=== PATIENT | female | born 1945 ===

== ENCOUNTER 2016-11-14 20:40 | Emergency (ER) | payer MEDICARE ==
[2016-11-14 20:40] VITALS: BMI 26.0
[2016-11-14] MEDS ORDERED: Oxycodone/Acetaminophen 5/325 mg Tab PO ONE (21:44)
[2016-11-14] MEDS ORDERED: Oxycodone/Acetaminophen 5/325 mg Tab ONE (21:45)
--- NOTE | 2016-11-14 21:45 | ED PDOC ---
Upper Extremity Pain/Injury Time Seen by Provider: 11/14/16 21:03 Chief Complaint (Nursing): Upper Extremity Problem/Injury Chief Complaint (Provider): right arm pain History Per: Patient History/Exam Limitations: no limitations Additional Complaint(s): patient presents for evaluation of right arm pain that started after a fall 2015 she states she took her pain medications at 4pm, which were given to her today, it helped a little but pain returned thus prompted re-evaluation (-) weakness, tingling to the arm. no new injury of note patient seen here 11/13 and earlier today for same. she notes following up once with her doctor 2 weeks ago, he gave her an injection which helped the pain, she used the shoulder sling for a few days. Past Medical History Reviewed: Historical Data, Nursing Documentation, Vital Signs Vital Signs: Last Vital Signs Temp 98.1 F 11/14/16 21:13 Pulse 75 11/14/16 21:13 Resp 16 11/14/16 21:13 BP 159/74 H 11/14/16 21:13 Pulse Ox 100 11/14/16 21:13 - Medical History PMH: Diabetes, Gastritis, HTN, Hypercholesterolemia - Family History Family History: States: Unknown Family Hx - Living Arrangements Living Arrangements: With Family - Social History Current smoker - smoking cessation education provided: No Alcohol: Occasional Drugs: Denies - Home Medications Home Medications: Ambulatory Orders Medication Instructions Recorded Ciprofloxacin/Ciprofloxa HCl 500 mg PO Q12 #14 tab 04/26/15 [Ciprofloxacin] Dicyclomine [Bentyl] 20 mg PO Q12 PRN #20 tab 04/26/15 Naproxen [Naprosyn] 500 mg PO BID PRN #14 tablet 09/16/16 traMADol [Ultram] 50 mg PO TID PRN #12 tab 09/16/16 Acetaminophen/Codeine 1 ea PO Q6 PRN #10 tab 11/13/16 [Tylenol/Codeine 300 MG/30 MG] Ibuprofen [Motrin Tab] 800 mg PO Q8 PRN #20 tab 11/14/16 Metaxalone [Skelaxin] 800 mg PO TID PRN #15 tablet 11/14/16 oxyCODONE/Acetaminophen [Percocet 1 ea PO Q8 #6 tab 11/14/16 5/325 mg Tab] - Allergies Allergies/Adverse Reactions: Allergies Allergy/AdvReac Type Severity Reaction Status Date / Time No Known Allergies Allergy Verified 11/14/16 13:50 Review of Systems ROS Statement: Except As Marked, All Systems Reviewed And Found Negative Constitutional: Negative for: Fever Cardiovascular: Negative for: Chest Pain Respiratory: Negative for: Shortness of Breath Neurological: Negative for: Headache, Dizziness Physical Exam - Reviewed Nursing Documentation Reviewed: Yes Vital Signs Reviewed: Yes - Physical Exam Appears: Positive for: Well Head Exam: Positive for: NORMAL INSPECTION Skin: Positive for: Normal Color, Warm, Dry Eye Exam: Positive for: Normal appearance Neck: Positive for: Normal, Painless ROM, Supple Cardiovascular/Chest: Positive for: Regular Rate, Rhythm. Negative for: Tachycardia Respiratory: Positive for: Normal Breath Sounds. Negative for: Respiratory Distress Pulses-Radial (L): 2+ Pulses-Radial (R): 2+ Extremity: Positive for: Normal ROM (with some pain to the right shoulder with overhead movement, no crepitus ), Tenderness, Capillary Refill (normal ). Negative for: Calf Tenderness, Deformity, Swelling Lymphatic: Positive for: Normal Exam Neurologic/Psych: Positive for: Alert, Oriented, Gait (normal ), Other ( strength 5/5 upper and lower extremities ). Negative for: Motor/Sensory Deficits - ECG O2 Sat by Pulse Oximetry: 100 Pulse Ox Interpretation: Normal Medical Decision Making Medical Decision Makin71 y/o with pain in the right arm since 08/2016 after fall. seen here at time of fall and 11/13 and 11/14 charts reviewed, ct and xray no acute finding exam is benign, she appears in NAD Dr. Robbins in at bedside for evaluation. no further imaging needed. will give 1 percocet and several for discharge. she will continue motrin and muscle relaxer percocet 5mg ordered toradol 30mg IM ordered pain improved discussed with her the need for close follow up. shoulder sling for comfort. Disposition - Clinical Impression Clinical Impression: Arm pain - Patient ED Disposition Is Patient to be Admitted: No Counseled Patient/Family Regarding: Diagnosis, Need For Followup, Rx Given - Disposition Referrals: [facility] [Outside] [facility] [Outside] [facility] [Outside] Greg Schafer MD [Staff Provider] - Raleigh Spann MD [Staff Provider] - Disposition: Routine/Home Disposition Time: 22:11 Condition: IMPROVED Additional Instructions: your pain is been ongoing for several months you need to follow up without fail with your primary care doctor and referral to orthopedic surgeon Prescriptions: oxyCODONE/Acetaminophen [Percocet 5/325 mg Tab] 1 ea PO Q8 #6 tab Instructions: Shoulder Sprain (ED), Arm Pain (ED) Print Language: HUNGARIAN
[2016-11-14 22:46] VITALS: BP 149/68; PULSE 83; RESP 17; TEMP 98.7; O2SAT 98
== END 2016-11-14 22:46 | disposition home or self-care (01) ==
LOC: H.ER 20:40
DX: M79.601 Pain in right arm (principal)
CPT/HCPCS: 96372; 99281; 99283; J1885

== ENCOUNTER 2017-09-20 08:44 | Emergency (ER) | payer MEDICARE ==
[2017-09-20 08:44] VITALS: BMI 26.0
[2017-09-20 09:01] VITALS: TEMP 97.2
[2017-09-20] MEDS ORDERED: Morphine 4 MG/ML VIAL IVP STA (09:40)
[2017-09-20] MEDS ORDERED: Labetalol 5mg/ml (4ml) IVP STA (09:44)
[2017-09-20 10:10] LABS: VENOUS BLOOD GAS BASE EXCESS 3.8 mmol/L (0.0-2.0); VENOUS BLOOD GAS PCO2 29 mmHg (40-60); VENOUS BLOOD GAS PO2 21 mm/Hg (30-55); VENOUS BLOOD PH 7.55 (7.32-7.43)
[2017-09-20] MEDS ORDERED: Morphine 4 MG/ML VIAL ONE (10:11)
[2017-09-20] MEDS ORDERED: Labetalol 5mg/ml (4ml) ONE (10:11)
[2017-09-20] MEDS ORDERED: Albuterol 0.083% Inhal Sol (2.5 mg/3 mL) UD ONE (10:12)
[2017-09-20 10:16] LABS: BASO # 0.1 K/uL (0.0-0.2); BASO % 0.8 % (0.0-2.0); EOS % 0.2 % (0.0-4.0); LYMPH # 2.2 K/uL (1.0-4.3); LYMPH % 21.8 % (20.0-40.0); MEAN CELL VOLUME 91.1 fl (81.0-99.0); MEAN CORPUSCULAR HEMOGLOBIN 29.8 pg (27.0-31.0); MEAN CORPUSCULAR HGB CONC 32.7 g/dL (33.0-37.0); MEAN PLATELET VOLUME 8.2 fl (7.2-11.7); MONO # 0.7 K/uL (0.0-0.8); MONO % 7.4 % (0.0-10.0); NEUT # 6.9 K/uL (1.8-7.0); NEUT % 69.8 % (50.0-75.0); NRBC % 0.1 % (0.0-0.0); RBC 4.37 Mil/uL (3.80-5.20); RED CELL DISTRIBUTION WIDTH 13.1 % (11.5-14.5); WHITE BLOOD COUNT 9.9 K/uL (4.8-10.8)
[2017-09-20 10:29] LABS: ALB/GLOB RATIO 1.3 (1.0-2.1); ALBUMIN 4.5 g/dL (3.5-5.0); ALT/SGPT 33 U/L (9-52); AST/SGOT 21 U/L (14-36); BLOOD UREA NITROGEN 16 mg/dl (7-17); CALCIUM 9.1 mg/dL (8.4-10.2); GFR AFRICAN-AMERICAN > 60; GFR NON-AFRICAN AMERICAN > 60; LIPASE 114 U/L (23-300)
--- NOTE | 2017-09-20 10:38 | CT ---
PROCEDURE: CT HEAD WITHOUT CONTRAST. HISTORY: headache hypertensive COMPARISON: CT head dated 04/09/2012 TECHNIQUE: Axial computed tomography images were obtained through the head/brain without intravenous contrast. Radiation dose: Total exam DLP = 888.3 mGy-cm. This CT exam was performed using one or more of the following dose reduction techniques: Automated exposure control, adjustment of the mA and/or kV according to patient size, and/or use of iterative reconstruction technique. FINDINGS: HEMORRHAGE: No intracranial hemorrhage. BRAIN: No mass effect or edema. Tiny left basal ganglia lacune infarct versus prominent perivascular space redemonstrated. No atrophy or chronic microvascular ischemic changes. VENTRICLES: Unremarkable. No hydrocephalus. CALVARIUM: Unremarkable. PARANASAL SINUSES: Unremarkable as visualized. No significant inflammatory changes. MASTOID AIR CELLS: Unremarkable as visualized. No inflammatory changes. OTHER FINDINGS: None. IMPRESSION: No acute intracranial pathology.
[2017-09-20] MEDS ORDERED: Sodium Chloride 0.9% 1,000 ML IV STA (11:13)
--- NOTE | 2017-09-20 11:32 | ED PDOC ---
HPI: Abdomen Time Seen by Provider: 09/20/17 09:07 Chief Complaint (Nursing): Abdominal Pain Chief Complaint (Provider): Abdominal Pain and Vomiting History Per: Patient History/Exam Limitations: no limitations Onset/Duration Of Symptoms: Days (x3) Current Symptoms Are (Timing): Still Present Location Of Pain/Discomfort: Epigastric Quality Of Discomfort: "Pain" Associated Symptoms: Vomiting (non bloody; non bilious). denies: Diarrhea Additional Complaint(s): 72 year old female with a past medical history of diabetes and hypertension presents to the ED complaining of abdominal pain and vomiting x3 days (non blood , non bilious). The patient states the pain is non radiating and localized to the epigastric are and is constantly getting worse. She states that since yesterday she has been having several episodes of vomiting and is unable to tolerate PO. Denies diarrhea. As per patient, yesterday she also developed a right sided headache associated with dizziness. She states that she feel most dizzy when she gets up and tries to walk around. The patient reports that she fell a few times and hasn't been eating or drinking. Denies pain or injury due to fall. Vital signs noted in ED patient is in hypertensive urgency. PMD: Dr. Roy Abnormal Vaginal Bleeding: No Past Medical History Reviewed: Historical Data, Nursing Documentation, Vital Signs Vital Signs: Last Vital Signs Temp 97.2 F L 09/20/17 08:57 Pulse 72 09/20/17 14:12 Resp 17 09/20/17 14:12 BP 180/79 H 09/20/17 14:12 Pulse Ox 98 09/20/17 17:08 - Medical History PMH: Diabetes, Gastritis, HTN, Hypercholesterolemia - Surgical History Surgical History: No Surg Hx - Family History Family History: States: Unknown Family Hx - Social History Current smoker - smoking cessation education provided: No Ex-Smoker (has not smoked in the last 12 months): No Alcohol: None Drugs: Denies - Home Medications Home Medications: Ambulatory Orders Medication Instructions Recorded Ciprofloxacin/Ciprofloxa HCl 500 mg PO Q12 #14 tab 04/26/15 [Ciprofloxacin] Dicyclomine [Bentyl] 20 mg PO Q12 PRN #20 tab 04/26/15 Naproxen [Naprosyn] 500 mg PO BID PRN #14 tablet 09/16/16 traMADol [Ultram] 50 mg PO TID PRN #12 tab 09/16/16 Acetaminophen/Codeine 1 ea PO Q6 PRN #10 tab 11/13/16 [Tylenol/Codeine 300 MG/30 MG] Ibuprofen [Motrin Tab] 800 mg PO Q8 PRN #20 tab 11/14/16 Metaxalone [Skelaxin] 800 mg PO TID PRN #15 tablet 11/14/16 oxyCODONE/Acetaminophen [Percocet 1 ea PO Q8 #6 tab 11/14/16 5/325 mg Tab] - Allergies Allergies/Adverse Reactions: Allergies Allergy/AdvReac Type Severity Reaction Status Date / Time No Known Allergies Allergy Verified 09/20/17 08:57 Review of Systems ROS Statement: Except As Marked, All Systems Reviewed And Found Negative Gastrointestinal: Positive for: Vomiting, Abdominal Pain (epigastric) Neurological: Positive for: Headache (right sided), Dizziness Physical Exam - Reviewed Nursing Documentation Reviewed: Yes Vital Signs Reviewed: Yes - Physical Exam Appears: Positive for: Uncomfortable Head Exam: Positive for: ATRAUMATIC, NORMAL INSPECTION, NORMOCEPHALIC Skin: Positive for: Normal Color, Warm, Dry. Negative for: Rash Eye Exam: Positive for: Normal appearance, EOMI, PERRL. Negative for: Nystagmus ENT: Positive for: Normal ENT Inspection Neck: Positive for: Normal, Painless ROM, Supple Cardiovascular/Chest: Positive for: Regular Rate, Rhythm, Chest Non Tender. Negative for: Tachycardia Respiratory: Positive for: Normal Breath Sounds. Negative for: Wheezing, Respiratory Distress Gastrointestinal/Abdominal: Positive for: Soft, Tenderness (epigastric tenderness). Negative for: Guarding, Rebound Back: Positive for: Normal Inspection. Negative for: L CVA Tenderness, R CVA Tenderness Extremity: Positive for: Normal ROM. Negative for: Tenderness, Deformity, Swelling Neurologic/Psych: Positive for: Alert, Oriented - Laboratory Results Result Diagrams: 09/20/17 10:09 09/20/17 10:09 - ECG ECG Rhythm: Positive for: Normal QRS, Normal ST Segment, Sinus Rhythm (69bpm) O2 Sat by Pulse Oximetry: 98 (RA) Pulse Ox Interpretation: Normal Medical Decision Making Medical Decision Makin Initial Impression 72 y/o female presenting with abdominal pain and hypertension Differentials: include small bowel obstruction, gastritis, pancreatitis, gall bladder disease, ACS, mesenteric ischemia Initial Plan: * Labs * CT abdomen * CTA abdomen * US gallbladder * reassess * 1036 PROCEDURE: CT HEAD WITHOUT CONTRAST FINDINGS: HEMORRHAGE: No intracranial hemorrhage. BRAIN: No mass effect or edema. Tiny left basal ganglia lacune infarct versus prominent perivascular space redemonstrated. No atrophy or chronic microvascular ischemic changes. VENTRICLES: Unremarkable. No hydrocephalus. CALVARIUM: Unremarkable. PARANASAL SINUSES: Unremarkable as visualized. No significant inflammatory changes. MASTOID AIR CELLS: Unremarkable as visualized. No inflammatory changes. OTHER FINDINGS: None. IMPRESSION: No acute intracranial pathology 1328 PROCEDURE: CT Abdomen and Pelvis with contrast HISTORY: abdominal pain vomiting FINDINGS: LOWER THORAX: Cardiomegaly. Coronary arterial and valvular calcifications. Bibasilar atelectasis. LIVER: Unremarkable. No gross lesion or ductal dilatation. GALLBLADDER AND BILE DUCTS: Minimal cholelithiasis without gallbladder wall thickening or pericholecystic fluid. PANCREAS: Unremarkable. No gross lesion or ductal dilatation. SPLEEN: Unremarkable. ADRENALS: No mass. KIDNEYS AND URETERS: Bilateral renal simple cysts. No hydronephrosis. No solid mass. VASCULATURE: Heavy calcific atherosclerosis of the aorta and its branch vessels. No aortic aneurysm. BOWEL: Unremarkable. No obstruction. No gross mural thickening. APPENDIX: Normal appendix. PERITONEUM: Fat containing umbilical hernia. No free fluid. No free air. LYMPH NODES: Unremarkable. No enlarged lymph nodes. BLADDER: Unremarkable. REPRODUCTIVE: Unremarkable. BONES: No acute fracture. OTHER FINDINGS: None. IMPRESSION: No acute abdominal pelvic pathology. Stable findings as above. 1325 PROCEDURE: CT Angiography Abdomen with Contrast HISTORY: abdominal pain vomiting COMPARISON: Correlation is made to CT scan of the abdomen pelvis dated 04/25/2015. FINDINGS: CT ANGIOGRAPHY: LOWER THORAX: Cardiomegaly. Coronary arterial valvular calcifications. Bibasilar atelectasis. LIVER: Unremarkable. No gross lesion or ductal dilatation. GALLBLADDER AND BILE DUCTS: Minimal cholelithiasis without gallbladder wall thickening or pericholecystic fluid. PANCREAS: Unremarkable. No gross lesion or ductal dilatation. SPLEEN: Unremarkable. ADRENALS: Unremarkable. No mass. KIDNEYS AND URETERS: Bilateral renal simple cysts. No hydronephrosis. No solid mass. STOMACH AND BOWEL: Unremarkable. No obstruction. No gross mural thickening. PERITONEUM: Fat containing umbilical hernia. No free fluid. No free air. LYMPH NODES: Unremarkable. No enlarged lymph nodes. BONES: No acute fracture. OTHER FINDINGS: Vasculature: No aneurysmal dilatation. Heavy calcific atherosclerosis of the aorta and its branch vessels. Patent ostia of the celiac, SMA, ALLEN and bilateral renal arteries. IMPRESSION: No evidence of abdominal aortic aneurysm or mesenteric ischemia. 17:07 Gallbladder Ultrasound Results FINDINGS: LIVER: Enlarged, measuring 19 cm in length. Increased echogenicity of the liver parenchyma. No mass. No intrahepatic bile duct dilatation. GALLBLADDER: Mobile cholelithiasis without gallbladder wall thickening or pericholecystic fluid. Sonographic Hoover's sign was not elicited. COMMON BILE DUCT: Measures 6 mm. No stones. No dilatation. PANCREAS: Unremarkable as visualized. No mass. No ductal dilatation. RIGHT KIDNEY: Measures 10.4 x 5.5 x 4.6 cm in length. Normal echogenicity. No calculus, mass, or hydronephrosis. AORTA: No aneurysmal dilatation. IVC: Unremarkable. OTHER FINDINGS: None . IMPRESSION: Hepatomegaly with steatosis. Cholelithiasis without sonographic evidence for acute cholecystitis. - Documented by Kathy Tim acting as a scribe for Jeramy Salas MD. All medical record entries made by the Scribe were at my direction and personally dictated by me. I have reviewed the chart and agree that the record accurately reflects my personal performance of the history, physical exam, medical decision making, and the department course for this patient. I have also personally directed, reviewed, and agree with the discharge instructions and disposition. Scribe Attestation: Documented by Dora Wilks, acting as a scribe for Jeramy Salas MD Provider Scribe Attestation: All medical record entries made by the Scribe were at my direction and personally dictated by me. I have reviewed the chart and agree that the record accurately reflects my personal performance of the history, physical exam, medical decision making, and the department course for this patient. I have also personally directed, reviewed, and agree with the discharge instructions and disposition. Disposition - Clinical Impression Clinical Impression: Gallbladder disease, Abdominal pain in female - Patient ED Disposition Is Patient to be Admitted: No Doctor Will See Patient In The: Office Counseled Patient/Family Regarding: Studies Performed, Diagnosis, Need For Followup - Disposition Referrals: Lev Roy MD [Medical Doctor] - Disposition Time: 17:00 Condition: GOOD Additional Instructions: Follow up with your PCP in 2-3 days. Return for worsening. Instructions: Gallstones (ED), Abdominal Pain (ED) Print Language: SURINAMESE
[2017-09-20] MEDS ORDERED: Iodixanol 320 MG/ML 100 ML BOTTLE IV ONE (11:39)
[2017-09-20] MEDS ORDERED: Sodium Chloride 0.9% 50 ML IV ONE (11:39)
--- NOTE | 2017-09-20 13:27 | CT ---
PROCEDURE: CT Angiography Abdomen with Contrast HISTORY: abdominal pain vomiting COMPARISON: Correlation is made to CT scan of the abdomen pelvis dated 04/25/2015. TECHNIQUE: Technique: CT angiography of the abdomen performed in the arterial phase of enhancement. Coronal and sagittal reformats, and well as rotating MIP images of the vessels generated at the workstation. Intravenous contrast dose: 100 mL Visipaque 320 Radiation dose: Total exam DLP = 546.9 mGy-cm. This CT exam was performed using one or more of the following dose reduction techniques: Automated exposure control, adjustment of the mA and/or kV according to patient size, and/or use of iterative reconstruction technique. FINDINGS: CT ANGIOGRAPHY: LOWER THORAX: Cardiomegaly. Coronary arterial valvular calcifications. Bibasilar atelectasis. LIVER: Unremarkable. No gross lesion or ductal dilatation. GALLBLADDER AND BILE DUCTS: Minimal cholelithiasis without gallbladder wall thickening or pericholecystic fluid. PANCREAS: Unremarkable. No gross lesion or ductal dilatation. SPLEEN: Unremarkable. ADRENALS: Unremarkable. No mass. KIDNEYS AND URETERS: Bilateral renal simple cysts. No hydronephrosis. No solid mass. STOMACH AND BOWEL: Unremarkable. No obstruction. No gross mural thickening. PERITONEUM: Fat containing umbilical hernia. No free fluid. No free air. LYMPH NODES: Unremarkable. No enlarged lymph nodes. BONES: No acute fracture. OTHER FINDINGS: Vasculature: No aneurysmal dilatation. Heavy calcific atherosclerosis of the aorta and its branch vessels. Patent ostia of the celiac, SMA, ALLEN and bilateral renal arteries. IMPRESSION: No evidence of abdominal aortic aneurysm or mesenteric ischemia.
--- NOTE | 2017-09-20 13:29 | CT ---
PROCEDURE: CT Abdomen and Pelvis with contrast HISTORY: abdominal pain vomiting COMPARISON: CT scan of the abdomen and pelvis dated 04/25/2015. TECHNIQUE: Contrast dose: 100 mL Visipaque 320 Radiation dose: Total exam DLP = 720.5 mGy-cm. This CT exam was performed using one or more of the following dose reduction techniques: Automated exposure control, adjustment of the mA and/or kV according to patient size, and/or use of iterative reconstruction technique. FINDINGS: LOWER THORAX: Cardiomegaly. Coronary arterial and valvular calcifications. Bibasilar atelectasis. LIVER: Unremarkable. No gross lesion or ductal dilatation. GALLBLADDER AND BILE DUCTS: Minimal cholelithiasis without gallbladder wall thickening or pericholecystic fluid. PANCREAS: Unremarkable. No gross lesion or ductal dilatation. SPLEEN: Unremarkable. ADRENALS: No mass. KIDNEYS AND URETERS: Bilateral renal simple cysts. No hydronephrosis. No solid mass. VASCULATURE: Heavy calcific atherosclerosis of the aorta and its branch vessels. No aortic aneurysm. BOWEL: Unremarkable. No obstruction. No gross mural thickening. APPENDIX: Normal appendix. PERITONEUM: Fat containing umbilical hernia. No free fluid. No free air. LYMPH NODES: Unremarkable. No enlarged lymph nodes. BLADDER: Unremarkable. REPRODUCTIVE: Unremarkable. BONES: No acute fracture. OTHER FINDINGS: None. IMPRESSION: No acute abdominal pelvic pathology. Stable findings as above.
[2017-09-20] MEDS ORDERED: Alum-Mag Hydrox-Simethicone Susp (30 mL) PO ONE (13:52)
[2017-09-20 14:04] VITALS: O2SAT 98
[2017-09-20] MEDS ORDERED: Alum-Mag Hydrox-Simethicone Susp (30 mL) ONE (14:07)
[2017-09-20 14:13] VITALS: BP 180/79; PULSE 72; RESP 17
--- NOTE | 2017-09-20 15:52 | US ---
HISTORY: abdominal pain epigastric COMPARISON: Correlations made to CT scan performed earlier the same day. TECHNIQUE: Sonographic evaluation of the right upper quadrant of the abdomen. FINDINGS: LIVER: Enlarged, measuring 19 cm in length. Increased echogenicity of the liver parenchyma. No mass. No intrahepatic bile duct dilatation. GALLBLADDER: Mobile cholelithiasis without gallbladder wall thickening or pericholecystic fluid. Sonographic Hoover's sign was not elicited. COMMON BILE DUCT: Measures 6 mm. No stones. No dilatation. PANCREAS: Unremarkable as visualized. No mass. No ductal dilatation. RIGHT KIDNEY: Measures 10.4 x 5.5 x 4.6 cm in length. Normal echogenicity. No calculus, mass, or hydronephrosis. AORTA: No aneurysmal dilatation. IVC: Unremarkable. OTHER FINDINGS: None . IMPRESSION: Hepatomegaly with steatosis. Cholelithiasis without sonographic evidence for acute cholecystitis.
--- NOTE | 2017-09-21 08:11 | CARD ---
APPROVED REPORT EKG Measurement Heart [id number] <Conclusion> Normal sinus rhythm Left ventricular hypertrophy with repolarization abnormality Abnormal ECG
== END 2017-09-20 17:54 | disposition home or self-care (01) ==
LOC: H.ER 08:44
DX: K80.20 Calculus of gallbladder without cholecystitis without obstruction (principal); E11.9 Type 2 diabetes mellitus without complications; E78.00 Pure hypercholesterolemia, unspecified; I10 Essential (primary) hypertension; Z87.891 Personal history of nicotine dependence
CPT/HCPCS: 70450; 74175; 74177; 76705; 80053; 82803; 82948; 83690; 84484; 85025; 93005; 96374; 96375; 99283; J2270; J2405; J7040; Q9967

== ENCOUNTER 2018-06-10 06:18 | Emergency (ER) | payer MEDICARE ==
[2018-06-10 06:18] VITALS: BMI 26.0
[2018-06-10 06:46] VITALS: TEMP 98.2
[2018-06-10] MEDS ORDERED: Sodium Chloride 0.45% 1,000 ML IV SCH (07:15)
[2018-06-10] MEDS ORDERED: Enalaprilat 2.5 MG/2 ML IVP STA ×2 (07:18→09:07)
[2018-06-10] MEDS ORDERED: EnalaprilAT 1.25 mg/ml Inj ONE (07:39)
--- NOTE | 2018-06-10 07:41 | ED PDOC ---
Syncope/Near Syncope/Dizziness Time Seen by Provider: 06/10/18 06:59 Chief Complaint (Nursing): Dizziness/Lightheaded Chief Complaint (Provider): Dizziness/Lightheaded History Per: Patient History/Exam Limitations: no limitations Onset/Duration Of Symptoms: Hrs Additional Complaint(s): 73 years old female, with history of hypertension who lives on her own presents to the ED for evaluation of dizziness associated with vomiting onset early this morning. Patient reports feeling unsteady on her feet and complains of left sided abdominal pain for a long time. She states she has been having frequency of urination since last night but denies burning. Patient reports she is on Metoprolol 25 mg. She denies any diarrhea or constipation, chest pain, back pain or shortness of breath. PMD: Lev Roy Past Medical History Reviewed: Historical Data, Nursing Documentation, Vital Signs Vital Signs: Last Vital Signs Temp 98.2 F 06/10/18 06:41 Pulse 66 06/10/18 06:57 Resp 18 06/10/18 06:57 BP 194/97 H 06/10/18 06:57 Pulse Ox 99 06/10/18 06:57 - Medical History PMH: Diabetes, Gastritis, HTN, Hypercholesterolemia - Surgical History Surgical History: No Surg Hx - Family History Family History: States: Unknown Family Hx - Social History Current smoker - smoking cessation education provided: No Alcohol: None Drugs: Denies - Home Medications Home Medications: Ambulatory Orders Medication Instructions Recorded Ciprofloxacin/Ciprofloxa HCl 500 mg PO Q12 #14 tab 04/26/15 [Ciprofloxacin] Dicyclomine [Bentyl] 20 mg PO Q12 PRN #20 tab 04/26/15 Naproxen [Naprosyn] 500 mg PO BID PRN #14 tablet 09/16/16 traMADol [Ultram] 50 mg PO TID PRN #12 tab 09/16/16 Acetaminophen/Codeine 1 ea PO Q6 PRN #10 tab 11/13/16 [Tylenol/Codeine 300 MG/30 MG] Ibuprofen [Motrin Tab] 800 mg PO Q8 PRN #20 tab 11/14/16 Metaxalone [Skelaxin] 800 mg PO TID PRN #15 tablet 11/14/16 oxyCODONE/Acetaminophen [Percocet 1 ea PO Q8 #6 tab 11/14/16 5/325 mg Tab] - Allergies Allergies/Adverse Reactions: Allergies Allergy/AdvReac Type Severity Reaction Status Date / Time No Known Allergies Allergy Verified 09/20/17 08:57 Review of Systems ROS Statement: Except As Marked, All Systems Reviewed And Found Negative Cardiovascular: Negative for: Chest Pain Respiratory: Negative for: Shortness of Breath Gastrointestinal: Positive for: Vomiting, Abdominal Pain (Left sided). Negative for: Diarrhea, Constipation Musculoskeletal: Negative for: Back Pain Neurological: Positive for: Dizziness Physical Exam - Reviewed Nursing Documentation Reviewed: Yes Vital Signs Reviewed: Yes - Physical Exam Appears: Positive for: Non-toxic, No Acute Distress Head Exam: Positive for: ATRAUMATIC, NORMOCEPHALIC Skin: Positive for: Normal Color, Warm, Dry Cardiovascular/Chest: Positive for: Regular Rate, Rhythm. Negative for: Murmur Respiratory: Positive for: Normal Breath Sounds. Negative for: Respiratory Distress Gastrointestinal/Abdominal: Positive for: Tenderness (Left lateral abdomen and epigastric ) Extremity: Positive for: Normal ROM. Negative for: Tenderness, Swelling Neurologic/Psych: Positive for: Alert, Oriented (x3) - Laboratory Results Result Diagrams: 06/10/18 07:30 06/10/18 07:30 - ECG ECG Rhythm: Positive for: Sinus Rhythm (Normal). Negative for: ST/T Changes Rate: 64 O2 Sat by Pulse Oximetry: 99 (RA) Pulse Ox Interpretation: Normal - Progress Re-evaluation Time: 10:45 Condition: Re-examined, Improved Medical Decision Making Medical Decision Making: Time: 714 Initial Impression: Dizziness most likely due to hypertension. Initial Plan: --Blood work --EKG --Vasotec 2.5 mg IVP --Reevaluation ----- Scribe Attestation: Documented by Leilani Rascon, acting as a scribe for Jessica Messina MD. Provider Scribe Attestation: All medical record entries made by the Scribe were at my direction and personally dictated by me. I have reviewed the chart and agree that the record accurately reflects my personal performance of the history, physical exam, medical decision making, and the department course for this patient. I have also personally directed, reviewed, and agree with the discharge instructions and disposition. Disposition - Clinical Impression Clinical Impression: Hypertension - Patient ED Disposition Is Patient to be Admitted: No Doctor Will See Patient In The: Office Counseled Patient/Family Regarding: Diagnosis, Need For Followup - Disposition Disposition: Routine/Home Disposition Time: 10:45 Condition: IMPROVED Additional Instructions: Continue with your current medications. Followup with your personal doctor in 2- 3 days. Instructions: High Blood Pressure in Adults Forms: [facility] (Spanish) Print Language: VIETNAMESE - POA Present On Arrival: None
[2018-06-10 07:49] LABS: ALB/GLOB RATIO 1.3 (1.0-2.1); ALBUMIN 4.4 g/dL (3.5-5.0); ALT/SGPT 27 U/L (9-52); AST/SGOT 27 U/L (14-36); BASO # 0.1 K/uL (0.0-0.2); BASO % 0.6 % (0.0-2.0); BLOOD UREA NITROGEN 18 mg/dl (7-17); CALCIUM 9.1 mg/dL (8.4-10.2); EOS # 0.1 K/uL (0.0-0.7); EOS % 1.7 % (0.0-4.0); GFR NON-AFRICAN AMERICAN > 60; HEMOGLOBIN 13.2 g/dL (12.0-16.0); LYMPH # 1.6 K/uL (1.0-4.3); LYMPH % 19.2 % (20.0-40.0); MEAN CELL VOLUME 92.2 fl (81.0-99.0); MEAN CORPUSCULAR HEMOGLOBIN 31.2 pg (27.0-31.0); MEAN CORPUSCULAR HGB CONC 33.8 g/dL (33.0-37.0); MEAN PLATELET VOLUME 8.3 fl (7.2-11.7); MONO # 0.6 K/uL (0.0-0.8); MONO % 7.4 % (0.0-10.0); NEUT % 71.1 % (50.0-75.0); RBC 4.23 Mil/uL (3.80-5.20); WHITE BLOOD COUNT 8.5 K/uL (4.8-10.8)
[2018-06-10 11:47] VITALS: BP 162/72; PULSE 56; RESP 17; O2SAT 100
--- NOTE | 2018-06-10 12:57 | CARD ---
APPROVED REPORT Date of service: 06/10/2018 EKG Measurement Heart [id number] <Conclusion> Normal sinus rhythm Minimal voltage criteria for LVH, may be normal variant otherwise normal ECG
== END 2018-06-10 11:40 | disposition home or self-care (01) ==
LOC: H.ER 06:18
DX: I10 Essential (primary) hypertension (principal); E11.9 Type 2 diabetes mellitus without complications; E78.00 Pure hypercholesterolemia, unspecified

== ENCOUNTER 2018-08-12 23:53 | Inpatient (IN) | payer MEDICARE, OTHER ==
[2018-08-13] MEDS ORDERED: Sodium Chloride 0.9% 1,000 ML IV STA (00:10)
--- NOTE | 2018-08-13 00:35 | ED PDOC ---
HPI:Nausea, Vomiting, Diarrhea Time Seen by Provider: 08/13/18 00:01 Chief Complaint (Nursing): Abdominal Pain Chief Complaint (Provider): Abdominal Pain History Per: Patient History/Exam Limitations: no limitations Onset/Duration Of Symptoms: Days (x1) Current Symptoms Are (Timing): Still Present Context: Food Additional Complaint(s): 73 year old female with pmHx of HTN, DM, and gastritis arrives to ED with complaints of abdominal pain, 10 episodes of nonbloody, nonbilious vomiting, and 4 episodes of nonbloody diarrhea for 1 day. Patient states onset of symptoms started 2 hours after eating seafood. She also c/o generalized weak ness and dizziness PCP: Dr. Lev Roy Past Medical History Reviewed: Historical Data, Nursing Documentation, Vital Signs Vital Signs: Last Vital Signs Temp 97.9 F 08/12/18 23:58 Pulse 80 08/12/18 23:58 Resp 18 08/12/18 23:58 BP 255/107 H 08/12/18 23:58 Pulse Ox 99 08/12/18 23:58 - Medical History PMH: Diabetes, Gastritis, HTN, Hypercholesterolemia - Surgical History Surgical History: No Surg Hx - Family History Family History: States: Unknown Family Hx - Social History Current smoker - smoking cessation education provided: No Alcohol: None Drugs: Denies - Home Medications Home Medications: Ambulatory Orders Medication Instructions Recorded Atorvastatin [Lipitor] 20 mg PO DAILY 08/13/18 Pantoprazole Sodium [Protonix] 40 mg PO DAILY 08/13/18 RX: Meclizine [Antivert] 12.5 mg PO DAILY 08/13/18 RX: MetFORMIN [glucoPHAGE] 1,000 mg PO BID 08/13/18 RX: Metoprolol Succinate 50 mg PO DAILY 08/13/18 [Kapsp[place] Sprinkle] - Allergies Allergies/Adverse Reactions: Allergies Allergy/AdvReac Type Severity Reaction Status Date / Time No Known Allergies Allergy Verified 09/20/17 08:57 Review of Systems ROS Statement: Except As Marked, All Systems Reviewed And Found Negative Gastrointestinal: Positive for: Nausea (NBNB x10), Vomiting, Abdominal Pain, Diarrhea (NB x4) Physical Exam - Reviewed Nursing Documentation Reviewed: Yes Vital Signs Reviewed: Yes - Physical Exam Appears: Positive for: Non-toxic, No Acute Distress Head Exam: Positive for: ATRAUMATIC, NORMAL INSPECTION, NORMOCEPHALIC Skin: Positive for: Normal Color Eye Exam: Positive for: Normal appearance ENT: Positive for: Normal ENT Inspection Neck: Positive for: Normal Cardiovascular/Chest: Positive for: Regular Rate, Rhythm Respiratory: Positive for: Normal Breath Sounds. Negative for: Respiratory Distress Gastrointestinal/Abdominal: Positive for: Soft, Tenderness (epigastric) Back: Positive for: Normal Inspection. Negative for: L CVA Tenderness, R CVA Tenderness Extremity: Positive for: Normal ROM (upper/lower) Neurologic/Psych: Positive for: Alert, Oriented - Laboratory Results Result Diagrams: 08/13/18 00:52 08/13/18 00:52 - ECG O2 Sat by Pulse Oximetry: 99 (RA) Pulse Ox Interpretation: Normal - Critical Care Total Time (In Min): 30 Documented Critical Care: Time excludes all time spent performint seperately billable procedures Medical Decision Making Medical Decision Making: Initial Impression: 73 year old with diarrheal illness, abdominal pain, and vomiting and hypertension Initial Plan: * EKG * Labs * Bentyl 20mg PO * IV fluids * Pepcid 20mg IV * Zofran 4mg IV * Accucheck CT A/P NAd CT Head NAd Time: 0456 --Labs reviewed: (+) hyperglycemia. Indicative for mild dehydration due to depressed CO2 and hypokalemia. Upon provider reevaluation, patient continues to report persistent weakness, dizziness, and abdominal pain. Patient will be admitted to hospital with case referred to medical services regional engagement consultant, Dr. Gore. Clinical Impression: Viral syndrome; Intractable vertigo; Dehydration; Gastroenteritis Scribe Attestation: Documented by Alea Vines, acting as a scribe for Herb Sullivan MD. Provider Scribe Attestation: All medical record entries made by the Scribe were at my direction and personally dictated by me. I have reviewed the chart and agree that the record accurately reflects my personal performance of the history, physical exam, medical decision making, and the department course for this patient. I have also personally directed, reviewed, and agree with the discharge instructions and disposition. Disposition - Clinical Impression Clinical Impression: Gastroenteritis, Vertigo, Dehydration, Hypokalemia - Patient ED Disposition Is Patient to be Admitted: Yes Discussed With Dr.: Meghan Gifford Seman - Disposition Disposition Time: 04:56 Condition: FAIR - Pt Status Changed To: Hospital Disposition Of: Inpatient - Admit Certification Admit to Inpatient:: After my assessment, the patient will require hospitalization for at least two midnights. This is because of the severity of symptoms shown, intensity of services needed, and/or the medical risk in this patient being treated as an outpatient.
[2018-08-13 00:57] LABS: BASO # 0.1 K/uL (0.0-0.2); BASO % 0.6 % (0.0-2.0); EOS # 0.1 K/uL (0.0-0.7); EOS % 1.3 % (0.0-4.0); HEMOGLOBIN 13.5 g/dL (12.0-16.0); LYMPH # 2.1 K/uL (1.0-4.3); LYMPH % 24.9 % (20.0-40.0); MEAN CELL VOLUME 91.3 fl (81.0-99.0); MEAN CORPUSCULAR HEMOGLOBIN 30.7 pg (27.0-31.0); MEAN CORPUSCULAR HGB CONC 33.6 g/dL (33.0-37.0); MEAN PLATELET VOLUME 8.4 fl (7.2-11.7); MONO # 0.6 K/uL (0.0-0.8); MONO % 7.3 % (0.0-10.0); NEUT # 5.6 K/uL (1.8-7.0); NEUT % 65.9 % (50.0-75.0); RBC 4.4 Mil/uL (3.80-5.20); RED CELL DISTRIBUTION WIDTH 13.2 % (11.5-14.5); WHITE BLOOD COUNT 8.4 K/uL (4.8-10.8)
[2018-08-13 01:05] LABS: ALB/GLOB RATIO 1.2 (1.0-2.1); ALBUMIN 4.8 g/dL (3.5-5.0); ALT/SGPT 41 U/L (9-52); AST/SGOT 30 U/L (14-36); BLOOD UREA NITROGEN 18 mg/dl (7-17); CALCIUM 9.6 mg/dL (8.4-10.2); GFR NON-AFRICAN AMERICAN > 60; LIPASE 165 U/L (23-300)
[2018-08-13] MEDS ORDERED: Iohexol 300 100 ML IJ ONE (03:13)
[2018-08-13] MEDS ORDERED: Sodium Chloride 0.9% 50 ML IV ONE (03:13)
[2018-08-13] MEDS ORDERED: Potassium CL 10 MEQ/50 ML 50 ML IVPB ONE (04:58)
[2018-08-13] MEDS ORDERED: Potassium CL 10 MEQ/50 ML 50 ML ONE (05:04)
[2018-08-13 05:29] LABS: URINE BILIRUBIN NEGATIVE (NEGATIVE); URINE BLOOD NEGATIVE (NEGATIVE); URINE CLARITY CLEAR (Clear); URINE COLOR STRAW (YELLOW); URINE GLUCOSE (UA) >=500 mg/dL (Normal); URINE LEUKOCYTE ESTERASE NEG Leu/uL (Negative); URINE PROTEIN 30 mg/dL (NEGATIVE); URINE UROBILINOGEN 0.2-1.0 mg/dL (0.2-1.0)
[2018-08-13] MEDS ORDERED: cefTRIAXone (Rocephin) 1 gm Inj ONE (07:21)
[2018-08-13] MEDS ORDERED: Dextrose 50% SYRINGE Inj (50 ml) IV PRN (08:17)
[2018-08-13] MEDS ORDERED: Glucagon Recombinant 1 mg Inj IM PRN (08:17)
--- NOTE | 2018-08-13 08:21 | CP.PCM.HP ---
History of Present Illness - History of Present Illness History of Present Illness: CC: Abdominal Pain and Vomiting History of Present Illness: A 73 year old female with pmHx of HTN, DM, and gastritis arrives to ED with complaints of Epigastric Pain 8/10 associated with 10 episodes of nonbloody, nonbilious vomiting, and 4 episodes of non-bloody diarrhea for 1 day. Patient states onset of symptoms started 2 hours after eating seafood. She also c/o generalized weakness and dizziness. PAtient was kept udder observation for Intractable vomiting. Also C/O dizziness described as vertigo. Present on Admission - Present on Admission Any Indicators Present on Admission: No Review of Systems - Review of Systems All systems: reviewed and no additional remarkable complaints except Review of Systems: as per HPI Past Patient History - Past Social History Smoking Status: Never Smoked Alcohol: None Drugs: Denies - CARDIAC Hx Hypercholesterolemia: Yes Hx Hypertension: Yes - ENDOCRINE/METABOLIC Hx Diabetes Mellitus Type 2: Yes - GASTROINTESTINAL Hx Gastritis: Yes - PSYCHIATRIC Hx Substance Use: No - SURGICAL HISTORY Hx Surgeries: No - ANESTHESIA Hx Anesthesia: No Meds Allergies/Adverse Reactions: Allergies Allergy/AdvReac Type Severity Reaction Status Date / Time No Known Allergies Allergy Verified 09/20/17 08:57 Physical Exam - Constitutional Appears: Well, No Acute Distress - Head Exam Head Exam: ATRAUMATIC, NORMAL INSPECTION, NORMOCEPHALIC - Eye Exam Eye Exam: EOMI, Normal appearance, PERRL Pupil Exam: NORMAL ACCOMODATION, PERRL - ENT Exam ENT Exam: Mucous Membranes Moist, Normal Exam - Neck Exam Neck exam: Positive for: Normal Inspection - Respiratory Exam Respiratory Exam: Clear to Auscultation Bilateral, NORMAL BREATHING PATTERN - Cardiovascular Exam Cardiovascular Exam: REGULAR RHYTHM - GI/Abdominal Exam GI & Abdominal Exam: Normal Bowel Sounds, Soft, Tenderness (Epigatsric) - Extremities Exam Extremities exam: Positive for: normal inspection - Back Exam Back exam: NORMAL INSPECTION - Neurological Exam Neurological exam: Alert, CN II-XII Intact, Normal Gait, Oriented x3, Reflexes Normal - Psychiatric Exam Psychiatric exam: Normal Affect, Normal Mood - Skin Skin Exam: Dry, Intact, Normal Color, Warm Results - Vital Signs Recent Vital Signs: Last Vital Signs Temp 98 F 08/13/18 07:17 Pulse 69 08/13/18 07:17 Resp 19 08/13/18 07:17 BP 131/68 08/13/18 07:17 Pulse Ox 100 08/13/18 07:17 - Labs Result Diagrams: 08/19/18 04:45 08/19/18 04:45 Labs: Laboratory Results - last 24 hr 08/13/18 08/13/18 08/13/18 00:47 00:52 00:52 WBC 8.4 RBC 4.40 Hgb 13.5 Hct 40.1 MCV 91.3 MCH 30.7 MCHC 33.6 RDW 13.2 Plt Count 347 MPV 8.4 Neut % (Auto) 65.9 Lymph % (Auto) 24.9 [place] % (Auto) 7.3 Eos % (Auto) 1.3 Baso % (Auto) 0.6 Neut # (Auto) 5.6 Lymph # (Auto) 2.1 [place] # (Auto) 0.6 Eos # (Auto) 0.1 Baso # (Auto) 0.1 Sodium 141 Potassium 3.3 L Chloride 105 Carbon Dioxide 21 L Anion Gap 18 BUN 18 H Creatinine 0.8 Est GFR ( Amer) > 60 Est GFR (Non-Af Amer) > 60 POC Glucose (mg/dL) 248 H Random Glucose 298 H Lactic Acid Calcium 9.6 Total Bilirubin 0.9 AST 30 ALT 41 Alkaline Phosphatase 126 Total Protein 8.9 H Albumin 4.8 Globulin 4.1 H Albumin/Globulin Ratio 1.2 Lipase 165 Urine Color Urine Clarity Urine pH Ur Specific [place] Urine Protein Urine Glucose (UA) Urine Ketones Urine Blood Urine Nitrate Urine Bilirubin Urine Urobilinogen Ur Leukocyte Esterase Urine RBC (Auto) Urine Microscopic WBC 08/13/18 08/13/18 08/13/18 05:13 05:22 07:27 WBC RBC Hgb Hct MCV MCH MCHC RDW Plt Count MPV Neut % (Auto) Lymph % (Auto) [place] % (Auto) Eos % (Auto) Baso % (Auto) Neut # (Auto) Lymph # (Auto) [place] # (Auto) Eos # (Auto) Baso # (Auto) Sodium Potassium Chloride Carbon Dioxide Anion Gap BUN Creatinine Est GFR ( Amer) Est GFR (Non-Af Amer) POC Glucose (mg/dL) 310 H Random Glucose Lactic Acid 2.2 H Calcium Total Bilirubin AST ALT Alkaline Phosphatase Total Protein Albumin Globulin Albumin/Globulin Ratio Lipase Urine Color Straw Urine Clarity Clear Urine pH 7.0 Ur Specific [place] 1.024 Urine Protein 30 Urine Glucose (UA) >=500 Urine Ketones Negative Urine Blood Negative Urine Nitrate Positive H Urine Bilirubin Negative Urine Urobilinogen 0.2-1.0 Ur Leukocyte Esterase Neg Urine RBC (Auto) 1 Urine Microscopic WBC 1 - EKG Data EKG Interpreted by: Myself EKG shows normal: Sinus rhythm, Intervals, QRS complexes, ST-T waves (non- specific changes) Rate: Normal - Imaging and Cardiology CT scan - abdomen Status: Report reviewed by me Additional comment: Date of service: 08/13/2018 PROCEDURE: CT Abdomen and Pelvis with contrast HISTORY: abd pain/diarrhea COMPARISON: Abdomen and pelvis CT with contrast 09/20/2017. TECHNIQUE: Contrast dose: Omnipaque 300, 90 cc Radiation dose: Total exam DLP = 529.44 mGy-cm. This CT exam was performed using one or more of the following dose reduction techniques: Automated exposure control, adjustment of the mA and/or kV according to patient size, and/or use of iterative reconstruction technique. FINDINGS: LOWER THORAX: Limited ground-glass opacity scattered at the bilateral bases without definite alveolitis or pleural effusion bilaterally. Small hiatal hernia reiterated as well as cardiomegaly. No pulmonary vascular congestion. LIVER: Hepatic steatosis reiterated without interval change. GALLBLADDER AND BILE DUCTS: Cholelithiasis again identified within a minimally distended gallbladder, less distended than previously shown. No definite acute interval findings. PANCREAS: Unremarkable. No gross lesion or ductal dilatation. SPLEEN: Unremarkable. ADRENALS: Unremarkable. No mass. KIDNEYS AND URETERS: Multiple bilateral renal lucencies are identified with a tiny exophytic cyst under 1 cm at the upper pole right kidney once again evident. 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 Intermediate density lucencies are stable at the lower pole right kidney measuring 1.5 cm greatest dimension once again at the upper pole left kidney measuring 2.0 cm once again. No obstructive uropathy bilaterally or definite radiodense urolithiasis. No interval perinephric reaction appreciated. VASCULATURE: Nonaneurysmal abdominal aortic calcific atherosclerotic changes are identified. BOWEL: Evaluation of the gastrointestinal tract is limited due to the lack of oral contrast administration. No obstruction. No gross mural thickening. Limited sigmoid diverticulosis without diverticulitis once again evident. APPENDIX: Normal appendix. PERITONEUM: Unremarkable. No free fluid. No free air. LYMPH NODES: Unremarkable. No enlarged lymph nodes. BLADDER: Distended but thin walled urinary bladder unremarkable appearing otherwise. REPRODUCTIVE: Limited fibroid uterine changes. BONES: No acute fracture. OTHER FINDINGS: None. IMPRESSION: 1. No definite acute abdominal or pelvic findings as discussed above. 2. Hepatic steatosis reiterated. 3. Nonacute sigmoid diverticulosis. 4. Other lesser findings as discussed above. CT scan - head Status: Report reviewed by me Additional comment: Date of service: 08/13/2018 PROCEDURE: CT HEAD WITHOUT CONTRAST. HISTORY: dizziness COMPARISON: Noncontrast head CT 09/20/2017. TECHNIQUE: Axial computed tomography images were obtained through the head/brain without intravenous contrast. Radiation dose: Total exam DLP = 759.99 mGy-cm. This CT exam was performed using one or more of the following dose reduction techniques: Automated exposure control, adjustment of the mA and/or kV according to patient size, and/or use of iterative reconstruction technique. FINDINGS: HEMORRHAGE: No intracranial hemorrhage. BRAIN: Good corticomedullary differentiation is seen. Reiterated diffuse cerebral atrophy and chronic microangiopathy. No suspicious extra-axial fluid collection is identified and the midline brain anatomy appears grossly nonfocal as imaged. No mass effect identified. VENTRICLES: Unremarkable. No hydrocephalus. CALVARIUM: Unremarkable. PARANASAL SINUSES: Unremarkable as visualized. No significant inflammatory changes. MASTOID AIR CELLS: Unremarkable as visualized. No inflammatory changes. OTHER FINDINGS: None. IMPRESSION: Age-appropriate age related neuro degenerative findings without acute intracranial changes at this time. [facility]. Assessment & Plan (1) Acute gastroenteritis Status: Acute (2) Hypertensive urgency Status: Acute Priority: High (3) Abdominal pain in female Status: Acute Priority: Medium (4) Dizziness Status: Acute Priority: Medium (5) Type 2 diabetes mellitus with hyperglycemia Status: Acute Priority: Medium - Assessment and Plan (Free Text) Plan: Admit to med-surge IVF Continue to Monitor Pain Medication PRN
[2018-08-13] MEDS: Insulin Lispro (humaLOG) 100 Units/ml Inj SC SCH ×4 (08:35→21:51)
[2018-08-13] MEDS ORDERED: METOPROLOL SUCCINATE 50 MG PO SCH (09:00)
[2018-08-13] MEDS: Pantoprazole 40 mg EC Tab PO SCH (10:05)
--- NOTE | 2018-08-13 11:29 | CT ---
Date of service: 08/13/2018 PROCEDURE: CT Abdomen and Pelvis with contrast HISTORY: abd pain/diarrhea COMPARISON: Abdomen and pelvis CT with contrast 09/20/2017. TECHNIQUE: Contrast dose: Omnipaque 300, 90 cc Radiation dose: Total exam DLP = 529.44 mGy-cm. This CT exam was performed using one or more of the following dose reduction techniques: Automated exposure control, adjustment of the mA and/or kV according to patient size, and/or use of iterative reconstruction technique. FINDINGS: LOWER THORAX: Limited ground-glass opacity scattered at the bilateral bases without definite alveolitis or pleural effusion bilaterally. Small hiatal hernia reiterated as well as cardiomegaly. No pulmonary vascular congestion. LIVER: Hepatic steatosis reiterated without interval change. GALLBLADDER AND BILE DUCTS: Cholelithiasis again identified within a minimally distended gallbladder, less distended than previously shown. No definite acute interval findings. PANCREAS: Unremarkable. No gross lesion or ductal dilatation. SPLEEN: Unremarkable. ADRENALS: Unremarkable. No mass. KIDNEYS AND URETERS: Multiple bilateral renal lucencies are identified with a tiny exophytic cyst under 1 cm at the upper pole right kidney once again evident. 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 Intermediate density lucencies are stable at the lower pole right kidney measuring 1.5 cm greatest dimension once again at the upper pole left kidney measuring 2.0 cm once again. No obstructive uropathy bilaterally or definite radiodense urolithiasis. No interval perinephric reaction appreciated. VASCULATURE: Nonaneurysmal abdominal aortic calcific atherosclerotic changes are identified. BOWEL: Evaluation of the gastrointestinal tract is limited due to the lack of oral contrast administration. No obstruction. No gross mural thickening. Limited sigmoid diverticulosis without diverticulitis once again evident. APPENDIX: Normal appendix. PERITONEUM: Unremarkable. No free fluid. No free air. LYMPH NODES: Unremarkable. No enlarged lymph nodes. BLADDER: Distended but thin walled urinary bladder unremarkable appearing otherwise. REPRODUCTIVE: Limited fibroid uterine changes. BONES: No acute fracture. OTHER FINDINGS: None. IMPRESSION: 1. No definite acute abdominal or pelvic findings as discussed above. 2. Hepatic steatosis reiterated. 3. Nonacute sigmoid diverticulosis. 4. Other lesser findings as discussed above. Concordant preliminary report from [facility], 08/13/2018.
--- NOTE | 2018-08-13 11:34 | CT ---
Date of service: 08/13/2018 PROCEDURE: CT HEAD WITHOUT CONTRAST. HISTORY: dizziness COMPARISON: Noncontrast head CT 09/20/2017. TECHNIQUE: Axial computed tomography images were obtained through the head/brain without intravenous contrast. Radiation dose: Total exam DLP = 759.99 mGy-cm. This CT exam was performed using one or more of the following dose reduction techniques: Automated exposure control, adjustment of the mA and/or kV according to patient size, and/or use of iterative reconstruction technique. FINDINGS: HEMORRHAGE: No intracranial hemorrhage. BRAIN: Good corticomedullary differentiation is seen. Reiterated diffuse cerebral atrophy and chronic microangiopathy. No suspicious extra-axial fluid collection is identified and the midline brain anatomy appears grossly nonfocal as imaged. No mass effect identified. VENTRICLES: Unremarkable. No hydrocephalus. CALVARIUM: Unremarkable. PARANASAL SINUSES: Unremarkable as visualized. No significant inflammatory changes. MASTOID AIR CELLS: Unremarkable as visualized. No inflammatory changes. OTHER FINDINGS: None. IMPRESSION: Age-appropriate age related neuro degenerative findings without acute intracranial changes at this time. [facility] report [facility], 08/13/2018.
--- NOTE | 2018-08-13 13:44 | CARD ---
APPROVED REPORT Date of service: 08/13/2018 EKG Measurement Heart [id number] <Conclusion> Normal sinus rhythm Nonspecific ST abnormality Prolonged QT Abnormal ECG
[2018-08-14] MEDS: Insulin Lispro (humaLOG) 100 Units/ml Inj SC SCH ×4 (07:51→22:15)
[2018-08-14] MEDS: Pantoprazole 40 mg EC Tab PO SCH (08:50)
[2018-08-14] MEDS ORDERED: Enalaprilat 2.5 MG/2 ML IVP STA (18:31)
[2018-08-14] MEDS ORDERED: Sucralfate 1 gm/10 ml Oral Susp UD PO STA (20:22)
[2018-08-14] MEDS ORDERED: Alum-Mag Hydrox-Simethicone Susp (30 mL) PO ONE ×2 (20:49→21:51)
[2018-08-14] MEDS: Morphine 4 MG/ML VIAL IVP ONE ×2 (20:50→21:16)
--- NOTE | 2018-08-14 21:09 | CP.PCM.PN ---
Subjective - Date & Time of Evaluation Date of Evaluation: 08/14/18 Time of Evaluation: 20:15 - Subjective Subjective: sensitiity tothe Seen and examined at the bed side. BP better controlled. Blood Culture growing G+Ve Cocci in Clusters, and patient advised to stay. Denies fever or chills. Patient was started on Vancomycin Empirically, pending identification of the organism and sensitivity to the antibiotics. Objective - Vital Signs/Intake and Output Vital Signs (last 24 hours): Temp Pulse Resp BP Pulse Ox 99 F 83 20 225/73 H 97 08/14/18 16:45 08/14/18 16:45 08/14/18 16:45 08/14/18 16:45 08/14/18 16:45 - Medications Medications: Current Medications Atorvastatin Calcium (Lipitor) 20 mg PO DAILY [facility] Last Admin: 08/14/18 08:51 Dose: 20 mg Dextrose (Dextrose 50% Inj) 0 ml IV STAT PRN; Protocol PRN Reason: Hypoglycemia Protocol Dextrose (Glutose 15) 0 gm PO ONCE PRN; Protocol PRN Reason: Hypoglycemia Protocol Glucagon (Glucagen Diagnostic Kit) 0 mg IM STAT PRN; Protocol PRN Reason: Hypoglycemia Protocol Home Med (Metoprolol Succinate [Kapspargo Sprinkle]) 50 mg PO DAILY [facility] Vancomycin HCl 1 gm/ Sodium (Chloride) 250 mls @ 166.667 mls/hr IVPB Q12 [facility]; Protocol Last Admin: 08/14/18 16:50 Dose: 166.667 mls/hr Insulin Human Lispro (Humalog) 0 units SC ACHS [facility]; Protocol Last Admin: 08/14/18 16:52 Dose: 1 u Meclizine HCl (Antivert) 12.5 mg PO DAILY [facility] Last Admin: 08/14/18 08:50 Dose: 12.5 mg Metformin HCl (Glucophage) 1,000 mg PO BID [facility] Last Admin: 08/14/18 17:05 Dose: 1,000 mg Pantoprazole Sodium (Protonix Ec Tab) 40 mg PO DAILY [facility] Last Admin: 08/14/18 08:50 Dose: 40 mg Sucralfate (Carafate Oral Susp) 1 gm PO ACHS [facility] - Labs Labs: 08/13/18 00:52 08/13/18 00:52 Assessment and Plan (1) Acute gastroenteritis Status: Resolved (2) Hypertensive urgency Status: Resolved (3) Abdominal pain in female Status: Resolved (4) Dizziness Status: Acute (5) Type 2 diabetes mellitus with hyperglycemia Status: Chronic (6) Bacteremia Status: Acute - Assessment and Plan (Free Text) Plan: IVF IV Vancomycin Monitor Renal Function Continue Current Care
[2018-08-14] MEDS ORDERED: Atrop/Hyos/Scop/PhenoB Elixir PO ONE (21:51)
[2018-08-14] MEDS ORDERED: Sucralfate 1 gm/10 ml Oral Susp UD PO SCH (22:00)
[2018-08-14] MEDS: Sucralfate 1 gm/10 ml Oral Susp UD PO SCH ×2 (22:13→22:14)
[2018-08-14] MEDS: Metoprolol Succinate 50 mg XL Tab PO SCH (22:14)
--- NOTE | 2018-08-15 00:16 | PCM.RRT ---
<Radha Nguyễn - Last Filed: 08/15/18 00:36> MINUTE CLERK Nurse Assessment - Situation MINUTE CLERK Responder Arrival Time: 22:42 MINUTE CLERK Reason for Call: Hypertension MINUTE CLERK Called By: RN - Respiratory Oxygen Delivery Method: Nasal Cannula - Neurological Status (Select all that apply): Alert, Responsive, Oriented - Respiratory Oxygen Delivery Method: Nasal Cannula @L/min (2L) - Constitutional Appears: In Acute Distress - Respiratory Exam Respiratory Exam: Clear to Ausculation Bilateral - Cardiovascular Exam Cardiovascular Exam: Tachycardia, REGULAR RHYTHM, +S1, +S4 - GI/Abdominal Exam GI & Abdominal Exam: Soft, Tenderness, Normal Bowel Sounds. absent: Guarding, Rigid - Neurological Exam Neurological Exam: Alert, Oriented x3 - Extremities Exam Extremities Exam: absent: Calf Tenderness, Pedal Edema, Tenderness Plan - Assessment of Findings&Treatment Plan S:Gudelia Whitney is 73 y/o female w/ pmhx of hypertension and diabetes who was admitted for gasteroentritis. MINUTE CLERK was called at 8:42 PM dye to elevated blood pressure. Patient reports burning epigastric pain, nausea and two episodes of vomiting 15 minutes prior to MINUTE CLERK. Patient denies headache, chest pain, SOB, visual changes, numbness, tingling. O: Vitals at beginning of MINUTE CLERK: BP 204/77, HR 84, O2 Sat 98% on 2L O2 NC PE: Gen: patient is in acute distress, alert, oriented, and responsive Heart: tachycardic, S1 S2 present Lungs: clear to auscultation bilaterally Abd: Soft, and tender. Normal bowel sounds present. No rigidity, no guarding. Ext: No calf tenderness, no edema A: Gudelia Whitney is 73 y/o female w/ pmhx of hypertension and diabetes who was admitted for gasteroentriti c/o abdominal pain, diarrhea, and found to have elevated BP. P: Zofran 4mg IVPx1 Morphine 4mg IV x1 Protonix 40mg IVP x1 Maalox 30mL x2 EKG: Sinus Tachycardia Repeat vitals 9:15 pm: BP 185/76, HR 81, SpO2 100%, T98.4 Hydralazine 40mg IV x1 Patient continued to complain of abdominal pain and nausea Reglan 10mg IVP x1, 10mL PO x1, and Lidocain 2% 15mL PO were given Vitals at end of MINUTE CLERK 9:35 pm: BP 109/57, HR 78, RR 23 Patient stabilized and transferred to telemetry for close monitoring <Kevon Gold - Last Filed: 08/16/18 07:04> MINUTE CLERK Nurse Assessment - Vital Signs Vital Signs: Rapid Response Vital Sign Blood Pressure 180/90 Pulse Rate 82 Respiratory Rate 15 Temperature 97.5 F Oxygen Saturation 100 - Vital Signs at end of MINUTE CLERK Vital Signs at end of MINUTE CLERK: Rapid Response End Vital Sign Blood Pressure 109/57 Pulse Rate 81 Respiratory Rate 20 O2 Sat by Pulse Oximetry 100 Attending/Attestation - Attestation I have personally seen and examined this patient.: Yes I have fully participated in the care of the patient.: Yes I have reviewed all pertinent clinical information, including history, physical exam and plan: Yes Notes (Text): 08/16/18 06:50 I saw and examined this patient with Dr Nguyễn. I agree with the assessment and plan outlined which represent my direct input. This is a patient who developed a severe epigastric pain with blood pressure increasing to level of Hypertensive emergency state. The epigastric pain was relieved with the cocktail including , Viscus lidocaine and Maalox. Pantoprazole was continued. Hydralazine was given for the Blood pressure control. The patient was transferred to Telemetry for cardiac monitoring. Critical care time was 40minutes Kevon Gold MD 08/16/18 07:03
[2018-08-15 06:13] LABS: ALB/GLOB RATIO 1.2 (1.0-2.1); ALBUMIN 3.9 g/dL (3.5-5.0); CALCIUM 8.8 mg/dL (8.4-10.2)
[2018-08-15] MEDS: Metoprolol Succinate 50 mg XL Tab PO SCH (08:54)
[2018-08-15] MEDS: Insulin Lispro (humaLOG) 100 Units/ml Inj SC SCH ×4 (08:55→21:34)
[2018-08-15] MEDS: Pantoprazole 40 mg EC Tab PO SCH (08:57)
[2018-08-15] MEDS: Sucralfate 1 gm/10 ml Oral Susp UD PO SCH ×4 (10:21→21:00)
--- NOTE | 2018-08-15 10:48 | CARD ---
APPROVED REPORT Date of service: 08/14/2018 EKG Measurement Heart [id number] <Conclusion> Normal sinus rhythm Nonspecific ST changes Abnormal ECG
--- NOTE | 2018-08-15 23:59 | CP.PCM.PN ---
Subjective - Date & Time of Evaluation Date of Evaluation: 08/15/18 Time of Evaluation: 17:10 - Subjective Subjective: Seen and examined at the bed side. +Bacteremia. No fever or chills Objective - Vital Signs/Intake and Output Vital Signs (last 24 hours): Temp Pulse Resp BP Pulse Ox 99.5 F 72 20 141/57 L 98 08/15/18 20:13 08/15/18 20:13 08/15/18 20:13 08/15/18 20:13 08/15/18 20:13 Intake and Output: 08/15/18 08/16/18 18:59 06:59 Intake Total 900 Balance 900 - Medications Medications: Current Medications Atorvastatin Calcium (Lipitor) 20 mg PO DAILY [facility] Last Admin: 08/15/18 08:55 Dose: 20 mg Dextrose (Dextrose 50% Inj) 0 ml IV STAT PRN; Protocol PRN Reason: Hypoglycemia Protocol Dextrose (Glutose 15) 0 gm PO ONCE PRN; Protocol PRN Reason: Hypoglycemia Protocol Glucagon (Glucagen Diagnostic Kit) 0 mg IM STAT PRN; Protocol PRN Reason: Hypoglycemia Protocol Vancomycin HCl 1 gm/ Sodium (Chloride) 250 mls @ 166.667 mls/hr IVPB Q12 [facility]; Protocol Last Admin: 08/15/18 21:02 Dose: 166.667 mls/hr Insulin Human Lispro (Humalog) 0 units SC ACHS [facility]; Protocol Last Admin: 08/15/18 21:34 Dose: 2 u Meclizine HCl (Antivert) 12.5 mg PO DAILY [facility] Last Admin: 08/15/18 08:55 Dose: 12.5 mg Metformin HCl (Glucophage) 1,000 mg PO BID [facility] Last Admin: 08/15/18 16:58 Dose: 1,000 mg Metoprolol Succinate (Toprol Xl) 50 mg PO DAILY [facility] Last Admin: 08/15/18 08:54 Dose: 50 mg Pantoprazole Sodium (Protonix Ec Tab) 40 mg PO DAILY [facility] Last Admin: 08/15/18 08:57 Dose: 40 mg Sucralfate (Carafate Oral Susp) 1 gm PO ACHS [facility] Last Admin: 08/15/18 21:00 Dose: 1 gm - Labs Labs: 08/13/18 00:52 08/15/18 04:30 Assessment and Plan (1) Acute gastroenteritis Status: Resolved (2) Hypertensive urgency Status: Resolved (3) Abdominal pain in female Status: Resolved (4) Dizziness Status: Acute (5) Type 2 diabetes mellitus with hyperglycemia Status: Chronic (6) Bacteremia Status: Acute - Assessment and Plan (Free Text) Plan: Continue Current Care
[2018-08-16 05:46] LABS: CALCIUM 8.6 mg/dL (8.4-10.2)
[2018-08-16 05:50] LABS: HEMOGLOBIN 11.6 g/dL (12.0-16.0); MEAN CELL VOLUME 95.6 fl (81.0-99.0); MEAN CORPUSCULAR HEMOGLOBIN 31.6 pg (27.0-31.0); RBC 3.66 Mil/uL (3.80-5.20); RED CELL DISTRIBUTION WIDTH 13.4 % (11.5-14.5); WHITE BLOOD COUNT 10.7 K/uL (4.8-10.8)
[2018-08-16] MEDS: Sucralfate 1 gm/10 ml Oral Susp UD PO SCH ×4 (06:45→21:14)
[2018-08-16] MEDS: Insulin Lispro (humaLOG) 100 Units/ml Inj SC SCH ×4 (06:45→22:19)
[2018-08-16] MEDS ORDERED: Enoxaparin 40 mg Syringe SC SCH (09:00)
[2018-08-16] MEDS: Pantoprazole 40 mg EC Tab PO SCH (09:34)
[2018-08-16] MEDS: Metoprolol Succinate 50 mg XL Tab PO SCH ×2 (09:35→21:14)
[2018-08-16] MEDS: Enoxaparin 80 mg Syringe SC SCH (12:09)
[2018-08-16] MEDS ORDERED: Morphine 4 MG/ML VIAL IVP PRN (12:15)
--- NOTE | 2018-08-16 12:27 | CP.PCM.PCO ---
Assessment & Plan - Assessment and Plan (Free Text) Assessment: patient seen and examined ; c/o epigastric pain, intermittent, described as gnawing in character w/o any chest pain, dizziness or palpitations c/o diarrhea x 2 episodes pt. on PPI, Carafate Check Stat troponin, EKG, Echo, Abd US Following labs; notified by RN regarding elevated troponin, EKG with ST changes; notified; Cardiology consult w/ - notified Lovenox 70 mg stat, plavix, asa, then cont. daily Echo, O2 2L, MSO4 prn cont. BB , no JOSSY 2nd ARF Will cont. to monitor
--- NOTE | 2018-08-16 15:22 | CP.PCM.CON ---
History of Present Illness - History of Present Illness History of Present Illness: Asked to see pt by dr Gore. Pt has been complaining of epigastric pain with nausea and vomiting for 4 days. Troponins were drawn and noted to be positive. Ekg shows mild enhancement of lateral lead t wave abnormality. Pt started on asa, lovenox, MSO4 and BBs with reduction of sxs. denies prior episodes. she denies cad hx of hx of chf. EF normal by echo. no radiation of abd pain. no dizziness, lh, sob, palp. Review of Systems - Constitutional Constitutional: As Per HPI. absent: Anorexia, Chills, Daytime Sleepiness, Excessive Sweating, Fatigue, Fever, Frequent Falls, Headache, Increased Appetite, Lethargy, Malaise, Night Sweats, Snoring, Sleep Apnea, Weight Gain, Weight Loss, Weakness, Other - EENT Eyes: As Per HPI. absent: Blind Spots, Blurred Vision, Change in Vision, Decreased Night Vision, Diplopia, Discharge, Dry Eye, Exophthalmos, Floaters, Irritation, Itchy Eyes, Loss of Peripheral Vision, Pain, Photophobia, Requires Corrective Lenses, Sees Flashes, Spots in Vision, Tunnel Vision, Other Visual Di sturbances, Loss of Vision, Other Ears: As Per HPI. absent: Decreased Hearing, Ear Discharge, Ear Pain, Tinnitus, Abnormal Hearing, Disequilibrium, Dizziness, Other Nose/Mouth/Throat: As Per HPI. absent: Epistaxis, Nasal Congestion, Nasal Discharge, Nasal Obstruction, Nasal Trauma, Nose Pain, Post Nasal Drip, Sinus Pain, Sinus Pressure, Bleeding Gums, Change in Voice, Dental Pain, Dry Mouth, Dysphagia, Halitosis, Hoarsness, Lip Swelling, Mouth Lesions, Mouth Pain, Odynophagia, Sore Throat, Throat Swelling, Tongue Swelling, Facial Pain, Neck P ain, Neck Mass, Other - Breasts Breasts: As Per HPI. absent: Change in Shape, Mass, Pain, Nipple Discharge, Nipple Inversion, Skin Changes, Swelling, Other - Cardiovascular Cardiovascular: As Per HPI. absent: Acrocyanosis, Chest Pain, Chest Pain at Rest, Chest Pain with Activity, Claudication, Diaphoresis, Dyspnea, Dyspnea on Exertion, Edema, Irregular Heart Rhythm, Pain Radiating to Arm/Neck/Jaw, Leg Edema, Leg Ulcers, Lightheadedness, Orthopnea, Palpitations, Paroxysmal Nocturnal Dyspnea, Pedal Edema, Radiating Pain, Rapid Heart Rate, Slow Heart Rate, Syncope, Other - Respiratory Respiratory: As Per HPI. absent: Cough, Dyspnea, Hemoptysis, Dyspnea on Exertion, Wheezing, Snoring, Stridor, Pain on Inspiration, Chest Congestion, Excessive Mucous Production, Change in Mucous Color, Pain with Coughing, Other - Gastrointestinal Gastrointestinal: As Per HPI, Abdominal Pain, Nausea, Vomiting. absent: Belching, Bloating, Change in Bowel Habits, Change in Stool Character, Coffee Ground Emesis, Constipation, Cramping, Diarrhea, Dyspepsia, Dysphagia, Early Satiety, Excessive Flatus, Fecal Incontinence, Heartburn, Hematemesis, Hemato chezia, Loose Stools, Melena, Odynophagia, Temesmus, Other - Genitourinary Genitourinary: As Per HPI. absent: Change in Urinary Stream, Difficulty Urinating, Dysuria, Flank Pain, Hematuria, Pyuria, Nocturia, Urinary Incontinence, Urinary Frequency, Urinary Hesitance, Urinary Urgency, Voiding Freq/Small Amts, Freq UTI, Hx Renal/Bladder Calculi, Hx /Renal Surgery, Bladder Distension, Other - Reproductive: Female Reproductive:Female: As Per HPI. absent: Amenorrhea, Amenorrhea/ Control, Currently Menstual, Cycle <21 Days, Cycle >35 Days, Cycle Variable, Menses 1-7 Days, Menses >/= 8 Days, Menses Variable, Cycle > 4 Weeks Between, No Menses for 6 Months, Heavy Menses, Light Menses, Normal Menses, Spotting Between Cycles, S/P Hysterectomy, Menopausal, Post Menopausal, Premenarche, Abnormal Vaginal Bleeding, Dysmenorrhea, Dyspareunia, Genital Lesions, Genital Pruritis, Pelvic Pain, Prolapse Symptoms, Sexual Dysfunction, Vaginal Discharge, Vaginal Dryness, Vaginal Odor, Vaginal Pruritis, Other - Menstruation Menstruation: As Per HPI. absent: Amenorrhea, Amenorrhea/ Control, Currently Menstual, Cycle <21 Days, Cycle >35 Days, Cycle Variable, Menses 1-7 Days, Menses >/= 8 Days, Menses Variable, Cycle > 4 Weeks Between, No Menses for 6 Months, Heavy Menses, Light Menses, Normal Menses, Spotting Between Cycles, S/P Hysterectomy, Menopausal, Post Menopausal, Premenarche, Abnormal Vaginal Bleeding, Dysmenorrhea, Other - Musculoskeletal Musculoskeletal: As Per HPI. absent: Abnormal Gait, Arthralgias, Atrophy, Back Pain, Deformity, Joint Swelling, Limited Range of Motion, Loss of Height, Muscle Cramps, Muscle Weakness, Myalgias, Neck Pain, Numbness, Radiating Pain into Limb, Stiffness, Tingling, Other - Integumentary Integumentary: As Per HPI. absent: Acne, Alopecia, Bleeding Lesions, Change in Hair, Change in Nails, Change in Pigmentation, Changing Lesions, Dry Skin, Geremias thema, Furuncle, Hirsutism, Lesions, New Lesions, Non-Healing Lesions, Photosensitivity, Pruritus, Rash, Skin Pain, Skin Ulcer, Sores, Striae, Swelling, Unusual Bruising, Wounds, Jaundice, Other - Neurological Neurological: As Per HPI. absent: Abnormal Gait, Abnormal Hearing, Abnormal Movements, Abnormal Speech, Behavioral Changes, Burning Sensations, Confusion, Convulsions, Disequilibrium, Dizziness, Numbness, Focal Weakness, Frequent Falls, Headaches, Lack of Coordination, Loss of Vision, Memory Loss, Paresthesias, Radicular Pain, Restless Legs, Sensory Deficit, Syncope, Tingling, Tremor, Vertigo, Weakness, Other Visual Disturbances, Other - Psychiatric Psychiatric: As Per HPI. absent: Abnormal Sleep Pattern, Anhedonia, Anxiety, Auditory Hallucinations, Behavioral Changes, Change in Appetite, Change in Libi do, Confusion, Depression, Difficulty Concentrating, Hallucinations, Homicidal Ideation, Hopelessness, Irritability, Memory Loss, Mood Swings, Panic Attacks, Paranoia, Suicidal Ideation, Visual Hallucinations, Tactile Hallucinations, Other - Endocrine Endocrine: As Per HPI. absent: Change in Body Appearance, Change in Libido, Cold Intolorance, Deepening of Voice, Excessive Sweating, Fatigue, Flushing, Heat Intolorance, Increase in Ring/Shoe/Hat Size, Palpitations, Polydipsia, Polyphagia, Polyuria, Other - Hematologic/Lymphatic Hematologic: As Per HPI. absent: Easy Bleeding, Easy Bruising, Lymphadenopathy, Other Past Patient History - Past Medical History & Family History Past Medical History?: Yes Past Family History: Reviewed and not pertinent - Past Social History Smoking Status: Never Smoked Chewing Tobacco Use: No Cigar Use: No Alcohol: None Drugs: Denies Home Situation {Lives}: With Family Domestic Violence: Negative - CARDIAC Hx Hypercholesterolemia: Yes Hx Hypertension: Yes - NEUROLOGICAL Hx Dizziness: Yes - HEENT Hx HEENT Problems: No - RENAL Hx Chronic Kidney Disease: No - ENDOCRINE/METABOLIC Hx Diabetes Mellitus Type 2: Yes - HEMATOLOGICAL/ONCOLOGICAL Hx Blood Disorders: No - INTEGUMENTARY Hx Dermatological Problems: No - MUSCULOSKELETAL/RHEUMATOLOGICAL Hx Falls: Yes - GASTROINTESTINAL Hx Gastritis: Yes - GENITOURINARY/GYNECOLOGICAL Hx Genitourinary Disorders: No - PSYCHIATRIC Hx Psychophysiologic Disorder: No Hx Substance Use: No - SURGICAL HISTORY Hx Surgeries: No - ANESTHESIA Hx Anesthesia: No Meds Allergies/Adverse Reactions: Allergies Allergy/AdvReac Type Severity Reaction Status Date / Time No Known Allergies Allergy Verified 09/20/17 08:57 - Medications Medications: Current Medications Amlodipine Besylate (Norvasc) 5 mg PO Q12 [facility] Aspirin (Aspirin) 325 mg PO DAILY [facility] Last Admin: 08/16/18 12:02 Dose: 325 mg Atorvastatin Calcium (Lipitor) 20 mg PO DAILY [facility] Last Admin: 08/16/18 09:34 Dose: 20 mg Dextrose (Dextrose 50% Inj) 0 ml IV STAT PRN; Protocol PRN Reason: Hypoglycemia Protocol Dextrose (Glutose 15) 0 gm PO ONCE PRN; Protocol PRN Reason: Hypoglycemia Protocol Enoxaparin Sodium (Lovenox) 70 mg SC DAILY [facility]; Protocol Last Admin: 08/16/18 12:09 Dose: 70 mg Glucagon (Glucagen Diagnostic Kit) 0 mg IM STAT PRN; Protocol PRN Reason: Hypoglycemia Protocol Vancomycin HCl 1 gm/ Sodium (Chloride) 250 mls @ 166.667 mls/hr IVPB Q12 [facility]; Protocol Last Admin: 08/15/18 21:02 Dose: 166.667 mls/hr Piperacillin Sod/Tazobactam (Sod 2.25 gm/ Sodium Chloride) 100 mls @ 100 mls/hr IVPB Q8 [facility]; Protocol Insulin Human Lispro (Humalog) 0 units SC ACHS [facility]; Protocol Last Admin: 08/16/18 06:45 Dose: 2 u Meclizine HCl (Antivert) 12.5 mg PO DAILY [facility] Last Admin: 08/16/18 09:33 Dose: 12.5 mg Metformin HCl (Glucophage) 1,000 mg PO BID [facility] Last Admin: 08/16/18 09:34 Dose: Not Given Metoprolol Succinate (Toprol Xl) 50 mg PO Q12 [facility] Morphine Sulfate (Morphine) 2 mg IVP Q6 PRN PRN Reason: Pain, moderate (4-7) Last Admin: 08/16/18 12:18 Dose: 2 mg Pantoprazole Sodium (Protonix Ec Tab) 40 mg PO DAILY [facility] Last Admin: 08/16/18 09:34 Dose: 40 mg Sucralfate (Carafate Oral Susp) 1 gm PO ACHS [facility] Last Admin: 08/16/18 12:03 Dose: 1 gm Physical Exam - Constitutional Appears: Non-toxic - Head Exam Head Exam: ATRAUMATIC, NORMAL INSPECTION, NORMOCEPHALIC - Eye Exam Eye Exam: EOMI, Normal appearance, PERRL. absent: Conjunctival injection, Nystagmus, Periorbital swelling, Periorbital tenderness, Scleral icterus Pupil Exam: NORMAL ACCOMODATION, PERRL. absent: Fixed, Irregular, Miosis, Mydriatic, Unequal - ENT Exam ENT Exam: Mucous Membranes Moist, Normal Exam. absent: Mucous Membranes Dry, Normal External Ear Exam, Normal Oropharynx, TM's Normal Bilaterally - Neck Exam Neck exam: Positive for: Normal Inspection. Negative for: Full Rom, Lymphadenopathy, Meningismus, Tenderness, Thyromegaly - Respiratory Exam Respiratory Exam: Clear to Auscultation Bilateral, NORMAL BREATHING PATTERN. absent: Accessory Muscle Use, Chest Wall Tenderness, Decreased Breath Sounds, Prolonged Expiratory Phase, Rales, Rhonchi, Wheezes, Respiratory Distress, Stridor - Cardiovascular Exam Cardiovascular Exam: REGULAR RHYTHM, +S1, +S2, Systolic Murmur. absent: Bradycardia, Tachycardia, Clicks, Diastolic murmur, Gallop, Irregular Rhythm, JVD, RRR, Rubs, +S4 - GI/Abdominal Exam GI & Abdominal Exam: Normal Bowel Sounds, Soft. absent: Bruit, Diminished Bowel Sounds, Distended, Firm, Guarding, Hernia, Hyperactive Bowel Sounds, Hypoactive Bowel Sounds, Mass, Organomegaly, Pulsatile Mass, Rebound, Rigid, Tenderness - Rectal Exam Rectal Exam: Deferred - Extremities Exam Extremities exam: Positive for: normal inspection, pedal pulses present. Negative for: calf tenderness, full ROM, joint swelling, normal capillary refill, pedal edema, tenderness - Back Exam Back exam: NORMAL INSPECTION. absent: CVA tenderness (L), CVA tenderness (R), FULL ROM, muscle spasm, paraspinal tenderness, rash noted, tenderness, vertebral tenderness - Neurological Exam Neurological exam: Alert, CN II-XII Intact, Normal Gait, Oriented x3, Reflexes Normal - Psychiatric Exam Psychiatric exam: Normal Affect, Normal Mood - Skin Skin Exam: Dry, Intact, Normal Color, Warm Results - Vital Signs Recent Vital Signs: Last Vital Signs Temp 98.1 F 08/16/18 12:43 Pulse 66 08/16/18 12:43 Resp 18 08/16/18 12:43 BP 166/63 H 08/16/18 12:43 Pulse Ox 95 08/16/18 12:43 - Labs Result Diagrams: 08/17/18 04:49 08/17/18 04:49 Labs: Laboratory Results - last 24 hr 08/15/18 08/15/18 08/15/18 10:46 15:31 21:07 WBC RBC Hgb Hct MCV MCH MCHC RDW Plt Count Sodium Potassium Chloride Carbon Dioxide Anion Gap BUN Creatinine Est GFR ( Amer) Est GFR (Non-Af Amer) POC Glucose (mg/dL) 241 H 208 H 209 H Random Glucose Lactic Acid Calcium Troponin I Vancomycin Trough 08/16/18 08/16/18 08/16/18 04:20 04:20 04:20 WBC 10.7 RBC 3.66 L Hgb 11.6 L Hct 35.0 MCV 95.6 D MCH 31.6 H MCHC 33.0 RDW 13.4 Plt Count 271 Sodium 139 Potassium 3.9 Chloride 107 Carbon Dioxide 22 Anion Gap 14 BUN 26 H Creatinine 1.5 H Est GFR ( Amer) 41 Est GFR (Non-Af Amer) 34 POC Glucose (mg/dL) Random Glucose 211 H Lactic Acid Calcium 8.6 Troponin I Vancomycin Trough 30.6 H 08/16/18 08/16/18 08/16/18 05:04 10:10 10:10 WBC RBC Hgb Hct MCV MCH MCHC RDW Plt Count Sodium Potassium Chloride Carbon Dioxide Anion Gap BUN Creatinine Est GFR ( Amer) Est GFR (Non-Af Amer) POC Glucose (mg/dL) 214 H Random Glucose Lactic Acid 2.4 H Calcium Troponin I 3.9800 H* Vancomycin Trough 08/16/18 11:17 WBC RBC Hgb Hct MCV MCH MCHC RDW Plt Count Sodium Potassium Chloride Carbon Dioxide Anion Gap BUN Creatinine Est GFR ( Amer) Est GFR (Non-Af Amer) POC Glucose (mg/dL) 259 H Random Glucose Lactic Acid Calcium Troponin I Vancomycin Trough - EKG Data EKG Interpreted by: Myself EKG shows normal: Sinus rhythm, ST-T waves Assessment & Plan (1) NSTEMI (non-ST elevated myocardial infarction) Status: Acute (2) Anginal equivalent Status: Acute (3) Nausea & vomiting Status: Acute (4) Abnormal EKG Status: Acute (5) Type 2 diabetes mellitus with hyperglycemia Status: Acute (6) Abdominal pain in female Status: Acute (7) Hypertension Status: Acute - Assessment and Plan (Free Text) Plan: PTS EPIGASTRIC PAIN IS HER ANGINAL EQUIVALENT. PT WILL NEED CARDIAC CATH. UNFORTUNATELY PT HAS AN ACUTE INFECTION. WILL PLAN ON CATH NEXT WEEK ONCE RESOLVED. FOR NOW ASA, HEPARIN, BB'S. 45 MIN TOTAL CARE TIME. D/W SUPERVISING BAILIFF, PCP AND PT. TREND TROP. EKG AND ECHO IMAGES PERSONALLY REVIEWED.
--- NOTE | 2018-08-16 18:51 | CARD ---
APPROVED REPORT Date of service: 08/16/2018 EXAM: Two-dimensional and M-mode echocardiogram with Doppler and color Doppler. Other Information Quality : GoodRhythm : NSR INDICATION Infection: 2D DIMENSIONS IVSd0.61 (0.7-1.1cm)LVDd4.74 (3.9-5.9cm) LVOT Diameter2.06 (1.8-2.4cm)PWd0.72 (0.7-1.1cm) IVSs1.37 (0.8-1.2cm)LVDs2.95 (2.5-4.0cm) FS (%) 37.7 %PWs1.15 (0.8-1.2cm) M-Mode DIMENSIONS Left Atrium (MM)5.76 (2.5-4.0cm)IVSd0.79 (0.7-1.1cm) Aortic Root2.82 (2.2-3.7cm)LVDd6.44 (4.0-5.6cm) Aortic Cusp Exc.1.71 (1.5-2.0cm)PWd1.35 (0.7-1.1cm) IVSs1.18 cmFS (%) 28 % LVDs4.65 (2.0-3.8cm)PWs1.35 cm Aortic Valve AoV Peak Lvybfdzz695.3cm/sAoV VTI28.4cmAO Peak GR.6mmHg LVOT Peak Ncdrbjbc28.8cm/sLVOT VTI22.45cmAO Mean GR.3mmHg STUART (VMAX)1.86oi8SBX (VTI)1.51cm2 Mitral Valve MV E Yynxgepy914.6cm/sMV DECEL [id number] A Efhpjuij52.7cm/s MV KQH96bdB/A ratio1.2MVA (PHT)4.52cm2 TDI Lateral E' Peak V9.04cm/sMedial E' Peak V7.90cm/sE/Lateral E'12.7 E/Medial E'14.5 Pulmonary Valve PV Peak Oczunldb48.2cm/s Tricuspid Valve TR Peak Kszlcxqz230xd/sRAP YEBXSMCJ20ymFoAW Peak Gr.60mmHg HMXF52mmRg LEFT VENTRICLE The left ventricle is normal size. There is normal left ventricular wall thickness. The left ventricular systolic function is normal. The estimated ejection fraction is 60-65% No regional wall motion abnormalities noted.. Transmitral Doppler flow pattern is Grade II-pseudonormal filling dynamics. No left ventricle thrombus noted on this study. There is no ventricular septal defect visualized. There is no left ventricular aneurysm. There is no mass noted in the left ventricle. RIGHT VENTRICLE The right ventricle is normal size. There is normal right ventricular wall thickness. The right ventricular systolic function is normal. ATRIA The left atrium is mild to moderately dilated. The right atrium size is normal. The interatrial septum is intact with no evidence for an atrial septal defect. AORTIC VALVE The aortic valve is normal in structure. No aortic regurgitation is present. There is no aortic valvular stenosis. There is no aortic valvular vegetation. MITRAL VALVE The mitral valve is normal in structure. There is no evidence of mitral valve prolapse. There is no mitral valve stenosis. There is mild mitral valve regurgitation noted. TRICUSPID VALVE The tricuspid valve is normal in structure. There is moderate tricuspid valve regurgitation noted. RVSP is calculated at 65 mm Hg. There is no tricuspid valve prolapse or vegetation. There is no tricuspid valve stenosis. PULMONIC VALVE The pulmonary valve is normal in structure. There is no pulmonic valvular regurgitation. There is no pulmonic valvular stenosis. GREAT VESSELS The aortic root is normal in size. The ascending aorta is normal in size. The pulmonary artery is normal. The IVC is normal in size and collapses >50% with inspiration. PERICARDIAL EFFUSION There is no pericardial effusion. There is no pleural effusion. <Conclusion> The estimated ejection fraction is 60-65% Transmitral Doppler flow pattern is Grade II-pseudonormal filling dynamics. The left atrium is mild to moderately dilated. There is mild mitral valve regurgitation noted. There is moderate tricuspid valve regurgitation noted. RVSP is calculated at 65 mm Hg. No evidence of endocarditis. Correlate clinically.
--- NOTE | 2018-08-16 19:00 | CARD ---
APPROVED REPORT Date of service: 08/16/2018 EKG Measurement Heart [id number] <Conclusion> Normal sinus rhythm Nonspecific ST abnormality Abnormal ECG
[2018-08-17 05:23] LABS: HEMOGLOBIN 11.2 g/dL (12.0-16.0); MEAN CORPUSCULAR HEMOGLOBIN 30.3 pg (27.0-31.0); MEAN CORPUSCULAR HGB CONC 32.6 g/dL (33.0-37.0); RBC 3.69 Mil/uL (3.80-5.20); RED CELL DISTRIBUTION WIDTH 13.2 % (11.5-14.5); WHITE BLOOD COUNT 10.1 K/uL (4.8-10.8)
[2018-08-17 05:44] LABS: CALCIUM 8.7 mg/dL (8.4-10.2)
[2018-08-17] MEDS: Insulin Lispro (humaLOG) 100 Units/ml Inj SC SCH ×4 (06:50→23:02)
[2018-08-17] MEDS: Metoprolol Succinate 50 mg XL Tab PO SCH ×2 (09:32→21:40)
[2018-08-17] MEDS: Pantoprazole 40 mg EC Tab PO SCH (09:34)
[2018-08-17] MEDS: Enoxaparin 80 mg Syringe SC SCH (09:34)
[2018-08-17] MEDS: Sucralfate 1 gm/10 ml Oral Susp UD PO SCH ×4 (09:37→21:50)
--- NOTE | 2018-08-17 10:44 | US ---
Date of service: 08/17/2018 HISTORY: abd pain, epigastric pain COMPARISON: None. TECHNIQUE: Grayscale imaging was performed of the right upper quadrant of the abdomen. FINDINGS: LIVER: Measures 20.0 cm in length. There is diffuse increased echogenicity of the liver parenchyma. No mass. No intrahepatic bile duct dilatation. GALLBLADDER: There are multiple mobile gallstones. There is gallbladder distention, no wall thickening or pericholecystic fluid. The sonographic Hoover's sign is positive. COMMON BILE DUCT: Measures 5.1 mm. No stones. No dilatation. PANCREAS: Unremarkable as visualized. No mass. No ductal dilatation. RIGHT KIDNEY: Measures 11.3 cm in length. Normal echogenicity. No calculus, mass, or hydronephrosis. AORTA: No aneurysmal dilatation. IVC: Unremarkable. OTHER FINDINGS: None . IMPRESSION: Distended gallbladder, cholelithiasis and positive sonographic Hoover's sign. Please follow-up clinically for acute calculus cholecystitis. Moderate hepatomegaly. Diffuse increased echogenicity in the liver may reflect hepatic steatosis however parenchymal infectious/ inflammatory etiologies cannot be entirely excluded. Clinical and laboratory correlation is advised.
--- NOTE | 2018-08-17 12:06 | CP.PCM.CON ---
History of Present Illness - History of Present Illness History of Present Illness: this patient however is 73 years of age female I was called to see her for renal consultations because of abnormal kidney function. This patient presented with some epigastric pain diarrhea and troponin was positive suggestive of coronary artery disease and cardiology suggested to do cardiac catheterization however patient has a positive blood culture and she has been treated with vancomycin. Which has been stopped today and noted BUN/creatinine and rising. review of system as noted below And social history as noted in the presentation of the history and physical Review of Systems - Constitutional Constitutional: absent: Anorexia, Chills - Breasts Breasts: absent: As Per HPI - Cardiovascular Cardiovascular: As Per HPI. absent: Chest Pain, Dyspnea, Leg Edema - Respiratory Respiratory: absent: Hemoptysis, Chest Congestion - Gastrointestinal Gastrointestinal: absent: Abdominal Pain, Coffee Ground Emesis - Genitourinary Genitourinary: absent: Nocturia - Musculoskeletal Musculoskeletal: absent: Abnormal Gait, Back Pain - Neurological Neurological: As Per HPI. absent: Confusion, Focal Weakness, Loss of Vision - Endocrine Endocrine: Fatigue - Hematologic/Lymphatic Hematologic: absent: Easy Bleeding Past Patient History - Past Medical History & Family History Past Medical History?: Yes Past Family History: Reviewed and not pertinent - Past Social History Smoking Status: Never Smoked Chewing Tobacco Use: No Cigar Use: No Alcohol: None Drugs: Denies Home Situation {Lives}: With Family Domestic Violence: Negative - CARDIAC Hx Hypercholesterolemia: Yes Hx Hypertension: Yes - NEUROLOGICAL Hx Dizziness: Yes - HEENT Hx HEENT Problems: No - RENAL Hx Chronic Kidney Disease: No - ENDOCRINE/METABOLIC Hx Diabetes Mellitus Type 2: Yes - HEMATOLOGICAL/ONCOLOGICAL Hx Blood Disorders: No - INTEGUMENTARY Hx Dermatological Problems: No - MUSCULOSKELETAL/RHEUMATOLOGICAL Hx Falls: Yes - GASTROINTESTINAL Hx Gastritis: Yes - GENITOURINARY/GYNECOLOGICAL Hx Genitourinary Disorders: No - PSYCHIATRIC Hx Psychophysiologic Disorder: No Hx Substance Use: No - SURGICAL HISTORY Hx Surgeries: No - ANESTHESIA Hx Anesthesia: No Meds Allergies/Adverse Reactions: Allergies Allergy/AdvReac Type Severity Reaction Status Date / Time No Known Allergies Allergy Verified 09/20/17 08:57 - Medications Medications: Current Medications Amlodipine Besylate (Norvasc) 5 mg PO Q12 [facility] Last Admin: 08/17/18 09:34 Dose: 5 mg Aspirin (Aspirin) 325 mg PO DAILY [facility] Last Admin: 08/17/18 09:32 Dose: 325 mg Atorvastatin Calcium (Lipitor) 20 mg PO DAILY [facility] Last Admin: 08/17/18 09:32 Dose: 20 mg Dextrose (Dextrose 50% Inj) 0 ml IV STAT PRN; Protocol PRN Reason: Hypoglycemia Protocol Dextrose (Glutose 15) 0 gm PO ONCE PRN; Protocol PRN Reason: Hypoglycemia Protocol Enoxaparin Sodium (Lovenox) 70 mg SC DAILY [facility]; Protocol Last Admin: 08/17/18 09:34 Dose: 70 mg Glucagon (Glucagen Diagnostic Kit) 0 mg IM STAT PRN; Protocol PRN Reason: Hypoglycemia Protocol Vancomycin HCl 1 gm/ Sodium (Chloride) 250 mls @ 166.667 mls/hr IVPB Q12 [facility]; Protocol Last Admin: 08/15/18 21:02 Dose: 166.667 mls/hr Piperacillin Sod/Tazobactam (Sod 2.25 gm/ Sodium Chloride) 100 mls @ 100 mls/hr IVPB Q8 [facility]; Protocol Last Admin: 08/17/18 09:37 Dose: 100 mls/hr Insulin Human Lispro (Humalog) 0 units SC ACHS [facility]; Protocol Last Admin: 08/17/18 06:50 Dose: Not Given Meclizine HCl (Antivert) 12.5 mg PO DAILY [facility] Last Admin: 08/17/18 09:33 Dose: 12.5 mg Metformin HCl (Glucophage) 1,000 mg PO BID [facility] Last Admin: 08/16/18 09:34 Dose: Not Given Metoprolol Succinate (Toprol Xl) 50 mg PO Q12 [facility] Last Admin: 08/17/18 09:32 Dose: 50 mg Morphine Sulfate (Morphine) 2 mg IVP Q6 PRN PRN Reason: Pain, moderate (4-7) Last Admin: 08/16/18 12:18 Dose: 2 mg Pantoprazole Sodium (Protonix Ec Tab) 40 mg PO DAILY [facility] Last Admin: 08/17/18 09:34 Dose: 40 mg Sucralfate (Carafate Oral Susp) 1 gm PO ACHS [facility] Last Admin: 08/17/18 09:37 Dose: 1 gm Physical Exam - Constitutional Appears: No Acute Distress - Eye Exam Eye Exam: absent: Conjunctival injection - ENT Exam ENT Exam: absent: Mucous Membranes Moist - Neck Exam Neck exam: Negative for: Lymphadenopathy - Respiratory Exam Respiratory Exam: NORMAL BREATHING PATTERN. absent: Chest Wall Tenderness - Cardiovascular Exam Cardiovascular Exam: absent: Gallop, JVD, Rubs - GI/Abdominal Exam GI & Abdominal Exam: Normal Bowel Sounds. absent: Guarding - Extremities Exam Extremities exam: Negative for: calf tenderness, pedal edema - Back Exam Back exam: absent: CVA tenderness (L), CVA tenderness (R) - Neurological Exam Neurological exam: Alert Results - Vital Signs Recent Vital Signs: Last Vital Signs Temp 98.7 F 08/17/18 07:48 Pulse 63 08/17/18 09:34 Resp 20 08/17/18 07:48 BP 179/70 H 08/17/18 09:34 Pulse Ox 96 08/17/18 07:48 - Labs Result Diagrams: 08/17/18 04:49 08/17/18 04:49 Labs: Laboratory Results - last 24 hr 08/16/18 08/16/18 08/16/18 15:52 17:00 21:39 WBC RBC Hgb Hct MCV MCH MCHC RDW Plt Count Sodium Potassium Chloride Carbon Dioxide Anion Gap BUN Creatinine Est GFR ( Amer) Est GFR (Non-Af Amer) POC Glucose (mg/dL) 197 H 279 H Random Glucose Calcium Troponin I 3.2600 H* Vancomycin Trough 08/17/18 08/17/18 08/17/18 04:49 04:49 04:56 WBC 10.1 RBC 3.69 L Hgb 11.2 L Hct 34.3 MCV 93.0 D MCH 30.3 MCHC 32.6 L RDW 13.2 Plt Count 247 Sodium 138 Potassium 4.3 Chloride 104 Carbon Dioxide 24 Anion Gap 14 BUN 29 H Creatinine 1.7 H Est GFR ( Amer) 35 Est GFR (Non-Af Amer) 29 POC Glucose (mg/dL) 196 H Random Glucose 203 H Calcium 8.7 Troponin I Vancomycin Trough 08/17/18 08/17/18 08/17/18 08:48 08:48 10:52 WBC RBC Hgb Hct MCV MCH MCHC RDW Plt Count Sodium Potassium Chloride Carbon Dioxide Anion Gap BUN Creatinine Est GFR ( Amer) Est GFR (Non-Af Amer) POC Glucose (mg/dL) 275 H Random Glucose Calcium Troponin I 2.4600 H* Vancomycin Trough 15.6 H Assessment & Plan (1) [place] (acute kidney injury) Assessment and Plan: rule out acute kidney injury perhaps from multifactorial and the patient has positive blood cultures sepsis? And patient also was receiving vancomycin with serum level was elevated in addition patient has positive troponin as noted by the cardiology Recommendation Discontinue vancomycin Spot urine for sodium osmolality and creatinine Keep monitoring kidney function Adjust antibiotics and medication as per renal dose As far as cardiac cath at this point on hold. Status: Acute (2) Acute gastroenteritis Status: Acute (3) Anginal equivalent Status: Acute
--- NOTE | 2018-08-17 12:53 | CP.PCM.CON ---
<Mendy Munguia - Last Filed: 08/17/18 14:04> History of Present Illness - History of Present Illness History of Present Illness: General Surgery consult note for Dr. Whitfield Patient is a 73 yr old female with PMH HTN, DM, gastritis, gallstones initially admitted 08/13 for gastroenteritis with epigastric pain, n/v and diarrhea. Patient was found to have bacteremia with cx positive for coagulase negative staph. At that time CT scan showed gallstones, minimal gallbladder distention no wall thickening and no pericholecystic fluid. 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 Abdominal US yesterday showed mobile stones, gallbladder distention and positive saxena sign but no wall thickening or pericholecystic fluid. Upon interview patient endorses continuing epigastric pain but denies any ongoing nausea or vomiting. She states that her pain has been well controlled during her stay and otherwise denies MEEK, CP, SOB and extremity pain or weakness. PMH: HTN, DM, gastritis, cholelithiasis PSH: denies All: nkda Review of Systems - Review of Systems All systems: reviewed and no additional remarkable complaints except (as per HPI) Past Patient History - Past Medical History & Family History Past Medical History?: Yes Past Family History: Reviewed and not pertinent - Past Social History Smoking Status: Never Smoked Chewing Tobacco Use: No Cigar Use: No Alcohol: None Drugs: Denies Home Situation {Lives}: With Family Domestic Violence: Negative - CARDIAC Hx Hypercholesterolemia: Yes Hx Hypertension: Yes - NEUROLOGICAL Hx Dizziness: Yes - HEENT Hx HEENT Problems: No - RENAL Hx Chronic Kidney Disease: No - ENDOCRINE/METABOLIC Hx Diabetes Mellitus Type 2: Yes - HEMATOLOGICAL/ONCOLOGICAL Hx Blood Disorders: No - INTEGUMENTARY Hx Dermatological Problems: No - MUSCULOSKELETAL/RHEUMATOLOGICAL Hx Falls: Yes - GASTROINTESTINAL Hx Gastritis: Yes - GENITOURINARY/GYNECOLOGICAL Hx Genitourinary Disorders: No - PSYCHIATRIC Hx Psychophysiologic Disorder: No Hx Substance Use: No - SURGICAL HISTORY Hx Surgeries: No - ANESTHESIA Hx Anesthesia: No Meds Allergies/Adverse Reactions: Allergies Allergy/AdvReac Type Severity Reaction Status Date / Time No Known Allergies Allergy Verified 09/20/17 08:57 - Medications Medications: Current Medications Amlodipine Besylate (Norvasc) 5 mg PO Q12 [facility] Last Admin: 08/17/18 09:34 Dose: 5 mg Aspirin (Aspirin) 325 mg PO DAILY [facility] Last Admin: 08/17/18 09:32 Dose: 325 mg Atorvastatin Calcium (Lipitor) 20 mg PO DAILY [facility] Last Admin: 08/17/18 09:32 Dose: 20 mg Dextrose (Dextrose 50% Inj) 0 ml IV STAT PRN; Protocol PRN Reason: Hypoglycemia Protocol Dextrose (Glutose 15) 0 gm PO ONCE PRN; Protocol PRN Reason: Hypoglycemia Protocol Enoxaparin Sodium (Lovenox) 70 mg SC DAILY [facility]; Protocol Last Admin: 08/17/18 09:34 Dose: 70 mg Glucagon (Glucagen Diagnostic Kit) 0 mg IM STAT PRN; Protocol PRN Reason: Hypoglycemia Protocol Vancomycin HCl 1 gm/ Sodium (Chloride) 250 mls @ 166.667 mls/hr IVPB Q12 [facility]; P rotocol Last Admin: 08/15/18 21:02 Dose: 166.667 mls/hr Piperacillin Sod/Tazobactam (Sod 2.25 gm/ Sodium Chloride) 100 mls @ 100 mls/hr IVPB Q8 [facility]; Protocol Last Admin: 08/17/18 09:37 Dose: 100 mls/hr Insulin Human Lispro (Humalog) 0 units SC [facility]; Protocol Last Admin: 08/17/18 06:50 Dose: Not Given Meclizine HCl (Antivert) 12.5 mg PO DAILY [facility] Last Admin: 08/17/18 09:33 Dose: 12.5 mg Metformin HCl (Glucophage) 1,000 mg PO BID [facility] Last Admin: 08/16/18 09:34 Dose: Not Given Metoprolol Succinate (Toprol Xl) 50 mg PO Q12 [facility] Last Admin: 08/17/18 09:32 Dose: 50 mg Morphine Sulfate (Morphine) 2 mg IVP Q6 PRN PRN Reason: Pain, moderate (4-7) Last Admin: 08/16/18 12:18 Dose: 2 mg Pantoprazole Sodium (Protonix Ec Tab) 40 mg PO DAILY [facility] Last Admin: 08/17/18 09:34 Dose: 40 mg Sucralfate (Carafate Oral Susp) 1 gm PO ACHS [facility] Last Admin: 08/17/18 09:37 Dose: 1 gm Physical Exam - Constitutional Appears: Non-toxic, No Acute Distress - Head Exam Head Exam: ATRAUMATIC, NORMOCEPHALIC - Eye Exam Eye Exam: EOMI - ENT Exam ENT Exam: Mucous Membranes Moist - Respiratory Exam Respiratory Exam: NORMAL BREATHING PATTERN - Cardiovascular Exam Cardiovascular Exam: REGULAR RHYTHM - GI/Abdominal Exam GI & Abdominal Exam: Guarding (epigastric), Soft, Tenderness (epigastric). absent: Distended Additional comments: negative saxena's sign - Extremities Exam Extremities exam: Positive for: pedal pulses present. Negative for: calf tenderness, pedal edema - Neurological Exam Neurological exam: Alert, Oriented x3 - Psychiatric Exam Psychiatric exam: Normal Affect, Normal Mood - Skin Skin Exam: Dry, Intact, Normal Color, Warm Results - Vital Signs Recent Vital Signs: Last Vital Signs Temp 98.7 F 08/17/18 07:48 Pulse 63 08/17/18 09:34 Resp 20 08/17/18 07:48 BP 179/70 H 08/17/18 09:34 Pulse Ox 96 08/17/18 07:48 - Labs Result Diagrams: 08/17/18 04:49 08/17/18 13:49 Labs: Laboratory Results - last 24 hr 08/16/18 08/16/18 08/16/18 15:52 17:00 21:39 WBC RBC Hgb Hct MCV MCH MCHC RDW Plt Count Sodium Potassium Chloride Carbon Dioxide Anion Gap BUN Creatinine Est GFR ( Amer) Est GFR (Non-Af Amer) POC Glucose (mg/dL) 197 H 279 H Random Glucose Calcium Troponin I 3.2600 H* Vancomycin Trough 08/17/18 08/17/18 08/17/18 04:49 04:49 04:56 WBC 10.1 RBC 3.69 L Hgb 11.2 L Hct 34.3 MCV 93.0 D MCH 30.3 MCHC 32.6 L RDW 13.2 Plt Count 247 Sodium 138 Potassium 4.3 Chloride 104 Carbon Dioxide 24 Anion Gap 14 BUN 29 H Creatinine 1.7 H Est GFR ( Amer) 35 Est GFR (Non-Af Amer) 29 POC Glucose (mg/dL) 196 H Random Glucose 203 H Calcium 8.7 Troponin I Vancomycin Trough 08/17/18 08/17/18 08/17/18 08:48 08:48 10:52 WBC RBC Hgb Hct MCV MCH MCHC RDW Plt Count Sodium Potassium Chloride Carbon Dioxide Anion Gap BUN Creatinine Est GFR ( Amer) Est GFR (Non-Af Amer) POC Glucose (mg/dL) 275 H Random Glucose Calcium Troponin I 2.4600 H* Vancomycin Trough 15.6 H Assessment & Plan - Assessment and Plan (Free Text) Assessment: 73 yr old female with cholelithiasis possible cholecystitis Plan: repeat labs HIDA scan poor operative candidate possible PCT depending on HIDA and lab results d/w Dr. Roseann Munguia, PGY 1 - Date & Time Date: 08/17/18 Time: 12:00 <Carlos Whitfield - Last Filed: 08/17/18 20:55> History of Present Illness - History of Present Illness History of Present Illness: Patient was seen and examined at the bedside. Agree with resident's note above. Patient states that she takes one bottle of Advil per week for different types of pains. Meds - Medications Medications: Current Medications Amlodipine Besylate (Norvasc) 5 mg PO Q12 [facility] Last Admin: 08/17/18 09:34 Dose: 5 mg Aspirin (Aspirin) 325 mg PO DAILY [facility] Last Admin: 08/17/18 09:32 Dose: 325 mg Atorvastatin Calcium (Lipitor) 20 mg PO DAILY [facility] Last Admin: 08/17/18 09:32 Dose: 20 mg Dextrose (Dextrose 50% Inj) 0 ml IV STAT PRN; Protocol PRN Reason: Hypoglycemia Protocol Dextrose (Glutose 15) 0 gm PO ONCE PRN; Protocol PRN Reason: Hypoglycemia Protocol Enoxaparin Sodium (Lovenox) 70 mg SC DAILY [facility]; Protocol Last Admin: 08/17/18 09:34 Dose: 70 mg Glucagon (Glucagen Diagnostic Kit) 0 mg IM STAT PRN; Protocol PRN Reason: Hypoglycemia Protocol Piperacillin Sod/Tazobactam (Sod 2.25 gm/ Sodium Chloride) 100 mls @ 100 mls/hr IVPB Q8 [facility]; Protocol Last Admin: 08/17/18 18:18 Dose: 100 mls/hr Insulin Human Lispro (Humalog) 0 units SC ACHS [facility]; Protocol Last Admin: 08/17/18 18:18 Dose: 1 u Meclizine HCl (Antivert) 12.5 mg PO DAILY [facility] Last Admin: 08/17/18 09:33 Dose: 12.5 mg Metformin HCl (Glucophage) 1,000 mg PO BID [facility] Last Admin: 08/16/18 09:34 Dose: Not Given Metoprolol Succinate (Toprol Xl) 50 mg PO Q12 [facility] Last Admin: 08/17/18 09:32 Dose: 50 mg Morphine Sulfate (Morphine) 2 mg IVP Q6 PRN PRN Reason: Pain, moderate (4-7) Last Admin: 08/16/18 12:18 Dose: 2 mg Pantoprazole Sodium (Protonix Ec Tab) 40 mg PO DAILY [facility] Last Admin: 08/17/18 09:34 Dose: 40 mg Sucralfate (Carafate Oral Susp) 1 gm PO ACHS [facility] Last Admin: 08/17/18 18:18 Dose: 1 gm Physical Exam - GI/Abdominal Exam Additional comments: soft, epigastric and LUQ tenderness, ND, BS+, no rebound, no guarding Results - Vital Signs Recent Vital Signs: Last Vital Signs Temp 97.6 F 08/17/18 20:16 Pulse 70 08/17/18 20:16 Resp 18 08/17/18 20:16 BP 185/70 H 08/17/18 20:16 Pulse Ox 96 08/17/18 20:16 - Labs Result Diagrams: 08/17/18 04:49 08/17/18 13:49 Labs: Laboratory Results - last 24 hr 08/16/18 08/17/18 08/17/18 21:39 04:49 04:49 WBC 10.1 RBC 3.69 L Hgb 11.2 L Hct 34.3 MCV 93.0 D MCH 30.3 MCHC 32.6 L RDW 13.2 Plt Count 247 D-Dimer, Quantitative Sodium 138 Potassium 4.3 Chloride 104 Carbon Dioxide 24 Anion Gap 14 BUN 29 H Creatinine 1.7 H Est GFR ( Amer) 35 Est GFR (Non-Af Amer) 29 POC Glucose (mg/dL) 279 H Random Glucose 203 H Calcium 8.7 Phosphorus Magnesium Total Bilirubin AST ALT Alkaline Phosphatase Troponin I Total Protein Albumin Globulin Albumin/Globulin Ratio Vancomycin Trough 08/17/18 08/17/18 08/17/18 04:56 08:48 08:48 WBC RBC Hgb Hct MCV MCH MCHC RDW Plt Count D-Dimer, Quantitative Sodium Potassium Chloride Carbon Dioxide Anion Gap BUN Creatinine Est GFR ( Amer) Est GFR (Non-Af Amer) POC Glucose (mg/dL) 196 H Random Glucose Calcium Phosphorus Magnesium Total Bilirubin AST ALT Alkaline Phosphatase Troponin I 2.4600 H* Total Protein Albumin Globulin Albumin/Globulin Ratio Vancomycin Trough 15.6 H 08/17/18 08/17/18 08/17/18 10:52 13:05 13:49 WBC RBC Hgb Hct MCV MCH MCHC RDW Plt Count D-Dimer, Quantitative 1790 H Sodium 138 Potassium 4.0 Chloride 108 H Carbon Dioxide 20 L Anion Gap 14 BUN 28 H Creatinine 1.6 H Est GFR ( Amer) 38 Est GFR (Non-Af Amer) 31 POC Glucose (mg/dL) 275 H Random Glucose 211 H Calcium 9.2 Phosphorus 4.5 Magnesium 2.3 Total Bilirubin 1.0 AST 33 ALT 24 Alkaline Phosphatase 53 Troponin I Total Protein 7.3 Albumin 3.9 Globulin 3.4 Albumin/Globulin Ratio 1.2 Vancomycin Trough 08/17/18 16:29 WBC RBC Hgb Hct MCV MCH MCHC RDW Plt Count D-Dimer, Quantitative Sodium Potassium Chloride Carbon Dioxide Anion Gap BUN Creatinine Est GFR ( Amer) Est GFR (Non-Af Amer) POC Glucose (mg/dL) 190 H Random Glucose Calcium Phosphorus Magnesium Total Bilirubin AST ALT Alkaline Phosphatase Troponin I Total Protein Albumin Globulin Albumin/Globulin Ratio Vancomycin Trough - Imaging and Cardiology CT scan - abdomen Status: Image reviewed by me, Report reviewed by me
--- NOTE | 2018-08-17 13:49 | CP.PCM.CON ---
History of Present Illness - History of Present Illness History of Present Illness: Patient is a 73 yr old female admitted with abdominal pain and being evaluated surgically for possible acute cholecystitis ON IV antibiotics empirically denies fever + abd pain and nausea PMH: HTN, DM, gastritis, cholelithiasis PSH: denies All: nkda Review of Systems - Review of Systems All systems: reviewed and no additional remarkable complaints except - Constitutional Constitutional: Anorexia, Malaise. absent: Fever - EENT Eyes: absent: As Per HPI, Blind Spots, Blurred Vision, Change in Vision, Decreased Night Vision, Diplopia, Discharge, Dry Eye, Exophthalmos, Floaters, Irritation, Itchy Eyes, Loss of Peripheral Vision, Pain, Photophobia, Requires Corrective Lenses, Sees Flashes, Spots in Vision, Tunnel Vision, Other Visual Disturbances, Loss of Vision, Other Ears: absent: As Per HPI, Decreased Hearing, Ear Discharge, Ear Pain, Tinnitus, Abnormal Hearing, Disequilibrium, Dizziness, Other Nose/Mouth/Throat: absent: As Per HPI, Epistaxis, Nasal Congestion, Nasal Discharge, Nasal Obstruction, Nasal Trauma, Nose Pain, Post Nasal Drip, Sinus Pain, Sinus Pressure, Bleeding Gums, Change in Voice, Dental Pain, Dry Mouth, Dysphagia, Halitosis, Hoarsness, Lip Swelling, Mouth Lesions, Mouth Pain, Odynophagia, Sore Throat, Throat Swelling, Tongue Swelling, Facial Pain, Neck Pain, Neck Mass, Other - Breasts Breasts: absent: As Per HPI, Change in Shape, Mass, Pain, Nipple Discharge, Nipple Inversion, Skin Changes, Swelling, Other - Cardiovascular Cardiovascular: absent: As Per HPI, Acrocyanosis, Chest Pain, Chest Pain at Rest, Chest Pain with Activity, Claudication, Diaphoresis, Dyspnea, Dyspnea on Exertion, Edema, Irregular Heart Rhythm, Pain Radiating to Arm/Neck/Jaw, Leg Edema, Leg Ulcers, Lightheadedness, Orthopnea, Palpitations, Paroxysmal Nocturnal Dyspnea, Pedal Edema, Radiating Pain, Rapid Heart Rate, Slow Heart Rate, Syncope, Other - Respiratory Respiratory: absent: As Per HPI, Cough, Dyspnea, Hemoptysis, Dyspnea on Exertion, Wheezing, Snoring, Stridor, Pain on Inspiration, Chest Congestion, Excessive Mucous Production, Change in Mucous Color, Pain with Coughing, Other - Gastrointestinal Gastrointestinal: As Per HPI - Genitourinary Genitourinary: absent: As Per HPI, Change in Urinary Stream, Difficulty Urinating, Dysuria, Flank Pain, Hematuria, Pyuria, Nocturia, Urinary Incontinence, Urinary Frequency, Urinary Hesitance, Urinary Urgency, Voiding Freq/Small Amts, Freq UTI, Hx Renal/Bladder Calculi, Hx /Renal Surgery, Bladder Distension, Other - Reproductive: Female Reproductive:Female: absent: As Per HPI, Amenorrhea, Amenorrhea/ Control, Currently Menstual, Cycle <21 Days, Cycle >35 Days, Cycle Variable, Menses 1-7 Days, Menses >/= 8 Days, Menses Variable, Cycle > 4 Weeks Between, No Menses for 6 Months, Heavy Menses, Light Menses, Normal Menses, Spotting Between Cycles, S/P Hysterectomy, Menopausal, Post Menopausal, Premenarche, Abnormal Vaginal Bleeding, Dysmenorrhea, Dyspareunia, Genital Lesions, Genital Pruritis, Pelvic Pain, Prolapse Symptoms, Sexual Dysfunction, Vaginal Discharge, Vaginal Dryness, Vaginal Odor, Vaginal Pruritis, Other - Menstruation Menstruation: absent: As Per HPI, Amenorrhea, Amenorrhea/ Control, Currently Menstual, Cycle <21 Days, Cycle >35 Days, Cycle Variable, Menses 1-7 Days, Menses >/= 8 Days, Menses Variable, Cycle > 4 Weeks Between, No Menses for 6 Months, Heavy Menses, Light Menses, Normal Menses, Spotting Between Cycles, S/P Hysterectomy, Menopausal, Post Menopausal, Premenarche, Abnormal Vaginal Bleeding, Dysmenorrhea, Other - Musculoskeletal Musculoskeletal: absent: As Per HPI, Abnormal Gait, Arthralgias, Atrophy, Back Pain, Deformity, Joint Swelling, Limited Range of Motion, Loss of Height, Muscle Cramps, Muscle Weakness, Myalgias, Neck Pain, Numbness, Radiating Pain into Limb, Stiffness, Tingling, Other - Integumentary Integumentary: absent: As Per HPI, Acne, Alopecia, Bleeding Lesions, Change in Hair, Change in Nails, Change in Pigmentation, Changing Lesions, Dry Skin, Erythema, Furuncle, Hirsutism, Lesions, New Lesions, Non-Healing Lesions, Photosensitivity, Pruritus, Rash, Skin Pain, Skin Ulcer, Sores, Striae, Swelling, Unusual Bruising, Wounds, Jaundice, Other - Neurological Neurological: absent: As Per HPI, Abnormal Gait, Abnormal Hearing, Abnormal Movements, Abnormal Speech, Behavioral Changes, Burning Sensations, Confusion, Convulsions, Disequilibrium, Dizziness, Numbness, Focal Weakness, Frequent Falls, Headaches, Lack of Coordination, Loss of Vision, Memory Loss, Paresthesias, Radicular Pain, Restless Legs, Sensory Deficit, Syncope, Tingling, Tremor, Vertigo, Weakness, Other Visual Disturbances, Other - Psychiatric Psychiatric: absent: As Per HPI, Abnormal Sleep Pattern, Anhedonia, Anxiety, Auditory Hallucinations, Behavioral Changes, Change in Appetite, Change in Libido, Confusion, Depression, Difficulty Concentrating, Hallucinations, Homicidal Ideation, Hopelessness, Irritability, Memory Loss, Mood Swings, Panic Attacks, Paranoia, Suicidal Ideation, Visual Hallucinations, Tactile Hallucinations, Other - Endocrine Endocrine: absent: As Per HPI, Change in Body Appearance, Change in Libido, Cold Intolorance, Deepening of Voice, Excessive Sweating, Fatigue, Flushing, Heat Intolorance, Increase in Ring/Shoe/Hat Size, Palpitations, Polydipsia, Polyphagia, Polyuria, Other - Hematologic/Lymphatic Hematologic: absent: As Per HPI, Easy Bleeding, Easy Bruising, Lymphadenopathy, Other Past Patient History - Past Medical History & Family History Past Medical History?: Yes Past Family History: Reviewed and not pertinent - Past Social History Smoking Status: Never Smoked Chewing Tobacco Use: No Cigar Use: No Alcohol: None Drugs: Denies Home Situation {Lives}: With Family Domestic Violence: Negative - CARDIAC Hx Hypercholesterolemia: Yes Hx Hypertension: Yes - NEUROLOGICAL Hx Dizziness: Yes - HEENT Hx HEENT Problems: No - RENAL Hx Chronic Kidney Disease: No - ENDOCRINE/METABOLIC Hx Diabetes Mellitus Type 2: Yes - HEMATOLOGICAL/ONCOLOGICAL Hx Blood Disorders: No - INTEGUMENTARY Hx Dermatological Problems: No - MUSCULOSKELETAL/RHEUMATOLOGICAL Hx Falls: Yes - GASTROINTESTINAL Hx Gastritis: Yes - GENITOURINARY/GYNECOLOGICAL Hx Genitourinary Disorders: No - PSYCHIATRIC Hx Psychophysiologic Disorder: No Hx Substance Use: No - SURGICAL HISTORY Hx Surgeries: No - ANESTHESIA Hx Anesthesia: No Meds Allergies/Adverse Reactions: Allergies Allergy/AdvReac Type Severity Reaction Status Date / Time No Known Allergies Allergy Verified 09/20/17 08:57 - Medications Medications: Current Medications Amlodipine Besylate (Norvasc) 5 mg PO Q12 [facility] Last Admin: 08/17/18 09:34 Dose: 5 mg Aspirin (Aspirin) 325 mg PO DAILY [facility] Last Admin: 08/17/18 09:32 Dose: 325 mg Atorvastatin Calcium (Lipitor) 20 mg PO DAILY [facility] Last Admin: 08/17/18 09:32 Dose: 20 mg Dextrose (Dextrose 50% Inj) 0 ml IV STAT PRN; Protocol PRN Reason: Hypoglycemia Protocol Dextrose (Glutose 15) 0 gm PO ONCE PRN; Protocol PRN Reason: Hypoglycemia Protocol Enoxaparin Sodium (Lovenox) 70 mg SC DAILY [facility]; Protocol Last Admin: 08/17/18 09:34 Dose: 70 mg Glucagon (Glucagen Diagnostic Kit) 0 mg IM STAT PRN; Protocol PRN Reason: Hypoglycemia Protocol Vancomycin HCl 1 gm/ Sodium (Chloride) 250 mls @ 166.667 mls/hr IVPB Q12 [facility]; Protocol Last Admin: 08/15/18 21:02 Dose: 166.667 mls/hr Piperacillin Sod/Tazobactam (Sod 2.25 gm/ Sodium Chloride) 100 mls @ 100 mls/hr IVPB Q8 [facility]; Protocol Last Admin: 08/17/18 09:37 Dose: 100 mls/hr Insulin Human Lispro (Humalog) 0 units SC ACHS [facility]; Protocol Last Admin: 08/17/18 13:18 Dose: 3 u Meclizine HCl (Antivert) 12.5 mg PO DAILY [facility] Last Admin: 08/17/18 09:33 Dose: 12.5 mg Metformin HCl (Glucophage) 1,000 mg PO BID [facility] Last Admin: 08/16/18 09:34 Dose: Not Given Metoprolol Succinate (Toprol Xl) 50 mg PO Q12 [facility] Last Admin: 08/17/18 09:32 Dose: 50 mg Morphine Sulfate (Morphine) 2 mg IVP Q6 PRN PRN Reason: Pain, moderate (4-7) Last Admin: 08/16/18 12:18 Dose: 2 mg Pantoprazole Sodium (Protonix Ec Tab) 40 mg PO DAILY [facility] Last Admin: 08/17/18 09:34 Dose: 40 mg Sucralfate (Carafate Oral Susp) 1 gm PO ACHS [facility] Last Admin: 08/17/18 13:15 Dose: 1 gm Physical Exam - Constitutional Appears: Non-toxic, Chronically Ill - Head Exam Head Exam: ATRAUMATIC, NORMAL INSPECTION, NORMOCEPHALIC - Eye Exam Eye Exam: PERRL. absent: Scleral icterus - ENT Exam ENT Exam: Mucous Membranes Dry, Normal External Ear Exam - Neck Exam Neck exam: Negative for: Lymphadenopathy - Respiratory Exam Respiratory Exam: Decreased Breath Sounds, Clear to Auscultation Bilateral - Cardiovascular Exam Cardiovascular Exam: REGULAR RHYTHM, +S1, +S2 - GI/Abdominal Exam GI & Abdominal Exam: Diminished Bowel Sounds, Guarding, Soft, Tenderness. absent: Pulsatile Mass, Rebound, Rigid - Rectal Exam Rectal Exam: Deferred - Exam Exam: NORMAL INSPECTION - Extremities Exam Extremities exam: Positive for: pedal pulses present. Negative for: calf tenderness, pedal edema, tenderness - Back Exam Back exam: absent: CVA tenderness (L), CVA tenderness (R), paraspinal tenderness - Neurological Exam Neurological exam: Alert, CN II-XII Intact, Oriented x3, Reflexes Normal - Psychiatric Exam Psychiatric exam: Depressed - Skin Skin Exam: Dry Results - Vital Signs Recent Vital Signs: Last Vital Signs Temp 98.9 F 08/17/18 13:10 Pulse 66 08/17/18 13:10 Resp 20 08/17/18 13:10 BP 188/79 H 08/17/18 13:10 Pulse Ox 93 L 08/17/18 13:10 - Labs Result Diagrams: 08/17/18 04:49 08/17/18 04:49 Labs: Laboratory Results - last 24 hr 08/16/18 08/16/18 08/16/18 15:52 17:00 21:39 WBC RBC Hgb Hct MCV MCH MCHC RDW Plt Count D-Dimer, Quantitative Sodium Potassium Chloride Carbon Dioxide Anion Gap BUN Creatinine Est GFR ( Amer) Est GFR (Non-Af Amer) POC Glucose (mg/dL) 197 H 279 H Random Glucose Calcium Troponin I 3.2600 H* Vancomycin Trough 08/17/18 08/17/18 08/17/18 04:49 04:49 04:56 WBC 10.1 RBC 3.69 L Hgb 11.2 L Hct 34.3 MCV 93.0 D MCH 30.3 MCHC 32.6 L RDW 13.2 Plt Count 247 D-Dimer, Quantitative Sodium 138 Potassium 4.3 Chloride 104 Carbon Dioxide 24 Anion Gap 14 BUN 29 H Creatinine 1.7 H Est GFR ( Amer) 35 Est GFR (Non-Af Amer) 29 POC Glucose (mg/dL) 196 H Random Glucose 203 H Calcium 8.7 Troponin I Vancomycin Trough 08/17/18 08/17/18 08/17/18 08:48 08:48 10:52 WBC RBC Hgb Hct MCV MCH MCHC RDW Plt Count D-Dimer, Quantitative Sodium Potassium Chloride Carbon Dioxide Anion Gap BUN Creatinine Est GFR ( Amer) Est GFR (Non-Af Amer) POC Glucose (mg/dL) 275 H Random Glucose Calcium Troponin I 2.4600 H* Vancomycin Trough 15.6 H 08/17/18 13:05 WBC RBC Hgb Hct MCV MCH MCHC RDW Plt Count D-Dimer, Quantitative 1790 H Sodium Potassium Chloride Carbon Dioxide Anion Gap BUN Creatinine Est GFR ( Amer) Est GFR (Non-Af Amer) POC Glucose (mg/dL) Random Glucose Calcium Troponin I Vancomycin Trough Assessment & Plan (1) Dehydration Status: Acute (2) NSTEMI (non-ST elevated myocardial infarction) Status: Acute (3) Nausea & vomiting Status: Acute (4) Type 2 diabetes mellitus with hyperglycemia Status: Acute (5) Abdominal pain Status: Acute (6) Gallbladder disease Status: Acute - Assessment and Plan (Free Text) Assessment: elderly diabetic with acute AL, [place] and possible cholecystitis for HIDA scan possible cholecystotomy before cardiac cath cont IV antibiotics
[2018-08-17 14:02] LABS: ALB/GLOB RATIO 1.2 (1.0-2.1); ALBUMIN 3.9 g/dL (3.5-5.0); CALCIUM 9.2 mg/dL (8.4-10.2)
--- NOTE | 2018-08-17 14:32 | CP.PCM.CON ---
History of Present Illness - History of Present Illness History of Present Illness: General Surgery/[place] Agree with resident note. Additionally pt reports having these types of abdominal pain (epigastric and LUQ) for the past yr at times lasting 2 days, not associated with any specific foods. She reports when she takes her protonix at home she gets relief. The day her abdominal pain started was after eating s teamed seafood and steamed rice. 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 Pt is pending her HIDA scan today. She currently reports mild epigastric pain. No N/V. She reports her last emesis episode was 2 days ago. Afebrile Labs and vitals noted. (+) blood cultures, ID following. PE Gen: Pt laying in bed in NAD Skin: warm and dry. Cardio: s1s2 RRR Lungs: CTA bilaterally Abd: Soft, (+) mild epigastric tenderness, (+) voluntary guarding, (-) Hoover's (-) rebound Extr: (-) calf tenderness bilaterally,(-) edema A/P Abdominal pain, cholelithiasis R/O acute cholecystitis with HIDA scan HIDA scan ordered and pending. If HIDA positive, pt will need a cholecystostomy tube due to her current cardiac state. She will then eventually have a cholecystectomy post cardiac cath and clearance from cardio electively. Continue IV abx Continue pain meds prn Monitor labs. Past Patient History - Past Medical History & Family History Past Medical History?: Yes Past Family History: Reviewed and not pertinent - Past Social History Smoking Status: Never Smoked Chewing Tobacco Use: No Cigar Use: No Alcohol: None Drugs: Denies Home Situation {Lives}: With Family Domestic Violence: Negative - CARDIAC Hx Hypercholesterolemia: Yes Hx Hypertension: Yes - NEUROLOGICAL Hx Dizziness: Yes - HEENT Hx HEENT Problems: No - RENAL Hx Chronic Kidney Disease: No - ENDOCRINE/METABOLIC Hx Diabetes Mellitus Type 2: Yes - HEMATOLOGICAL/ONCOLOGICAL Hx Blood Disorders: No - INTEGUMENTARY Hx Dermatological Problems: No - MUSCULOSKELETAL/RHEUMATOLOGICAL Hx Falls: Yes - GASTROINTESTINAL Hx Gastritis: Yes - GENITOURINARY/GYNECOLOGICAL Hx Genitourinary Disorders: No - PSYCHIATRIC Hx Psychophysiologic Disorder: No Hx Substance Use: No - SURGICAL HISTORY Hx Surgeries: No - ANESTHESIA Hx Anesthesia: No Meds Allergies/Adverse Reactions: Allergies Allergy/AdvReac Type Severity Reaction Status Date / Time No Known Allergies Allergy Verified 09/20/17 08:57 - Medications Medications: Current Medications Amlodipine Besylate (Norvasc) 5 mg PO Q12 [facility] Last Admin: 08/17/18 09:34 Dose: 5 mg Aspirin (Aspirin) 325 mg PO DAILY [facility] Last Admin: 08/17/18 09:32 Dose: 325 mg Atorvastatin Calcium (Lipitor) 20 mg PO DAILY [facility] Last Admin: 08/17/18 09:32 Dose: 20 mg Dextrose (Dextrose 50% Inj) 0 ml IV STAT PRN; Protocol PRN Reason: Hypoglycemia Protocol Dextrose (Glutose 15) 0 gm PO ONCE PRN; Protocol PRN Reason: Hypoglycemia Protocol Enoxaparin Sodium (Lovenox) 70 mg SC DAILY [facility]; Protocol Last Admin: 08/17/18 09:34 Dose: 70 mg Glucagon (Glucagen Diagnostic Kit) 0 mg IM STAT PRN; Protocol PRN Reason: Hypoglycemia Protocol Piperacillin Sod/Tazobactam (Sod 2.25 gm/ Sodium Chloride) 100 mls @ 100 mls/hr IVPB Q8 [facility]; Protocol Last Admin: 08/17/18 09:37 Dose: 100 mls/hr Vancomycin HCl 1 gm/ Sodium (Chloride) 250 mls @ 166.667 mls/hr IVPB ONCE [facility]; Protocol Stop: 08/17/18 15:25 Insulin Human Lispro (Humalog) 0 units SC ACHS [facility]; Protocol Last Admin: 08/17/18 13:18 Dose: 3 u Meclizine HCl (Antivert) 12.5 mg PO DAILY [facility] Last Admin: 08/17/18 09:33 Dose: 12.5 mg Metformin HCl (Glucophage) 1,000 mg PO BID [facility] Last Admin: 08/16/18 09:34 Dose: Not Given Metoprolol Succinate (Toprol Xl) 50 mg PO Q12 [facility] Last Admin: 08/17/18 09:32 Dose: 50 mg Morphine Sulfate (Morphine) 2 mg IVP Q6 PRN PRN Reason: Pain, moderate (4-7) Last Admin: 08/16/18 12:18 Dose: 2 mg Pantoprazole Sodium (Protonix Ec Tab) 40 mg PO DAILY [facility] Last Admin: 08/17/18 09:34 Dose: 40 mg Sucralfate (Carafate Oral Susp) 1 gm PO ACHS [facility] Last Admin: 08/17/18 13:15 Dose: 1 gm Results - Vital Signs Recent Vital Signs: Last Vital Signs Temp 98.9 F 08/17/18 13:10 Pulse 66 08/17/18 13:10 Resp 20 08/17/18 13:10 BP 188/79 H 08/17/18 13:10 Pulse Ox 93 L 08/17/18 13:10 - Labs Result Diagrams: 08/17/18 04:49 08/17/18 13:49 Labs: Laboratory Results - last 24 hr 08/16/18 08/16/18 08/16/18 15:52 17:00 21:39 WBC RBC Hgb Hct MCV MCH MCHC RDW Plt Count D-Dimer, Quantitative Sodium Potassium Chloride Carbon Dioxide Anion Gap BUN Creatinine Est GFR ( Amer) Est GFR (Non-Af Amer) POC Glucose (mg/dL) 197 H 279 H Random Glucose Calcium Phosphorus Magnesium Total Bilirubin AST ALT Alkaline Phosphatase Troponin I 3.2600 H* Total Protein Albumin Globulin Albumin/Globulin Ratio Vancomycin Trough 08/17/18 08/17/18 08/17/18 04:49 04:49 04:56 WBC 10.1 RBC 3.69 L Hgb 11.2 L Hct 34.3 MCV 93.0 D MCH 30.3 MCHC 32.6 L RDW 13.2 Plt Count 247 D-Dimer, Quantitative Sodium 138 Potassium 4.3 Chloride 104 Carbon Dioxide 24 Anion Gap 14 BUN 29 H Creatinine 1.7 H Est GFR ( Amer) 35 Est GFR (Non-Af Amer) 29 POC Glucose (mg/dL) 196 H Random Glucose 203 H Calcium 8.7 Phosphorus Magnesium Total Bilirubin AST ALT Alkaline Phosphatase Troponin I Total Protein Albumin Globulin Albumin/Globulin Ratio Vancomycin Trough 08/17/18 08/17/18 08/17/18 08:48 08:48 10:52 WBC RBC Hgb Hct MCV MCH MCHC RDW Plt Count D-Dimer, Quantitative Sodium Potassium Chloride Carbon Dioxide Anion Gap BUN Creatinine Est GFR ( Amer) Est GFR (Non-Af Amer) POC Glucose (mg/dL) 275 H Random Glucose Calcium Phosphorus Magnesium Total Bilirubin AST ALT Alkaline Phosphatase Troponin I 2.4600 H* Total Protein Albumin Globulin Albumin/Globulin Ratio Vancomycin Trough 15.6 H 11/21/18 11/21/18 13:05 13:49 WBC RBC Hgb Hct MCV MCH MCHC RDW Plt Count D-Dimer, Quantitative 1790 H Sodium 138 Potassium 4.0 Chloride 108 H Carbon Dioxide 20 L Anion Gap 14 BUN 28 H Creatinine 1.6 H Est GFR ( Amer) 38 Est GFR (Non-Af Amer) 31 POC Glucose (mg/dL) Random Glucose 211 H Calcium 9.2 Phosphorus 4.5 Magnesium 2.3 Total Bilirubin 1.0 AST 33 ALT 24 Alkaline Phosphatase 53 Troponin I Total Protein 7.3 Albumin 3.9 Globulin 3.4 Albumin/Globulin Ratio 1.2 Vancomycin Trough
[2018-08-18 05:52] LABS: BASO % 0.4 % (0.0-2.0); EOS # 0.2 K/uL (0.0-0.7); EOS % 1.6 % (0.0-4.0); LYMPH # 1.7 K/uL (1.0-4.3); LYMPH % 17.8 % (20.0-40.0); MEAN CELL VOLUME 91.8 fl (81.0-99.0); MEAN CORPUSCULAR HEMOGLOBIN 31.1 pg (27.0-31.0); MEAN CORPUSCULAR HGB CONC 33.9 g/dL (33.0-37.0); MEAN PLATELET VOLUME 8.4 fl (7.2-11.7); MONO # 1.2 K/uL (0.0-0.8); MONO % 12.6 % (0.0-10.0); NEUT # 6.5 K/uL (1.8-7.0); NEUT % 67.6 % (50.0-75.0); RBC 3.53 Mil/uL (3.80-5.20); RED CELL DISTRIBUTION WIDTH 13.2 % (11.5-14.5); WHITE BLOOD COUNT 9.7 K/uL (4.8-10.8)
[2018-08-18 06:11] LABS: VANCOMYCIN RANDOM 10.2 ug/mL
[2018-08-18 06:30] LABS: ALB/GLOB RATIO 1.1 (1.0-2.1); ALBUMIN 3.5 g/dL (3.5-5.0); CALCIUM 8.7 mg/dL (8.4-10.2)
[2018-08-18] MEDS: Insulin Lispro (humaLOG) 100 Units/ml Inj SC SCH ×4 (07:00→22:06)
--- NOTE | 2018-08-18 08:05 | CP.PCM.PN ---
Subjective - Date & Time of Evaluation Date of Evaluation: 08/18/18 Time of Evaluation: 07:15 - Subjective Subjective: surgery progress note for Dr. Whitfield Patient seen and examined this am at bedside. She is feeling well denies abdominal pain, f/c, n/v. She is passing flatus and having BM. otherwise denies MEEK, CO, SOB and extremity pain and weakness. patient states her pain is much improved and almost completely gone. Objective - Vital Signs/Intake and Output Vital Signs (last 24 hours): Temp Pulse Resp BP Pulse Ox 98.3 F 55 L 20 170/61 H 98 08/18/18 07:42 08/18/18 07:42 08/18/18 07:42 08/18/18 07:42 08/18/18 07:42 - Medications Medications: Current Medications Amlodipine Besylate (Norvasc) 5 mg PO Q12 [facility] Last Admin: 08/17/18 21:41 Dose: 5 mg Aspirin (Aspirin) 325 mg PO DAILY [facility] Last Admin: 08/17/18 09:32 Dose: 325 mg Atorvastatin Calcium (Lipitor) 20 mg PO DAILY [facility] Last Admin: 08/17/18 09:32 Dose: 20 mg Dextrose (Dextrose 50% Inj) 0 ml IV STAT PRN; Protocol PRN Reason: Hypoglycemia Protocol Dextrose (Glutose 15) 0 gm PO ONCE PRN; Protocol PRN Reason: Hypoglycemia Protocol Enoxaparin Sodium (Lovenox) 70 mg SC DAILY [facility]; Protocol Last Admin: 08/17/18 09:34 Dose: 70 mg Glucagon (Glucagen Diagnostic Kit) 0 mg IM STAT PRN; Protocol PRN Reason: Hypoglycemia Protocol Piperacillin Sod/Tazobactam (Sod 2.25 gm/ Sodium Chloride) 100 mls @ 100 mls/hr IVPB Q8 [facility]; Protocol Last Admin: 08/18/18 01:31 Dose: 100 mls/hr Insulin Human Lispro (Humalog) 0 units SC ACHS [facility]; Protocol Last Admin: 08/17/18 23:02 Dose: Not Given Meclizine HCl (Antivert) 12.5 mg PO DAILY [facility] Last Admin: 08/17/18 09:33 Dose: 12.5 mg Metformin HCl (Glucophage) 1,000 mg PO BID [facility] Last Admin: 08/16/18 09:34 Dose: Not Given Metoprolol Succinate (Toprol Xl) 50 mg PO Q12 [facility] Last Admin: 08/17/18 21:40 Dose: 50 mg Morphine Sulfate (Morphine) 2 mg IVP Q6 PRN PRN Reason: Pain, moderate (4-7) Last Admin: 08/16/18 12:18 Dose: 2 mg Pantoprazole Sodium (Protonix Ec Tab) 40 mg PO DAILY [facility] Last Admin: 08/17/18 09:34 Dose: 40 mg Sucralfate (Carafate Oral Susp) 1 gm PO ACHS [facility] Last Admin: 08/17/18 21:50 Dose: 1 gm - Labs Labs: 08/18/18 05:00 08/18/18 05:00 - Constitutional Appears: Well, Non-toxic, No Acute Distress - Head Exam Head Exam: ATRAUMATIC, NORMOCEPHALIC - Eye Exam Eye Exam: EOMI - ENT Exam ENT Exam: Mucous Membranes Moist - Respiratory Exam Respiratory Exam: NORMAL BREATHING PATTERN - Cardiovascular Exam Cardiovascular Exam: REGULAR RHYTHM - GI/Abdominal Exam GI & Abdominal Exam: Soft, Tenderness (mild epigastric). absent: Distended, Guarding - Extremities Exam Extremities Exam: absent: Calf Tenderness, Pedal Edema - Neurological Exam Neurological Exam: Alert, Awake, Oriented x3 - Psychiatric Exam Psychiatric exam: Normal Affect, Normal Mood - Skin Skin Exam: Dry, Intact, Normal Color, Warm Assessment and Plan - Assessment and Plan (Free Text) Assessment: 73 yr old female with cholelithiasis/ possible cholecystitis, likely gastritis Plan: unlikely cholecystitis d/t normal bili and LFTs continue pain control as needed continue zofran PRN for nausea ADAT patient unable to get HIDA today due to Holiday will d/w Dr. Roseann Munguia, PGY 1
[2018-08-18 08:32] LABS: VANCOMYCIN TROUGH 10.2 ug/mL (5.0-10.0)
[2018-08-18] MEDS: Sucralfate 1 gm/10 ml Oral Susp UD PO SCH ×4 (09:00→22:07)
[2018-08-18] MEDS: Metoprolol Succinate 50 mg XL Tab PO SCH ×2 (09:25→22:05)
[2018-08-18] MEDS: Enoxaparin 80 mg Syringe SC SCH (09:26)
[2018-08-18] MEDS: Pantoprazole 40 mg EC Tab PO SCH (09:27)
--- NOTE | 2018-08-18 10:33 | CP.PCM.PN ---
Subjective - Date & Time of Evaluation Date of Evaluation: 08/18/18 Time of Evaluation: 10:26 - Subjective Subjective: General Surgery Pt seen and examined this AM. Pt eating soup and crackers without increased pain. Denies N/V. Pt is still pending HIDA scan. Afebrile. Labs and vitals noted. PE Gen: Pt laying in bed in NAD Skin: warm and dry Cardio: S1S2 RRR Lungs: CTA bilaterally Abd: Soft, epigastric and LUQ tenderness. Extr: (-) swelling or erythema of bilateral LEs A/P Cholelithiasis, abdominal pain, gastritis, r/o cholecystitis HIDA pending, as per RN... will be done tomorrow since closed today for Thanksgiving NPO after midnight Monitor labs Objective - Vital Signs/Intake and Output Vital Signs (last 24 hours): Temp Pulse Resp BP Pulse Ox 98.3 F 62 20 170/61 H 98 08/18/18 07:42 08/18/18 09:26 08/18/18 07:42 08/18/18 09:26 08/18/18 07:42 - Medications Medications: Current Medications Amlodipine Besylate (Norvasc) 5 mg PO Q12 [facility] Last Admin: 08/18/18 09:26 Dose: 5 mg Aspirin (Aspirin) 325 mg PO DAILY [facility] Last Admin: 08/18/18 09:53 Dose: 325 mg Atorvastatin Calcium (Lipitor) 20 mg PO DAILY [facility] Last Admin: 08/18/18 09:26 Dose: 20 mg Dextrose (Dextrose 50% Inj) 0 ml IV STAT PRN; Protocol PRN Reason: Hypoglycemia Protocol Dextrose (Glutose 15) 0 gm PO ONCE PRN; Protocol PRN Reason: Hypoglycemia Protocol Enoxaparin Sodium (Lovenox) 70 mg SC DAILY [facility]; Protocol Last Admin: 08/18/18 09:26 Dose: 70 mg Glucagon (Glucagen Diagnostic Kit) 0 mg IM STAT PRN; Protocol PRN Reason: Hypoglycemia Protocol Piperacillin Sod/Tazobactam (Sod 2.25 gm/ Sodium Chloride) 100 mls @ 100 mls/hr IVPB Q8 [facility]; Protocol Last Admin: 08/18/18 09:29 Dose: 100 mls/hr Insulin Human Lispro (Humalog) 0 units SC ACHS [facility]; Protocol Last Admin: 08/18/18 07:00 Dose: Not Given Meclizine HCl (Antivert) 12.5 mg PO DAILY [facility] Last Admin: 08/18/18 09:27 Dose: 12.5 mg Metformin HCl (Glucophage) 1,000 mg PO BID [facility] Last Admin: 08/16/18 09:34 Dose: Not Given Metoprolol Succinate (Toprol Xl) 50 mg PO Q12 [facility] Last Admin: 08/18/18 09:25 Dose: 50 mg Morphine Sulfate (Morphine) 2 mg IVP Q6 PRN PRN Reason: Pain, moderate (4-7) Last Admin: 08/16/18 12:18 Dose: 2 mg Pantoprazole Sodium (Protonix Ec Tab) 40 mg PO DAILY [facility] Last Admin: 08/18/18 09:27 Dose: 40 mg Sucralfate (Carafate Oral Susp) 1 gm PO ACHS [facility] Last Admin: 08/17/18 21:50 Dose: 1 gm - Labs Labs: 08/18/18 05:00 08/18/18 05:00
--- NOTE | 2018-08-18 15:37 | CP.PCM.PN ---
Subjective - Date & Time of Evaluation Date of Evaluation: 08/18/18 Time of Evaluation: 15:37 Objective - Vital Signs/Intake and Output Vital Signs (last 24 hours): Temp Pulse Resp BP Pulse Ox 98.2 F 61 20 172/61 H 97 08/18/18 11:50 08/18/18 11:50 08/18/18 11:50 08/18/18 11:50 08/18/18 11:50 - Medications Medications: Current Medications Amlodipine Besylate (Norvasc) 5 mg PO Q12 [facility] Last Admin: 08/18/18 09:26 Dose: 5 mg Aspirin (Aspirin) 325 mg PO DAILY [facility] Last Admin: 08/18/18 09:53 Dose: 325 mg Atorvastatin Calcium (Lipitor) 20 mg PO DAILY [facility] Last Admin: 08/18/18 09:26 Dose: 20 mg Dextrose (Dextrose 50% Inj) 0 ml IV STAT PRN; Protocol PRN Reason: Hypoglycemia Protocol Dextrose (Glutose 15) 0 gm PO ONCE PRN; Protocol PRN Reason: Hypoglycemia Protocol Enoxaparin Sodium (Lovenox) 70 mg SC DAILY [facility]; Protocol Last Admin: 08/18/18 09:26 Dose: 70 mg Glucagon (Glucagen Diagnostic Kit) 0 mg IM STAT PRN; Protocol PRN Reason: Hypoglycemia Protocol Piperacillin Sod/Tazobactam (Sod 2.25 gm/ Sodium Chloride) 100 mls @ 100 mls/hr IVPB Q8 [facility]; Protocol Last Admin: 08/18/18 09:29 Dose: 100 mls/hr Sodium Chloride (Sodium Chloride 0.9%) 1,000 mls @ 100 mls/hr IV .Q10H [facility] Stop: 08/20/18 10:36 Insulin Human Lispro (Humalog) 0 units SC ACHS [facility]; Protocol Last Admin: 08/18/18 13:00 Dose: 5 u Meclizine HCl (Antivert) 12.5 mg PO DAILY [facility] Last Admin: 08/18/18 09:27 Dose: 12.5 mg Metformin HCl (Glucophage) 1,000 mg PO BID [facility] Last Admin: 08/16/18 09:34 Dose: Not Given Metoprolol Succinate (Toprol Xl) 50 mg PO Q12 [facility] Last Admin: 08/18/18 09:25 Dose: 50 mg Morphine Sulfate (Morphine) 2 mg IVP Q6 PRN PRN Reason: Pain, moderate (4-7) Last Admin: 08/16/18 12:18 Dose: 2 mg Pantoprazole Sodium (Protonix Ec Tab) 40 mg PO DAILY [facility] Last Admin: 08/18/18 09:27 Dose: 40 mg Sucralfate (Carafate Oral Susp) 1 gm PO ACHS [facility] Last Admin: 08/18/18 13:00 Dose: 1 gm - Labs Labs: 08/18/18 05:00 08/18/18 05:00 Assessment and Plan (1) NSTEMI (non-ST elevated myocardial infarction) Status: Acute (2) Anginal equivalent Status: Acute (3) Nausea & vomiting Status: Acute (4) Abnormal EKG Status: Acute (5) Type 2 diabetes mellitus with hyperglycemia Status: Acute (6) Abdominal pain in female Status: Acute (7) Hypertension Status: Acute
--- NOTE | 2018-08-18 15:43 | CP.PCM.PN ---
Subjective - Date & Time of Evaluation Date of Evaluation: 08/18/18 Time of Evaluation: 15:42 - Subjective Subjective: renal follow up note no events overnight vitals reviewed heent normal op moist no jvd skin normal s1s2 present no resp distress abd soft ao times 3 [place]A/gastroenteritis/dm/htn cr stable non oliguric monitor I&Os lytes ok bp stable volume status stable dm per primary team Objective - Vital Signs/Intake and Output Vital Signs (last 24 hours): Temp Pulse Resp BP Pulse Ox 98.2 F 61 20 172/61 H 97 08/18/18 11:50 08/18/18 11:50 08/18/18 11:50 08/18/18 11:50 08/18/18 11:50 - Medications Medications: Current Medications Amlodipine Besylate (Norvasc) 5 mg PO Q12 [facility] Last Admin: 08/18/18 09:26 Dose: 5 mg Aspirin (Aspirin) 325 mg PO DAILY [facility] Last Admin: 08/18/18 09:53 Dose: 325 mg Atorvastatin Calcium (Lipitor) 20 mg PO DAILY [facility] Last Admin: 08/18/18 09:26 Dose: 20 mg Dextrose (Dextrose 50% Inj) 0 ml IV STAT PRN; Protocol PRN Reason: Hypoglycemia Protocol Dextrose (Glutose 15) 0 gm PO ONCE PRN; Protocol PRN Reason: Hypoglycemia Protocol Enoxaparin Sodium (Lovenox) 70 mg SC DAILY [facility]; Protocol Last Admin: 08/18/18 09:26 Dose: 70 mg Glucagon (Glucagen Diagnostic Kit) 0 mg IM STAT PRN; Protocol PRN Reason: Hypoglycemia Protocol Piperacillin Sod/Tazobactam (Sod 2.25 gm/ Sodium Chloride) 100 mls @ 100 mls/hr IVPB Q8 [facility]; Protocol Last Admin: 08/18/18 09:29 Dose: 100 mls/hr Sodium Chloride (Sodium Chloride 0.9%) 1,000 mls @ 100 mls/hr IV .Q10H [facility] Stop: 08/20/18 10:36 Insulin Human Lispro (Humalog) 0 units SC ACHS [facility]; Protocol Last Admin: 08/18/18 13:00 Dose: 5 u Meclizine HCl (Antivert) 12.5 mg PO DAILY [facility] Last Admin: 08/18/18 09:27 Dose: 12.5 mg Metformin HCl (Glucophage) 1,000 mg PO BID [facility] Last Admin: 08/16/18 09:34 Dose: Not Given Metoprolol Succinate (Toprol Xl) 50 mg PO Q12 [facility] Last Admin: 08/18/18 09:25 Dose: 50 mg Morphine Sulfate (Morphine) 2 mg IVP Q6 PRN PRN Reason: Pain, moderate (4-7) Last Admin: 08/16/18 12:18 Dose: 2 mg Pantoprazole Sodium (Protonix Ec Tab) 40 mg PO DAILY [facility] Last Admin: 08/18/18 09:27 Dose: 40 mg Sucralfate (Carafate Oral Susp) 1 gm PO ACHS [facility] Last Admin: 08/18/18 13:00 Dose: 1 gm - Labs Labs: 08/18/18 05:00 08/18/18 05:00
--- NOTE | 2018-08-19 01:01 | CP.PCM.PN ---
Subjective - Date & Time of Evaluation Date of Evaluation: 08/16/18 Time of Evaluation: 18:20 - Subjective Subjective: Seen and examined at the bed side. RR for Hypertensive Urgency yesterday. Today was complaining of Epigatsric Pain Trop Elevated. CT abdomen with IV Contrast at admission did not show any dissection. Patient was put on ACS protocol and [employer] consulted. o fever or chills. Objective - Vital Signs/Intake and Output Vital Signs (last 24 hours): Temp Pulse Resp BP Pulse Ox 97.2 F L 66 18 203/77 H 97 08/19/18 00:35 08/19/18 00:48 08/19/18 00:35 08/19/18 00:48 08/19/18 00:35 - Medications Medications: Current Medications Amlodipine Besylate (Norvasc) 10 mg PO DAILY [facility] Aspirin (Aspirin) 325 mg PO DAILY [facility] Last Admin: 08/18/18 09:53 Dose: 325 mg Atorvastatin Calcium (Lipitor) 20 mg PO DAILY [facility] Last Admin: 08/18/18 09:26 Dose: 20 mg Dextrose (Dextrose 50% Inj) 0 ml IV STAT PRN; Protocol PRN Reason: Hypoglycemia Protocol Dextrose (Glutose 15) 0 gm PO ONCE PRN; Protocol PRN Reason: Hypoglycemia Protocol Enoxaparin Sodium (Lovenox) 70 mg SC DAILY [facility]; Protocol Last Admin: 08/18/18 09:26 Dose: 70 mg Glucagon (Glucagen Diagnostic Kit) 0 mg IM STAT PRN; Protocol PRN Reason: Hypoglycemia Protocol Piperacillin Sod/Tazobactam (Sod 2.25 gm/ Sodium Chloride) 100 mls @ 100 mls/hr IVPB Q8 [facility]; Protocol Last Admin: 08/18/18 16:53 Dose: 100 mls/hr Sodium Chloride (Sodium Chloride 0.9%) 1,000 mls @ 100 mls/hr IV .Q10H [facility] Stop: 08/20/18 10:36 Insulin Human Lispro (Humalog) 0 units SC ACHS [facility]; Protocol Last Admin: 08/18/18 22:06 Dose: Not Given Meclizine HCl (Antivert) 12.5 mg PO DAILY [facility] Last Admin: 08/18/18 09:27 Dose: 12.5 mg Metformin HCl (Glucophage) 1,000 mg PO BID [facility] Last Admin: 08/16/18 09:34 Dose: Not Given Metoprolol Succinate (Toprol Xl) 50 mg PO Q12 [facility] Last Admin: 08/18/18 22:05 Dose: 50 mg Morphine Sulfate (Morphine) 2 mg IVP Q6 PRN PRN Reason: Pain, moderate (4-7) Last Admin: 08/16/18 12:18 Dose: 2 mg Pantoprazole Sodium (Protonix Ec Tab) 40 mg PO DAILY [facility] Last Admin: 08/18/18 09:27 Dose: 40 mg Sucralfate (Carafate Oral Susp) 1 gm PO ACHS [facility] Last Admin: 08/18/18 22:07 Dose: 1 gm - Labs Labs: 08/18/18 05:00 08/18/18 05:00 Assessment and Plan (1) Acute gastroenteritis Status: Resolved (2) Hypertensive urgency Status: Resolved (3) Abdominal pain in female Status: Resolved (4) Dizziness Status: Acute (5) Type 2 diabetes mellitus with hyperglycemia Status: Chronic (6) NSTEMI (non-ST elevated myocardial infarction) Status: Acute (7) DVT (deep venous thrombosis) Assessment & Plan: Right SFV (Mid and distal) Status: Acute - Assessment and Plan (Free Text) Plan: Continue Current care Serial Trop and EKG TTE ACS protocol including Therapeutic Lovenox [employer] Consulted with Dr. Mendoza
--- NOTE | 2018-08-19 01:02 | CP.PCM.PN ---
Subjective - Date & Time of Evaluation Date of Evaluation: 08/17/18 Time of Evaluation: 16:15 - Subjective Subjective: Seen and examined at the bed side. No new complaint. Objective - Vital Signs/Intake and Output Vital Signs (last 24 hours): Temp Pulse Resp BP Pulse Ox 97.2 F L 66 18 203/77 H 97 08/19/18 00:35 08/19/18 00:48 08/19/18 00:35 08/19/18 00:48 08/19/18 00:35 - Medications Medications: Current Medications Amlodipine Besylate (Norvasc) 10 mg PO DAILY [facility] Aspirin (Aspirin) 325 mg PO DAILY [facility] Last Admin: 08/18/18 09:53 Dose: 325 mg Atorvastatin Calcium (Lipitor) 20 mg PO DAILY [facility] Last Admin: 08/18/18 09:26 Dose: 20 mg Dextrose (Dextrose 50% Inj) 0 ml IV STAT PRN; Protocol PRN Reason: Hypoglycemia Protocol Dextrose (Glutose 15) 0 gm PO ONCE PRN; Protocol PRN Reason: Hypoglycemia Protocol Enoxaparin Sodium (Lovenox) 70 mg SC DAILY [facility]; Protocol Last Admin: 08/18/18 09:26 Dose: 70 mg Glucagon (Glucagen Diagnostic Kit) 0 mg IM STAT PRN; Protocol PRN Reason: Hypoglycemia Protocol Piperacillin Sod/Tazobactam (Sod 2.25 gm/ Sodium Chloride) 100 mls @ 100 mls/hr IVPB Q8 [facility]; Protocol Last Admin: 08/18/18 16:53 Dose: 100 mls/hr Sodium Chloride (Sodium Chloride 0.9%) 1,000 mls @ 100 mls/hr IV .Q10H [facility] Stop: 08/20/18 10:36 Insulin Human Lispro (Humalog) 0 units SC ACHS [facility]; Protocol Last Admin: 08/18/18 22:06 Dose: Not Given Meclizine HCl (Antivert) 12.5 mg PO DAILY [facility] Last Admin: 08/18/18 09:27 Dose: 12.5 mg Metformin HCl (Glucophage) 1,000 mg PO BID [facility] Last Admin: 08/16/18 09:34 Dose: Not Given Metoprolol Succinate (Toprol Xl) 50 mg PO Q12 [facility] Last Admin: 08/18/18 22:05 Dose: 50 mg Morphine Sulfate (Morphine) 2 mg IVP Q6 PRN PRN Reason: Pain, moderate (4-7) Last Admin: 08/16/18 12:18 Dose: 2 mg Pantoprazole Sodium (Protonix Ec Tab) 40 mg PO DAILY [facility] Last Admin: 08/18/18 09:27 Dose: 40 mg Sucralfate (Carafate Oral Susp) 1 gm PO ACHS [facility] Last Admin: 08/18/18 22:07 Dose: 1 gm - Labs Labs: 08/18/18 05:00 08/18/18 05:00 Assessment and Plan (1) Acute gastroenteritis Status: Resolved (2) Hypertensive urgency Status: Resolved (3) Abdominal pain in female Status: Resolved (4) Dizziness Status: Acute (5) Type 2 diabetes mellitus with hyperglycemia Status: Chronic (6) Bacteremia Status: Acute (7) DVT (deep venous thrombosis) Status: Acute (8) NSTEMI (non-ST elevated myocardial infarction) Status: Acute - Assessment and Plan (Free Text) Plan: Continue Current Care.
--- NOTE | 2018-08-19 01:03 | CP.PCM.PN ---
Subjective - Date & Time of Evaluation Date of Evaluation: 08/18/18 Time of Evaluation: 16:35 - Subjective Subjective: Seen and examined at the bed side. Daughter and at the bed side. Patient asking to go home. C/O Right Leg pain. Patient on therapeutic Lovenox for ACS. Denies chest pain or sob. Creatinine Trending down with Creat today 1.6 Objective - Vital Signs/Intake and Output Vital Signs (last 24 hours): Temp Pulse Resp BP Pulse Ox 97.2 F L 66 18 203/77 H 97 08/19/18 00:35 08/19/18 00:48 08/19/18 00:35 08/19/18 00:48 08/19/18 00:35 - Medications Medications: Current Medications Amlodipine Besylate (Norvasc) 10 mg PO DAILY [facility] Aspirin (Aspirin) 325 mg PO DAILY [facility] Last Admin: 08/18/18 09:53 Dose: 325 mg Atorvastatin Calcium (Lipitor) 20 mg PO DAILY [facility] Last Admin: 08/18/18 09:26 Dose: 20 mg Dextrose (Dextrose 50% Inj) 0 ml IV STAT PRN; Protocol PRN Reason: Hypoglycemia Protocol Dextrose (Glutose 15) 0 gm PO ONCE PRN; Protocol PRN Reason: Hypoglycemia Protocol Enoxaparin Sodium (Lovenox) 70 mg SC DAILY [facility]; Protocol Last Admin: 08/18/18 09:26 Dose: 70 mg Glucagon (Glucagen Diagnostic Kit) 0 mg IM STAT PRN; Protocol PRN Reason: Hypoglycemia Protocol Piperacillin Sod/Tazobactam (Sod 2.25 gm/ Sodium Chloride) 100 mls @ 100 mls/hr IVPB Q8 [facility]; Protocol Last Admin: 08/18/18 16:53 Dose: 100 mls/hr Sodium Chloride (Sodium Chloride 0.9%) 1,000 mls @ 100 mls/hr IV .Q10H [facility] Stop: 08/20/18 10:36 Insulin Human Lispro (Humalog) 0 units SC ACHS [facility]; Protocol Last Admin: 08/18/18 22:06 Dose: Not Given Meclizine HCl (Antivert) 12.5 mg PO DAILY [facility] Last Admin: 08/18/18 09:27 Dose: 12.5 mg Metformin HCl (Glucophage) 1,000 mg PO BID [facility] Last Admin: 08/16/18 09:34 Dose: Not Given Metoprolol Succinate (Toprol Xl) 50 mg PO Q12 [facility] Last Admin: 08/18/18 22:05 Dose: 50 mg Morphine Sulfate (Morphine) 2 mg IVP Q6 PRN PRN Reason: Pain, moderate (4-7) Last Admin: 08/16/18 12:18 Dose: 2 mg Pantoprazole Sodium (Protonix Ec Tab) 40 mg PO DAILY [facility] Last Admin: 08/18/18 09:27 Dose: 40 mg Sucralfate (Carafate Oral Susp) 1 gm PO ACHS [facility] Last Admin: 08/18/18 22:07 Dose: 1 gm - Labs Labs: 08/18/18 05:00 08/18/18 05:00 - Constitutional Appears: Well, No Acute Distress - Head Exam Head Exam: ATRAUMATIC, NORMAL INSPECTION, NORMOCEPHALIC - Eye Exam Eye Exam: EOMI, Normal appearance, PERRL Pupil Exam: NORMAL ACCOMODATION, PERRL - ENT Exam ENT Exam: Mucous Membranes Moist, Normal Exam - Neck Exam Neck Exam: Full ROM, Normal Inspection. absent: Lymphadenopathy - Respiratory Exam Respiratory Exam: Clear to Ausculation Bilateral, NORMAL BREATHING PATTERN - Cardiovascular Exam Cardiovascular Exam: REGULAR RHYTHM, +S1, +S2. absent: Murmur - GI/Abdominal Exam GI & Abdominal Exam: Soft, Normal Bowel Sounds. absent: Tenderness - Extremities Exam Extremities Exam: Full ROM, Normal Capillary Refill, Normal Inspection. absent: Joint Swelling, Pedal Edema - Back Exam Back Exam: NORMAL INSPECTION - Neurological Exam Neurological Exam: Alert, Awake, CN II-XII Intact, Normal Gait, Oriented x3 - Psychiatric Exam Psychiatric exam: Normal Affect, Normal Mood - Skin Skin Exam: Dry, Intact, Normal Color, Warm Assessment and Plan (1) Acute gastroenteritis Status: Resolved (2) Hypertensive urgency Status: Resolved (3) Abdominal pain in female Status: Acute (4) Dizziness Status: Acute (5) Type 2 diabetes mellitus with hyperglycemia Status: Acute (6) NSTEMI (non-ST elevated myocardial infarction) Status: Acute (7) Gallbladder disease Status: Acute (8) A[place]A (acute kidney injury) Assessment & Plan: Most Likely Contrast Induced Status: Acute - Assessment and Plan (Free Text) Plan: On ACS Protocol Will do Cardiac Cath when Creatinine normalizes B/L LE Venous Doppler V/Q Scan HIDA Scan as Per surgery Recommendation Continue Current Care Manager Business Intelligence, Surgery, ID, Hospice Massage Therapist and Neurologist Onboard
[2018-08-19 05:18] LABS: BASO # 0.1 K/uL (0.0-0.2); BASO % 0.6 % (0.0-2.0); EOS # 0.2 K/uL (0.0-0.7); HEMOGLOBIN 10.6 g/dL (12.0-16.0); MEAN CELL VOLUME 92.4 fl (81.0-99.0); MEAN CORPUSCULAR HEMOGLOBIN 31.3 pg (27.0-31.0); MEAN CORPUSCULAR HGB CONC 33.9 g/dL (33.0-37.0); MEAN PLATELET VOLUME 8.3 fl (7.2-11.7); MONO % 11.5 % (0.0-10.0); NEUT # 5.5 K/uL (1.8-7.0); NEUT % 62.9 % (50.0-75.0); NRBC % 0.1 % (0.0-0.0); RBC 3.38 Mil/uL (3.80-5.20); RED CELL DISTRIBUTION WIDTH 13.1 % (11.5-14.5); WHITE BLOOD COUNT 8.8 K/uL (4.8-10.8)
[2018-08-19 05:19] LABS: ALB/GLOB RATIO 1.1 (1.0-2.1); ALBUMIN 3.4 g/dL (3.5-5.0); ALT/SGPT 24 U/L (9-52); AST/SGOT 27 U/L (14-36); BLOOD UREA NITROGEN 21 mg/dl (7-17); CALCIUM 8.5 mg/dL (8.4-10.2); GFR NON-AFRICAN AMERICAN 31
[2018-08-19] MEDS: Sodium Chloride 0.9% 1,000 ML IV SCH ×2 (05:51→22:46)
--- NOTE | 2018-08-19 07:40 | CP.PCM.PN ---
<Mendy Munguia - Last Filed: 08/19/18 08:06> Subjective - Date & Time of Evaluation Date of Evaluation: 08/19/18 Time of Evaluation: 07:00 - Subjective Subjective: Patient seen and examined this am at bedside. NAEO per nursing. Patient denies f/c, n/v, diarrhea, abdominal pain, MEEK, CP, SOB, and extremity pain or weakness. Objective - Vital Signs/Intake and Output Vital Signs (last 24 hours): Temp Pulse Resp BP Pulse Ox 98.3 F 60 20 169/70 H 99 08/19/18 05:00 08/19/18 05:00 08/19/18 05:00 08/19/18 05:00 08/19/18 05:00 - Medications Medications: Current Medications Amlodipine Besylate (Norvasc) 10 mg PO DAILY [facility] Aspirin (Aspirin) 325 mg PO DAILY [facility] Last Admin: 08/18/18 09:53 Dose: 325 mg Atorvastatin Calcium (Lipitor) 20 mg PO DAILY [facility] Last Admin: 08/18/18 09:26 Dose: 20 mg Dextrose (Dextrose 50% Inj) 0 ml IV STAT PRN; Protocol PRN Reason: Hypoglycemia Protocol Dextrose (Glutose 15) 0 gm PO ONCE PRN; Protocol PRN Reason: Hypoglycemia Protocol Enoxaparin Sodium (Lovenox) 70 mg SC DAILY [facility]; Protocol Last Admin: 08/18/18 09:26 Dose: 70 mg Glucagon (Glucagen Diagnostic Kit) 0 mg IM STAT PRN; Protocol PRN Reason: Hypoglycemia Protocol Piperacillin Sod/Tazobactam (Sod 2.25 gm/ Sodium Chloride) 100 mls @ 100 mls/hr IVPB Q8 [facility]; Protocol Last Admin: 08/19/18 01:48 Dose: 100 mls/hr Sodium Chloride (Sodium Chloride 0.9%) 1,000 mls @ 100 mls/hr IV .Q10H [facility] Stop: 08/20/18 10:36 Last Admin: 08/19/18 05:51 Dose: 100 mls/hr Insulin Human Lispro (Humalog) 0 units SC ACHS [facility]; Protocol Last Admin: 08/18/18 22:06 Dose: Not Given Meclizine HCl (Antivert) 12.5 mg PO DAILY [facility] Last Admin: 08/18/18 09:27 Dose: 12.5 mg Metformin HCl (Glucophage) 1,000 mg PO BID [facility] Last Admin: 08/16/18 09:34 Dose: Not Given Metoprolol Succinate (Toprol Xl) 50 mg PO Q12 [facility] Last Admin: 08/18/18 22:05 Dose: 50 mg Morphine Sulfate (Morphine) 2 mg IVP Q6 PRN PRN Reason: Pain, moderate (4-7) Last Admin: 08/16/18 12:18 Dose: 2 mg Pantoprazole Sodium (Protonix Ec Tab) 40 mg PO DAILY [facility] Last Admin: 08/18/18 09:27 Dose: 40 mg Sucralfate (Carafate Oral Susp) 1 gm PO ACHS [facility] Last Admin: 08/18/18 22:07 Dose: 1 gm - Labs Labs: 08/19/18 04:45 08/19/18 04:45 - Constitutional Appears: Well, Non-toxic, No Acute Distress - Head Exam Head Exam: ATRAUMATIC, NORMOCEPHALIC - Eye Exam Eye Exam: EOMI - ENT Exam ENT Exam: Mucous Membranes Moist - Respiratory Exam Respiratory Exam: NORMAL BREATHING PATTERN - Cardiovascular Exam Cardiovascular Exam: REGULAR RHYTHM - GI/Abdominal Exam GI & Abdominal Exam: Soft. absent: Distended, Guarding, Tenderness - Extremities Exam Extremities Exam: absent: Calf Tenderness, Pedal Edema - Neurological Exam Neurological Exam: Alert, Awake, Oriented x3 - Psychiatric Exam Psychiatric exam: Normal Affect, Normal Mood - Skin Skin Exam: Dry, Intact, Normal Color, Warm Assessment and Plan - Assessment and Plan (Free Text) Assessment: 73 yr old female with cholelithiasis and history of gastritis Plan: HIDA today, will f/u results LFTs not suggestive of cholecystitis, likely gastritis NPO until after HIDA IVF until on diet d/w Dr. Roseann Munguia, PGY 1 <Carlos Whitfield - Last Filed: 08/19/18 11:43> Subjective - Date & Time of Evaluation Time of Evaluation: 11:00 - Subjective Subjective: Patient coded this morning and was intubated and taken to the ICU. Objective - Vital Signs/Intake and Output Vital Signs (last 24 hours): Temp Pulse Resp BP Pulse Ox 98.5 F 115 H 20 172/110 H 100 08/19/18 10:30 08/19/18 10:30 08/19/18 10:30 08/19/18 10:30 08/19/18 10:30 - Medications Medications: Current Medications Amlodipine Besylate (Norvasc) 10 mg PO DAILY [facility] Last Admin: 08/19/18 08:34 Dose: 10 mg Aspirin (Aspirin) 325 mg PO DAILY [facility] Last Admin: 08/18/18 09:53 Dose: 325 mg Atorvastatin Calcium (Lipitor) 20 mg PO DAILY [facility] Last Admin: 08/18/18 09:26 Dose: 20 mg Dextrose (Dextrose 50% Inj) 0 ml IV STAT PRN; Protocol PRN Reason: Hypoglycemia Protocol Dextrose (Glutose 15) 0 gm PO ONCE PRN; Protocol PRN Reason: Hypoglycemia Protocol Enoxaparin Sodium (Lovenox) 70 mg SC DAILY [facility]; Protocol Last Admin: 08/19/18 08:34 Dose: 70 mg Glucagon (Glucagen Diagnostic Kit) 0 mg IM STAT PRN; Protocol PRN Reason: Hypoglycemia Protocol Piperacillin Sod/Tazobactam (Sod 2.25 gm/ Sodium Chloride) 100 mls @ 100 mls/hr IVPB Q8 [facility]; Protocol Last Admin: 08/19/18 08:33 Dose: 100 mls/hr Sodium Chloride (Sodium Chloride 0.9%) 1,000 mls @ 100 mls/hr IV .Q10H [facility] Stop: 08/20/18 10:36 Last Admin: 08/19/18 05:51 Dose: 100 mls/hr Norepinephrine Bitartrate 4 mg (/ Dextrose) 254 mls @ 9.53 mls/hr IV .Q24H [facility]; Protocol Vancomycin HCl 1 gm/ Sodium (Chloride) 250 mls @ 166.667 mls/hr IVPB ONCE [facility]; Protocol Stop: 08/19/18 11:53 Sodium Chloride (Sodium Chloride 0.9%) 1,000 mls @ 100 mls/hr IV .Q10H [facility] Stop: 08/19/18 20:25 Insulin Human Lispro (Humalog) 0 units SC ACHS [facility]; Protocol Last Admin: 08/19/18 11:30 Dose: 5 u Meclizine HCl (Antivert) 12.5 mg PO DAILY [facility] Last Admin: 08/18/18 09:27 Dose: 12.5 mg Metformin HCl (Glucophage) 1,000 mg PO BID [facility] Last Admin: 08/16/18 09:34 Dose: Not Given Metoprolol Succinate (Toprol Xl) 50 mg PO Q12 [facility] Last Admin: 08/19/18 08:34 Dose: 50 mg Morphine Sulfate (Morphine) 2 mg IVP Q6 PRN PRN Reason: Pain, moderate (4-7) Last Admin: 08/16/18 12:18 Dose: 2 mg Pantoprazole Sodium (Protonix Ec Tab) 40 mg PO DAILY [facility] Last Admin: 08/18/18 09:27 Dose: 40 mg Sucralfate (Carafate Oral Susp) 1 gm PO ACHS [facility] Last Admin: 08/18/18 22:07 Dose: 1 gm - Labs Labs: 08/19/18 04:45 08/19/18 04:45 - GI/Abdominal Exam Additional comments: soft, NT, ND, BS+, no rebound, no guarding Assessment and Plan - Assessment and Plan (Free Text) Plan: - HIDA scan when stable - Continue ventilator support - If HIDA scan positive patient will require cholecystostomy tube - Patient is a poor surgical candidate at present time - Continue care as per Medical and ICU teams - Repeat labs in am - Will follow
[2018-08-19 07:57] LABS: HDL CHOLESTEROL 35 MG/DL (30-70)
[2018-08-19 08:09] LABS: LDL CHOLESTEROL < 30 mg/dL (0-129)
[2018-08-19] MEDS: Metoprolol Succinate 50 mg XL Tab PO SCH (08:34)
[2018-08-19] MEDS: Enoxaparin 80 mg Syringe SC SCH (08:34)
[2018-08-19] MEDS ORDERED: EPINEPHrine 1 mg/ml (1:1000) Inj IV ONE ×4 (10:22→10:26)
[2018-08-19] MEDS ORDERED: Sodium Chloride 0.9% 1,000 ML IV STA (10:26)
[2018-08-19] MEDS ORDERED: Sodium Chloride 3% for Inhalation 4 ML VIAL.NEB IH PRN (10:54)
--- NOTE | 2018-08-19 11:14 | RAD ---
Date of service: 08/19/2018 HISTORY: Post intubation in ER COMPARISON: Portable chest 08/19/2018. FINDINGS: LUNGS: Endotracheal tube unchanged in position. Nasogastric tube now placed entry into the left ryan abdomen with the tip off the image. Increasing infiltrate right apex with remaining lung bertrand clear. PLEURA: No significant pleural effusion identified, no pneumothorax apparent. CARDIOVASCULAR: Calcific atherosclerotic changes are seen related to the thoracic aorta. External pacer unchanged in position. Cardiac silhouette technically magnified. No pulmonary vascular congestion. OSSEOUS STRUCTURES: No significant abnormalities. VISUALIZED UPPER ABDOMEN: Normal. OTHER FINDINGS: None. IMPRESSION: Mild increase in right apical infiltrate with remaining lung bertrand clear. Interval nasogastric tube placement directed into left ryan abdomen.
[2018-08-19] MEDS: Insulin Lispro (humaLOG) 100 Units/ml Inj SC SCH ×3 (11:30→21:12)
--- NOTE | 2018-08-19 11:31 | RAD ---
Date of service: 08/19/2018 HISTORY: cough COMPARISON: No prior. FINDINGS: LUNGS: Right upper lobe infiltrate has identified with remaining lung bertrand clear. Endotracheal tube is placed with the tip terminating 2 cm above the kevon. PLEURA: No significant pleural effusion identified, no pneumothorax apparent. CARDIOVASCULAR: No aortic atherosclerotic calcification present. Normal cardiac size. No pulmonary vascular congestion. OSSEOUS STRUCTURES: No significant abnormalities. VISUALIZED UPPER ABDOMEN: Normal. OTHER FINDINGS: None. IMPRESSION: Right upper lobe apical infiltrate. ET tube in good apparent position.
--- NOTE | 2018-08-19 11:36 | CP.CCUPN ---
CCU Subjective - Physician Review Subjective (Free Text): 73F transferred to ICU post [employer]/Jeana Doe event this AM: was in Nuclear for HIDA scan and collapsed to the floor, no resuscitative measures performed after noting palpable pulses and active respirations after this syncopal episode, HR on ekg monitor tech revealed sinus rhythm at 70/min, placed onto a stretcher, moved to ER for further evaluation. Approx several minutes later, Jeana Doe called again for hypotension to 60/38 and bradycardia with HR dropping to the 4 0s. Given epinephrine x 4 and subsequently intubated onto MV, TLC placed and immediately transferred to ICU for further mgmt. Upon arrival to ICU, HR 107 in sinus, BP 121/72, RR 27 on AC 14, TV 550, 100% oxygen and PEEP 5. Ve= 17.0 and PAP 12, SPO2 100%. She is unresponsive post-resuscitation, proximal extremities appear mottled, skin is warm and non-cyanotic, distal pulses are palpable and symmetrical. Telemetry nurses reports patient did receive AM meds including Metoprolol Succ, Zosyn and Lovenox; patient c/o RLE Calf pain yesterday and epigastric pain. Trops over the last 2 days were positive in the 3 to 2 range. Admission EKG showed anterolateral ST depression changes. Last EKG done 08/16 did not show any specific ischemic changes. ECHO done on 08/16 as well showed EF 65%, mild DDysfx, but moderate TR. Other vitals and I/O's reviewed. No fever spikes last 24H. ROS: No other pertinent negs or positives on 10+ system review obtainable due to unresponsiveness, on MV. ALLERGIES: NKDA Home Meds: Lipitor, Antivert, Metformin, Metoprolol Succ, Protonix. PMSFH: DM II, HTN, Gastritis. All other Nursing and physician documentation reviewed to date; no new pertinent info noted relevant to current medical problems. EXAM- HEENT: no icterus, no gaze preference, Pupils 3 mm and reactive NECK: No JVD visible, supple, carotids equal upstroke bilat/no bruit CHEST: decreased BS at the bases, no wheezes audible HEART: regular, distant, S1S2, no rubs ABD: soft and nontender, no tympany, no guarding, no organomegaly, BS absent. EXT: no LE edema, no calf tenderness or palpable cords, distal pulses intact and symmetrical. NEURO: no focal motor weakness SKIN: no rashes, warm and dry LABS: WBC= 8.8 HGB= 10.6 PLTs= 247K Ddimer = 1790 No coags on admission, nor recently. Na= 142 K= 4.9 ZO=433 HCO3= 24 BUN/Cr= 21/1.6 BS= 224 CXR: -There is no admission CXR. - post intubation film show ETT OK above kevon, RUL infiltrate noted ( my interp) EKG: my interp as described above. repeat study pending post-Code. CTAP done, results reviewed, no significant findings to account for patients c/o epigastric pain. US Abdomen done, showing multiple gallstones, no GB wall thickening, +sonographic Reynolds. IMPRESSION / MAJOR PROBLEMS NOW: 1. Hypotension / Bradycardia 2 Antihypertensive meds, r/o recurrent myocardial ischemia / AMI; on MV support post-resuscitation from Code Blue, r/o Anoxic Encephalopathy 2. Acute / Subacute NSTEMI 3. Coag neg Staph Bacteremia 4. Azotemia / Dehydration, r/o [place] ATN 5. r/o GB / Biliary Tract disease 6. Uncontrolled DM II PLAN: 1. MV support, check ABG, CXR shows new infiltrate, may be aspiration-related. Check sputum Cx, Vanco added to Zosyn already empirically. 2. Clonidine already stopped. Hold Amlodipine and long-acting BBs for now pending stabilization of BP. On ASA, Statin, LMWH started, and will continue for now. 3. Volume expansion as tolerated. 4. Nephro f/u, does not need [employer] at this point in time, IV fluid challenges ordered. 5. Repeat Blood cultures. Follow serial Lactates. Check Vanco level for next dose. 6. Venous Doppler US of LEs. Hold on any IV contrast studies for now. Therapeutic Lovenox already ordered. 7. HIDA cancelled today for now. 8. No Advance Directives noted. Await family arrival to ICU. Time spent with this patient did not overlap with any other provider's medical or critical care time. Additionally the code selected for the services rendered in this note includes the time spent: talking to the patients family, associated physicians and reviewing hospital data/results not listed here which extended to a total of 50 minutes of critical care.
[2018-08-19 11:55] LABS: SQUAMOUS EPITHIAL < 1 /hpf (0-5); URINE BACTERIA RARE (<OCC); URINE BILIRUBIN NEGATIVE (NEGATIVE); URINE BLOOD SMALL (NEGATIVE); URINE CLARITY CLOUDY (Clear); URINE COLOR YELLOW (YELLOW); URINE GLUCOSE (UA) 150 mg/dL (Normal); URINE LEUKOCYTE ESTERASE NEG Leu/uL (Negative); URINE PROTEIN 100 mg/dL (NEGATIVE); URINE URIC ACID CRYSTALS RARE /hpf (<OCC); URINE UROBILINOGEN 0.2-1.0 mg/dL (0.2-1.0)
--- NOTE | 2018-08-19 13:11 | CP.PCM.PN ---
Subjective - Date & Time of Evaluation Date of Evaluation: 08/19/18 Time of Evaluation: 09:00 - Subjective Subjective: admitted for cholelithiasis r/o cholecystitis and found to have ACS/ ID s/p cardiac arrest intubated on vent in ICU no new positive cultures Objective - Vital Signs/Intake and Output Vital Signs (last 24 hours): Temp Pulse Resp BP Pulse Ox 98.5 F 108 H 34 H 169/98 H 100 08/19/18 10:30 08/19/18 11:25 08/19/18 11:25 08/19/18 11:25 08/19/18 11:25 - Medications Medications: Current Medications Amlodipine Besylate (Norvasc) 10 mg PO DAILY [facility] Last Admin: 08/19/18 08:34 Dose: 10 mg Aspirin (Aspirin) 325 mg PO DAILY [facility] Last Admin: 08/18/18 09:53 Dose: 325 mg Atorvastatin Calcium (Lipitor) 20 mg PO DAILY [facility] Last Admin: 08/18/18 09:26 Dose: 20 mg Dextrose (Dextrose 50% Inj) 0 ml IV STAT PRN; Protocol PRN Reason: Hypoglycemia Protocol Dextrose (Glutose 15) 0 gm PO ONCE PRN; Protocol PRN Reason: Hypoglycemia Protocol Enoxaparin Sodium (Lovenox) 70 mg SC DAILY [facility]; Protocol Last Admin: 08/19/18 08:34 Dose: 70 mg Glucagon (Glucagen Diagnostic Kit) 0 mg IM STAT PRN; Protocol PRN Reason: Hypoglycemia Protocol Piperacillin Sod/Tazobactam (Sod 2.25 gm/ Sodium Chloride) 100 mls @ 100 mls/hr IVPB Q8 [facility]; Protocol Last Admin: 08/19/18 08:33 Dose: 100 mls/hr Sodium Chloride (Sodium Chloride 0.9%) 1,000 mls @ 100 mls/hr IV .Q10H [facility] Stop: 08/20/18 10:36 Last Admin: 08/19/18 05:51 Dose: 100 mls/hr Norepinephrine Bitartrate 4 mg (/ Dextrose) 254 mls @ 9.53 mls/hr IV .Q24H [facility]; Protocol Sodium Chloride (Sodium Chloride 0.9%) 1,000 mls @ 100 mls/hr IV .Q10H [facility] Stop: 08/19/18 20:25 Last Admin: 08/19/18 12:09 Dose: 100 mls/hr Insulin Human Lispro (Humalog) 0 units SC [facility]; Protocol Last Admin: 08/19/18 11:30 Dose: 5 u Meclizine HCl (Antivert) 12.5 mg PO DAILY [facility] Last Admin: 08/18/18 09:27 Dose: 12.5 mg Metformin HCl (Glucophage) 1,000 mg PO BID [facility] Last Admin: 08/16/18 09:34 Dose: Not Given Metoprolol Succinate (Toprol Xl) 50 mg PO Q12 [facility] Last Admin: 08/19/18 08:34 Dose: 50 mg Morphine Sulfate (Morphine) 2 mg IVP Q6 PRN PRN Reason: Pain, moderate (4-7) Last Admin: 08/16/18 12:18 Dose: 2 mg Pantoprazole Sodium (Protonix Ec Tab) 40 mg PO DAILY [facility] Last Admin: 08/18/18 09:27 Dose: 40 mg Sucralfate (Carafate Oral Susp) 1 gm PO [facility] Last Admin: 08/18/18 22:07 Dose: 1 gm - Labs Labs: 08/19/18 04:45 08/19/18 04:45 - Constitutional Appears: Confused, Chronically Ill - Head Exam Head Exam: NORMOCEPHALIC - Eye Exam Eye Exam: absent: Scleral icterus - ENT Exam ENT Exam: Mucous Membranes Dry - Neck Exam Neck Exam: absent: Lymphadenopathy - Respiratory Exam Respiratory Exam: Decreased Breath Sounds, Prolonged Expiratory Phase, Rhonchi - Cardiovascular Exam Cardiovascular Exam: REGULAR RHYTHM, +S1, +S2 - GI/Abdominal Exam GI & Abdominal Exam: Distended, Soft - Rectal Exam Rectal Exam: Deferred - Exam Exam: NORMAL INSPECTION - Extremities Exam Extremities Exam: absent: Pedal Edema - Back Exam Back Exam: absent: CVA tenderness (L), CVA tenderness (R) - Neurological Exam Neurological Exam: Altered, CN II-XII Intact - Psychiatric Exam Psychiatric exam: Depressed Assessment and Plan (1) Dehydration Status: Acute (2) NSTEMI (non-ST elevated myocardial infarction) Status: Acute (3) Nausea & vomiting Status: Acute (4) Type 2 diabetes mellitus with hyperglycemia Status: Acute (5) Abdominal pain Status: Acute (6) Gallbladder disease Status: Acute - Assessment and Plan (Free Text) Assessment: s/p cardiac arrest now intubated in ICU poor prognosis cont IV antibiotics
[2018-08-19 13:56] LABS: ABG ALLEN TEST YES; ARTERIAL BLOOD GAS HCO3 14.4 mmol/L (21-28); ARTERIAL BLOOD GAS O2 SAT 99.8 % (95-98); ARTERIAL BLOOD GAS PCO2 32 mm/Hg (35-45); ARTERIAL BLOOD GAS PH 7.22 (7.35-7.45); ARTERIAL BLOOD GAS PO2 140 mm/Hg (80-100); ARTERIAL BLOOD GAS TCO2 14.1 mmol/L (22-28)
--- NOTE | 2018-08-19 14:44 | US ---
Date of service: 08/19/2018 PROCEDURE: Bilateral lower extremity venous duplex Doppler. HISTORY: R/O DVT COMPARISON: None available. TECHNIQUE: Bilateral common femoral, superficial femoral, popliteal and posterior tibial veins were evaluated. Flow was assessed with color Doppler, compressibility, assessment of phasic flow and augmentation response. FINDINGS: COMMON FEMORAL VEIN: Right CFV: Unremarkable. Left CFV: Unremarkable. SUPERFICIAL FEMORAL VEIN: Right SFV: Intraluminal thrombus in mid and distal superficial femoral vein with noncompressibility. Absent flow. Left SFV: Unremarkable. POPLITEAL VEIN: Right Popliteal: Unremarkable. Left Popliteal: Unremarkable. POSTERIOR TIBIAL VEIN: Right PTV: Unremarkable. Left PTV: Unremarkable. OTHER FINDINGS: None. IMPRESSION: Deep venous thrombosis in right mid and distal superficial femoral vein.
[2018-08-19] MEDS: Pantoprazole 40 mg EC Tab PO SCH (16:51)
--- NOTE | 2018-08-19 17:26 | PQF ---
PROVIDER RESPONSE TEXT: Provider was unable to determine a response for this query. REVIEWER QUERY TEXT: Clarification of Clinical Diagnostic Findings Please clarify if there is an associated diagnosis to go along with the procedure :intubation and o nto mechanical ventilation :ie. due to protect airway etc. OR: Other explanation of clinical finding 08/19 Critical Care note; 73F transferred to ICU post [employer]/Jeana Doe event this AM: was in Nuclear for HIDA scan and collapsed to the floor, no resuscitative measures performed after noting palpable puls es and active respirations after this syncopal episode, HR on cardiac cath lab radiology technologist revealed sinus rhythm a t 70/min, placed onto a stretcher, moved to ER for further evaluation. Approx several minutes later, Jeana Doe called again for hypotension to 60/38 and bradycardia with HR dropping to the 40?s. Given e pinephrine x 4 and subsequently intubated onto MV, TLC placed and immediately transferred to ICU for further mgmt. Upon arrival to ICU, HR 107 in sinus, BP 121/72, RR 27 on AC 14, TV 550, 100% oxygen and PEEP 5. Ve= 17.0 and PAP 12, SPO2 100%. She is unresponsive post-resuscitation, proximal extremities appear mottled, skin is warm and non-cyanotic, distal pulses are palpable and symmetrical . Plan: MV support, check ABG, CXR shows new infiltrate, may be aspiration-related. 08/19 ID progress note includes: Subjective: admitted for cholelithiasis r/o cholecystitis and found to have ACS/ TN ,s/p cardiac arrest ,intubated on vent in ICU , no new positive cultures The patient's Clinical Indicators include: - Query created by: Amber Aguilar on 08/19/2018 1:58 PM Electronically signed by: Morgan Melendez DO 08/19/2018 5:23 PM
[2018-08-19] MEDS: Propofol 10 mg/ml 1,000 MG/100 ML VIAL IV SCH ×2 (17:43→22:35)
--- NOTE | 2018-08-19 18:34 | CARD ---
APPROVED REPORT Date of service: 08/19/2018 EKG Measurement Heart [id number] <Conclusion> Sinus tachycardia Nonspecific ST and T wave abnormality Abnormal ECG
--- NOTE | 2018-08-19 22:45 | PQF ---
PROVIDER RESPONSE TEXT: Acute Renal Failure due to ATN Possibly Contrast Induced. REVIEWER QUERY TEXT: Clarification of Clinical Diagnostic Findings Please clarify if there is an additional diagnosis to go along with the following chemistry lab find ings: BUN:18->23 Creatinine:0.8->1.3 Est GFR ( Amer)>:60 ->48 Est GFR ( Non-Afr Amer) >60->40 ER: CC: Abdominal Pain Clin Imp:Gastroenteritis, Vertigo, Dehydration, Hypokalemia H and P: (1) Acute gastroenteritis Status: Acute (2) Hypertensive urgency Status: Acute (3) Abdominal pain in female Status: Acute (4) Dizziness Status: Acute (5) Type 2 diabetes mellitus with hyperglycemia Status: Acute ER: IVF's .9 NS 1,000 mls/hr.: duration one hour The patient's Clinical Indicators include: - Query created by: Amber Aguilar on 08/15/2018 2:54 PM Electronically signed by: Meghan Gore MD 08/19/2018 10:42 PM
--- NOTE | 2018-08-19 22:45 | PQF ---
PROVIDER RESPONSE TEXT: Bacteremia Ruled in REVIEWER QUERY TEXT: Clarification of Clinical Diagnostic Findings Bacteremia ruled in or ruled out? OR: Unable to determine OR: Other explanation of clinical finding 08/13 Blood culture x2: Coag Neg Staph 08/14: Blood culture x2: Prelim after 48 hrs.: No growth after 4 days 08/17 Surgery: admitted 08/13 for gastroenteritis with epigastric pain, n/v and diarrhea. Patient was found to have bacteremia with cx positive for coagulase negative staph. At that time CT scan showed gallstones, minimal gallbladder distention no wall thickening and no pericholecystic fluid. Patient w as subsequently found to have elevated troponins on 08/16, was diagnosed with IA seen by cardiology with the plan to go to phlebotomist medical lab assistant when active infection resolved. Assessment : with cholelithiasis possible cholecystitis 08/17 ID: repeat blood cultures negative thus far previous blood c/s could be contaminant ? The patient's Clinical Indicators include: - Query created by: Amber Aguilar on 08/19/2018 12:37 PM Electronically signed by: Meghan Gore MD 08/19/2018 10:42 PM
--- NOTE | 2018-08-19 22:54 | CP.PCM.PN ---
Subjective - Date & Time of Evaluation Date of Evaluation: 08/19/18 Time of Evaluation: 12:25 - Subjective Subjective: Seen and Examined at the bed side. 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 Several minutes later, Jeana Doe called again for Asystole after Hypotension to 60/38 and Bradycardia . Given epinephrine x 4 and subsequently intubated onto MV, TLC placed and immediately transferred to ICU for further mgmt. Upon arrival to ICU, HR 107 in sinus, BP 121/72, RR 27 on AC 14, TV 550, 100% oxygen and PEEP 5. Ve= 17.0 and PAP 12, SPO2 100%. She is unresponsive post- resuscitation, proximal extremities appear mottled, skin is warm and non-cy anotic, distal pulses are palpable and symmetrical. Objective - Vital Signs/Intake and Output Vital Signs (last 24 hours): Temp Pulse Resp BP Pulse Ox 98.7 F 81 25 H 178/88 H 100 08/19/18 20:00 08/19/18 22:39 08/19/18 22:39 08/19/18 22:39 08/19/18 22:39 Intake and Output: 08/19/18 08/20/18 18:59 06:59 Intake Total 300 409 Output Total 400 Balance -100 409 - Medications Medications: Current Medications Amlodipine Besylate (Norvasc) 10 mg PO DAILY [facility] Last Admin: 08/19/18 08:34 Dose: 10 mg Aspirin (Aspirin) 325 mg PO DAILY [facility] Last Admin: 08/18/18 09:53 Dose: 325 mg Atorvastatin Calcium (Lipitor) 20 mg PO DAILY [facility] Last Admin: 08/18/18 09:26 Dose: 20 mg Dextrose (Dextrose 50% Inj) 0 ml IV STAT PRN; Protocol PRN Reason: Hypoglycemia Protocol Dextrose (Glutose 15) 0 gm PO ONCE PRN; Protocol PRN Reason: Hypoglycemia Protocol Enoxaparin Sodium (Lovenox) 70 mg SC DAILY [facility]; Protocol Last Admin: 08/19/18 08:34 Dose: 70 mg Glucagon (Glucagen Diagnostic Kit) 0 mg IM STAT PRN; Protocol PRN Reason: Hypoglycemia Protocol Piperacillin Sod/Tazobactam (Sod 2.25 gm/ Sodium Chloride) 100 mls @ 100 mls/hr IVPB Q8 [facility]; Protocol Last Admin: 08/19/18 16:50 Dose: 100 mls/hr Sodium Chloride (Sodium Chloride 0.9%) 1,000 mls @ 100 mls/hr IV .Q10H [facility] Stop: 08/20/18 10:36 Last Admin: 08/19/18 22:46 Dose: 100 mls/hr Norepinephrine Bitartrate 4 mg (/ Dextrose) 254 mls @ 9.53 mls/hr IV .Q24H [facility]; Protocol Vancomycin HCl 1 gm/ Sodium (Chloride) 250 mls @ 166.667 mls/hr IVPB Q48H [facility]; Protocol Propofol (Diprivan) 1,000 mg in 100 mls @ 2.109 mls/hr IV .Q24H [facility]; Protocol Stop: 08/20/18 17:26 Last Admin: 08/19/18 22:35 Dose: 15 mcg/kg/min, 6.328 mls/hr Insulin Human Lispro (Humalog) 0 units SC ACHS [facility]; Protocol Last Admin: 08/19/18 21:12 Dose: Not Given Meclizine HCl (Antivert) 12.5 mg PO DAILY [facility] Last Admin: 08/18/18 09:27 Dose: 12.5 mg Metformin HCl (Glucophage) 1,000 mg PO BID [facility] Last Admin: 08/16/18 09:34 Dose: Not Given Metoprolol Succinate (Toprol Xl) 50 mg PO Q12 [facility] Last Admin: 08/19/18 08:34 Dose: 50 mg Morphine Sulfate (Morphine) 2 mg IVP Q6 PRN PRN Reason: Pain, moderate (4-7) Last Admin: 08/16/18 12:18 Dose: 2 mg Pantoprazole Sodium (Protonix Ec Tab) 40 mg PO DAILY [facility] Last Admin: 08/19/18 16:51 Dose: 40 mg Sucralfate (Carafate Oral Susp) 1 gm PO ACHS [facility] Last Admin: 08/18/18 22:07 Dose: 1 gm - Labs Labs: 08/19/18 04:45 08/19/18 04:45 - Constitutional Appears: In Acute Distress - ENT Exam Additional comments: Intubated and sedated on MV - Cardiovascular Exam Cardiovascular Exam: +S1, +S2 Assessment and Plan (1) Cardiac arrest Status: Acute (2) Acute respiratory failure Assessment & Plan: on MV Status: Resolved (3) Acute gastroenteritis Status: Resolved (4) Abdominal pain in female Status: Resolved (5) Type 2 diabetes mellitus with hyperglycemia Status: Chronic (6) NSTEMI (non-ST elevated myocardial infarction) Status: Acute (7) Gallbladder disease Status: Acute (8) AURORA (acute kidney injury) Status: Acute - Assessment and Plan (Free Text) Plan: Continue Treatment as per Radiology Ct Technologist Recommendation Pulmonary Consult Hold All BP Medication Cardiology Follow Up
[2018-08-20 04:41] LABS: ABG ALLEN TEST YES; ARTERIAL BLOOD GAS HCO3 20.3 mmol/L (21-28); ARTERIAL BLOOD GAS HEMOGLOBIN 9.2 g/dL (11.7-17.4); ARTERIAL BLOOD GAS O2 CAPACITY 13.1 mL/dL (16-24); ARTERIAL BLOOD GAS O2 CONTENT 13.1 ML/dL (15-23); ARTERIAL BLOOD GAS O2 SAT 99.9 % (95-98); ARTERIAL BLOOD GAS PCO2 28 mm/Hg (35-45); ARTERIAL BLOOD GAS PH 7.41 (7.35-7.45); ARTERIAL BLOOD GAS PO2 179 mm/Hg (80-100); ARTERIAL BLOOD GAS TCO2 18.6 mmol/L (22-28)
[2018-08-20 05:33] LABS: HEMOGLOBIN 8.9 g/dL (12.0-16.0); MEAN CELL VOLUME 93.2 fl (81.0-99.0); MEAN CORPUSCULAR HEMOGLOBIN 31.4 pg (27.0-31.0); MEAN CORPUSCULAR HGB CONC 33.7 g/dL (33.0-37.0); RBC 2.85 Mil/uL (3.80-5.20); RED CELL DISTRIBUTION WIDTH 13.3 % (11.5-14.5); WHITE BLOOD COUNT 16.2 K/uL (4.8-10.8)
[2018-08-20 06:01] LABS: CALCIUM 7.8 mg/dL (8.4-10.2)
--- NOTE | 2018-08-20 07:28 | CP.PCM.PN ---
Subjective - Date & Time of Evaluation Date of Evaluation: 08/20/18 Time of Evaluation: 06:45 - Subjective Subjective: Surgery progress note for Dr. Whitfield Patient seen and examined this am at bedside. REAGAN per nursing. Yesterday patient had a syncopal episode and code blue while in MRI obtaining HIDA scan. Scan was unable to be completed. patient was moved to ER where another code blue was called for bradycardia and hypotension. Patient was intubated and sedated and moved to ICU. Patient remains sedated on propofol, is arousable and moving all extremities but does not follow commands. Objective - Vital Signs/Intake and Output Vital Signs (last 24 hours): Temp Pulse Resp BP Pulse Ox 98.5 F 61 13 158/52 H 100 08/20/18 04:00 08/20/18 06:49 08/20/18 06:49 08/20/18 06:49 08/20/18 06:49 Intake and Output: 08/20/18 08/20/18 06:59 18:59 Intake Total 1464 Output Total 1800 Balance -336 - Medications Medications: Current Medications Amlodipine Besylate (Norvasc) 10 mg PO DAILY [facility] Last Admin: 08/19/18 08:34 Dose: 10 mg Aspirin (Aspirin) 325 mg PO DAILY [facility] Last Admin: 08/18/18 09:53 Dose: 325 mg Atorvastatin Calcium (Lipitor) 20 mg PO DAILY [facility] Last Admin: 08/18/18 09:26 Dose: 20 mg Dextrose (Dextrose 50% Inj) 0 ml IV STAT PRN; Protocol PRN Reason: Hypoglycemia Protocol Dextrose (Glutose 15) 0 gm PO ONCE PRN; Protocol PRN Reason: Hypoglycemia Protocol Enoxaparin Sodium (Lovenox) 70 mg SC DAILY [facility]; Protocol Last Admin: 08/19/18 08:34 Dose: 70 mg Glucagon (Glucagen Diagnostic Kit) 0 mg IM STAT PRN; Protocol PRN Reason: Hypoglycemia Protocol Piperacillin Sod/Tazobactam (Sod 2.25 gm/ Sodium Chloride) 100 mls @ 100 mls/hr IVPB Q8 [facility]; Protocol Last Admin: 08/20/18 00:15 Dose: 100 mls/hr Sodium Chloride (Sodium Chloride 0.9%) 1,000 mls @ 100 mls/hr IV .Q10H [facility] Stop: 08/20/18 10:36 Last Admin: 08/19/18 22:46 Dose: 100 mls/hr Norepinephrine Bitartrate 4 mg (/ Dextrose) 254 mls @ 9.53 mls/hr IV .Q24H [facility]; Protocol Vancomycin HCl 1 gm/ Sodium (Chloride) 250 mls @ 166.667 mls/hr IVPB Q48H [facility]; Protocol Propofol (Diprivan) 1,000 mg in 100 mls @ 2.109 mls/hr IV .Q24H [facility]; Protocol Stop: 08/20/18 17:26 Last Admin: 08/19/18 22:35 Dose: 15 mcg/kg/min, 6.328 mls/hr Insulin Human Lispro (Humalog) 0 units SC [facility]; Protocol Last Admin: 08/19/18 21:12 Dose: Not Given Meclizine HCl (Antivert) 12.5 mg PO DAILY [facility] Last Admin: 08/18/18 09:27 Dose: 12.5 mg Metformin HCl (Glucophage) 1,000 mg PO BID [facility] Last Admin: 08/16/18 09:34 Dose: Not Given Metoprolol Succinate (Toprol Xl) 50 mg PO Q12 [facility] Last Admin: 08/19/18 08:34 Dose: 50 mg Morphine Sulfate (Morphine) 2 mg IVP Q6 PRN PRN Reason: Pain, moderate (4-7) Last Admin: 08/16/18 12:18 Dose: 2 mg Pantoprazole Sodium (Protonix Ec Tab) 40 mg PO DAILY [facility] Last Admin: 08/19/18 16:51 Dose: 40 mg Sucralfate (Carafate Oral Susp) 1 gm PO [facility] Last Admin: 08/18/18 22:07 Dose: 1 gm - Labs Labs: 08/20/18 04:17 08/20/18 04:17 - Constitutional Appears: Non-toxic, No Acute Distress - Head Exam Head Exam: ATRAUMATIC, NORMOCEPHALIC - ENT Exam ENT Exam: Mucous Membranes Moist - Respiratory Exam Respiratory Exam: NORMAL BREATHING PATTERN. absent: Accessory Muscle Use, Respiratory Distress - Cardiovascular Exam Cardiovascular Exam: REGULAR RHYTHM. absent: Tachycardia - GI/Abdominal Exam GI & Abdominal Exam: Soft. absent: Distended, Guarding, Tenderness - Extremities Exam Extremities Exam: absent: Calf Tenderness, Pedal Edema - Neurological Exam Neurological Exam: Altered, Awake - Skin Skin Exam: Dry, Intact, Normal Color, Warm Assessment and Plan - Assessment and Plan (Free Text) Assessment: 73 yr old female with cholelithiasis Plan: patient may go for HIDA when medically stable continue abx continue IVF wean from ventilator and sedation per ICU management will d/w Dr. Roseann Munguia, PGY 1
[2018-08-20] MEDS: Insulin Lispro (humaLOG) 100 Units/ml Inj SC SCH ×4 (08:28→23:07)
[2018-08-20] MEDS: Pantoprazole 40 mg EC Tab PO SCH (08:29)
[2018-08-20] MEDS: Enoxaparin 80 mg Syringe SC SCH (08:29)
--- NOTE | 2018-08-20 09:00 | CP.CCUPN ---
CCU Subjective - Physician Review Events Since Last Encounter (Free Text): Patient on ventilator, on PRVC TV 400, RR 12, FIO2 45%, opens eyes to verbal stimuli, no fever, no vomiting, events reviewed CCU Objective - Vital Signs / Intake & Output Vital Signs (Last 4 hours): Vital Signs Temp Pulse Resp BP Pulse Ox 08/20/18 08:00 98.9 F 69 17 159/62 H 100 08/20/18 06:49 61 13 158/52 H 100 08/20/18 06:00 66 19 142/84 100 08/20/18 05:00 69 14 167/89 H 100 Intake and Output (Last 8hrs): Intake & Output 08/19/18 08/20/18 08/20/18 22:59 06:59 14:59 Intake Total 709 1055 100 Output Total 400 1800 100 Balance 309 -745 0 Weight 156 lb Intake: IV 600 900 100 Intake, Piggyback 109 155 Oral 0 Tube Feeding 0 Output: Urine 400 1800 100 Urethral (Jin) 900 100 Urine, Voided 400 900 Other: # Bowel Movements 1 1 - Physical Exam Head: Positive for: Atraumatic, Normocephalic Pupils: Positive for: PERRL Conjunctiva: Positive for: Normal Mouth: Positive for: Moist Mucous Membranes Nose (External): Positive for: Atraumatic Neck: Positive for: Normal Range of Motion Respiratory/Chest: Positive for: Rhonchi Cardiovascular: Positive for: Regular Rate and Rhythm Abdomen: Positive for: Normal Bowel Sounds Upper Extremity: Positive for: Normal Inspection Lower Extremity: Positive for: Normal Inspection Neurological: Positive for: Other (on ventilator, opens eyes to verbal stimuli) - Medications Active Medications: Active Medications Generic Name Dose Route Start Last Admin Trade Name Freq PRN Reason Stop Dose Admin Amlodipine Besylate 10 mg 08/19/18 09:00 08/19/18 08:34 Norvasc PO 10 mg DAILY [facility] Administration Aspirin 325 mg 08/16/18 11:45 08/20/18 08:31 Aspirin PO 325 mg DAILY [facility] Administration Atorvastatin Calcium 20 mg 08/13/18 09:00 08/20/18 08:29 Lipitor PO 20 mg DAILY [facility] Administration Dextrose 0 ml 08/13/18 08:17 Dextrose 50% Inj IV STAT PRN Hypoglycemia Protocol Protocol Dextrose 0 gm 08/13/18 08:17 Glutose 15 PO ONCE PRN Hypoglycemia Protocol Protocol Enoxaparin Sodium 70 mg 08/16/18 11:45 08/20/18 08:29 Lovenox SC 70 mg DAILY [facility] Administration Protocol Glucagon 0 mg 08/13/18 08:17 Glucagen Diagnostic Kit IM STAT PRN Hypoglycemia Protocol Protocol Piperacillin Sod/Tazobactam 100 mls @ 100 mls/hr 08/16/18 12:15 08/20/18 08:29 Sod 2.25 gm/ Sodium Chloride IVPB 100 mls/hr Q8 [facility] Administration Protocol Sodium Chloride 1,000 mls @ 100 mls/hr 08/19/18 00:01 08/19/18 22:46 Sodium Chloride 0.9% IV 08/20/18 10:36 100 mls/hr .Q10H [facility] Administration Norepinephrine Bitartrate 4 mg 254 mls @ 9.53 mls/hr 08/19/18 10:30 / Dextrose IV .Q24H [facility] Protocol 2.5 MCG/MIN Vancomycin HCl 1 gm/ Sodium 250 mls @ 166.667 mls/hr 08/19/18 13:15 Chloride IVPB Q48H [facility] Protocol Propofol 1,000 mg in 100 mls @ 2.109 mls/hr 08/19/18 17:30 08/20/18 08:32 Diprivan IV 08/20/18 17:26 20 mcg/kg/min .Q24H [facility] 8.437 mls/hr Titration Protocol 5 MCG/KG/MIN Insulin Human Lispro 0 units 08/13/18 11:30 08/20/18 08:28 Humalog SC 2 u ACHS [facility] Administration Protocol Meclizine HCl 12.5 mg 08/13/18 09:00 08/18/18 09:27 Antivert PO 12.5 mg DAILY [facility] Administration Metformin HCl 1,000 mg 08/13/18 09:00 08/16/18 09:34 Glucophage PO Not Given BID [facility] Metoprolol Succinate 50 mg 08/16/18 21:00 08/19/18 08:34 Toprol Xl PO 50 mg Q12 [facility] Administration Morphine Sulfate 2 mg 08/16/18 12:15 08/16/18 12:18 Morphine IVP 2 mg Q6 PRN Administration Pain, moderate (4-7) Pantoprazole Sodium 40 mg 08/13/18 09:00 08/20/18 08:29 Protonix Ec Tab PO 40 mg DAILY [facility] Administration Sucralfate 1 gm 08/14/18 20:30 08/18/18 22:07 Carafate Oral Susp PO 1 gm ACHS [facility] Administration - Patient Studies Lab Studies: Microbiology Studies 08/19/18 11:11 Gram Stain - Final Sputum 08/14/18 14:30 Blood Culture - Final Blood NO GROWTH AFTER 5 DAYS Gram Stain - Final TEST NOT PERFORMED 08/16/18 12:57 Blood Culture - Preliminary Blood NO GROWTH AFTER 3 DAYS Lab Studies 08/20/18 08/20/18 08/20/18 Range/Units 04:28 04:17 04:17 WBC 16.2 H D (4.8-10.8) K/uL RBC 2.85 L (3.80-5.20) Mil/uL Hgb 8.9 L (12.0-16.0) g/dL Hct 26.5 L (34.0-47.0) % MCV 93.2 (81.0-99.0) fl MCH 31.4 H (27.0-31.0) pg MCHC 33.7 (33.0-37.0) g/dL RDW 13.3 (11.5-14.5) % Plt Count 229 (130-400) K/uL pCO2 (35-45) mm/Hg pO2 (80-100) mm/Hg HCO3 (21-28) mmol/L ABG pH (7.35-7.45) ABG Total CO2 (22-28) mmol/L ABG O2 Saturation (95-98) % ABG O2 Content (15-23) ML/dL ABG Base Excess (-2.0-3.0) mmol/L ABG Hemoglobin (11.7-17.4) g/dL ABG Carboxyhemoglobin (0.5-1.5) % POC ABG HHb (Measured) (0.0-5.0) % ABG Methemoglobin (0.0-3.0) % ABG O2 Capacity (16-24) mL/dL Masoud Test ABG Potassium (3.6-5.2) mmol/L A-a O2 Difference mm/Hg Hgb O2 Saturation (95.0-98.0) % Sodium 144 (132-148) mmol/L Chloride 114 H (98-107) mmol/L Glucose (65-105) mg/dL Lactate (0.7-2.1) mmol/L Vent Mode Mechanical Rate FiO2 % Tidal Volume PEEP Crit Value Called To Crit Value Called By Crit Value Read Back Blood Gas Notified Time Potassium 3.7 (3.6-5.0) MMOL/L Carbon Dioxide 21 L (22-30) mmol/L Anion Gap 13 (10-20) BUN 28 H (7-17) mg/dl Creatinine 1.9 H (0.7-1.2) mg/dl Est GFR ( Amer) 31 Est GFR (Non-Af Amer) 26 POC Glucose (mg/dL) 227 H (65-110) mg/dL Random Glucose 226 H (65-105) mg/dL Calcium 7.8 L (8.4-10.2) mg/dL Arterial Blood Potassium (3.6-5.2) mmol/L Urine Color (YELLOW) Urine Clarity (Clear) Urine pH (5.0-8.0) Ur Specific Allen (1.003-1.030) Urine Protein (NEGATIVE) mg/dL Urine Glucose (UA) (Normal) mg/dL Urine Ketones (NEGATIVE) mg/dL Urine Blood (NEGATIVE) Urine Nitrate (NEGATIVE) Urine Bilirubin (NEGATIVE) Urine Urobilinogen (0.2-1.0) mg/dL Ur Leukocyte Esterase (Negative) Ct/uL Urine RBC (Auto) (0-3) /hpf Urine Microscopic WBC (0-5) /hpf Ur Squamous Epith Cells (0-5) /hpf Uric Acid Crystals (<OCC) /hpf Urine Bacteria (<OCC) 08/20/18 08/19/18 08/19/18 Range/Units 04:15 21:11 17:06 WBC (4.8-10.8) K/uL RBC (3.80-5.20) Mil/uL Hgb (12.0-16.0) g/dL Hct (34.0-47.0) % MCV (81.0-99.0) fl MCH (27.0-31.0) pg MCHC (33.0-37.0) g/dL RDW (11.5-14.5) % Plt Count (130-400) K/uL pCO2 28 L (35-45) mm/Hg pO2 179 H (80-100) mm/Hg HCO3 20.3 L (21-28) mmol/L ABG pH 7.41 (7.35-7.45) ABG Total CO2 18.6 L (22-28) mmol/L ABG O2 Saturation 99.9 H (95-98) % ABG O2 Content 13.1 L (15-23) ML/dL ABG Base Excess -6.0 L (-2.0-3.0) mmol/L ABG Hemoglobin 9.2 L (11.7-17.4) g/dL ABG Carboxyhemoglobin 0.8 (0.5-1.5) % POC ABG HHb (Measured) 0.1 (0.0-5.0) % ABG Methemoglobin 0.9 (0.0-3.0) % ABG O2 Capacity 13.1 L (16-24) mL/dL Masoud Test Yes ABG Potassium (3.6-5.2) mmol/L A-a O2 Difference 107.0 mm/Hg Hgb O2 Saturation 98.2 H (95.0-98.0) % Sodium (132-148) mmol/L Chloride (98-107) mmol/L Glucose (65-105) mg/dL Lactate (0.7-2.1) mmol/L Vent Mode A/c Mechanical Rate 12 FiO2 45.0 % Tidal Volume 400 PEEP 5 Crit Value Called To Crit Value Called By Crit Value Read Back Blood Gas Notified Time Potassium (3.6-5.0) MMOL/L Carbon Dioxide (22-30) mmol/L Anion Gap (10-20) BUN (7-17) mg/dl Creatinine (0.7-1.2) mg/dl Est GFR ( Amer) Est GFR (Non-Af Amer) POC Glucose (mg/dL) 236 H 340 H (65-110) mg/dL Random Glucose (65-105) mg/dL Calcium (8.4-10.2) mg/dL Arterial Blood Potassium (3.6-5.2) mmol/L Urine Color (YELLOW) Urine Clarity (Clear) Urine pH (5.0-8.0) Ur Specific Allen (1.003-1.030) Urine Protein (NEGATIVE) mg/dL Urine Glucose (UA) (Normal) mg/dL Urine Ketones (NEGATIVE) mg/dL Urine Blood (NEGATIVE) Urine Nitrate (NEGATIVE) Urine Bilirubin (NEGATIVE) Urine Urobilinogen (0.2-1.0) mg/dL Ur Leukocyte Esterase (Negative) Ct/uL Urine RBC (Auto) (0-3) /hpf Urine Microscopic WBC (0-5) /hpf Ur Squamous Epith Cells (0-5) /hpf Uric Acid Crystals (<OCC) /hpf Urine Bacteria (<OCC) 08/19/18 08/19/18 08/19/18 Range/Units 11:51 11:18 11:11 WBC (4.8-10.8) K/uL RBC (3.80-5.20) Mil/uL Hgb (12.0-16.0) g/dL Hct (34.0-47.0) % MCV (81.0-99.0) fl MCH (27.0-31.0) pg MCHC (33.0-37.0) g/dL RDW (11.5-14.5) % Plt Count (130-400) K/uL pCO2 32 L (35-45) mm/Hg pO2 140 H (80-100) mm/Hg HCO3 14.4 L (21-28) mmol/L ABG pH 7.22 L (7.35-7.45) ABG Total CO2 14.1 L (22-28) mmol/L ABG O2 Saturation 99.8 H (95-98) % ABG O2 Content (15-23) ML/dL ABG Base Excess -13.5 L (-2.0-3.0) mmol/L ABG Hemoglobin (11.7-17.4) g/dL ABG Carboxyhemoglobin (0.5-1.5) % POC ABG HHb (Measured) (0.0-5.0) % ABG Methemoglobin (0.0-3.0) % ABG O2 Capacity (16-24) mL/dL Masoud Test Yes ABG Potassium 3.7 (3.6-5.2) mmol/L A-a O2 Difference 141.0 mm/Hg Hgb O2 Saturation (95.0-98.0) % Sodium 138.0 (132-148) mmol/L Chloride 108.0 H (98-107) mmol/L Glucose 437 H* D (65-105) mg/dL Lactate 6.0 H* (0.7-2.1) mmol/L Vent Mode Mechanical Rate 12 FiO2 45.0 % Tidal Volume 400 PEEP 5 Crit Value Called To Danna verdin Crit Value Called By 15 Crit Value Read Back Y Blood Gas Notified Time 1356 Potassium (3.6-5.0) MMOL/L Carbon Dioxide (22-30) mmol/L Anion Gap (10-20) BUN (7-17) mg/dl Creatinine (0.7-1.2) mg/dl Est GFR ( Amer) Est GFR (Non-Af Amer) POC Glucose (mg/dL) 377 H (65-110) mg/dL Random Glucose (65-105) mg/dL Calcium (8.4-10.2) mg/dL Arterial Blood Potassium 3.7 (3.6-5.2) mmol/L Urine Color Yellow (YELLOW) Urine Clarity Cloudy (Clear) Urine pH 5.0 (5.0-8.0) Ur Specific Allen 1.014 (1.003-1.030) Urine Protein 100 (NEGATIVE) mg/dL Urine Glucose (UA) 150 (Normal) mg/dL Urine Ketones Negative (NEGATIVE) mg/dL Urine Blood Small (NEGATIVE) Urine Nitrate Negative (NEGATIVE) Urine Bilirubin Negative (NEGATIVE) Urine Urobilinogen 0.2-1.0 (0.2-1.0) mg/dL Ur Leukocyte Esterase Neg (Negative) Ct/uL Urine RBC (Auto) 2 (0-3) /hpf Urine Microscopic WBC 4 (0-5) /hpf Ur Squamous Epith Cells < 1 (0-5) /hpf Uric Acid Crystals Rare (<OCC) /hpf Urine Bacteria Rare (<OCC) 08/19/18 Range/Units 09:04 WBC (4.8-10.8) K/uL RBC (3.80-5.20) Mil/uL Hgb (12.0-16.0) g/dL Hct (34.0-47.0) % MCV (81.0-99.0) fl MCH (27.0-31.0) pg MCHC (33.0-37.0) g/dL RDW (11.5-14.5) % Plt Count (130-400) K/uL pCO2 (35-45) mm/Hg pO2 (80-100) mm/Hg HCO3 (21-28) mmol/L ABG pH (7.35-7.45) ABG Total CO2 (22-28) mmol/L ABG O2 Saturation (95-98) % ABG O2 Content (15-23) ML/dL ABG Base Excess (-2.0-3.0) mmol/L ABG Hemoglobin (11.7-17.4) g/dL ABG Carboxyhemoglobin (0.5-1.5) % POC ABG HHb (Measured) (0.0-5.0) % ABG Methemoglobin (0.0-3.0) % ABG O2 Capacity (16-24) mL/dL Masoud Test ABG Potassium (3.6-5.2) mmol/L A-a O2 Difference mm/Hg Hgb O2 Saturation (95.0-98.0) % Sodium (132-148) mmol/L Chloride (98-107) mmol/L Glucose (65-105) mg/dL Lactate (0.7-2.1) mmol/L Vent Mode Mechanical Rate FiO2 % Tidal Volume PEEP Crit Value Called To Crit Value Called By Crit Value Read Back Blood Gas Notified Time Potassium (3.6-5.0) MMOL/L Carbon Dioxide (22-30) mmol/L Anion Gap (10-20) BUN (7-17) mg/dl Creatinine (0.7-1.2) mg/dl Est GFR ( Amer) Est GFR (Non-Af Amer) POC Glucose (mg/dL) 212 H (65-110) mg/dL Random Glucose (65-105) mg/dL Calcium (8.4-10.2) mg/dL Arterial Blood Potassium (3.6-5.2) mmol/L Urine Color (YELLOW) Urine Clarity (Clear) Urine pH (5.0-8.0) Ur Specific Allen (1.003-1.030) Urine Protein (NEGATIVE) mg/dL Urine Glucose (UA) (Normal) mg/dL Urine Ketones (NEGATIVE) mg/dL Urine Blood (NEGATIVE) Urine Nitrate (NEGATIVE) Urine Bilirubin (NEGATIVE) Urine Urobilinogen (0.2-1.0) mg/dL Ur Leukocyte Esterase (Negative) Ct/uL Urine RBC (Auto) (0-3) /hpf Urine Microscopic WBC (0-5) /hpf Ur Squamous Epith Cells (0-5) /hpf Uric Acid Crystals (<OCC) /hpf Urine Bacteria (<OCC) Laboratory Results - last 24 hr 08/19/18 08/19/18 08/19/18 09:04 11:11 11:18 WBC RBC Hgb Hct MCV MCH MCHC RDW Plt Count pCO2 pO2 HCO3 ABG pH ABG Total CO2 ABG O2 Saturation ABG O2 Content ABG Base Excess ABG Hemoglobin ABG Carboxyhemoglobin POC ABG HHb (Measured) ABG Methemoglobin ABG O2 Capacity Masoud Test ABG Potassium A-a O2 Difference Hgb O2 Saturation Sodium Chloride Glucose Lactate Vent Mode Mechanical Rate FiO2 Tidal Volume PEEP Crit Value Called To Crit Value Called By Crit Value Read Back Blood Gas Notified Time Potassium Carbon Dioxide Anion Gap BUN Creatinine Est GFR ( Amer) Est GFR (Non-Af Amer) POC Glucose (mg/dL) 212 H 377 H Random Glucose Calcium Arterial Blood Potassium Urine Color Yellow Urine Clarity Cloudy Urine pH 5.0 Ur Specific Allen 1.014 Urine Protein 100 Urine Glucose (UA) 150 Urine Ketones Negative Urine Blood Small Urine Nitrate Negative Urine Bilirubin Negative Urine Urobilinogen 0.2-1.0 Ur Leukocyte Esterase Neg Urine RBC (Auto) 2 Urine Microscopic WBC 4 Ur Squamous Epith Cells < 1 Uric Acid Crystals Rare Urine Bacteria Rare 08/19/18 08/19/18 08/19/18 11:51 17:06 21:11 WBC RBC Hgb Hct MCV MCH MCHC RDW Plt Count pCO2 32 L pO2 140 H HCO3 14.4 L ABG pH 7.22 L ABG Total CO2 14.1 L ABG O2 Saturation 99.8 H ABG O2 Content ABG Base Excess -13.5 L ABG Hemoglobin ABG Carboxyhemoglobin POC ABG HHb (Measured) ABG Methemoglobin ABG O2 Capacity Masoud Test Yes ABG Potassium 3.7 A-a O2 Difference 141.0 Hgb O2 Saturation Sodium 138.0 Chloride 108.0 H Glucose 437 H* D Lactate 6.0 H* Vent Mode Mechanical Rate 12 FiO2 45.0 Tidal Volume 400 PEEP 5 Crit Value Called To Danna verdin Crit Value Called By 15 Crit Value Read Back Y Blood Gas Notified Time 1356 Potassium Carbon Dioxide Anion Gap BUN Creatinine Est GFR ( Amer) Est GFR (Non-Af Amer) POC Glucose (mg/dL) 340 H 236 H Random Glucose Calcium Arterial Blood Potassium 3.7 Urine Color Urine Clarity Urine pH Ur Specific Allen Urine Protein Urine Glucose (UA) Urine Ketones Urine Blood Urine Nitrate Urine Bilirubin Urine Urobilinogen Ur Leukocyte Esterase Urine RBC (Auto) Urine Microscopic WBC Ur Squamous Epith Cells Uric Acid Crystals Urine Bacteria 08/20/18 08/20/18 08/20/18 04:15 04:17 04:17 WBC 16.2 H D RBC 2.85 L Hgb 8.9 L Hct 26.5 L MCV 93.2 MCH 31.4 H MCHC 33.7 RDW 13.3 Plt Count 229 pCO2 28 L pO2 179 H HCO3 20.3 L ABG pH 7.41 ABG Total CO2 18.6 L ABG O2 Saturation 99.9 H ABG O2 Content 13.1 L ABG Base Excess -6.0 L ABG Hemoglobin 9.2 L ABG Carboxyhemoglobin 0.8 POC ABG HHb (Measured) 0.1 ABG Methemoglobin 0.9 ABG O2 Capacity 13.1 L Masoud Test Yes ABG Potassium A-a O2 Difference 107.0 Hgb O2 Saturation 98.2 H Sodium 144 Chloride 114 H Glucose Lactate Vent Mode A/c Mechanical Rate 12 FiO2 45.0 Tidal Volume 400 PEEP 5 Crit Value Called To Crit Value Called By Crit Value Read Back Blood Gas Notified Time Potassium 3.7 Carbon Dioxide 21 L Anion Gap 13 BUN 28 H Creatinine 1.9 H Est GFR ( Amer) 31 Est GFR (Non-Af Amer) 26 POC Glucose (mg/dL) Random Glucose 226 H Calcium 7.8 L Arterial Blood Potassium Urine Color Urine Clarity Urine pH Ur Specific Allen Urine Protein Urine Glucose (UA) Urine Ketones Urine Blood Urine Nitrate Urine Bilirubin Urine Urobilinogen Ur Leukocyte Esterase Urine RBC (Auto) Urine Microscopic WBC Ur Squamous Epith Cells Uric Acid Crystals Urine Bacteria 08/20/18 04:28 WBC RBC Hgb Hct MCV MCH MCHC RDW Plt Count pCO2 pO2 HCO3 ABG pH ABG Total CO2 ABG O2 Saturation ABG O2 Content ABG Base Excess ABG Hemoglobin ABG Carboxyhemoglobin POC ABG HHb (Measured) ABG Methemoglobin ABG O2 Capacity Masoud Test ABG Potassium A-a O2 Difference Hgb O2 Saturation Sodium Chloride Glucose Lactate Vent Mode Mechanical Rate FiO2 Tidal Volume PEEP Crit Value Called To Crit Value Called By Crit Value Read Back Blood Gas Notified Time Potassium Carbon Dioxide Anion Gap BUN Creatinine Est GFR ( Amer) Est GFR (Non-Af Amer) POC Glucose (mg/dL) 227 H Random Glucose Calcium Arterial Blood Potassium Urine Color Urine Clarity Urine pH Ur Specific Allen Urine Protein Urine Glucose (UA) Urine Ketones Urine Blood Urine Nitrate Urine Bilirubin Urine Urobilinogen Ur Leukocyte Esterase Urine RBC (Auto) Urine Microscopic WBC Ur Squamous Epith Cells Uric Acid Crystals Urine Bacteria Fingerstick Blood Sugar Results: 227 Critical Care Progress Note - Nutrition Nutrition: Nutrition Category Date Time Status NPO Diet [DIET] Diets 08/19/18 Breakfast Active Assessment/Plan - Assessment and Plan (Free Text) Assessment: A/P Cardiac arrest s/p resuscitation, respiratory failure, CAD, [place], DV, sepsis, GB / biliary tract disease, DM, [place] - Ventilatory support - Pulmonary toilets - Continue meds - Cardiology follow up - Follow up labs Critical care 40 min
[2018-08-20] MEDS: Propofol 10 mg/ml 1,000 MG/100 ML VIAL IV SCH ×2 (09:41→16:40)
--- NOTE | 2018-08-20 10:28 | RAD ---
Date of service: 08/20/2018 HISTORY: intubated COMPARISON: Comparison chest 08/19/2018 FINDINGS: ETT tip lies approximately 1.9 cm above kevon. In situ NGT, the tip of which has not been included on this film though distal aspect does lie well below EG junction near midline. LUNGS: Continued improvement right apical/upper lobe infiltrate. There may also be some mild right basilar atelectasis PLEURA: No significant pleural effusion identified, no pneumothorax apparent. CARDIOVASCULAR: Aortic atherosclerotic calcification present. Cardiomegaly.. OSSEOUS STRUCTURES: No significant abnormalities. VISUALIZED UPPER ABDOMEN: Normal. OTHER FINDINGS: None. IMPRESSION: Continued improvement right apical/upper lobe infiltrate. Suspect mild right basilar atelectasis
--- NOTE | 2018-08-20 12:21 | CP.PCM.PN ---
Subjective - Date & Time of Evaluation Date of Evaluation: 08/20/18 Time of Evaluation: 12:19 - Subjective Subjective: General Surgery Pt seen and examined this AM. Pt intubated and restrained. On propofol. Labs and vitals noted PE Gen: Pt laying in bed, intubated, (+) OGT in place Skin: warm and dry Cardio: s1s2 RRR Lungs: CTA bilaterally in anterior lung bertrand Abd: Soft, (-) distention Extr: (-) swelling or erythema. A/P UT, Abdominal pain, gastritis, cholelithiasis r/o cholecystitis HIDA scan on hold until pt is stable Continue management as per medical/ICU teams When HIDA is completed, if shows (+) cholecystitis then will need cholecys tostomy tube since pt is a poor surgical candidate at this time. Objective - Vital Signs/Intake and Output Vital Signs (last 24 hours): Temp Pulse Resp BP Pulse Ox 98.9 F 77 18 176/75 H 100 08/20/18 08:00 08/20/18 10:59 08/20/18 10:59 08/20/18 10:59 08/20/18 10:59 Intake and Output: 08/20/18 08/20/18 06:59 18:59 Intake Total 1464 850 Output Total 1800 250 Balance -336 600 - Medications Medications: Current Medications Amlodipine Besylate (Norvasc) 10 mg PO DAILY [facility] Last Admin: 08/19/18 08:34 Dose: 10 mg Aspirin (Aspirin) 325 mg PO DAILY [facility] Last Admin: 08/20/18 08:31 Dose: 325 mg Atorvastatin Calcium (Lipitor) 20 mg PO DAILY [facility] Last Admin: 08/20/18 08:29 Dose: 20 mg Dextrose (Dextrose 50% Inj) 0 ml IV STAT PRN; Protocol PRN Reason: Hypoglycemia Protocol Dextrose (Glutose 15) 0 gm PO ONCE PRN; Protocol PRN Reason: Hypoglycemia Protocol Enoxaparin Sodium (Lovenox) 70 mg SC DAILY [facility]; Protocol Last Admin: 08/20/18 08:29 Dose: 70 mg Glucagon (Glucagen Diagnostic Kit) 0 mg IM STAT PRN; Protocol PRN Reason: Hypoglycemia Protocol Piperacillin Sod/Tazobactam (Sod 2.25 gm/ Sodium Chloride) 100 mls @ 100 mls/hr IVPB Q8 [facility]; Protocol Last Admin: 08/20/18 08:29 Dose: 100 mls/hr Vancomycin HCl 1 gm/ Sodium (Chloride) 250 mls @ 166.667 mls/hr IVPB Q48H [facility]; Protocol Propofol (Diprivan) 1,000 mg in 100 mls @ 2.109 mls/hr IV .Q24H [facility]; Protocol Stop: 08/20/18 17:26 Last Titration: 08/20/18 11:01 Dose: 35 mcg/kg/min, 14.764 mls/hr Insulin Human Lispro (Humalog) 0 units SC [facility]; Protocol Last Admin: 08/20/18 12:13 Dose: 1 u Meclizine HCl (Antivert) 12.5 mg PO DAILY [facility] Last Admin: 08/18/18 09:27 Dose: 12.5 mg Metformin HCl (Glucophage) 1,000 mg PO BID [facility] Last Admin: 08/16/18 09:34 Dose: Not Given Metoprolol Succinate (Toprol Xl) 50 mg PO Q12 [facility] Last Admin: 08/19/18 08:34 Dose: 50 mg Pantoprazole Sodium (Protonix Ec Tab) 40 mg PO DAILY [facility] Last Admin: 08/20/18 08:29 Dose: 40 mg Sucralfate (Carafate Oral Susp) 1 gm PO [facility] Last Admin: 08/18/18 22:07 Dose: 1 gm - Labs Labs: 08/20/18 04:17 08/20/18 04:17
--- NOTE | 2018-08-20 13:18 | CP.PCM.PN ---
Subjective - Date & Time of Evaluation Date of Evaluation: 08/20/18 Time of Evaluation: 09:00 - Subjective Subjective: intubated s/p cardiac arrest IV rx in progress sedated Objective - Vital Signs/Intake and Output Vital Signs (last 24 hours): Temp Pulse Resp BP Pulse Ox 98.9 F 68 18 176/75 H 100 08/20/18 12:00 08/20/18 12:00 08/20/18 12:00 08/20/18 10:59 08/20/18 12:00 Intake and Output: 08/20/18 08/20/18 06:59 18:59 Intake Total 1464 850 Output Total 1800 250 Balance -336 600 - Medications Medications: Current Medications Amlodipine Besylate (Norvasc) 10 mg PO DAILY [facility] Last Admin: 08/19/18 08:34 Dose: 10 mg Aspirin (Aspirin) 325 mg PO DAILY [facility] Last Admin: 08/20/18 08:31 Dose: 325 mg Atorvastatin Calcium (Lipitor) 20 mg PO DAILY [facility] Last Admin: 08/20/18 08:29 Dose: 20 mg Dextrose (Dextrose 50% Inj) 0 ml IV STAT PRN; Protocol PRN Reason: Hypoglycemia Protocol Dextrose (Glutose 15) 0 gm PO ONCE PRN; Protocol PRN Reason: Hypoglycemia Protocol Enoxaparin Sodium (Lovenox) 70 mg SC DAILY [facility]; Protocol Last Admin: 08/20/18 08:29 Dose: 70 mg Glucagon (Glucagen Diagnostic Kit) 0 mg IM STAT PRN; Protocol PRN Reason: Hypoglycemia Protocol Piperacillin Sod/Tazobactam (Sod 2.25 gm/ Sodium Chloride) 100 mls @ 100 mls/hr IVPB Q8 [facility]; Protocol Last Admin: 08/20/18 08:29 Dose: 100 mls/hr Vancomycin HCl 1 gm/ Sodium (Chloride) 250 mls @ 166.667 mls/hr IVPB Q48H [facility]; Protocol Propofol (Diprivan) 1,000 mg in 100 mls @ 2.109 mls/hr IV .Q24H [facility]; Protocol Stop: 08/20/18 17:26 Last Titration: 08/20/18 11:01 Dose: 35 mcg/kg/min, 14.764 mls/hr Insulin Human Lispro (Humalog) 0 units SC ACHS [facility]; Protocol Last Admin: 08/20/18 12:13 Dose: 1 u Meclizine HCl (Antivert) 12.5 mg PO DAILY [facility] Last Admin: 08/18/18 09:27 Dose: 12.5 mg Metformin HCl (Glucophage) 1,000 mg PO BID [facility] Last Admin: 08/16/18 09:34 Dose: Not Given Metoprolol Succinate (Toprol Xl) 50 mg PO Q12 [facility] Last Admin: 08/19/18 08:34 Dose: 50 mg Pantoprazole Sodium (Protonix Ec Tab) 40 mg PO DAILY [facility] Last Admin: 08/20/18 08:29 Dose: 40 mg Sucralfate (Carafate Oral Susp) 1 gm PO ACHS [facility] Last Admin: 08/18/18 22:07 Dose: 1 gm - Labs Labs: 08/20/18 04:17 08/20/18 04:17 - Constitutional Appears: Confused, Chronically Ill - Head Exam Head Exam: NORMOCEPHALIC - Eye Exam Eye Exam: absent: Scleral icterus - ENT Exam ENT Exam: Mucous Membranes Dry - Neck Exam Neck Exam: absent: Lymphadenopathy - Respiratory Exam Respiratory Exam: Decreased Breath Sounds - Cardiovascular Exam Cardiovascular Exam: REGULAR RHYTHM - GI/Abdominal Exam GI & Abdominal Exam: Distended, Soft - Rectal Exam Rectal Exam: Deferred - Exam Exam: NORMAL INSPECTION - Extremities Exam Extremities Exam: absent: Pedal Edema - Back Exam Back Exam: absent: CVA tenderness (L), CVA tenderness (R) - Neurological Exam Neurological Exam: Altered - Psychiatric Exam Psychiatric exam: Depressed - Skin Skin Exam: Dry Assessment and Plan (1) Dehydration Status: Acute (2) NSTEMI (non-ST elevated myocardial infarction) Status: Acute (3) Nausea & vomiting Status: Acute (4) Type 2 diabetes mellitus with hyperglycemia Status: Acute (5) Abdominal pain Status: Acute (6) Gallbladder disease Status: Acute (7) Pneumonia Status: Acute - Assessment and Plan (Free Text) Assessment: CXR improving no new positive cultures On IV Vanco/Zosyn poor prognosis possible cholecystostomy when stable
--- NOTE | 2018-08-20 15:55 | CP.PCM.PN ---
Subjective - Date & Time of Evaluation Date of Evaluation: 08/20/18 Time of Evaluation: 15:54 - Subjective Subjective: renal follow up note no events overnight vitals reviewed heent normal op moist no jvd skin normal s1s2 present no resp distress abd soft ao times 3 AURORA/gastroenteritis/dm/htn/acute resp failure/anemia cr bumped today, non oliguric monitor I&Os closely lytes ok , mild acidosis noted monitor for now anemia transfuse prn abx per icu team bp stable volume status stable dm per primary team Objective - Vital Signs/Intake and Output Vital Signs (last 24 hours): Temp Pulse Resp BP Pulse Ox 98.9 F 68 17 123/51 L 100 08/20/18 12:00 08/20/18 15:00 08/20/18 15:00 08/20/18 15:00 08/20/18 15:00 Intake and Output: 08/20/18 08/20/18 06:59 18:59 Intake Total 1464 1050 Output Total 1800 300 Balance -336 750 - Medications Medications: Current Medications Amlodipine Besylate (Norvasc) 10 mg PO DAILY [facility] Last Admin: 08/19/18 08:34 Dose: 10 mg Aspirin (Aspirin) 325 mg PO DAILY [facility] Last Admin: 08/20/18 08:31 Dose: 325 mg Atorvastatin Calcium (Lipitor) 20 mg PO DAILY [facility] Last Admin: 08/20/18 08:29 Dose: 20 mg Dextrose (Dextrose 50% Inj) 0 ml IV STAT PRN; Protocol PRN Reason: Hypoglycemia Protocol Dextrose (Glutose 15) 0 gm PO ONCE PRN; Protocol PRN Reason: Hypoglycemia Protocol Enoxaparin Sodium (Lovenox) 70 mg SC DAILY [facility]; Protocol Last Admin: 08/20/18 08:29 Dose: 70 mg Glucagon (Glucagen Diagnostic Kit) 0 mg IM STAT PRN; Protocol PRN Reason: Hypoglycemia Protocol Piperacillin Sod/Tazobactam (Sod 2.25 gm/ Sodium Chloride) 100 mls @ 100 mls/hr IVPB Q8 [facility]; Protocol Last Admin: 08/20/18 08:29 Dose: 100 mls/hr Vancomycin HCl 1 gm/ Sodium (Chloride) 250 mls @ 166.667 mls/hr IVPB Q48H [facility]; Protocol Propofol (Diprivan) 1,000 mg in 100 mls @ 2.109 mls/hr IV .Q24H [facility]; Protocol Stop: 08/20/18 17:26 Last Titration: 08/20/18 11:01 Dose: 35 mcg/kg/min, 14.764 mls/hr Insulin Human Lispro (Humalog) 0 units SC [facility]; Protocol Last Admin: 08/20/18 12:13 Dose: 1 u Meclizine HCl (Antivert) 12.5 mg PO DAILY [facility] Last Admin: 08/18/18 09:27 Dose: 12.5 mg Metformin HCl (Glucophage) 1,000 mg PO BID [facility] Last Admin: 08/16/18 09:34 Dose: Not Given Metoprolol Succinate (Toprol Xl) 50 mg PO Q12 [facility] Last Admin: 08/19/18 08:34 Dose: 50 mg Pantoprazole Sodium (Protonix Ec Tab) 40 mg PO DAILY [facility] Last Admin: 08/20/18 08:29 Dose: 40 mg Sucralfate (Carafate Oral Susp) 1 gm PO [facility] Last Admin: 08/18/18 22:07 Dose: 1 gm - Labs Labs: 08/20/18 04:17 08/20/18 04:17
[2018-08-20] MEDS ORDERED: Labetalol 5mg/ml (4ml) IVP STA (20:56)
[2018-08-20 23:51] VITALS: BMI 28.0
[2018-08-21] MEDS: Propofol 10 mg/ml 1,000 MG/100 ML VIAL IV SCH ×3 (00:16→13:55)
--- NOTE | 2018-08-21 01:17 | CP.PCM.PN ---
Subjective - Date & Time of Evaluation Date of Evaluation: 08/20/18 Time of Evaluation: 07:20 - Subjective Subjective: Seen and examined at the bed side. Intubated and Sedated with Propofol. On MV FIo2 30%. D/w the Heater Helper about CPAP trial, and possible extubation. Objective - Vital Signs/Intake and Output Vital Signs (last 24 hours): Temp Pulse Resp BP Pulse Ox 100.6 F H 71 19 164/56 H 100 08/20/18 19:47 08/20/18 19:47 08/20/18 19:47 08/20/18 19:47 08/20/18 19:47 Intake and Output: 08/20/18 08/21/18 18:59 06:59 Intake Total 1550 684 Output Total 450 Balance 1100 684 - Medications Medications: Current Medications Amlodipine Besylate (Norvasc) 10 mg PO DAILY [facility] Last Admin: 08/19/18 08:34 Dose: 10 mg Aspirin (Aspirin Chewable) 81 mg PO DAILY [facility] Atorvastatin Calcium (Lipitor) 20 mg PO DAILY [facility] Last Admin: 08/20/18 08:29 Dose: 20 mg Dextrose (Dextrose 50% Inj) 0 ml IV STAT PRN; Protocol PRN Reason: Hypoglycemia Protocol Dextrose (Glutose 15) 0 gm PO ONCE PRN; Protocol PRN Reason: Hypoglycemia Protocol Enoxaparin Sodium (Lovenox) 70 mg SC DAILY [facility]; Protocol Last Admin: 08/20/18 08:29 Dose: 70 mg Glucagon (Glucagen Diagnostic Kit) 0 mg IM STAT PRN; Protocol PRN Reason: Hypoglycemia Protocol Hydralazine HCl (Apresoline) 20 mg IV Q6 PRN PRN Reason: HYPERTENSION SBP > 170 Piperacillin Sod/Tazobactam (Sod 2.25 gm/ Sodium Chloride) 100 mls @ 100 mls/hr IVPB Q8 [facility]; Protocol Last Admin: 08/20/18 16:20 Dose: 100 mls/hr Vancomycin HCl 1 gm/ Sodium (Chloride) 250 mls @ 166.667 mls/hr IVPB Q48H [facility]; Protocol Propofol (Diprivan) 1,000 mg in 100 mls @ 15.05 mls/hr IV .Q6H39M [facility]; Protocol Stop: 08/22/18 00:07 Last Admin: 08/21/18 00:16 Dose: 35 mcg/kg/min, 15.05 mls/hr Insulin Human Lispro (Humalog) 0 units SC [facility]; Protocol Last Admin: 08/20/18 23:07 Dose: Not Given Meclizine HCl (Antivert) 12.5 mg PO DAILY [facility] Last Admin: 08/18/18 09:27 Dose: 12.5 mg Metformin HCl (Glucophage) 1,000 mg PO BID [facility] Last Admin: 08/16/18 09:34 Dose: Not Given Metoprolol Succinate (Toprol Xl) 50 mg PO Q12 [facility] Last Admin: 08/19/18 08:34 Dose: 50 mg Pantoprazole Sodium (Protonix Ec Tab) 40 mg PO DAILY [facility] Last Admin: 08/20/18 08:29 Dose: 40 mg Sucralfate (Carafate Oral Susp) 1 gm PO [facility] Last Admin: 08/18/18 22:07 Dose: 1 gm - Labs Labs: 08/20/18 04:17 08/20/18 04:17 Assessment and Plan (1) Acute gastroenteritis Status: Resolved (2) Hypertensive urgency Status: Resolved (3) Abdominal pain in female Status: Acute (4) Dizziness Status: Acute (5) Type 2 diabetes mellitus with hyperglycemia Status: Acute (6) NSTEMI (non-ST elevated myocardial infarction) Status: Acute (7) Gallbladder disease Status: Acute (8) AURORA (acute kidney injury) Status: Acute (9) Cardiac arrest Status: Acute (10) Acute respiratory failure Status: Acute (11) DVT (deep venous thrombosis) Status: Acute (12) Severe anemia Status: Acute (13) Aspiration pneumonia Status: Acute - Assessment and Plan (Free Text) Plan: Continue MV IV Abx IVF Monitor Renal Function Closely Monitor Vanco T or switch to Zyvox ID, Pulmonary, perforator and telecommunication equipment repairer onboard.
[2018-08-21 04:18] LABS: ABG ALLEN TEST YES; ARTERIAL BLOOD GAS HCO3 19.4 mmol/L (21-28); ARTERIAL BLOOD GAS HEMOGLOBIN 7.7 g/dL (11.7-17.4); ARTERIAL BLOOD GAS O2 CAPACITY 11.2 mL/dL (16-24); ARTERIAL BLOOD GAS O2 CONTENT 11.3 ML/dL (15-23); ARTERIAL BLOOD GAS O2 SAT 100.7 % (95-98); ARTERIAL BLOOD GAS PCO2 31 mm/Hg (35-45); ARTERIAL BLOOD GAS PH 7.36 (7.35-7.45); ARTERIAL BLOOD GAS PO2 216 mm/Hg (80-100); ARTERIAL BLOOD GAS TCO2 18.5 mmol/L (22-28)
[2018-08-21 05:15] LABS: HEMOGLOBIN 7.2 g/dL (12.0-16.0); MEAN CELL VOLUME 93.8 fl (81.0-99.0); RBC 2.33 Mil/uL (3.80-5.20); RED CELL DISTRIBUTION WIDTH 13.6 % (11.5-14.5); WHITE BLOOD COUNT 13.6 K/uL (4.8-10.8)
[2018-08-21 06:14] LABS: ALB/GLOB RATIO 0.9 (1.0-2.1); ALBUMIN 2.7 g/dL (3.5-5.0); CALCIUM 7.6 mg/dL (8.4-10.2)
[2018-08-21 06:18] LABS: TROPONIN I 0.297 ng/mL (0.00-0.120)
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
[2018-08-21] MEDS: Insulin Lispro (humaLOG) 100 Units/ml Inj SC SCH ×4 (09:20→22:07)
[2018-08-21] MEDS: Pantoprazole 40 mg EC Tab PO SCH (09:38)
[2018-08-21] MEDS: Enoxaparin 80 mg Syringe SC SCH (09:46)
[2018-08-21 10:07] LABS: HEMOGLOBIN 9.2 g/dL (12.0-16.0); MEAN CELL VOLUME 96.2 fl (81.0-99.0); MEAN CORPUSCULAR HEMOGLOBIN 30.9 pg (27.0-31.0); MEAN CORPUSCULAR HGB CONC 32.1 g/dL (33.0-37.0); RBC 2.97 Mil/uL (3.80-5.20); RED CELL DISTRIBUTION WIDTH 13.8 % (11.5-14.5); WHITE BLOOD COUNT 12.7 K/uL (4.8-10.8)
--- NOTE | 2018-08-21 10:21 | RAD ---
Date of service: 08/21/2018 HISTORY: intubated COMPARISON: Comparison chest 08/20/2018 FINDINGS: In situ ETT, the tip of which lies 2.2 cm above kevon. NGT is present, the tip which has not been included on this film though does lie well below EG junction. LUNGS: Patchy infiltrate again seen in the seen throughout the upper/mid and lower lung bertrand. Suspect mild left basilar atelectasis. Linear atelectasis seen in both mid lung bertrand. PLEURA: Questionable small left effusion. No pneumothorax apparent. CARDIOVASCULAR: Aortic atherosclerotic calcification present. Heart appears enlarged. No pulmonary vascular congestion. OSSEOUS STRUCTURES: No significant abnormalities. VISUALIZED UPPER ABDOMEN: Normal. OTHER FINDINGS: None. IMPRESSION: Patchy infiltrate again seen in the seen throughout the upper/mid and lower lung bertrand. Suspect mild left basilar atelectasis. Linear atelectasis seen in both mid lung bertrand. Questionable small effusion
[2018-08-21] MEDS: Sodium Chloride 0.9% 1,000 ML IV SCH (12:43)
[2018-08-22] MEDS: Propofol 10 mg/ml 1,000 MG/100 ML VIAL IV SCH ×3 (00:21→18:28)
[2018-08-22] MEDS: Sodium Chloride 0.9% 1,000 ML IV SCH (00:22)
--- NOTE | 2018-08-22 02:41 | CP.PCM.PN ---
Subjective - Date & Time of Evaluation Date of Evaluation: 08/21/18 Time of Evaluation: 15:00 - Subjective Subjective: Seen and examined at the bed side. Intubated and Sedated with Propofol. On MV FIo2 30%. D/w the Marine Fire Fighter about CPAP trial, and possible extubation. Objective - Vital Signs/Intake and Output Vital Signs (last 24 hours): Temp Pulse Resp BP Pulse Ox 99.2 F 82 17 151/63 H 100 08/22/18 00:00 08/22/18 01:00 08/22/18 01:00 08/22/18 01:00 08/22/18 01:00 Intake and Output: 08/21/18 08/22/18 18:59 06:59 Intake Total 1550 700 Output Total 500 Balance 1050 700 - Medications Medications: Current Medications Amlodipine Besylate (Norvasc) 10 mg PO DAILY [facility] Last Admin: 08/19/18 08:34 Dose: 10 mg Aspirin (Aspirin Chewable) 81 mg PO DAILY [facility] Last Admin: 08/21/18 09:43 Dose: 81 mg Atorvastatin Calcium (Lipitor) 20 mg PO DAILY [facility] Last Admin: 08/21/18 09:21 Dose: 20 mg Dextrose (Dextrose 50% Inj) 0 ml IV STAT PRN; Protocol PRN Reason: Hypoglycemia Protocol Dextrose (Glutose 15) 0 gm PO ONCE PRN; Protocol PRN Reason: Hypoglycemia Protocol Enoxaparin Sodium (Lovenox) 70 mg SC DAILY [facility]; Protocol Last Admin: 08/21/18 09:46 Dose: 70 mg Glucagon (Glucagen Diagnostic Kit) 0 mg IM STAT PRN; Protocol PRN Reason: Hypoglycemia Protocol Hydralazine HCl (Apresoline) 20 mg IV Q6 PRN PRN Reason: HYPERTENSION SBP > 170 Last Admin: 08/21/18 05:24 Dose: 20 mg Piperacillin Sod/Tazobactam (Sod 2.25 gm/ Sodium Chloride) 100 mls @ 100 mls/hr IVPB Q8 [facility]; Protocol Last Admin: 08/22/18 00:16 Dose: 100 mls/hr Vancomycin HCl 1 gm/ Sodium (Chloride) 250 mls @ 166.667 mls/hr IVPB Q48H [facility]; Protocol Last Admin: 08/21/18 12:45 Dose: 166.667 mls/hr Propofol (Diprivan) 1,000 mg in 100 mls @ 11.022 mls/hr IV .Q9H5M [facility]; Protocol Stop: 08/23/18 00:16 Last Admin: 08/22/18 00:21 Dose: 25 mcg/kg/min, 11.022 mls/hr Sodium Chloride (Sodium Chloride 0.9%) 1,000 mls @ 100 mls/hr IV .Q10H [facility] Stop: 08/23/18 00:16 Last Admin: 08/22/18 00:22 Dose: 100 mls/hr Insulin Human Lispro (Humalog) 0 units SC [facility]; Protocol Last Admin: 08/21/18 22:07 Dose: Not Given Meclizine HCl (Antivert) 12.5 mg PO DAILY [facility] Last Admin: 08/18/18 09:27 Dose: 12.5 mg Metformin HCl (Glucophage) 1,000 mg PO BID [facility] Last Admin: 08/16/18 09:34 Dose: Not Given Metoprolol Succinate (Toprol Xl) 50 mg PO Q12 [facility] Last Admin: 08/19/18 08:34 Dose: 50 mg Pantoprazole Sodium (Protonix Ec Tab) 40 mg PO DAILY [facility] Last Admin: 08/21/18 09:38 Dose: 40 mg Sucralfate (Carafate Oral Susp) 1 gm PO [facility] Last Admin: 08/18/18 22:07 Dose: 1 gm - Labs Labs: 08/21/18 09:00 08/21/18 04:30 Assessment and Plan (1) Acute gastroenteritis Status: Resolved (2) Hypertensive urgency Status: Resolved (3) Abdominal pain in female Status: Resolved (4) Dizziness Status: Acute (5) Type 2 diabetes mellitus with hyperglycemia Status: Chronic (6) NSTEMI (non-ST elevated myocardial infarction) Status: Acute (7) Gallbladder disease Status: Acute (8) AURORA (acute kidney injury) Assessment & Plan: Continue Current Care Status: Acute
[2018-08-22 05:31] LABS: ABG ALLEN TEST YES; ARTERIAL BLOOD GAS HCO3 18.1 mmol/L (21-28); ARTERIAL BLOOD GAS HEMOGLOBIN 8.2 g/dL (11.7-17.4); ARTERIAL BLOOD GAS O2 CAPACITY 11.4 mL/dL (16-24); ARTERIAL BLOOD GAS O2 CONTENT 11.2 ML/dL (15-23); ARTERIAL BLOOD GAS O2 SAT 98.4 % (95-98); ARTERIAL BLOOD GAS PCO2 32 mm/Hg (35-45); ARTERIAL BLOOD GAS PH 7.32 (7.35-7.45); ARTERIAL BLOOD GAS PO2 80 mm/Hg (80-100); ARTERIAL BLOOD GAS TCO2 17.5 mmol/L (22-28)
[2018-08-22 05:40] LABS: HEMOGLOBIN 6.9 g/dL (12.0-16.0); MEAN CELL VOLUME 94.7 fl (81.0-99.0); MEAN CORPUSCULAR HEMOGLOBIN 30.8 pg (27.0-31.0); MEAN CORPUSCULAR HGB CONC 32.5 g/dL (33.0-37.0); RBC 2.23 Mil/uL (3.80-5.20); RED CELL DISTRIBUTION WIDTH 13.8 % (11.5-14.5); WHITE BLOOD COUNT 13.6 K/uL (4.8-10.8)
[2018-08-22 05:56] LABS: CALCIUM 7.7 mg/dL (8.4-10.2)
[2018-08-22] MEDS: Insulin Lispro (humaLOG) 100 Units/ml Inj SC SCH ×4 (06:42→22:33)
--- NOTE | 2018-08-22 07:20 | RAD ---
Date of service: 08/22/2018 HISTORY: ETT placement COMPARISON: Portable chest 08/21/2018. FINDINGS: LUNGS: Endotracheal and nasogastric tubes do not appear significantly changed in position. Limited patchy infiltrate remains at the right apex and is diminished at the bilateral perihilar and medial right basilar spaces. PLEURA: No significant pleural effusion identified, no pneumothorax apparent. CARDIOVASCULAR: Calcific atherosclerotic changes are seen related to the thoracic aorta. Normal cardiac size. No pulmonary vascular congestion. OSSEOUS STRUCTURES: No significant abnormalities. VISUALIZED UPPER ABDOMEN: Normal. OTHER FINDINGS: None. IMPRESSION: Diminishing by hilar and right basilar airspace disease if not resolved. Right apical patchy infiltrate remains.
--- NOTE | 2018-08-22 07:57 | CP.CCUPN ---
CCU Subjective - Physician Review Subjective (Free Text): 08/22/18 14:08 The patient was Seen/interviewed and examined by me at the bedside during ICU round, Medical records reviewed and Management issues were discussed and formulated with the house staff. Events reviewed Patient with Acute respiratory failure, Cardiac arrest s/p resuscitation Patient transferred to ICU 08/19 after ?Cardiac arrest (likely syncopal episodes) while she was in Nuclear department for HIDA scan, she collapsed to the floor, but awake, had palpable pulses and spontanous breathing, so no resuscitative measures performed, she was transferred to the ER, few minutes after arriving to the ER, she was found hypotension to 60/38 and bradycardia, Code Blue was called, Received epinephrine x 4 and subsequently ROSC, she was intubated and TLC placed. This morning, he is sedated and orally intubated Clinically improving, No Vasopressors sedated and orally intubated, on ventilator, on PRVC TV 400, RR 12, FIO2 45% Awake, opens eyes to verbal stimuli Afebrile Scheduled for HIDA scan today NSR on the monitor Last 24H I&O 3112/1000 This morning labs revealed persistent Leucocytosis, H/H trending down, improving renal function BUN/Cr down to 27/2.1 No evidence of active bleed Will transfuse one unit of packed RBC Critical Care Time Spent (in minutes): 48 CCU Objective - Vital Signs / Intake & Output Vital Signs (Last 4 hours): Vital Signs Temp Pulse Resp BP Pulse Ox 08/22/18 07:00 84 17 169/73 H 100 08/22/18 06:00 75 15 159/66 H 100 08/22/18 05:00 89 20 180/78 H 97 08/22/18 04:00 98.5 F 76 16 168/70 H 100 Intake and Output (Last 8hrs): Intake & Output 08/21/18 08/22/18 08/22/18 22:59 06:59 14:59 Intake Total 900 1162 Output Total 500 500 Balance 400 662 Intake: IV 800 1062 Intake, Piggyback 100 100 Output: Urine 500 500 Urethral (Jin) 500 500 Other: # Bowel Movements 0 - Physical Exam Head: Positive for: Atraumatic, Normocephalic Pupils: Positive for: PERRL Conjunctiva: Positive for: Normal Mouth: Positive for: Moist Mucous Membranes Nose (External): Positive for: Atraumatic Neck: Positive for: Normal Range of Motion Respiratory/Chest: Positive for: Rhonchi Cardiovascular: Positive for: Regular Rate and Rhythm Abdomen: Positive for: Normal Bowel Sounds Upper Extremity: Positive for: Normal Inspection Lower Extremity: Positive for: Normal Inspection Neurological: Positive for: Other (on ventilator, opens eyes to verbal stimuli) - Medications Active Medications: Active Medications Generic Name Dose Route Start Last Admin Trade Name Freq PRN Reason Stop Dose Admin Amlodipine Besylate 10 mg 08/19/18 09:00 08/19/18 08:34 Norvasc PO 10 mg DAILY [facility] Administration Aspirin 81 mg 08/21/18 09:00 08/21/18 09:43 Aspirin Chewable PO 81 mg DAILY [facility] Administration Atorvastatin Calcium 20 mg 08/13/18 09:00 08/21/18 09:21 Lipitor PO 20 mg DAILY [facility] Administration Dextrose 0 ml 08/13/18 08:17 Dextrose 50% Inj IV STAT PRN Hypoglycemia Protocol Protocol Dextrose 0 gm 08/13/18 08:17 Glutose 15 PO ONCE PRN Hypoglycemia Protocol Protocol Enoxaparin Sodium 70 mg 08/16/18 11:45 08/21/18 09:46 Lovenox SC 70 mg DAILY [facility] Administration Protocol Glucagon 0 mg 08/13/18 08:17 Glucagen Diagnostic Kit IM STAT PRN Hypoglycemia Protocol Protocol Hydralazine HCl 20 mg 08/20/18 20:56 08/21/18 05:24 Apresoline IV 20 mg Q6 PRN Administration HYPERTENSION SBP > 170 Piperacillin Sod/Tazobactam 100 mls @ 100 mls/hr 08/16/18 12:15 08/22/18 00:16 Sod 2.25 gm/ Sodium Chloride IVPB 100 mls/hr Q8 [facility] Administration Protocol Vancomycin HCl 1 gm/ Sodium 250 mls @ 166.667 mls/hr 08/19/18 13:15 08/21/18 12:45 Chloride IVPB 166.667 mls/hr Q48H [facility] Administration Protocol Propofol 1,000 mg in 100 mls @ 11.022 mls/hr 08/22/18 00:30 08/22/18 06:04 Diprivan IV 08/23/18 00:16 25 mcg/kg/min .Q9H5M [facility] 11.022 mls/hr Titration Protocol 25 MCG/KG/MIN Sodium Chloride 1,000 mls @ 100 mls/hr 08/22/18 00:30 08/22/18 00:22 Sodium Chloride 0.9% IV 08/23/18 00:16 100 mls/hr .Q10H [facility] Administration Insulin Human Lispro 0 units 08/13/18 11:30 08/22/18 06:42 Humalog SC 1 u ACHS [facility] Administration Protocol Meclizine HCl 12.5 mg 08/13/18 09:00 08/18/18 09:27 Antivert PO 12.5 mg DAILY [facility] Administration Metformin HCl 1,000 mg 08/13/18 09:00 08/16/18 09:34 Glucophage PO Not Given BID [facility] Metoprolol Succinate 50 mg 08/16/18 21:00 08/19/18 08:34 Toprol Xl PO 50 mg Q12 [facility] Administration Pantoprazole Sodium 40 mg 08/13/18 09:00 08/21/18 09:38 Protonix Ec Tab PO 40 mg DAILY [facility] Administration Sucralfate 1 gm 08/14/18 20:30 08/18/18 22:07 Carafate Oral Susp PO 1 gm ACHS [facility] Administration - Patient Studies Lab Studies: Microbiology Studies 08/16/18 12:57 Blood Culture - Final Blood NO GROWTH AFTER 5 DAYS Gram Stain - Final TEST NOT PERFORMED 08/19/18 11:13 Blood Culture - Preliminary Blood NO GROWTH AFTER 48 HOURS 08/19/18 11:11 Gram Stain - Final Sputum Sputum Culture - Final NORMAL ORAL SUKHI Lab Studies 08/22/18 08/22/18 08/22/18 Range/Units 06:12 05:00 04:30 WBC (4.8-10.8) K/uL RBC (3.80-5.20) Mil/uL Hgb (12.0-16.0) g/dL Hct (34.0-47.0) % MCV (81.0-99.0) fl MCH (27.0-31.0) pg MCHC (33.0-37.0) g/dL RDW (11.5-14.5) % Plt Count (130-400) K/uL pCO2 32 L (35-45) mm/Hg pO2 80 (80-100) mm/Hg HCO3 18.1 L (21-28) mmol/L ABG pH 7.32 L (7.35-7.45) ABG Total CO2 17.5 L (22-28) mmol/L ABG O2 Saturation 98.4 H (95-98) % ABG O2 Content 11.2 L (15-23) ML/dL ABG Base Excess -8.7 L (-2.0-3.0) mmol/L ABG Hemoglobin 8.2 L (11.7-17.4) g/dL ABG Carboxyhemoglobin 1.2 (0.5-1.5) % POC ABG HHb (Measured) 1.6 (0.0-5.0) % ABG Methemoglobin 1.2 (0.0-3.0) % ABG O2 Capacity 11.4 L (16-24) mL/dL Masoud Test Yes A-a O2 Difference 94.0 mm/Hg Hgb O2 Saturation 96.0 (95.0-98.0) % Vent Mode A/c Mechanical Rate 12 FiO2 30.0 % Tidal Volume 400 PEEP 5 Sodium 146 (132-148) mmol/l Potassium 3.3 L (3.6-5.0) MMOL/L Chloride 123 H (98-107) mmol/L Carbon Dioxide 18 L (22-30) mmol/L Anion Gap 8 L (10-20) BUN 27 H (7-17) mg/dl Creatinine 2.1 H (0.7-1.2) mg/dl Est GFR ( Amer) 28 Est GFR (Non-Af Amer) 23 POC Glucose (mg/dL) 183 H (65-110) mg/dL Random Glucose 171 H (65-105) mg/dL Calcium 7.7 L (8.4-10.2) mg/dL Vancomycin Trough (5.0-10.0) ug/mL Blood Type Blood Type Confirm Antibody Screen BBK History Checked 08/22/18 08/21/18 08/21/18 Range/Units 04:30 22:09 16:40 WBC 13.6 H (4.8-10.8) K/uL RBC 2.23 L (3.80-5.20) Mil/uL Hgb 6.9 L D (12.0-16.0) g/dL Hct 21.2 L (34.0-47.0) % MCV 94.7 (81.0-99.0) fl MCH 30.8 (27.0-31.0) pg MCHC 32.5 L (33.0-37.0) g/dL RDW 13.8 (11.5-14.5) % Plt Count 220 (130-400) K/uL pCO2 (35-45) mm/Hg pO2 (80-100) mm/Hg HCO3 (21-28) mmol/L ABG pH (7.35-7.45) ABG Total CO2 (22-28) mmol/L ABG O2 Saturation (95-98) % ABG O2 Content (15-23) ML/dL ABG Base Excess (-2.0-3.0) mmol/L ABG Hemoglobin (11.7-17.4) g/dL ABG Carboxyhemoglobin (0.5-1.5) % POC ABG HHb (Measured) (0.0-5.0) % ABG Methemoglobin (0.0-3.0) % ABG O2 Capacity (16-24) mL/dL Masoud Test A-a O2 Difference mm/Hg Hgb O2 Saturation (95.0-98.0) % Vent Mode Mechanical Rate FiO2 % Tidal Volume PEEP Sodium (132-148) mmol/l Potassium (3.6-5.0) MMOL/L Chloride (98-107) mmol/L Carbon Dioxide (22-30) mmol/L Anion Gap (10-20) BUN (7-17) mg/dl Creatinine (0.7-1.2) mg/dl Est GFR ( Amer) Est GFR (Non-Af Amer) POC Glucose (mg/dL) 150 H 209 H (65-110) mg/dL Random Glucose (65-105) mg/dL Calcium (8.4-10.2) mg/dL Vancomycin Trough (5.0-10.0) ug/mL Blood Type Blood Type Confirm Antibody Screen BBK History Checked 08/21/18 08/21/18 08/21/18 Range/Units 11:43 09:00 09:00 WBC 12.7 H (4.8-10.8) K/uL RBC 2.97 L (3.80-5.20) Mil/uL Hgb 9.2 L D (12.0-16.0) g/dL Hct 28.6 L (34.0-47.0) % MCV 96.2 D (81.0-99.0) fl MCH 30.9 (27.0-31.0) pg MCHC 32.1 L (33.0-37.0) g/dL RDW 13.8 (11.5-14.5) % Plt Count 185 (130-400) K/uL pCO2 (35-45) mm/Hg pO2 (80-100) mm/Hg HCO3 (21-28) mmol/L ABG pH (7.35-7.45) ABG Total CO2 (22-28) mmol/L ABG O2 Saturation (95-98) % ABG O2 Content (15-23) ML/dL ABG Base Excess (-2.0-3.0) mmol/L ABG Hemoglobin (11.7-17.4) g/dL ABG Carboxyhemoglobin (0.5-1.5) % POC ABG HHb (Measured) (0.0-5.0) % ABG Methemoglobin (0.0-3.0) % ABG O2 Capacity (16-24) mL/dL Masoud Test A-a O2 Difference mm/Hg Hgb O2 Saturation (95.0-98.0) % Vent Mode Mechanical Rate FiO2 % Tidal Volume PEEP Sodium (132-148) mmol/l Potassium (3.6-5.0) MMOL/L Chloride (98-107) mmol/L Carbon Dioxide (22-30) mmol/L Anion Gap (10-20) BUN (7-17) mg/dl Creatinine (0.7-1.2) mg/dl Est GFR ( Amer) Est GFR (Non-Af Amer) POC Glucose (mg/dL) 233 H (65-110) mg/dL Random Glucose (65-105) mg/dL Calcium (8.4-10.2) mg/dL Vancomycin Trough (5.0-10.0) ug/mL Blood Type O POSITIVE Blood Type Confirm Antibody Screen Negative BBK History Checked No verified bt 08/21/18 08/21/18 Range/Units 09:00 04:30 WBC (4.8-10.8) K/uL RBC (3.80-5.20) Mil/uL Hgb (12.0-16.0) g/dL Hct (34.0-47.0) % MCV (81.0-99.0) fl MCH (27.0-31.0) pg MCHC (33.0-37.0) g/dL RDW (11.5-14.5) % Plt Count (130-400) K/uL pCO2 (35-45) mm/Hg pO2 (80-100) mm/Hg HCO3 (21-28) mmol/L ABG pH (7.35-7.45) ABG Total CO2 (22-28) mmol/L ABG O2 Saturation (95-98) % ABG O2 Content (15-23) ML/dL ABG Base Excess (-2.0-3.0) mmol/L ABG Hemoglobin (11.7-17.4) g/dL ABG Carboxyhemoglobin (0.5-1.5) % POC ABG HHb (Measured) (0.0-5.0) % ABG Methemoglobin (0.0-3.0) % ABG O2 Capacity (16-24) mL/dL Masoud Test A-a O2 Difference mm/Hg Hgb O2 Saturation (95.0-98.0) % Vent Mode Mechanical Rate FiO2 % Tidal Volume PEEP Sodium (132-148) mmol/l Potassium (3.6-5.0) MMOL/L Chloride (98-107) mmol/L Carbon Dioxide (22-30) mmol/L Anion Gap (10-20) BUN (7-17) mg/dl Creatinine (0.7-1.2) mg/dl Est GFR ( Amer) Est GFR (Non-Af Amer) POC Glucose (mg/dL) (65-110) mg/dL Random Glucose (65-105) mg/dL Calcium (8.4-10.2) mg/dL Vancomycin Trough 8.5 (5.0-10.0) ug/mL Blood Type Blood Type Confirm O POSITIVE Antibody Screen BBK History Checked Laboratory Results - last 24 hr 08/21/18 08/21/18 08/21/18 04:30 09:00 09:00 WBC 12.7 H RBC 2.97 L Hgb 9.2 L D Hct 28.6 L MCV 96.2 D MCH 30.9 MCHC 32.1 L RDW 13.8 Plt Count 185 pCO2 pO2 HCO3 ABG pH ABG Total CO2 ABG O2 Saturation ABG O2 Content ABG Base Excess ABG Hemoglobin ABG Carboxyhemoglobin POC ABG HHb (Measured) ABG Methemoglobin ABG O2 Capacity Masoud Test A-a O2 Difference Hgb O2 Saturation Vent Mode Mechanical Rate FiO2 Tidal Volume PEEP Sodium Potassium Chloride Carbon Dioxide Anion Gap BUN Creatinine Est GFR ( Amer) Est GFR (Non-Af Amer) POC Glucose (mg/dL) Random Glucose Calcium Vancomycin Trough 8.5 Blood Type Blood Type Confirm O POSITIVE Antibody Screen BBK History Checked 08/21/18 08/21/18 08/21/18 09:00 11:43 16:40 WBC RBC Hgb Hct MCV MCH MCHC RDW Plt Count pCO2 pO2 HCO3 ABG pH ABG Total CO2 ABG O2 Saturation ABG O2 Content ABG Base Excess ABG Hemoglobin ABG Carboxyhemoglobin POC ABG HHb (Measured) ABG Methemoglobin ABG O2 Capacity Masoud Test A-a O2 Difference Hgb O2 Saturation Vent Mode Mechanical Rate FiO2 Tidal Volume PEEP Sodium Potassium Chloride Carbon Dioxide Anion Gap BUN Creatinine Est GFR ( Amer) Est GFR (Non-Af Amer) POC Glucose (mg/dL) 233 H 209 H Random Glucose Calcium Vancomycin Trough Blood Type O POSITIVE Blood Type Confirm Antibody Screen Negative BBK History Checked No verified bt 08/21/18 08/22/18 08/22/18 22:09 04:30 04:30 WBC 13.6 H RBC 2.23 L Hgb 6.9 L D Hct 21.2 L MCV 94.7 MCH 30.8 MCHC 32.5 L RDW 13.8 Plt Count 220 pCO2 pO2 HCO3 ABG pH ABG Total CO2 ABG O2 Saturation ABG O2 Content ABG Base Excess ABG Hemoglobin ABG Carboxyhemoglobin POC ABG HHb (Measured) ABG Methemoglobin ABG O2 Capacity Masoud Test A-a O2 Difference Hgb O2 Saturation Vent Mode Mechanical Rate FiO2 Tidal Volume PEEP Sodium 146 Potassium 3.3 L Chloride 123 H Carbon Dioxide 18 L Anion Gap 8 L BUN 27 H Creatinine 2.1 H Est GFR ( Amer) 28 Est GFR (Non-Af Amer) 23 POC Glucose (mg/dL) 150 H Random Glucose 171 H Calcium 7.7 L Vancomycin Trough Blood Type Blood Type Confirm Antibody Screen BBK History Checked 08/22/18 08/22/18 05:00 06:12 WBC RBC Hgb Hct MCV MCH MCHC RDW Plt Count pCO2 32 L pO2 80 HCO3 18.1 L ABG pH 7.32 L ABG Total CO2 17.5 L ABG O2 Saturation 98.4 H ABG O2 Content 11.2 L ABG Base Excess -8.7 L ABG Hemoglobin 8.2 L ABG Carboxyhemoglobin 1.2 POC ABG HHb (Measured) 1.6 ABG Methemoglobin 1.2 ABG O2 Capacity 11.4 L Masoud Test Yes A-a O2 Difference 94.0 Hgb O2 Saturation 96.0 Vent Mode A/c Mechanical Rate 12 FiO2 30.0 Tidal Volume 400 PEEP 5 Sodium Potassium Chloride Carbon Dioxide Anion Gap BUN Creatinine Est GFR ( Amer) Est GFR (Non-Af Amer) POC Glucose (mg/dL) 183 H Random Glucose Calcium Vancomycin Trough Blood Type Blood Type Confirm Antibody Screen BBK History Checked Fingerstick Blood Sugar Results: 183 Review of Systems - Review of Systems Systems not reviewed;Unavailable: Intubated Critical Care Progress Note - Ventilator Checklist Head of Bed 30 Degrees: Yes Daily Sedation Vacation: Yes Daily Assessment of Readiness to Wean: Yes Daily Spontaneous Breathing Trial: Yes PUD Prophalyxis: Yes DVT Prophylaxis: Yes Oral Care with Chlorhexidine Gluconate {CHG}: Yes - Nutrition Nutrition: Nutrition Category Date Time Status NPO Diet [DIET] Diets 08/19/18 Breakfast Active Assessment/Plan (1) Cardiac arrest Current Visit: Yes Status: Acute (2) Acute respiratory failure Current Visit: Yes Status: Acute Priority: High (3) NSTEMI (non-ST elevated myocardial infarction) Current Visit: Yes Status: Acute Priority: High (4) Bacteremia Current Visit: Yes Status: Acute Priority: High (5) AURORA (acute kidney injury) Current Visit: Yes Status: Acute (6) Anginal equivalent Current Visit: Yes Status: Acute (7) Aspiration pneumonia Current Visit: Yes Status: Acute (8) Cholelithiasis Current Visit: Yes Status: Acute - Assessment and Plan (Free Text) Assessment: Continue with ICU care, hemodynamic and Respiratory monitoring Wean off sedations Frequent neuro check Wean to Extubated when fully awake Vent weaning in progress Daily CAT/SBT IV antibiotics Continue IV Vancomycin and Piperacillin Sod/Tazobactam Avoid alkalemia and hyperoxia. Daily CXR, ABG Strict I&O HOB maintained at 30 degrees. Maintain aspiration precautions Aggressive pulmonary toilet, chest PT, suctioning Cardiology, Surgery and ID follow up appreciated GI/DVT PPX Stress Ulcer prophylaxis with Protonix 40 mg IVP QD DVT prophylaxis with SCD, LMWH Code Status: Full code Total critical care time 48 minutes Pt's current status is discussed with pt's daughter
--- NOTE | 2018-08-22 08:11 | CP.PCM.PN ---
Subjective - Date & Time of Evaluation Date of Evaluation: 08/22/18 Time of Evaluation: 08:02 - Subjective Subjective: Surgery: Dr. Whitfield Pt seen and examined. No acute events overnight. Remains intubated. Objective - Vital Signs/Intake and Output Vital Signs (last 24 hours): Temp Pulse Resp BP Pulse Ox 98.5 F 84 17 169/73 H 100 08/22/18 04:00 08/22/18 07:00 08/22/18 07:00 08/22/18 07:00 08/22/18 07:00 Intake and Output: 08/22/18 08/22/18 06:59 18:59 Intake Total 1562 Output Total 500 Balance 1062 - Medications Medications: Current Medications Amlodipine Besylate (Norvasc) 10 mg PO DAILY [facility] Last Admin: 08/19/18 08:34 Dose: 10 mg Aspirin (Aspirin Chewable) 81 mg PO DAILY [facility] Last Admin: 08/21/18 09:43 Dose: 81 mg Atorvastatin Calcium (Lipitor) 20 mg PO DAILY [facility] Last Admin: 08/21/18 09:21 Dose: 20 mg Dextrose (Dextrose 50% Inj) 0 ml IV STAT PRN; Protocol PRN Reason: Hypoglycemia Protocol Dextrose (Glutose 15) 0 gm PO ONCE PRN; Protocol PRN Reason: Hypoglycemia Protocol Enoxaparin Sodium (Lovenox) 70 mg SC DAILY [facility]; Protocol Last Admin: 08/21/18 09:46 Dose: 70 mg Glucagon (Glucagen Diagnostic Kit) 0 mg IM STAT PRN; Protocol PRN Reason: Hypoglycemia Protocol Hydralazine HCl (Apresoline) 20 mg IV Q6 PRN PRN Reason: HYPERTENSION SBP > 170 Last Admin: 08/21/18 05:24 Dose: 20 mg Piperacillin Sod/Tazobactam (Sod 2.25 gm/ Sodium Chloride) 100 mls @ 100 mls/hr IVPB Q8 [facility]; Protocol Last Admin: 08/22/18 00:16 Dose: 100 mls/hr Vancomycin HCl 1 gm/ Sodium (Chloride) 250 mls @ 166.667 mls/hr IVPB Q48H [facility]; Protocol Last Admin: 08/21/18 12:45 Dose: 166.667 mls/hr Propofol (Diprivan) 1,000 mg in 100 mls @ 11.022 mls/hr IV .Q9H5M [facility]; Protocol Stop: 08/23/18 00:16 Last Titration: 08/22/18 06:04 Dose: 25 mcg/kg/min, 11.022 mls/hr Sodium Chloride (Sodium Chloride 0.9%) 1,000 mls @ 100 mls/hr IV .Q10H [facility] Stop: 08/23/18 00:16 Last Admin: 08/22/18 00:22 Dose: 100 mls/hr Insulin Human Lispro (Humalog) 0 units SC [facility]; Protocol Last Admin: 08/22/18 06:42 Dose: 1 u Meclizine HCl (Antivert) 12.5 mg PO DAILY [facility] Last Admin: 08/18/18 09:27 Dose: 12.5 mg Metformin HCl (Glucophage) 1,000 mg PO BID [facility] Last Admin: 08/16/18 09:34 Dose: Not Given Metoprolol Succinate (Toprol Xl) 50 mg PO Q12 [facility] Last Admin: 08/19/18 08:34 Dose: 50 mg Pantoprazole Sodium (Protonix Ec Tab) 40 mg PO DAILY [facility] Last Admin: 08/21/18 09:38 Dose: 40 mg Sucralfate (Carafate Oral Susp) 1 gm PO [facility] Last Admin: 08/18/18 22:07 Dose: 1 gm - Labs Labs: 08/22/18 04:30 08/22/18 04:30 - Constitutional Appears: Non-toxic, No Acute Distress - Head Exam Head Exam: ATRAUMATIC, NORMOCEPHALIC - Eye Exam Eye Exam: EOMI - ENT Exam ENT Exam: Mucous Membranes Moist - Neck Exam Neck Exam: Full ROM - Respiratory Exam Additional comments: Intubated - Cardiovascular Exam Cardiovascular Exam: REGULAR RHYTHM - GI/Abdominal Exam GI & Abdominal Exam: Soft. absent: Distended, Firm, Guarding, Rigid, Tenderness, Rebound - Extremities Exam Extremities Exam: absent: Calf Tenderness, Pedal Edema - Neurological Exam Neurological Exam: absent: Alert, Awake Assessment and Plan - Assessment and Plan (Free Text) Assessment: 73F s/p [place], r/o cholecystitis -will need HIDA scan when stable, if + will need cholecystostomy -c/w medical management in interim -will d/w attending Rah PGY4
[2018-08-22] MEDS: Enoxaparin 80 mg Syringe SC SCH (08:46)
[2018-08-22] MEDS: Pantoprazole 40 mg EC Tab PO SCH (08:46)
--- NOTE | 2018-08-22 09:26 | CP.PCM.PN ---
Subjective - Date & Time of Evaluation Date of Evaluation: 08/22/18 Time of Evaluation: 09:24 - Subjective Subjective: patient sedated on respirator Vital sign noted Objective - Vital Signs/Intake and Output Vital Signs (last 24 hours): Temp Pulse Resp BP Pulse Ox 99 F 84 18 190/76 H 100 08/22/18 08:00 08/22/18 09:02 08/22/18 09:00 08/22/18 09:02 08/22/18 09:00 Intake and Output: 08/22/18 08/22/18 06:59 18:59 Intake Total 1562 100 Output Total 500 100 Balance 1062 0 - Medications Medications: Current Medications Amlodipine Besylate (Norvasc) 10 mg PO DAILY [facility] Last Admin: 08/19/18 08:34 Dose: 10 mg Aspirin (Aspirin Chewable) 81 mg PO DAILY [facility] Last Admin: 08/22/18 08:47 Dose: 81 mg Atorvastatin Calcium (Lipitor) 20 mg PO DAILY [facility] Last Admin: 08/22/18 08:46 Dose: 20 mg Dextrose (Dextrose 50% Inj) 0 ml IV STAT PRN; Protocol PRN Reason: Hypoglycemia Protocol Dextrose (Glutose 15) 0 gm PO ONCE PRN; Protocol PRN Reason: Hypoglycemia Protocol Enoxaparin Sodium (Lovenox) 70 mg SC DAILY [facility]; Protocol Last Admin: 08/22/18 08:46 Dose: 70 mg Glucagon (Glucagen Diagnostic Kit) 0 mg IM STAT PRN; Protocol PRN Reason: Hypoglycemia Protocol Hydralazine HCl (Apresoline) 20 mg IV Q6 PRN PRN Reason: HYPERTENSION SBP > 170 Last Admin: 08/22/18 09:02 Dose: 20 mg Piperacillin Sod/Tazobactam (Sod 2.25 gm/ Sodium Chloride) 100 mls @ 100 mls/hr IVPB Q8 [facility]; Protocol Last Admin: 08/22/18 08:46 Dose: 100 mls/hr Vancomycin HCl 1 gm/ Sodium (Chloride) 250 mls @ 166.667 mls/hr IVPB Q48H [facility]; Protocol Last Admin: 08/21/18 12:45 Dose: 166.667 mls/hr Propofol (Diprivan) 1,000 mg in 100 mls @ 11.022 mls/hr IV .Q9H5M [facility]; Protocol Stop: 08/23/18 00:16 Last Titration: 11/26/18 06:04 Dose: 25 mcg/kg/min, 11.022 mls/hr Sodium Chloride (Sodium Chloride 0.9%) 1,000 mls @ 100 mls/hr IV .Q10H [facility] Stop: 08/23/18 00:16 Last Admin: 08/22/18 00:22 Dose: 100 mls/hr Insulin Human Lispro (Humalog) 0 units SC [facility]; Protocol Last Admin: 08/22/18 06:42 Dose: 1 u Meclizine HCl (Antivert) 12.5 mg PO DAILY [facility] Last Admin: 08/18/18 09:27 Dose: 12.5 mg Metformin HCl (Glucophage) 1,000 mg PO BID [facility] Last Admin: 08/16/18 09:34 Dose: Not Given Metoprolol Succinate (Toprol Xl) 50 mg PO Q12 [facility] Last Admin: 08/19/18 08:34 Dose: 50 mg Pantoprazole Sodium (Protonix Ec Tab) 40 mg PO DAILY [facility] Last Admin: 08/22/18 08:46 Dose: 40 mg Sucralfate (Carafate Oral Susp) 1 gm PO [facility] Last Admin: 08/18/18 22:07 Dose: 1 gm - Labs Labs: 08/22/18 04:30 08/22/18 04:30 - Constitutional Appears: No Acute Distress - Eye Exam Eye Exam: Conjunctival injection - ENT Exam ENT Exam: Mucous Membranes Moist - Neck Exam Neck Exam: absent: Lymphadenopathy - Respiratory Exam Respiratory Exam: NORMAL BREATHING PATTERN. absent: Chest Wall Tenderness - Cardiovascular Exam Cardiovascular Exam: absent: Gallop, JVD, Rubs - GI/Abdominal Exam GI & Abdominal Exam: Soft, Normal Bowel Sounds - Extremities Exam Extremities Exam: absent: Calf Tenderness - Back Exam Back Exam: absent: CVA tenderness (L), CVA tenderness (R) - Psychiatric Exam Psychiatric exam: Flat Affect - Skin Skin Exam: absent: Cyanosis Assessment and Plan (1) AURORA (acute kidney injury) Assessment & Plan: acute kidney inju Respiratory failure Sepsis High troponin The plan Management of respiratory failure. Kidney function stable serum creatinine in the range of 2.0 Status: Acute (2) Acute gastroenteritis Status: Resolved (3) Anginal equivalent Status: Acute
--- NOTE | 2018-08-22 09:29 | CP.PCM.PN ---
Subjective - Date & Time of Evaluation Date of Evaluation: 08/22/18 Time of Evaluation: 09:28 - Subjective Subjective: General Surgery Pt seen and examined this AM. No visitors present. Pt is NPO. Intubated and medically sedated. As per RN, pt may go to HIDA scan today. Labs and vitals noted. PE Gen: Pt laying in bed in NAD. Intubated, OGT in place. Skin: warm and dry Cardio: s1s2 RRR Lungs: CTA bilaterally in anterior lung bertrand Abd: Soft, (-) distention Extr: (+) restrained bilateral UE, (-) edema of bilateral LE. A/P Abdominal pain, Cholelithiasis, HI, HIDA scan pending If HIDA scan positive, pt will need a cholecystostomy tube Keep NPO for test Objective - Vital Signs/Intake and Output Vital Signs (last 24 hours): Temp Pulse Resp BP Pulse Ox 99 F 84 18 190/76 H 100 08/22/18 08:00 08/22/18 09:02 08/22/18 09:00 08/22/18 09:02 08/22/18 09:00 Intake and Output: 08/22/18 08/22/18 06:59 18:59 Intake Total 1562 100 Output Total 500 100 Balance 1062 0 - Medications Medications: Current Medications Amlodipine Besylate (Norvasc) 10 mg PO DAILY [facility] Last Admin: 08/19/18 08:34 Dose: 10 mg Aspirin (Aspirin Chewable) 81 mg PO DAILY [facility] Last Admin: 08/22/18 08:47 Dose: 81 mg Atorvastatin Calcium (Lipitor) 20 mg PO DAILY [facility] Last Admin: 08/22/18 08:46 Dose: 20 mg Dextrose (Dextrose 50% Inj) 0 ml IV STAT PRN; Protocol PRN Reason: Hypoglycemia Protocol Dextrose (Glutose 15) 0 gm PO ONCE PRN; Protocol PRN Reason: Hypoglycemia Protocol Enoxaparin Sodium (Lovenox) 70 mg SC DAILY [facility]; Protocol Last Admin: 08/22/18 08:46 Dose: 70 mg Glucagon (Glucagen Diagnostic Kit) 0 mg IM STAT PRN; Protocol PRN Reason: Hypoglycemia Protocol Hydralazine HCl (Apresoline) 20 mg IV Q6 PRN PRN Reason: HYPERTENSION SBP > 170 Last Admin: 08/22/18 09:02 Dose: 20 mg Piperacillin Sod/Tazobactam (Sod 2.25 gm/ Sodium Chloride) 100 mls @ 100 mls/hr IVPB Q8 [facility]; Protocol Last Admin: 08/22/18 08:46 Dose: 100 mls/hr Vancomycin HCl 1 gm/ Sodium (Chloride) 250 mls @ 166.667 mls/hr IVPB Q48H [facility]; Protocol Last Admin: 08/21/18 12:45 Dose: 166.667 mls/hr Propofol (Diprivan) 1,000 mg in 100 mls @ 11.022 mls/hr IV .Q9H5M [facility]; Protocol Stop: 08/23/18 00:16 Last Titration: 08/22/18 06:04 Dose: 25 mcg/kg/min, 11.022 mls/hr Sodium Chloride (Sodium Chloride 0.9%) 1,000 mls @ 100 mls/hr IV .Q10H [facility] Stop: 08/23/18 00:16 Last Admin: 08/22/18 00:22 Dose: 100 mls/hr Insulin Human Lispro (Humalog) 0 units SC [facility]; Protocol Last Admin: 08/22/18 06:42 Dose: 1 u Meclizine HCl (Antivert) 12.5 mg PO DAILY [facility] Last Admin: 08/18/18 09:27 Dose: 12.5 mg Metformin HCl (Glucophage) 1,000 mg PO BID [facility] Last Admin: 08/16/18 09:34 Dose: Not Given Metoprolol Succinate (Toprol Xl) 50 mg PO Q12 [facility] Last Admin: 08/19/18 08:34 Dose: 50 mg Pantoprazole Sodium (Protonix Ec Tab) 40 mg PO DAILY [facility] Last Admin: 08/22/18 08:46 Dose: 40 mg Sucralfate (Carafate Oral Susp) 1 gm PO ACHS [facility] Last Admin: 08/18/18 22:07 Dose: 1 gm - Labs Labs: 08/22/18 04:30 08/22/18 04:30
[2018-08-22 13:17] LABS: IRON 28 ug/dL (37-170)
[2018-08-22 13:31] LABS: % IRON SATURATION 14 % (20-55); TOTAL IRON BINDING CAPACITY 199 ug/dL (250-450)
[2018-08-22] MEDS: Metoprolol 1 mg/ml Inj IVP SCH ×2 (17:02→21:22)
[2018-08-22] MEDS: Potassium Chloride 20 mEq/15 ml LIQ UD NG SCH ×2 (17:03→21:23)
--- NOTE | 2018-08-22 17:31 | CP.PCM.PN ---
Subjective - Date & Time of Evaluation Date of Evaluation: 08/22/18 Time of Evaluation: 17:10 - Subjective Subjective: COVERAGE for DR FIORE. events noted. patient is intubated. Objective - Vital Signs/Intake and Output Vital Signs (last 24 hours): Temp Pulse Resp BP Pulse Ox 97.9 F 72 20 133/63 97 08/22/18 17:08 08/22/18 17:08 08/22/18 17:08 08/22/18 17:08 08/22/18 17:00 Intake and Output: 08/22/18 08/22/18 06:59 18:59 Intake Total 1562 1188 Output Total 500 1000 Balance 1062 188 - Medications Medications: Current Medications Amlodipine Besylate (Norvasc) 5 mg PO Q12 [facility] Aspirin (Aspirin Chewable) 81 mg PO DAILY [facility] Last Admin: 08/22/18 08:47 Dose: 81 mg Atorvastatin Calcium (Lipitor) 20 mg PO DAILY [facility] Last Admin: 08/22/18 08:46 Dose: 20 mg Dextrose (Dextrose 50% Inj) 0 ml IV STAT PRN; Protocol PRN Reason: Hypoglycemia Protocol Dextrose (Glutose 15) 0 gm PO ONCE PRN; Protocol PRN Reason: Hypoglycemia Protocol Glucagon (Glucagen Diagnostic Kit) 0 mg IM STAT PRN; Protocol PRN Reason: Hypoglycemia Protocol Hydralazine HCl (Apresoline) 10 mg IV Q6 [facility] Last Admin: 08/22/18 16:59 Dose: 10 mg Vancomycin HCl 1 gm/ Sodium (Chloride) 250 mls @ 166.667 mls/hr IVPB Q48H [facility]; Protocol Last Admin: 08/21/18 12:45 Dose: 166.667 mls/hr Propofol (Diprivan) 1,000 mg in 100 mls @ 11.022 mls/hr IV .Q9H5M [facility]; Protocol Stop: 08/23/18 00:16 Last Titration: 08/22/18 15:01 Dose: 25 mcg/kg/min, 11.022 mls/hr Sodium Chloride (Sodium Chloride 0.9%) 1,000 mls @ 100 mls/hr IV .Q10H [facility] Stop: 08/23/18 00:16 Last Admin: 08/22/18 00:22 Dose: 100 mls/hr Insulin Human Lispro (Humalog) 0 units SC ACHS [facility]; Protocol Last Admin: 08/22/18 17:02 Dose: 1 u Meclizine HCl (Antivert) 12.5 mg PO DAILY [facility] Last Admin: 08/18/18 09:27 Dose: 12.5 mg Metformin HCl (Glucophage) 1,000 mg PO BID [facility] Last Admin: 08/16/18 09:34 Dose: Not Given Metoprolol Tartrate (Lopressor) 5 mg IVP Q6 [facility] Last Admin: 08/22/18 17:02 Dose: 5 mg Pantoprazole Sodium (Protonix Ec Tab) 40 mg PO DAILY [facility] Last Admin: 08/22/18 08:46 Dose: 40 mg Potassium Chloride (Potassium Chloride Oral Soln) 40 meq NG Q6 [facility] Stop: 08/22/18 22:01 Last Admin: 08/22/18 17:03 Dose: 40 meq Sucralfate (Carafate Oral Susp) 1 gm PO [facility] Last Admin: 08/18/18 22:07 Dose: 1 gm - Labs Labs: 08/22/18 04:30 08/22/18 04:30 - Constitutional Appears: No Acute Distress - Head Exam Head Exam: NORMAL INSPECTION - Eye Exam Eye Exam: Normal appearance - ENT Exam ENT Exam: Mucous Membranes Moist - Neck Exam Neck Exam: Full ROM - Respiratory Exam Respiratory Exam: Decreased Breath Sounds - Cardiovascular Exam Cardiovascular Exam: REGULAR RHYTHM - GI/Abdominal Exam GI & Abdominal Exam: Normal Bowel Sounds - Rectal Exam Rectal Exam: Deferred - Extremities Exam Extremities Exam: absent: Pedal Edema - Skin Skin Exam: Normal Color Assessment and Plan (1) NSTEMI (non-ST elevated myocardial infarction) Assessment & Plan: will recommend continued supportive therapy. Ludmila has underlyuing CAD however would not recommend proceeding to cardiac cath at this time. await HIDA scan results. betablocker therapy Status: Acute
[2018-08-23] MEDS: Sodium Chloride 0.9% 1,000 ML IV SCH (04:06)
[2018-08-23] MEDS: Metoprolol 1 mg/ml Inj IVP SCH ×4 (04:10→21:16)
[2018-08-23 04:54] LABS: ABG ALLEN TEST YES; ARTERIAL BLOOD GAS HCO3 14.6 mmol/L (21-28); ARTERIAL BLOOD GAS HEMOGLOBIN 9.6 g/dL (11.7-17.4); ARTERIAL BLOOD GAS O2 CAPACITY 13.4 mL/dL (16-24); ARTERIAL BLOOD GAS O2 CONTENT 13.3 ML/dL (15-23); ARTERIAL BLOOD GAS O2 SAT 99.4 % (95-98); ARTERIAL BLOOD GAS PCO2 29 mm/Hg (35-45); ARTERIAL BLOOD GAS PH 7.25 (7.35-7.45); ARTERIAL BLOOD GAS PO2 105 mm/Hg (80-100); ARTERIAL BLOOD GAS TCO2 13.6 mmol/L (22-28)
[2018-08-23 06:25] LABS: HEMOGLOBIN 9.5 g/dL (12.0-16.0); MEAN CELL VOLUME 93.9 fl (81.0-99.0); MEAN CORPUSCULAR HEMOGLOBIN 30.4 pg (27.0-31.0); MEAN CORPUSCULAR HGB CONC 32.3 g/dL (33.0-37.0); RBC 3.12 Mil/uL (3.80-5.20); RED CELL DISTRIBUTION WIDTH 15.9 % (11.5-14.5); WHITE BLOOD COUNT 17.4 K/uL (4.8-10.8)
[2018-08-23] MEDS: Insulin Lispro (humaLOG) 100 Units/ml Inj SC SCH ×4 (06:34→21:24)
[2018-08-23 06:54] LABS: CALCIUM 8.2 mg/dL (8.4-10.2)
[2018-08-23] MEDS ORDERED: Sodium Chloride 0.9% 1,000 ML IV SCH (07:30)
[2018-08-23] MEDS: Propofol 10 mg/ml 1,000 MG/100 ML VIAL IV SCH (07:37)
[2018-08-23 08:05] LABS: ALBUMIN 3.3 g/dL (3.5-5.0); BILIRUBIN,DIRECT 0.7 mg/ml (0.0-0.4)
[2018-08-23] MEDS: Pantoprazole 40 mg EC Tab PO SCH (08:37)
--- NOTE | 2018-08-23 09:11 | RAD ---
Date of service: 08/23/2018 HISTORY: ETT placement COMPARISON: 08/22/2018 FINDINGS: LUNGS: Linear scar/atelectasis adjacent to right hilum, unchanged. No infiltrate. PLEURA: No significant pleural effusion identified, no pneumothorax apparent. CARDIOVASCULAR: No aortic atherosclerotic calcification present. Normal cardiac size. No congestive change. ET tube and NG tube unchanged. OSSEOUS STRUCTURES: No significant abnormalities. VISUALIZED UPPER ABDOMEN: Normal. OTHER FINDINGS: None. IMPRESSION: No active disease.
--- NOTE | 2018-08-23 09:27 | CP.PCM.PN ---
Subjective - Date & Time of Evaluation Date of Evaluation: 08/23/18 Time of Evaluation: 09:25 - Subjective Subjective: Surgery: Dr. Ramirez Pt seen and examined. Received 1U PRBCs yesterday. Remains intubated. Objective - Vital Signs/Intake and Output Vital Signs (last 24 hours): Temp Pulse Resp BP Pulse Ox 98.8 F 76 25 H 129/60 99 08/23/18 08:00 08/23/18 09:00 08/23/18 09:00 08/23/18 09:00 08/23/18 09:00 Intake and Output: 08/23/18 08/23/18 06:59 18:59 Intake Total 1200 100 Output Total 800 100 Balance 400 0 - Medications Medications: Current Medications Amlodipine Besylate (Norvasc) 5 mg PO Q12 [facility] Last Admin: 08/23/18 08:37 Dose: 5 mg Aspirin (Aspirin Chewable) 81 mg PO DAILY [facility] Last Admin: 08/23/18 08:39 Dose: 81 mg Atorvastatin Calcium (Lipitor) 20 mg PO DAILY [facility] Last Admin: 08/23/18 08:36 Dose: 20 mg Dextrose (Dextrose 50% Inj) 0 ml IV STAT PRN; Protocol PRN Reason: Hypoglycemia Protocol Dextrose (Glutose 15) 0 gm PO ONCE PRN; Protocol PRN Reason: Hypoglycemia Protocol Glucagon (Glucagen Diagnostic Kit) 0 mg IM STAT PRN; Protocol PRN Reason: Hypoglycemia Protocol Hydralazine HCl (Apresoline) 10 mg IV Q6 [facility] Last Admin: 08/23/18 09:00 Dose: 10 mg Vancomycin HCl 1 gm/ Sodium (Chloride) 250 mls @ 166.667 mls/hr IVPB Q48H [facility]; Protocol Last Admin: 08/21/18 12:45 Dose: 166.667 mls/hr Piperacillin Sod/Tazobactam (Sod 2.25 gm/ Sodium Chloride) 100 mls @ 100 mls/hr IVPB Q8 [facility]; Protocol Last Admin: 08/23/18 08:37 Dose: 100 mls/hr Propofol (Diprivan) 1,000 mg in 100 mls @ 6.613 mls/hr IV .Q15H8M [facility]; Protocol Stop: 08/24/18 07:29 Last Admin: 08/23/18 07:37 Dose: 15 mcg/kg/min, 6.613 mls/hr Insulin Human Lispro (Humalog) 0 units SC [facility]; Protocol Last Admin: 08/23/18 06:34 Dose: 2 u Meclizine HCl (Antivert) 12.5 mg PO DAILY [facility] Last Admin: 08/18/18 09:27 Dose: 12.5 mg Metformin HCl (Glucophage) 1,000 mg PO BID [facility] Last Admin: 08/16/18 09:34 Dose: Not Given Metoprolol Tartrate (Lopressor) 5 mg IVP Q6 [facility] Last Admin: 08/23/18 09:00 Dose: 5 mg Pantoprazole Sodium (Protonix Ec Tab) 40 mg PO DAILY [facility] Last Admin: 08/23/18 08:37 Dose: 40 mg Sucralfate (Carafate Oral Susp) 1 gm PO [facility] Last Admin: 08/18/18 22:07 Dose: 1 gm - Labs Labs: 08/23/18 06:00 08/23/18 06:00 - Constitutional Appears: Non-toxic, No Acute Distress - Head Exam Head Exam: ATRAUMATIC, NORMOCEPHALIC - Eye Exam Eye Exam: EOMI - ENT Exam ENT Exam: Mucous Membranes Moist - Neck Exam Neck Exam: Full ROM - Respiratory Exam Additional comments: Intubated - Cardiovascular Exam Cardiovascular Exam: REGULAR RHYTHM - GI/Abdominal Exam GI & Abdominal Exam: Soft. absent: Distended, Firm, Guarding, Rigid, Ten derness, Rebound - Extremities Exam Extremities Exam: absent: Calf Tenderness, Pedal Edema - Neurological Exam Neurological Exam: Alert, Awake - Skin Skin Exam: Dry, Normal Color, Warm Assessment and Plan - Assessment and Plan (Free Text) Assessment: 73F s/p IA, r/o cholecystitis -will need HIDA scan when stable, if + will need cholecystostomy -c/w medical management in interim -will d/w attending Zemaitis PGY4
--- NOTE | 2018-08-23 10:47 | CP.PCM.PN ---
Subjective - Date & Time of Evaluation Date of Evaluation: 08/23/18 Time of Evaluation: 08:00 - Subjective Subjective: awake alert NAD afebrile intubated Objective - Vital Signs/Intake and Output Vital Signs (last 24 hours): Temp Pulse Resp BP Pulse Ox 98.8 F 96 H 25 H 171/77 H 98 08/23/18 08:00 08/23/18 10:00 08/23/18 10:00 08/23/18 10:00 08/23/18 10:00 Intake and Output: 08/23/18 08/23/18 06:59 18:59 Intake Total 1200 300 Output Total 800 200 Balance 400 100 - Medications Medications: Current Medications Amlodipine Besylate (Norvasc) 5 mg PO Q12 [facility] Last Admin: 08/23/18 08:37 Dose: 5 mg Aspirin (Aspirin Chewable) 81 mg PO DAILY [facility] Last Admin: 08/23/18 08:39 Dose: 81 mg Atorvastatin Calcium (Lipitor) 20 mg PO DAILY [facility] Last Admin: 08/23/18 08:36 Dose: 20 mg Dextrose (Dextrose 50% Inj) 0 ml IV STAT PRN; Protocol PRN Reason: Hypoglycemia Protocol Dextrose (Glutose 15) 0 gm PO ONCE PRN; Protocol PRN Reason: Hypoglycemia Protocol Glucagon (Glucagen Diagnostic Kit) 0 mg IM STAT PRN; Protocol PRN Reason: Hypoglycemia Protocol Hydralazine HCl (Apresoline) 10 mg IV Q6 [facility] Last Admin: 08/23/18 09:00 Dose: 10 mg Vancomycin HCl 1 gm/ Sodium (Chloride) 250 mls @ 166.667 mls/hr IVPB Q48H [facility]; Protocol Last Admin: 08/21/18 12:45 Dose: 166.667 mls/hr Piperacillin Sod/Tazobactam (Sod 2.25 gm/ Sodium Chloride) 100 mls @ 100 mls/hr IVPB Q8 [facility]; Protocol Last Admin: 08/23/18 08:37 Dose: 100 mls/hr Propofol (Diprivan) 1,000 mg in 100 mls @ 6.613 mls/hr IV .Q15H8M [facility]; Protocol Stop: 08/24/18 07:29 Last Admin: 08/23/18 07:37 Dose: 15 mcg/kg/min, 6.613 mls/hr Insulin Human Lispro (Humalog) 0 units SC ACHS [facility]; Protocol Last Admin: 08/23/18 06:34 Dose: 2 u Meclizine HCl (Antivert) 12.5 mg PO DAILY [facility] Last Admin: 08/18/18 09:27 Dose: 12.5 mg Metformin HCl (Glucophage) 1,000 mg PO BID [facility] Last Admin: 08/16/18 09:34 Dose: Not Given Metoprolol Tartrate (Lopressor) 5 mg IVP Q6 [facility] Last Admin: 08/23/18 09:00 Dose: 5 mg Pantoprazole Sodium (Protonix Ec Tab) 40 mg PO DAILY [facility] Last Admin: 08/23/18 08:37 Dose: 40 mg Sucralfate (Carafate Oral Susp) 1 gm PO [facility] Last Admin: 08/18/18 22:07 Dose: 1 gm - Labs Labs: 08/23/18 06:00 08/23/18 06:00 - Constitutional Appears: Non-toxic, Chronically Ill - Head Exam Head Exam: NORMOCEPHALIC - Eye Exam Eye Exam: absent: Scleral icterus - ENT Exam ENT Exam: Mucous Membranes Dry - Neck Exam Neck Exam: absent: Lymphadenopathy - Respiratory Exam Respiratory Exam: Decreased Breath Sounds - Cardiovascular Exam Cardiovascular Exam: REGULAR RHYTHM - GI/Abdominal Exam GI & Abdominal Exam: Distended, Soft. absent: Tenderness - Rectal Exam Rectal Exam: Deferred - Exam Exam: NORMAL INSPECTION - Extremities Exam Extremities Exam: absent: Pedal Edema - Back Exam Back Exam: absent: CVA tenderness (L), CVA tenderness (R) Assessment and Plan (1) Dehydration Status: Acute (2) NSTEMI (non-ST elevated myocardial infarction) Status: Acute (3) Nausea & vomiting Status: Acute (4) Type 2 diabetes mellitus with hyperglycemia Status: Acute (5) Abdominal pain Status: Acute (6) Gallbladder disease Status: Acute (7) Pneumonia Status: Acute - Assessment and Plan (Free Text) Assessment: possible cholecystotomy when stable cardiac martin cont iv antibiotics
--- NOTE | 2018-08-23 12:24 | CP.PCM.PN ---
Subjective - Date & Time of Evaluation Date of Evaluation: 08/23/18 Time of Evaluation: 12:23 - Subjective Subjective: patient remain on respirator although she is communicating slightly Objective - Vital Signs/Intake and Output Vital Signs (last 24 hours): Temp Pulse Resp BP Pulse Ox 98.9 F 90 26 H 143/70 100 08/23/18 12:00 08/23/18 12:00 08/23/18 12:00 08/23/18 12:00 08/23/18 12:00 Intake and Output: 08/23/18 08/23/18 06:59 18:59 Intake Total 1200 300 Output Total 800 250 Balance 400 50 - Medications Medications: Current Medications Amlodipine Besylate (Norvasc) 5 mg PO Q12 [facility] Last Admin: 08/23/18 08:37 Dose: 5 mg Aspirin (Aspirin Chewable) 81 mg PO DAILY [facility] Last Admin: 08/23/18 08:39 Dose: 81 mg Atorvastatin Calcium (Lipitor) 20 mg PO DAILY [facility] Last Admin: 08/23/18 08:36 Dose: 20 mg Dextrose (Dextrose 50% Inj) 0 ml IV STAT PRN; Protocol PRN Reason: Hypoglycemia Protocol Dextrose (Glutose 15) 0 gm PO ONCE PRN; Protocol PRN Reason: Hypoglycemia Protocol Glucagon (Glucagen Diagnostic Kit) 0 mg IM STAT PRN; Protocol PRN Reason: Hypoglycemia Protocol Hydralazine HCl (Apresoline) 10 mg IV Q6 [facility] Last Admin: 08/23/18 09:00 Dose: 10 mg Vancomycin HCl 1 gm/ Sodium (Chloride) 250 mls @ 166.667 mls/hr IVPB Q48H [facility]; Protocol Last Admin: 08/23/18 12:17 Dose: 166.667 mls/hr Piperacillin Sod/Tazobactam (Sod 2.25 gm/ Sodium Chloride) 100 mls @ 100 mls/hr IVPB Q8 [facility]; Protocol Last Admin: 08/23/18 08:37 Dose: 100 mls/hr Propofol (Diprivan) 1,000 mg in 100 mls @ 6.613 mls/hr IV .Q15H8M [facility]; Protocol Stop: 08/24/18 07:29 Last Titration: 08/23/18 08:55 Dose: 0 mcg/kg/min, 0 mls/hr Insulin Human Lispro (Humalog) 0 units SC ACHS [facility]; Protocol Last Admin: 08/23/18 11:44 Dose: 2 u Meclizine HCl (Antivert) 12.5 mg PO DAILY [facility] Last Admin: 08/18/18 09:27 Dose: 12.5 mg Metformin HCl (Glucophage) 1,000 mg PO BID [facility] Last Admin: 08/16/18 09:34 Dose: Not Given Metoprolol Tartrate (Lopressor) 5 mg IVP Q6 [facility] Last Admin: 08/23/18 09:00 Dose: 5 mg Pantoprazole Sodium (Protonix Ec Tab) 40 mg PO DAILY [facility] Last Admin: 08/23/18 08:37 Dose: 40 mg Sucralfate (Carafate Oral Susp) 1 gm PO [facility] Last Admin: 08/18/18 22:07 Dose: 1 gm - Labs Labs: 08/23/18 06:00 08/23/18 06:00 - Constitutional Appears: No Acute Distress - Eye Exam Eye Exam: Conjunctival injection - ENT Exam ENT Exam: Mucous Membranes Moist - Neck Exam Neck Exam: absent: Lymphadenopathy - Respiratory Exam Respiratory Exam: NORMAL BREATHING PATTERN - Cardiovascular Exam Cardiovascular Exam: absent: Gallop, JVD, Rubs - GI/Abdominal Exam GI & Abdominal Exam: Soft, Normal Bowel Sounds - Extremities Exam Extremities Exam: absent: Calf Tenderness - Back Exam Back Exam: absent: CVA tenderness (L), CVA tenderness (R) - Neurological Exam Neurological Exam: Awake - Skin Skin Exam: absent: Cyanosis Assessment and Plan (1) [place] (acute kidney injury) Assessment & Plan: Assessment & Plan: acute kidney inju Respiratory failure Sepsis MT hypernatremia the plan Serum creatinine improving hypernatremia and hyperchloremia need to change IV fluid D5 W Or D5 and half-normal saline antibiotics as per renal dose Status: Acute (2) Acute gastroenteritis Status: Resolved (3) Anginal equivalent Status: Acute
--- NOTE | 2018-08-23 13:37 | CP.CCUPN ---
CCU Subjective - Physician Review Subjective (Free Text): 08/22/18 14:08 The patient was Seen/interviewed and examined by me at the bedside during ICU round, Medical records reviewed and Management issues were discussed and formulated with the house staff. Events reviewed Patient with Acute respiratory failure, Cardiac arrest s/p resuscitation Patient transferred to ICU 08/19 after ?Cardiac arrest (likely syncopal episodes) while she was in Nuclear department for HIDA scan, she collapsed to the floor, but awake, had palpable pulses and spontanous breathing, so no resuscitative measures performed, she was transferred to the ER, few minutes after arriving to the ER, she was found hypotension to 60/38 and bradycardia, Code Blue was called, Received epinephrine x 4 and subsequently ROSC, she was intubated and TLC placed. Clinically improving, No Vasopressors This morning, she remains orally intubated, on ventilator, on PRVC TV 400, RR 12, FIO2 30% All sedations discontinued Awake, opens eyes to verbal stimuli but not following commands Afebrile, Tmx 99.9 Scheduled for HIDA scan when stable NSR on the monitor Last 24H I&O 3110/1900 This morning labs revealed persistent Leucocytosis 17.4, she is afebrile ( will repeat C/S if any new fever spike) improving renal function BUN/Cr down to 27/1.9 No evidence of active bleed Pt transfused one unit of packed RBC yesterday for H/H trending down to 6.9/21 with appropriate response. CCU Objective - Vital Signs / Intake & Output Vital Signs (Last 4 hours): Vital Signs Temp Pulse Resp BP Pulse Ox 08/23/18 12:00 98.9 F 90 26 H 143/70 100 08/23/18 10:00 96 H 25 H 171/77 H 98 Intake and Output (Last 8hrs): Intake & Output 08/22/18 08/23/18 08/23/18 22:59 06:59 14:59 Intake Total 1425 800 300 Output Total 500 800 250 Balance 925 0 50 Intake: IV 900 700 100 Intake, Piggyback 100 100 Tube Feeding 100 Blood Product 325 Red Blood Cells Cpd As1 325 Lr Unit [id number] Free Water Flush 100 100 Output: Urine 500 800 250 Urethral (Jin) 500 800 250 - Physical Exam Head: Positive for: Atraumatic, Normocephalic Pupils: Positive for: PERRL. Negative for: Sluggish, Non-Reactive, Pinpoint Conjunctiva: Positive for: Normal. Negative for: Injected, Icteric Mouth: Positive for: Moist Mucous Membranes Nose (External): Positive for: Atraumatic Neck: Positive for: Normal Range of Motion Respiratory/Chest: Positive for: Rhonchi Cardiovascular: Positive for: Regular Rate and Rhythm Abdomen: Positive for: Normal Bowel Sounds. Negative for: Tenderness, Distention, Peritoneal Signs Upper Extremity: Positive for: Normal Inspection, NORMAL PULSES, Capillary Refill < 2s. Negative for: Cyanosis, Edema Lower Extremity: Positive for: Normal Inspection. Negative for: Edema, CALF TENDERNESS Neurological: Positive for: Other (on ventilator, opens eyes to verbal stimuli) Psychiatric: Negative for: Alert, Oriented x 3 - Medications Active Medications: Active Medications Generic Name Dose Route Start Last Admin Trade Name Freq PRN Reason Stop Dose Admin Amlodipine Besylate 5 mg 08/22/18 21:00 08/23/18 08:37 Norvasc PO 5 mg Q12 CARMEN Administration Aspirin 81 mg 08/21/18 09:00 08/23/18 08:39 Aspirin Chewable PO 81 mg DAILY CARMEN Administration Atorvastatin Calcium 20 mg 08/13/18 09:00 08/23/18 08:36 Lipitor PO 20 mg DAILY CARMEN Administration Dextrose 0 ml 08/13/18 08:17 Dextrose 50% Inj IV STAT PRN Hypoglycemia Protocol Protocol Dextrose 0 gm 08/13/18 08:17 Glutose 15 PO ONCE PRN Hypoglycemia Protocol Protocol Glucagon 0 mg 08/13/18 08:17 Glucagen Diagnostic Kit IM STAT PRN Hypoglycemia Protocol Protocol Hydralazine HCl 10 mg 08/22/18 16:00 08/23/18 09:00 Apresoline IV 10 mg Q6 CARMEN Administration Vancomycin HCl 1 gm/ Sodium 250 mls @ 166.667 mls/hr 08/19/18 13:15 08/23/18 12:17 Chloride IVPB 166.667 mls/hr Q48H CARMEN Administration Protocol Piperacillin Sod/Tazobactam 100 mls @ 100 mls/hr 08/22/18 18:00 08/23/18 08:37 Sod 2.25 gm/ Sodium Chloride IVPB 100 mls/hr Q8 CARMEN Administration Protocol Propofol 1,000 mg in 100 mls @ 6.613 mls/hr 08/23/18 07:30 08/23/18 08:55 Diprivan IV 08/24/18 07:29 0 mcg/kg/min .[id number] CARMEN 0 mls/hr Titration Protocol 15 MCG/KG/MIN Insulin Human Lispro 0 units 08/13/18 11:30 08/23/18 11:44 Humalog SC 2 u ACHS CARMEN Administration Protocol Meclizine HCl 12.5 mg 08/13/18 09:00 08/18/18 09:27 Antivert PO 12.5 mg DAILY CARMEN Administration Metformin HCl 1,000 mg 08/13/18 09:00 08/16/18 09:34 Glucophage PO Not Given BID CARMEN Metoprolol Tartrate 5 mg 08/22/18 16:00 08/23/18 09:00 Lopressor IVP 5 mg Q6 CARMEN Administration Pantoprazole Sodium 40 mg 08/13/18 09:00 08/23/18 08:37 Protonix Ec Tab PO 40 mg DAILY CARMEN Administration Sucralfate 1 gm 08/14/18 20:30 08/18/18 22:07 Carafate Oral Susp PO 1 gm ACHS CARMEN Administration - Patient Studies Lab Studies: Microbiology Studies 08/19/18 11:13 Blood Culture - Preliminary Blood NO GROWTH AFTER 4 DAYS Lab Studies 08/23/18 08/23/18 08/23/18 Range/Units 11:12 06:00 06:00 WBC 17.4 H (4.8-10.8) K/uL RBC 3.12 L (3.80-5.20) Mil/uL Hgb 9.5 L D (12.0-16.0) g/dL Hct 29.3 L (34.0-47.0) % MCV 93.9 (81.0-99.0) fl MCH 30.4 (27.0-31.0) pg MCHC 32.3 L (33.0-37.0) g/dL RDW 15.9 H (11.5-14.5) % Plt Count 330 D (130-400) K/uL ESR (0-30) mm/hr Haptoglobin (30.0-200.0) mg/dL pCO2 (35-45) mm/Hg pO2 (80-100) mm/Hg HCO3 (21-28) mmol/L ABG pH (7.35-7.45) ABG Total CO2 (22-28) mmol/L ABG O2 Saturation (95-98) % ABG O2 Content (15-23) ML/dL ABG Base Excess (-2.0-3.0) mmol/L ABG Hemoglobin (11.7-17.4) g/dL ABG Carboxyhemoglobin (0.5-1.5) % POC ABG HHb (Measured) (0.0-5.0) % ABG Methemoglobin (0.0-3.0) % ABG O2 Capacity (16-24) mL/dL Masoud Test A-a O2 Difference mm/Hg Hgb O2 Saturation (95.0-98.0) % Vent Mode Mechanical Rate FiO2 % Tidal Volume PEEP Sodium 151 H (132-148) mmol/l Potassium 4.2 (3.6-5.0) MMOL/L Chloride 125 H (98-107) mmol/L Carbon Dioxide 14 L (22-30) mmol/L Anion Gap 16 (10-20) BUN 27 H (7-17) mg/dl Creatinine 1.9 H (0.7-1.2) mg/dl Est GFR ( Amer) 31 Est GFR (Non-Af Amer) 26 POC Glucose (mg/dL) 230 H (65-110) mg/dL Random Glucose 212 H (65-105) mg/dL Calcium 8.2 L (8.4-10.2) mg/dL TIBC (250-450) ug/dL % Saturation (20-55) % Ferritin (11.1-264.0) ng/Ml Total Bilirubin 0.9 (0.2-1.3) mg/dl Direct Bilirubin 0.7 H (0.0-0.4) mg/ml AST 65 H D (14-36) U/L ALT 246 H D (9-52) U/L Alkaline Phosphatase 100 (38-126) U/L Total Protein 6.7 (6.3-8.2) G/DL Albumin 3.3 L D (3.5-5.0) g/dL Globulin 3.4 (2.2-3.9) gm/dL Albumin/Globulin Ratio 1.0 (1.0-2.1) Vitamin B12 (239-931) pg/mL Stool Occult Blood (NEGATIVE) Blood Type Antibody Screen Crossmatch BBK History Checked 08/23/18 08/23/18 08/22/18 Range/Units 05:36 04:27 22:28 WBC (4.8-10.8) K/uL RBC (3.80-5.20) Mil/uL Hgb (12.0-16.0) g/dL Hct (34.0-47.0) % MCV (81.0-99.0) fl MCH (27.0-31.0) pg MCHC (33.0-37.0) g/dL RDW (11.5-14.5) % Plt Count (130-400) K/uL ESR (0-30) mm/hr Haptoglobin (30.0-200.0) mg/dL pCO2 29 L (35-45) mm/Hg pO2 105 H (80-100) mm/Hg HCO3 14.6 L (21-28) mmol/L ABG pH 7.25 L (7.35-7.45) ABG Total CO2 13.6 L (22-28) mmol/L ABG O2 Saturation 99.4 H (95-98) % ABG O2 Content 13.3 L (15-23) ML/dL ABG Base Excess -13.3 L (-2.0-3.0) mmol/L ABG Hemoglobin 9.6 L (11.7-17.4) g/dL ABG Carboxyhemoglobin 1.1 (0.5-1.5) % POC ABG HHb (Measured) 0.6 (0.0-5.0) % ABG Methemoglobin 1.3 (0.0-3.0) % ABG O2 Capacity 13.4 L (16-24) mL/dL Masoud Test Yes A-a O2 Difference 73.0 mm/Hg Hgb O2 Saturation 97.0 (95.0-98.0) % Vent Mode A/c Mechanical Rate 12 FiO2 30.0 % Tidal Volume 400 PEEP 5 Sodium (132-148) mmol/l Potassium (3.6-5.0) MMOL/L Chloride (98-107) mmol/L Carbon Dioxide (22-30) mmol/L Anion Gap (10-20) BUN (7-17) mg/dl Creatinine (0.7-1.2) mg/dl Est GFR ( Amer) Est GFR (Non-Af Amer) POC Glucose (mg/dL) 192 H 188 H (65-110) mg/dL Random Glucose (65-105) mg/dL Calcium (8.4-10.2) mg/dL TIBC (250-450) ug/dL % Saturation (20-55) % Ferritin (11.1-264.0) ng/Ml Total Bilirubin (0.2-1.3) mg/dl Direct Bilirubin (0.0-0.4) mg/ml AST (14-36) U/L ALT (9-52) U/L Alkaline Phosphatase (38-126) U/L Total Protein (6.3-8.2) G/DL Albumin (3.5-5.0) g/dL Globulin (2.2-3.9) gm/dL Albumin/Globulin Ratio (1.0-2.1) Vitamin B12 (239-931) pg/mL Stool Occult Blood (NEGATIVE) Blood Type Antibody Screen Crossmatch BBK History Checked 08/22/18 08/22/18 08/22/18 Range/Units 17:21 16:23 12:39 WBC (4.8-10.8) K/uL RBC (3.80-5.20) Mil/uL Hgb (12.0-16.0) g/dL Hct (34.0-47.0) % MCV (81.0-99.0) fl MCH (27.0-31.0) pg MCHC (33.0-37.0) g/dL RDW (11.5-14.5) % Plt Count (130-400) K/uL ESR (0-30) mm/hr Haptoglobin (30.0-200.0) mg/dL pCO2 (35-45) mm/Hg pO2 (80-100) mm/Hg HCO3 (21-28) mmol/L ABG pH (7.35-7.45) ABG Total CO2 (22-28) mmol/L ABG O2 Saturation (95-98) % ABG O2 Content (15-23) ML/dL ABG Base Excess (-2.0-3.0) mmol/L ABG Hemoglobin (11.7-17.4) g/dL ABG Carboxyhemoglobin (0.5-1.5) % POC ABG HHb (Measured) (0.0-5.0) % ABG Methemoglobin (0.0-3.0) % ABG O2 Capacity (16-24) mL/dL Masoud Test A-a O2 Difference mm/Hg Hgb O2 Saturation (95.0-98.0) % Vent Mode Mechanical Rate FiO2 % Tidal Volume PEEP Sodium (132-148) mmol/l Potassium (3.6-5.0) MMOL/L Chloride (98-107) mmol/L Carbon Dioxide (22-30) mmol/L Anion Gap (10-20) BUN (7-17) mg/dl Creatinine (0.7-1.2) mg/dl Est GFR ( Amer) Est GFR (Non-Af Amer) POC Glucose (mg/dL) 166 H (65-110) mg/dL Random Glucose (65-105) mg/dL Calcium (8.4-10.2) mg/dL TIBC (250-450) ug/dL % Saturation (20-55) % Ferritin 147.0 (11.1-264.0) ng/Ml Total Bilirubin (0.2-1.3) mg/dl Direct Bilirubin (0.0-0.4) mg/ml AST (14-36) U/L ALT (9-52) U/L Alkaline Phosphatase (38-126) U/L Total Protein (6.3-8.2) G/DL Albumin (3.5-5.0) g/dL Globulin (2.2-3.9) gm/dL Albumin/Globulin Ratio (1.0-2.1) Vitamin B12 760 (239-931) pg/mL Stool Occult Blood Positive H (NEGATIVE) Blood Type Antibody Screen Crossmatch BBK History Checked 08/22/18 08/22/18 08/22/18 Range/Units 12:39 12:39 12:39 WBC (4.8-10.8) K/uL RBC (3.80-5.20) Mil/uL Hgb (12.0-16.0) g/dL Hct (34.0-47.0) % MCV (81.0-99.0) fl MCH (27.0-31.0) pg MCHC (33.0-37.0) g/dL RDW (11.5-14.5) % Plt Count (130-400) K/uL ESR 101 H (0-30) mm/hr Haptoglobin 251.1 H (30.0-200.0) mg/dL pCO2 (35-45) mm/Hg pO2 (80-100) mm/Hg HCO3 (21-28) mmol/L ABG pH (7.35-7.45) ABG Total CO2 (22-28) mmol/L ABG O2 Saturation (95-98) % ABG O2 Content (15-23) ML/dL ABG Base Excess (-2.0-3.0) mmol/L ABG Hemoglobin (11.7-17.4) g/dL ABG Carboxyhemoglobin (0.5-1.5) % POC ABG HHb (Measured) (0.0-5.0) % ABG Methemoglobin (0.0-3.0) % ABG O2 Capacity (16-24) mL/dL Masoud Test A-a O2 Difference mm/Hg Hgb O2 Saturation (95.0-98.0) % Vent Mode Mechanical Rate FiO2 % Tidal Volume PEEP Sodium (132-148) mmol/l Potassium (3.6-5.0) MMOL/L Chloride (98-107) mmol/L Carbon Dioxide (22-30) mmol/L Anion Gap (10-20) BUN (7-17) mg/dl Creatinine (0.7-1.2) mg/dl Est GFR ( Amer) Est GFR (Non-Af Amer) POC Glucose (mg/dL) (65-110) mg/dL Random Glucose (65-105) mg/dL Calcium (8.4-10.2) mg/dL TIBC 199 L (250-450) ug/dL % Saturation 14 L (20-55) % Ferritin (11.1-264.0) ng/Ml Total Bilirubin (0.2-1.3) mg/dl Direct Bilirubin (0.0-0.4) mg/ml AST (14-36) U/L ALT (9-52) U/L Alkaline Phosphatase (38-126) U/L Total Protein (6.3-8.2) G/DL Albumin (3.5-5.0) g/dL Globulin (2.2-3.9) gm/dL Albumin/Globulin Ratio (1.0-2.1) Vitamin B12 (239-931) pg/mL Stool Occult Blood (NEGATIVE) Blood Type Antibody Screen Crossmatch BBK History Checked 08/21/18 Range/Units 09:00 WBC (4.8-10.8) K/uL RBC (3.80-5.20) Mil/uL Hgb (12.0-16.0) g/dL Hct (34.0-47.0) % MCV (81.0-99.0) fl MCH (27.0-31.0) pg MCHC (33.0-37.0) g/dL RDW (11.5-14.5) % Plt Count (130-400) K/uL ESR (0-30) mm/hr Haptoglobin (30.0-200.0) mg/dL pCO2 (35-45) mm/Hg pO2 (80-100) mm/Hg HCO3 (21-28) mmol/L ABG pH (7.35-7.45) ABG Total CO2 (22-28) mmol/L ABG O2 Saturation (95-98) % ABG O2 Content (15-23) ML/dL ABG Base Excess (-2.0-3.0) mmol/L ABG Hemoglobin (11.7-17.4) g/dL ABG Carboxyhemoglobin (0.5-1.5) % POC ABG HHb (Measured) (0.0-5.0) % ABG Methemoglobin (0.0-3.0) % ABG O2 Capacity (16-24) mL/dL Masoud Test A-a O2 Difference mm/Hg Hgb O2 Saturation (95.0-98.0) % Vent Mode Mechanical Rate FiO2 % Tidal Volume PEEP Sodium (132-148) mmol/l Potassium (3.6-5.0) MMOL/L Chloride (98-107) mmol/L Carbon Dioxide (22-30) mmol/L Anion Gap (10-20) BUN (7-17) mg/dl Creatinine (0.7-1.2) mg/dl Est GFR ( Amer) Est GFR (Non-Af Amer) POC Glucose (mg/dL) (65-110) mg/dL Random Glucose (65-105) mg/dL Calcium (8.4-10.2) mg/dL TIBC (250-450) ug/dL % Saturation (20-55) % Ferritin (11.1-264.0) ng/Ml Total Bilirubin (0.2-1.3) mg/dl Direct Bilirubin (0.0-0.4) mg/ml AST (14-36) U/L ALT (9-52) U/L Alkaline Phosphatase (38-126) U/L Total Protein (6.3-8.2) G/DL Albumin (3.5-5.0) g/dL Globulin (2.2-3.9) gm/dL Albumin/Globulin Ratio (1.0-2.1) Vitamin B12 (239-931) pg/mL Stool Occult Blood (NEGATIVE) Blood Type O POSITIVE Antibody Screen Negative Crossmatch See Detail BBK History Checked No verified bt Laboratory Results - last 24 hr 08/21/18 08/22/18 08/22/18 09:00 12:39 12:39 WBC RBC Hgb Hct MCV MCH MCHC RDW Plt Count ESR 101 H Haptoglobin pCO2 pO2 HCO3 ABG pH ABG Total CO2 ABG O2 Saturation ABG O2 Content ABG Base Excess ABG Hemoglobin ABG Carboxyhemoglobin POC ABG HHb (Measured) ABG Methemoglobin ABG O2 Capacity Masoud Test A-a O2 Difference Hgb O2 Saturation Vent Mode Mechanical Rate FiO2 Tidal Volume PEEP Sodium Potassium Chloride Carbon Dioxide Anion Gap BUN Creatinine Est GFR ( Amer) Est GFR (Non-Af Amer) POC Glucose (mg/dL) Random Glucose Calcium TIBC 199 L % Saturation 14 L Ferritin Total Bilirubin Direct Bilirubin AST ALT Alkaline Phosphatase Total Protein Albumin Globulin Albumin/Globulin Ratio Vitamin B12 Stool Occult Blood Blood Type O POSITIVE Antibody Screen Negative Crossmatch See Detail BBK History Checked No verified bt 08/22/18 08/22/18 08/22/18 12:39 12:39 16:23 WBC RBC Hgb Hct MCV MCH MCHC RDW Plt Count ESR Haptoglobin 251.1 H pCO2 pO2 HCO3 ABG pH ABG Total CO2 ABG O2 Saturation ABG O2 Content ABG Base Excess ABG Hemoglobin ABG Carboxyhemoglobin POC ABG HHb (Measured) ABG Methemoglobin ABG O2 Capacity Masoud Test A-a O2 Difference Hgb O2 Saturation Vent Mode Mechanical Rate FiO2 Tidal Volume PEEP Sodium Potassium Chloride Carbon Dioxide Anion Gap BUN Creatinine Est GFR ( Amer) Est GFR (Non-Af Amer) POC Glucose (mg/dL) 166 H Random Glucose Calcium TIBC % Saturation Ferritin 147.0 Total Bilirubin Direct Bilirubin AST ALT Alkaline Phosphatase Total Protein Albumin Globulin Albumin/Globulin Ratio Vitamin B12 760 Stool Occult Blood Blood Type Antibody Screen Crossmatch BBK History Checked 08/22/18 08/22/18 08/23/18 17:21 22:28 04:27 WBC RBC Hgb Hct MCV MCH MCHC RDW Plt Count ESR Haptoglobin pCO2 29 L pO2 105 H HCO3 14.6 L ABG pH 7.25 L ABG Total CO2 13.6 L ABG O2 Saturation 99.4 H ABG O2 Content 13.3 L ABG Base Excess -13.3 L ABG Hemoglobin 9.6 L ABG Carboxyhemoglobin 1.1 POC ABG HHb (Measured) 0.6 ABG Methemoglobin 1.3 ABG O2 Capacity 13.4 L Masoud Test Yes A-a O2 Difference 73.0 Hgb O2 Saturation 97.0 Vent Mode A/c Mechanical Rate 12 FiO2 30.0 Tidal Volume 400 PEEP 5 Sodium Potassium Chloride Carbon Dioxide Anion Gap BUN Creatinine Est GFR ( Amer) Est GFR (Non-Af Amer) POC Glucose (mg/dL) 188 H Random Glucose Calcium TIBC % Saturation Ferritin Total Bilirubin Direct Bilirubin AST ALT Alkaline Phosphatase Total Protein Albumin Globulin Albumin/Globulin Ratio Vitamin B12 Stool Occult Blood Positive H Blood Type Antibody Screen Crossmatch BBK History Checked 08/23/18 08/23/18 08/23/18 05:36 06:00 06:00 WBC 17.4 H RBC 3.12 L Hgb 9.5 L D Hct 29.3 L MCV 93.9 MCH 30.4 MCHC 32.3 L RDW 15.9 H Plt Count 330 D ESR Haptoglobin pCO2 pO2 HCO3 ABG pH ABG Total CO2 ABG O2 Saturation ABG O2 Content ABG Base Excess ABG Hemoglobin ABG Carboxyhemoglobin POC ABG HHb (Measured) ABG Methemoglobin ABG O2 Capacity Masoud Test A-a O2 Difference Hgb O2 Saturation Vent Mode Mechanical Rate FiO2 Tidal Volume PEEP Sodium 151 H Potassium 4.2 Chloride 125 H Carbon Dioxide 14 L Anion Gap 16 BUN 27 H Creatinine 1.9 H Est GFR ( Amer) 31 Est GFR (Non-Af Amer) 26 POC Glucose (mg/dL) 192 H Random Glucose 212 H Calcium 8.2 L TIBC % Saturation Ferritin Total Bilirubin 0.9 Direct Bilirubin 0.7 H AST 65 H D ALT 246 H D Alkaline Phosphatase 100 Total Protein 6.7 Albumin 3.3 L D Globulin 3.4 Albumin/Globulin Ratio 1.0 Vitamin B12 Stool Occult Blood Blood Type Antibody Screen Crossmatch BBK History Checked 08/23/18 11:12 WBC RBC Hgb Hct MCV MCH MCHC RDW Plt Count ESR Haptoglobin pCO2 pO2 HCO3 ABG pH ABG Total CO2 ABG O2 Saturation ABG O2 Content ABG Base Excess ABG Hemoglobin ABG Carboxyhemoglobin POC ABG HHb (Measured) ABG Methemoglobin ABG O2 Capacity Masoud Test A-a O2 Difference Hgb O2 Saturation Vent Mode Mechanical Rate FiO2 Tidal Volume PEEP Sodium Potassium Chloride Carbon Dioxide Anion Gap BUN Creatinine Est GFR ( Amer) Est GFR (Non-Af Amer) POC Glucose (mg/dL) 230 H Random Glucose Calcium TIBC % Saturation Ferritin Total Bilirubin Direct Bilirubin AST ALT Alkaline Phosphatase Total Protein Albumin Globulin Albumin/Globulin Ratio Vitamin B12 Stool Occult Blood Blood Type Antibody Screen Crossmatch BBK History Checked Fingerstick Blood Sugar Results: 230 Review of Systems - Review of Systems Systems not reviewed;Unavailable: Intubated Critical Care Progress Note - Ventilator Checklist Head of Bed 30 Degrees: Yes Daily Sedation Vacation: Yes Daily Assessment of Readiness to Wean: Yes Daily Spontaneous Breathing Trial: Yes PUD Prophalyxis: Yes DVT Prophylaxis: Yes Oral Care with Chlorhexidine Gluconate {CHG}: Yes - Extremities/Vascular Does the Patient have a Central Venous Catheter?: Yes Does the Patient need a Central Venous Catheter?: Yes Does the Patient have a Jin Catheter?: Yes Does the Patient need a Jin Catheter?: Yes Assessment/Plan (1) Cardiac arrest Current Visit: Yes Status: Acute Comment: All sedations discontinued, she is Awake, opens eyes to verbal stimuli but not following commands Will get Head CT scan and consider neurology consult if no neurological improv ements Kep off sedations Frequent neuro check (2) Acute respiratory failure Current Visit: Yes Status: Acute Priority: High Comment: Wean to Extubated when fully awake Vent weaning in progress Daily CAT/SBT (3) NSTEMI (non-ST elevated myocardial infarction) Current Visit: Yes Status: Acute Priority: High (4) Bacteremia Current Visit: Yes Status: Acute Priority: High Comment: Most recent culture from 08/19 (Blood, urine and sputum) negative Continue IV antibiotics with IV Vancomycin and Piperacillin Sod/Tazobactam (5) [place] (acute kidney injury) Current Visit: Yes Status: Acute (6) Anginal equivalent Current Visit: Yes Status: Acute (7) Aspiration pneumonia Current Visit: Yes Status: Acute (8) Cholelithiasis Current Visit: Yes Status: Acute
[2018-08-23] MEDS ORDERED: Sodium Chloride 3% for Inhalation 4 ML VIAL.NEB IH PRN (15:11)
--- NOTE | 2018-08-23 16:56 | CT ---
Date of service: 08/23/2018 PROCEDURE: CT HEAD WITHOUT CONTRAST. HISTORY: S/P cardiac arrest COMPARISON: Unenhanced head CT 08/13/2018. TECHNIQUE: Axial computed tomography images were obtained through the head/brain without intravenous contrast. Radiation dose: Total exam DLP = 815.82 mGy-cm. This CT exam was performed using one or more of the following dose reduction techniques: Automated exposure control, adjustment of the mA and/or kV according to patient size, and/or use of iterative reconstruction technique. FINDINGS: HEMORRHAGE: No intracranial hemorrhage. BRAIN: Interval cytotoxic edema is identified at the inferior medial left temporal lobe and the medial left occipital lobe in a pattern compatible with acute subacute infarct left [employer] distribution. Limited local mass effect effaces sulci at the same distribution. No additional mass effect evident. VENTRICLES: Unremarkable. No hydrocephalus. CALVARIUM: Unremarkable. PARANASAL SINUSES: Unremarkable as visualized. No significant inflammatory changes. MASTOID AIR CELLS: Unremarkable as visualized. No inflammatory changes. OTHER FINDINGS: None. IMPRESSION: Interval acute subacute infarct left [employer] distribution. No definite renal hemorrhage. Local mass effect identified without global mass effect appreciable. Follow-up CT or MRI advised. Findings discussed with with Dr. Wan with written down and read back verification, 08/23/2018 4:48 p.m..
--- NOTE | 2018-08-23 17:43 | CP.PCM.CON ---
History of Present Illness - History of Present Illness History of Present Illness: 73 yr old woman who is admitted to ICU after cardiac arrest, now found to have subacute stroke on CT head after lapse of mental status. Miss Whitney has a pmh of 3 year old female with pmHx of HTN, DM, and gastritis arrives to ED with complaints of Epigastric Pain 8/10 associated with 10 episodes of nonbloody, nonbilious vomiting, and 4 episodes of non-bloody diarrhea for 1 day. Patient states onset of symptoms started 2 hours after eating seafood. She also c/o generalized weakness and dizziness. PAtient was kept udder observation for Intractable vomiting. Also C/O dizziness described as vertigo. Past Patient History - Past Medical History & Family History Past Medical History?: Yes Past Family History: Reviewed and not pertinent - Past Social History Smoking Status: Never Smoked Alcohol: None Drugs: Denies - CARDIAC Hx Hypercholesterolemia: Yes Hx Hypertension: Yes - NEUROLOGICAL Hx Dizziness: Yes - HEENT Hx HEENT Problems: No - RENAL Hx Chronic Kidney Disease: No - ENDOCRINE/METABOLIC Hx Diabetes Mellitus Type 2: Yes - HEMATOLOGICAL/ONCOLOGICAL Hx Blood Disorders: No - INTEGUMENTARY Hx Dermatological Problems: No - MUSCULOSKELETAL/RHEUMATOLOGICAL Hx Falls: Yes - GASTROINTESTINAL Hx Gastritis: Yes - GENITOURINARY/GYNECOLOGICAL Hx Genitourinary Disorders: No - PSYCHIATRIC Hx Substance Use: No - SURGICAL HISTORY Hx Surgeries: No - ANESTHESIA Hx Anesthesia: No Meds Allergies/Adverse Reactions: Allergies Allergy/AdvReac Type Severity Reaction Status Date / Time No Known Allergies Allergy Verified 09/20/17 08:57 - Medications Medications: Current Medications Amlodipine Besylate (Norvasc) 5 mg PO Q12 [facility] Last Admin: 08/23/18 08:37 Dose: 5 mg Aspirin (Aspirin Chewable) 81 mg PO DAILY [facility] Last Admin: 08/23/18 08:39 Dose: 81 mg Atorvastatin Calcium (Lipitor) 20 mg PO DAILY [facility] Last Admin: 08/23/18 08:36 Dose: 20 mg Dextrose (Dextrose 50% Inj) 0 ml IV STAT PRN; Protocol PRN Reason: Hypoglycemia Protocol Dextrose (Glutose 15) 0 gm PO ONCE PRN; Protocol PRN Reason: Hypoglycemia Protocol Glucagon (Glucagen Diagnostic Kit) 0 mg IM STAT PRN; Protocol PRN Reason: Hypoglycemia Protocol Hydralazine HCl (Apresoline) 10 mg IV Q6 [facility] Last Admin: 08/23/18 16:44 Dose: 10 mg Vancomycin HCl 1 gm/ Sodium (Chloride) 250 mls @ 166.667 mls/hr IVPB Q48H [facility]; Protocol Last Admin: 08/23/18 12:17 Dose: 166.667 mls/hr Piperacillin Sod/Tazobactam (Sod 2.25 gm/ Sodium Chloride) 100 mls @ 100 mls/hr IVPB Q8 [facility]; Protocol Last Admin: 08/23/18 16:46 Dose: 100 mls/hr Propofol (Diprivan) 1,000 mg in 100 mls @ 6.613 mls/hr IV .Q15H8M [facility]; Protocol Stop: 08/24/18 07:29 Last Titration: 08/23/18 08:55 Dose: 0 mcg/kg/min, 0 mls/hr Insulin Human Lispro (Humalog) 0 units SC [facility]; Protocol Last Admin: 08/23/18 16:45 Dose: 2 u Meclizine HCl (Antivert) 12.5 mg PO DAILY [facility] Last Admin: 08/18/18 09:27 Dose: 12.5 mg Metformin HCl (Glucophage) 1,000 mg PO BID [facility] Last Admin: 08/16/18 09:34 Dose: Not Given Metoprolol Tartrate (Lopressor) 5 mg IVP Q6 [facility] Last Admin: 08/23/18 16:46 Dose: 5 mg Pantoprazole Sodium (Protonix Ec Tab) 40 mg PO DAILY [facility] Last Admin: 08/23/18 08:37 Dose: 40 mg Sucralfate (Carafate Oral Susp) 1 gm PO ACHS [facility] Last Admin: 08/18/18 22:07 Dose: 1 gm Results - Vital Signs Recent Vital Signs: Last Vital Signs Temp 99.1 F 08/23/18 16:00 Pulse 97 H 08/23/18 16:46 Resp 30 H 08/23/18 14:00 BP 114/65 08/23/18 16:46 Pulse Ox 99 08/23/18 16:00 - Labs Result Diagrams: 08/23/18 06:00 08/23/18 06:00 Labs: Laboratory Results - last 24 hr 08/21/18 08/22/18 08/22/18 09:00 17:21 22:28 WBC RBC Hgb Hct MCV MCH MCHC RDW Plt Count pCO2 pO2 HCO3 ABG pH ABG Total CO2 ABG O2 Saturation ABG O2 Content ABG Base Excess ABG Hemoglobin ABG Carboxyhemoglobin POC ABG HHb (Measured) ABG Methemoglobin ABG O2 Capacity Masoud Test A-a O2 Difference Hgb O2 Saturation Vent Mode Mechanical Rate FiO2 Tidal Volume PEEP Sodium Potassium Chloride Carbon Dioxide Anion Gap BUN Creatinine Est GFR ( Amer) Est GFR (Non-Af Amer) POC Glucose (mg/dL) 188 H Random Glucose Calcium Total Bilirubin Direct Bilirubin AST ALT Alkaline Phosphatase Total Protein Albumin Globulin Albumin/Globulin Ratio Stool Occult Blood Positive H Crossmatch See Detail 08/23/18 08/23/18 08/23/18 04:27 05:36 06:00 WBC 17.4 H RBC 3.12 L Hgb 9.5 L D Hct 29.3 L MCV 93.9 MCH 30.4 MCHC 32.3 L RDW 15.9 H Plt Count 330 D pCO2 29 L pO2 105 H HCO3 14.6 L ABG pH 7.25 L ABG Total CO2 13.6 L ABG O2 Saturation 99.4 H ABG O2 Content 13.3 L ABG Base Excess -13.3 L ABG Hemoglobin 9.6 L ABG Carboxyhemoglobin 1.1 POC ABG HHb (Measured) 0.6 ABG Methemoglobin 1.3 ABG O2 Capacity 13.4 L Masoud Test Yes A-a O2 Difference 73.0 Hgb O2 Saturation 97.0 Vent Mode A/c Mechanical Rate 12 FiO2 30.0 Tidal Volume 400 PEEP 5 Sodium Potassium Chloride Carbon Dioxide Anion Gap BUN Creatinine Est GFR ( Amer) Est GFR (Non-Af Amer) POC Glucose (mg/dL) 192 H Random Glucose Calcium Total Bilirubin Direct Bilirubin AST ALT Alkaline Phosphatase Total Protein Albumin Globulin Albumin/Globulin Ratio Stool Occult Blood Crossmatch 08/23/18 08/23/18 08/23/18 06:00 11:12 16:06 WBC RBC Hgb Hct MCV MCH MCHC RDW Plt Count pCO2 pO2 HCO3 ABG pH ABG Total CO2 ABG O2 Saturation ABG O2 Content ABG Base Excess ABG Hemoglobin ABG Carboxyhemoglobin POC ABG HHb (Measured) ABG Methemoglobin ABG O2 Capacity Masoud Test A-a O2 Difference Hgb O2 Saturation Vent Mode Mechanical Rate FiO2 Tidal Volume PEEP Sodium 151 H Potassium 4.2 Chloride 125 H Carbon Dioxide 14 L Anion Gap 16 BUN 27 H Creatinine 1.9 H Est GFR ( Amer) 31 Est GFR (Non-Af Amer) 26 POC Glucose (mg/dL) 230 H 236 H Random Glucose 212 H Calcium 8.2 L Total Bilirubin 0.9 Direct Bilirubin 0.7 H AST 65 H D ALT 246 H D Alkaline Phosphatase 100 Total Protein 6.7 Albumin 3.3 L D Globulin 3.4 Albumin/Globulin Ratio 1.0 Stool Occult Blood Crossmatch Assessment & Plan - Assessment and Plan (Free Text) Assessment: 73 yr old woman with 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 CT head shows that the stroke appears to be about 1-2 days old. She was found to be restless and not following commands this morning. A/P: 1. MRI Brain without contrast as soon as possible. 2. ECHO completed 3. CTA head and neck 4. aspirin when possible but patient has hematuria. 5. dvt prophylaxis. 6. PErmissive hypertension. Thank you Dr. ernandez
--- NOTE | 2018-08-23 19:12 | CARD ---
APPROVED REPORT Date of service: 08/23/2018 EXAM: Two-dimensional and M-mode echocardiogram with Doppler and color Doppler. Other Information Quality : AverageRhythm : Tachycardia Technically limited study due to Pt on Vent INDICATION Resperatory Arrest 2D DIMENSIONS IVSd0.85 (0.7-1.1cm)LVDd4.36 (3.9-5.9cm) LVOT Diameter1.94 (1.8-2.4cm)PWd0.85 (0.7-1.1cm) IVSs0.83 (0.8-1.2cm)LVDs3.07 (2.5-4.0cm) FS (%) 29.5 %PWs0.91 (0.8-1.2cm) M-Mode DIMENSIONS Left Atrium (MM)4.53 (2.5-4.0cm)Aortic Root2.59 (2.2-3.7cm) Aortic Cusp Exc.1.65 (1.5-2.0cm) Aortic Valve AoV Peak Zwkemhol101.1cm/sAoV VTI27.4cmAO Peak GR.10mmHg LVOT Peak Tieucqof989.5cm/sLVOT VTI16.66cmAO Mean GR.6mmHg STUART (VMAX)1.31ax6DGO (VTI)1.02cm2 Mitral Valve MV E Cegzdmmy48.1cm/sMV DECEL [id number] A Znpcaitb90.2cm/s MV EGX42scI/A ratio1.0MVA (PHT)3.24cm2 TDI E/Lateral E'0.0E/Medial E'0.0 Tricuspid Valve TR Peak Ynkqiwaz153ta/sRAP [id number] Peak Gr.39mmHg [id number] LEFT VENTRICLE The left ventricle is normal size. There is normal left ventricular wall thickness. The left ventricular systolic function is normal. The estimated ejection fraction is 60-65% No regional wall motion abnormalities noted.. Transmitral Doppler flow pattern is Grade I-abnormal relaxation pattern. No left ventricle thrombus noted on this study. There is no ventricular septal defect visualized. There is no left ventricular aneurysm. There is no mass noted in the left ventricle. RIGHT VENTRICLE The right ventricle is normal size. There is normal right ventricular wall thickness. The right ventricular systolic function is normal. ATRIA The left atrium is mildly dilated. The right atrium size is normal. The interatrial septum is intact with no evidence for an atrial septal defect. AORTIC VALVE The aortic valve is normal in structure. No aortic regurgitation is present. There is no aortic valvular stenosis. There is no aortic valvular vegetation. MITRAL VALVE The mitral valve is normal in structure. There is no evidence of mitral valve prolapse. There is no mitral valve stenosis. There is mild mitral valve regurgitation noted. TRICUSPID VALVE The tricuspid valve is normal in structure. There is mild tricuspid valve regurgitation noted. RVSP is calculated at 48 mm Hg. There is mild pulmonary hypertension. There is no tricuspid valve prolapse or vegetation. There is no tricuspid valve stenosis. PULMONIC VALVE The pulmonary valve is normal in structure. There is no pulmonic valvular regurgitation. There is no pulmonic valvular stenosis. GREAT VESSELS The aortic root is normal in size. The ascending aorta is normal in size. The pulmonary artery is normal. The IVC is normal in size and collapses >50% with inspiration. PERICARDIAL EFFUSION There is no pericardial effusion. There is no pleural effusion. <Conclusion> The estimated ejection fraction is 60-65% Transmitral Doppler flow pattern is Grade I-abnormal relaxation pattern. The left atrium is mildly dilated. There is mild mitral valve regurgitation noted. There is mild tricuspid valve regurgitation noted. RVSP is calculated at 48 mm Hg. There is mild pulmonary hypertension.
--- NOTE | 2018-08-23 21:56 | CP.PCM.PN ---
Subjective - Date & Time of Evaluation Date of Evaluation: 08/23/18 Time of Evaluation: 15:00 - Subjective Subjective: PT WITH MENTAL STATUS CHANGES AFTER SEDATION DECREASED. SHE IS INTUBATED AND ON CPAP AT TIME OF EXAM. VITALS ARE STABLE. LE DOPPLERS REVEALED DVT. CTA NO PE. HB DECREASING GRADUALLY SINCE ADMISSION DAYS. NA INCREASED TODAY. Objective - Vital Signs/Intake and Output Vital Signs (last 24 hours): Temp Pulse Resp BP Pulse Ox 99.1 F 84 20 167/75 H 100 08/23/18 16:00 08/23/18 21:29 08/23/18 20:00 08/23/18 21:29 08/23/18 20:00 Intake and Output: 08/23/18 08/24/18 18:59 06:59 Intake Total 870 120 Output Total 450 Balance 420 120 - Medications Medications: Current Medications Amlodipine Besylate (Norvasc) 5 mg PO Q12 [facility] Last Admin: 08/23/18 21:15 Dose: 5 mg Aspirin (Aspirin Chewable) 81 mg PO DAILY [facility] Last Admin: 08/23/18 08:39 Dose: 81 mg Atorvastatin Calcium (Lipitor) 20 mg PO DAILY [facility] Last Admin: 08/23/18 08:36 Dose: 20 mg Dextrose (Dextrose 50% Inj) 0 ml IV STAT PRN; Protocol PRN Reason: Hypoglycemia Protocol Dextrose (Glutose 15) 0 gm PO ONCE PRN; Protocol PRN Reason: Hypoglycemia Protocol Glucagon (Glucagen Diagnostic Kit) 0 mg IM STAT PRN; Protocol PRN Reason: Hypoglycemia Protocol Hydralazine HCl (Apresoline) 10 mg IV Q6 [facility] Last Admin: 08/23/18 21:29 Dose: 10 mg Vancomycin HCl 1 gm/ Sodium (Chloride) 250 mls @ 166.667 mls/hr IVPB Q48H [facility]; Protocol Last Admin: 08/23/18 12:17 Dose: 166.667 mls/hr Piperacillin Sod/Tazobactam (Sod 2.25 gm/ Sodium Chloride) 100 mls @ 100 mls/hr IVPB Q8 [facility]; Protocol Last Admin: 08/23/18 16:46 Dose: 100 mls/hr Propofol (Diprivan) 1,000 mg in 100 mls @ 6.613 mls/hr IV .Q15H8M [facility]; Protocol Stop: 08/24/18 07:29 Last Titration: 08/23/18 08:55 Dose: 0 mcg/kg/min, 0 mls/hr Insulin Human Lispro (Humalog) 0 units SC [facility]; Protocol Last Admin: 08/23/18 21:24 Dose: Not Given Meclizine HCl (Antivert) 12.5 mg PO DAILY [facility] Last Admin: 08/18/18 09:27 Dose: 12.5 mg Metformin HCl (Glucophage) 1,000 mg PO BID [facility] Last Admin: 08/16/18 09:34 Dose: Not Given Metoprolol Tartrate (Lopressor) 5 mg IVP Q6 [facility] Last Admin: 08/23/18 21:16 Dose: 5 mg Pantoprazole Sodium (Protonix Ec Tab) 40 mg PO DAILY [facility] Last Admin: 08/23/18 08:37 Dose: 40 mg Sucralfate (Carafate Oral Susp) 1 gm PO [facility] Last Admin: 08/18/18 22:07 Dose: 1 gm - Labs Labs: 08/23/18 06:00 08/23/18 06:00 - Constitutional Appears: Agitated, Other - Head Exam Head Exam: NORMOCEPHALIC. absent: ATRAUMATIC, NORMAL INSPECTION - Eye Exam Eye Exam: EOMI, Normal appearance, PERRL. absent: Conjunctival injection, Nystagmus, Periorbital swelling, Periorbital tenderness, Scleral icterus Pupil Exam: NORMAL ACCOMODATION, PERRL - ENT Exam ENT Exam: Mucous Membranes Dry. absent: Mucous Membranes Moist, Normal Exam, Normal External Ear Exam, Normal Oropharynx, TM's Normal Bilaterally - Neck Exam Neck Exam: Full ROM, Normal Inspection. absent: Lymphadenopathy, Meningismus, Tenderness, Thyromegaly - Respiratory Exam Additional comments: INTUBATED AND SEDATED. - Cardiovascular Exam Cardiovascular Exam: REGULAR RHYTHM, +S1, +S2, Murmur - GI/Abdominal Exam GI & Abdominal Exam: Soft, Normal Bowel Sounds. absent: Bruit, Distended, Firm, Guarding, Rigid, Tenderness, Diminished Bowel Sounds, Hernia, Hyperactive Bowel Sounds, Hypoactive Bowel Sounds, Organomegaly, Pulsatile Mass, Rebound, Mass - Rectal Exam Rectal Exam: Deferred - Extremities Exam Extremities Exam: Normal Capillary Refill, Normal Inspection. absent: Calf Tenderness, Full ROM, Joint Swelling, Pedal Edema, Tenderness - Back Exam Back Exam: NORMAL INSPECTION. absent: CVA tenderness (L), CVA tenderness (R), Full ROM, muscle spasm, paraspinal tenderness, rash noted, tenderness, vertebral tenderness - Neurological Exam Additional comments: INTUBATED, CONFUSED, MOVING ALL EXTREMITIES. NOT FOLLOWING COMMANDS. - Psychiatric Exam Psychiatric exam: Agitated - Skin Skin Exam: Intact, Normal Color, Warm Assessment and Plan (1) Mental status alteration Assessment & Plan: CT HEAD Status: Acute (2) NSTEMI (non-ST elevated myocardial infarction) Assessment & Plan: REPEAT ECHO IMAGES REVIEWED. NO NEW RWMA. MILD TO MOD MR NOTED. REPEAT TROP DECREASED. NEED TO REPEAT EKG Status: Acute (3) Abnormal EKG Status: Acute (4) Type 2 diabetes mellitus with hyperglycemia Status: Chronic (5) Abdominal pain in female Status: Resolved (6) Hypertension Assessment & Plan: BP STABLE Status: Acute (7) Acute respiratory failure Assessment & Plan: CT HEAD PRIOR TO EXTUBATION Status: Chronic (8) DVT (deep venous thrombosis) Assessment & Plan: CONSIDER IVCF LOVENOX HELD Status: Acute (9) Severe anemia Assessment & Plan: LOVENOX STOPPED DUE TO HB DROPPING AND QUAIAC POSITIVE, WELL HEMATURIA. ANEMIA LABS ORDERED AND RESULTS REVIEWED. CONTINUE ASA. Status: Acute (10) Nausea & vomiting Status: Resolved (11) Acute hypernatremia Assessment & Plan: WOULD CONSIDER 1/2 NS AT LOW RATE. Status: Acute - Assessment and Plan (Free Text) Plan: ESR AND WBC ELEVATED WELL. WOULD FUNES CULTURE. MONITOR BP. D/W CRITICAL CARE TEAM AT LENGTH. 75 MIN TOTAL CARE TIME.
--- NOTE | 2018-08-23 23:35 | CP.PCM.PN ---
Subjective - Date & Time of Evaluation Date of Evaluation: 08/22/18 Time of Evaluation: 09:05 Objective - Vital Signs/Intake and Output Vital Signs (last 24 hours): Temp Pulse Resp BP Pulse Ox 98.2 F 96 H 21 192/79 H 100 08/23/18 20:00 08/23/18 22:00 08/23/18 22:00 08/23/18 22:00 08/23/18 22:00 Intake and Output: 08/23/18 08/24/18 18:59 06:59 Intake Total 870 120 Output Total 450 Balance 420 120 - Medications Medications: Current Medications Amlodipine Besylate (Norvasc) 5 mg PO Q12 [facility] Last Admin: 08/23/18 21:15 Dose: 5 mg Aspirin (Aspirin Chewable) 81 mg PO DAILY [facility] Last Admin: 08/23/18 08:39 Dose: 81 mg Atorvastatin Calcium (Lipitor) 20 mg PO DAILY [facility] Last Admin: 08/23/18 08:36 Dose: 20 mg Dextrose (Dextrose 50% Inj) 0 ml IV STAT PRN; Protocol PRN Reason: Hypoglycemia Protocol Dextrose (Glutose 15) 0 gm PO ONCE PRN; Protocol PRN Reason: Hypoglycemia Protocol Glucagon (Glucagen Diagnostic Kit) 0 mg IM STAT PRN; Protocol PRN Reason: Hypoglycemia Protocol Hydralazine HCl (Apresoline) 10 mg IV Q6 [facility] Last Admin: 08/23/18 21:29 Dose: 10 mg Vancomycin HCl 1 gm/ Sodium (Chloride) 250 mls @ 166.667 mls/hr IVPB Q48H [facility]; Protocol Last Admin: 08/23/18 12:17 Dose: 166.667 mls/hr Piperacillin Sod/Tazobactam (Sod 2.25 gm/ Sodium Chloride) 100 mls @ 100 mls/hr IVPB Q8 [facility]; Protocol Last Admin: 08/23/18 16:46 Dose: 100 mls/hr Propofol (Diprivan) 1,000 mg in 100 mls @ 6.613 mls/hr IV .Q15H8M [facility]; Protocol Stop: 08/24/18 07:29 Last Titration: 08/23/18 22:45 Dose: 5 mcg/kg/min, 2.204 mls/hr Insulin Human Lispro (Humalog) 0 units SC ACHS [facility]; Protocol Last Admin: 08/23/18 21:24 Dose: Not Given Meclizine HCl (Antivert) 12.5 mg PO DAILY [facility] Last Admin: 08/18/18 09:27 Dose: 12.5 mg Metformin HCl (Glucophage) 1,000 mg PO BID [facility] Last Admin: 08/16/18 09:34 Dose: Not Given Metoprolol Tartrate (Lopressor) 5 mg IVP Q6 [facility] Last Admin: 08/23/18 21:16 Dose: 5 mg Pantoprazole Sodium (Protonix Ec Tab) 40 mg PO DAILY [facility] Last Admin: 08/23/18 08:37 Dose: 40 mg Sucralfate (Carafate Oral Susp) 1 gm PO ACHS [facility] Last Admin: 08/18/18 22:07 Dose: 1 gm - Labs Labs: 08/23/18 06:00 08/23/18 06:00 Assessment and Plan (1) Acute gastroenteritis Status: Resolved (2) Hypertensive urgency Status: Resolved (3) Abdominal pain in female Status: Resolved (4) Dizziness Status: Acute (5) Type 2 diabetes mellitus with hyperglycemia Status: Chronic (6) NSTEMI (non-ST elevated myocardial infarction) Status: Acute (7) Gallbladder disease Status: Acute (8) A[place]A (acute kidney injury) Status: Acute (9) Cardiac arrest Status: Acute (10) Acute respiratory failure Status: Chronic (11) DVT (deep venous thrombosis) Status: Acute (12) Severe anemia Status: Acute (13) Aspiration pneumonia Status: Acute
--- NOTE | 2018-08-23 23:36 | CP.PCM.PN ---
Subjective - Date & Time of Evaluation Date of Evaluation: 08/23/18 Time of Evaluation: 13:20 Objective - Vital Signs/Intake and Output Vital Signs (last 24 hours): Temp Pulse Resp BP Pulse Ox 98.2 F 96 H 21 192/79 H 100 08/23/18 20:00 08/23/18 22:00 08/23/18 22:00 08/23/18 22:00 08/23/18 22:00 Intake and Output: 08/23/18 08/24/18 18:59 06:59 Intake Total 870 120 Output Total 450 Balance 420 120 - Medications Medications: Current Medications Amlodipine Besylate (Norvasc) 5 mg PO Q12 [facility] Last Admin: 08/23/18 21:15 Dose: 5 mg Aspirin (Aspirin Chewable) 81 mg PO DAILY [facility] Last Admin: 08/23/18 08:39 Dose: 81 mg Atorvastatin Calcium (Lipitor) 20 mg PO DAILY [facility] Last Admin: 08/23/18 08:36 Dose: 20 mg Dextrose (Dextrose 50% Inj) 0 ml IV STAT PRN; Protocol PRN Reason: Hypoglycemia Protocol Dextrose (Glutose 15) 0 gm PO ONCE PRN; Protocol PRN Reason: Hypoglycemia Protocol Glucagon (Glucagen Diagnostic Kit) 0 mg IM STAT PRN; Protocol PRN Reason: Hypoglycemia Protocol Hydralazine HCl (Apresoline) 10 mg IV Q6 [facility] Last Admin: 08/23/18 21:29 Dose: 10 mg Vancomycin HCl 1 gm/ Sodium (Chloride) 250 mls @ 166.667 mls/hr IVPB Q48H [facility]; Protocol Last Admin: 08/23/18 12:17 Dose: 166.667 mls/hr Piperacillin Sod/Tazobactam (Sod 2.25 gm/ Sodium Chloride) 100 mls @ 100 mls/hr IVPB Q8 [facility]; Protocol Last Admin: 08/23/18 16:46 Dose: 100 mls/hr Propofol (Diprivan) 1,000 mg in 100 mls @ 6.613 mls/hr IV .Q15H8M [facility]; Protocol Stop: 08/24/18 07:29 Last Titration: 08/23/18 22:45 Dose: 5 mcg/kg/min, 2.204 mls/hr Insulin Human Lispro (Humalog) 0 units SC ACHS [facility]; Protocol Last Admin: 08/23/18 21:24 Dose: Not Given Meclizine HCl (Antivert) 12.5 mg PO DAILY [facility] Last Admin: 08/18/18 09:27 Dose: 12.5 mg Metformin HCl (Glucophage) 1,000 mg PO BID [facility] Last Admin: 08/16/18 09:34 Dose: Not Given Metoprolol Tartrate (Lopressor) 5 mg IVP Q6 [facility] Last Admin: 08/23/18 21:16 Dose: 5 mg Pantoprazole Sodium (Protonix Ec Tab) 40 mg PO DAILY [facility] Last Admin: 08/23/18 08:37 Dose: 40 mg Sucralfate (Carafate Oral Susp) 1 gm PO ACHS [facility] Last Admin: 08/18/18 22:07 Dose: 1 gm - Labs Labs: 08/23/18 06:00 08/23/18 06:00 Assessment and Plan (1) Acute gastroenteritis Status: Resolved (2) Hypertensive urgency Status: Resolved (3) Abdominal pain in female Status: Resolved (4) Dizziness Status: Acute (5) Type 2 diabetes mellitus with hyperglycemia Status: Chronic (6) NSTEMI (non-ST elevated myocardial infarction) Status: Acute (7) Gallbladder disease Status: Acute (8) [place] (acute kidney injury) Status: Acute (9) Cardiac arrest Status: Acute (10) Acute respiratory failure Status: Chronic (11) DVT (deep venous thrombosis) Status: Acute (12) Severe anemia Status: Acute (13) Aspiration pneumonia Status: Acute
[2018-08-24] MEDS: Metoprolol 1 mg/ml Inj IVP SCH ×4 (03:11→21:22)
[2018-08-24 03:54] LABS: ABG ALLEN TEST YES; ARTERIAL BLOOD GAS HCO3 17.4 mmol/L (21-28); ARTERIAL BLOOD GAS HEMOGLOBIN 12.6 g/dL (11.7-17.4); ARTERIAL BLOOD GAS O2 CAPACITY 17.4 mL/dL (16-24); ARTERIAL BLOOD GAS O2 CONTENT 17.3 ML/dL (15-23); ARTERIAL BLOOD GAS O2 SAT 99.5 % (95-98); ARTERIAL BLOOD GAS PCO2 36 mm/Hg (35-45); ARTERIAL BLOOD GAS PH 7.27 (7.35-7.45); ARTERIAL BLOOD GAS PO2 130 mm/Hg (80-100); ARTERIAL BLOOD GAS TCO2 17.6 mmol/L (22-28)
[2018-08-24 05:16] LABS: HEMOGLOBIN 9.3 g/dL (12.0-16.0); MEAN CELL VOLUME 93.4 fl (81.0-99.0); MEAN CORPUSCULAR HEMOGLOBIN 29.7 pg (27.0-31.0); MEAN CORPUSCULAR HGB CONC 31.8 g/dL (33.0-37.0); RBC 3.12 Mil/uL (3.80-5.20); RED CELL DISTRIBUTION WIDTH 16.4 % (11.5-14.5); WHITE BLOOD COUNT 17.3 K/uL (4.8-10.8)
[2018-08-24] MEDS: Insulin Lispro (humaLOG) 100 Units/ml Inj SC SCH ×5 (06:37→21:28)
[2018-08-24 07:09] LABS: ALB/GLOB RATIO 0.9 (1.0-2.1); ALBUMIN 3.1 g/dL (3.5-5.0); CALCIUM 8.5 mg/dL (8.4-10.2)
[2018-08-24] MEDS: Pantoprazole 40 mg EC Tab PO SCH (08:36)
--- NOTE | 2018-08-24 09:43 | CP.PCM.PN ---
Subjective - Date & Time of Evaluation Date of Evaluation: 08/24/18 Time of Evaluation: 09:42 - Subjective Subjective: General Surgery Pt seen and examined this AM. Pt remains intubated and sedated. No visitors present at bedside. Pt receiving tubefeeding. As per chart review, pt had a CVA. Labs and vitals noted. PE: General: Pt laying in bed in NAD. Intubated, OGT in place. Skin: warm and dry Cardio: s1s2, Tachycardic (per monitor in 120s) Lungs: CTA bilaterally in anterior lung bertrand Abd: Soft, (-) distended, (-) apparent tenderness Extr: (+) 1+ pitting edema of upper and lower extremities A/P Gastritis, Cholelithiasis, abdominal pain, NV, CVA Pt to get HIDA when medically stable No surgical intervention required at this time Surgery signing off, please reconsult as needed. Objective - Vital Signs/Intake and Output Vital Signs (last 24 hours): Temp Pulse Resp BP Pulse Ox 97.9 F 110 H 23 177/80 H 100 08/24/18 04:00 08/24/18 08:37 08/24/18 05:57 08/24/18 08:37 08/24/18 05:57 Intake and Output: 08/24/18 08/24/18 06:59 18:59 Intake Total 700 Output Total 525 Balance 175 - Medications Medications: Current Medications Amlodipine Besylate (Norvasc) 5 mg PO Q12 [facility] Last Admin: 08/24/18 08:37 Dose: 5 mg Aspirin (Aspirin Chewable) 81 mg PO DAILY [facility] Last Admin: 08/24/18 08:40 Dose: 81 mg Atorvastatin Calcium (Lipitor) 20 mg PO DAILY [facility] Last Admin: 08/24/18 08:39 Dose: 20 mg Dextrose (Dextrose 50% Inj) 0 ml IV STAT PRN; Protocol PRN Reason: Hypoglycemia Protocol Dextrose (Glutose 15) 0 gm PO ONCE PRN; Protocol PRN Reason: Hypoglycemia Protocol Glucagon (Glucagen Diagnostic Kit) 0 mg IM STAT PRN; Protocol PRN Reason: Hypoglycemia Protocol Hydralazine HCl (Apresoline) 10 mg IV Q6 [facility] Last Admin: 08/24/18 04:15 Dose: 10 mg Vancomycin HCl 1 gm/ Sodium (Chloride) 250 mls @ 166.667 mls/hr IVPB Q48H [facility]; Protocol Last Admin: 08/23/18 12:17 Dose: 166.667 mls/hr Piperacillin Sod/Tazobactam (Sod 2.25 gm/ Sodium Chloride) 100 mls @ 100 mls/hr IVPB Q8 [facility]; Protocol Last Admin: 08/24/18 08:36 Dose: 100 mls/hr Insulin Human Lispro (Humalog) 0 units SC ACHS [facility]; Protocol Last Admin: 08/24/18 06:38 Dose: 3 u Meclizine HCl (Antivert) 12.5 mg PO DAILY [facility] Last Admin: 08/18/18 09:27 Dose: 12.5 mg Metformin HCl (Glucophage) 1,000 mg PO BID [facility] Last Admin: 08/16/18 09:34 Dose: Not Given Metoprolol Tartrate (Lopressor) 5 mg IVP Q6 [facility] Last Admin: 08/24/18 03:11 Dose: 5 mg Pantoprazole Sodium (Protonix Ec Tab) 40 mg PO DAILY [facility] Last Admin: 08/24/18 08:36 Dose: 40 mg Sucralfate (Carafate Oral Susp) 1 gm PO ACHS [facility] Last Admin: 08/18/18 22:07 Dose: 1 gm - Labs Labs: 08/24/18 04:30 08/24/18 04:30
--- NOTE | 2018-08-24 10:36 | CP.CCUPN ---
CCU Subjective - Physician Review Subjective (Free Text): Not sedated, not following commands, did not tolerate SBT on CPAP / PS, RR increased to 34 and RSBI = 154. S/p one unit PRBCs yesterday for low HGB, no note of any active bleeding nor s/sx of acute blood loss. Other vitals and I/O's reviewed. Temp up to 100.4F now, dies not appear diaphoretic, nor in any distress. SBPs 170's, HR 90's. Fluid balance positive. ROS: No other pertinent negs or positives on 10+ system review obtainable due to unresponsiveness, on MV. PMSFH: DM II, HTN, Gastritis. All other Nursing and physician documentation reviewed to date; no new pertinent info noted relevant to current medical problems. EXAM- HEENT: no icterus, no gaze preference, Pupils 3 mm and reactive NECK: No JVD visible, supple, carotids equal upstroke bilat/no bruit CHEST: decreased BS at the bases, no wheezes audible HEART: regular, distant, S1S2, no rubs ABD: soft and nontender, no tympany, no guarding, no organomegaly, BS absent. EXT: no LE edema, no calf tenderness or palpable cords, distal pulses intact and symmetrical. NEURO: no focal motor weakness SKIN: no rashes, warm and dry LABS: WBC= 17.3 HGB= 9.3 PLTs= 34K No coags on admission, nor recently. Na= 142 K= 4.9 RV=834 HCO3= 24 BUN/Cr= 21/1.6 BS= 224 CXR: -There is no admission CXR. - ETT OK above kevon, RUL interstitial changes noted ( my interp) IMPRESSION / MAJOR PROBLEMS NOW: 1. Hypotension / Bradycardia 2 Antihypertensive meds, r/o recurrent myocardial ischemia / AMI; on MV support post-resuscitation from Code Blue, r/o Anoxic Encephalopathy 2. Acute / Subacute NSTEMI 3. Coag neg Staph Bacteremia 4. Azotemia / Dehydration, r/o AUR[place]A ATN 5. r/o GB / Biliary Tract disease 6. Uncontrolled DM II PLAN: 1. Not amenable to extubation today; CXR shows persistent infiltrate, may be aspiration-related. Check repeat sputum Cx, Vanco added to Zosyn already empirically. 2. Would resume LMWH Therapeutically, was on it for NSTEMI and needs it for DVT RLE, otherwise consider IVC filter. CHeck Coags. 3. MRI pending for further eval of Acute/ Subacute Left CVA 4. BP-lowering if any sustained elevations with MAP above 120. 5. Neurochecks, stop Propofol if tolerable.
[2018-08-24] MEDS: Acetaminophen 650mg/20.3ml solution UD NG PRN ×2 (11:04→16:09)
--- NOTE | 2018-08-24 11:48 | RAD ---
Date of service: 08/24/2018 HISTORY: Ventilator patient. COMPARISON: Multiple serial examinations preceding the most recent study: August 23, 2018. FINDINGS: LUNGS: No active pulmonary disease. PLEURA: No significant pleural effusion identified, no pneumothorax apparent. CARDIOVASCULAR: No radiographic findings to suggest acute or significant cardiovascular disease. Atherosclerotic calcifications identified primarily aortic arch. OSSEOUS STRUCTURES: No significant abnormalities. VISUALIZED UPPER ABDOMEN: Normal. OTHER FINDINGS: Stable and satisfactory position of support apparatus including endotracheal tube and nasogastric tube. IMPRESSION: No significant interval change compared to the prior examination(s).
[2018-08-24] MEDS: Enoxaparin 80 mg Syringe SC SCH (11:56)
--- NOTE | 2018-08-24 12:24 | CP.PCM.PN ---
Subjective - Date & Time of Evaluation Date of Evaluation: 08/24/18 Time of Evaluation: 07:00 - Subjective Subjective: intubated febrile has TLC in groin needs PICC line cultures sent Objective - Vital Signs/Intake and Output Vital Signs (last 24 hours): Temp Pulse Resp BP Pulse Ox 100.6 F H 126 H 30 H 184/88 H 100 08/24/18 11:04 08/24/18 10:00 08/24/18 10:00 08/24/18 10:00 08/24/18 10:00 Intake and Output: 08/24/18 08/24/18 06:59 18:59 Intake Total 700 520 Output Total 525 200 Balance 175 320 - Medications Medications: Current Medications Acetaminophen (Tylenol 650mg/20.3ml Solution Ud) 650 mg NG Q6 PRN PRN Reason: Temperature Last Admin: 08/24/18 11:04 Dose: 650 mg Amlodipine Besylate (Norvasc) 5 mg PO Q12 [facility] Last Admin: 08/24/18 08:37 Dose: 5 mg Aspirin (Aspirin Chewable) 81 mg PO DAILY [facility] Last Admin: 08/24/18 08:40 Dose: 81 mg Atorvastatin Calcium (Lipitor) 20 mg PO DAILY [facility] Last Admin: 08/24/18 08:39 Dose: 20 mg Dextrose (Dextrose 50% Inj) 0 ml IV STAT PRN; Protocol PRN Reason: Hypoglycemia Protocol Dextrose (Glutose 15) 0 gm PO ONCE PRN; Protocol PRN Reason: Hypoglycemia Protocol Enoxaparin Sodium (Lovenox) 70 mg SC DAILY [facility]; Protocol Last Admin: 08/24/18 11:56 Dose: 70 mg Glucagon (Glucagen Diagnostic Kit) 0 mg IM STAT PRN; Protocol PRN Reason: Hypoglycemia Protocol Hydralazine HCl (Apresoline) 10 mg IV Q6 [facility] Last Admin: 08/24/18 09:56 Dose: 10 mg Vancomycin HCl 1 gm/ Sodium (Chloride) 250 mls @ 166.667 mls/hr IVPB Q48H [facility]; Protocol Last Admin: 08/23/18 12:17 Dose: 166.667 mls/hr Piperacillin Sod/Tazobactam (Sod 2.25 gm/ Sodium Chloride) 100 mls @ 100 mls/hr IVPB Q8 [facility]; Protocol Last Admin: 08/24/18 08:36 Dose: 100 mls/hr Insulin Human Lispro (Humalog) 0 units SC [facility]; Protocol Last Admin: 08/24/18 11:32 Dose: 6 u Meclizine HCl (Antivert) 12.5 mg PO DAILY [facility] Last Admin: 08/18/18 09:27 Dose: 12.5 mg Metformin HCl (Glucophage) 1,000 mg PO BID [facility] Last Admin: 08/16/18 09:34 Dose: Not Given Metoprolol Tartrate (Lopressor) 5 mg IVP Q6 [facility] Last Admin: 08/24/18 09:51 Dose: 5 mg Pantoprazole Sodium (Protonix Ec Tab) 40 mg PO DAILY [facility] Last Admin: 08/24/18 08:36 Dose: 40 mg Sucralfate (Carafate Oral Susp) 1 gm PO [facility] Last Admin: 08/18/18 22:07 Dose: 1 gm - Labs Labs: 08/24/18 04:30 08/24/18 04:30 - Constitutional Appears: Chronically Ill - Head Exam Head Exam: NORMOCEPHALIC - Eye Exam Eye Exam: absent: Scleral icterus - ENT Exam ENT Exam: Mucous Membranes Dry - Neck Exam Neck Exam: absent: Thyromegaly - Respiratory Exam Respiratory Exam: Decreased Breath Sounds - Cardiovascular Exam Cardiovascular Exam: REGULAR RHYTHM - GI/Abdominal Exam GI & Abdominal Exam: Distended - Rectal Exam Rectal Exam: Deferred - Exam Exam: NORMAL INSPECTION - Extremities Exam Extremities Exam: absent: Pedal Edema - Back Exam Back Exam: absent: CVA tenderness (L), CVA tenderness (R) - Neurological Exam Neurological Exam: Altered, CN II-XII Intact - Psychiatric Exam Psychiatric exam: Normal Mood - Skin Skin Exam: Dry, Intact Assessment and Plan (1) Dehydration Status: Acute (2) NSTEMI (non-ST elevated myocardial infarction) Status: Acute (3) Nausea & vomiting Status: Resolved (4) Type 2 diabetes mellitus with hyperglycemia Status: Chronic (5) Abdominal pain Status: Acute (6) Gallbladder disease Status: Acute (7) Pneumonia Status: Acute - Assessment and Plan (Free Text) Assessment: add merrem reculture d/c TLC JORDYN-
--- NOTE | 2018-08-24 13:02 | CP.PCM.PN ---
Subjective - Date & Time of Evaluation Date of Evaluation: 08/24/18 Time of Evaluation: 13:02 - Subjective Subjective: remain on respirator Patient confused somewhat? Fever Objective - Vital Signs/Intake and Output Vital Signs (last 24 hours): Temp Pulse Resp BP Pulse Ox 100.6 F H 126 H 30 H 184/88 H 100 08/24/18 11:04 08/24/18 10:00 08/24/18 10:00 08/24/18 10:00 08/24/18 10:00 Intake and Output: 08/24/18 08/24/18 06:59 18:59 Intake Total 700 520 Output Total 525 200 Balance 175 320 - Medications Medications: Current Medications Acetaminophen (Tylenol 650mg/20.3ml Solution Ud) 650 mg NG Q6 PRN PRN Reason: Temperature Last Admin: 08/24/18 11:04 Dose: 650 mg Amlodipine Besylate (Norvasc) 5 mg PO Q12 [facility] Last Admin: 08/24/18 08:37 Dose: 5 mg Aspirin (Aspirin Chewable) 81 mg PO DAILY [facility] Last Admin: 08/24/18 08:40 Dose: 81 mg Atorvastatin Calcium (Lipitor) 20 mg PO DAILY [facility] Last Admin: 08/24/18 08:39 Dose: 20 mg Dextrose (Dextrose 50% Inj) 0 ml IV STAT PRN; Protocol PRN Reason: Hypoglycemia Protocol Dextrose (Glutose 15) 0 gm PO ONCE PRN; Protocol PRN Reason: Hypoglycemia Protocol Enoxaparin Sodium (Lovenox) 70 mg SC DAILY [facility]; Protocol Last Admin: 08/24/18 11:56 Dose: 70 mg Glucagon (Glucagen Diagnostic Kit) 0 mg IM STAT PRN; Protocol PRN Reason: Hypoglycemia Protocol Hydralazine HCl (Apresoline) 10 mg IV Q6 [facility] Last Admin: 08/24/18 09:56 Dose: 10 mg Vancomycin HCl 1 gm/ Sodium (Chloride) 250 mls @ 166.667 mls/hr IVPB Q48H [facility]; Protocol Last Admin: 08/23/18 12:17 Dose: 166.667 mls/hr Meropenem 500 mg/ Sodium (Chloride) 100 mls @ 100 mls/hr IVPB Q8 [facility]; Protocol Insulin Human Lispro (Humalog) 0 units SC ACHS [facility]; Protocol Last Admin: 08/24/18 11:32 Dose: 6 u Meclizine HCl (Antivert) 12.5 mg PO DAILY [facility] Last Admin: 08/18/18 09:27 Dose: 12.5 mg Metformin HCl (Glucophage) 1,000 mg PO BID [facility] Last Admin: 08/16/18 09:34 Dose: Not Given Metoprolol Tartrate (Lopressor) 5 mg IVP Q6 [facility] Last Admin: 08/24/18 09:51 Dose: 5 mg Pantoprazole Sodium (Protonix Ec Tab) 40 mg PO DAILY [facility] Last Admin: 08/24/18 08:36 Dose: 40 mg Sucralfate (Carafate Oral Susp) 1 gm PO ACHS [facility] Last Admin: 08/18/18 22:07 Dose: 1 gm - Labs Labs: 08/24/18 04:30 08/24/18 04:30 - Constitutional Appears: No Acute Distress - Eye Exam Eye Exam: Conjunctival injection - ENT Exam ENT Exam: Mucous Membranes Moist - Neck Exam Neck Exam: absent: Lymphadenopathy - Respiratory Exam Respiratory Exam: Rhonchi Additional comments: on respirator - Cardiovascular Exam Cardiovascular Exam: absent: Gallop, JVD, Rubs - GI/Abdominal Exam GI & Abdominal Exam: Soft, Normal Bowel Sounds - Extremities Exam Extremities Exam: absent: Calf Tenderness - Back Exam Back Exam: absent: CVA tenderness (L), CVA tenderness (R) - Neurological Exam Neurological Exam: Awake - Skin Skin Exam: absent: Cyanosis Assessment and Plan (1) AUR[place]A (acute kidney injury) Assessment & Plan: acute kidney inju Respiratory failure Sepsis MD hypernatremia fever the plan Change IV D5W Worsening hypernatremia serum sodium 152 antibiotics as per adjusted dose for creatinine. Respiratory management as per primary team Status: Acute (2) Acute gastroenteritis Status: Resolved (3) Anginal equivalent Status: Acute
[2018-08-24] MEDS: Meropenem 500 MG in Sodium Chloride 0.9% 100 ML IVPB SCH ×2 (13:57→16:07)
[2018-08-24] MEDS ORDERED: Acetaminophen 650mg/20.3ml solution UD PO ONE (20:30)
[2018-08-24] MEDS: Propofol 10 mg/ml 1,000 MG/100 ML VIAL IV SCH (20:36)
[2018-08-25] MEDS: Meropenem 500 MG in Sodium Chloride 0.9% 100 ML IVPB SCH ×3 (00:02→16:34)
[2018-08-25] MEDS: Acetaminophen 650mg/20.3ml solution UD NG PRN (01:06)
[2018-08-25] MEDS: Metoprolol 1 mg/ml Inj IVP SCH ×2 (03:28→09:00)
[2018-08-25 04:35] LABS: ABG ALLEN TEST YES; ARTERIAL BLOOD GAS HCO3 21.4 mmol/L (21-28); ARTERIAL BLOOD GAS O2 SAT 99.6 % (95-98); ARTERIAL BLOOD GAS PCO2 32 mm/Hg (35-45); ARTERIAL BLOOD GAS PH 7.39 (7.35-7.45); ARTERIAL BLOOD GAS PO2 124 mm/Hg (80-100); ARTERIAL BLOOD GAS TCO2 20.4 mmol/L (22-28)
[2018-08-25 05:13] LABS: HEMOGLOBIN 8.9 g/dL (12.0-16.0); MEAN CELL VOLUME 93.2 fl (81.0-99.0); MEAN CORPUSCULAR HEMOGLOBIN 30.3 pg (27.0-31.0); MEAN CORPUSCULAR HGB CONC 32.5 g/dL (33.0-37.0); RBC 2.95 Mil/uL (3.80-5.20); RED CELL DISTRIBUTION WIDTH 15.9 % (11.5-14.5); WHITE BLOOD COUNT 15.1 K/uL (4.8-10.8)
[2018-08-25 05:21] LABS: INR 1.2; PROTHROMBIN TIME 13.3 Seconds (9.8-13.1)
[2018-08-25 05:23] LABS: PARTIAL THROMBOPLASTIN TIME 29.9 Seconds (25.6-37.1)
[2018-08-25 05:27] LABS: ALB/GLOB RATIO 0.8 (1.0-2.1); ALBUMIN 2.7 g/dL (3.5-5.0); CALCIUM 8.5 mg/dL (8.4-10.2)
[2018-08-25] MEDS: Insulin Lispro (humaLOG) 100 Units/ml Inj SC SCH ×4 (06:37→21:06)
[2018-08-25] MEDS: Enoxaparin 80 mg Syringe SC SCH (08:35)
[2018-08-25] MEDS: Pantoprazole 40 mg EC Tab PO SCH (08:35)
--- NOTE | 2018-08-25 09:26 | CP.PCM.PN ---
Subjective - Date & Time of Evaluation Date of Evaluation: 08/25/18 Time of Evaluation: 09:26 - Subjective Subjective: remain on respirator Vital sign noted Objective - Vital Signs/Intake and Output Vital Signs (last 24 hours): Temp Pulse Resp BP Pulse Ox 98.8 F 104 H 15 186/91 H 99 08/25/18 08:00 08/25/18 09:00 08/25/18 08:00 08/25/18 09:00 08/25/18 08:00 Intake and Output: 08/25/18 08/25/18 06:59 18:59 Intake Total 1050 Output Total 750 Balance 300 - Medications Medications: Current Medications Acetaminophen (Tylenol 650mg/20.3ml Solution Ud) 650 mg NG Q6 PRN PRN Reason: Temperature Last Admin: 08/25/18 01:06 Dose: 650 mg Amlodipine Besylate (Norvasc) 5 mg PO Q12 [facility] Last Admin: 08/25/18 08:33 Dose: 5 mg Aspirin (Aspirin Chewable) 81 mg PO DAILY [facility] Last Admin: 08/25/18 08:35 Dose: 81 mg Atorvastatin Calcium (Lipitor) 20 mg PO DAILY [facility] Last Admin: 08/25/18 08:35 Dose: 20 mg Dextrose (Dextrose 50% Inj) 0 ml IV STAT PRN; Protocol PRN Reason: Hypoglycemia Protocol Dextrose (Glutose 15) 0 gm PO ONCE PRN; Protocol PRN Reason: Hypoglycemia Protocol Enoxaparin Sodium (Lovenox) 70 mg SC DAILY [facility]; Protocol Last Admin: 08/25/18 08:35 Dose: 70 mg Glucagon (Glucagen Diagnostic Kit) 0 mg IM STAT PRN; Protocol PRN Reason: Hypoglycemia Protocol Hydralazine HCl (Apresoline) 10 mg IV Q6 [facility] Last Admin: 08/25/18 03:31 Dose: 10 mg Vancomycin HCl 1 gm/ Sodium (Chloride) 250 mls @ 166.667 mls/hr IVPB Q48H [facility]; Protocol Last Admin: 08/23/18 12:17 Dose: 166.667 mls/hr Meropenem 500 mg/ Sodium (Chloride) 100 mls @ 100 mls/hr IVPB Q8 [facility]; Protocol Last Admin: 08/25/18 08:34 Dose: 100 mls/hr Insulin Human Lispro (Humalog) 0 units SC ACHS [facility]; Protocol Last Admin: 08/25/18 06:37 Dose: 3 u Meclizine HCl (Antivert) 12.5 mg PO DAILY [facility] Last Admin: 08/18/18 09:27 Dose: 12.5 mg Metformin HCl (Glucophage) 1,000 mg PO BID [facility] Last Admin: 08/16/18 09:34 Dose: Not Given Metoprolol Tartrate (Lopressor) 5 mg IVP Q6 [facility] Last Admin: 08/25/18 09:00 Dose: 5 mg Pantoprazole Sodium (Protonix Ec Tab) 40 mg PO DAILY [facility] Last Admin: 08/25/18 08:35 Dose: 40 mg Sucralfate (Carafate Oral Susp) 1 gm PO ACHS [facility] Last Admin: 08/18/18 22:07 Dose: 1 gm - Labs Labs: 08/25/18 05:00 08/25/18 05:00 PT 13.3 Seconds (9.8-13.1) H 08/25/18 05:00 INR 1.2 08/25/18 05:00 APTT 29.9 Seconds (25.6-37.1) 08/25/18 05:00 - Constitutional Appears: No Acute Distress - Eye Exam Eye Exam: Conjunctival injection - ENT Exam ENT Exam: Mucous Membranes Dry - Neck Exam Neck Exam: absent: Lymphadenopathy - Respiratory Exam Respiratory Exam: Rhonchi - Cardiovascular Exam Cardiovascular Exam: absent: Gallop, JVD, Rubs - GI/Abdominal Exam GI & Abdominal Exam: Soft, Normal Bowel Sounds - Extremities Exam Extremities Exam: absent: Calf Tenderness - Back Exam Back Exam: absent: CVA tenderness (L), CVA tenderness (R) - Neurological Exam Neurological Exam: Altered - Skin Skin Exam: absent: Cyanosis Assessment and Plan (1) AUR[place]A (acute kidney injury) Assessment & Plan: acute kidney inju Respiratory failure Sepsis ME hypernatremia,worsening serum sodium 154 fever recommendation Apparently patient is not receiving intravenous D5W. Therefore we will give water 200 mL every 4 hours through the NG tube management of infection antibiotics as per renal dose Respiratory management Kidney function stable Status: Acute (2) Acute gastroenteritis Status: Resolved (3) Anginal equivalent Status: Acute
--- NOTE | 2018-08-25 10:00 | CP.CCUPN ---
CCU Subjective - Physician Review Subjective (Free Text): When sedated on Propofol, at RASS neg3, good tolerance to CPA PS trials, extubation not done today due to multiple electrolyte abnormalities today and recurrent fevers, up to 102.5F. Other vitals and I/O's reviewed, does not appear diaphoretic, nor in any distress. SBPs 160's, HR 90's. Fluid balance positive. ROS: No other pertinent negs or positives on 10+ system review obtainable due to sedation, on MV. PMSFH: DM II, HTN, Gastritis. All other Nursing and physician documentation reviewed to date; no new pertinent info noted relevant to current medical problems. EXAM- HEENT: no icterus, no gaze preference, Pupils 3 mm and reactive NECK: No JVD visible, supple, carotids equal upstroke bilat/no bruit CHEST: decreased BS at the bases, no wheezes audible HEART: regular, distant, S1S2, no rubs ABD: soft and nontender, no tympany, no guarding, no organomegaly, BS absent. EXT: no LE edema, no calf tenderness or palpable cords, distal pulses intact and symmetrical. NEURO: no focal motor weakness SKIN: no rashes, warm and dry LABS: WBC= 15.1 HGB= 8.9 PLTs= 290K INR- 1.2 Lactate = 1.1 Na= 154 K= 3.4 LJ=128 HCO3= 19 BUN/Cr= 40/2.0 BS= 302 CXR: -There is no admission CXR. - ETT OK above kevon, RUL and bibasilar haziness ( my interp) IMPRESSION / MAJOR PROBLEMS NOW: 1. s/p Last week: Hypotension / Bradycardia 2 Antihypertensive meds, r/o recurrent myocardial ischemia / AMI; on MV support post-resuscitation from Code Blue, r/o Anoxic Encephalopathy 2. Acute / Subacute NSTEMI 3. Coag neg Staph Bacteremia 4. Azotemia / Dehydration, r/o [place] ATN 5. r/o GB / Biliary Tract disease 6. Uncontrolled DM II PLAN: 1. No extubation today until fevers better controlled and electrolytes normalized. 2. Free water increased by Nephro. 3. Vanco / Merrem, repeated BCs yesterday, obtained from TLC; may need to chnage lines. 4. Resumed therapeutic Lovenox, watch serial Hgb. 5. Anti-hypertensive regimen noted, watch renal response to BP lowering.
--- NOTE | 2018-08-25 10:54 | RAD ---
Date of service: 08/25/2018 HISTORY: reevaluate/ EET placement COMPARISON: 08/24/2018 FINDINGS: LUNGS: Questionable developing right basilar opacity. Possible pneumonia. Follow-up advised. PLEURA: No significant pleural effusion identified, no pneumothorax apparent. CARDIOVASCULAR: No aortic atherosclerotic calcification present. Normal cardiac size. No congestive change. ET tube tip 4.1 cm above tracheal kevon. NG tube extends to upper abdomen.. OSSEOUS STRUCTURES: No significant abnormalities. VISUALIZED UPPER ABDOMEN: Normal. OTHER FINDINGS: None. IMPRESSION: Possible developing right basilar opacity. Follow-up advised.
[2018-08-25] MEDS: Propofol 10 mg/ml 1,000 MG/100 ML VIAL IV SCH ×3 (12:12→20:20)
--- NOTE | 2018-08-25 12:26 | CP.PCM.PN ---
Subjective - Date & Time of Evaluation Date of Evaluation: 08/25/18 Time of Evaluation: 12:22 - Subjective Subjective: pt intubated and on cpap. bp mildly elevated. hr 80. awake. remains unable to follow commands. Objective - Vital Signs/Intake and Output Vital Signs (last 24 hours): Temp Pulse Resp BP Pulse Ox 96.5 F L 80 15 168/77 H 100 08/25/18 12:00 08/25/18 12:00 08/25/18 12:00 08/25/18 12:00 08/25/18 12:00 Intake and Output: 08/25/18 08/25/18 06:59 18:59 Intake Total 1050 600 Output Total 750 Balance 300 600 - Medications Medications: Current Medications Acetaminophen (Tylenol 650mg/20.3ml Solution Ud) 650 mg NG Q6 PRN PRN Reason: Temperature Last Admin: 08/25/18 01:06 Dose: 650 mg Amlodipine Besylate (Norvasc) 5 mg PO Q12 [facility] Last Admin: 08/25/18 08:33 Dose: 5 mg Aspirin (Aspirin Chewable) 81 mg PO DAILY [facility] Last Admin: 08/25/18 08:35 Dose: 81 mg Atorvastatin Calcium (Lipitor) 20 mg PO DAILY [facility] Last Admin: 08/25/18 08:35 Dose: 20 mg Dextrose (Dextrose 50% Inj) 0 ml IV STAT PRN; Protocol PRN Reason: Hypoglycemia Protocol Dextrose (Glutose 15) 0 gm PO ONCE PRN; Protocol PRN Reason: Hypoglycemia Protocol Enoxaparin Sodium (Lovenox) 70 mg SC DAILY [facility]; Protocol Last Admin: 08/25/18 08:35 Dose: 70 mg Glucagon (Glucagen Diagnostic Kit) 0 mg IM STAT PRN; Protocol PRN Reason: Hypoglycemia Protocol Hydralazine HCl (Apresoline) 10 mg IV Q6 [facility] Last Admin: 08/25/18 10:06 Dose: 10 mg Vancomycin HCl 1 gm/ Sodium (Chloride) 250 mls @ 166.667 mls/hr IVPB Q48H [facility]; Protocol Last Admin: 08/23/18 12:17 Dose: 166.667 mls/hr Meropenem 500 mg/ Sodium (Chloride) 100 mls @ 100 mls/hr IVPB Q8 [facility]; Protocol Last Admin: 08/25/18 08:34 Dose: 100 mls/hr Propofol (Diprivan) 1,000 mg in 100 mls @ 2.204 mls/hr IV .Q24H [facility]; Protocol Stop: 08/26/18 11:49 Last Admin: 08/25/18 12:12 Dose: 5 mcg/kg/min, 2.204 mls/hr Insulin Human Lispro (Humalog) 0 units SC [facility]; Protocol Last Admin: 08/25/18 06:37 Dose: 3 u Meclizine HCl (Antivert) 12.5 mg PO DAILY [facility] Last Admin: 08/18/18 09:27 Dose: 12.5 mg Metformin HCl (Glucophage) 1,000 mg PO BID [facility] Last Admin: 08/16/18 09:34 Dose: Not Given Metoprolol Tartrate (Lopressor) 5 mg IVP Q6 [facility] Last Admin: 08/25/18 09:00 Dose: 5 mg Pantoprazole Sodium (Protonix Ec Tab) 40 mg PO DAILY [facility] Last Admin: 08/25/18 08:35 Dose: 40 mg Sucralfate (Carafate Oral Susp) 1 gm PO [facility] Last Admin: 08/18/18 22:07 Dose: 1 gm - Labs Labs: 08/25/18 05:00 08/25/18 05:00 PT 13.3 Seconds (9.8-13.1) H 08/25/18 05:00 INR 1.2 08/25/18 05:00 APTT 29.9 Seconds (25.6-37.1) 08/25/18 05:00 - Constitutional Appears: Confused - Head Exam Head Exam: ATRAUMATIC, NORMAL INSPECTION, NORMOCEPHALIC - Eye Exam Eye Exam: EOMI, Normal appearance, PERRL. absent: Conjunctival injection, Nystagmus, Periorbital swelling, Periorbital tenderness, Scleral icterus Pupil Exam: NORMAL ACCOMODATION, PERRL - ENT Exam ENT Exam: Mucous Membranes Dry, Normal Exam. absent: Mucous Membranes Moist, Normal External Ear Exam, Normal Oropharynx, TM's Normal Bilaterally - Neck Exam Neck Exam: Full ROM, Normal Inspection. absent: Lymphadenopathy, Meningismus, Tenderness, Thyromegaly - Respiratory Exam Respiratory Exam: Clear to Ausculation Bilateral, NORMAL BREATHING PATTERN - Cardiovascular Exam Cardiovascular Exam: REGULAR RHYTHM, +S1, +S2, Murmur. absent: Bradycardia, Tachycardia, Clicks, Diastolic murmur, Gallop, Irregular Rhythm, JVD, RRR, Rubs, +S4 - GI/Abdominal Exam GI & Abdominal Exam: Soft, Normal Bowel Sounds. absent: Bruit, Distended, Firm, Guarding, Rigid, Tenderness, Diminished Bowel Sounds, Hernia, Hyperactive Bowel Sounds, Hypoactive Bowel Sounds, Organomegaly, Pulsatile Mass, Rebound, Mass - Rectal Exam Rectal Exam: Deferred - Extremities Exam Extremities Exam: Full ROM, Normal Capillary Refill, Pedal Edema. absent: Calf Tenderness, Joint Swelling, Tenderness - Back Exam Back Exam: NORMAL INSPECTION. absent: CVA tenderness (L), CVA tenderness (R), Full ROM, muscle spasm, paraspinal tenderness, rash noted, tenderness, vertebral tenderness - Neurological Exam Neurological Exam: Awake - Psychiatric Exam Psychiatric exam: Agitated - Skin Skin Exam: Dry, Intact, Normal Color, Warm. absent: Abrasion, Cyanosis, Diaphoretic, Erythema, Mottled, Pallor, Pallor, Petechiae, Rash, Urticaria, Vesicles Assessment and Plan (1) Mental status alteration Status: Acute (2) NSTEMI (non-ST elevated myocardial infarction) Status: Acute (3) Abnormal EKG Status: Acute (4) Type 2 diabetes mellitus with hyperglycemia Status: Chronic (5) Hypertension Status: Acute (6) Acute respiratory failure Status: Chronic (7) DVT (deep venous thrombosis) Status: Acute (8) Severe anemia Status: Acute (9) Nausea & vomiting Status: Resolved (10) Acute hypernatremia Status: Acute - Assessment and Plan (Free Text) Plan: will recheck trop may rechallenge with anticoag echo bubble study to eval for PFO/ASD given dvt and acute cva consider GI eval for quaiac positive, anemia and prior abd pain. change bp meds to po titrate to achieve optimal bp icu monitor.
[2018-08-25] MEDS ORDERED: Perflutren Lipid Microsphere 1.5 ML SUS IV ONE (13:13)
--- NOTE | 2018-08-25 18:16 | CP.PCM.PN ---
Subjective - Date & Time of Evaluation Date of Evaluation: 08/25/18 Time of Evaluation: 09:00 - Subjective Subjective: intubated sedated in icu fever less Objective - Vital Signs/Intake and Output Vital Signs (last 24 hours): Temp Pulse Resp BP Pulse Ox 98.4 F 57 L 19 144/55 L 100 08/25/18 16:00 08/25/18 18:00 08/25/18 18:00 08/25/18 18:00 08/25/18 18:00 Intake and Output: 08/25/18 08/25/18 06:59 18:59 Intake Total 1050 1450 Output Total 750 Balance 300 1450 - Medications Medications: Current Medications Acetaminophen (Tylenol 650mg/20.3ml Solution Ud) 650 mg NG Q6 PRN PRN Reason: Temperature Last Admin: 08/25/18 01:06 Dose: 650 mg Amlodipine Besylate (Norvasc) 5 mg PO Q12 [facility] Last Admin: 08/25/18 08:33 Dose: 5 mg Aspirin (Aspirin Chewable) 81 mg PO DAILY [facility] Last Admin: 08/25/18 08:35 Dose: 81 mg Atorvastatin Calcium (Lipitor) 20 mg PO DAILY [facility] Last Admin: 08/25/18 08:35 Dose: 20 mg Dextrose (Dextrose 50% Inj) 0 ml IV STAT PRN; Protocol PRN Reason: Hypoglycemia Protocol Dextrose (Glutose 15) 0 gm PO ONCE PRN; Protocol PRN Reason: Hypoglycemia Protocol Enoxaparin Sodium (Lovenox) 70 mg SC DAILY [facility]; Protocol Last Admin: 08/25/18 08:35 Dose: 70 mg Glucagon (Glucagen Diagnostic Kit) 0 mg IM STAT PRN; Protocol PRN Reason: Hypoglycemia Protocol Hydralazine HCl (Apresoline) 50 mg GT Q6 [facility] Last Admin: 08/25/18 16:33 Dose: 50 mg Vancomycin HCl 1 gm/ Sodium (Chloride) 250 mls @ 166.667 mls/hr IVPB Q48H [facility]; Protocol Last Admin: 08/25/18 12:31 Dose: 166.667 mls/hr Meropenem 500 mg/ Sodium (Chloride) 100 mls @ 100 mls/hr IVPB Q8 [facility]; Protocol Last Admin: 08/25/18 16:34 Dose: 100 mls/hr Propofol (Diprivan) 1,000 mg in 100 mls @ 2.204 mls/hr IV .Q24H [facility]; Protocol Stop: 08/26/18 11:49 Last Admin: 08/25/18 12:12 Dose: 5 mcg/kg/min, 2.204 mls/hr Insulin Human Lispro (Humalog) 0 units SC [facility]; Protocol Last Admin: 08/25/18 16:40 Dose: 2 u Meclizine HCl (Antivert) 12.5 mg PO DAILY [facility] Last Admin: 08/18/18 09:27 Dose: 12.5 mg Metformin HCl (Glucophage) 1,000 mg PO BID [facility] Last Admin: 08/16/18 09:34 Dose: Not Given Metoprolol Tartrate (Lopressor) 25 mg GT Q6 [facility] Last Admin: 08/25/18 16:34 Dose: 25 mg Pantoprazole Sodium (Protonix Ec Tab) 40 mg PO DAILY [facility] Last Admin: 08/25/18 08:35 Dose: 40 mg Sucralfate (Carafate Oral Susp) 1 gm PO [facility] Last Admin: 08/18/18 22:07 Dose: 1 gm - Labs Labs: 08/25/18 05:00 08/25/18 05:00 PT 13.3 Seconds (9.8-13.1) H 08/25/18 05:00 INR 1.2 08/25/18 05:00 APTT 29.9 Seconds (25.6-37.1) 08/25/18 05:00 - Constitutional Appears: Confused, Chronically Ill - Eye Exam Eye Exam: absent: Scleral icterus - ENT Exam ENT Exam: Mucous Membranes Dry - Neck Exam Neck Exam: absent: Lymphadenopathy - Respiratory Exam Respiratory Exam: Decreased Breath Sounds - Cardiovascular Exam Cardiovascular Exam: REGULAR RHYTHM - GI/Abdominal Exam GI & Abdominal Exam: Distended, Soft - Rectal Exam Rectal Exam: Deferred - Exam Exam: NORMAL INSPECTION - Extremities Exam Extremities Exam: absent: Pedal Edema - Back Exam Back Exam: absent: CVA tenderness (L), CVA tenderness (R), NORMAL INSPECTION Assessment and Plan (1) Dehydration Status: Acute (2) NSTEMI (non-ST elevated myocardial infarction) Status: Acute (3) Nausea & vomiting Status: Resolved (4) Type 2 diabetes mellitus with hyperglycemia Status: Chronic (5) Abdominal pain Status: Acute (6) Gallbladder disease Status: Acute (7) Pneumonia Status: Acute - Assessment and Plan (Free Text) Assessment: cont IV rx for bacteremia /sepsis TLC removed new lines placed check vanco levels
[2018-08-26] MEDS: Meropenem 500 MG in Sodium Chloride 0.9% 100 ML IVPB SCH ×3 (00:23→16:06)
--- NOTE | 2018-08-26 01:33 | CP.PCM.PN ---
Subjective - Date & Time of Evaluation Date of Evaluation: 08/24/18 Objective - Vital Signs/Intake and Output Vital Signs (last 24 hours): Temp Pulse Resp BP Pulse Ox 97.4 F L 65 17 150/74 97 08/26/18 01:00 08/26/18 01:00 08/26/18 01:00 08/26/18 01:00 08/26/18 01:00 Intake and Output: 08/25/18 08/26/18 18:59 06:59 Intake Total 1450 780 Output Total 1000 Balance 450 780 - Medications Medications: Current Medications Acetaminophen (Tylenol 650mg/20.3ml Solution Ud) 650 mg NG Q6 PRN PRN Reason: Temperature Last Admin: 08/25/18 01:06 Dose: 650 mg Amlodipine Besylate (Norvasc) 5 mg PO Q12 [facility] Last Admin: 08/25/18 21:15 Dose: 5 mg Aspirin (Aspirin Chewable) 81 mg PO DAILY [facility] Last Admin: 08/25/18 08:35 Dose: 81 mg Atorvastatin Calcium (Lipitor) 20 mg PO DAILY [facility] Last Admin: 08/25/18 08:35 Dose: 20 mg Dextrose (Dextrose 50% Inj) 0 ml IV STAT PRN; Protocol PRN Reason: Hypoglycemia Protocol Dextrose (Glutose 15) 0 gm PO ONCE PRN; Protocol PRN Reason: Hypoglycemia Protocol Enoxaparin Sodium (Lovenox) 70 mg SC DAILY [facility]; Protocol Last Admin: 08/25/18 08:35 Dose: 70 mg Glucagon (Glucagen Diagnostic Kit) 0 mg IM STAT PRN; Protocol PRN Reason: Hypoglycemia Protocol Hydralazine HCl (Apresoline) 50 mg GT Q6 [facility] Last Admin: 08/25/18 21:14 Dose: 50 mg Vancomycin HCl 1 gm/ Sodium (Chloride) 250 mls @ 166.667 mls/hr IVPB Q48H [facility]; Protocol Last Admin: 08/25/18 12:31 Dose: 166.667 mls/hr Meropenem 500 mg/ Sodium (Chloride) 100 mls @ 100 mls/hr IVPB Q8 [facility]; Protocol Last Admin: 08/26/18 00:23 Dose: 100 mls/hr Propofol (Diprivan) 1,000 mg in 100 mls @ 2.204 mls/hr IV .Q24H [facility]; Protocol Stop: 08/26/18 11:49 Last Titration: 08/25/18 19:46 Dose: Infused Propofol (Diprivan) 1,000 mg in 100 mls @ 6.613 mls/hr IV .Q15H8M [facility]; Protocol Stop: 08/26/18 20:03 Last Titration: 08/26/18 01:05 Dose: 15 mcg/kg/min, 6.613 mls/hr Insulin Human Lispro (Humalog) 0 units SC [facility]; Protocol Last Admin: 08/25/18 21:06 Dose: Not Given Meclizine HCl (Antivert) 12.5 mg PO DAILY [facility] Last Admin: 08/18/18 09:27 Dose: 12.5 mg Metformin HCl (Glucophage) 1,000 mg PO BID [facility] Last Admin: 08/16/18 09:34 Dose: Not Given Metoprolol Tartrate (Lopressor) 25 mg GT Q6 [facility] Last Admin: 08/25/18 21:15 Dose: 25 mg Pantoprazole Sodium (Protonix Ec Tab) 40 mg PO DAILY [facility] Last Admin: 08/25/18 08:35 Dose: 40 mg Sucralfate (Carafate Oral Susp) 1 gm PO [facility] Last Admin: 08/18/18 22:07 Dose: 1 gm - Labs Labs: 08/25/18 05:00 08/25/18 05:00 PT 13.3 Seconds (9.8-13.1) H 08/25/18 05:00 INR 1.2 08/25/18 05:00 APTT 29.9 Seconds (25.6-37.1) 08/25/18 05:00 Assessment and Plan (1) Acute gastroenteritis Status: Resolved (2) Hypertensive urgency Status: Resolved (3) Abdominal pain in female Status: Resolved (4) Dizziness Status: Acute (5) Type 2 diabetes mellitus with hyperglycemia Status: Chronic (6) NSTEMI (non-ST elevated myocardial infarction) Status: Acute (7) Gallbladder disease Status: Acute (8) AURORA (acute kidney injury) Status: Acute (9) Cardiac arrest Status: Acute (10) Acute respiratory failure Status: Chronic (11) DVT (deep venous thrombosis) Status: Acute (12) Severe anemia Status: Acute (13) Aspiration pneumonia Status: Acute
--- NOTE | 2018-08-26 01:34 | CP.PCM.PN ---
Subjective - Date & Time of Evaluation Date of Evaluation: 08/25/18 Objective - Vital Signs/Intake and Output Vital Signs (last 24 hours): Temp Pulse Resp BP Pulse Ox 97.4 F L 65 17 150/74 97 08/26/18 01:00 08/26/18 01:00 08/26/18 01:00 08/26/18 01:00 08/26/18 01:00 Intake and Output: 08/25/18 08/26/18 18:59 06:59 Intake Total 1450 780 Output Total 1000 Balance 450 780 - Medications Medications: Current Medications Acetaminophen (Tylenol 650mg/20.3ml Solution Ud) 650 mg NG Q6 PRN PRN Reason: Temperature Last Admin: 08/25/18 01:06 Dose: 650 mg Amlodipine Besylate (Norvasc) 5 mg PO Q12 [facility] Last Admin: 08/25/18 21:15 Dose: 5 mg Aspirin (Aspirin Chewable) 81 mg PO DAILY [facility] Last Admin: 08/25/18 08:35 Dose: 81 mg Atorvastatin Calcium (Lipitor) 20 mg PO DAILY [facility] Last Admin: 08/25/18 08:35 Dose: 20 mg Dextrose (Dextrose 50% Inj) 0 ml IV STAT PRN; Protocol PRN Reason: Hypoglycemia Protocol Dextrose (Glutose 15) 0 gm PO ONCE PRN; Protocol PRN Reason: Hypoglycemia Protocol Enoxaparin Sodium (Lovenox) 70 mg SC DAILY [facility]; Protocol Last Admin: 08/25/18 08:35 Dose: 70 mg Glucagon (Glucagen Diagnostic Kit) 0 mg IM STAT PRN; Protocol PRN Reason: Hypoglycemia Protocol Hydralazine HCl (Apresoline) 50 mg GT Q6 [facility] Last Admin: 08/25/18 21:14 Dose: 50 mg Vancomycin HCl 1 gm/ Sodium (Chloride) 250 mls @ 166.667 mls/hr IVPB Q48H [facility]; Protocol Last Admin: 08/25/18 12:31 Dose: 166.667 mls/hr Meropenem 500 mg/ Sodium (Chloride) 100 mls @ 100 mls/hr IVPB Q8 [facility]; Protocol Last Admin: 08/26/18 00:23 Dose: 100 mls/hr Propofol (Diprivan) 1,000 mg in 100 mls @ 2.204 mls/hr IV .Q24H [facility]; Protocol Stop: 08/26/18 11:49 Last Titration: 08/25/18 19:46 Dose: Infused Propofol (Diprivan) 1,000 mg in 100 mls @ 6.613 mls/hr IV .Q15H8M [facility]; Protocol Stop: 08/26/18 20:03 Last Titration: 08/26/18 01:05 Dose: 15 mcg/kg/min, 6.613 mls/hr Insulin Human Lispro (Humalog) 0 units SC [facility]; Protocol Last Admin: 08/25/18 21:06 Dose: Not Given Meclizine HCl (Antivert) 12.5 mg PO DAILY [facility] Last Admin: 08/18/18 09:27 Dose: 12.5 mg Metformin HCl (Glucophage) 1,000 mg PO BID [facility] Last Admin: 08/16/18 09:34 Dose: Not Given Metoprolol Tartrate (Lopressor) 25 mg GT Q6 [facility] Last Admin: 08/25/18 21:15 Dose: 25 mg Pantoprazole Sodium (Protonix Ec Tab) 40 mg PO DAILY [facility] Last Admin: 08/25/18 08:35 Dose: 40 mg Sucralfate (Carafate Oral Susp) 1 gm PO [facility] Last Admin: 08/18/18 22:07 Dose: 1 gm - Labs Labs: 08/25/18 05:00 08/25/18 05:00 PT 13.3 Seconds (9.8-13.1) H 08/25/18 05:00 INR 1.2 08/25/18 05:00 APTT 29.9 Seconds (25.6-37.1) 08/25/18 05:00 Assessment and Plan (1) Acute gastroenteritis Status: Resolved (2) Hypertensive urgency Status: Resolved (3) Abdominal pain in female Status: Resolved (4) Dizziness Status: Acute (5) Type 2 diabetes mellitus with hyperglycemia Status: Chronic (6) NSTEMI (non-ST elevated myocardial infarction) Status: Acute (7) Gallbladder disease Status: Acute (8) AURORA (acute kidney injury) Status: Acute (9) Cardiac arrest Status: Acute (10) Acute respiratory failure Status: Chronic (11) DVT (deep venous thrombosis) Status: Acute (12) Severe anemia Status: Acute (13) Aspiration pneumonia Status: Acute
[2018-08-26 05:20] LABS: ABG ALLEN TEST YES; ARTERIAL BLOOD GAS HEMOGLOBIN 9.7 g/dL (11.7-17.4); ARTERIAL BLOOD GAS O2 CAPACITY 13.4 mL/dL (16-24); ARTERIAL BLOOD GAS O2 CONTENT 13.3 ML/dL (15-23); ARTERIAL BLOOD GAS O2 SAT 99.2 % (95-98); ARTERIAL BLOOD GAS PCO2 29 mm/Hg (35-45); ARTERIAL BLOOD GAS PH 7.44 (7.35-7.45); ARTERIAL BLOOD GAS PO2 96 mm/Hg (80-100); ARTERIAL BLOOD GAS TCO2 20.6 mmol/L (22-28)
[2018-08-26 05:22] LABS: HEMOGLOBIN 9.6 g/dL (12.0-16.0); MEAN CELL VOLUME 92.3 fl (81.0-99.0); MEAN CORPUSCULAR HEMOGLOBIN 30.1 pg (27.0-31.0); MEAN CORPUSCULAR HGB CONC 32.6 g/dL (33.0-37.0); RBC 3.18 Mil/uL (3.80-5.20); RED CELL DISTRIBUTION WIDTH 14.8 % (11.5-14.5); WHITE BLOOD COUNT 15.5 K/uL (4.8-10.8)
[2018-08-26 05:32] LABS: ALB/GLOB RATIO 0.9 (1.0-2.1); ALBUMIN 2.6 g/dL (3.5-5.0); CALCIUM 8.2 mg/dL (8.4-10.2)
[2018-08-26 05:53] LABS: TROPONIN I 1.45 ng/mL (0.00-0.120)
[2018-08-26] MEDS ORDERED: Potassium Chloride 20 mEq/15 ml LIQ UD NG ONE (06:26)
[2018-08-26] MEDS: Insulin Lispro (humaLOG) 100 Units/ml Inj SC SCH ×4 (06:31→21:38)
--- NOTE | 2018-08-26 08:33 | RAD ---
Date of service: 08/26/2018 HISTORY: VENTED COMPARISON: Portable chest 08/25/2018. FINDINGS: LUNGS: ET tube terminates approximately 2.5 cm above the kevon. Stable nasogastric tube placement. Diminishing clarity of the left hemidiaphragm suggests likely developing atelectasis though infiltrate is possible here. No definitive airspace disease otherwise evident. PLEURA: No significant pleural effusion identified, no pneumothorax apparent. CARDIOVASCULAR: Calcific atherosclerotic changes are seen related to the thoracic aorta. Stable cardiac silhouette. Mild pulmonary vascular congestion may be developing. Clinically correlate further. OSSEOUS STRUCTURES: No significant abnormalities. VISUALIZED UPPER ABDOMEN: Normal. OTHER FINDINGS: None. IMPRESSION: Airspace disease left base suspicious for probable atelectasis though developing infiltrate is not completely excluded. None otherwise apparent. Early pulmonary vascular congestion questioned.
[2018-08-26] MEDS: Pantoprazole 40 mg EC Tab PO SCH (09:50)
[2018-08-26] MEDS: Enoxaparin 80 mg Syringe SC SCH (10:00)
--- NOTE | 2018-08-26 10:25 | CP.PCM.PN ---
Subjective - Date & Time of Evaluation Date of Evaluation: 08/26/18 Time of Evaluation: 10:25 - Subjective Subjective: patient remained restless on respirator Vital sign noted to be stable Objective - Vital Signs/Intake and Output Vital Signs (last 24 hours): Temp Pulse Resp BP Pulse Ox 98.4 F 76 21 142/61 100 08/26/18 08:00 08/26/18 09:59 08/26/18 08:00 08/26/18 09:59 08/26/18 08:00 Intake and Output: 08/26/18 08/26/18 06:59 18:59 Intake Total 1430 Output Total 550 Balance 880 - Medications Medications: Current Medications Acetaminophen (Tylenol 650mg/20.3ml Solution Ud) 650 mg NG Q6 PRN PRN Reason: Temperature Last Admin: 08/25/18 01:06 Dose: 650 mg Amlodipine Besylate (Norvasc) 5 mg PO Q12 [facility] Last Admin: 08/26/18 09:50 Dose: 5 mg Aspirin (Aspirin Chewable) 81 mg PO DAILY [facility] Last Admin: 08/26/18 09:58 Dose: 81 mg Atorvastatin Calcium (Lipitor) 20 mg PO DAILY [facility] Last Admin: 08/26/18 09:59 Dose: 20 mg Dextrose (Dextrose 50% Inj) 0 ml IV STAT PRN; Protocol PRN Reason: Hypoglycemia Protocol Dextrose (Glutose 15) 0 gm PO ONCE PRN; Protocol PRN Reason: Hypoglycemia Protocol Enoxaparin Sodium (Lovenox) 70 mg SC DAILY [facility]; Protocol Last Admin: 08/26/18 10:00 Dose: 70 mg Glucagon (Glucagen Diagnostic Kit) 0 mg IM STAT PRN; Protocol PRN Reason: Hypoglycemia Protocol Hydralazine HCl (Apresoline) 50 mg GT Q6 [facility] Last Admin: 08/26/18 09:57 Dose: 50 mg Vancomycin HCl 1 gm/ Sodium (Chloride) 250 mls @ 166.667 mls/hr IVPB Q48H [facility]; Protocol Last Admin: 08/25/18 12:31 Dose: 166.667 mls/hr Meropenem 500 mg/ Sodium (Chloride) 100 mls @ 100 mls/hr IVPB Q8 [facility]; Protocol Last Admin: 08/26/18 08:08 Dose: 100 mls/hr Propofol (Diprivan) 1,000 mg in 100 mls @ 2.204 mls/hr IV .Q24H [facility]; Protocol Stop: 08/26/18 11:49 Last Titration: 08/25/18 19:46 Dose: Infused Propofol (Diprivan) 1,000 mg in 100 mls @ 6.613 mls/hr IV .Q15H8M [facility]; Protocol Stop: 08/26/18 20:03 Last Titration: 08/26/18 05:02 Dose: 10 mcg/kg/min, 4.409 mls/hr Insulin Human Lispro (Humalog) 0 units SC [facility]; Protocol Last Admin: 08/26/18 06:31 Dose: 4 u Meclizine HCl (Antivert) 12.5 mg PO DAILY [facility] Last Admin: 08/18/18 09:27 Dose: 12.5 mg Metformin HCl (Glucophage) 1,000 mg PO BID [facility] Last Admin: 08/16/18 09:34 Dose: Not Given Metoprolol Tartrate (Lopressor) 25 mg GT Q6 [facility] Last Admin: 08/26/18 09:59 Dose: 25 mg Pantoprazole Sodium (Protonix Ec Tab) 40 mg PO DAILY [facility] Last Admin: 08/26/18 09:50 Dose: 40 mg Sucralfate (Carafate Oral Susp) 1 gm PO [facility] Last Admin: 08/18/18 22:07 Dose: 1 gm - Labs Labs: 08/26/18 04:50 08/26/18 04:50 PT 13.3 Seconds (9.8-13.1) H 08/25/18 05:00 INR 1.2 08/25/18 05:00 APTT 29.9 Seconds (25.6-37.1) 08/25/18 05:00 - Constitutional Appears: No Acute Distress - Eye Exam Eye Exam: Conjunctival injection - ENT Exam ENT Exam: Mucous Membranes Dry - Neck Exam Neck Exam: absent: Lymphadenopathy - Respiratory Exam Respiratory Exam: absent: Chest Wall Tenderness - Cardiovascular Exam Cardiovascular Exam: absent: Gallop, JVD, Rubs - GI/Abdominal Exam GI & Abdominal Exam: Soft, Normal Bowel Sounds - Extremities Exam Extremities Exam: absent: Calf Tenderness - Back Exam Back Exam: absent: CVA tenderness (L), CVA tenderness (R) - Neurological Exam Neurological Exam: Altered - Psychiatric Exam Psychiatric exam: Flat Affect - Skin Skin Exam: absent: Cyanosis Assessment and Plan (1) AURORA (acute kidney injury) Assessment & Plan: acute kidney injury related to multifactorial including sepsis Respiratory failure Sepsis CA hypernatremia,improving from yesterday serum sodium 151from 154 yesterday fever leukocytosis hypokalemia recommendation continue Scot 300 mL every 4 hours through the NG tube management of infection antibiotics as per renal dose Respiratory management Kidney function improving somewhat patient needed potassium supplement Status: Acute (2) Acute gastroenteritis Status: Resolved (3) Anginal equivalent Status: Acute
[2018-08-26] MEDS: Propofol 10 mg/ml 1,000 MG/100 ML VIAL IV SCH (12:11)
--- NOTE | 2018-08-26 12:51 | CP.PCM.PN ---
Subjective - Date & Time of Evaluation Date of Evaluation: 08/26/18 Time of Evaluation: 09:00 - Subjective Subjective: intubated lines removed cultures repeated Objective - Vital Signs/Intake and Output Vital Signs (last 24 hours): Temp Pulse Resp BP Pulse Ox 99.6 F 76 24 108/49 L 98 08/26/18 12:00 08/26/18 12:00 08/26/18 12:00 08/26/18 12:00 08/26/18 12:00 Intake and Output: 08/26/18 08/26/18 06:59 18:59 Intake Total 1430 1132 Output Total 550 300 Balance 880 832 - Medications Medications: Current Medications Acetaminophen (Tylenol 650mg/20.3ml Solution Ud) 650 mg NG Q6 PRN PRN Reason: Temperature Last Admin: 08/25/18 01:06 Dose: 650 mg Amlodipine Besylate (Norvasc) 5 mg PO Q12 [facility] Last Admin: 08/26/18 09:50 Dose: 5 mg Aspirin (Aspirin Chewable) 81 mg PO DAILY [facility] Last Admin: 08/26/18 09:58 Dose: 81 mg Atorvastatin Calcium (Lipitor) 20 mg PO DAILY [facility] Last Admin: 08/26/18 09:59 Dose: 20 mg Dextrose (Dextrose 50% Inj) 0 ml IV STAT PRN; Protocol PRN Reason: Hypoglycemia Protocol Dextrose (Glutose 15) 0 gm PO ONCE PRN; Protocol PRN Reason: Hypoglycemia Protocol Enoxaparin Sodium (Lovenox) 70 mg SC DAILY [facility]; Protocol Last Admin: 08/26/18 10:00 Dose: 70 mg Glucagon (Glucagen Diagnostic Kit) 0 mg IM STAT PRN; Protocol PRN Reason: Hypoglycemia Protocol Hydralazine HCl (Apresoline) 50 mg GT Q6 [facility] Last Admin: 08/26/18 09:57 Dose: 50 mg Vancomycin HCl 1 gm/ Sodium (Chloride) 250 mls @ 166.667 mls/hr IVPB Q48H [facility]; Protocol Last Admin: 08/25/18 12:31 Dose: 166.667 mls/hr Meropenem 500 mg/ Sodium (Chloride) 100 mls @ 100 mls/hr IVPB Q8 [facility]; Protocol Last Admin: 08/26/18 08:08 Dose: 100 mls/hr Propofol (Diprivan) 1,000 mg in 100 mls @ 6.613 mls/hr IV .Q15H8M [facility]; Protocol Stop: 08/26/18 20:03 Last Admin: 08/26/18 12:11 Dose: 15 mcg/kg/min, 6.613 mls/hr Insulin Human Lispro (Humalog) 0 units SC [facility]; Protocol Last Admin: 08/26/18 12:13 Dose: 5 u Meclizine HCl (Antivert) 12.5 mg PO DAILY [facility] Last Admin: 08/18/18 09:27 Dose: 12.5 mg Metformin HCl (Glucophage) 1,000 mg PO BID [facility] Last Admin: 08/16/18 09:34 Dose: Not Given Metoprolol Tartrate (Lopressor) 25 mg GT Q6 [facility] Last Admin: 08/26/18 09:59 Dose: 25 mg Pantoprazole Sodium (Protonix Ec Tab) 40 mg PO DAILY [facility] Last Admin: 08/26/18 09:50 Dose: 40 mg Sucralfate (Carafate Oral Susp) 1 gm PO [facility] Last Admin: 08/18/18 22:07 Dose: 1 gm - Labs Labs: 08/26/18 04:50 08/26/18 04:50 PT 13.3 Seconds (9.8-13.1) H 08/25/18 05:00 INR 1.2 08/25/18 05:00 APTT 29.9 Seconds (25.6-37.1) 08/25/18 05:00 - Constitutional Appears: Cachectic, Chronically Ill - Head Exam Head Exam: NORMOCEPHALIC - Eye Exam Eye Exam: absent: Scleral icterus - ENT Exam ENT Exam: Mucous Membranes Dry - Neck Exam Neck Exam: absent: Lymphadenopathy - Respiratory Exam Respiratory Exam: Decreased Breath Sounds - Cardiovascular Exam Cardiovascular Exam: REGULAR RHYTHM - GI/Abdominal Exam GI & Abdominal Exam: Distended, Soft Assessment and Plan (1) Dehydration Status: Acute (2) NSTEMI (non-ST elevated myocardial infarction) Status: Acute (3) Nausea & vomiting Status: Resolved (4) Type 2 diabetes mellitus with hyperglycemia Status: Chronic (5) Abdominal pain Status: Acute (6) Gallbladder disease Status: Acute (7) Pneumonia Status: Acute - Assessment and Plan (Free Text) Assessment: cont iv antibiotics repeat cultures sent after line removal
[2018-08-26] MEDS ORDERED: Potassium Chloride 20 mEq/15 ml LIQ UD PO ONE (13:56)
--- NOTE | 2018-08-26 13:59 | CP.CCUPN ---
CCU Subjective - Physician Review Subjective (Free Text): Appears to have defervesced over the past 24H, still not wholly interactive nor responsive to verbal commands, requires Propofol for ventilator dysynchrony, no overall distress. Brief SBT on CPAP 5, PS 10 resulted in RR increasing to over 33/min. Other vitals and I/O's reviewed, does not appear diaphoretic, nor in any distress. SBPs 110-140's, HR 70's. Fluid balance positive. ROS: No other pertinent negs or positives on 10+ system review obtainable due to sedation, on MV. PMSFH: DM II, HTN, Gastritis. All other Nursing and physician documentation reviewed to date; no new pertinent info noted relevant to current medical problems. EXAM- HEENT: no icterus, no gaze preference, Pupils 3 mm and reactive NECK: No JVD visible, supple, carotids equal upstroke bilat/no bruit CHEST: decreased BS at the bases, no wheezes audible HEART: regular, distant, S1S2, no rubs ABD: soft and nontender, no tympany, no guarding, no organomegaly, BS absent. EXT: no LE edema, no calf tenderness or palpable cords, distal pulses intact and symmetrical. NEURO: no focal motor weakness SKIN: no rashes, warm and dry LABS: WBC= 15.5 HGB= 9.6 PLTs= 305K Na= 151 K= 3.0 NP=700 HCO3= 18 BUN/Cr= 40/1.5 BS= 340 CXR: -There is no admission CXR. - ETT OK above kevon, no new consolidation, slight PVC. ( my interp) IMPRESSION / MAJOR PROBLEMS NOW: 1. s/p Last week: Hypotension / Bradycardia 2 Antihypertensive meds, r/o recurrent myocardial ischemia / AMI; on MV support post-resuscitation from Code Blue, r/o Anoxic Encephalopathy 2. Acute / Subacute NSTEMI 3. Coag neg Staph Bacteremia 4. Azotemia / Dehydration, r/o AURORA ATN 5. r/o GB / Biliary Tract disease 6. Uncontrolled DM II PLAN: 1. No extubation today until electrolytes normalized. More K repletion, check Mag / Phos levels. 2. Free water increased. Tube feeds changed to Glucerna, add Levemir. 3. Vanco / Merrem, repeated BCs yesterday, obtained from [facility]; may need to change lines. 4. Resumed therapeutic Lovenox, watch serial Hgb. Trops increasing again, Cardio f/u. BBs changed and resumed, ongoing Statin therapy and ASA. 5. Anti-hypertensive regimen noted, watch renal response to BP lowering.
[2018-08-26] MEDS: Insulin Detemir 100 Units/ml Inj SC SCH (15:00)
[2018-08-27] MEDS: Meropenem 500 MG in Sodium Chloride 0.9% 100 ML IVPB SCH ×3 (00:53→16:10)
[2018-08-27] MEDS ORDERED: Albuterol 0.083% Inhal Sol (2.5 mg/3 mL) UD INH STA (01:38)
[2018-08-27] MEDS ORDERED: Albuterol 0.083% Inhal Sol (2.5 mg/3 mL) UD ONE (01:43)
[2018-08-27] MEDS: Propofol 10 mg/ml 1,000 MG/100 ML VIAL IV SCH ×2 (04:35→14:33)
[2018-08-27 06:14] LABS: ABG ALLEN TEST YES
[2018-08-27 07:06] LABS: ALB/GLOB RATIO 0.8 (1.0-2.1); ALBUMIN 2.5 g/dL (3.5-5.0)
[2018-08-27] MEDS: Insulin Lispro (humaLOG) 100 Units/ml Inj SC SCH ×4 (07:32→21:30)
--- NOTE | 2018-08-27 07:44 | CP.CCUPN ---
CCU Subjective - Physician Review Events Since Last Encounter (Free Text): Patient on ventilator, on PRVC TV 400, RR 8, FIO2 60%, on sedation, no fever, no vomiting, on tube feeding, events reviewed CCU Objective - Vital Signs / Intake & Output Vital Signs (Last 4 hours): Vital Signs Temp Pulse Resp BP Pulse Ox 08/27/18 07:00 64 15 122/59 L 100 08/27/18 06:00 66 19 101/47 L 100 08/27/18 05:00 98.2 F 64 21 134/54 L 100 08/27/18 04:36 76 139/54 L 08/27/18 04:00 97.0 F L 72 18 139/57 L 100 Intake and Output (Last 8hrs): Intake & Output 08/26/18 08/27/18 08/27/18 22:59 06:59 14:59 Intake Total 748 850 Output Total 700 450 Balance 48 400 Weight 163 lb Intake: IV 38 50 Tube Feeding 210 400 Free Water Flush 500 400 Output: Urine 700 450 Urethral (Jin) 700 450 - Physical Exam Head: Positive for: Atraumatic, Normocephalic Pupils: Positive for: PERRL. Negative for: Sluggish, Non-Reactive, Pinpoint Conjunctiva: Positive for: Normal. Negative for: Injected, Icteric Mouth: Positive for: Moist Mucous Membranes Nose (External): Positive for: Atraumatic Neck: Positive for: Normal Range of Motion Respiratory/Chest: Positive for: Rhonchi Cardiovascular: Positive for: Regular Rate and Rhythm Abdomen: Positive for: Normal Bowel Sounds. Negative for: Tenderness, Distenti on, Peritoneal Signs Upper Extremity: Positive for: Normal Inspection, NORMAL PULSES, Capillary Refill < 2s. Negative for: Cyanosis, Edema Lower Extremity: Positive for: Normal Inspection. Negative for: Edema, CALF TENDERNESS Neurological: Positive for: Other (on ventilator, opens eyes to verbal stimuli) Psychiatric: Negative for: Alert, Oriented x 3 - Medications Active Medications: Active Medications Generic Name Dose Route Start Last Admin Trade Name Freq PRN Reason Stop Dose Admin Acetaminophen 650 mg 08/24/18 10:29 08/25/18 01:06 Tylenol 650mg/20.3ml Solution Ud NG 650 mg Q6 PRN Administration Temperature Amlodipine Besylate 5 mg 08/22/18 21:00 08/26/18 21:21 Norvasc PO 5 mg Q12 [facility] Administration Aspirin 81 mg 08/21/18 09:00 08/26/18 09:58 Aspirin Chewable PO 81 mg DAILY [facility] Administration Atorvastatin Calcium 20 mg 08/13/18 09:00 08/26/18 09:59 Lipitor PO 20 mg DAILY [facility] Administration Dextrose 0 ml 08/13/18 08:17 Dextrose 50% Inj IV STAT PRN Hypoglycemia Protocol Protocol Dextrose 0 gm 08/13/18 08:17 Glutose 15 PO ONCE PRN Hypoglycemia Protocol Protocol Enoxaparin Sodium 70 mg 08/24/18 10:45 08/26/18 10:00 Lovenox SC 70 mg DAILY [facility] Administration Protocol Glucagon 0 mg 08/13/18 08:17 Glucagen Diagnostic Kit IM STAT PRN Hypoglycemia Protocol Protocol Hydralazine HCl 50 mg 08/25/18 16:00 08/27/18 04:36 Apresoline GT 50 mg Q6 [facility] Administration Vancomycin HCl 1 gm/ Sodium 250 mls @ 166.667 mls/hr 08/19/18 13:15 08/25/18 12:31 Chloride IVPB 166.667 mls/hr Q48H [facility] Administration Protocol Meropenem 500 mg/ Sodium 100 mls @ 100 mls/hr 08/24/18 12:30 08/27/18 00:53 Chloride IVPB 100 mls/hr Q8 [facility] Administration Protocol Insulin Detemir 12 units 08/26/18 14:00 08/26/18 15:00 Levemir SC 12 unit DAILY [facility] Administration Insulin Human Lispro 0 units 08/13/18 11:30 08/27/18 07:32 Humalog SC 3 u ACHS [facility] Administration Protocol Meclizine HCl 12.5 mg 08/13/18 09:00 08/18/18 09:27 Antivert PO 12.5 mg DAILY [facility] Administration Metformin HCl 1,000 mg 08/13/18 09:00 08/16/18 09:34 Glucophage PO Not Given BID [facility] Metoprolol Tartrate 25 mg 08/25/18 16:00 08/27/18 04:36 Lopressor GT 25 mg Q6 [facility] Administration Pantoprazole Sodium 40 mg 08/13/18 09:00 08/26/18 09:50 Protonix Ec Tab PO 40 mg DAILY [facility] Administration Sucralfate 1 gm 08/14/18 20:30 08/18/18 22:07 Carafate Oral Susp PO 1 gm ACHS [facility] Administration - Patient Studies Lab Studies: Microbiology Studies 08/26/18 04:55 Blood Culture - Preliminary Blood-Venous NO GROWTH AFTER 24 HOURS 08/26/18 04:50 Blood Culture - Preliminary Blood-Venous NO GROWTH AFTER 24 HOURS 08/23/18 18:07 Blood Culture - Preliminary Blood-Venous NO GROWTH AFTER 3 DAYS 08/23/18 18:07 Blood Culture - Preliminary Blood-Venous NO GROWTH AFTER 3 DAYS 08/23/18 17:37 Urine Culture - Final Urine,Jin No Growth (<1,000 CFU/ML) 08/24/18 12:30 Blood Culture - Preliminary Blood-Venous NO GROWTH AFTER 48 HOURS 08/24/18 12:45 Blood Culture - Preliminary Blood-Venous Gram Positive Cocci Gram Stain - Final Lab Studies 08/27/18 08/27/18 08/27/18 Range/Units 05:50 05:28 05:25 pCO2 37 (35-45) mm/Hg pO2 112 H (80-100) mm/Hg HCO3 22.2 (21-28) mmol/L ABG pH 7.37 (7.35-7.45) ABG Total CO2 22.5 (22-28) mmol/L ABG O2 Saturation 100.2 H (95-98) % ABG O2 Content 13.1 L (15-23) ML/dL ABG Base Excess -3.5 L (-2.0-3.0) mmol/L ABG Hemoglobin 9.4 L (11.7-17.4) g/dL ABG Carboxyhemoglobin 1.4 (0.5-1.5) % POC ABG HHb (Measured) -0.2 L (0.0-5.0) % ABG Methemoglobin 1.3 (0.0-3.0) % ABG O2 Capacity 13.1 L (16-24) mL/dL Masoud Test Yes A-a O2 Difference 270.0 mm/Hg Hgb O2 Saturation 97.5 (95.0-98.0) % Vent Mode A/c Mechanical Rate 8 FiO2 60.0 % Tidal Volume 400 PEEP 5 Sodium 152 H (132-148) mmol/l Potassium 3.7 (3.6-5.0) MMOL/L Chloride 125 H (98-107) mmol/L Carbon Dioxide 20 L (22-30) mmol/L Anion Gap 11 (10-20) BUN 41 H (7-17) mg/dl Creatinine 1.3 H (0.7-1.2) mg/dl Est GFR ( Amer) 48 Est GFR (Non-Af Amer) 40 POC Glucose (mg/dL) 260 H (65-110) mg/dL Random Glucose 275 H (65-105) mg/dL Calcium 8.0 L (8.4-10.2) mg/dL Phosphorus 3.0 (2.5-4.5) mg/dl Magnesium 2.2 (1.6-2.3) MG/DL Total Bilirubin 0.5 (0.2-1.3) mg/dl AST 24 (14-36) U/L ALT 61 H D (9-52) U/L Alkaline Phosphatase 88 (38-126) U/L Total Protein 5.6 L (6.3-8.2) G/DL Albumin 2.5 L (3.5-5.0) g/dL Globulin 3.1 (2.2-3.9) gm/dL Albumin/Globulin Ratio 0.8 L (1.0-2.1) Vancomycin Trough (5.0-10.0) ug/mL 08/27/18 08/26/18 08/26/18 Range/Units 05:25 21:34 16:11 pCO2 (35-45) mm/Hg pO2 (80-100) mm/Hg HCO3 (21-28) mmol/L ABG pH (7.35-7.45) ABG Total CO2 (22-28) mmol/L ABG O2 Saturation (95-98) % ABG O2 Content (15-23) ML/dL ABG Base Excess (-2.0-3.0) mmol/L ABG Hemoglobin (11.7-17.4) g/dL ABG Carboxyhemoglobin (0.5-1.5) % POC ABG HHb (Measured) (0.0-5.0) % ABG Methemoglobin (0.0-3.0) % ABG O2 Capacity (16-24) mL/dL Masoud Test A-a O2 Difference mm/Hg Hgb O2 Saturation (95.0-98.0) % Vent Mode Mechanical Rate FiO2 % Tidal Volume PEEP Sodium (132-148) mmol/l Potassium (3.6-5.0) MMOL/L Chloride (98-107) mmol/L Carbon Dioxide (22-30) mmol/L Anion Gap (10-20) BUN (7-17) mg/dl Creatinine (0.7-1.2) mg/dl Est GFR ( Amer) Est GFR (Non-Af Amer) POC Glucose (mg/dL) 282 H 379 H (65-110) mg/dL Random Glucose (65-105) mg/dL Calcium (8.4-10.2) mg/dL Phosphorus (2.5-4.5) mg/dl Magnesium (1.6-2.3) MG/DL Total Bilirubin (0.2-1.3) mg/dl AST (14-36) U/L ALT (9-52) U/L Alkaline Phosphatase (38-126) U/L Total Protein (6.3-8.2) G/DL Albumin (3.5-5.0) g/dL Globulin (2.2-3.9) gm/dL Albumin/Globulin Ratio (1.0-2.1) Vancomycin Trough 8.2 (5.0-10.0) ug/mL 08/26/ Range/Units 11:44 pCO2 (35-45) mm/Hg pO2 (80-100) mm/Hg HCO3 (21-28) mmol/L ABG pH (7.35-7.45) ABG Total CO2 (22-28) mmol/L ABG O2 Saturation (95-98) % ABG O2 Content (15-23) ML/dL ABG Base Excess (-2.0-3.0) mmol/L ABG Hemoglobin (11.7-17.4) g/dL ABG Carboxyhemoglobin (0.5-1.5) % POC ABG HHb (Measured) (0.0-5.0) % ABG Methemoglobin (0.0-3.0) % ABG O2 Capacity (16-24) mL/dL Masoud Test A-a O2 Difference mm/Hg Hgb O2 Saturation (95.0-98.0) % Vent Mode Mechanical Rate FiO2 % Tidal Volume PEEP Sodium (132-148) mmol/l Potassium (3.6-5.0) MMOL/L Chloride (98-107) mmol/L Carbon Dioxide (22-30) mmol/L Anion Gap (10-20) BUN (7-17) mg/dl Creatinine (0.7-1.2) mg/dl Est GFR ( Amer) Est GFR (Non-Af Amer) POC Glucose (mg/dL) 356 H (65-110) mg/dL Random Glucose (65-105) mg/dL Calcium (8.4-10.2) mg/dL Phosphorus (2.5-4.5) mg/dl Magnesium (1.6-2.3) MG/DL Total Bilirubin (0.2-1.3) mg/dl AST (14-36) U/L ALT (9-52) U/L Alkaline Phosphatase (38-126) U/L Total Protein (6.3-8.2) G/DL Albumin (3.5-5.0) g/dL Globulin (2.2-3.9) gm/dL Albumin/Globulin Ratio (1.0-2.1) Vancomycin Trough (5.0-10.0) ug/mL Laboratory Results - last 24 hr 08/26/18 08/26/18 08/26/18 11:44 16:11 21:34 pCO2 pO2 HCO3 ABG pH ABG Total CO2 ABG O2 Saturation ABG O2 Content ABG Base Excess ABG Hemoglobin ABG Carboxyhemoglobin POC ABG HHb (Measured) ABG Methemoglobin ABG O2 Capacity Masoud Test A-a O2 Difference Hgb O2 Saturation Vent Mode Mechanical Rate FiO2 Tidal Volume PEEP Sodium Potassium Chloride Carbon Dioxide Anion Gap BUN Creatinine Est GFR ( Amer) Est GFR (Non-Af Amer) POC Glucose (mg/dL) 356 H 379 H 282 H Random Glucose Calcium Phosphorus Magnesium Total Bilirubin AST ALT Alkaline Phosphatase Total Protein Albumin Globulin Albumin/Globulin Ratio Vancomycin Trough 08/27/18 08/27/18 08/27/18 05:25 05:25 05:28 pCO2 pO2 HCO3 ABG pH ABG Total CO2 ABG O2 Saturation ABG O2 Content ABG Base Excess ABG Hemoglobin ABG Carboxyhemoglobin POC ABG HHb (Measured) ABG Methemoglobin ABG O2 Capacity Masoud Test A-a O2 Difference Hgb O2 Saturation Vent Mode Mechanical Rate FiO2 Tidal Volume PEEP Sodium 152 H Potassium 3.7 Chloride 125 H Carbon Dioxide 20 L Anion Gap 11 BUN 41 H Creatinine 1.3 H Est GFR ( Amer) 48 Est GFR (Non-Af Amer) 40 POC Glucose (mg/dL) 260 H Random Glucose 275 H Calcium 8.0 L Phosphorus 3.0 Magnesium 2.2 Total Bilirubin 0.5 AST 24 ALT 61 H D Alkaline Phosphatase 88 Total Protein 5.6 L Albumin 2.5 L Globulin 3.1 Albumin/Globulin Ratio 0.8 L Vancomycin Trough 8.2 08/27/18 05:50 pCO2 37 pO2 112 H HCO3 22.2 ABG pH 7.37 ABG Total CO2 22.5 ABG O2 Saturation 100.2 H ABG O2 Content 13.1 L ABG Base Excess -3.5 L ABG Hemoglobin 9.4 L ABG Carboxyhemoglobin 1.4 POC ABG HHb (Measured) -0.2 L ABG Methemoglobin 1.3 ABG O2 Capacity 13.1 L Masoud Test Yes A-a O2 Difference 270.0 Hgb O2 Saturation 97.5 Vent Mode A/c Mechanical Rate 8 FiO2 60.0 Tidal Volume 400 PEEP 5 Sodium Potassium Chloride Carbon Dioxide Anion Gap BUN Creatinine Est GFR ( Amer) Est GFR (Non-Af Amer) POC Glucose (mg/dL) Random Glucose Calcium Phosphorus Magnesium Total Bilirubin AST ALT Alkaline Phosphatase Total Protein Albumin Globulin Albumin/Globulin Ratio Vancomycin Trough Fingerstick Blood Sugar Results: 260 Assessment/Plan - Assessment and Plan (Free Text) Assessment: A/P Cardiac arrest s/p resuscitation, respiratory failure, CAD, SC, DV, sepsis, GB / biliary tract disease, DM, AURORA - Ventilatory support - Weaning as tolerated - Pulmonary toilets - Continue meds - Cardiology follow up - Follow up labs Critical care 40 min
--- NOTE | 2018-08-27 07:50 | CP.PCM.PN ---
Subjective - Date & Time of Evaluation Date of Evaluation: 09/25/18 Time of Evaluation: 07:15 Objective - Vital Signs/Intake and Output Vital Signs (last 24 hours): Temp Pulse Resp BP Pulse Ox 98.2 F 64 15 122/59 L 100 08/27/18 05:00 08/27/18 07:00 08/27/18 07:00 08/27/18 07:00 08/27/18 07:00 Intake and Output: 08/27/18 08/27/18 06:59 18:59 Intake Total 1220 Output Total 650 Balance 570 - Medications Medications: Current Medications Acetaminophen (Tylenol 650mg/20.3ml Solution Ud) 650 mg NG Q6 PRN PRN Reason: Temperature Last Admin: 08/25/18 01:06 Dose: 650 mg Amlodipine Besylate (Norvasc) 5 mg PO Q12 [facility] Last Admin: 08/26/18 21:21 Dose: 5 mg Aspirin (Aspirin Chewable) 81 mg PO DAILY [facility] Last Admin: 08/26/18 09:58 Dose: 81 mg Atorvastatin Calcium (Lipitor) 20 mg PO DAILY [facility] Last Admin: 08/26/18 09:59 Dose: 20 mg Dextrose (Dextrose 50% Inj) 0 ml IV STAT PRN; Protocol PRN Reason: Hypoglycemia Protocol Dextrose (Glutose 15) 0 gm PO ONCE PRN; Protocol PRN Reason: Hypoglycemia Protocol Enoxaparin Sodium (Lovenox) 70 mg SC DAILY [facility]; Protocol Last Admin: 08/26/18 10:00 Dose: 70 mg Glucagon (Glucagen Diagnostic Kit) 0 mg IM STAT PRN; Protocol PRN Reason: Hypoglycemia Protocol Hydralazine HCl (Apresoline) 50 mg GT Q6 [facility] Last Admin: 08/27/18 04:36 Dose: 50 mg Vancomycin HCl 1 gm/ Sodium (Chloride) 250 mls @ 166.667 mls/hr IVPB Q48H [facility]; Protocol Last Admin: 08/25/18 12:31 Dose: 166.667 mls/hr Meropenem 500 mg/ Sodium (Chloride) 100 mls @ 100 mls/hr IVPB Q8 [facility]; Protocol Last Admin: 08/27/18 00:53 Dose: 100 mls/hr Insulin Detemir (Levemir) 12 units SC DAILY [facility] Last Admin: 08/26/18 15:00 Dose: 12 unit Insulin Human Lispro (Humalog) 0 units SC [facility]; Protocol Last Admin: 08/27/18 07:32 Dose: 3 u Meclizine HCl (Antivert) 12.5 mg PO DAILY [facility] Last Admin: 08/18/18 09:27 Dose: 12.5 mg Metformin HCl (Glucophage) 1,000 mg PO BID [facility] Last Admin: 08/16/18 09:34 Dose: Not Given Metoprolol Tartrate (Lopressor) 25 mg GT Q6 [facility] Last Admin: 08/27/18 04:36 Dose: 25 mg Pantoprazole Sodium (Protonix Ec Tab) 40 mg PO DAILY [facility] Last Admin: 08/26/18 09:50 Dose: 40 mg Sucralfate (Carafate Oral Susp) 1 gm PO [facility] Last Admin: 08/18/18 22:07 Dose: 1 gm - Labs Labs: 08/26/18 04:50 08/27/18 05:25 PT 13.3 Seconds (9.8-13.1) H 08/25/18 05:00 INR 1.2 08/25/18 05:00 APTT 29.9 Seconds (25.6-37.1) 08/25/18 05:00 Assessment and Plan (1) Acute gastroenteritis Status: Resolved (2) Hypertensive urgency Status: Resolved (3) Abdominal pain in female Status: Resolved (4) Dizziness Status: Acute (5) Type 2 diabetes mellitus with hyperglycemia Status: Chronic (6) NSTEMI (non-ST elevated myocardial infarction) Status: Acute (7) Gallbladder disease Status: Acute (8) AURORA (acute kidney injury) Status: Acute (9) Cardiac arrest Status: Acute (10) Acute respiratory failure Status: Chronic (11) DVT (deep venous thrombosis) Status: Acute (12) Severe anemia Status: Acute (13) Aspiration pneumonia Status: Acute
--- NOTE | 2018-08-27 07:50 | CP.PCM.PN ---
Subjective - Date & Time of Evaluation Date of Evaluation: 08/27/18 Time of Evaluation: 07:40 - Subjective Subjective: Seen and examined at the bed side. Intubated and sedated. Hypernatremia and Azotemia improving. Objective - Vital Signs/Intake and Output Vital Signs (last 24 hours): Temp Pulse Resp BP Pulse Ox 98.2 F 64 15 122/59 L 100 08/27/18 05:00 08/27/18 07:00 08/27/18 07:00 08/27/18 07:00 08/27/18 07:00 Intake and Output: 08/27/18 08/27/18 06:59 18:59 Intake Total 1220 Output Total 650 Balance 570 - Medications Medications: Current Medications Acetaminophen (Tylenol 650mg/20.3ml Solution Ud) 650 mg NG Q6 PRN PRN Reason: Temperature Last Admin: 08/25/18 01:06 Dose: 650 mg Amlodipine Besylate (Norvasc) 5 mg PO Q12 [facility] Last Admin: 08/26/18 21:21 Dose: 5 mg Aspirin (Aspirin Chewable) 81 mg PO DAILY [facility] Last Admin: 08/26/18 09:58 Dose: 81 mg Atorvastatin Calcium (Lipitor) 20 mg PO DAILY [facility] Last Admin: 08/26/18 09:59 Dose: 20 mg Dextrose (Dextrose 50% Inj) 0 ml IV STAT PRN; Protocol PRN Reason: Hypoglycemia Protocol Dextrose (Glutose 15) 0 gm PO ONCE PRN; Protocol PRN Reason: Hypoglycemia Protocol Enoxaparin Sodium (Lovenox) 70 mg SC DAILY [facility]; Protocol Last Admin: 08/26/18 10:00 Dose: 70 mg Glucagon (Glucagen Diagnostic Kit) 0 mg IM STAT PRN; Protocol PRN Reason: Hypoglycemia Protocol Hydralazine HCl (Apresoline) 50 mg GT Q6 [facility] Last Admin: 08/27/18 04:36 Dose: 50 mg Vancomycin HCl 1 gm/ Sodium (Chloride) 250 mls @ 166.667 mls/hr IVPB Q48H [facility]; Protocol Last Admin: 08/25/18 12:31 Dose: 166.667 mls/hr Meropenem 500 mg/ Sodium (Chloride) 100 mls @ 100 mls/hr IVPB Q8 [facility]; Protocol Last Admin: 08/27/18 00:53 Dose: 100 mls/hr Insulin Detemir (Levemir) 12 units SC DAILY [facility] Last Admin: 08/26/18 15:00 Dose: 12 unit Insulin Human Lispro (Humalog) 0 units SC [facility]; Protocol Last Admin: 08/27/18 07:32 Dose: 3 u Meclizine HCl (Antivert) 12.5 mg PO DAILY [facility] Last Admin: 08/18/18 09:27 Dose: 12.5 mg Metformin HCl (Glucophage) 1,000 mg PO BID [facility] Last Admin: 08/16/18 09:34 Dose: Not Given Metoprolol Tartrate (Lopressor) 25 mg GT Q6 [facility] Last Admin: 08/27/18 04:36 Dose: 25 mg Pantoprazole Sodium (Protonix Ec Tab) 40 mg PO DAILY [facility] Last Admin: 08/26/18 09:50 Dose: 40 mg Sucralfate (Carafate Oral Susp) 1 gm PO [facility] Last Admin: 08/18/18 22:07 Dose: 1 gm - Labs Labs: 08/26/18 04:50 08/27/18 05:25 PT 13.3 Seconds (9.8-13.1) H 08/25/18 05:00 INR 1.2 08/25/18 05:00 APTT 29.9 Seconds (25.6-37.1) 08/25/18 05:00 - Head Exam Head Exam: ATRAUMATIC, NORMAL INSPECTION, NORMOCEPHALIC - Eye Exam Eye Exam: EOMI, Normal appearance, PERRL Pupil Exam: NORMAL ACCOMODATION, PERRL - ENT Exam ENT Exam: Mucous Membranes Moist, Normal Exam - Neck Exam Neck Exam: Full ROM, Normal Inspection. absent: Lymphadenopathy - Cardiovascular Exam Cardiovascular Exam: REGULAR RHYTHM, +S1, +S2. absent: Murmur - GI/Abdominal Exam GI & Abdominal Exam: Soft, Normal Bowel Sounds. absent: Tenderness - Exam Speculum exam: NORMAL SPECULUM EXAM - Extremities Exam Extremities Exam: Normal Capillary Refill, Normal Inspection. absent: Joint Swelling, Pedal Edema - Neurological Exam Neurological Exam: Altered, Motor Sensory Deficit Additional comments: Intubated and sedated. - Psychiatric Exam Psychiatric exam: Normal Affect, Normal Mood - Skin Skin Exam: Dry, Intact, Normal Color, Warm Assessment and Plan (1) Acute gastroenteritis Status: Resolved (2) Hypertensive urgency Status: Resolved (3) Abdominal pain in female Status: Resolved (4) Type 2 diabetes mellitus with hyperglycemia Status: Chronic (5) NSTEMI (non-ST elevated myocardial infarction) Status: Acute (6) Gallbladder disease Status: Acute (7) AURORA (acute kidney injury) Status: Acute (8) Cardiac arrest Status: Acute (9) Acute respiratory failure Status: Chronic (10) DVT (deep venous thrombosis) Status: Acute (11) Severe anemia Status: Acute (12) Aspiration pneumonia Status: Acute - Assessment and Plan (Free Text) Plan: PRVC TV 400, RR 8, FIO2 60%, on Propofol sedation Free Water 300 mL every 4 hours through the NG tube Continue IV Merem and Zyvox Respiratory management Renal Function Improving NA+ Improving May Repeat CT Head w/O Contrast, and if no change, we may resume anticoagulation for VTE/NSTEMI. ID, [employer] Education Director and Telemetry Rn onboard D/w [employer] Education Director
--- NOTE | 2018-08-27 08:16 | RAD ---
Date of service: 08/27/2018 HISTORY: reevaluatef COMPARISON: 08/26/2018 FINDINGS: LUNGS: Bilateral pulmonary infiltrates with bilateral pleural effusions. PLEURA: See above. CARDIOVASCULAR: No aortic atherosclerotic calcification present. Normal cardiac size. No pulmonary vascular congestion. OSSEOUS STRUCTURES: No significant abnormalities. VISUALIZED UPPER ABDOMEN: Normal. OTHER FINDINGS: ETT above kevon. IMPRESSION: No significant interval change.
[2018-08-27] MEDS: Insulin Detemir 100 Units/ml Inj SC SCH (08:46)
[2018-08-27] MEDS: Enoxaparin 80 mg Syringe SC SCH (08:47)
[2018-08-27] MEDS: Pantoprazole 40 mg Susp UD NG SCH (11:00)
[2018-08-27] MEDS: Linezolid 600 mg in D5W 300 ml 600 MG/300 ML BAG IVPB SCH ×2 (14:35→20:01)
--- NOTE | 2018-08-27 16:49 | CP.PCM.PN ---
Subjective - Date & Time of Evaluation Date of Evaluation: 08/27/18 Time of Evaluation: 16:46 - Subjective Subjective: Nephrology Consultation Note Assessment: critical acute kidney injury related to multifactorial including sepsis Respiratory failure Sepsis [place] hypernatremia,improving from yesterday serum sodium 151from 154 yesterday fever leukocytosis hypokalemia recommendation continue Scot 300 mL every 4 hours through the NG tube management of infection antibiotics as per renal dose Respiratory management Kidney function improving somewhat supplement lytes as needed Dose meds/antibiotics for reduced GFR. Glycemic control Further work up for as per primary team Thanks for allowing me to participate in care of your patient. Will follow patient with you. Please call if any Qs Dr Fabian Gallagher Office: [phone] Subjective: Noted events overnight. Patients intubated Physical Examination: General Appearance: orally intubated and sedated Vitals reviewed and noted as below Head; Atraumatic, normocephalic Neck; supple no lymphadenopathy, no thyromegaly or bruit Lungs: Normal respiratory rate/effort. Breath sounds bilateral reduced at bases Heart: Normal rate. s1s2 normal. No rub or gallop. Extremities: no edema. No varicose veins Neurological: Patient is sedated Skin: Warm and dry. Normal turgor. No rash. Palpitation: Normal elasticity for age Abdomen: Abdomen is soft. Bowel sounds +. There is no abdominal tenderness, no guarding/rigidity no organomegaly Psych: unable MSK: no joint tenderness or swelling. Digits and nails normal, no deformity : kidney or bladder not palpable Labs/imaging reviewed. Past medical history, past surgical history, family history, social history, allergy reviewed and noted as below Family hx: no hx of CKD. Rest non-contributory Objective - Vital Signs/Intake and Output Vital Signs (last 24 hours): Temp Pulse Resp BP Pulse Ox 99.0 F 73 22 149/58 L 100 08/27/18 16:00 08/27/18 16:09 08/27/18 16:00 08/27/18 16:09 08/27/18 16:00 Intake and Output: 08/27/18 08/27/18 06:59 18:59 Intake Total 1220 1171 Output Total 650 600 Balance 570 571 - Medications Medications: Current Medications Acetaminophen (Tylenol 650mg/20.3ml Solution Ud) 650 mg NG Q6 PRN PRN Reason: Temperature Last Admin: 08/25/18 01:06 Dose: 650 mg Amlodipine Besylate (Norvasc) 5 mg PO Q12 [facility] Last Admin: 08/27/18 08:48 Dose: 5 mg Aspirin (Aspirin Chewable) 81 mg PO DAILY [facility] Last Admin: 08/27/18 09:13 Dose: 81 mg Atorvastatin Calcium (Lipitor) 20 mg PO DAILY [facility] Last Admin: 08/27/18 08:47 Dose: 20 mg Dextrose (Dextrose 50% Inj) 0 ml IV STAT PRN; Protocol PRN Reason: Hypoglycemia Protocol Dextrose (Glutose 15) 0 gm PO ONCE PRN; Protocol PRN Reason: Hypoglycemia Protocol Glucagon (Glucagen Diagnostic Kit) 0 mg IM STAT PRN; Protocol PRN Reason: Hypoglycemia Protocol Hydralazine HCl (Apresoline) 50 mg GT Q6 [facility] Last Admin: 08/27/18 16:08 Dose: 50 mg Meropenem 500 mg/ Sodium (Chloride) 100 mls @ 100 mls/hr IVPB Q8 [facility]; Protocol Last Admin: 08/27/18 16:10 Dose: 100 mls/hr Linezolid (Zyvox 600mg/300ml D5w) 600 mg in 300 mls @ 300 mls/hr IVPB Q12 [facility]; Protocol Last Admin: 08/27/18 14:35 Dose: 300 mls/hr Propofol (Diprivan) 1,000 mg in 100 mls @ 2.218 mls/hr IV .Q24H [facility]; Protocol Stop: 08/28/18 14:30 Last Admin: 08/27/18 14:33 Dose: 15 mcg/kg/min, 6.654 mls/hr Insulin Detemir (Levemir) 12 units SC DAILY [facility] Last Admin: 08/27/18 08:46 Dose: 12 unit Insulin Human Lispro (Humalog) 0 units SC ACHS [facility]; Protocol Last Admin: 08/27/18 11:56 Dose: 3 u Meclizine HCl (Antivert) 12.5 mg PO DAILY [facility] Last Admin: 08/18/18 09:27 Dose: 12.5 mg Metformin HCl (Glucophage) 1,000 mg PO BID [facility] Last Admin: 08/16/18 09:34 Dose: Not Given Metoprolol Tartrate (Lopressor) 25 mg GT Q6 [facility] Last Admin: 08/27/18 16:09 Dose: 25 mg Pantoprazole Sodium (Protonix Susp) 40 mg NG DAILY [facility] Last Admin: 08/27/18 11:00 Dose: 40 mg Sucralfate (Carafate Oral Susp) 1 gm PO ACHS [facility] Last Admin: 08/18/18 22:07 Dose: 1 gm - Labs Labs: 08/26/18 04:50 08/27/18 05:25 PT 13.3 Seconds (9.8-13.1) H 08/25/18 05:00 INR 1.2 08/25/18 05:00 APTT 29.9 Seconds (25.6-37.1) 08/25/18 05:00
[2018-08-28] MEDS: Propofol 10 mg/ml 1,000 MG/100 ML VIAL IV SCH ×2 (04:00→10:45)
[2018-08-28 06:14] LABS: HEMOGLOBIN 8.7 g/dL (12.0-16.0); MEAN CELL VOLUME 91.7 fl (81.0-99.0); MEAN CORPUSCULAR HEMOGLOBIN 30.2 pg (27.0-31.0); MEAN CORPUSCULAR HGB CONC 32.9 g/dL (33.0-37.0); RBC 2.9 Mil/uL (3.80-5.20); RED CELL DISTRIBUTION WIDTH 15.3 % (11.5-14.5); WHITE BLOOD COUNT 14.8 K/uL (4.8-10.8)
[2018-08-28] MEDS: Insulin Lispro (humaLOG) 100 Units/ml Inj SC SCH ×4 (06:31→21:30)
[2018-08-28 06:32] LABS: ABG ALLEN TEST YES; ARTERIAL BLOOD GAS HCO3 23.9 mmol/L (21-28); ARTERIAL BLOOD GAS O2 CAPACITY 14.1 mL/dL (16-24); ARTERIAL BLOOD GAS O2 CONTENT 14.1 ML/dL (15-23); ARTERIAL BLOOD GAS O2 SAT 99.9 % (95-98); ARTERIAL BLOOD GAS PCO2 30 mm/Hg (35-45); ARTERIAL BLOOD GAS PH 7.47 (7.35-7.45); ARTERIAL BLOOD GAS PO2 162 mm/Hg (80-100); ARTERIAL BLOOD GAS TCO2 22.7 mmol/L (22-28)
[2018-08-28 06:33] LABS: CALCIUM 7.8 mg/dL (8.4-10.2)
--- NOTE | 2018-08-28 07:46 | CP.CCUPN ---
CCU Subjective - Physician Review Events Since Last Encounter (Free Text): Patient on ventilator, on PRVC TV 400, RR 8, FIO2 60%, on sedation, no fever, no vomiting, on tube feeding, events reviewed CCU Objective - Vital Signs / Intake & Output Vital Signs (Last 4 hours): Vital Signs Temp Pulse Resp BP Pulse Ox 08/28/18 06:00 69 21 146/67 100 08/28/18 05:00 71 23 139/54 L 100 08/28/18 04:30 74 152/72 H 08/28/18 04:00 100 F H 77 23 140/62 100 Intake and Output (Last 8hrs): Intake & Output 08/27/18 08/28/18 08/28/18 22:59 06:59 14:59 Intake Total 1808 1180 Output Total 350 450 Balance 1458 730 Weight 165 lb Intake: IV 108 80 Intake, Piggyback 700 100 Tube Feeding 400 400 Free Water Flush 600 600 Output: Urine 350 450 Urethral (Jin) 350 450 - Physical Exam Head: Positive for: Atraumatic, Normocephalic Pupils: Positive for: PERRL. Negative for: Sluggish, Non-Reactive, Pinpoint Conjunctiva: Positive for: Normal. Negative for: Injected, Icteric Mouth: Positive for: Moist Mucous Membranes Nose (External): Positive for: Atraumatic Neck: Positive for: Normal Range of Motion Respiratory/Chest: Positive for: Rhonchi Cardiovascular: Positive for: Regular Rate and Rhythm Abdomen: Positive for: Normal Bowel Sounds. Negative for: Tenderness, Distention, Peritoneal Signs Upper Extremity: Positive for: Normal Inspection, NORMAL PULSES, Capillary Refill < 2s. Negative for: Cyanosis, Edema Lower Extremity: Positive for: Normal Inspection. Negative for: Edema, CALF TENDERNESS Neurological: Positive for: Other (on ventilator, opens eyes to verbal stimuli) Psychiatric: Negative for: Alert, Oriented x 3 - Medications Active Medications: Active Medications Generic Name Dose Route Start Last Admin Trade Name Freq PRN Reason Stop Dose Admin Acetaminophen 650 mg 08/24/18 10:29 08/25/18 01:06 Tylenol 650mg/20.3ml Solution Ud NG 650 mg Q6 PRN Administration Temperature Amlodipine Besylate 5 mg 08/22/18 21:00 08/27/18 21:47 Norvasc PO 5 mg Q12 [facility] Administration Aspirin 81 mg 08/21/18 09:00 08/27/18 09:13 Aspirin Chewable PO 81 mg DAILY [facility] Administration Atorvastatin Calcium 20 mg 08/13/18 09:00 08/27/18 08:47 Lipitor PO 20 mg DAILY [facility] Administration Dextrose 0 ml 08/13/18 08:17 Dextrose 50% Inj IV STAT PRN Hypoglycemia Protocol Protocol Dextrose 0 gm 08/13/18 08:17 Glutose 15 PO ONCE PRN Hypoglycemia Protocol Protocol Glucagon 0 mg 08/13/18 08:17 Glucagen Diagnostic Kit IM STAT PRN Hypoglycemia Protocol Protocol Hydralazine HCl 50 mg 08/25/18 16:00 08/28/18 04:30 Apresoline GT 50 mg Q6 [facility] Administration Meropenem 500 mg/ Sodium 100 mls @ 100 mls/hr 08/24/18 12:30 08/28/18 00:00 Chloride IVPB 100 mls/hr Q8 [facility] Administration Protocol Linezolid 600 mg in 300 mls @ 300 mls/hr 08/27/18 13:35 08/27/18 20:01 Zyvox 600mg/300ml D5w IVPB 300 mls/hr Q12 [facility] Administration Protocol Propofol 1,000 mg in 100 mls @ 2.218 mls/hr 08/27/18 14:30 08/28/18 04:00 Diprivan IV 08/28/18 14:30 25 mcg/kg/min .Q24H [facility] 11.09 mls/hr Administration Protocol 5 MCG/KG/MIN Insulin Detemir 12 units 08/26/18 14:00 08/27/18 08:46 Levemir SC 12 unit DAILY [facility] Administration Insulin Human Lispro 0 units 08/13/18 11:30 08/28/18 06:31 Humalog SC 3 u ACHS [facility] Administration Protocol Meclizine HCl 12.5 mg 08/13/18 09:00 08/18/18 09:27 Antivert PO 12.5 mg DAILY [facility] Administration Metformin HCl 1,000 mg 08/13/18 09:00 08/16/18 09:34 Glucophage PO Not Given BID [facility] Metoprolol Tartrate 25 mg 08/25/18 16:00 08/28/18 04:30 Lopressor GT 25 mg Q6 [facility] Administration Pantoprazole Sodium 40 mg 08/27/18 10:00 08/27/18 11:00 Protonix Susp NG 40 mg DAILY [facility] Administration Sucralfate 1 gm 08/14/18 20:30 08/18/18 22:07 Carafate Oral Susp PO 1 gm ACHS [facility] Administration - Patient Studies Lab Studies: Microbiology Studies 08/26/18 04:55 Blood Culture - Preliminary Blood-Venous NO GROWTH AFTER 48 HOURS 08/26/18 04:50 Blood Culture - Preliminary Blood-Venous NO GROWTH AFTER 48 HOURS 08/23/18 18:07 Blood Culture - Preliminary Blood-Venous NO GROWTH AFTER 4 DAYS 08/23/18 18:07 Blood Culture - Preliminary Blood-Venous NO GROWTH AFTER 4 DAYS 08/24/18 12:30 Blood Culture - Preliminary Blood-Venous NO GROWTH AFTER 3 DAYS 08/24/18 12:45 S.aureus & Coag-Neg Staph PNA FISH - Final Blood-Venous Blood Culture - Final Vancomycin Resistant E.faecium Gram Stain - Final Lab Studies 08/28/18 08/28/18 08/28/18 Range/Units 06:30 06:00 05:30 WBC (4.8-10.8) K/uL RBC (3.80-5.20) Mil/uL Hgb (12.0-16.0) g/dL Hct (34.0-47.0) % MCV (81.0-99.0) fl MCH (27.0-31.0) pg MCHC (33.0-37.0) g/dL RDW (11.5-14.5) % Plt Count (130-400) K/uL pCO2 30 L (35-45) mm/Hg pO2 162 H (80-100) mm/Hg HCO3 23.9 (21-28) mmol/L ABG pH 7.47 H (7.35-7.45) ABG Total CO2 22.7 (22-28) mmol/L ABG O2 Saturation 99.9 H (95-98) % ABG O2 Content 14.1 L (15-23) ML/dL ABG Base Excess -1.3 (-2.0-3.0) mmol/L ABG Hemoglobin 10.0 L (11.7-17.4) g/dL ABG Carboxyhemoglobin 0.9 (0.5-1.5) % POC ABG HHb (Measured) 0.1 (0.0-5.0) % ABG Methemoglobin 1.3 (0.0-3.0) % ABG O2 Capacity 14.1 L (16-24) mL/dL Masoud Test Yes A-a O2 Difference 228.0 mm/Hg Hgb O2 Saturation 97.7 (95.0-98.0) % Vent Mode A/c Mechanical Rate 8 FiO2 60.0 % Tidal Volume 400 PEEP 5 Sodium 143 (132-148) mmol/l Potassium 3.4 L (3.6-5.0) MMOL/L Chloride 118 H (98-107) mmol/L Carbon Dioxide 22 (22-30) mmol/L Anion Gap 6 L (10-20) BUN 42 H (7-17) mg/dl Creatinine 1.4 H (0.7-1.2) mg/dl Est GFR ( Amer) 44 Est GFR (Non-Af Amer) 37 POC Glucose (mg/dL) 265 H (65-110) mg/dL Random Glucose 240 H (65-105) mg/dL Calcium 7.8 L (8.4-10.2) mg/dL 08/28/18 08/27/18 08/27/18 Range/Units 05:30 21:15 16:56 WBC 14.8 H (4.8-10.8) K/uL RBC 2.90 L (3.80-5.20) Mil/uL Hgb 8.7 L (12.0-16.0) g/dL Hct 26.6 L (34.0-47.0) % MCV 91.7 (81.0-99.0) fl MCH 30.2 (27.0-31.0) pg MCHC 32.9 L (33.0-37.0) g/dL RDW 15.3 H (11.5-14.5) % Plt Count 250 (130-400) K/uL pCO2 (35-45) mm/Hg pO2 (80-100) mm/Hg HCO3 (21-28) mmol/L ABG pH (7.35-7.45) ABG Total CO2 (22-28) mmol/L ABG O2 Saturation (95-98) % ABG O2 Content (15-23) ML/dL ABG Base Excess (-2.0-3.0) mmol/L ABG Hemoglobin (11.7-17.4) g/dL ABG Carboxyhemoglobin (0.5-1.5) % POC ABG HHb (Measured) (0.0-5.0) % ABG Methemoglobin (0.0-3.0) % ABG O2 Capacity (16-24) mL/dL Masoud Test A-a O2 Difference mm/Hg Hgb O2 Saturation (95.0-98.0) % Vent Mode Mechanical Rate FiO2 % Tidal Volume PEEP Sodium (132-148) mmol/l Potassium (3.6-5.0) MMOL/L Chloride (98-107) mmol/L Carbon Dioxide (22-30) mmol/L Anion Gap (10-20) BUN (7-17) mg/dl Creatinine (0.7-1.2) mg/dl Est GFR ( Amer) Est GFR (Non-Af Amer) POC Glucose (mg/dL) 277 H 317 H (65-110) mg/dL Random Glucose (65-105) mg/dL Calcium (8.4-10.2) mg/dL 08/27/18 Range/Units 11:04 WBC (4.8-10.8) K/uL RBC (3.80-5.20) Mil/uL Hgb (12.0-16.0) g/dL Hct (34.0-47.0) % MCV (81.0-99.0) fl MCH (27.0-31.0) pg MCHC (33.0-37.0) g/dL RDW (11.5-14.5) % Plt Count (130-400) K/uL pCO2 (35-45) mm/Hg pO2 (80-100) mm/Hg HCO3 (21-28) mmol/L ABG pH (7.35-7.45) ABG Total CO2 (22-28) mmol/L ABG O2 Saturation (95-98) % ABG O2 Content (15-23) ML/dL ABG Base Excess (-2.0-3.0) mmol/L ABG Hemoglobin (11.7-17.4) g/dL ABG Carboxyhemoglobin (0.5-1.5) % POC ABG HHb (Measured) (0.0-5.0) % ABG Methemoglobin (0.0-3.0) % ABG O2 Capacity (16-24) mL/dL Masoud Test A-a O2 Difference mm/Hg Hgb O2 Saturation (95.0-98.0) % Vent Mode Mechanical Rate FiO2 % Tidal Volume PEEP Sodium (132-148) mmol/l Potassium (3.6-5.0) MMOL/L Chloride (98-107) mmol/L Carbon Dioxide (22-30) mmol/L Anion Gap (10-20) BUN (7-17) mg/dl Creatinine (0.7-1.2) mg/dl Est GFR ( Amer) Est GFR (Non-Af Amer) POC Glucose (mg/dL) 251 H (65-110) mg/dL Random Glucose (65-105) mg/dL Calcium (8.4-10.2) mg/dL Laboratory Results - last 24 hr 08/27/18 08/27/18 08/27/18 11:04 16:56 21:15 WBC RBC Hgb Hct MCV MCH MCHC RDW Plt Count pCO2 pO2 HCO3 ABG pH ABG Total CO2 ABG O2 Saturation ABG O2 Content ABG Base Excess ABG Hemoglobin ABG Carboxyhemoglobin POC ABG HHb (Measured) ABG Methemoglobin ABG O2 Capacity Masoud Test A-a O2 Difference Hgb O2 Saturation Vent Mode Mechanical Rate FiO2 Tidal Volume PEEP Sodium Potassium Chloride Carbon Dioxide Anion Gap BUN Creatinine Est GFR ( Amer) Est GFR (Non-Af Amer) POC Glucose (mg/dL) 251 H 317 H 277 H Random Glucose Calcium 08/28/18 08/28/18 08/28/18 05:30 05:30 06:00 WBC 14.8 H RBC 2.90 L Hgb 8.7 L Hct 26.6 L MCV 91.7 MCH 30.2 MCHC 32.9 L RDW 15.3 H Plt Count 250 pCO2 pO2 HCO3 ABG pH ABG Total CO2 ABG O2 Saturation ABG O2 Content ABG Base Excess ABG Hemoglobin ABG Carboxyhemoglobin POC ABG HHb (Measured) ABG Methemoglobin ABG O2 Capacity Masoud Test A-a O2 Difference Hgb O2 Saturation Vent Mode Mechanical Rate FiO2 Tidal Volume PEEP Sodium 143 Potassium 3.4 L Chloride 118 H Carbon Dioxide 22 Anion Gap 6 L BUN 42 H Creatinine 1.4 H Est GFR ( Amer) 44 Est GFR (Non-Af Amer) 37 POC Glucose (mg/dL) 265 H Random Glucose 240 H Calcium 7.8 L 08/28/18 06:30 WBC RBC Hgb Hct MCV MCH MCHC RDW Plt Count pCO2 30 L pO2 162 H HCO3 23.9 ABG pH 7.47 H ABG Total CO2 22.7 ABG O2 Saturation 99.9 H ABG O2 Content 14.1 L ABG Base Excess -1.3 ABG Hemoglobin 10.0 L ABG Carboxyhemoglobin 0.9 POC ABG HHb (Measured) 0.1 ABG Methemoglobin 1.3 ABG O2 Capacity 14.1 L Masoud Test Yes A-a O2 Difference 228.0 Hgb O2 Saturation 97.7 Vent Mode A/c Mechanical Rate 8 FiO2 60.0 Tidal Volume 400 PEEP 5 Sodium Potassium Chloride Carbon Dioxide Anion Gap BUN Creatinine Est GFR ( Amer) Est GFR (Non-Af Amer) POC Glucose (mg/dL) Random Glucose Calcium Fingerstick Blood Sugar Results: 365 Assessment/Plan - Assessment and Plan (Free Text) Assessment: A/P Cardiac arrest s/p resuscitation, respiratory failure, CAD, [place], DV, sepsis, GB / biliary tract disease, DM, [place] - Ventilatory support - Weaning as tolerated - Pulmonary toilets - Continue meds - Cardiology follow up - Follow up labs Critical care 40 min
[2018-08-28] MEDS: Insulin Detemir 100 Units/ml Inj SC SCH (08:42)
[2018-08-28] MEDS: Pantoprazole 40 mg Susp UD NG SCH (08:49)
[2018-08-28] MEDS: Linezolid 600 mg in D5W 300 ml 600 MG/300 ML BAG IVPB SCH ×2 (08:49→21:27)
--- NOTE | 2018-08-28 10:07 | CP.PCM.PN ---
Subjective - Date & Time of Evaluation Date of Evaluation: 08/28/18 Time of Evaluation: 08:00 - Subjective Subjective: Nephrology Consultation Note Assessment: critical acute kidney injury related to multifactorial including sepsis Respiratory failure Sepsis [place] hypernatremia,improving from yesterday serum sodium 151from 154 yesterday fever leukocytosis hypokalemia recommendation continue Scot 300 mL every 4 hours through the NG tube management of infection antibiotics as per renal dose Respiratory management Kidney function improving somewhat supplement lytes as needed Dose meds/antibiotics for improved GFR. Glycemic control Further work up for as per primary team Thanks for allowing me to participate in care of your patient. Will follow patient with you. Please call if any Qs Dr Fabian Gallagher Office: [phone] Subjective: Noted events overnight. Patients intubated Physical Examination: General Appearance: orally intubated and restless Vitals reviewed and noted as below Head; Atraumatic, normocephalic Neck; supple no lymphadenopathy, no thyromegaly or bruit Lungs: Normal respiratory rate/effort. Breath sounds bilateral reduced at bases Heart: Normal rate. s1s2 normal. No rub or gallop. Extremities: no edema. No varicose veins Neurological: Patient is sedated Skin: Warm and dry. Normal turgor. No rash. Palpitation: Normal elasticity for age Abdomen: Abdomen is soft. Bowel sounds +. There is no abdominal tenderness, no guarding/rigidity no organomegaly Psych: unable MSK: no joint tenderness or swelling. Digits and nails normal, no deformity : kidney or bladder not palpable Labs/imaging reviewed. Past medical history, past surgical history, family history, social history, allergy reviewed and noted as below Family hx: no hx of CKD. Rest non-contributory Objective - Vital Signs/Intake and Output Vital Signs (last 24 hours): Temp Pulse Resp BP Pulse Ox 100.2 F H 71 18 144/57 L 100 08/28/18 08:00 08/28/18 09:13 08/28/18 09:00 08/28/18 09:13 08/28/18 09:00 Intake and Output: 08/28/18 08/28/18 06:59 18:59 Intake Total 2060 Output Total 650 Balance 1410 - Medications Medications: Current Medications Acetaminophen (Tylenol 650mg/20.3ml Solution Ud) 650 mg NG Q6 PRN PRN Reason: Temperature Last Admin: 08/25/18 01:06 Dose: 650 mg Amlodipine Besylate (Norvasc) 5 mg PO Q12 [facility] Last Admin: 08/28/18 08:48 Dose: 5 mg Aspirin (Aspirin Chewable) 81 mg PO DAILY [facility] Last Admin: 08/28/18 08:47 Dose: 81 mg Hydralazine HCl (Apresoline) 50 mg GT Q6 [facility] Last Admin: 08/28/18 09:13 Dose: 50 mg Meropenem 500 mg/ Sodium (Chloride) 100 mls @ 100 mls/hr IVPB Q8 [facility]; Protocol Last Admin: 08/28/18 00:00 Dose: 100 mls/hr Linezolid (Zyvox 600mg/300ml D5w) 600 mg in 300 mls @ 300 mls/hr IVPB Q12 [facility]; Protocol Last Admin: 08/28/18 08:49 Dose: 300 mls/hr Propofol (Diprivan) 1,000 mg in 100 mls @ 2.218 mls/hr IV .Q24H [facility]; Protocol Stop: 08/28/18 14:30 Last Admin: 08/28/18 04:00 Dose: 25 mcg/kg/min, 11.09 mls/hr Insulin Detemir (Levemir) 12 units SC DAILY [facility] Last Admin: 08/28/18 08:42 Dose: 12 unit Insulin Human Lispro (Humalog) 0 units SC [facility]; Protocol Last Admin: 08/28/18 06:31 Dose: 3 u Meclizine HCl (Antivert) 12.5 mg PO DAILY [facility] Last Admin: 08/18/18 09:27 Dose: 12.5 mg Metformin HCl (Glucophage) 1,000 mg PO BID [facility] Last Admin: 08/16/18 09:34 Dose: Not Given Metoprolol Tartrate (Lopressor) 25 mg GT Q6 [facility] Last Admin: 08/28/18 09:13 Dose: 25 mg Pantoprazole Sodium (Protonix Susp) 40 mg NG DAILY [facility] Last Admin: 08/28/18 08:49 Dose: 40 mg Sucralfate (Carafate Oral Susp) 1 gm PO ACHS [facility] Last Admin: 08/18/18 22:07 Dose: 1 gm - Labs Labs: 08/28/18 05:30 08/28/18 05:30 PT 13.3 Seconds (9.8-13.1) H 08/25/18 05:00 INR 1.2 08/25/18 05:00 APTT 29.9 Seconds (25.6-37.1) 08/25/18 05:00
--- NOTE | 2018-08-28 11:03 | RAD ---
Date of service: 08/28/2018 HISTORY: chest COMPARISON: 08/27/2018 FINDINGS: LUNGS: Slight decrease in pulmonary venous congestion. PLEURA: No significant pleural effusion identified, no pneumothorax apparent. CARDIOVASCULAR: No aortic atherosclerotic calcification present. Cardiomegaly. OSSEOUS STRUCTURES: No significant abnormalities. VISUALIZED UPPER ABDOMEN: Normal. OTHER FINDINGS: ETT above the kevon. IMPRESSION: Slight improvement in pulmonary venous congestion.
[2018-08-28] MEDS: Enoxaparin 80 mg Syringe SC SCH (12:42)
[2018-08-28] MEDS: Meropenem 500 MG in Sodium Chloride 0.9% 100 ML IVPB SCH ×3 (12:43→16:41)
--- NOTE | 2018-08-28 14:09 | CT ---
Date of service: 08/28/2018 PROCEDURE: CT HEAD WITHOUT CONTRAST. HISTORY: CVA with Mass effect, Intubated and Uanble to extu COMPARISON: None available. TECHNIQUE: Axial computed tomography images were obtained through the head/brain without intravenous contrast. Radiation dose: Total exam DLP = 850.3 mGy-cm. This CT exam was performed using one or more of the following dose reduction techniques: Automated exposure control, adjustment of the mA and/or kV according to patient size, and/or use of iterative reconstruction technique. FINDINGS: HEMORRHAGE: No intracranial hemorrhage. BRAIN: No mass effect or edema. No atrophy or chronic microvascular ischemic changes. VENTRICLES: Unremarkable. No hydrocephalus. CALVARIUM: Unremarkable. PARANASAL SINUSES: Unremarkable as visualized. No significant inflammatory changes. MASTOID AIR CELLS: Unremarkable as visualized. No inflammatory changes. OTHER FINDINGS: None. IMPRESSION: Normal CT of the Head.
--- NOTE | 2018-08-28 14:27 | CP.PCM.PN ---
Subjective - Date & Time of Evaluation Date of Evaluation: 08/28/18 Time of Evaluation: 09:00 - Subjective Subjective: intubated lethargic repeat blood c/s neg growing VRE blood Zyvox added all lines removed/ replaced Objective - Vital Signs/Intake and Output Vital Signs (last 24 hours): Temp Pulse Resp BP Pulse Ox 97.6 F 68 22 146/62 100 08/28/18 13:00 08/28/18 14:00 08/28/18 14:00 08/28/18 14:00 08/28/18 14:00 Intake and Output: 08/28/18 08/28/18 06:59 18:59 Intake Total 2060 1500 Output Total 650 Balance 1410 1500 - Medications Medications: Current Medications Acetaminophen (Tylenol 650mg/20.3ml Solution Ud) 650 mg NG Q6 PRN PRN Reason: Temperature Last Admin: 08/25/18 01:06 Dose: 650 mg Amlodipine Besylate (Norvasc) 5 mg PO Q12 [facility] Last Admin: 08/28/18 08:48 Dose: 5 mg Aspirin (Aspirin Chewable) 81 mg PO DAILY [facility] Last Admin: 08/28/18 08:47 Dose: 81 mg Enoxaparin Sodium (Lovenox) 70 mg SC DAILY [facility]; Protocol Last Admin: 08/28/18 12:42 Dose: 70 mg Hydralazine HCl (Apresoline) 50 mg GT Q6 [facility] Last Admin: 08/28/18 09:13 Dose: 50 mg Meropenem 500 mg/ Sodium (Chloride) 100 mls @ 100 mls/hr IVPB Q8 [facility]; Protocol Last Admin: 08/28/18 12:43 Dose: 100 mls/hr Linezolid (Zyvox 600mg/300ml D5w) 600 mg in 300 mls @ 300 mls/hr IVPB Q12 [facility]; Protocol Last Admin: 08/28/18 08:49 Dose: 300 mls/hr Propofol (Diprivan) 1,000 mg in 100 mls @ 2.218 mls/hr IV .Q24H [facility]; Protocol Stop: 08/28/18 14:30 Last Titration: 08/28/18 12:40 Dose: 15 mcg/kg/min, 6.654 mls/hr Insulin Detemir (Levemir) 12 units SC DAILY [facility] Last Admin: 08/28/18 08:42 Dose: 12 unit Insulin Human Lispro (Humalog) 0 units SC [facility]; Protocol Last Admin: 08/28/18 12:41 Dose: 3 u Meclizine HCl (Antivert) 12.5 mg PO DAILY [facility] Last Admin: 08/18/18 09:27 Dose: 12.5 mg Metformin HCl (Glucophage) 1,000 mg PO BID [facility] Last Admin: 08/16/18 09:34 Dose: Not Given Metoprolol Tartrate (Lopressor) 25 mg GT Q6 [facility] Last Admin: 08/28/18 09:13 Dose: 25 mg Pantoprazole Sodium (Protonix Susp) 40 mg NG DAILY [facility] Last Admin: 08/28/18 08:49 Dose: 40 mg Sucralfate (Carafate Oral Susp) 1 gm PO [facility] Last Admin: 08/18/18 22:07 Dose: 1 gm - Labs Labs: 08/28/18 05:30 08/28/18 05:30 PT 13.3 Seconds (9.8-13.1) H 08/25/18 05:00 INR 1.2 08/25/18 05:00 APTT 29.9 Seconds (25.6-37.1) 08/25/18 05:00 - Constitutional Appears: Non-toxic - Head Exam Head Exam: NORMOCEPHALIC - Eye Exam Eye Exam: PERRL Pupil Exam: NORMAL ACCOMODATION - ENT Exam ENT Exam: Mucous Membranes Dry - Neck Exam Neck Exam: absent: Lymphadenopathy - Respiratory Exam Respiratory Exam: Decreased Breath Sounds - Cardiovascular Exam Cardiovascular Exam: REGULAR RHYTHM, +S1, +S2 - GI/Abdominal Exam GI & Abdominal Exam: Distended, Soft. absent: Tenderness - Rectal Exam Rectal Exam: Deferred - Exam Exam: NORMAL INSPECTION - Back Exam Back Exam: absent: CVA tenderness (L), CVA tenderness (R) - Neurological Exam Neurological Exam: Altered - Psychiatric Exam Psychiatric exam: Depressed Assessment and Plan (1) Dehydration Status: Acute (2) NSTEMI (non-ST elevated myocardial infarction) Status: Acute (3) Nausea & vomiting Status: Resolved (4) Type 2 diabetes mellitus with hyperglycemia Status: Chronic (5) Abdominal pain Status: Acute (6) Gallbladder disease Status: Acute (7) Pneumonia Status: Acute - Assessment and Plan (Free Text) Assessment: VRE sepsis/ bacteremia cholecystitis s/p acute NSTEMI resp failure
[2018-08-29] MEDS: Meropenem 500 MG in Sodium Chloride 0.9% 100 ML IVPB SCH ×3 (01:00→17:10)
[2018-08-29] MEDS: Propofol 10 mg/ml 1,000 MG/100 ML VIAL IV SCH ×2 (01:15→09:32)
[2018-08-29 04:38] LABS: ARTERIAL BLOOD GAS HCO3 23.8 mmol/L (21-28); ARTERIAL BLOOD GAS HEMOGLOBIN 8.3 g/dL (11.7-17.4); ARTERIAL BLOOD GAS O2 CAPACITY 11.6 mL/dL (16-24); ARTERIAL BLOOD GAS O2 CONTENT 11.6 ML/dL (15-23); ARTERIAL BLOOD GAS O2 SAT 100.4 % (95-98); ARTERIAL BLOOD GAS PCO2 28 mm/Hg (35-45); ARTERIAL BLOOD GAS PH 7.49 (7.35-7.45); ARTERIAL BLOOD GAS PO2 106 mm/Hg (80-100); ARTERIAL BLOOD GAS TCO2 22.2 mmol/L (22-28)
[2018-08-29 04:45] LABS: ABG ALLEN TEST YES; ARTERIAL BLOOD GAS HCO3 23.8 mmol/L (21-28); ARTERIAL BLOOD GAS HEMOGLOBIN 8.3 g/dL (11.7-17.4); ARTERIAL BLOOD GAS O2 CAPACITY 11.6 mL/dL (16-24); ARTERIAL BLOOD GAS O2 CONTENT 11.6 ML/dL (15-23); ARTERIAL BLOOD GAS O2 SAT 100.4 % (95-98); ARTERIAL BLOOD GAS PCO2 28 mm/Hg (35-45); ARTERIAL BLOOD GAS PH 7.49 (7.35-7.45); ARTERIAL BLOOD GAS PO2 106 mm/Hg (80-100); ARTERIAL BLOOD GAS TCO2 22.2 mmol/L (22-28)
[2018-08-29 05:38] LABS: HEMOGLOBIN 8.3 g/dL (12.0-16.0); MEAN CELL VOLUME 90.5 fl (81.0-99.0); MEAN CORPUSCULAR HEMOGLOBIN 30.7 pg (27.0-31.0); MEAN CORPUSCULAR HGB CONC 33.9 g/dL (33.0-37.0); RBC 2.71 Mil/uL (3.80-5.20); RED CELL DISTRIBUTION WIDTH 14.7 % (11.5-14.5); WHITE BLOOD COUNT 14.8 K/uL (4.8-10.8)
[2018-08-29 05:39] LABS: CALCIUM 7.7 mg/dL (8.4-10.2)
--- NOTE | 2018-08-29 08:36 | CP.PCM.PN ---
Subjective - Date & Time of Evaluation Date of Evaluation: 08/29/18 Time of Evaluation: 08:35 - Subjective Subjective: remain on ventilator Vital sign noted to be stable Objective - Vital Signs/Intake and Output Vital Signs (last 24 hours): Temp Pulse Resp BP Pulse Ox 97.9 F 65 22 153/61 H 98 08/29/18 08:00 08/29/18 08:00 08/29/18 08:00 08/29/18 08:00 08/29/18 08:00 Intake and Output: 08/29/18 08/29/18 06:59 18:59 Intake Total 2101 300 Output Total 650 Balance 1451 300 - Medications Medications: Current Medications Acetaminophen (Tylenol 650mg/20.3ml Solution Ud) 650 mg NG Q6 PRN PRN Reason: Temperature Last Admin: 08/25/18 01:06 Dose: 650 mg Amlodipine Besylate (Norvasc) 5 mg PO Q12 [facility] Last Admin: 08/28/18 21:28 Dose: 5 mg Aspirin (Aspirin Chewable) 81 mg PO DAILY [facility] Last Admin: 08/28/18 08:47 Dose: 81 mg Enoxaparin Sodium (Lovenox) 70 mg SC DAILY [facility]; Protocol Last Admin: 08/28/18 12:42 Dose: 70 mg Hydralazine HCl (Apresoline) 50 mg GT Q6 [facility] Last Admin: 08/29/18 04:41 Dose: 50 mg Meropenem 500 mg/ Sodium (Chloride) 100 mls @ 100 mls/hr IVPB Q8 [facility]; Protocol Last Admin: 08/29/18 01:00 Dose: 100 mls/hr Linezolid (Zyvox 600mg/300ml D5w) 600 mg in 300 mls @ 300 mls/hr IVPB Q12 [facility]; Protocol Last Admin: 08/28/18 21:27 Dose: 300 mls/hr Insulin Detemir (Levemir) 12 units SC DAILY [facility] Last Admin: 08/28/18 08:42 Dose: 12 unit Insulin Human Lispro (Humalog) 0 units SC A[facility]; Protocol Last Admin: 08/28/18 21:30 Dose: 1 u Meclizine HCl (Antivert) 12.5 mg PO DAILY [facility] Last Admin: 08/18/18 09:27 Dose: 12.5 mg Metformin HCl (Glucophage) 1,000 mg PO BID [facility] Last Admin: 08/16/18 09:34 Dose: Not Given Metoprolol Tartrate (Lopressor) 25 mg GT Q6 [facility] Last Admin: 08/29/18 04:40 Dose: 25 mg Pantoprazole Sodium (Protonix Susp) 40 mg NG DAILY [facility] Last Admin: 08/28/18 08:49 Dose: 40 mg Sucralfate (Carafate Oral Susp) 1 gm PO ACHS [facility] Last Admin: 08/18/18 22:07 Dose: 1 gm - Labs Labs: 08/29/18 04:55 08/29/18 04:55 PT 13.3 Seconds (9.8-13.1) H 08/25/18 05:00 INR 1.2 08/25/18 05:00 APTT 29.9 Seconds (25.6-37.1) 08/25/18 05:00 - Constitutional Appears: No Acute Distress - Eye Exam Eye Exam: Conjunctival injection - ENT Exam ENT Exam: Mucous Membranes Moist - Neck Exam Neck Exam: absent: Lymphadenopathy - Respiratory Exam Respiratory Exam: Rhonchi. absent: Chest Wall Tenderness - GI/Abdominal Exam GI & Abdominal Exam: Soft, Normal Bowel Sounds - Extremities Exam Extremities Exam: absent: Calf Tenderness - Back Exam Back Exam: absent: CVA tenderness (L), CVA tenderness (R) - Psychiatric Exam Additional comments: sedated - Skin Skin Exam: absent: Cyanosis Assessment and Plan (1) AURORA (acute kidney injury) Assessment & Plan: acute kidney injury related to multifactorial including sepsis Respiratory failure Sepsis [place] hypernatremia,improving and corrected last serum sodium 142 fever leukocytosis hypokalemia recommendation management of infection antibiotics as per renal dose Respiratory management Kidney function improving .creat. dropping patient needed potassium supplement Status: Acute (2) Acute gastroenteritis Status: Resolved (3) Anginal equivalent Status: Acute
[2018-08-29] MEDS: Insulin Detemir 100 Units/ml Inj SC SCH (09:34)
[2018-08-29] MEDS: Enoxaparin 80 mg Syringe SC SCH ×2 (09:35→21:22)
[2018-08-29] MEDS: Pantoprazole 40 mg Susp UD NG SCH (09:36)
[2018-08-29] MEDS: Linezolid 600 mg in D5W 300 ml 600 MG/300 ML BAG IVPB SCH ×2 (09:36→21:22)
--- NOTE | 2018-08-29 12:44 | RAD ---
Date of service: 08/29/2018 HISTORY: reevaluate COMPARISON: August 28, 2018. FINDINGS: LUNGS: Stable multifocal infiltrates particularly affecting the right lower lobe. PLEURA: No significant pleural effusion identified, no pneumothorax apparent. CARDIOVASCULAR: Atherosclerotic calcifications identified primarily aortic arch. No significant interval change compared to the prior examination(s). OSSEOUS STRUCTURES: No significant abnormalities. VISUALIZED UPPER ABDOMEN: Normal. OTHER FINDINGS: Stable position of endotracheal tube. IMPRESSION: Stable pulmonary parenchymal findings. No new/acute abnormalities.
[2018-08-29] MEDS: Insulin Lispro (humaLOG) 100 Units/ml Inj SC SCH ×3 (12:47→21:35)
[2018-08-29] MEDS: Potassium CL 10mEq/100ml 100 ML IVPB SCH ×2 (12:49→14:00)
[2018-08-29] MEDS ORDERED: Propofol 10 mg/ml 1,000 MG/100 ML VIAL IV SCH (13:00)
--- NOTE | 2018-08-29 14:09 | RAD ---
Date of service: 08/29/2018 PROCEDURE: Portable chest HISTORY: pic line inserted COMPARISON: Earlier same day TECHNIQUE: FINDINGS: Nasogastric tube and endotracheal tube are unchanged. IMPRESSION: There is a new left-sided PICC line that terminates in satisfactory position at the junction of the SVC and right atrium.
--- NOTE | 2018-08-29 15:25 | CP.PCM.PN ---
Subjective - Date & Time of Evaluation Date of Evaluation: 08/29/18 Time of Evaluation: 15:23 - Subjective Subjective: Pt intubated and on sedation. cr improved. trop rechecked and decreasing. Objective - Vital Signs/Intake and Output Vital Signs (last 24 hours): Temp Pulse Resp BP Pulse Ox 98.6 F 92 H 31 H 157/87 H 97 08/29/18 12:00 08/29/18 14:00 08/29/18 14:00 08/29/18 14:00 08/29/18 14:00 Intake and Output: 08/29/18 08/29/18 06:59 18:59 Intake Total 2101 1320 Output Total 650 Balance 1451 1320 - Medications Medications: Current Medications Acetaminophen (Tylenol 650mg/20.3ml Solution Ud) 650 mg NG Q6 PRN PRN Reason: Temperature Last Admin: 08/25/18 01:06 Dose: 650 mg Amlodipine Besylate (Norvasc) 5 mg PO Q12 [facility] Last Admin: 08/29/18 09:36 Dose: 5 mg Aspirin (Aspirin Chewable) 81 mg PO DAILY [facility] Last Admin: 08/29/18 09:32 Dose: 81 mg Enoxaparin Sodium (Lovenox) 70 mg SC DAILY [facility]; Protocol Last Admin: 08/29/18 09:35 Dose: 70 mg Hydralazine HCl (Apresoline) 50 mg GT Q6 [facility] Last Admin: 08/29/18 09:31 Dose: 50 mg Meropenem 500 mg/ Sodium (Chloride) 100 mls @ 100 mls/hr IVPB Q8 [facility]; Protocol Last Admin: 08/29/18 09:35 Dose: 100 mls/hr Linezolid (Zyvox 600mg/300ml D5w) 600 mg in 300 mls @ 300 mls/hr IVPB Q12 [facility]; Protocol Last Admin: 08/29/18 09:36 Dose: 300 mls/hr Propofol (Diprivan) 1,000 mg in 100 mls @ 2.558 mls/hr IV .Q24H [facility]; Protocol Stop: 08/30/18 12:55 Insulin Detemir (Levemir) 12 units SC DAILY [facility] Last Admin: 08/29/18 09:34 Dose: 12 unit Insulin Human Lispro (Humalog) 0 units SC ACHS [facility]; Protocol Last Admin: 08/29/18 12:47 Dose: 2 u Meclizine HCl (Antivert) 12.5 mg PO DAILY [facility] Last Admin: 08/18/18 09:27 Dose: 12.5 mg Metformin HCl (Glucophage) 1,000 mg PO BID [facility] Last Admin: 08/16/18 09:34 Dose: Not Given Metoprolol Tartrate (Lopressor) 50 mg PO Q8 [facility] Pantoprazole Sodium (Protonix Susp) 40 mg NG DAILY [facility] Last Admin: 08/29/18 09:36 Dose: 40 mg Sucralfate (Carafate Oral Susp) 1 gm PO ACHS [facility] Last Admin: 08/18/18 22:07 Dose: 1 gm - Labs Labs: 08/29/18 04:55 08/29/18 04:55 PT 13.3 Seconds (9.8-13.1) H 08/25/18 05:00 INR 1.2 08/25/18 05:00 APTT 29.9 Seconds (25.6-37.1) 08/25/18 05:00 - Constitutional Appears: Confused - Head Exam Head Exam: ATRAUMATIC, NORMAL INSPECTION, NORMOCEPHALIC - Eye Exam Eye Exam: EOMI, Normal appearance, PERRL. absent: Conjunctival injection, Nystagmus, Periorbital swelling, Periorbital tenderness, Scleral icterus Pupil Exam: NORMAL ACCOMODATION, PERRL - ENT Exam ENT Exam: Mucous Membranes Dry. absent: Mucous Membranes Moist, Normal Exam, Normal External Ear Exam, Normal Oropharynx, TM's Normal Bilaterally - Neck Exam Neck Exam: Full ROM, Normal Inspection. absent: Lymphadenopathy, Meningismus, Tenderness, Thyromegaly - Respiratory Exam Respiratory Exam: Clear to Ausculation Bilateral, NORMAL BREATHING PATTERN. absent: Accessory Muscle Use, Chest Wall Tenderness, Decreased Breath Sounds, Prolonged Expiratory Phase, Rales, Rhonchi, Wheezes, Respiratory Distress, Stridor - Cardiovascular Exam Cardiovascular Exam: REGULAR RHYTHM, +S1, +S2, Murmur. absent: Bradycardia, Tachycardia, Clicks, Diastolic murmur, Gallop, Irregular Rhythm, JVD, RRR, Rubs, +S4 - GI/Abdominal Exam GI & Abdominal Exam: Soft, Normal Bowel Sounds. absent: Bruit, Distended, Firm, Guarding, Rigid, Tenderness, Diminished Bowel Sounds, Hernia, Hyperactive Bowel Sounds, Hypoactive Bowel Sounds, Organomegaly, Pulsatile Mass, Rebound, Mass - Rectal Exam Rectal Exam: Deferred - Extremities Exam Extremities Exam: Full ROM, Normal Capillary Refill, Normal Inspection. absent: Calf Tenderness, Joint Swelling, Pedal Edema, Tenderness - Back Exam Back Exam: NORMAL INSPECTION. absent: CVA tenderness (L), CVA tenderness (R), Full ROM, muscle spasm, paraspinal tenderness, rash noted, tenderness, vertebral tenderness - Neurological Exam Neurological Exam: Awake. absent: Abnormal Gait, Alert, Altered, CN II-XII Intact, Motor Sensory Deficit, Normal Gait, Oriented x3, Reflexes Normal - Psychiatric Exam Psychiatric exam: Agitated - Skin Skin Exam: Dry, Intact, Normal Color, Warm Assessment and Plan (1) Mental status alteration Status: Acute (2) NSTEMI (non-ST elevated myocardial infarction) Status: Acute (3) Abnormal EKG Status: Chronic (4) Type 2 diabetes mellitus with hyperglycemia Status: Chronic (5) Hypertension Status: Chronic (6) Acute respiratory failure Status: Acute (7) DVT (deep venous thrombosis) Status: Acute (8) Severe anemia Status: Acute (9) Nausea & vomiting Status: Resolved (10) Acute hypernatremia Status: Resolved (11) CVA (cerebral vascular accident) Status: Acute - Assessment and Plan (Free Text) Plan: trop elevation may be secondary to increase cr. trop decreasing. now that gfr is 40 will increase to q12 lovenox. monitor hb and cr. recheck trop in am. d/w icu team. 45 min total care.
--- NOTE | 2018-08-29 17:59 | CP.PCM.PN ---
Subjective - Date & Time of Evaluation Date of Evaluation: 08/29/18 Time of Evaluation: 14:30 - Subjective Subjective: Neurology Consultation Follow-Up Note: Mrs. Saldana was evaluated this afternoon in the ICU. She was originally admitted to [facility] for GI symptoms, and later during her hospitalization she was admitted to the ICU status post cardiac arrest. At that time she was ound to have subacute stroke on CT Head after AMS. She is currently in ICU and intubated. No family at bedside during time of exam. ROS limited. Objective - Vital Signs/Intake and Output Vital Signs (last 24 hours): Temp Pulse Resp BP Pulse Ox 98.7 F 97 H 31 H 165/72 H 96 08/29/18 16:00 08/29/18 17:10 08/29/18 17:00 08/29/18 17:10 08/29/18 17:00 Intake and Output: 08/29/18 08/29/18 06:59 18:59 Intake Total 2101 2320 Output Total 650 Balance 1451 2320 - Medications Medications: Current Medications Acetaminophen (Tylenol 650mg/20.3ml Solution Ud) 650 mg NG Q6 PRN PRN Reason: Temperature Last Admin: 08/25/18 01:06 Dose: 650 mg Amlodipine Besylate (Norvasc) 5 mg PO Q12 [facility] Last Admin: 08/29/18 09:36 Dose: 5 mg Aspirin (Aspirin Chewable) 81 mg PO DAILY [facility] Last Admin: 08/29/18 09:32 Dose: 81 mg Enoxaparin Sodium (Lovenox) 80 mg SC Q12 [facility]; Protocol Hydralazine HCl (Apresoline) 50 mg GT Q6 [facility] Last Admin: 08/29/18 17:05 Dose: 50 mg Meropenem 500 mg/ Sodium (Chloride) 100 mls @ 100 mls/hr IVPB Q8 [facility]; Protocol Last Admin: 08/29/18 17:10 Dose: 100 mls/hr Linezolid (Zyvox 600mg/300ml D5w) 600 mg in 300 mls @ 300 mls/hr IVPB Q12 [facility]; Protocol Last Admin: 08/29/18 09:36 Dose: 300 mls/hr Propofol (Diprivan) 1,000 mg in 100 mls @ 2.558 mls/hr IV .Q24H [facility]; Protocol Stop: 08/30/18 12:55 Last Admin: 08/29/18 17:07 Dose: 10 mcg/kg/min, 5.117 mls/hr Insulin Detemir (Levemir) 12 units SC DAILY [facility] Last Admin: 08/29/18 09:34 Dose: 12 unit Insulin Human Lispro (Humalog) 0 units SC [facility]; Protocol Last Admin: 08/29/18 17:08 Dose: 2 u Meclizine HCl (Antivert) 12.5 mg PO DAILY [facility] Last Admin: 08/18/18 09:27 Dose: 12.5 mg Metformin HCl (Glucophage) 1,000 mg PO BID [facility] Last Admin: 08/16/18 09:34 Dose: Not Given Metoprolol Tartrate (Lopressor) 50 mg PO Q8 [facility] Last Admin: 08/29/18 17:10 Dose: 50 mg Pantoprazole Sodium (Protonix Susp) 40 mg NG DAILY [facility] Last Admin: 08/29/18 09:36 Dose: 40 mg Sucralfate (Carafate Oral Susp) 1 gm PO [facility] Last Admin: 08/18/18 22:07 Dose: 1 gm - Labs Labs: 08/29/18 04:55 08/29/18 04:55 PT 13.3 Seconds (9.8-13.1) H 08/25/18 05:00 INR 1.2 08/25/18 05:00 APTT 29.9 Seconds (25.6-37.1) 08/25/18 05:00 - Constitutional Appears: In Acute Distress, Older Than Stated Age, Other (ICU patient; appears to be restless during exam) - Head Exam Head Exam: ATRAUMATIC, NORMAL INSPECTION, NORMOCEPHALIC - Eye Exam Eye Exam: PERRL Pupil Exam: PERRL - Neck Exam Neck Exam: Normal Inspection - Respiratory Exam Additional comments: intubated - Neurological Exam Additional comments: Intubated; nonverbal; on sedation Arousable to sternal rub; grimaces stimulus applied Fine motor, strength, obstetrics technician cannot be assessed due to pt's condition. + random jerky movements noted to all extremities during exam +corneal reflexes +gag reflex +doll's eyes - Psychiatric Exam Additional comments: intubated - Skin Skin Exam: Normal Color Assessment and Plan (1) CVA (cerebral vascular accident) Assessment & Plan: Imaging: -CT Head (08/27/18): Normal CT of the Head. -CT Head (08/23/18): Interval acute subacute infarct left FUR SORTER distribution. No definite hemorrhage. Local mass effect identified without global mass effect appreciable. Follow-up CT or MRI advised. -CT Head (08/13/18): Age-appropriate age related neuro degenerative findings without acute intracranial changes at this time. -ECHO w/ Bubble: EF 60-65%; No ASD or PFO noted. -Mrs. Whitney remains intubated; she is post-cardiopulmonary resuscitation with likely associated anoxic brain injury. -Spontaneous breathing trial per ICU team. -She was restless during exam today and was noted to have jerky movement of all extremities; cannot be certain if these movements are related to her restless or possible seizure activity 2/2 stroke. -VEEG x24 hours ordered to r/o seizure--will f/u with results once completed. -Continue BP control. -Continue ASA and Lovenox per cardio. -Please notify neuro team of any acute changes. -We will continue to follow the patient while she is in the hospital. Case discussed with Dr. Arguelles Thank you for allowing us to participate in this patient's care. Status: Acute
--- NOTE | 2018-08-29 20:08 | PN ---
DATE: 08/29/2018 CRITICAL CARE PROGRESS NOTE LOCATION: The patient in ICU, bed #427. TIME SPENT: 35 minutes. SUBJECTIVE: The patient is seen and evaluated at the bedside. Past medical, surgical, family, and social history reviewed. Events since admission noted. Overnight events reviewed. Case discussed in Multidisciplinary ICU rounds this morning. HISTORY OF PRESENT ILLNESS: A 73-year-old female with history significant for hypertension, diabetes mellitus type 2, gastritis, admitted through emergency room on 08/13/2018 complaining of epigastric pain. Initial CT abdomen showed no acute pathology. While waiting in the x-ray department, the patient had Code Blue, status post cardiopulmonary resuscitation, remains intubated, on mechanical ventilation. Spontaneous breathing trial attempted, but failed due to respiratory distress and decreasing oxygen saturation, currently on AC 8, tidal volume 400, FIO2 40%, saturating 99%, minute ventilation 6.1 liters, observed tidal volume 400, respiratory rate 17, sedated on Diprivan drip. Telemetry is sinus rhythm. PHYSICAL EXAMINATION: VITAL SIGNS: Temperature 97.9, blood pressure 158/66, heart rate 80, respiratory rate 16, saturating 98% on FIO2 of 40%, end-tidal CO2 22. Intake 4201, output 1150, positive balance 351. HEAD, EYES, EARS, NOSE, AND THROAT: Pupils are reactive. Conjunctivae pink. Sclerae white. NECK: Supple. Trachea is central. CHEST: Bilateral breath sounds. Fine crepitations at the bases. HEART: Rhythm regular. S1 and S2, normal in intensity. No S3, S4, or gallop. ABDOMEN: Bowel sounds present. Soft. Liver and spleen not palpable. Bladder not distended. EXTREMITIES: 1+ edema. DP palpable. NEUROLOGICAL: Sedated on Diprivan drip. On reducing the sedation, the patient was noted to be restless. CURRENT MEDICATIONS: Tylenol 650 mg every 6 hours p.r.n., Norvasc 5 mg p.o. every 12 hours, aspirin 81 mg p.o. daily, Lovenox 70 mg subcutaneous daily, hydralazine 50 mg every 6 hours, Levemir 12 units subcutaneous daily, Humalog on Accu-Chek coverage, Zyvox 600 mg IV every 12 hours, Antivert 12.5 mg daily, meropenem 500 mg IV every 8 hours, metformin 1000 mg p.o. b.i.d., Lopressor 25 mg every 6 hours, Protonix 40 daily, metformin on hold, potassium supplement, Carafate 1 g p.o. before meals and at bedtime. LABORATORY DATA : WBC 14.8, hemoglobin 8.3, hematocrit 24.5, platelet count 251. PT 13.5, INR 1.2, PTT 29.9, D-dimer 1790. ABG: pH 7.49, pCO2 28, pO2 106. Oxygen saturation 100% on AC 8, 400, 40%, PEEP of 5. SMA-7: Sodium 142, potassium 3.1, chloride 140, CO2 20, blood urea nitrogen 38, creatinine 1.3, random glucose 176, calcium 7.7. Urinalysis: Nitrites negative, bilirubin negative. Leukocyte esterase negative. Stool occult blood positive. Vancomycin trough level 8.2. Random vancomycin trough level 8.2. Serology; Clostridium difficile antigen and antibody negative. Microbiology; blood culture positive for vancomycin-resistant Enterococcus faecium. Sputum culture positive for yeast species. Chest x-ray: Endotracheal tube in place, infiltrate. Slight improvement in pulmonary vascular congestion. IMPRESSION: 1. Neuro: Sedated on Diprivan drip, restless on reducing the Diprivan drip, status post cardiopulmonary resuscitation, associated suspected anoxic brain injury. Head CT on 08/27/2018 showed no acute pathology. 2. Cardiac: Normotensive. No cardiac arrhythmia. 3. Pulmonary: Intubated, on mechanical ventilation. Pulmonary vascular congestion. 4. Renal: Improved hypernatremia, hypokalemia; supplemented. Normal magnesium and phosphorus level. Appreciate renal followup. 5. Gastrointestinal: No acute issues noted on gastrointestinal prophylaxis. 6. Hematology: Leukocytosis trending down, hemoglobin and hematocrit mildly decreased, related to intravenous hydration. 7. Infectious Disease: Gram vancomycin-resistant Enterococcus bacteremia, on meropenem and Zyvox. PLAN: Keep head of bed at 30 degree up. Spontaneous breathing trial as tolerated. PICC line for IV access. Maintain Jin for adequate intake-output measurement. Mandeep Dixon MD
[2018-08-29] MEDS ORDERED: Metoprolol 1 mg/ml Inj IVP STA (23:15)
[2018-08-30] MEDS: Meropenem 500 MG in Sodium Chloride 0.9% 100 ML IVPB SCH ×3 (04:19→16:38)
[2018-08-30 04:51] LABS: ABG ALLEN TEST YES; ARTERIAL BLOOD GAS HCO3 21.8 mmol/L (21-28); ARTERIAL BLOOD GAS HEMOGLOBIN 11.5 g/dL (11.7-17.4); ARTERIAL BLOOD GAS O2 CAPACITY 15.8 mL/dL (16-24); ARTERIAL BLOOD GAS O2 CONTENT 15.5 ML/dL (15-23); ARTERIAL BLOOD GAS O2 SAT 97.9 % (95-98); ARTERIAL BLOOD GAS PCO2 36 mm/Hg (35-45); ARTERIAL BLOOD GAS PH 7.37 (7.35-7.45); ARTERIAL BLOOD GAS PO2 81 mm/Hg (80-100); ARTERIAL BLOOD GAS TCO2 21.9 mmol/L (22-28)
[2018-08-30 05:41] LABS: BASO # 0.1 K/uL (0.0-0.2); BASO % 0.3 % (0.0-2.0); EOS # 0.1 K/uL (0.0-0.7); EOS % 0.7 % (0.0-4.0); LYMPH # 0.8 K/uL (1.0-4.3); LYMPH % 3.8 % (20.0-40.0); MEAN CELL VOLUME 91.9 fl (81.0-99.0); MEAN CORPUSCULAR HGB CONC 32.6 g/dL (33.0-37.0); MEAN PLATELET VOLUME 9.7 fl (7.2-11.7); MONO # 1.2 K/uL (0.0-0.8); MONO % 6.2 % (0.0-10.0); NEUT # 17.8 K/uL (1.8-7.0); PLATELET COUNT 318 K/uL (130-400); RBC 2.99 Mil/uL (3.80-5.20); RED CELL DISTRIBUTION WIDTH 14.8 % (11.5-14.5)
[2018-08-30 06:03] LABS: CALCIUM 8.1 mg/dL (8.4-10.2)
--- NOTE | 2018-08-30 06:03 | PCM.PROC ---
Procedures Attestation:: I certify that I have explained the specified Operation(s) or Procedure(s), risks, benefits and reasonable alternatives to the Patient and/or other person responsible. The opportunity was given to ask questions and all questions answered - Intubation Time Out Performed: Yes Sedative: Other Laryngoscope: Mackenzie ET Tube Size: 7.5 ET Tube Uncuffed: No ET Tube Secured Locarion: Lips ET Tube Placement Confirmation: Visualized Passing Through Cords, Breath Sounds Equal Bilaterally, No Breath Sounds Over Epigastrum, Confirmation w/Capnometry Patient Tolerated Procedure: Well, No Complications Procedure Immediate Complications: None (Patient reintubated because the tube was out at 17cm at the lips with harsh expectory rhonchi, which returned even after air was placed in bulb.)
[2018-08-30] MEDS: Insulin Lispro (humaLOG) 100 Units/ml Inj SC SCH ×4 (06:30→22:00)
[2018-08-30] MEDS: Insulin Detemir 100 Units/ml Inj SC SCH (09:39)
[2018-08-30] MEDS: Enoxaparin 80 mg Syringe SC SCH ×2 (09:41→21:14)
[2018-08-30] MEDS: Pantoprazole 40 mg Susp UD NG SCH (09:42)
[2018-08-30] MEDS: Linezolid 600 mg in D5W 300 ml 600 MG/300 ML BAG IVPB SCH ×2 (09:43→21:14)
--- NOTE | 2018-08-30 09:58 | PCM.VEEG ---
Video EEG - Procedure Start Date: 08/29/18 Start Time: 20:15 End Date: 08/30/18 End Time: 08:30 Technical Summary: DATA ACQUISITION: This was a multichannel inpatient video-EEG, a minimum of 22 channels were uti lized, performed in accordance with recommendations specified by the [place] [employer] (Angelo Miranda et al. ACNS Guideline 1: Minimum Technical Requirements for Performing Clinical Electroencephalography. Journal of Clinical Neurophysiology 2016;33:303-7). The 10-20 electrode placement system was utilized in accordance with guidelines detailed by the International Federation of Clinical Neurophysiology (Amador Nino et al. The Ten-Twenty Electrode System of the International Federation. Recommendations for the Practice of Clinical Neurophysiology: Guidelines of the International Federation of Clinical Physiology 1999; EEG Suppl. 52.). DATA REVIEW / SPIKE DETECTION / DIGITAL ANALYSIS: The entire EEG was scanned and reviewed. Synchronized audio and video recording were reviewed at the time of each alarm and whenever an abnormality or suspicious activity was noted. The entire recording was analyzed utilizing an automated digital spike and seizure analysis program and all automatic spike and seizure detections were manually reviewed. A compressed spectral array was displayed and reviewed alongside the raw EEG tracings. In addition, further analysis of the EEG was performed when abnormalities were identified, including montage changes, dipole source localization, and frequency band identification. Video portion of the study is necessary to correlate abnormal EEG activity with clinical behavior. This study was attended 24 hours per day - Interpretation Description of the study: Indication; 73 y/o woman s/p cardiac arrest now with persistent AMS, concern for NCSE. EEG Finding during wakefulness: During the awake states, the EEG was characterized by 10-12 Hz, 15-30 uV activity bilaterally in fronto-central regions. Resting wakefulness was characterized by a poorly developed posterior dominant rhythm of 6 to 7 Hz, 30- 50 uV, which was poorly reactive to eye opening and closing, these was only seen during stimulation.. Drowsiness was associated with slow roving eye movements, slowing and fragmentation of the posterior dominant rhythm, and bilateral 4-7 Hz, 40-70 uV theta activity, sometimes with a shifting predominance. There was intermittent bifrontal rhythmic delta slowing at 3 to 4 Hz lasting 3 to 6 seconds mainly seen during drowsiness occasionally during wakefulness EEG Finding during sleep: Normal sleep architecture was not see, when the patient was clinically asleep the EEG showed diffuse bilateral slowing at 4 to 5 Hz. Interictal non-epileptiform abnormalities: None Interictal epileptiform abnormalities: None Ictal epileptiform abnormalities: none Induction procedures: None - Impression Impression: This was an abnormal video EEG, monitoring study, due to the presence of: 1- Moderate background slowing, and EEG disorganization. No episodes were capture. No seizures, not in status epilepticus. INTERPRETATION: The above findings are in keeping with a moderate non specific diffuse disturbance of cortical activity. This is in keeping with a diffuse cifuentes matter dysfunction. The findings do not suggest a specific etiology.
--- NOTE | 2018-08-30 10:12 | RAD ---
Date of service: 08/30/2018 HISTORY: Protocol COMPARISON: No prior. FINDINGS: LUNGS: Persistent opacity at right lung base. Possible pneumonia. No new opacity elsewhere. PLEURA: Possible small left pleural effusion. Silhouetting of left hemidiaphragm. No right pleural effusion. No pneumothorax. CARDIOVASCULAR: Atherosclerotic calcification of the aortic arch is noted Normal heart size. No congestive change. Endotracheal tube, nasogastric tube and left PICC catheter are all grossly unchanged. OSSEOUS STRUCTURES: No significant abnormalities. VISUALIZED UPPER ABDOMEN: Normal. OTHER FINDINGS: None. IMPRESSION: No significant change.
--- NOTE | 2018-08-30 10:32 | RAD ---
Date of service: 08/30/2018 HISTORY: post reintubation COMPARISON: No prior. 08/30/2018 at 4:14 a.m. FINDINGS: LUNGS: Patchy right upper lobe opacity. New since prior. Persistent right basilar opacity. Possible pneumonia. No other infiltrate seen elsewhere. PLEURA: Possible small left pleural effusion. No right pleural effusion. No pneumothorax. CARDIOVASCULAR: Endotracheal tube and nasogastric tube and left PICC catheter unchanged. Normal cardiac size. No pulmonary vascular congestion. OSSEOUS STRUCTURES: No significant abnormalities. VISUALIZED UPPER ABDOMEN: Normal. OTHER FINDINGS: None. IMPRESSION: Vague right basilar opacity and possible new right upper lobe opacity. Possible left pleural effusion. Follow-up advised. Lines and tubes unchanged.
--- NOTE | 2018-08-30 10:33 | CP.CCUPN ---
<Nicole Umana - Last Filed: 08/30/18 13:44> CCU Subjective - Physician Review Subjective (Free Text): 08/30/18 11:32 This is 73 y/o F admitted to ICU s/p resuscitation from Code Blue/cardiac arrest. Patient was seen and examined this morning at bedside, patient was reintubated overnight. Patient is easily arousable on sedation, jerky UEs/LEs movements noted. VS: Afebrile, 139/54, HR 71, intubated/MV PE: HEENT: no icterus, no gaze preference, Pupils 3 mm and reactive NECK: No JVD visible, supple, carotids equal upstroke bilat/no bruit CHEST: decreased BS at the bases, no wheezes audible, Intubated/IMV HEART: regular, distant, S1S2, no rubs ABD: soft and nontender, no tympany, no guarding, no organomegaly, BS absent. EXT: no LE edema, no calf tenderness or palpable cords, distal pulses intact and symmetrical, jerky UEs/LEs movements noted NEURO: no focal motor weakness SKIN: no rashes, warm and dry LABS: WBC 20 H/H: 27.5 Plt 318 ABG reviewed: 7.37/36 pco2/pO2 81/HCO3 21.8 CMP: Significant for CO2 112, BUN/Cr 39/1.4, Ca+ 8.1 Imaging: -CT Head (08/27/18): Normal CT of the Head. -CT Head (08/23/18): Interval acute subacute infarct left [employer] distribution. No definite hemorrhage. Local mass effect identified without global mass effect appreciable. Follow-up CT or MRI advised. -CT Head (08/13/18): Age-appropriate age related neuro degenerative findings without acute intracranial changes at this time. -ECHO w/ Bubble: EF 60-65%; No ASD or PFO noted. -CXR: Vague R basilar opacity, Possible new RUL opacity and L pleural effusion, Line and tubes unchanged IMPRESSION/MAJOR PROBLEMS: S/p Cardiac Arrest, Acute resp failure Acute/Subacute NSTEMI VRE Bacteremia/Sepsis, Coag neg Staph A[place]A, multifactorial GI symptoms/GB / Biliary Tract disease DVT Anemia CVA DM-II HTN PLAN: - C/w VEEG as per Neuro - Wean of sedation after VEEG/Plan for CPAP/Extubation - Staph coag neg Bacteremia/ VRE, C/w Lisa and Linezolid as per ID - NSTEMI: C/w Lovenox 80mg SC Q12H, trop trending down - C/w Hydralazine/ Metoprolol/Norvasc - C/w Insulin Leve 12 U SC daily and Lispro - C/w Protonix - C/w Feeding Case discussed with ICU attending 08/30/18 12:08 \ CCU Objective - Vital Signs / Intake & Output Vital Signs (Last 4 hours): Vital Signs Pulse Resp BP Pulse Ox 08/30/18 09:42 63 154/58 H 08/30/18 09:41 63 154/58 H 08/30/18 09:38 63 154/58 H 08/30/18 08:00 63 16 154/58 H 98 08/30/18 07:00 63 22 138/56 L 100 Intake and Output (Last 8hrs): Intake & Output 08/29/18 08/30/18 08/30/18 22:59 06:59 14:59 Intake Total 1500 1000 100 Output Total 700 1000 5 Balance 800 0 95 Weight 175 lb 6.4 oz Intake: IV 100 50 Oral 100 Tube Feeding 800 300 50 Free Water Flush 600 600 Output: Urine 700 1000 5 Urethral (Jin) 700 1000 5 Other: # Bowel Movements 1 - Medications Active Medications: Active Medications Generic Name Dose Route Start Last Admin Trade Name Freq PRN Reason Stop Dose Admin Acetaminophen 650 mg 08/24/18 10:29 08/25/18 01:06 Tylenol 650mg/20.3ml Solution Ud NG 650 mg Q6 PRN Administration Temperature Amlodipine Besylate 5 mg 08/22/18 21:00 08/30/18 09:42 Norvasc PO 5 mg Q12 CARMEN Administration Aspirin 81 mg 08/21/18 09:00 08/30/18 09:39 Aspirin Chewable PO 81 mg DAILY CARMEN Administration Enoxaparin Sodium 80 mg 08/29/18 21:00 08/30/18 09:41 Lovenox SC 80 mg Q12 CAREMN Administration Protocol Hydralazine HCl 50 mg 08/25/18 16:00 08/30/18 09:38 Apresoline GT 50 mg Q6 CARMEN Administration Meropenem 500 mg/ Sodium 100 mls @ 100 mls/hr 08/24/18 12:30 08/30/18 08:13 Chloride IVPB 100 mls/hr Q8 CARMEN Administration Protocol Linezolid 600 mg in 300 mls @ 300 mls/hr 08/27/18 13:35 08/30/18 09:43 Zyvox 600mg/300ml D5w IVPB 300 mls/hr Q12 CARMEN Administration Protocol Propofol 1,000 mg in 100 mls @ 2.558 mls/hr 08/29/18 13:00 08/29/18 17:07 Diprivan IV 08/30/18 12:55 10 mcg/kg/min .Q24H CARMEN 5.117 mls/hr Administration Protocol 5 MCG/KG/MIN Insulin Detemir 12 units 08/26/18 14:00 08/30/18 09:39 Levemir SC 12 unit DAILY CARMEN Administration Insulin Human Lispro 0 units 08/13/18 11:30 08/30/18 06:30 Humalog SC 4 u ACHS CARMEN Administration Protocol Meclizine HCl 12.5 mg 08/13/18 09:00 08/18/18 09:27 Antivert PO 12.5 mg DAILY CARMEN Administration Metformin HCl 1,000 mg 08/13/18 09:00 08/16/18 09:34 Glucophage PO Not Given BID [facility] Metoprolol Tartrate 50 mg 08/29/18 17:00 08/30/18 09:41 Lopressor PO 50 mg Q8 CARMEN Administration Pantoprazole Sodium 40 mg 08/27/18 10:00 08/30/18 09:42 Protonix Susp NG 40 mg DAILY CARMEN Administration Sucralfate 1 gm 08/14/18 20:30 08/18/18 22:07 Carafate Oral Susp PO 1 gm ACHS CARMEN Administration - Patient Studies Lab Studies: Microbiology Studies 08/26/18 04:55 Blood Culture - Preliminary Blood-Venous NO GROWTH AFTER 4 DAYS 08/26/18 04:50 Blood Culture - Preliminary Blood-Venous NO GROWTH AFTER 4 DAYS 08/24/18 12:30 Blood Culture - Final Blood-Venous NO GROWTH AFTER 5 DAYS Gram Stain - Final TEST NOT PERFORMED Lab Studies 08/30/18 08/30/18 08/30/18 Range/Units 05:51 05:00 05:00 WBC 20.0 H (4.8-10.8) K/uL RBC 2.99 L (3.80-5.20) Mil/uL Hgb 9.0 L (12.0-16.0) g/dL Hct 27.5 L (34.0-47.0) % MCV 91.9 (81.0-99.0) fl MCH 30.0 (27.0-31.0) pg MCHC 32.6 L (33.0-37.0) g/dL RDW 14.8 H (11.5-14.5) % Plt Count 318 (130-400) K/uL MPV 9.7 (7.2-11.7) fl Neut % (Auto) 89.0 H (50.0-75.0) % Lymph % (Auto) 3.8 L (20.0-40.0) % Jess[place] % (Auto) 6.2 (0.0-10.0) % Eos % (Auto) 0.7 (0.0-4.0) % Baso % (Auto) 0.3 (0.0-2.0) % Neut # (Auto) 17.8 H (1.8-7.0) K/uL Lymph # (Auto) 0.8 L (1.0-4.3) K/uL Jess[place] # (Auto) 1.2 H (0.0-0.8) K/uL Eos # (Auto) 0.1 (0.0-0.7) K/uL Baso # (Auto) 0.1 (0.0-0.2) K/uL pCO2 (35-45) mm/Hg pO2 (80-100) mm/Hg HCO3 (21-28) mmol/L ABG pH (7.35-7.45) ABG Total CO2 (22-28) mmol/L ABG O2 Saturation (95-98) % ABG O2 Content (15-23) ML/dL ABG Base Excess (-2.0-3.0) mmol/L ABG Hemoglobin (11.7-17.4) g/dL ABG Carboxyhemoglobin (0.5-1.5) % POC ABG HHb (Measured) (0.0-5.0) % ABG Methemoglobin (0.0-3.0) % ABG O2 Capacity (16-24) mL/dL Masoud Test A-a O2 Difference mm/Hg Hgb O2 Saturation (95.0-98.0) % Vent Mode Mechanical Rate FiO2 % Tidal Volume PEEP Pressure Support Sodium 141 (132-148) mmol/l Potassium 3.6 (3.6-5.0) MMOL/L Chloride 112 H (98-107) mmol/L Carbon Dioxide 21 L (22-30) mmol/L Anion Gap 12 (10-20) BUN 39 H (7-17) mg/dl Creatinine 1.4 H (0.7-1.2) mg/dl Est GFR ( Amer) 44 Est GFR (Non-Af Amer) 37 POC Glucose (mg/dL) 314 H (65-110) mg/dL Random Glucose 297 H (65-105) mg/dL Calcium 8.1 L (8.4-10.2) mg/dL Troponin I (0.00-0.120) ng/mL 08/30/18 08/29/18 08/29/18 Range/Units 04:47 21:33 16:58 WBC (4.8-10.8) K/uL RBC (3.80-5.20) Mil/uL Hgb (12.0-16.0) g/dL Hct (34.0-47.0) % MCV (81.0-99.0) fl MCH (27.0-31.0) pg MCHC (33.0-37.0) g/dL RDW (11.5-14.5) % Plt Count (130-400) K/uL MPV (7.2-11.7) fl Neut % (Auto) (50.0-75.0) % Lymph % (Auto) (20.0-40.0) % [place] % (Auto) (0.0-10.0) % Eos % (Auto) (0.0-4.0) % Baso % (Auto) (0.0-2.0) % Neut # (Auto) (1.8-7.0) K/uL Lymph # (Auto) (1.0-4.3) K/uL Jess[place] # (Auto) (0.0-0.8) K/uL Eos # (Auto) (0.0-0.7) K/uL Baso # (Auto) (0.0-0.2) K/uL pCO2 36 (35-45) mm/Hg pO2 81 (80-100) mm/Hg HCO3 21.8 (21-28) mmol/L ABG pH 7.37 (7.35-7.45) ABG Total CO2 21.9 L (22-28) mmol/L ABG O2 Saturation 97.9 (95-98) % ABG O2 Content 15.5 (15-23) ML/dL ABG Base Excess -4.0 L (-2.0-3.0) mmol/L ABG Hemoglobin 11.5 L (11.7-17.4) g/dL ABG Carboxyhemoglobin 1.3 (0.5-1.5) % POC ABG HHb (Measured) 2.0 (0.0-5.0) % ABG Methemoglobin 1.3 (0.0-3.0) % ABG O2 Capacity 15.8 L (16-24) mL/dL Masoud Test Yes A-a O2 Difference 159.0 mm/Hg Hgb O2 Saturation 95.3 (95.0-98.0) % Vent Mode Simv Mechanical Rate 8 FiO2 40.0 % Tidal Volume 400 PEEP 5 Pressure Support 10 Sodium (132-148) mmol/l Potassium (3.6-5.0) MMOL/L Chloride (98-107) mmol/L Carbon Dioxide (22-30) mmol/L Anion Gap (10-20) BUN (7-17) mg/dl Creatinine (0.7-1.2) mg/dl Est GFR ( Amer) Est GFR (Non-Af Amer) POC Glucose (mg/dL) 237 H 245 H (65-110) mg/dL Random Glucose (65-105) mg/dL Calcium (8.4-10.2) mg/dL Troponin I (0.00-0.120) ng/mL 08/29/18 08/29/18 Range/Units 12:35 11:30 WBC (4.8-10.8) K/uL RBC (3.80-5.20) Mil/uL Hgb (12.0-16.0) g/dL Hct (34.0-47.0) % MCV (81.0-99.0) fl MCH (27.0-31.0) pg MCHC (33.0-37.0) g/dL RDW (11.5-14.5) % Plt Count (130-400) K/uL MPV (7.2-11.7) fl Neut % (Auto) (50.0-75.0) % Lymph % (Auto) (20.0-40.0) % [place] % (Auto) (0.0-10.0) % Eos % (Auto) (0.0-4.0) % Baso % (Auto) (0.0-2.0) % Neut # (Auto) (1.8-7.0) K/uL Lymph # (Auto) (1.0-4.3) K/uL Jess[place] # (Auto) (0.0-0.8) K/uL Eos # (Auto) (0.0-0.7) K/uL Baso # (Auto) (0.0-0.2) K/uL pCO2 (35-45) mm/Hg pO2 (80-100) mm/Hg HCO3 (21-28) mmol/L ABG pH (7.35-7.45) ABG Total CO2 (22-28) mmol/L ABG O2 Saturation (95-98) % ABG O2 Content (15-23) ML/dL ABG Base Excess (-2.0-3.0) mmol/L ABG Hemoglobin (11.7-17.4) g/dL ABG Carboxyhemoglobin (0.5-1.5) % POC ABG HHb (Measured) (0.0-5.0) % ABG Methemoglobin (0.0-3.0) % ABG O2 Capacity (16-24) mL/dL Masoud Test A-a O2 Difference mm/Hg Hgb O2 Saturation (95.0-98.0) % Vent Mode Mechanical Rate FiO2 % Tidal Volume PEEP Pressure Support Sodium (132-148) mmol/l Potassium (3.6-5.0) MMOL/L Chloride (98-107) mmol/L Carbon Dioxide (22-30) mmol/L Anion Gap (10-20) BUN (7-17) mg/dl Creatinine (0.7-1.2) mg/dl Est GFR ( Amer) Est GFR (Non-Af Amer) POC Glucose (mg/dL) 216 H (65-110) mg/dL Random Glucose (65-105) mg/dL Calcium (8.4-10.2) mg/dL Troponin I 0.5070 H* (0.00-0.120) ng/mL Laboratory Results - last 24 hr 08/29/18 08/29/18 08/29/18 11:30 12:35 16:58 WBC RBC Hgb Hct MCV MCH MCHC RDW Plt Count MPV Neut % (Auto) Lymph % (Auto) Jess[place] % (Auto) Eos % (Auto) Baso % (Auto) Neut # (Auto) Lymph # (Auto) Jess[place] # (Auto) Eos # (Auto) Baso # (Auto) pCO2 pO2 HCO3 ABG pH ABG Total CO2 ABG O2 Saturation ABG O2 Content ABG Base Excess ABG Hemoglobin ABG Carboxyhemoglobin POC ABG HHb (Measured) ABG Methemoglobin ABG O2 Capacity Masoud Test A-a O2 Difference Hgb O2 Saturation Vent Mode Mechanical Rate FiO2 Tidal Volume PEEP Pressure Support Sodium Potassium Chloride Carbon Dioxide Anion Gap BUN Creatinine Est GFR ( Amer) Est GFR (Non-Af Amer) POC Glucose (mg/dL) 216 H 245 H Random Glucose Calcium Troponin I 0.5070 H* 08/29/18 08/30/18 08/30/18 21:33 04:47 05:00 WBC 20.0 H RBC 2.99 L Hgb 9.0 L Hct 27.5 L MCV 91.9 MCH 30.0 MCHC 32.6 L RDW 14.8 H Plt Count 318 MPV 9.7 Neut % (Auto) 89.0 H Lymph % (Auto) 3.8 L [place] % (Auto) 6.2 Eos % (Auto) 0.7 Baso % (Auto) 0.3 Neut # (Auto) 17.8 H Lymph # (Auto) 0.8 L [place] # (Auto) 1.2 H Eos # (Auto) 0.1 Baso # (Auto) 0.1 pCO2 36 pO2 81 HCO3 21.8 ABG pH 7.37 ABG Total CO2 21.9 L ABG O2 Saturation 97.9 ABG O2 Content 15.5 ABG Base Excess -4.0 L ABG Hemoglobin 11.5 L ABG Carboxyhemoglobin 1.3 POC ABG HHb (Measured) 2.0 ABG Methemoglobin 1.3 ABG O2 Capacity 15.8 L Masoud Test Yes A-a O2 Difference 159.0 Hgb O2 Saturation 95.3 Vent Mode Simv Mechanical Rate 8 FiO2 40.0 Tidal Volume 400 PEEP 5 Pressure Support 10 Sodium Potassium Chloride Carbon Dioxide Anion Gap BUN Creatinine Est GFR ( Amer) Est GFR (Non-Af Amer) POC Glucose (mg/dL) 237 H Random Glucose Calcium Troponin I 08/30/18 08/30/18 05:00 05:51 WBC RBC Hgb Hct MCV MCH MCHC RDW Plt Count MPV Neut % (Auto) Lymph % (Auto) [place] % (Auto) Eos % (Auto) Baso % (Auto) Neut # (Auto) Lymph # (Auto) Jess[place] # (Auto) Eos # (Auto) Baso # (Auto) pCO2 pO2 HCO3 ABG pH ABG Total CO2 ABG O2 Saturation ABG O2 Content ABG Base Excess ABG Hemoglobin ABG Carboxyhemoglobin POC ABG HHb (Measured) ABG Methemoglobin ABG O2 Capacity Masoud Test A-a O2 Difference Hgb O2 Saturation Vent Mode Mechanical Rate FiO2 Tidal Volume PEEP Pressure Support Sodium 141 Potassium 3.6 Chloride 112 H Carbon Dioxide 21 L Anion Gap 12 BUN 39 H Creatinine 1.4 H Est GFR ( Amer) 44 Est GFR (Non-Af Amer) 37 POC Glucose (mg/dL) 314 H Random Glucose 297 H Calcium 8.1 L Troponin I Fingerstick Blood Sugar Results: 314 <Mandeep Dixon V - Last Filed: 08/30/18 13:52> CCU Subjective - Physician Review Events Since Last Encounter (Free Text): 08/30/18 13:49 patient is seen and examined at bedside with resident. case discussed in in ICU rounds. off sedation, on CPAP. tolerating well. Patient is awake but not interactive. Monitor spontaneous breathing trial. extubate if tolerated well, and adequate ABG. CCU Objective - Vital Signs / Intake & Output Vital Signs (Last 4 hours): Vital Signs Temp Pulse Resp BP Pulse Ox 08/30/18 12:00 98.8 F 68 17 113/78 96 08/30/18 11:00 65 25 H 129/53 L 95 08/30/18 10:00 71 23 139/54 L 100 Intake and Output (Last 8hrs): Intake & Output 1208/30/18 08/30/18 22:59 06:59 14:59 Intake Total 1500 1000 1325 Output Total 700 1000 5 Balance 800 0 1320 Weight 175 lb 6.4 oz Intake: IV 100 15 Intake, Piggyback 400 Oral 100 Tube Feeding 800 300 250 Free Water Flush 600 600 660 Output: Urine 700 1000 5 Urethral (Jin) 700 1000 5 Other: # Bowel Movements 1 - Medications Active Medications: Active Medications Generic Name Dose Route Start Last Admin Trade Name Freq PRN Reason Stop Dose Admin Acetaminophen 650 mg 08/24/18 10:29 08/25/18 01:06 Tylenol 650mg/20.3ml Solution Ud NG 650 mg Q6 PRN Administration Temperature Amlodipine Besylate 5 mg 08/22/18 21:00 08/30/18 09:42 Norvasc PO 5 mg Q12 CARMEN Administration Aspirin 81 mg 08/21/18 09:00 08/30/18 09:39 Aspirin Chewable PO 81 mg DAILY CARMEN Administration Enoxaparin Sodium 80 mg 08/29/18 21:00 08/30/18 09:41 Lovenox SC 80 mg Q12 CARMEN Administration Protocol Hydralazine HCl 50 mg 08/25/18 16:00 08/30/18 09:38 Apresoline GT 50 mg Q6 CARMEN Administration Meropenem 500 mg/ Sodium 100 mls @ 100 mls/hr 08/24/18 12:30 08/30/18 08:13 Chloride IVPB 100 mls/hr Q8 CARMEN Administration Protocol Linezolid 600 mg in 300 mls @ 300 mls/hr 08/27/18 13:35 08/30/18 09:43 Zyvox 600mg/300ml D5w IVPB 300 mls/hr Q12 CARMEN Administration Protocol Insulin Detemir 12 units 08/26/18 14:00 08/30/18 09:39 Levemir SC 12 unit DAILY CARMEN Administration Insulin Human Lispro 0 units 08/13/18 11:30 08/30/18 12:16 Humalog SC 4 u ACHS CARMEN Administration Protocol Meclizine HCl 12.5 mg 08/13/18 09:00 08/18/18 09:27 Antivert PO 12.5 mg DAILY CARMEN Administration Metformin HCl 1,000 mg 08/13/18 09:00 08/16/18 09:34 Glucophage PO Not Given BID CARMEN Metoprolol Tartrate 50 mg 08/29/18 17:00 08/30/18 09:41 Lopressor PO 50 mg Q8 CARMEN Administration Pantoprazole Sodium 40 mg 08/27/18 10:00 08/30/18 09:42 Protonix Susp NG 40 mg DAILY CARMEN Administration Sucralfate 1 gm 08/14/18 20:30 08/18/18 22:07 Carafate Oral Susp PO 1 gm ACHS CARMEN Administration - Patient Studies Lab Studies: Microbiology Studies 08/26/18 04:55 Blood Culture - Preliminary Blood-Venous NO GROWTH AFTER 4 DAYS 08/26/18 04:50 Blood Culture - Preliminary Blood-Venous NO GROWTH AFTER 4 DAYS 08/24/18 12:30 Blood Culture - Final Blood-Venous NO GROWTH AFTER 5 DAYS Gram Stain - Final TEST NOT PERFORMED Lab Studies 08/30/18 08/30/18 08/30/18 Range/Units 12:30 12:07 05:51 WBC (4.8-10.8) K/uL RBC (3.80-5.20) Mil/uL Hgb (12.0-16.0) g/dL Hct (34.0-47.0) % MCV (81.0-99.0) fl MCH (27.0-31.0) pg MCHC (33.0-37.0) g/dL RDW (11.5-14.5) % Plt Count (130-400) K/uL MPV (7.2-11.7) fl Neut % (Auto) (50.0-75.0) % Lymph % (Auto) (20.0-40.0) % [place] % (Auto) (0.0-10.0) % Eos % (Auto) (0.0-4.0) % Baso % (Auto) (0.0-2.0) % Neut # (Auto) (1.8-7.0) K/uL Lymph # (Auto) (1.0-4.3) K/uL [place] # (Auto) (0.0-0.8) K/uL Eos # (Auto) (0.0-0.7) K/uL Baso # (Auto) (0.0-0.2) K/uL Neutrophils % (Manual) (42-75) % Lymphocytes % (Manual) (20-50) % Monocytes % (Manual) (0-10) % Toxic Granulation Platelet Estimate (NORMAL) Hypochromasia (manual) Anisocytosis (manual) pCO2 (35-45) mm/Hg pO2 (80-100) mm/Hg HCO3 (21-28) mmol/L ABG pH (7.35-7.45) ABG Total CO2 (22-28) mmol/L ABG O2 Saturation (95-98) % ABG O2 Content (15-23) ML/dL ABG Base Excess (-2.0-3.0) mmol/L ABG Hemoglobin (11.7-17.4) g/dL ABG Carboxyhemoglobin (0.5-1.5) % POC ABG HHb (Measured) (0.0-5.0) % ABG Methemoglobin (0.0-3.0) % ABG O2 Capacity (16-24) mL/dL Masoud Test A-a O2 Difference mm/Hg Hgb O2 Saturation (95.0-98.0) % Vent Mode Mechanical Rate FiO2 % Tidal Volume PEEP Pressure Support Sodium (132-148) mmol/l Potassium (3.6-5.0) MMOL/L Chloride (98-107) mmol/L Carbon Dioxide (22-30) mmol/L Anion Gap (10-20) BUN (7-17) mg/dl Creatinine (0.7-1.2) mg/dl Est GFR ( Amer) Est GFR (Non-Af Amer) POC Glucose (mg/dL) 329 H 314 H (65-110) mg/dL Random Glucose (65-105) mg/dL Calcium (8.4-10.2) mg/dL Troponin I 0.3740 H* (0.00-0.120) ng/mL 08/30/18 08/30/18 08/30/18 Range/Units 05:00 05:00 04:47 WBC 20.0 H (4.8-10.8) K/uL RBC 2.99 L (3.80-5.20) Mil/uL Hgb 9.0 L (12.0-16.0) g/dL Hct 27.5 L (34.0-47.0) % MCV 91.9 (81.0-99.0) fl MCH 30.0 (27.0-31.0) pg MCHC 32.6 L (33.0-37.0) g/dL RDW 14.8 H (11.5-14.5) % Plt Count 318 (130-400) K/uL MPV 9.7 (7.2-11.7) fl Neut % (Auto) 89.0 H (50.0-75.0) % Lymph % (Auto) 3.8 L (20.0-40.0) % [place] % (Auto) 6.2 (0.0-10.0) % Eos % (Auto) 0.7 (0.0-4.0) % Baso % (Auto) 0.3 (0.0-2.0) % Neut # (Auto) 17.8 H (1.8-7.0) K/uL Lymph # (Auto) 0.8 L (1.0-4.3) K/uL [place] # (Auto) 1.2 H (0.0-0.8) K/uL Eos # (Auto) 0.1 (0.0-0.7) K/uL Baso # (Auto) 0.1 (0.0-0.2) K/uL Neutrophils % (Manual) 90 H (42-75) % Lymphocytes % (Manual) 3 L (20-50) % Monocytes % (Manual) 7 (0-10) % Toxic Granulation Present Platelet Estimate Normal (NORMAL) Hypochromasia (manual) Slight Anisocytosis (manual) Slight pCO2 36 (35-45) mm/Hg pO2 81 (80-100) mm/Hg HCO3 21.8 (21-28) mmol/L ABG pH 7.37 (7.35-7.45) ABG Total CO2 21.9 L (22-28) mmol/L ABG O2 Saturation 97.9 (95-98) % ABG O2 Content 15.5 (15-23) ML/dL ABG Base Excess -4.0 L (-2.0-3.0) mmol/L ABG Hemoglobin 11.5 L (11.7-17.4) g/dL ABG Carboxyhemoglobin 1.3 (0.5-1.5) % POC ABG HHb (Measured) 2.0 (0.0-5.0) % ABG Methemoglobin 1.3 (0.0-3.0) % ABG O2 Capacity 15.8 L (16-24) mL/dL Masoud Test Yes A-a O2 Difference 159.0 mm/Hg Hgb O2 Saturation 95.3 (95.0-98.0) % Vent Mode Simv Mechanical Rate 8 FiO2 40.0 % Tidal Volume 400 PEEP 5 Pressure Support 10 Sodium 141 (132-148) mmol/l Potassium 3.6 (3.6-5.0) MMOL/L Chloride 112 H (98-107) mmol/L Carbon Dioxide 21 L (22-30) mmol/L Anion Gap 12 (10-20) BUN 39 H (7-17) mg/dl Creatinine 1.4 H (0.7-1.2) mg/dl Est GFR ( Amer) 44 Est GFR (Non-Af Amer) 37 POC Glucose (mg/dL) (65-110) mg/dL Random Glucose 297 H (65-105) mg/dL Calcium 8.1 L (8.4-10.2) mg/dL Troponin I (0.00-0.120) ng/mL 08/29/18 08/29/18 Range/Units 21:33 16:58 WBC (4.8-10.8) K/uL RBC (3.80-5.20) Mil/uL Hgb (12.0-16.0) g/dL Hct (34.0-47.0) % MCV (81.0-99.0) fl MCH (27.0-31.0) pg MCHC (33.0-37.0) g/dL RDW (11.5-14.5) % Plt Count (130-400) K/uL MPV (7.2-11.7) fl Neut % (Auto) (50.0-75.0) % Lymph % (Auto) (20.0-40.0) % [place] % (Auto) (0.0-10.0) % Eos % (Auto) (0.0-4.0) % Baso % (Auto) (0.0-2.0) % Neut # (Auto) (1.8-7.0) K/uL Lymph # (Auto) (1.0-4.3) K/uL [place] # (Auto) (0.0-0.8) K/uL Eos # (Auto) (0.0-0.7) K/uL Baso # (Auto) (0.0-0.2) K/uL Neutrophils % (Manual) (42-75) % Lymphocytes % (Manual) (20-50) % Monocytes % (Manual) (0-10) % Toxic Granulation Platelet Estimate (NORMAL) Hypochromasia (manual) Anisocytosis (manual) pCO2 (35-45) mm/Hg pO2 (80-100) mm/Hg HCO3 (21-28) mmol/L ABG pH (7.35-7.45) ABG Total CO2 (22-28) mmol/L ABG O2 Saturation (95-98) % ABG O2 Content (15-23) ML/dL ABG Base Excess (-2.0-3.0) mmol/L ABG Hemoglobin (11.7-17.4) g/dL ABG Carboxyhemoglobin (0.5-1.5) % POC ABG HHb (Measured) (0.0-5.0) % ABG Methemoglobin (0.0-3.0) % ABG O2 Capacity (16-24) mL/dL Masoud Test A-a O2 Difference mm/Hg Hgb O2 Saturation (95.0-98.0) % Vent Mode Mechanical Rate FiO2 % Tidal Volume PEEP Pressure Support Sodium (132-148) mmol/l Potassium (3.6-5.0) MMOL/L Chloride (98-107) mmol/L Carbon Dioxide (22-30) mmol/L Anion Gap (10-20) BUN (7-17) mg/dl Creatinine (0.7-1.2) mg/dl Est GFR ( Amer) Est GFR (Non-Af Amer) POC Glucose (mg/dL) 237 H 245 H (65-110) mg/dL Random Glucose (65-105) mg/dL Calcium (8.4-10.2) mg/dL Troponin I (0.00-0.120) ng/mL Laboratory Results - last 24 hr 08/29/18 08/29/18 08/30/18 16:58 21:33 04:47 WBC RBC Hgb Hct MCV MCH MCHC RDW Plt Count MPV Neut % (Auto) Lymph % (Auto) Jessamine % (Auto) Eos % (Auto) Baso % (Auto) Neut # (Auto) Lymph # (Auto) Jess[place] # (Auto) Eos # (Auto) Baso # (Auto) Neutrophils % (Manual) Lymphocytes % (Manual) Monocytes % (Manual) Toxic Granulation Platelet Estimate Hypochromasia (manual) Anisocytosis (manual) pCO2 36 pO2 81 HCO3 21.8 ABG pH 7.37 ABG Total CO2 21.9 L ABG O2 Saturation 97.9 ABG O2 Content 15.5 ABG Base Excess -4.0 L ABG Hemoglobin 11.5 L ABG Carboxyhemoglobin 1.3 POC ABG HHb (Measured) 2.0 ABG Methemoglobin 1.3 ABG O2 Capacity 15.8 L Masoud Test Yes A-a O2 Difference 159.0 Hgb O2 Saturation 95.3 Vent Mode Simv Mechanical Rate 8 FiO2 40.0 Tidal Volume 400 PEEP 5 Pressure Support 10 Sodium Potassium Chloride Carbon Dioxide Anion Gap BUN Creatinine Est GFR ( Amer) Est GFR (Non-Af Amer) POC Glucose (mg/dL) 245 H 237 H Random Glucose Calcium Troponin I 08/30/18 08/30/18 08/30/18 05:00 05:00 05:51 WBC 20.0 H RBC 2.99 L Hgb 9.0 L Hct 27.5 L MCV 91.9 MCH 30.0 MCHC 32.6 L RDW 14.8 H Plt Count 318 MPV 9.7 Neut % (Auto) 89.0 H Lymph % (Auto) 3.8 L [place] % (Auto) 6.2 Eos % (Auto) 0.7 Baso % (Auto) 0.3 Neut # (Auto) 17.8 H Lymph # (Auto) 0.8 L [place] # (Auto) 1.2 H Eos # (Auto) 0.1 Baso # (Auto) 0.1 Neutrophils % (Manual) 90 H Lymphocytes % (Manual) 3 L Monocytes % (Manual) 7 Toxic Granulation Present Platelet Estimate Normal Hypochromasia (manual) Slight Anisocytosis (manual) Slight pCO2 pO2 HCO3 ABG pH ABG Total CO2 ABG O2 Saturation ABG O2 Content ABG Base Excess ABG Hemoglobin ABG Carboxyhemoglobin POC ABG HHb (Measured) ABG Methemoglobin ABG O2 Capacity Masoud Test A-a O2 Difference Hgb O2 Saturation Vent Mode Mechanical Rate FiO2 Tidal Volume PEEP Pressure Support Sodium 141 Potassium 3.6 Chloride 112 H Carbon Dioxide 21 L Anion Gap 12 BUN 39 H Creatinine 1.4 H Est GFR ( Amer) 44 Est GFR (Non-Af Amer) 37 POC Glucose (mg/dL) 314 H Random Glucose 297 H Calcium 8.1 L Troponin I 08/30/18 08/30/18 12:07 12:30 WBC RBC Hgb Hct MCV MCH MCHC RDW Plt Count MPV Neut % (Auto) Lymph % (Auto) [place] % (Auto) Eos % (Auto) Baso % (Auto) Neut # (Auto) Lymph # (Auto) [place] # (Auto) Eos # (Auto) Baso # (Auto) Neutrophils % (Manual) Lymphocytes % (Manual) Monocytes % (Manual) Toxic Granulation Platelet Estimate Hypochromasia (manual) Anisocytosis (manual) pCO2 pO2 HCO3 ABG pH ABG Total CO2 ABG O2 Saturation ABG O2 Content ABG Base Excess ABG Hemoglobin ABG Carboxyhemoglobin POC ABG HHb (Measured) ABG Methemoglobin ABG O2 Capacity Masoud Test A-a O2 Difference Hgb O2 Saturation Vent Mode Mechanical Rate FiO2 Tidal Volume PEEP Pressure Support Sodium Potassium Chloride Carbon Dioxide Anion Gap BUN Creatinine Est GFR ( Amer) Est GFR (Non-Af Amer) POC Glucose (mg/dL) 329 H Random Glucose Calcium Troponin I 0.3740 H*
[2018-08-30 11:21] LABS: LYMPHOCYTE 3 % (20-50); MONOCYTE 7 % (0-10); NEUTROPHIL 90 % (42-75); TOTAL CELLS COUNTED 100
[2018-08-30 11:23] LABS: ANISOCYTOSIS SLIGHT; HYPOCHROMIC SLIGHT; PLATELET ESTIMATE NORMAL (NORMAL); TOXIC GRANULATION PRESENT
--- NOTE | 2018-08-30 12:04 | CP.PCM.PN ---
Subjective - Date & Time of Evaluation Date of Evaluation: 08/30/18 Time of Evaluation: 12:02 - Subjective Subjective: Neurology Consultation Follow-Up Note: Mrs. Saldana was evaluated this morning in the ICU. She was originally admitted to [facility] for GI symptoms, and later during her hospitalization she was admitted to the ICU status post cardiac arrest. At that time she was found to have subacute stroke on CT Head after AMS. She is still in ICU and remains intubated. Sedation turned off prior to my exam as the pt is being weaned off vent per nursing. VEEG started yesterday evening. No family at bedside during time of exam. ROS limited due to pt being intubated, however, she is able to follow some simple commands and shake/nod head in response to some questions. She denies headache, dizziness, chest pain, abd pain. No acute overnight events per nursing. Objective - Vital Signs/Intake and Output Vital Signs (last 24 hours): Temp Pulse Resp BP Pulse Ox 99.2 F 65 25 H 129/53 L 95 08/30/18 04:00 08/30/18 11:00 08/30/18 11:00 08/30/18 11:00 08/30/18 11:00 Intake and Output: 08/30/18 08/30/18 06:59 18:59 Intake Total 1500 921 Output Total 1000 5 Balance 500 916 - Medications Medications: Current Medications Acetaminophen (Tylenol 650mg/20.3ml Solution Ud) 650 mg NG Q6 PRN PRN Reason: Temperature Last Admin: 08/25/18 01:06 Dose: 650 mg Amlodipine Besylate (Norvasc) 5 mg PO Q12 [facility] Last Admin: 08/30/18 09:42 Dose: 5 mg Aspirin (Aspirin Chewable) 81 mg PO DAILY [facility] Last Admin: 08/30/18 09:39 Dose: 81 mg Enoxaparin Sodium (Lovenox) 80 mg SC Q12 [facility]; Protocol Last Admin: 08/30/18 09:41 Dose: 80 mg Hydralazine HCl (Apresoline) 50 mg GT Q6 [facility] Last Admin: 08/30/18 09:38 Dose: 50 mg Meropenem 500 mg/ Sodium (Chloride) 100 mls @ 100 mls/hr IVPB Q8 [facility]; Protocol Last Admin: 08/30/18 08:13 Dose: 100 mls/hr Linezolid (Zyvox 600mg/300ml D5w) 600 mg in 300 mls @ 300 mls/hr IVPB Q12 [facility]; Protocol Last Admin: 08/30/18 09:43 Dose: 300 mls/hr Propofol (Diprivan) 1,000 mg in 100 mls @ 2.558 mls/hr IV .Q24H [facility]; Protocol Stop: 08/30/18 12:55 Last Admin: 08/29/18 17:07 Dose: 10 mcg/kg/min, 5.117 mls/hr Insulin Detemir (Levemir) 12 units SC DAILY [facility] Last Admin: 08/30/18 09:39 Dose: 12 unit Insulin Human Lispro (Humalog) 0 units SC [facility]; Protocol Last Admin: 08/30/18 06:30 Dose: 4 u Meclizine HCl (Antivert) 12.5 mg PO DAILY [facility] Last Admin: 08/18/18 09:27 Dose: 12.5 mg Metformin HCl (Glucophage) 1,000 mg PO BID [facility] Last Admin: 08/16/18 09:34 Dose: Not Given Metoprolol Tartrate (Lopressor) 50 mg PO Q8 [facility] Last Admin: 08/30/18 09:41 Dose: 50 mg Pantoprazole Sodium (Protonix Susp) 40 mg NG DAILY [facility] Last Admin: 08/30/18 09:42 Dose: 40 mg Sucralfate (Carafate Oral Susp) 1 gm PO [facility] Last Admin: 08/18/18 22:07 Dose: 1 gm - Labs Labs: 08/30/18 05:00 08/30/18 05:00 PT 13.3 Seconds (9.8-13.1) H 08/25/18 05:00 INR 1.2 08/25/18 05:00 APTT 29.9 Seconds (25.6-37.1) 08/25/18 05:00 - Constitutional Appears: Other (pt appears uncomfortable, is intubated) - Head Exam Head Exam: ATRAUMATIC, NORMAL INSPECTION, NORMOCEPHALIC - Eye Exam Eye Exam: Normal appearance, PERRL Pupil Exam: PERRL - ENT Exam ENT Exam: Mucous Membranes Moist Additional comments: intubated - Neck Exam Neck Exam: Normal Inspection - Respiratory Exam Additional comments: intubated; breathing over the vent but no tachypnea - Extremities Exam Extremities Exam: Pedal Edema (+1 pitting rosalino). absent: Calf Tenderness, Full ROM (weakness to ble and bue; able to move ble and bue slightly upon command but minimal) - Neurological Exam Neurological Exam: Alert, Awake Additional comments: Pt is intubated, nonverbal, sedation off. Awake and alert; able to follow me moving in the room. Shakes/nods head in response to questions/commands. No jerky movement to extremities today. Pt unable to follow commands to test for fine motor Strength to BUE 2/5; director of laboratory operations 3/5; Strength to BLE 2/5; director of laboratory operations 2/5 Able to wiggle toes and fingers upon request - Skin Skin Exam: Normal Color Assessment and Plan (1) CVA (cerebral vascular accident) Assessment & Plan: Imaging: -CT Head (08/27/18): Normal CT of the Head. -CT Head (08/23/18): Interval acute subacute infarct left [employer] distribution. No definite hemorrhage. Local mass effect identified without global mass effect appreciable. Follow-up CT or MRI advised. -CT Head (08/13/18): Age-appropriate age related neuro degenerative findings without acute intracranial changes at this time. -ECHO w/ Bubble: EF 60-65%; No ASD or PFO noted. -Mrs. Whitney remains intubated; she is post-cardiopulmonary resuscitation with likely associated anoxic brain injury. -Spontaneous breathing trial per ICU team. Per nursing staff, ICU team will attempt to wean sedation today. -She was not restless during exam today compared to yesterday. Was able to follow some commands. -VEEG x24 hours ordered yesterday to r/o seizure--prelim results show: This was an abnormal video EEG, monitoring study, due to the presence of: Moderate background slowing, and EEG disorganization. No episodes were capture. No seizures, not in status epilepticus. -We will maintain the VEEG on the pt during sedation wean for the full 24 hours as originally ordered (stop time is set for 2100). -Continue BP control. -Continue ASA and Lovenox per cardio. -Please notify neuro team of any acute changes. -We will continue to follow the patient while she is in the hospital. Case discussed with Dr. Arguelles Status: Acute
--- NOTE | 2018-08-30 12:24 | CP.PCM.PN ---
Subjective - Date & Time of Evaluation Date of Evaluation: 08/30/18 Time of Evaluation: 12:24 - Subjective Subjective: No unusual events reported Vital sign noted Objective - Vital Signs/Intake and Output Vital Signs (last 24 hours): Temp Pulse Resp BP Pulse Ox 99.2 F 65 25 H 129/53 L 95 08/30/18 04:00 08/30/18 11:00 08/30/18 11:00 08/30/18 11:00 08/30/18 11:00 Intake and Output: 08/30/18 08/30/18 06:59 18:59 Intake Total 1500 921 Output Total 1000 5 Balance 500 916 - Medications Medications: Current Medications Acetaminophen (Tylenol 650mg/20.3ml Solution Ud) 650 mg NG Q6 PRN PRN Reason: Temperature Last Admin: 08/25/18 01:06 Dose: 650 mg Amlodipine Besylate (Norvasc) 5 mg PO Q12 [facility] Last Admin: 08/30/18 09:42 Dose: 5 mg Aspirin (Aspirin Chewable) 81 mg PO DAILY [facility] Last Admin: 08/30/18 09:39 Dose: 81 mg Enoxaparin Sodium (Lovenox) 80 mg SC Q12 [facility]; Protocol Last Admin: 08/30/18 09:41 Dose: 80 mg Hydralazine HCl (Apresoline) 50 mg GT Q6 [facility] Last Admin: 08/30/18 09:38 Dose: 50 mg Meropenem 500 mg/ Sodium (Chloride) 100 mls @ 100 mls/hr IVPB Q8 [facility]; Protocol Last Admin: 08/30/18 08:13 Dose: 100 mls/hr Linezolid (Zyvox 600mg/300ml D5w) 600 mg in 300 mls @ 300 mls/hr IVPB Q12 [facility]; Protocol Last Admin: 08/30/18 09:43 Dose: 300 mls/hr Propofol (Diprivan) 1,000 mg in 100 mls @ 2.558 mls/hr IV .Q24H [facility]; Protocol Stop: 08/30/18 12:55 Last Admin: 08/29/18 17:07 Dose: 10 mcg/kg/min, 5.117 mls/hr Insulin Detemir (Levemir) 12 units SC DAILY [facility] Last Admin: 08/30/18 09:39 Dose: 12 unit Insulin Human Lispro (Humalog) 0 units SC [facility]; Protocol Last Admin: 08/30/18 12:16 Dose: 4 u Meclizine HCl (Antivert) 12.5 mg PO DAILY [facility] Last Admin: 08/18/18 09:27 Dose: 12.5 mg Metformin HCl (Glucophage) 1,000 mg PO BID [facility] Last Admin: 08/16/18 09:34 Dose: Not Given Metoprolol Tartrate (Lopressor) 50 mg PO Q8 [facility] Last Admin: 08/30/18 09:41 Dose: 50 mg Pantoprazole Sodium (Protonix Susp) 40 mg NG DAILY [facility] Last Admin: 08/30/18 09:42 Dose: 40 mg Sucralfate (Carafate Oral Susp) 1 gm PO [facility] Last Admin: 08/18/18 22:07 Dose: 1 gm - Labs Labs: 08/30/18 05:00 08/30/18 05:00 PT 13.3 Seconds (9.8-13.1) H 08/25/18 05:00 INR 1.2 08/25/18 05:00 APTT 29.9 Seconds (25.6-37.1) 08/25/18 05:00 - Constitutional Appears: No Acute Distress - Eye Exam Eye Exam: Conjunctival injection - ENT Exam ENT Exam: Mucous Membranes Moist - Neck Exam Neck Exam: absent: Lymphadenopathy - Respiratory Exam Respiratory Exam: Rhonchi. absent: Chest Wall Tenderness - Cardiovascular Exam Cardiovascular Exam: absent: Gallop, JVD, Rubs - GI/Abdominal Exam GI & Abdominal Exam: Soft, Normal Bowel Sounds - Extremities Exam Extremities Exam: absent: Calf Tenderness - Back Exam Back Exam: absent: CVA tenderness (L), CVA tenderness (R) - Neurological Exam Neurological Exam: Altered - Skin Skin Exam: absent: Cyanosis Assessment and Plan (1) [place] (acute kidney injury) Assessment & Plan: acute kidney injury related to multifactorial including sepsis Respiratory failure Sepsis OR hypernatremia,improving and corrected last serum sodium 141 fever leukocytosis hypokalemia corrected 3.6 The plan Treatment of sepsis antibiotics as adjusted per renal failure Respiratory failure management Monitor electrolyte Status: Acute (2) Acute gastroenteritis Status: Resolved (3) Anginal equivalent Status: Acute
[2018-08-30 18:19] LABS: ABG ALLEN TEST YES; ARTERIAL BLOOD GAS HCO3 24.3 mmol/L (21-28); ARTERIAL BLOOD GAS O2 CAPACITY 12.4 mL/dL (16-24); ARTERIAL BLOOD GAS O2 CONTENT 12.3 ML/dL (15-23); ARTERIAL BLOOD GAS O2 SAT 99.3 % (95-98); ARTERIAL BLOOD GAS PCO2 28 mm/Hg (35-45); ARTERIAL BLOOD GAS PO2 91 mm/Hg (80-100); ARTERIAL BLOOD GAS TCO2 22.7 mmol/L (22-28)
--- NOTE | 2018-08-30 18:35 | PCM.PROC ---
Procedures Attestation:: I certify that I have explained the specified Operation(s) or Procedure(s), risks, benefits and reasonable alternatives to the Patient and/or other person responsible. The opportunity was given to ask questions and all questions answered - Extubation Clinical Parameters: Resolution/Stabilization of disease process, Hemodynamically Stable, Spontaneous Respirations, Acceptable Vent Settings (FIO2<50%, PEEP<8, PaO2>75, pH>7.25) Weaning Criteria Met: Yes General Weaning Approaches: Pressure Support Ventilation (PSV) Weaning Patient Condition: Patient has been successfully extubated and assessed Oxygen Therapy: O2 via Venti Mask Patient Tolerated Procedure: Well, No Complications
[2018-08-30] MEDS: Oxycodone/Acetaminophen 5/325 mg Tab PO PRN (23:27)
[2018-08-31] MEDS: Meropenem 500 MG in Sodium Chloride 0.9% 100 ML IVPB SCH ×3 (00:51→17:09)
[2018-08-31 05:28] LABS: ABG ALLEN TEST YES; ARTERIAL BLOOD GAS HCO3 24.3 mmol/L (21-28); ARTERIAL BLOOD GAS HEMOGLOBIN 9.2 g/dL (11.7-17.4); ARTERIAL BLOOD GAS O2 CAPACITY 12.6 mL/dL (16-24); ARTERIAL BLOOD GAS O2 CONTENT 12.3 ML/dL (15-23); ARTERIAL BLOOD GAS O2 SAT 97.3 % (95-98); ARTERIAL BLOOD GAS PCO2 33 mm/Hg (35-45); ARTERIAL BLOOD GAS PH 7.45 (7.35-7.45); ARTERIAL BLOOD GAS PO2 70 mm/Hg (80-100); ARTERIAL BLOOD GAS TCO2 23.9 mmol/L (22-28)
[2018-08-31 06:34] LABS: BASO # 0.1 K/uL (0.0-0.2); BASO % 0.4 % (0.0-2.0); EOS # 0.2 K/uL (0.0-0.7); EOS % 1.3 % (0.0-4.0); HEMOGLOBIN 8.6 g/dL (12.0-16.0); LYMPH % 5.4 % (20.0-40.0); MEAN CELL VOLUME 92.3 fl (81.0-99.0); MEAN CORPUSCULAR HEMOGLOBIN 30.1 pg (27.0-31.0); MEAN CORPUSCULAR HGB CONC 32.6 g/dL (33.0-37.0); MEAN PLATELET VOLUME 9.3 fl (7.2-11.7); MONO # 1.3 K/uL (0.0-0.8); MONO % 7.3 % (0.0-10.0); NEUT % 85.6 % (50.0-75.0); RBC 2.87 Mil/uL (3.80-5.20); RED CELL DISTRIBUTION WIDTH 14.9 % (11.5-14.5); WHITE BLOOD COUNT 17.6 K/uL (4.8-10.8)
[2018-08-31 07:15] LABS: ALB/GLOB RATIO 0.8 (1.0-2.1); ALBUMIN 2.7 g/dL (3.5-5.0); CALCIUM 7.9 mg/dL (8.4-10.2)
[2018-08-31] MEDS: Insulin Lispro (humaLOG) 100 Units/ml Inj SC SCH ×4 (08:04→22:10)
[2018-08-31] MEDS: Enoxaparin 80 mg Syringe SC SCH ×2 (08:51→21:14)
--- NOTE | 2018-08-31 09:00 | CP.CCUPN ---
<Nicole Umana - Last Filed: 08/31/18 13:24> CCU Subjective - Physician Review Subjective (Free Text): This is 73 y/o F admitted to ICU s/p resuscitation from Code Blue/cardiac arrest and intubated. Patient was seen and examined this morning at bedside, patient was extubated yesterday, improved mental status, follows commands, verbally responsive, NAD. S/p VEEG. + BM, good UO, Swallowing w/o any difficulties, reports she is hungry. VS: Afebrile, 154/60, HR 85, Spo2 >98% on NC, RR 23 PE: HEENT: no icterus, no gaze preference, Pupils 3 mm and reactive NECK: No JVD visible, supple, carotids equal upstroke bilat/no bruit CHEST: decreased BS at the bases, no wheezes audible, on NC HEART: regular, distant, S1S2, no rubs ABD: soft and nontender, no tympany, no guarding, no organomegaly, BS +. EXT: mildly swollen Extremities, no calf tenderness or palpable cords, distal pulses intact and symmetrical, left PICC NEURO: no focal motor weakness, alert and awake , follows commands, verbally responsive SKIN: no rashes, warm and dry LABS: WBC: 17.6, improved H/H: 8.6/26.4 Plt 360 ABG reviewed: 7.4.5/33 pco2/pO2 70/HCO3 24.3 CMP: Significant for K+ 3.1, CO2 114, BUN/Cr 34/1.3 improved Imaging: -CT Head (08/27/18): Normal CT of the Head. -CT Head (08/23/18): Interval acute subacute infarct left BUSINESS PROCESS LEAD distribution. No definite hemorrhage. Local mass effect identified without global mass effect appreciable. Follow-up CT or MRI advised. -CT Head (08/13/18): Age-appropriate age related neuro degenerative findings without acute intracranial changes at this time. -ECHO w/ Bubble: EF 60-65%; No ASD or PFO noted. -CXR 08/30: Vague R basilar opacity, Possible new RUL opacity and L pleural effusion, Line and tubes unchanged -CXR 08/31: Prelim: more congested IMPRESSION/MAJOR PROBLEMS: S/p Cardiac Arrest, Acute resp failure Acute/Subacute NSTEMI VRE Bacteremia/Sepsis, Coag neg Staph [place], multifactorial GI symptoms/GB / Biliary Tract disease DVT Anemia CVA DM-II HTN Hypokalemia PLAN: - S/p VEEG: no seizures - Extubated on 08/30: ABG reviewed, Spo2 >98% on NC - Start pt on Lasix 40 BID for pulmonary congestion, monitor Renal function - Patient is alert and awake, full liquid diet, advance as tolerated, keep the bed elevated - Staph coag neg Bacteremia/ VRE, C/w Lisa and Linezolid as per ID - NSTEMI: C/w Lovenox 80mg SC Q12H - Replete K+ as needed, f/u morning labs - Hydralazine was changed 50 Q6h to 100 Q8H for better BP control - C/w Metoprolol 50 Q8H /Norvasc 5mg BID - C/w Insulin Leve 12 U SC daily and Lispro - C/w Protonix Case discussed with ICU attending 08/31/18 11:27 CCU Objective - Vital Signs / Intake & Output Vital Signs (Last 4 hours): Vital Signs Temp Pulse Resp BP Pulse Ox 08/31/18 08:00 99.0 F 83 23 154/60 H 98 08/31/18 06:00 85 22 155/75 H 99 08/31/18 04:42 76 158/68 H Intake and Output (Last 8hrs): Intake & Output 08/30/18 08/31/18 08/31/18 22:59 06:59 14:59 Intake Total 752 225 2 Output Total 550 300 650 Balance 202 -47 -648 Intake: IV 2 0 2 Intake, Piggyback 300 100 Oral 125 Tube Feeding 150 Free Water Flush 300 Output: Urine 550 300 650 Urethral (Jin) 550 300 650 Other: # Bowel Movements 0 - Medications Active Medications: Active Medications Generic Name Dose Route Start Last Admin Trade Name Freq PRN Reason Stop Dose Admin Acetaminophen 650 mg 08/24/18 10:29 08/25/18 01:06 Tylenol 650mg/20.3ml Solution Ud NG 650 mg Q6 PRN Administration Temperature Amlodipine Besylate 5 mg 08/22/18 21:00 08/30/18 21:15 Norvasc PO 5 mg Q12 CARMEN Administration Aspirin 81 mg 08/21/18 09:00 08/30/18 09:39 Aspirin Chewable PO 81 mg DAILY CARMEN Administration Enoxaparin Sodium 80 mg 08/29/18 21:00 08/30/18 21:14 Lovenox SC 80 mg Q12 [facility] Administration Protocol Hydralazine HCl 50 mg 08/30/18 22:00 08/31/18 04:42 Apresoline PO 50 mg Q6 CARMEN Administration Meropenem 500 mg/ Sodium 100 mls @ 100 mls/hr 08/24/18 12:30 08/31/18 08:30 Chloride IVPB 100 mls/hr Q8 CARMEN Administration Protocol Linezolid 600 mg in 300 mls @ 300 mls/hr 08/27/18 13:35 08/30/18 21:14 Zyvox 600mg/300ml D5w IVPB 300 mls/hr Q12 [facility] Administration Protocol Potassium Chloride 100 mls @ 50 mls/hr 08/31/18 08:00 Potassium Chloride 20 Meq/100 Ml IVPB 08/31/18 11:59 Q2 CARMEN Insulin Detemir 12 units 08/26/18 14:00 08/30/18 09:39 Levemir SC 12 unit DAILY [facility] Administration Insulin Human Lispro 0 units 08/13/18 11:30 08/31/18 08:04 Humalog SC Not Given [facility] Protocol Meclizine HCl 12.5 mg 08/13/18 09:00 08/18/18 09:27 Antivert PO 12.5 mg DAILY [facility] Administration Metformin HCl 1,000 mg 08/13/18 09:00 08/16/18 09:34 Glucophage PO Not Given BID [facility] Metoprolol Tartrate 50 mg 08/29/18 17:00 08/31/18 02:40 Lopressor PO 50 mg Q8 CARMEN Administration Oxycodone/Acetaminophen 1 tab 08/30/18 22:26 08/30/18 23:27 Percocet 5/325 Mg Tab PO 09/02/18 22:27 1 tab Q6 PRN Administration Pain, moderate (4-7) Pantoprazole Sodium 40 mg 08/27/18 10:00 08/30/18 09:42 Protonix Susp NG 40 mg DAILY CARMEN Administration Sucralfate 1 gm 08/14/18 20:30 08/18/18 22:07 Carafate Oral Susp PO 1 gm ACHS [facility] Administration - Patient Studies Lab Studies: Microbiology Studies 08/26/18 04:55 Blood Culture - Final Blood-Venous NO GROWTH AFTER 5 DAYS Gram Stain - Final TEST NOT PERFORMED 08/26/18 04:50 Blood Culture - Final Blood-Venous NO GROWTH AFTER 5 DAYS Gram Stain - Final TEST NOT PERFORMED Lab Studies 08/31/18 08/31/18 08/31/18 Range/Units 06:15 06:15 06:00 WBC 17.6 H (4.8-10.8) K/uL RBC 2.87 L (3.80-5.20) Mil/uL Hgb 8.6 L (12.0-16.0) g/dL Hct 26.4 L (34.0-47.0) % MCV 92.3 (81.0-99.0) fl MCH 30.1 (27.0-31.0) pg MCHC 32.6 L (33.0-37.0) g/dL RDW 14.9 H (11.5-14.5) % Plt Count 360 (130-400) K/uL MPV 9.3 (7.2-11.7) fl Neut % (Auto) 85.6 H (50.0-75.0) % Lymph % (Auto) 5.4 L (20.0-40.0) % [place] % (Auto) 7.3 (0.0-10.0) % Eos % (Auto) 1.3 (0.0-4.0) % Baso % (Auto) 0.4 (0.0-2.0) % Neut # (Auto) 15.0 H (1.8-7.0) K/uL Lymph # (Auto) 1.0 (1.0-4.3) K/uL [place] # (Auto) 1.3 H (0.0-0.8) K/uL Eos # (Auto) 0.2 (0.0-0.7) K/uL Baso # (Auto) 0.1 (0.0-0.2) K/uL Neutrophils % (Manual) (42-75) % Lymphocytes % (Manual) (20-50) % Monocytes % (Manual) (0-10) % Toxic Granulation Platelet Estimate (NORMAL) Hypochromasia (manual) Anisocytosis (manual) pCO2 (35-45) mm/Hg pO2 (80-100) mm/Hg HCO3 (21-28) mmol/L ABG pH (7.35-7.45) ABG Total CO2 (22-28) mmol/L ABG O2 Saturation (95-98) % ABG O2 Content (15-23) ML/dL ABG Base Excess (-2.0-3.0) mmol/L ABG Hemoglobin (11.7-17.4) g/dL ABG Carboxyhemoglobin (0.5-1.5) % POC ABG HHb (Measured) (0.0-5.0) % ABG Methemoglobin (0.0-3.0) % ABG O2 Capacity (16-24) mL/dL Masoud Test A-a O2 Difference mm/Hg Hgb O2 Saturation (95.0-98.0) % Vent Mode FiO2 % Pressure Support CPAP Sodium 143 (132-148) mmol/l Potassium 3.1 L (3.6-5.0) MMOL/L Chloride 114 H (98-107) mmol/L Carbon Dioxide 22 (22-30) mmol/L Anion Gap 10 (10-20) BUN 34 H (7-17) mg/dl Creatinine 1.3 H (0.7-1.2) mg/dl Est GFR ( Amer) 48 Est GFR (Non-Af Amer) 40 POC Glucose (mg/dL) 225 H (65-110) mg/dL Random Glucose 228 H (65-105) mg/dL Calcium 7.9 L (8.4-10.2) mg/dL Total Bilirubin 0.7 (0.2-1.3) mg/dl AST 31 (14-36) U/L ALT 47 (9-52) U/L Alkaline Phosphatase 113 (38-126) U/L Troponin I (0.00-0.120) ng/mL Total Protein 5.9 L (6.3-8.2) G/DL Albumin 2.7 L (3.5-5.0) g/dL Globulin 3.3 (2.2-3.9) gm/dL Albumin/Globulin Ratio 0.8 L (1.0-2.1) 08/31/18 08/30/18 08/30/18 Range/Units 04:00 22:12 18:14 WBC (4.8-10.8) K/uL RBC (3.80-5.20) Mil/uL Hgb (12.0-16.0) g/dL Hct (34.0-47.0) % MCV (81.0-99.0) fl MCH (27.0-31.0) pg MCHC (33.0-37.0) g/dL RDW (11.5-14.5) % Plt Count (130-400) K/uL MPV (7.2-11.7) fl Neut % (Auto) (50.0-75.0) % Lymph % (Auto) (20.0-40.0) % [place] % (Auto) (0.0-10.0) % Eos % (Auto) (0.0-4.0) % Baso % (Auto) (0.0-2.0) % Neut # (Auto) (1.8-7.0) K/uL Lymph # (Auto) (1.0-4.3) K/uL [place] # (Auto) (0.0-0.8) K/uL Eos # (Auto) (0.0-0.7) K/uL Baso # (Auto) (0.0-0.2) K/uL Neutrophils % (Manual) (42-75) % Lymphocytes % (Manual) (20-50) % Monocytes % (Manual) (0-10) % Toxic Granulation Platelet Estimate (NORMAL) Hypochromasia (manual) Anisocytosis (manual) pCO2 33 L 28 L (35-45) mm/Hg pO2 70 L 91 (80-100) mm/Hg HCO3 24.3 24.3 (21-28) mmol/L ABG pH 7.45 7.50 H (7.35-7.45) ABG Total CO2 23.9 22.7 (22-28) mmol/L ABG O2 Saturation 97.3 99.3 H (95-98) % ABG O2 Content 12.3 L 12.3 L (15-23) ML/dL ABG Base Excess -0.7 -0.8 (-2.0-3.0) mmol/L ABG Hemoglobin 9.2 L 9.0 L (11.7-17.4) g/dL ABG Carboxyhemoglobin 1.8 H 1.4 (0.5-1.5) % POC ABG HHb (Measured) 2.6 0.7 (0.0-5.0) % ABG Methemoglobin 1.3 1.7 (0.0-3.0) % ABG O2 Capacity 12.6 L 12.4 L (16-24) mL/dL Masoud Test Yes Yes A-a O2 Difference 117.0 159.0 mm/Hg Hgb O2 Saturation 94.3 L 96.2 (95.0-98.0) % Vent Mode Cpap FiO2 32.0 40.0 % Pressure Support 8 CPAP 5 Sodium (132-148) mmol/l Potassium (3.6-5.0) MMOL/L Chloride (98-107) mmol/L Carbon Dioxide (22-30) mmol/L Anion Gap (10-20) BUN (7-17) mg/dl Creatinine (0.7-1.2) mg/dl Est GFR ( Amer) Est GFR (Non-Af Amer) POC Glucose (mg/dL) 236 H (65-110) mg/dL Random Glucose (65-105) mg/dL Calcium (8.4-10.2) mg/dL Total Bilirubin (0.2-1.3) mg/dl AST (14-36) U/L ALT (9-52) U/L Alkaline Phosphatase (38-126) U/L Troponin I (0.00-0.120) ng/mL Total Protein (6.3-8.2) G/DL Albumin (3.5-5.0) g/dL Globulin (2.2-3.9) gm/dL Albumin/Globulin Ratio (1.0-2.1) 08/30/18 08/30/18 08/30/18 Range/Units 16:52 12:30 12:07 WBC (4.8-10.8) K/uL RBC (3.80-5.20) Mil/uL Hgb (12.0-16.0) g/dL Hct (34.0-47.0) % MCV (81.0-99.0) fl MCH (27.0-31.0) pg MCHC (33.0-37.0) g/dL RDW (11.5-14.5) % Plt Count (130-400) K/uL MPV (7.2-11.7) fl Neut % (Auto) (50.0-75.0) % Lymph % (Auto) (20.0-40.0) % [place] % (Auto) (0.0-10.0) % Eos % (Auto) (0.0-4.0) % Baso % (Auto) (0.0-2.0) % Neut # (Auto) (1.8-7.0) K/uL Lymph # (Auto) (1.0-4.3) K/uL [place] # (Auto) (0.0-0.8) K/uL Eos # (Auto) (0.0-0.7) K/uL Baso # (Auto) (0.0-0.2) K/uL Neutrophils % (Manual) (42-75) % Lymphocytes % (Manual) (20-50) % Monocytes % (Manual) (0-10) % Toxic Granulation Platelet Estimate (NORMAL) Hypochromasia (manual) Anisocytosis (manual) pCO2 (35-45) mm/Hg pO2 (80-100) mm/Hg HCO3 (21-28) mmol/L ABG pH (7.35-7.45) ABG Total CO2 (22-28) mmol/L ABG O2 Saturation (95-98) % ABG O2 Content (15-23) ML/dL ABG Base Excess (-2.0-3.0) mmol/L ABG Hemoglobin (11.7-17.4) g/dL ABG Carboxyhemoglobin (0.5-1.5) % POC ABG HHb (Measured) (0.0-5.0) % ABG Methemoglobin (0.0-3.0) % ABG O2 Capacity (16-24) mL/dL Masoud Test A-a O2 Difference mm/Hg Hgb O2 Saturation (95.0-98.0) % Vent Mode FiO2 % Pressure Support CPAP Sodium (132-148) mmol/l Potassium (3.6-5.0) MMOL/L Chloride (98-107) mmol/L Carbon Dioxide (22-30) mmol/L Anion Gap (10-20) BUN (7-17) mg/dl Creatinine (0.7-1.2) mg/dl Est GFR ( Amer) Est GFR (Non-Af Amer) POC Glucose (mg/dL) 262 H 329 H (65-110) mg/dL Random Glucose (65-105) mg/dL Calcium (8.4-10.2) mg/dL Total Bilirubin (0.2-1.3) mg/dl AST (14-36) U/L ALT (9-52) U/L Alkaline Phosphatase (38-126) U/L Troponin I 0.3740 H* (0.00-0.120) ng/mL Total Protein (6.3-8.2) G/DL Albumin (3.5-5.0) g/dL Globulin (2.2-3.9) gm/dL Albumin/Globulin Ratio (1.0-2.1) 08/30/18 Range/Units 05:00 WBC (4.8-10.8) K/uL RBC (3.80-5.20) Mil/uL Hgb (12.0-16.0) g/dL Hct (34.0-47.0) % MCV (81.0-99.0) fl MCH (27.0-31.0) pg MCHC (33.0-37.0) g/dL RDW (11.5-14.5) % Plt Count (130-400) K/uL MPV (7.2-11.7) fl Neut % (Auto) (50.0-75.0) % Lymph % (Auto) (20.0-40.0) % [place] % (Auto) (0.0-10.0) % Eos % (Auto) (0.0-4.0) % Baso % (Auto) (0.0-2.0) % Neut # (Auto) (1.8-7.0) K/uL Lymph # (Auto) (1.0-4.3) K/uL [place] # (Auto) (0.0-0.8) K/uL Eos # (Auto) (0.0-0.7) K/uL Baso # (Auto) (0.0-0.2) K/uL Neutrophils % (Manual) 90 H (42-75) % Lymphocytes % (Manual) 3 L (20-50) % Monocytes % (Manual) 7 (0-10) % Toxic Granulation Present Platelet Estimate Normal (NORMAL) Hypochromasia (manual) Slight Anisocytosis (manual) Slight pCO2 (35-45) mm/Hg pO2 (80-100) mm/Hg HCO3 (21-28) mmol/L ABG pH (7.35-7.45) ABG Total CO2 (22-28) mmol/L ABG O2 Saturation (95-98) % ABG O2 Content (15-23) ML/dL ABG Base Excess (-2.0-3.0) mmol/L ABG Hemoglobin (11.7-17.4) g/dL ABG Carboxyhemoglobin (0.5-1.5) % POC ABG HHb (Measured) (0.0-5.0) % ABG Methemoglobin (0.0-3.0) % ABG O2 Capacity (16-24) mL/dL Masoud Test A-a O2 Difference mm/Hg Hgb O2 Saturation (95.0-98.0) % Vent Mode FiO2 % Pressure Support CPAP Sodium (132-148) mmol/l Potassium (3.6-5.0) MMOL/L Chloride (98-107) mmol/L Carbon Dioxide (22-30) mmol/L Anion Gap (10-20) BUN (7-17) mg/dl Creatinine (0.7-1.2) mg/dl Est GFR ( Amer) Est GFR (Non-Af Amer) POC Glucose (mg/dL) (65-110) mg/dL Random Glucose (65-105) mg/dL Calcium (8.4-10.2) mg/dL Total Bilirubin (0.2-1.3) mg/dl AST (14-36) U/L ALT (9-52) U/L Alkaline Phosphatase (38-126) U/L Troponin I (0.00-0.120) ng/mL Total Protein (6.3-8.2) G/DL Albumin (3.5-5.0) g/dL Globulin (2.2-3.9) gm/dL Albumin/Globulin Ratio (1.0-2.1) Laboratory Results - last 24 hr 08/30/18 08/30/18 08/30/18 05:00 12:07 12:30 WBC RBC Hgb Hct MCV MCH MCHC RDW Plt Count MPV Neut % (Auto) Lymph % (Auto) [place] % (Auto) Eos % (Auto) Baso % (Auto) Neut # (Auto) Lymph # (Auto) [place] # (Auto) Eos # (Auto) Baso # (Auto) Neutrophils % (Manual) 90 H Lymphocytes % (Manual) 3 L Monocytes % (Manual) 7 Toxic Granulation Present Platelet Estimate Normal Hypochromasia (manual) Slight Anisocytosis (manual) Slight pCO2 pO2 HCO3 ABG pH ABG Total CO2 ABG O2 Saturation ABG O2 Content ABG Base Excess ABG Hemoglobin ABG Carboxyhemoglobin POC ABG HHb (Measured) ABG Methemoglobin ABG O2 Capacity Masoud Test A-a O2 Difference Hgb O2 Saturation Vent Mode FiO2 Pressure Support CPAP Sodium Potassium Chloride Carbon Dioxide Anion Gap BUN Creatinine Est GFR ( Amer) Est GFR (Non-Af Amer) POC Glucose (mg/dL) 329 H Random Glucose Calcium Total Bilirubin AST ALT Alkaline Phosphatase Troponin I 0.3740 H* Total Protein Albumin Globulin Albumin/Globulin Ratio 08/30/18 08/30/18 08/30/18 16:52 18:14 22:12 WBC RBC Hgb Hct MCV MCH MCHC RDW Plt Count MPV Neut % (Auto) Lymph % (Auto) [place] % (Auto) Eos % (Auto) Baso % (Auto) Neut # (Auto) Lymph # (Auto) [place] # (Auto) Eos # (Auto) Baso # (Auto) Neutrophils % (Manual) Lymphocytes % (Manual) Monocytes % (Manual) Toxic Granulation Platelet Estimate Hypochromasia (manual) Anisocytosis (manual) pCO2 28 L pO2 91 HCO3 24.3 ABG pH 7.50 H ABG Total CO2 22.7 ABG O2 Saturation 99.3 H ABG O2 Content 12.3 L ABG Base Excess -0.8 ABG Hemoglobin 9.0 L ABG Carboxyhemoglobin 1.4 POC ABG HHb (Measured) 0.7 ABG Methemoglobin 1.7 ABG O2 Capacity 12.4 L Masoud Test Yes A-a O2 Difference 159.0 Hgb O2 Saturation 96.2 Vent Mode Cpap FiO2 40.0 Pressure Support 8 CPAP 5 Sodium Potassium Chloride Carbon Dioxide Anion Gap BUN Creatinine Est GFR ( Amer) Est GFR (Non-Af Amer) POC Glucose (mg/dL) 262 H 236 H Random Glucose Calcium Total Bilirubin AST ALT Alkaline Phosphatase Troponin I Total Protein Albumin Globulin Albumin/Globulin Ratio 08/31/18 08/31/18 08/31/18 04:00 06:00 06:15 WBC 17.6 H RBC 2.87 L Hgb 8.6 L Hct 26.4 L MCV 92.3 MCH 30.1 MCHC 32.6 L RDW 14.9 H Plt Count 360 MPV 9.3 Neut % (Auto) 85.6 H Lymph % (Auto) 5.4 L [place] % (Auto) 7.3 Eos % (Auto) 1.3 Baso % (Auto) 0.4 Neut # (Auto) 15.0 H Lymph # (Auto) 1.0 [place] # (Auto) 1.3 H Eos # (Auto) 0.2 Baso # (Auto) 0.1 Neutrophils % (Manual) Lymphocytes % (Manual) Monocytes % (Manual) Toxic Granulation Platelet Estimate Hypochromasia (manual) Anisocytosis (manual) pCO2 33 L pO2 70 L HCO3 24.3 ABG pH 7.45 ABG Total CO2 23.9 ABG O2 Saturation 97.3 ABG O2 Content 12.3 L ABG Base Excess -0.7 ABG Hemoglobin 9.2 L ABG Carboxyhemoglobin 1.8 H POC ABG HHb (Measured) 2.6 ABG Methemoglobin 1.3 ABG O2 Capacity 12.6 L Masoud Test Yes A-a O2 Difference 117.0 Hgb O2 Saturation 94.3 L Vent Mode FiO2 32.0 Pressure Support CPAP Sodium Potassium Chloride Carbon Dioxide Anion Gap BUN Creatinine Est GFR ( Amer) Est GFR (Non-Af Amer) POC Glucose (mg/dL) 225 H Random Glucose Calcium Total Bilirubin AST ALT Alkaline Phosphatase Troponin I Total Protein Albumin Globulin Albumin/Globulin Ratio 08/31/18 06:15 WBC RBC Hgb Hct MCV MCH MCHC RDW Plt Count MPV Neut % (Auto) Lymph % (Auto) [place] % (Auto) Eos % (Auto) Baso % (Auto) Neut # (Auto) Lymph # (Auto) [place] # (Auto) Eos # (Auto) Baso # (Auto) Neutrophils % (Manual) Lymphocytes % (Manual) Monocytes % (Manual) Toxic Granulation Platelet Estimate Hypochromasia (manual) Anisocytosis (manual) pCO2 pO2 HCO3 ABG pH ABG Total CO2 ABG O2 Saturation ABG O2 Content ABG Base Excess ABG Hemoglobin ABG Carboxyhemoglobin POC ABG HHb (Measured) ABG Methemoglobin ABG O2 Capacity Masoud Test A-a O2 Difference Hgb O2 Saturation Vent Mode FiO2 Pressure Support CPAP Sodium 143 Potassium 3.1 L Chloride 114 H Carbon Dioxide 22 Anion Gap 10 BUN 34 H Creatinine 1.3 H Est GFR ( Amer) 48 Est GFR (Non-Af Amer) 40 POC Glucose (mg/dL) Random Glucose 228 H Calcium 7.9 L Total Bilirubin 0.7 AST 31 ALT 47 Alkaline Phosphatase 113 Troponin I Total Protein 5.9 L Albumin 2.7 L Globulin 3.3 Albumin/Globulin Ratio 0.8 L Fingerstick Blood Sugar Results: 225 <Morgan Melendez - Last Filed: 08/31/18 18:14> CCU Subjective - Physician Review Subjective (Free Text): Attestation: Patient seen and examined at the bedside with Resident Dr. Jud Umana; and I agree with his outline of plans and management documented above and below, reflecting my review of all applicable clinical data, and participation in the care of the patient throughout the day in ICU; today, August 31, 2018.
[2018-08-31] MEDS: Pantoprazole 40 mg Susp UD NG SCH (09:30)
[2018-08-31] MEDS: Insulin Detemir 100 Units/ml Inj SC SCH (09:32)
[2018-08-31] MEDS: Linezolid 600 mg in D5W 300 ml 600 MG/300 ML BAG IVPB SCH ×2 (09:40→20:11)
[2018-08-31] MEDS: Potassium Chloride 20 mEq 100 ML IVPB SCH ×2 (09:41→11:48)
[2018-08-31] MEDS: Oxycodone/Acetaminophen 5/325 mg Tab PO PRN (12:14)
--- NOTE | 2018-08-31 12:49 | CP.PCM.PN ---
Subjective - Date & Time of Evaluation Date of Evaluation: 08/31/18 Time of Evaluation: 12:49 - Subjective Subjective: Neurology Consultation Follow-Up Note: Mrs. Whitney was evaluated this afternoon in the ICU. She is now extubated and seems to be tolerating well. She was able to follow some commands today. ROS limited as pt was nonverbal during my time with her, although, per nursing she was able to speak short sentences this morning. Answered my questions by shaking and nodding head. Admits to sore throat, which I explained was expected as she was just extubated. Denies h/a, dizziness, visual changes, chest pain, sob, n/v/d. No acute overnight events per nursing. Objective - Vital Signs/Intake and Output Vital Signs (last 24 hours): Temp Pulse Resp BP Pulse Ox 99.0 F 79 23 155/74 H 98 08/31/18 08:00 08/31/18 12:19 08/31/18 08:00 08/31/18 12:19 08/31/18 08:00 Intake and Output: 08/31/18 08/31/18 06:59 18:59 Intake Total 525 2 Output Total 350 650 Balance 175 -648 - Medications Medications: Current Medications Acetaminophen (Tylenol 650mg/20.3ml Solution Ud) 650 mg NG Q6 PRN PRN Reason: Temperature Last Admin: 08/25/18 01:06 Dose: 650 mg Amlodipine Besylate (Norvasc) 5 mg PO Q12 CARMEN Last Admin: 08/31/18 09:37 Dose: 5 mg Aspirin (Aspirin Chewable) 81 mg PO DAILY [facility] Last Admin: 08/31/18 09:37 Dose: 81 mg Enoxaparin Sodium (Lovenox) 80 mg SC Q12 [facility]; Protocol Last Admin: 08/31/18 08:51 Dose: 80 mg Furosemide (Lasix) 40 mg IV Q12 CARMEN Last Admin: 08/31/18 11:01 Dose: 40 mg Hydralazine HCl (Apresoline) 100 mg PO Q8 CARMEN Last Admin: 08/31/18 12:19 Dose: Not Given Meropenem 500 mg/ Sodium (Chloride) 100 mls @ 100 mls/hr IVPB Q8 [facility]; Protocol Last Admin: 08/31/18 08:30 Dose: 100 mls/hr Linezolid (Zyvox 600mg/300ml D5w) 600 mg in 300 mls @ 300 mls/hr IVPB Q12 [facility]; Protocol Last Admin: 08/31/18 09:40 Dose: 300 mls/hr Insulin Detemir (Levemir) 12 units SC DAILY [facility] Last Admin: 08/31/18 09:32 Dose: 12 unit Insulin Human Lispro (Humalog) 0 units SC [facility]; Protocol Last Admin: 08/31/18 12:30 Dose: 3 u Meclizine HCl (Antivert) 12.5 mg PO DAILY [facility] Last Admin: 08/18/18 09:27 Dose: 12.5 mg Metformin HCl (Glucophage) 1,000 mg PO BID [facility] Last Admin: 08/16/18 09:34 Dose: Not Given Metoprolol Tartrate (Lopressor) 50 mg PO Q8 [facility] Last Admin: 08/31/18 09:37 Dose: 50 mg Oxycodone/Acetaminophen (Percocet 5/325 Mg Tab) 1 tab PO Q6 PRN PRN Reason: Pain, moderate (4-7) Stop: 09/02/18 22:27 Last Admin: 08/31/18 12:14 Dose: 1 tab Pantoprazole Sodium (Protonix Susp) 40 mg NG DAILY [facility] Last Admin: 08/31/18 09:30 Dose: 40 mg Sucralfate (Carafate Oral Susp) 1 gm PO [facility] Last Admin: 08/18/18 22:07 Dose: 1 gm - Labs Labs: 08/31/18 06:15 08/31/18 06:15 PT 13.3 Seconds (9.8-13.1) H 08/25/18 05:00 INR 1.2 08/25/18 05:00 APTT 29.9 Seconds (25.6-37.1) 08/25/18 05:00 - Constitutional Appears: Well, No Acute Distress - Head Exam Head Exam: ATRAUMATIC, NORMAL INSPECTION, NORMOCEPHALIC - Eye Exam Eye Exam: PERRL Pupil Exam: PERRL - ENT Exam ENT Exam: Mucous Membranes Moist - Neck Exam Neck Exam: Normal Inspection - Respiratory Exam Respiratory Exam: NORMAL BREATHING PATTERN (sp extubation) - Extremities Exam Extremities Exam: Pedal Edema (+1 b/l pitting). absent: Calf Tenderness, Full ROM (weakness to bue and ble; able to move bue more than ble upon command) - Neurological Exam Neurological Exam: Alert, Awake Additional comments: Pt extubated; nonverbal during my rounds. Able to follow some commands. Shakes/nods head in response to questions. No jerky movements observed today. Strength to BUE 2/5 with patient account liaison of 3/5 Strength to BLE 2/5. Dorsiflexion b/l 2/5 Able to move toes and fingers when asked to - Skin Skin Exam: Normal Color Assessment and Plan (1) CVA (cerebral vascular accident) Assessment & Plan: Imaging: -CT Head (08/27/18): Normal CT of the Head. -CT Head (08/23/18): Interval acute subacute infarct left [employer] distribution. No definite hemorrhage. Local mass effect identified without global mass effect appreciable. Follow-up CT or MRI advised. -CT Head (08/13/18): Age-appropriate age related neuro degenerative findings without acute intracranial changes at this time. -ECHO w/ Bubble: EF 60-65%; No ASD or PFO noted. -Mrs. Whitney is improving; she has been extubated and is tolerating well. She was able to follow some commands during exam. -VEEG x24 hours ordered earlier this week to r/o seizure--prelim results show: This was an abnormal video EEG, monitoring study, due to the presence of: Moderate background slowing, and EEG disorganization. No episodes were capture. No seizures, not in status epilepticus. Will follow up for any further results of the VEEG. -Continue BP control. -Continue ASA and Lovenox per cardio. -Please notify neuro team of any acute changes. -We will continue to follow the patient while she is in the hospital. Case discussed with Dr. Arguelles Status: Acute
--- NOTE | 2018-08-31 12:54 | CP.PCM.PN ---
Subjective - Date & Time of Evaluation Date of Evaluation: 08/31/18 Time of Evaluation: 13:03 - Subjective Subjective: patient extubated Receiving oxygen by mask And responding Vital sign noted to be stable Objective - Vital Signs/Intake and Output Vital Signs (last 24 hours): Temp Pulse Resp BP Pulse Ox 99.0 F 79 23 155/74 H 98 08/31/18 08:00 08/31/18 12:19 08/31/18 08:00 08/31/18 12:19 08/31/18 08:00 Intake and Output: 08/31/18 08/31/18 06:59 18:59 Intake Total 525 2 Output Total 350 650 Balance 175 -648 - Medications Medications: Current Medications Acetaminophen (Tylenol 650mg/20.3ml Solution Ud) 650 mg NG Q6 PRN PRN Reason: Temperature Last Admin: 08/25/18 01:06 Dose: 650 mg Amlodipine Besylate (Norvasc) 5 mg PO Q12 [facility] Last Admin: 08/31/18 09:37 Dose: 5 mg Aspirin (Aspirin Chewable) 81 mg PO DAILY [facility] Last Admin: 08/31/18 09:37 Dose: 81 mg Enoxaparin Sodium (Lovenox) 80 mg SC Q12 [facility]; Protocol Last Admin: 08/31/18 08:51 Dose: 80 mg Furosemide (Lasix) 40 mg IV Q12 [facility] Last Admin: 08/31/18 11:01 Dose: 40 mg Hydralazine HCl (Apresoline) 100 mg PO Q8 [facility] Last Admin: 08/31/18 12:19 Dose: Not Given Meropenem 500 mg/ Sodium (Chloride) 100 mls @ 100 mls/hr IVPB Q8 [facility]; Protocol Last Admin: 08/31/18 08:30 Dose: 100 mls/hr Linezolid (Zyvox 600mg/300ml D5w) 600 mg in 300 mls @ 300 mls/hr IVPB Q12 [facility]; Protocol Last Admin: 08/31/18 09:40 Dose: 300 mls/hr Insulin Detemir (Levemir) 12 units SC DAILY [facility] Last Admin: 08/31/18 09:32 Dose: 12 unit Insulin Human Lispro (Humalog) 0 units SC ACHS [facility]; Protocol Last Admin: 08/31/18 12:30 Dose: 3 u Meclizine HCl (Antivert) 12.5 mg PO DAILY [facility] Last Admin: 08/18/18 09:27 Dose: 12.5 mg Metformin HCl (Glucophage) 1,000 mg PO BID [facility] Last Admin: 08/16/18 09:34 Dose: Not Given Metoprolol Tartrate (Lopressor) 50 mg PO Q8 [facility] Last Admin: 08/31/18 09:37 Dose: 50 mg Oxycodone/Acetaminophen (Percocet 5/325 Mg Tab) 1 tab PO Q6 PRN PRN Reason: Pain, moderate (4-7) Stop: 09/02/18 22:27 Last Admin: 08/31/18 12:14 Dose: 1 tab Pantoprazole Sodium (Protonix Susp) 40 mg NG DAILY [facility] Last Admin: 08/31/18 09:30 Dose: 40 mg Sucralfate (Carafate Oral Susp) 1 gm PO ACHS [facility] Last Admin: 08/18/18 22:07 Dose: 1 gm - Labs Labs: 08/31/18 06:15 08/31/18 06:15 PT 13.3 Seconds (9.8-13.1) H 08/25/18 05:00 INR 1.2 08/25/18 05:00 APTT 29.9 Seconds (25.6-37.1) 08/25/18 05:00 - Constitutional Appears: No Acute Distress - Eye Exam Eye Exam: Conjunctival injection - ENT Exam ENT Exam: Mucous Membranes Moist - Neck Exam Neck Exam: absent: Lymphadenopathy - Respiratory Exam Respiratory Exam: NORMAL BREATHING PATTERN - Cardiovascular Exam Cardiovascular Exam: absent: Gallop, Rubs - GI/Abdominal Exam GI & Abdominal Exam: Soft, Normal Bowel Sounds - Extremities Exam Extremities Exam: absent: Calf Tenderness - Back Exam Back Exam: absent: CVA tenderness (L), CVA tenderness (R) - Neurological Exam Neurological Exam: Alert - Skin Skin Exam: absent: Cyanosis Assessment and Plan (1) [place] (acute kidney injury) Assessment & Plan: Imaging: -CT Head (08/27/18): Normal CT of the Head. -CT Head (08/23/18): Interval acute subacute infarct left DOG SHOW JUDGE distribution. No definite hemorrhage. Local mass effect identified without global mass effect appreciable. Follow-up CT or MRI advised. -CT Head (08/13/18): Age-appropriate age related neuro degenerative findings without acute intracranial changes at this time. -ECHO w/ Bubble: EF 60-65%; No ASD or PFO noted. -CXR 08/30: Vague R basilar opacity, Possible new RUL opacity and L pleural effusion, Line and tubes unchanged -CXR 08/31: Prelim: more congested impression acute kidney injury related to multifactorial including sepsis improving Respiratory failure patient extubated VRE Sepsis [place] hypernatremia,improving and corrected last serum sodium 141 fever leukocytosis hypokalemia corrected 3.1 the plan continue monitoring Antibiotics as per renal doses Potassium supplement for hypokalemia Status: Acute (2) Acute gastroenteritis Status: Resolved (3) Anginal equivalent Status: Acute
--- NOTE | 2018-08-31 13:16 | CP.PCM.PN ---
Subjective - Date & Time of Evaluation Date of Evaluation: 08/31/18 Time of Evaluation: 09:00 - Subjective Subjective: extubated nad IV rx reordered Objective - Vital Signs/Intake and Output Vital Signs (last 24 hours): Temp Pulse Resp BP Pulse Ox 99.0 F 79 27 H 155/74 H 95 08/31/18 08:00 08/31/18 12:19 08/31/18 12:00 08/31/18 12:19 08/31/18 12:00 Intake and Output: 08/31/18 08/31/18 06:59 18:59 Intake Total 525 652 Output Total 350 750 Balance 175 -98 - Medications Medications: Current Medications Acetaminophen (Tylenol 650mg/20.3ml Solution Ud) 650 mg NG Q6 PRN PRN Reason: Temperature Last Admin: 08/25/18 01:06 Dose: 650 mg Amlodipine Besylate (Norvasc) 5 mg PO Q12 [facility] Last Admin: 08/31/18 09:37 Dose: 5 mg Aspirin (Aspirin Chewable) 81 mg PO DAILY [facility] Last Admin: 08/31/18 09:37 Dose: 81 mg Enoxaparin Sodium (Lovenox) 80 mg SC Q12 [facility]; Protocol Last Admin: 08/31/18 08:51 Dose: 80 mg Furosemide (Lasix) 40 mg IV Q12 [facility] Last Admin: 08/31/18 11:01 Dose: 40 mg Hydralazine HCl (Apresoline) 100 mg PO Q8 [facility] Last Admin: 08/31/18 12:19 Dose: Not Given Meropenem 500 mg/ Sodium (Chloride) 100 mls @ 100 mls/hr IVPB Q8 [facility]; Protocol Last Admin: 08/31/18 08:30 Dose: 100 mls/hr Linezolid (Zyvox 600mg/300ml D5w) 600 mg in 300 mls @ 300 mls/hr IVPB Q12 [facility]; Protocol Last Admin: 08/31/18 09:40 Dose: 300 mls/hr Insulin Detemir (Levemir) 12 units SC DAILY [facility] Last Admin: 08/31/18 09:32 Dose: 12 unit Insulin Human Lispro (Humalog) 0 units SC ACHS [facility]; Protocol Last Admin: 08/31/18 12:30 Dose: 3 u Meclizine HCl (Antivert) 12.5 mg PO DAILY [facility] Last Admin: 08/18/18 09:27 Dose: 12.5 mg Metformin HCl (Glucophage) 1,000 mg PO BID [facility] Last Admin: 08/16/18 09:34 Dose: Not Given Metoprolol Tartrate (Lopressor) 50 mg PO Q8 [facility] Last Admin: 08/31/18 09:37 Dose: 50 mg Oxycodone/Acetaminophen (Percocet 5/325 Mg Tab) 1 tab PO Q6 PRN PRN Reason: Pain, moderate (4-7) Stop: 09/02/18 22:27 Last Admin: 08/31/18 12:14 Dose: 1 tab Pantoprazole Sodium (Protonix Susp) 40 mg NG DAILY [facility] Last Admin: 08/31/18 09:30 Dose: 40 mg Sucralfate (Carafate Oral Susp) 1 gm PO ACHS [facility] Last Admin: 08/18/18 22:07 Dose: 1 gm - Labs Labs: 08/31/18 06:15 08/31/18 06:15 PT 13.3 Seconds (9.8-13.1) H 08/25/18 05:00 INR 1.2 08/25/18 05:00 APTT 29.9 Seconds (25.6-37.1) 08/25/18 05:00 - Constitutional Appears: Confused, Cachectic, Chronically Ill - Head Exam Head Exam: NORMOCEPHALIC - Eye Exam Eye Exam: absent: Scleral icterus - ENT Exam ENT Exam: Mucous Membranes Dry - Neck Exam Neck Exam: absent: Lymphadenopathy - Respiratory Exam Respiratory Exam: Decreased Breath Sounds - Cardiovascular Exam Cardiovascular Exam: REGULAR RHYTHM - GI/Abdominal Exam GI & Abdominal Exam: Distended, Soft - Rectal Exam Rectal Exam: Deferred - Exam Exam: NORMAL INSPECTION Assessment and Plan (1) Dehydration Status: Acute (2) NSTEMI (non-ST elevated myocardial infarction) Status: Acute (3) Nausea & vomiting Status: Resolved (4) Type 2 diabetes mellitus with hyperglycemia Status: Chronic (5) Abdominal pain Status: Acute (6) Gallbladder disease Status: Acute (7) Pneumonia Status: Acute
--- NOTE | 2018-08-31 13:28 | RAD ---
Date of service: 08/31/2018 PROCEDURE: CHEST RADIOGRAPH, 1 VIEW HISTORY: Intubated COMPARISON: 08/30/2018 FINDINGS: The left PICC line terminates in the SVC. LUNGS: There is extensive airspace disease in the lungs with relative sparing of the left upper lobe. PLEURA: No pneumothorax or pleural effusion. CARDIOVASCULAR: The heart is normal in size. Atherosclerotic aortic arch calcifications are present. OSSEOUS STRUCTURES: Within normal limits for the patient's age. VISUALIZED UPPER ABDOMEN: Normal. OTHER FINDINGS: None. IMPRESSION: Findings are most compatible with interval development of diffuse pulmonary edema, worse in the right lung. Follow-up is advised.
[2018-08-31] MEDS: Albuterol-Ipratrop 3 mg / 0.5 (3 ml) UD INH PRN ×2 (14:54→22:00)
--- NOTE | 2018-08-31 19:30 | CARD ---
APPROVED REPORT Date of service: 08/31/2018 EKG Measurement Heart [id number] [id number] <Conclusion> Normal sinus rhythm Cannot rule out small or absent R waves V1-V3, may be due to lead placement or possible septal infarct age undetermined. Abnormal ECG
[2018-08-31] MEDS: Acetaminophen 650mg/20.3ml solution UD PO PRN (20:24)
[2018-08-31 22:21] LABS: ABG ALLEN TEST YES; ARTERIAL BLOOD GAS HCO3 21.5 mmol/L (21-28); ARTERIAL BLOOD GAS HEMOGLOBIN 9.7 g/dL (11.7-17.4); ARTERIAL BLOOD GAS O2 CAPACITY 13.3 mL/dL (16-24); ARTERIAL BLOOD GAS O2 CONTENT 11.9 ML/dL (15-23); ARTERIAL BLOOD GAS O2 SAT 89.8 % (95-98); ARTERIAL BLOOD GAS PCO2 38 mm/Hg (35-45); ARTERIAL BLOOD GAS PH 7.35 (7.35-7.45); ARTERIAL BLOOD GAS PO2 54 mm/Hg (80-100); ARTERIAL BLOOD GAS TCO2 22.2 mmol/L (22-28)
[2018-09-01] MEDS: Meropenem 500 MG in Sodium Chloride 0.9% 100 ML IVPB SCH ×3 (01:00→18:11)
[2018-09-01 06:00] LABS: BASO # 0.1 K/uL (0.0-0.2); BASO % 0.4 % (0.0-2.0); EOS # 0.1 K/uL (0.0-0.7); EOS % 0.3 % (0.0-4.0); HEMOGLOBIN 8.5 g/dL (12.0-16.0); LYMPH # 0.8 K/uL (1.0-4.3); LYMPH % 4.3 % (20.0-40.0); MEAN CELL VOLUME 91.7 fl (81.0-99.0); MEAN CORPUSCULAR HEMOGLOBIN 29.8 pg (27.0-31.0); MEAN CORPUSCULAR HGB CONC 32.5 g/dL (33.0-37.0); MEAN PLATELET VOLUME 8.9 fl (7.2-11.7); MONO # 1.5 K/uL (0.0-0.8); MONO % 7.9 % (0.0-10.0); NEUT # 16.2 K/uL (1.8-7.0); NEUT % 87.1 % (50.0-75.0); RBC 2.86 Mil/uL (3.80-5.20); RED CELL DISTRIBUTION WIDTH 15.4 % (11.5-14.5); WHITE BLOOD COUNT 18.6 K/uL (4.8-10.8)
[2018-09-01 06:05] LABS: ALB/GLOB RATIO 0.9 (1.0-2.1); ALBUMIN 2.9 g/dL (3.5-5.0); CALCIUM 8.1 mg/dL (8.4-10.2)
[2018-09-01] MEDS: Insulin Lispro (humaLOG) 100 Units/ml Inj SC SCH ×4 (06:33→21:49)
[2018-09-01] MEDS: Enoxaparin 80 mg Syringe SC SCH (09:50)
[2018-09-01] MEDS: Insulin Detemir 100 Units/ml Inj SC SCH (09:57)
--- NOTE | 2018-09-01 10:20 | CP.PCM.PN ---
Subjective - Date & Time of Evaluation Date of Evaluation: 09/01/18 Time of Evaluation: 10:19 - Subjective Subjective: patient is comfortable was and restless she is 09/27 observation Objective - Vital Signs/Intake and Output Vital Signs (last 24 hours): Temp Pulse Resp BP Pulse Ox 98.7 F 100 H 36 H 155/69 H 92 L 09/01/18 08:00 09/01/18 10:00 09/01/18 10:00 09/01/18 10:00 09/01/18 10:00 Intake and Output: 09/01/18 09/01/18 06:59 18:59 Intake Total 538 120 Output Total 1350 Balance -812 120 - Medications Medications: Current Medications Acetaminophen (Tylenol 650mg/20.3ml Solution Ud) 650 mg NG Q6 PRN PRN Reason: Temperature Last Admin: 08/25/18 01:06 Dose: 650 mg Acetaminophen (Tylenol 650mg/20.3ml Solution Ud) 650 mg PO Q6 PRN PRN Reason: Pain, Mild (1-3) Last Admin: 08/31/18 20:24 Dose: 650 mg Albuterol/Ipratropium (Duoneb 3 Mg/0.5 Mg (3 Ml) Ud) 3 ml INH RQ6 PRN PRN Reason: Shortness of Breath Last Admin: 08/31/18 22:00 Dose: 3 ml Amlodipine Besylate (Norvasc) 5 mg PO Q12 [facility] Last Admin: 09/01/18 09:52 Dose: 5 mg Aspirin (Aspirin Chewable) 81 mg PO DAILY [facility] Last Admin: 09/01/18 09:51 Dose: 81 mg Enoxaparin Sodium (Lovenox) 80 mg SC Q12 [facility]; Protocol Last Admin: 09/01/18 09:50 Dose: 80 mg Furosemide (Lasix) 40 mg IV Q12 [facility] Last Admin: 09/01/18 09:55 Dose: 40 mg Hydralazine HCl (Apresoline) 100 mg PO Q8 [facility] Last Admin: 09/01/18 09:52 Dose: 100 mg Meropenem 500 mg/ Sodium (Chloride) 100 mls @ 100 mls/hr IVPB Q8 [facility]; Protocol Last Admin: 09/01/18 01:00 Dose: 100 mls/hr Linezolid (Zyvox 600mg/300ml D5w) 600 mg in 300 mls @ 300 mls/hr IVPB Q12 [facility]; Protocol Last Admin: 08/31/18 20:11 Dose: 300 mls/hr Insulin Detemir (Levemir) 12 units SC DAILY [facility] Last Admin: 09/01/18 09:57 Dose: 12 unit Insulin Human Lispro (Humalog) 0 units SC [facility]; Protocol Last Admin: 09/01/18 06:33 Dose: 3 u Meclizine HCl (Antivert) 12.5 mg PO DAILY [facility] Last Admin: 08/18/18 09:27 Dose: 12.5 mg Metformin HCl (Glucophage) 1,000 mg PO BID [facility] Last Admin: 08/16/18 09:34 Dose: Not Given Metoprolol Tartrate (Lopressor) 50 mg PO Q8 [facility] Last Admin: 09/01/18 09:51 Dose: 50 mg Oxycodone/Acetaminophen (Percocet 5/325 Mg Tab) 1 tab PO Q6 PRN PRN Reason: Pain, moderate (4-7) Stop: 09/02/18 22:27 Last Admin: 08/31/18 12:14 Dose: 1 tab Sucralfate (Carafate Oral Susp) 1 gm PO [facility] Last Admin: 08/18/18 22:07 Dose: 1 gm - Labs Labs: 09/01/18 05:30 09/01/18 05:30 PT 13.3 Seconds (9.8-13.1) H 08/25/18 05:00 INR 1.2 08/25/18 05:00 APTT 29.9 Seconds (25.6-37.1) 08/25/18 05:00 - Constitutional Appears: No Acute Distress - Eye Exam Eye Exam: Conjunctival injection - ENT Exam ENT Exam: Mucous Membranes Moist - Neck Exam Neck Exam: absent: Lymphadenopathy - Respiratory Exam Respiratory Exam: Rhonchi, NORMAL BREATHING PATTERN. absent: Chest Wall Tenderness - Cardiovascular Exam Cardiovascular Exam: absent: JVD, Rubs - GI/Abdominal Exam GI & Abdominal Exam: Soft, Normal Bowel Sounds - Extremities Exam Extremities Exam: absent: Calf Tenderness - Back Exam Back Exam: absent: CVA tenderness (L), CVA tenderness (R) - Neurological Exam Neurological Exam: Alert - Psychiatric Exam Psychiatric exam: Anxious - Skin Skin Exam: absent: Cyanosis Assessment and Plan (1) [place] (acute kidney injury) Assessment & Plan: Imaging: -CT Head (08/27/18): Normal CT of the Head. -CT Head (08/23/18): Interval acute subacute infarct left LOW VISION THERAPIST distribution. No definite hemorrhage. Local mass effect identified without global mass effect appreciable. Follow-up CT or MRI adv ised. -CT Head (08/13/18): Age-appropriate age related neuro degenerative findings without acute intracranial changes at this time. -ECHO w/ Bubble: EF 60-65%; No ASD or PFO noted. -CXR 08/30: Vague R basilar opacity, Possible new RUL opacity and L pleural effusion, Line and tubes unchanged -CXR 08/31: Prelim: more congested impression acute kidney injury related to multifactorial including sepsis improving Respiratory failure patient extubated VRE Sepsis [place] hypernatremia,worsening. Serum sodium 146 monitor closely patient may need to cut down the Lasix fever leukocytosis hypokalemia corrected 3.6 plan Continue monitoring electrolyte We will see what happens to the serum sodium BUN/creatinine by tomorrow which has been worsening slowly Status: Acute (2) Acute gastroenteritis Status: Resolved (3) Anginal equivalent Status: Acute
--- NOTE | 2018-09-01 10:50 | CP.CCUPN ---
<Nicole Umana - Last Filed: 09/01/18 10:47> CCU Subjective - Physician Review Subjective (Free Text): This is 73 y/o F admitted to ICU s/p resuscitation from Code Blue/cardiac arrest and intubated. Patient was seen and examined this morning at bedside, patient was extubated on 08/30, improved mental status, follows commands, verbally responsive, NAD. S/p VEEG. + BM, good UO, no acute event overnight, on high flow o2. VS: Afebrile, 162/83, HR 90, Spo2 >92% on high flow, RR 23 PE: HEENT: no icterus, no gaze preference, Pupils 3 mm and reactive NECK: No JVD visible, supple, carotids equal upstroke bilat/no bruit CHEST: decreased BS at the bases, no wheezes audible, on NC HEART: regular, distant, S1S2, no rubs ABD: soft and nontender, no tympany, no guarding, no organomegaly, BS +. EXT: mildly swollen Extremities, no calf tenderness or palpable cords, distal pulses intact and symmetrical, left PICC NEURO: no focal motor weakness, alert and awake , follows commands, verbally responsive SKIN: no rashes, warm and dry LABS: WBC: 18.6, H/H: 8.5/26.2 Plt 428 CMP: Significant for CO2 110, BUN/Cr 32/1.4 Imaging: -CT Head (08/27/18): Normal CT of the Head. -CT Head (08/23/18): Interval acute subacute infarct left BLASTING CONTRACT MINER distribution. No definite hemorrhage. Local mass effect identified without global mass effect appreciable. Follow-up CT or MRI advised. -CT Head (08/13/18): Age-appropriate age related neuro degenerative findings without acute intracranial changes at this time. -ECHO w/ Bubble: EF 60-65%; No ASD or PFO noted. -CXR 08/30: Vague R basilar opacity, Possible new RUL opacity and L pleural effusion, Line and tubes unchanged -CXR 08/31: Diffuse pulm edema, R>L -CXR 09/01: prelim: more congested IMPRESSION/MAJOR PROBLEMS: S/p Cardiac Arrest, Acute resp failure Acute/Subacute NSTEMI VRE Bacteremia/Sepsis, Coag neg Staph [place], multifactorial GI symptoms/GB / Biliary Tract disease Pulmonary edema/Congestion DVT Anemia CVA DM-II HTN Hypokalemia PLAN: - S/p VEEG: no seizures - Extubated on 08/30: patient is currently on high flow - C/w Lasix 40 BID for worsening pulmonary congestion, monitor Renal function, Consider Pulmonary consult - Worsening Renal function, c/w Nephro recommendations - Patient is alert and awake, full liquid diet, advance as tolerated, keep the bed elevated - Staph coag neg Bacteremia/ VRE, C/w Lisa and Linezolid as per ID - NSTEMI: C/w Lovenox 80mg SC Q12H - Hydralazine 100 Q8H - C/w Metoprolol 50 Q8H /Norvasc 5mg BID - C/w Insulin Leve 12 U SC daily and Lispro - C/w Protonix Case discussed with ICU attending CCU Objective - Vital Signs / Intake & Output Vital Signs (Last 4 hours): Vital Signs Temp Pulse Resp BP Pulse Ox 09/01/18 10:00 100 H 36 H 155/69 H 92 L 09/01/18 09:55 162/83 H 09/01/18 09:52 90 162/83 H 09/01/18 09:51 94 H 162/83 H 09/01/18 09:30 20 09/01/18 08:00 98.7 F 87 24 159/75 H 100 09/01/18 07:17 87 Intake and Output (Last 8hrs): Intake & Output 08/31/18 09/01/18 09/01/18 22:59 06:59 14:59 Intake Total 553 193 120 Output Total 700 1350 Balance -147 -1157 120 Weight 174 lb 9.6 oz Intake: IV 13 18 Intake, Piggyback 400 100 Oral 140 75 120 Output: Urine 700 1350 Urethral (Jin) 700 1350 Other: # Bowel Movements 1 0 - Physical Exam Head: Positive for: Atraumatic, Normocephalic Pupils: Positive for: PERRL. Negative for: Sluggish, Non-Reactive, Pinpoint Conjunctiva: Positive for: Normal. Negative for: Injected, Icteric Mouth: Positive for: Moist Mucous Membranes Nose (External): Positive for: Atraumatic Neck: Positive for: Normal Range of Motion Respiratory/Chest: Positive for: Rhonchi Cardiovascular: Positive for: Regular Rate and Rhythm Abdomen: Positive for: Normal Bowel Sounds. Negative for: Tenderness, Distention, Peritoneal Signs Upper Extremity: Positive for: Normal Inspection, NORMAL PULSES, Capillary Refill < 2s. Negative for: Cyanosis, Edema Lower Extremity: Positive for: Normal Inspection. Negative for: Edema, CALF TENDERNESS Neurological: Positive for: Other (on ventilator, opens eyes to verbal stimuli). Negative for: GCS=15, CN II-XII Intact, Speech Normal, Motor Func Grossly Intact, Normal Sensory Function, Normal Cerebellar Funct, Norm Deep Tendon Reflexes, Gait Normal, Memory Normal, Normal 2Pt Descrimination Psychiatric: Negative for: Alert, Oriented x 3 - Medications Active Medications: Active Medications Generic Name Dose Route Start Last Admin Trade Name Freq PRN Reason Stop Dose Admin Acetaminophen 650 mg 08/24/18 10:29 08/25/18 01:06 Tylenol 650mg/20.3ml Solution Ud NG 650 mg Q6 PRN Administration Temperature Acetaminophen 650 mg 08/31/18 19:57 08/31/18 20:24 Tylenol 650mg/20.3ml Solution Ud PO 650 mg Q6 PRN Administration Pain, Mild (1-3) Albuterol/Ipratropium 3 ml 08/31/18 14:34 08/31/18 22:00 Duoneb 3 Mg/0.5 Mg (3 Ml) Ud INH 3 ml RQ6 PRN Administration Shortness of Breath Amlodipine Besylate 5 mg 08/22/18 21:00 09/01/18 09:52 Norvasc PO 5 mg Q12 CARMEN Administration Aspirin 81 mg 08/21/18 09:00 09/01/18 09:51 Aspirin Chewable PO 81 mg DAILY CAR[facility] Administration Enoxaparin Sodium 80 mg 08/29/18 21:00 09/01/18 09:50 Lovenox SC 80 mg Q12 CARMEN Administration Protocol Furosemide 40 mg 08/31/18 10:15 09/01/18 09:55 Lasix IV 40 mg Q12 CARMEN Administration Hydralazine HCl 100 mg 08/31/18 11:00 09/01/18 09:52 Apresoline PO 100 mg Q8 CARMEN Administration Meropenem 500 mg/ Sodium 100 mls @ 100 mls/hr 08/24/18 12:30 09/01/18 01:00 Chloride IVPB 100 mls/hr Q8 [facility] Administration Protocol Linezolid 600 mg in 300 mls @ 300 mls/hr 08/27/18 13:35 08/31/18 20:11 Zyvox 600mg/300ml D5w IVPB 300 mls/hr Q12 [facility]MEN Administration Protocol Insulin Detemir 12 units 08/26/18 14:00 09/01/18 09:57 Levemir SC 12 unit DAILY [facility]MEN Administration Insulin Human Lispro 0 units 08/13/18 11:30 09/01/18 06:33 Humalog SC 3 u ACHS [facility] Administration Protocol Meclizine HCl 12.5 mg 08/13/18 09:00 08/18/18 09:27 Antivert PO 12.5 mg DAILY [facility] Administration Metformin HCl 1,000 mg 08/13/18 09:00 08/16/18 09:34 Glucophage PO Not Given BID [facility] Metoprolol Tartrate 50 mg 08/29/18 17:00 09/01/18 09:51 Lopressor PO 50 mg Q8 [facility] Administration Oxycodone/Acetaminophen 1 tab 08/30/18 22:26 08/31/18 12:14 Percocet 5/325 Mg Tab PO 09/02/18 22:27 1 tab Q6 PRN Administration Pain, moderate (4-7) Sucralfate 1 gm 08/14/18 20:30 08/18/18 22:07 Carafate Oral Susp PO [address] [facility] Administration - Patient Studies Lab Studies: Lab Studies 09/01/18 09/01/18 09/01/18 Range/Units 09:57 05:30 05:30 WBC 18.6 H (4.8-10.8) K/uL RBC 2.86 L (3.80-5.20) Mil/uL Hgb 8.5 L (12.0-16.0) g/dL Hct 26.2 L (34.0-47.0) % MCV 91.7 (81.0-99.0) fl MCH 29.8 (27.0-31.0) pg MCHC 32.5 L (33.0-37.0) g/dL RDW 15.4 H (11.5-14.5) % Plt Count 428 H (130-400) K/uL MPV 8.9 (7.2-11.7) fl Neut % (Auto) 87.1 H (50.0-75.0) % Lymph % (Auto) 4.3 L (20.0-40.0) % [place] % (Auto) 7.9 (0.0-10.0) % Eos % (Auto) 0.3 (0.0-4.0) % Baso % (Auto) 0.4 (0.0-2.0) % Neut # (Auto) 16.2 H (1.8-7.0) K/uL Lymph # (Auto) 0.8 L (1.0-4.3) K/uL [place] # (Auto) 1.5 H (0.0-0.8) K/uL Eos # (Auto) 0.1 (0.0-0.7) K/uL Baso # (Auto) 0.1 (0.0-0.2) K/uL pCO2 (35-45) mm/Hg pO2 (80-100) mm/Hg HCO3 (21-28) mmol/L ABG pH (7.35-7.45) ABG Total CO2 (22-28) mmol/L ABG O2 Saturation (95-98) % ABG O2 Content (15-23) ML/dL ABG Base Excess (-2.0-3.0) mmol/L ABG Hemoglobin (11.7-17.4) g/dL ABG Carboxyhemoglobin (0.5-1.5) % POC ABG HHb (Measured) (0.0-5.0) % ABG Methemoglobin (0.0-3.0) % ABG O2 Capacity (16-24) mL/dL Masoud Test A-a O2 Difference mm/Hg Hgb O2 Saturation (95.0-98.0) % FiO2 % Sodium 144 (132-148) mmol/l Potassium 3.6 (3.6-5.0) MMOL/L Chloride 110 H (98-107) mmol/L Carbon Dioxide 23 (22-30) mmol/L Anion Gap 15 (10-20) BUN 32 H (7-17) mg/dl Creatinine 1.4 H (0.7-1.2) mg/dl Est GFR ( Amer) 44 Est GFR (Non-Af Amer) 37 POC Glucose (mg/dL) 282 H (65-110) mg/dL Random Glucose 255 H (65-105) mg/dL Calcium 8.1 L (8.4-10.2) mg/dL Total Bilirubin 0.8 (0.2-1.3) mg/dl AST 28 (14-36) U/L ALT 55 H (9-52) U/L Alkaline Phosphatase 109 (38-126) U/L Troponin I (0.00-0.120) ng/mL Total Protein 6.2 L (6.3-8.2) G/DL Albumin 2.9 L (3.5-5.0) g/dL Globulin 3.3 (2.2-3.9) gm/dL Albumin/Globulin Ratio 0.9 L (1.0-2.1) 09/01/18 08/31/18 08/31/18 Range/Units 04:52 22:19 20:58 WBC (4.8-10.8) K/uL RBC (3.80-5.20) Mil/uL Hgb (12.0-16.0) g/dL Hct (34.0-47.0) % MCV (81.0-99.0) fl MCH (27.0-31.0) pg MCHC (33.0-37.0) g/dL RDW (11.5-14.5) % Plt Count (130-400) K/uL MPV (7.2-11.7) fl Neut % (Auto) (50.0-75.0) % Lymph % (Auto) (20.0-40.0) % [place] % (Auto) (0.0-10.0) % Eos % (Auto) (0.0-4.0) % Baso % (Auto) (0.0-2.0) % Neut # (Auto) (1.8-7.0) K/uL Lymph # (Auto) (1.0-4.3) K/uL [place] # (Auto) (0.0-0.8) K/uL Eos # (Auto) (0.0-0.7) K/uL Baso # (Auto) (0.0-0.2) K/uL pCO2 38 (35-45) mm/Hg pO2 54 L (80-100) mm/Hg HCO3 21.5 (21-28) mmol/L ABG pH 7.35 (7.35-7.45) ABG Total CO2 22.2 (22-28) mmol/L ABG O2 Saturation 89.8 L (95-98) % ABG O2 Content 11.9 L (15-23) ML/dL ABG Base Excess -4.2 L (-2.0-3.0) mmol/L ABG Hemoglobin 9.7 L (11.7-17.4) g/dL ABG Carboxyhemoglobin 2.1 H (0.5-1.5) % POC ABG HHb (Measured) 9.9 H (0.0-5.0) % ABG Methemoglobin 1.0 (0.0-3.0) % ABG O2 Capacity 13.3 L (16-24) mL/dL Masoud Test Yes A-a O2 Difference 184.0 mm/Hg Hgb O2 Saturation 87.0 L (95.0-98.0) % FiO2 40.0 % Sodium (132-148) mmol/l Potassium (3.6-5.0) MMOL/L Chloride (98-107) mmol/L Carbon Dioxide (22-30) mmol/L Anion Gap (10-20) BUN (7-17) mg/dl Creatinine (0.7-1.2) mg/dl Est GFR ( Amer) Est GFR (Non-Af Amer) POC Glucose (mg/dL) 290 H 215 H (65-110) mg/dL Random Glucose (65-105) mg/dL Calcium (8.4-10.2) mg/dL Total Bilirubin (0.2-1.3) mg/dl AST (14-36) U/L ALT (9-52) U/L Alkaline Phosphatase (38-126) U/L Troponin I (0.00-0.120) ng/mL Total Protein (6.3-8.2) G/DL Albumin (3.5-5.0) g/dL Globulin (2.2-3.9) gm/dL Albumin/Globulin Ratio (1.0-2.1) 08/31/18 08/31/18 08/31/18 Range/Units 16:28 13:06 12:13 WBC (4.8-10.8) K/uL RBC (3.80-5.20) Mil/uL Hgb (12.0-16.0) g/dL Hct (34.0-47.0) % MCV (81.0-99.0) fl MCH (27.0-31.0) pg MCHC (33.0-37.0) g/dL RDW (11.5-14.5) % Plt Count (130-400) K/uL MPV (7.2-11.7) fl Neut % (Auto) (50.0-75.0) % Lymph % (Auto) (20.0-40.0) % [place] % (Auto) (0.0-10.0) % Eos % (Auto) (0.0-4.0) % Baso % (Auto) (0.0-2.0) % Neut # (Auto) (1.8-7.0) K/uL Lymph # (Auto) (1.0-4.3) K/uL [place] # (Auto) (0.0-0.8) K/uL Eos # (Auto) (0.0-0.7) K/uL Baso # (Auto) (0.0-0.2) K/uL pCO2 (35-45) mm/Hg pO2 (80-100) mm/Hg HCO3 (21-28) mmol/L ABG pH (7.35-7.45) ABG Total CO2 (22-28) mmol/L ABG O2 Saturation (95-98) % ABG O2 Content (15-23) ML/dL ABG Base Excess (-2.0-3.0) mmol/L ABG Hemoglobin (11.7-17.4) g/dL ABG Carboxyhemoglobin (0.5-1.5) % POC ABG HHb (Measured) (0.0-5.0) % ABG Methemoglobin (0.0-3.0) % ABG O2 Capacity (16-24) mL/dL Masoud Test A-a O2 Difference mm/Hg Hgb O2 Saturation (95.0-98.0) % FiO2 % Sodium (132-148) mmol/l Potassium (3.6-5.0) MMOL/L Chloride (98-107) mmol/L Carbon Dioxide (22-30) mmol/L Anion Gap (10-20) BUN (7-17) mg/dl Creatinine (0.7-1.2) mg/dl Est GFR ( Amer) Est GFR (Non-Af Amer) POC Glucose (mg/dL) 250 H 253 H (65-110) mg/dL Random Glucose (65-105) mg/dL Calcium (8.4-10.2) mg/dL Total Bilirubin (0.2-1.3) mg/dl AST (14-36) U/L ALT (9-52) U/L Alkaline Phosphatase (38-126) U/L Troponin I 0.1800 H* (0.00-0.120) ng/mL Total Protein (6.3-8.2) G/DL Albumin (3.5-5.0) g/dL Globulin (2.2-3.9) gm/dL Albumin/Globulin Ratio (1.0-2.1) Laboratory Results - last 24 hr 08/31/18 08/31/18 08/31/18 12:13 13:06 16:28 WBC RBC Hgb Hct MCV MCH MCHC RDW Plt Count MPV Neut % (Auto) Lymph % (Auto) [place] % (Auto) Eos % (Auto) Baso % (Auto) Neut # (Auto) Lymph # (Auto) [place] # (Auto) Eos # (Auto) Baso # (Auto) pCO2 pO2 HCO3 ABG pH ABG Total CO2 ABG O2 Saturation ABG O2 Content ABG Base Excess ABG Hemoglobin ABG Carboxyhemoglobin POC ABG HHb (Measured) ABG Methemoglobin ABG O2 Capacity Masoud Test A-a O2 Difference Hgb O2 Saturation FiO2 Sodium Potassium Chloride Carbon Dioxide Anion Gap BUN Creatinine Est GFR ( Amer) Est GFR (Non-Af Amer) POC Glucose (mg/dL) 253 H 250 H Random Glucose Calcium Total Bilirubin AST ALT Alkaline Phosphatase Troponin I 0.1800 H* Total Protein Albumin Globulin Albumin/Globulin Ratio 08/31/18 08/31/18 09/01/18 20:58 22:19 04:52 WBC RBC Hgb Hct MCV MCH MCHC RDW Plt Count MPV Neut % (Auto) Lymph % (Auto) [place] % (Auto) Eos % (Auto) Baso % (Auto) Neut # (Auto) Lymph # (Auto) [place] # (Auto) Eos # (Auto) Baso # (Auto) pCO2 38 pO2 54 L HCO3 21.5 ABG pH 7.35 ABG Total CO2 22.2 ABG O2 Saturation 89.8 L ABG O2 Content 11.9 L ABG Base Excess -4.2 L ABG Hemoglobin 9.7 L ABG Carboxyhemoglobin 2.1 H POC ABG HHb (Measured) 9.9 H ABG Methemoglobin 1.0 ABG O2 Capacity 13.3 L Masoud Test Yes A-a O2 Difference 184.0 Hgb O2 Saturation 87.0 L FiO2 40.0 Sodium Potassium Chloride Carbon Dioxide Anion Gap BUN Creatinine Est GFR ( Amer) Est GFR (Non-Af Amer) POC Glucose (mg/dL) 215 H 290 H Random Glucose Calcium Total Bilirubin AST ALT Alkaline Phosphatase Troponin I Total Protein Albumin Globulin Albumin/Globulin Ratio 09/01/18 09/01/18 09/01/18 05:30 05:30 09:57 WBC 18.6 H RBC 2.86 L Hgb 8.5 L Hct 26.2 L MCV 91.7 MCH 29.8 MCHC 32.5 L RDW 15.4 H Plt Count 428 H MPV 8.9 Neut % (Auto) 87.1 H Lymph % (Auto) 4.3 L [place] % (Auto) 7.9 Eos % (Auto) 0.3 Baso % (Auto) 0.4 Neut # (Auto) 16.2 H Lymph # (Auto) 0.8 L [place] # (Auto) 1.5 H Eos # (Auto) 0.1 Baso # (Auto) 0.1 pCO2 pO2 HCO3 ABG pH ABG Total CO2 ABG O2 Saturation ABG O2 Content ABG Base Excess ABG Hemoglobin ABG Carboxyhemoglobin POC ABG HHb (Measured) ABG Methemoglobin ABG O2 Capacity Masoud Test A-a O2 Difference Hgb O2 Saturation FiO2 Sodium 144 Potassium 3.6 Chloride 110 H Carbon Dioxide 23 Anion Gap 15 BUN 32 H Creatinine 1.4 H Est GFR ( Amer) 44 Est GFR (Non-Af Amer) 37 POC Glucose (mg/dL) 282 H Random Glucose 255 H Calcium 8.1 L Total Bilirubin 0.8 AST 28 ALT 55 H Alkaline Phosphatase 109 Troponin I Total Protein 6.2 L Albumin 2.9 L Globulin 3.3 Albumin/Globulin Ratio 0.9 L Fingerstick Blood Sugar Results: 282 Critical Care Progress Note - Nutrition Nutrition: Nutrition Category Date Time Status Dysphagia/Modified Consistency Diet [DIET] Diets 09/01/18 Breakfast Active <Morgan Melendez - Last Filed: 09/01/18 14:15> CCU Subjective - Physician Review Subjective (Free Text): Attestation: Patient seen and examined at the bedside with Resident Dr. Jud Umana; and I agree with his outline of plans and management documented above and below, reflecting my review of all applicable clinical data, and participation in the care of the patient throughout the day in ICU; today, September 01, 2018.
[2018-09-01] MEDS: Linezolid 600 mg in D5W 300 ml 600 MG/300 ML BAG IVPB SCH ×2 (12:22→20:17)
--- NOTE | 2018-09-01 12:24 | CP.PCM.PN ---
Subjective - Date & Time of Evaluation Date of Evaluation: 09/01/18 Time of Evaluation: 12:22 - Subjective Subjective: Neurology Consultation Follow-Up Note: Mrs. Whitney was evaluated this morning in the ICU. She remains extubated. She was able to follow some commands today. ROS limited as pt was nonverbal during my time with her, although, per sitter in room she does speak in short sentences. Pt today answered some of my questions by shaking and nodding head again like yesterday. Her only complaint today is that she feels warm and is observed fanning herself with only right hand. Denies h/a, dizziness, visual changes, chest pain, sob, abd pain, n/v/d. No acute overnight events per nursing; chart reviewed. Objective - Vital Signs/Intake and Output Vital Signs (last 24 hours): Temp Pulse Resp BP Pulse Ox 99 F 97 H 30 H 151/71 H 93 L 09/01/18 12:20 09/01/18 12:00 09/01/18 12:00 09/01/18 12:00 09/01/18 12:00 Intake and Output: 09/01/18 09/01/18 06:59 18:59 Intake Total 538 120 Output Total 1350 Balance -812 120 - Medications Medications: Current Medications Acetaminophen (Tylenol 650mg/20.3ml Solution Ud) 650 mg NG Q6 PRN PRN Reason: Temperature Last Admin: 08/25/18 01:06 Dose: 650 mg Acetaminophen (Tylenol 650mg/20.3ml Solution Ud) 650 mg PO Q6 PRN PRN Reason: Pain, Mild (1-3) Last Admin: 08/31/18 20:24 Dose: 650 mg Albuterol/Ipratropium (Duoneb 3 Mg/0.5 Mg (3 Ml) Ud) 3 ml INH RQ6 PRN PRN Reason: Shortness of Breath Last Admin: 08/31/18 22:00 Dose: 3 ml Amlodipine Besylate (Norvasc) 5 mg PO Q12 [facility] Last Admin: 09/01/18 09:52 Dose: 5 mg Aspirin (Aspirin Chewable) 81 mg PO DAILY [facility] Last Admin: 09/01/18 09:51 Dose: 81 mg Enoxaparin Sodium (Lovenox) 80 mg SC Q12 [facility]MEN; Protocol Last Admin: 09/01/18 09:50 Dose: 80 mg Furosemide (Lasix) 40 mg IV Q12 [facility] Last Admin: 09/01/18 09:55 Dose: 40 mg Hydralazine HCl (Apresoline) 100 mg PO Q8 [facility] Last Admin: 09/01/18 09:52 Dose: 100 mg Meropenem 500 mg/ Sodium (Chloride) 100 mls @ 100 mls/hr IVPB Q8 [facility]; Protocol Last Admin: 09/01/18 10:56 Dose: 100 mls/hr Linezolid (Zyvox 600mg/300ml D5w) 600 mg in 300 mls @ 300 mls/hr IVPB Q12 [facility]; Protocol Last Admin: 09/01/18 12:22 Dose: 300 mls/hr Insulin Detemir (Levemir) 12 units SC DAILY [facility] Last Admin: 09/01/18 09:57 Dose: 12 unit Insulin Human Lispro (Humalog) 0 units SC ACHS [facility]; Protocol Last Admin: 09/01/18 06:33 Dose: 3 u Meclizine HCl (Antivert) 12.5 mg PO DAILY [facility] Last Admin: 08/18/18 09:27 Dose: 12.5 mg Metformin HCl (Glucophage) 1,000 mg PO BID [facility] Last Admin: 08/16/18 09:34 Dose: Not Given Metoprolol Tartrate (Lopressor) 50 mg PO Q8 [facility] Last Admin: 09/01/18 09:51 Dose: 50 mg Oxycodone/Acetaminophen (Percocet 5/325 Mg Tab) 1 tab PO Q6 PRN PRN Reason: Pain, moderate (4-7) Stop: 09/02/18 22:27 Last Admin: 08/31/18 12:14 Dose: 1 tab Sucralfate (Carafate Oral Susp) 1 gm PO ACHS [facility] Last Admin: 08/18/18 22:07 Dose: 1 gm - Labs Labs: 09/01/18 05:30 09/01/18 05:30 PT 13.3 Seconds (9.8-13.1) H 08/25/18 05:00 INR 1.2 08/25/18 05:00 APTT 29.9 Seconds (25.6-37.1) 08/25/18 05:00 - Constitutional Appears: Well - Head Exam Head Exam: ATRAUMATIC, NORMAL INSPECTION, NORMOCEPHALIC - Eye Exam Eye Exam: EOMI, PERRL Pupil Exam: PERRL - ENT Exam ENT Exam: Mucous Membranes Moist - Neck Exam Neck Exam: Full ROM - Respiratory Exam Respiratory Exam: NORMAL BREATHING PATTERN - Extremities Exam Extremities Exam: absent: Full ROM (BUE and BLE weakness remains, however, increased weakness noted to LLE and LUE today compared to yesterday) - Neurological Exam Neurological Exam: Alert, Awake, Reflexes Normal Neuro motor strength exam: Left Upper Extremity: 2/1 (1/5; director dermatology 0/5), Right Upper Extremity: 3 (director dermatology 3/5), Left Lower Extremity: 0, Right Lower Extremity: 2/1 (2/5) Additional comments: Pt extubated; nonverbal during my rounds. Able to follow some commands. Shakes/nods head in response to questions. No jerky movements observed today. Strength to RUE: 3/5, director dermatology to RUE 4/5; Strength to LUE: 1/5, director dermatology to LUE: 0/5---decrease in lue movement, strength and director dermatology compared to yesterday Strength to RLE: 2/5, dorsiflexion to RLE 3/5; Strength to LLE: 0/5, dorsifl exion to LLE 0/5---decrease in lle strength, movement and dorsiflexion compared to yesterday - Skin Skin Exam: Normal Color Assessment and Plan (1) CVA (cerebral vascular accident) Assessment & Plan: Imaging: -CT Head (08/27/18): Normal CT of the Head. -CT Head (08/23/18): Interval acute subacute infarct left PY[employer]GRAMMER distribution. No definite hemorrhage. Local mass effect identified without global mass effect appreciable. Follow-up CT or MRI advised. -CT Head (08/13/18): Age-appropriate age related neuro degenerative findings without acute intracranial changes at this time. -ECHO w/ Bubble: EF 60-65%; No ASD or PFO noted. -Mrs. Whitney remains extubated. She was able to follow some commands during exam. -VEEG x24 hours--This was an abnormal video EEG, monitoring study, due to the presence of: Moderate background slowing, and EEG disorganization. No episodes were capture. No seizures, not in status epilepticus. -Continue BP control. -Continue ASA and Lovenox per cardio. -Please notify neuro team of any acute changes. -We will continue to follow the patient while she is in the hospital. Discussed worsening strength and decreased movement to Mrs. Whitney's left side with Dr. Garibay---we are recommending a stat MRI Brain to r/o acute infarct or other acute changes; if MRI Brain unable to be done please notify me ([phone]) or Dr. Garibay so that we can order a stat CT Head without contrast Case discussed in detail with Dr. Garibay Thank you. Status: Acute
[2018-09-01] MEDS ORDERED: Propofol 10 mg/ml 1,000 MG/100 ML VIAL ONE (13:39)
[2018-09-01] MEDS ORDERED: Sodium Chloride 3% for Inhalation 4 ML VIAL.NEB IH PRN (13:53)
[2018-09-01] MEDS ORDERED: Propofol 10 mg/ml Inj (20 ML) IV ONE (13:56)
[2018-09-01] MEDS ORDERED: Propofol 10 mg/ml 1,000 MG/100 ML VIAL IV SCH (14:00)
--- NOTE | 2018-09-01 14:00 | PCM.PROC ---
Procedures Attestation:: I certify that I have explained the specified Operation(s) or Procedure(s), risks, benefits and reasonable alternatives to the Patient and/or other person responsible. The opportunity was given to ask questions and all questions answered - Intubation Time Out Performed: Yes Sedative: Other (Propofol) Mg Given: 70 Laryngoscope: Mackenzie ET Tube Size: 7.5 ET Tube Secured at Depth: 22 ET Tube Secured [place]: Lips ET Tube Placement Confirmation: Visualized Passing Through Cords, Breath Sounds Equal Bilaterally, No Breath Sounds Over Epigastrum, Confirmation w/Capnometry Patient Tolerated Procedure: Well Procedure Immediate Complications: None Additional comments: Decision made to intubate: increasing lethargy, on HFNC at 20 LPM and 50% oxygen with 90% SPO2, no improvement after increase to 100% oxygenation, too lethargic for return to BiPAP and mottling of the extremities noted.
--- NOTE | 2018-09-01 15:04 | RAD ---
Date of service: 09/01/2018 PROCEDURE: CHEST RADIOGRAPH, 1 VIEW HISTORY: Intubated COMPARISON: Multiple serial examinations preceding the most recent study: September 01, 2018 study performed 10:03. FINDINGS: LUNGS: Stable asymmetrical pulmonary edema. PLEURA: No pneumothorax or pleural fluid seen. CARDIOVASCULAR: Atherosclerotic calcifications identified primarily aortic arch. OSSEOUS STRUCTURES: No significant abnormalities. VISUALIZED UPPER ABDOMEN: Normal. OTHER FINDINGS: Satisfactory position ventilatory, vascular and nasogastric apparatus. The endotracheal tube tip is 3 cm above the kevon. PICC line is in the SVC. IMPRESSION: Satisfactory position of recently placed support apparatus. Stable asymmetrical pulmonary edema.
--- NOTE | 2018-09-01 15:23 | RAD ---
Date of service: 09/01/2018 PROCEDURE: CHEST RADIOGRAPH, 1 VIEW HISTORY: S/p intubation COMPARISON: August 31, 2018. FINDINGS: LUNGS: Asymmetrical pulmonary edema similar to that seen previously PLEURA: No pneumothorax or pleural fluid seen. CARDIOVASCULAR: Atherosclerotic calcifications identified primarily aortic arch. Venous access catheter in stable, satisfactory position. OSSEOUS STRUCTURES: No significant abnormalities. VISUALIZED UPPER ABDOMEN: Normal. OTHER FINDINGS: None. IMPRESSION: Stable asymmetrical pulmonary edema.
--- NOTE | 2018-09-01 15:58 | CT ---
Date of service: 09/01/2018 PROCEDURE: CT HEAD WITHOUT CONTRAST. HISTORY: STAT as per Neurology, r/o new CVA COMPARISON: None available. TECHNIQUE: Axial computed tomography images were obtained through the head/brain without intravenous contrast. Radiation dose: Total exam DLP = 891.38 mGy-cm. This CT exam was performed using one or more of the following dose reduction techniques: Automated exposure control, adjustment of the mA and/or kV according to patient size, and/or use of iterative reconstruction technique. FINDINGS: HEMORRHAGE: No intracranial hemorrhage. BRAIN: No mass effect or edema. Minimal periventricular white matter lucency consistent with chronic microvascular white matter ischemic change. There is an old lacunar infarct in the high right centrum semiovale. There is no evidence of acute infarct. There is minimal diffuse atrophy. VENTRICLES: Unremarkable. No hydrocephalus. CALVARIUM: Unremarkable. PARANASAL SINUSES: Unremarkable as visualized. No significant inflammatory changes. MASTOID AIR CELLS: Unremarkable as visualized. No inflammatory changes. OTHER FINDINGS: None. IMPRESSION: No evidence of acute infarct. Old white matter lacune of the right centrum semiovale. Minimal atrophy and chronic white matter ischemic change.
--- NOTE | 2018-09-01 16:37 | CT ---
Date of service: 09/01/2018 PROCEDURE: CT Chest without contrast HISTORY: pneumonia, S/p Extubation on 08/30 COMPARISON: None available. TECHNIQUE: Contiguous axial images were obtained through the chest without intravenous contrast enhancement. Sagittal and coronal reconstructions were performed. Radiation dose (DLP): 569.22 mGy-cm. This CT exam was performed using one or more of the following dose reduction techniques: Automated exposure control, adjustment of the mA and/or kV according to patient size, and/or use of iterative reconstruction technique. FINDINGS: LUNGS: Bilateral upper lobe infiltrate, right greater than left. Bilateral extensive lower lobe compressive atelectasis secondary to pleural effusions. No pulmonary mass identified. MEDIASTINUM: Unremarkable thoracic aorta. No aneurysm. Mild cardiomegaly. Coronary arterial calcification noted. Main pulmonary artery unremarkable. No vascular congestion. No lymphadenopathy. There is atherosclerotic calcification of the thoracic aorta. An endotracheal tube is seen with its tip situated 18 mm above the tracheal kevon. A nasogastric tube traverses the thoracic esophagus to the stomach. PLEURA: Moderate to large bilateral pleural effusion. No pneumothorax. BONES: No fracture. No destructive lesion. UPPER ABDOMEN: Grossly unremarkable. OTHER FINDINGS: None. IMPRESSION: Moderate to large bilateral pleural effusion. Bilateral upper lobe infiltrate, right greater than left. Bilateral lower lobe extensive compressive atelectasis. ET tube. NG tube. Mild cardiomegaly.
[2018-09-01 17:49] LABS: ABG ALLEN TEST YES; ARTERIAL BLOOD GAS HCO3 25.8 mmol/L (21-28); ARTERIAL BLOOD GAS HEMOGLOBIN 8.5 g/dL (11.7-17.4); ARTERIAL BLOOD GAS O2 CAPACITY 11.8 mL/dL (16-24); ARTERIAL BLOOD GAS O2 CONTENT 11.8 ML/dL (15-23); ARTERIAL BLOOD GAS O2 SAT 100.1 % (95-98); ARTERIAL BLOOD GAS PCO2 29 mm/Hg (35-45); ARTERIAL BLOOD GAS PH 7.52 (7.35-7.45); ARTERIAL BLOOD GAS PO2 85 mm/Hg (80-100); ARTERIAL BLOOD GAS TCO2 24.6 mmol/L (22-28)
[2018-09-01] MEDS: Pantoprazole 40 mg Susp UD NG SCH (18:09)
[2018-09-02] MEDS: Meropenem 500 MG in Sodium Chloride 0.9% 100 ML IVPB SCH ×3 (00:30→17:09)
[2018-09-02 04:54] LABS: ABG ALLEN TEST YES; ARTERIAL BLOOD GAS HCO3 26.8 mmol/L (21-28); ARTERIAL BLOOD GAS HEMOGLOBIN 7.5 g/dL (11.7-17.4); ARTERIAL BLOOD GAS O2 CAPACITY 10.4 mL/dL (16-24); ARTERIAL BLOOD GAS O2 CONTENT 10.5 ML/dL (15-23); ARTERIAL BLOOD GAS O2 SAT 100.9 % (95-98); ARTERIAL BLOOD GAS PCO2 30 mm/Hg (35-45); ARTERIAL BLOOD GAS PH 7.53 (7.35-7.45); ARTERIAL BLOOD GAS PO2 95 mm/Hg (80-100)
[2018-09-02 05:43] LABS: BASO # 0.1 K/uL (0.0-0.2); BASO % 0.5 % (0.0-2.0); EOS % 0.3 % (0.0-4.0); HEMOGLOBIN 7.5 g/dL (12.0-16.0); LYMPH # 0.9 K/uL (1.0-4.3); LYMPH % 7.5 % (20.0-40.0); MEAN CELL VOLUME 92.6 fl (81.0-99.0); MEAN CORPUSCULAR HEMOGLOBIN 30.5 pg (27.0-31.0); MEAN CORPUSCULAR HGB CONC 32.9 g/dL (33.0-37.0); MEAN PLATELET VOLUME 8.2 fl (7.2-11.7); MONO % 8.3 % (0.0-10.0); NEUT # 10.2 K/uL (1.8-7.0); NEUT % 83.4 % (50.0-75.0); RBC 2.45 Mil/uL (3.80-5.20); WHITE BLOOD COUNT 12.2 K/uL (4.8-10.8)
[2018-09-02] MEDS: Acetaminophen 650mg/20.3ml solution UD PO PRN (05:54)
[2018-09-02 06:14] LABS: CALCIUM 7.8 mg/dL (8.4-10.2); TROPONIN I 1.06 ng/mL (0.00-0.120)
[2018-09-02] MEDS: Insulin Lispro (humaLOG) 100 Units/ml Inj SC SCH ×5 (08:19→21:39)
[2018-09-02] MEDS ORDERED: Potassium Chloride 20 mEq 100 ML IVPB ONE (09:15)
--- NOTE | 2018-09-02 09:51 | RAD ---
Date of service: 09/02/2018 HISTORY: Intubated COMPARISON: Portable chest 09/01/2018. FINDINGS: LUNGS: Endotracheal and nasogastric tubes do not appear significantly changed in position. Left PICC insertion also unchanged. Diminishing infiltrate is identified at the right apex PLEURA: No pneumothorax bilaterally however minimal blunting bilateral costophrenic sulci suggests small pleural effusions symmetrically bilaterally. CARDIOVASCULAR: Calcific atherosclerotic changes are seen related to the thoracic aorta. Stable cardiomediastinal silhouette. Mild pulmonary vascular congestion unchanged. OSSEOUS STRUCTURES: No significant abnormalities. VISUALIZED UPPER ABDOMEN: Normal. OTHER FINDINGS: None. IMPRESSION: Improving right upper lobe infiltrate with stable mild active CHF appreciated. Trace bilateral pleural effusion identified.
[2018-09-02] MEDS: Insulin Detemir 100 Units/ml Inj SC SCH (09:52)
[2018-09-02] MEDS: Pantoprazole 40 mg Susp UD NG SCH (09:56)
[2018-09-02] MEDS: Linezolid 600 mg in D5W 300 ml 600 MG/300 ML BAG IVPB SCH ×2 (09:56→22:18)
--- NOTE | 2018-09-02 10:22 | CP.PCM.PN ---
Subjective - Date & Time of Evaluation Date of Evaluation: 09/02/18 Time of Evaluation: 10:21 Objective - Vital Signs/Intake and Output Vital Signs (last 24 hours): Temp Pulse Resp BP Pulse Ox 99.3 F 80 23 116/44 L 100 09/02/18 08:00 09/02/18 09:55 09/02/18 08:00 09/02/18 09:55 09/02/18 08:00 Intake and Output: 09/02/18 09/02/18 06:59 18:59 Intake Total 60 Output Total 300 Balance -240 - Medications Medications: Current Medications Acetaminophen (Tylenol 650mg/20.3ml Solution Ud) 650 mg NG Q6 PRN PRN Reason: Temperature Last Admin: 08/25/18 01:06 Dose: 650 mg Acetaminophen (Tylenol 650mg/20.3ml Solution Ud) 650 mg PO Q6 PRN PRN Reason: Pain, Mild (1-3) Last Admin: 09/02/18 05:54 Dose: 650 mg Albuterol/Ipratropium (Duoneb 3 Mg/0.5 Mg (3 Ml) Ud) 3 ml INH RQ6 PRN PRN Reason: Shortness of Breath Last Admin: 08/31/18 22:00 Dose: 3 ml Amlodipine Besylate (Norvasc) 5 mg PO Q12 [facility] Last Admin: 09/02/18 09:55 Dose: 5 mg Aspirin (Aspirin Chewable) 81 mg PO DAILY [facility] Last Admin: 09/02/18 10:00 Dose: 81 mg Enoxaparin Sodium (Lovenox) 80 mg SC DAILY [facility]; Protocol Furosemide (Lasix) 40 mg IV DAILY [facility] Hydralazine HCl (Apresoline) 100 mg PO Q8 [facility] Last Admin: 09/02/18 09:49 Dose: Not Given Meropenem 500 mg/ Sodium (Chloride) 100 mls @ 100 mls/hr IVPB Q8 [facility]; Protocol Last Admin: 09/02/18 09:53 Dose: 100 mls/hr Linezolid (Zyvox 600mg/300ml D5w) 600 mg in 300 mls @ 300 mls/hr IVPB Q12 [facility]; Protocol Last Admin: 09/02/18 09:56 Dose: 300 mls/hr Propofol (Diprivan) 1,000 mg in 100 mls @ 2.376 mls/hr IV .Q24H [facility]; Protocol Stop: 09/02/18 13:57 Last Titration: 09/01/18 14:25 Dose: 10 mcg/kg/min, 4.752 mls/hr Potassium Chloride (Potassium Chloride 20 Meq/100 Ml) 100 mls @ 50 mls/hr IVPB ONCE ONE Stop: 09/02/18 11:14 Insulin Detemir (Levemir) 12 units SC DAILY [facility] Last Admin: 09/02/18 09:52 Dose: 12 unit Insulin Human Lispro (Humalog) 0 units SC [facility]; Protocol Last Admin: 09/02/18 08:20 Dose: 1 u Meclizine HCl (Antivert) 12.5 mg PO DAILY [facility] Last Admin: 08/18/18 09:27 Dose: 12.5 mg Metformin HCl (Glucophage) 1,000 mg PO BID [facility] Last Admin: 08/16/18 09:34 Dose: Not Given Metoprolol Tartrate (Lopressor) 50 mg PO Q8 [facility] Last Admin: 09/02/18 09:50 Dose: 50 mg Oxycodone/Acetaminophen (Percocet 5/325 Mg Tab) 1 tab PO Q6 PRN PRN Reason: Pain, moderate (4-7) Stop: 09/02/18 22:27 Last Admin: 08/31/18 12:14 Dose: 1 tab Pantoprazole Sodium (Protonix Susp) 40 mg NG DAILY [facility] Last Admin: 09/02/18 09:56 Dose: 40 mg Sucralfate (Carafate Oral Susp) 1 gm PO [facility] Last Admin: 08/18/18 22:07 Dose: 1 gm - Labs Labs: 09/02/18 04:25 09/02/18 04:25 PT 13.3 Seconds (9.8-13.1) H 08/25/18 05:00 INR 1.2 08/25/18 05:00 APTT 29.9 Seconds (25.6-37.1) 08/25/18 05:00 Assessment and Plan (1) CVA (cerebral vascular accident) Assessment & Plan: Imaging: -CT Head (09/01/18): No evidence of acute infarct. Old white matter lacune of the right centrum semiovale. Minimal atrophy and chronic white matter ischemic change. -CT Head (08/27/18): Normal CT of the Head. -CT Head (08/23/18): Interval acute subacute infarct left [employer] distribution. No definite hemorrhage. Local mass effect identified without global mass effect appreciable. Follow-up CT or MRI advised. -CT Head (08/13/18): Age-appropriate age related neuro degenerative findings without acute intracranial changes at this time. -ECHO w/ Bubble: EF 60-65%; No ASD or PFO noted. -VEEG x24 hours--This was an abnormal video EEG, monitoring study, due to the presence of: Moderate background slowing, and EEG disorganization. No episodes were capture. No seizures, not in status epilepticus. -Mrs. Whitney was reintubated yesterday afternoon. -Repeat head ct ordered yesterday neg for acute findings. -Continue BP control. -Continue ASA and Lovenox per cardio. -Please notify neuro team of any acute changes. -We will continue to follow the patient. Case discussed with Dr. Garibay. Status: Acute
--- NOTE | 2018-09-02 10:33 | CARD ---
APPROVED REPORT Date of service: 09/02/2018 EKG Measurement Heart [id number] ID [id number] <Conclusion> Normal sinus rhythm Nonspecific ST changes Abnormal ECG
--- NOTE | 2018-09-02 10:40 | CP.PCM.PN ---
Subjective - Date & Time of Evaluation Date of Evaluation: 09/02/18 Time of Evaluation: 10:40 - Subjective Subjective: patient reintubated Somewhat restless Vital sign noted Hemoglobin dropping Objective - Vital Signs/Intake and Output Vital Signs (last 24 hours): Temp Pulse Resp BP Pulse Ox 99.3 F 80 23 116/44 L 100 09/02/18 08:00 09/02/18 09:55 09/02/18 08:00 09/02/18 09:55 09/02/18 08:00 Intake and Output: 09/02/18 09/02/18 06:59 18:59 Intake Total 60 Output Total 300 Balance -240 - Medications Medications: Current Medications Acetaminophen (Tylenol 650mg/20.3ml Solution Ud) 650 mg NG Q6 PRN PRN Reason: Temperature Last Admin: 08/25/18 01:06 Dose: 650 mg Acetaminophen (Tylenol 650mg/20.3ml Solution Ud) 650 mg PO Q6 PRN PRN Reason: Pain, Mild (1-3) Last Admin: 09/02/18 05:54 Dose: 650 mg Albuterol/Ipratropium (Duoneb 3 Mg/0.5 Mg (3 Ml) Ud) 3 ml INH RQ6 PRN PRN Reason: Shortness of Breath Last Admin: 08/31/18 22:00 Dose: 3 ml Amlodipine Besylate (Norvasc) 5 mg PO Q12 [facility] Last Admin: 09/02/18 09:55 Dose: 5 mg Aspirin (Aspirin Chewable) 81 mg PO DAILY [facility] Last Admin: 09/02/18 10:00 Dose: 81 mg Enoxaparin Sodium (Lovenox) 80 mg SC DAILY [facility]; Protocol Furosemide (Lasix) 40 mg IV DAILY [facility] Hydralazine HCl (Apresoline) 100 mg PO Q8 [facility] Last Admin: 09/02/18 09:49 Dose: Not Given Meropenem 500 mg/ Sodium (Chloride) 100 mls @ 100 mls/hr IVPB Q8 [facility]; Protocol Last Admin: 09/02/18 09:53 Dose: 100 mls/hr Linezolid (Zyvox 600mg/300ml D5w) 600 mg in 300 mls @ 300 mls/hr IVPB Q12 [facility]; Protocol Last Admin: 09/02/18 09:56 Dose: 300 mls/hr Propofol (Diprivan) 1,000 mg in 100 mls @ 2.376 mls/hr IV .Q24H [facility]; Protocol Stop: 09/02/18 13:57 Last Titration: 09/01/18 14:25 Dose: 10 mcg/kg/min, 4.752 mls/hr Potassium Chloride (Potassium Chloride 20 Meq/100 Ml) 100 mls @ 50 mls/hr IVPB ONCE ONE Stop: 09/02/18 11:14 Insulin Detemir (Levemir) 12 units SC DAILY [facility] Last Admin: 09/02/18 09:52 Dose: 12 unit Insulin Human Lispro (Humalog) 0 units SC [facility]; Protocol Last Admin: 09/02/18 08:20 Dose: 1 u Meclizine HCl (Antivert) 12.5 mg PO DAILY [facility] Last Admin: 08/18/18 09:27 Dose: 12.5 mg Metformin HCl (Glucophage) 1,000 mg PO BID [facility] Last Admin: 08/16/18 09:34 Dose: Not Given Metoprolol Tartrate (Lopressor) 50 mg PO Q8 [facility] Last Admin: 09/02/18 09:50 Dose: 50 mg Oxycodone/Acetaminophen (Percocet 5/325 Mg Tab) 1 tab PO Q6 PRN PRN Reason: Pain, moderate (4-7) Stop: 09/02/18 22:27 Last Admin: 08/31/18 12:14 Dose: 1 tab Pantoprazole Sodium (Protonix Susp) 40 mg NG DAILY [facility] Last Admin: 09/02/18 09:56 Dose: 40 mg Sucralfate (Carafate Oral Susp) 1 gm PO [facility] Last Admin: 08/18/18 22:07 Dose: 1 gm - Labs Labs: 09/02/18 04:25 09/02/18 04:25 PT 13.3 Seconds (9.8-13.1) H 08/25/18 05:00 INR 1.2 08/25/18 05:00 APTT 29.9 Seconds (25.6-37.1) 08/25/18 05:00 - Constitutional Appears: No Acute Distress - Eye Exam Eye Exam: Conjunctival injection - ENT Exam ENT Exam: Mucous Membranes Moist - Neck Exam Neck Exam: absent: Lymphadenopathy - Respiratory Exam Respiratory Exam: Rhonchi. absent: Chest Wall Tenderness - Cardiovascular Exam Cardiovascular Exam: absent: Gallop, JVD, Rubs - GI/Abdominal Exam GI & Abdominal Exam: Soft, Normal Bowel Sounds - Extremities Exam Extremities Exam: absent: Calf Tenderness - Back Exam Back Exam: absent: CVA tenderness (L), CVA tenderness (R) - Neurological Exam Neurological Exam: Altered - Psychiatric Exam Psychiatric exam: Flat Affect - Skin Skin Exam: absent: Cyanosis Assessment and Plan (1) [place] (acute kidney injury) Assessment & Plan: Imaging: -CT Head (08/27/18): Normal CT of the Head. -CT Head (08/23/18): Interval acute subacute infarct left [employer] distribution. No definite hemorrhage. Local mass effect identified without global mass effect appreciable. Follow-up CT or MRI advised. -CT Head (08/13/18): Age-appropriate age related neuro degenerative findings without acute intracranial changes at this time. -ECHO w/ Bubble: EF 60-65%; No ASD or PFO noted. -CXR 08/30: Vague R basilar opacity, Possible new RUL opacity and L pleural effusion, Line and tubes unchanged -CXR 08/31: Prelim: more congested impression acute kidney injury related to multifactorial including sepsis ,worsening kidney function again after period of improving,may be secondary to GI bleeding hemoglobin dropping rapidly. Severe anemia was dropping hemoglobin rule out GI bleeding was Faith Fredis Respiratory failure patient extubated yesterday and reintubated again today. VRE Sepsis [place] hypernatremia,worsening. Serum sodium 146 monitor closely patient may need to cut down the Lasix and to give H20 through the NG tube fever leukocytosis hypokalemia overall worsening of her condition. plan patient reintubated Patient to receive blood transfusion To give water through the NG tube potassium supplement Status: Acute (2) Acute gastroenteritis Status: Resolved (3) Anginal equivalent Status: Acute
[2018-09-02] MEDS: Enoxaparin 80 mg Syringe SC SCH (11:01)
--- NOTE | 2018-09-02 11:10 | CP.CCUPN ---
<Souleymane Umanamike - Last Filed: 09/02/18 10:32> CCU Subjective - Physician Review Subjective (Free Text): This is 73 y/o F admitted to ICU s/p resuscitation from Code Blue/cardiac arrest and intubated. Patient was seen and examined this morning at bedside, s/p re- intubation on 09/01 due to hypoxia/lethargy. Tm of 100.2 overnight. VS: Afebrile, 116/44, HR 80, Intubated and Mechanically ventilated: AC 10//02/03 PE: HEENT: no icterus, no gaze preference, Pupils 3 mm and reactive NECK: No JVD visible, supple, carotids equal upstroke bilat/no bruit CHEST: decreased BS at the bases, + rales R>L HEART: regular, distant, S1-S2, no rubs ABD: soft and nontender, no tympany, no guarding, no organomegaly, BS +. EXT: mildly swollen Extremities, no calf tenderness or palpable cords, distal pulses intact and symmetrical, left PICC NEURO: Intubated/Sedated SKIN: warm and dry, mottled skin lower extremities LABS: WBC: 12.2, H/H: 7.5/22.7 Plt 354 CMP: Significant for K+ 3.5, CO2 112, BUN/Cr 42/2.2 from /.4 Troponin: 1.06 EKG: NSR, T wave changes (My interpretation) Imaging: -CT Head (08/27/18): Normal CT of the Head. -CT Head (08/23/18): Interval acute subacute infarct left [employer] distribution. No definite hemorrhage. Local mass effect identified without global mass effect appreciable. Follow-up CT or MRI advised. -CT Head (08/13/18): Age-appropriate age related neuro degenerative findings without acute intracranial changes at this time. -ECHO w/ Bubble: EF 60-65%; No ASD or PFO noted. -CXR 09/02: worsening infiltrate R>L, possible nodular pneumonia on R and b/l e ffusion (interpreted by me) IMPRESSION/MAJOR PROBLEMS: S/p Cardiac Arrest, Acute resp failure Pneumonia, Aspiration Vs VAP Acute/Subacute NSTEMI VRE Bacteremia/Sepsis, Coag neg Staph [place], multifactorial GI symptoms/GB / Biliary Tract disease Pulmonary edema/Congestion DVT Anemia CVA DM-II HTN Hypokalemia PLAN: - Re-intubated on 09/01 due to hypoxia and lethargy, CXR with worsening infiltrate/pneumonia and Effusion, f/u Pulmonary Consult, F/u Bcx and sputum, C/w Lasix, monitor renal function - Worsening Troponin, on lovenox for NSTEMI, follow up Cardio recommendations (Worsening renal function) - Worsening Renal function, c/w Nephro recommendations, treating patient for DVT/NSTEMI and B/l plural effusion - Staph coag neg Bacteremia/ VRE, C/w Lisa and Linezolid as per ID, follow up further recommendations of worsening infiltrate on CXR - S/p VEEG, CT: no acute changes, MRI as per neuro to r/o causes for worsening weakness before intubation - H/H drop plus comorbidity, Transfuse 2 U pRBCs - C/w Lovenox 80mg SC daily, Aspirin 81, lasix 40mg daily - C/w Metoprolol 50 Q8H /Norvasc 5mg BID/Hydralazine 100 Q8H - C/w Insulin Leve 12 U SC daily and Lispro - C/w Protonix Case discussed with Dr. Melendez 09/02/18 10:32 CCU Objective - Vital Signs / Intake & Output Vital Signs (Last 4 hours): Vital Signs Temp Pulse Resp BP Pulse Ox 09/02/18 09:55 80 116/44 L 09/02/18 09:52 116/44 L 09/02/18 09:50 80 116/44 L 09/02/18 09:49 80 116/44 L 09/02/18 08:00 99.3 F 69 23 122/50 L 100 Intake and Output (Last 8hrs): Intake & Output 09/01/18 09/02/18 09/02/18 22:59 06:59 14:59 Intake Total 255 40 Output Total 350 300 Balance -95 -260 Weight 172 lb 9.6 oz Intake: IV 20 40 Intake, Piggyback 15 Oral 120 Free Water Flush 100 Output: Urine 350 300 Urethral (Jin) 350 300 Other: # Bowel Movements 1 - Medications Active Medications: Active Medications Generic Name Dose Route Start Last Admin Trade Name Freq PRN Reason Stop Dose Admin Acetaminophen 650 mg 08/24/18 10:29 08/25/18 01:06 Tylenol 650mg/20.3ml Solution Ud NG 650 mg Q6 PRN Administration Temperature Acetaminophen 650 mg 08/31/18 19:57 09/02/18 05:54 Tylenol 650mg/20.3ml Solution Ud PO 650 mg Q6 PRN Administration Pain, Mild (1-3) Albuterol/Ipratropium 3 ml 08/31/18 14:34 08/31/18 22:00 Duoneb 3 Mg/0.5 Mg (3 Ml) Ud INH 3 ml RQ6 PRN Administration Shortness of Breath Amlodipine Besylate 5 mg 08/22/18 21:00 09/02/18 09:55 Norvasc PO 5 mg Q12 CARMEN Administration Aspirin 81 mg 08/21/18 09:00 09/02/18 10:00 Aspirin Chewable PO 81 mg DAILY CARMEN Administration Enoxaparin Sodium 80 mg 09/02/18 09:00 Lovenox SC DAILY CARMEN Protocol Furosemide 40 mg 09/03/18 09:00 Lasix IV DAILY CARMEN Hydralazine HCl 100 mg 08/31/18 11:00 09/02/18 09:49 Apresoline PO Not Given Q8 CARMEN Meropenem 500 mg/ Sodium 100 mls @ 100 mls/hr 08/24/18 12:30 09/02/18 09:53 Chloride IVPB 100 mls/hr Q8 CARMEN Administration Protocol Linezolid 600 mg in 300 mls @ 300 mls/hr 08/27/18 13:35 09/02/18 09:56 Zyvox 600mg/300ml D5w IVPB 300 mls/hr Q12 CARMEN Administration Protocol Propofol 1,000 mg in 100 mls @ 2.376 mls/hr 09/01/18 14:00 09/01/18 14:25 Diprivan IV 09/02/18 13:57 10 mcg/kg/min .Q24H CARMEN 4.752 mls/hr Titration Protocol 5 MCG/KG/MIN Potassium Chloride 100 mls @ 50 mls/hr 09/02/18 09:15 Potassium Chloride 20 Meq/100 Ml IVPB 09/02/18 11:14 ONCE ONE Insulin Detemir 12 units 08/26/18 14:00 09/02/18 09:52 Levemir SC 12 unit DAILY CARMEN Administration Insulin Human Lispro 0 units 08/13/18 11:30 09/02/18 08:20 Humalog SC 1 u ACHS CARMEN Administration Protocol Meclizine HCl 12.5 mg 08/13/18 09:00 08/18/18 09:27 Antivert PO 12.5 mg DAILY CARMEN Administration Metformin HCl 1,000 mg 08/13/18 09:00 08/16/18 09:34 Glucophage PO Not Given BID [facility] Metoprolol Tartrate 50 mg 08/29/18 17:00 09/02/18 09:50 Lopressor PO 50 mg Q8 CARMEN Administration Oxycodone/Acetaminophen 1 tab 08/30/18 22:26 08/31/18 12:14 Percocet 5/325 Mg Tab PO 09/02/18 22:27 1 tab Q6 PRN Administration Pain, moderate (4-7) Pantoprazole Sodium 40 mg 09/01/18 14:00 09/02/18 09:56 Protonix Susp NG 40 mg DAILY CRAMEN Administration Sucralfate 1 gm 08/14/18 20:30 08/18/18 22:07 Carafate Oral Susp PO 1 gm [facility] CARMEN Administration - Patient Studies Lab Studies: Microbiology Studies 09/01/18 14:43 Gram Stain - Final Trachasp Lab Studies 09/02/18 09/02/18 09/02/18 Range/Units 05:43 04:41 04:25 WBC (4.8-10.8) K/uL RBC (3.80-5.20) Mil/uL Hgb (12.0-16.0) g/dL Hct (34.0-47.0) % MCV (81.0-99.0) fl MCH (27.0-31.0) pg MCHC (33.0-37.0) g/dL RDW (11.5-14.5) % Plt Count (130-400) K/uL MPV (7.2-11.7) fl Neut % (Auto) (50.0-75.0) % Lymph % (Auto) (20.0-40.0) % [place] % (Auto) (0.0-10.0) % Eos % (Auto) (0.0-4.0) % Baso % (Auto) (0.0-2.0) % Neut # (Auto) (1.8-7.0) K/uL Lymph # (Auto) (1.0-4.3) K/uL [place] # (Auto) (0.0-0.8) K/uL Eos # (Auto) (0.0-0.7) K/uL Baso # (Auto) (0.0-0.2) K/uL pCO2 30 L (35-45) mm/Hg pO2 95 (80-100) mm/Hg HCO3 26.8 (21-28) mmol/L ABG pH 7.53 H (7.35-7.45) ABG Total CO2 26.0 (22-28) mmol/L ABG O2 Saturation 100.9 H (95-98) % ABG O2 Content 10.5 L (15-23) ML/dL ABG Base Excess 2.4 (-2.0-3.0) mmol/L ABG Hemoglobin 7.5 L (11.7-17.4) g/dL ABG Carboxyhemoglobin 1.7 H (0.5-1.5) % POC ABG HHb (Measured) -0.9 L (0.0-5.0) % ABG Methemoglobin 0.9 (0.0-3.0) % ABG O2 Capacity 10.4 L (16-24) mL/dL Masoud Test Yes A-a O2 Difference 224.0 mm/Hg Hgb O2 Saturation 98.3 H (95.0-98.0) % Vent Mode A/c Mechanical Rate 14 FiO2 50.0 % Tidal Volume 450 PEEP 5 Sodium 144 (132-148) mmol/l Potassium 3.5 L (3.6-5.0) MMOL/L Chloride 112 H (98-107) mmol/L Carbon Dioxide 24 (22-30) mmol/L Anion Gap 12 (10-20) BUN 42 H (7-17) mg/dl Creatinine 2.2 H (0.7-1.2) mg/dl Est GFR ( Amer) 26 Est GFR (Non-Af Amer) 22 POC Glucose (mg/dL) 170 H (65-110) mg/dL Random Glucose 182 H (65-105) mg/dL Calcium 7.8 L (8.4-10.2) mg/dL Magnesium 2.0 (1.6-2.3) MG/DL Troponin I 1.0600 H* (0.00-0.120) ng/mL 09/02/18 09/01/18 09/01/18 Range/Units 04:25 21:07 17:46 WBC 12.2 H (4.8-10.8) K/uL RBC 2.45 L (3.80-5.20) Mil/uL Hgb 7.5 L (12.0-16.0) g/dL Hct 22.7 L (34.0-47.0) % MCV 92.6 (81.0-99.0) fl MCH 30.5 (27.0-31.0) pg MCHC 32.9 L (33.0-37.0) g/dL RDW 15.0 H (11.5-14.5) % Plt Count 354 (130-400) K/uL MPV 8.2 (7.2-11.7) fl Neut % (Auto) 83.4 H (50.0-75.0) % Lymph % (Auto) 7.5 L (20.0-40.0) % [place] % (Auto) 8.3 (0.0-10.0) % Eos % (Auto) 0.3 (0.0-4.0) % Baso % (Auto) 0.5 (0.0-2.0) % Neut # (Auto) 10.2 H (1.8-7.0) K/uL Lymph # (Auto) 0.9 L (1.0-4.3) K/uL [place] # (Auto) 1.0 H (0.0-0.8) K/uL Eos # (Auto) 0.0 (0.0-0.7) K/uL Baso # (Auto) 0.1 (0.0-0.2) K/uL pCO2 29 L (35-45) mm/Hg pO2 85 (80-100) mm/Hg HCO3 25.8 (21-28) mmol/L ABG pH 7.52 H (7.35-7.45) ABG Total CO2 24.6 (22-28) mmol/L ABG O2 Saturation 100.1 H (95-98) % ABG O2 Content 11.8 L (15-23) ML/dL ABG Base Excess 1.1 (-2.0-3.0) mmol/L ABG Hemoglobin 8.5 L (11.7-17.4) g/dL ABG Carboxyhemoglobin 1.6 H (0.5-1.5) % POC ABG HHb (Measured) -0.1 L (0.0-5.0) % ABG Methemoglobin 0.9 (0.0-3.0) % ABG O2 Capacity 11.8 L (16-24) mL/dL Masoud Test Yes A-a O2 Difference 235.0 mm/Hg Hgb O2 Saturation 97.6 (95.0-98.0) % Vent Mode A/c Mechanical Rate 14 FiO2 50.0 % Tidal Volume 450 PEEP 5 Sodium (132-148) mmol/l Potassium (3.6-5.0) MMOL/L Chloride (98-107) mmol/L Carbon Dioxide (22-30) mmol/L Anion Gap (10-20) BUN (7-17) mg/dl Creatinine (0.7-1.2) mg/dl Est GFR ( Amer) Est GFR (Non-Af Amer) POC Glucose (mg/dL) 287 H (65-110) mg/dL Random Glucose (65-105) mg/dL Calcium (8.4-10.2) mg/dL Magnesium (1.6-2.3) MG/DL Troponin I (0.00-0.120) ng/mL 09/01/18 09/01/18 09/01/18 Range/Units 16:27 13:24 11:26 WBC (4.8-10.8) K/uL RBC (3.80-5.20) Mil/uL Hgb (12.0-16.0) g/dL Hct (34.0-47.0) % MCV (81.0-99.0) fl MCH (27.0-31.0) pg MCHC (33.0-37.0) g/dL RDW (11.5-14.5) % Plt Count (130-400) K/uL MPV (7.2-11.7) fl Neut % (Auto) (50.0-75.0) % Lymph % (Auto) (20.0-40.0) % [place] % (Auto) (0.0-10.0) % Eos % (Auto) (0.0-4.0) % Baso % (Auto) (0.0-2.0) % Neut # (Auto) (1.8-7.0) K/uL Lymph # (Auto) (1.0-4.3) K/uL [place] # (Auto) (0.0-0.8) K/uL Eos # (Auto) (0.0-0.7) K/uL Baso # (Auto) (0.0-0.2) K/uL pCO2 (35-45) mm/Hg pO2 (80-100) mm/Hg HCO3 (21-28) mmol/L ABG pH (7.35-7.45) ABG Total CO2 (22-28) mmol/L ABG O2 Saturation (95-98) % ABG O2 Content (15-23) ML/dL ABG Base Excess (-2.0-3.0) mmol/L ABG Hemoglobin (11.7-17.4) g/dL ABG Carboxyhemoglobin (0.5-1.5) % POC ABG HHb (Measured) (0.0-5.0) % ABG Methemoglobin (0.0-3.0) % ABG O2 Capacity (16-24) mL/dL Masoud Test A-a O2 Difference mm/Hg Hgb O2 Saturation (95.0-98.0) % Vent Mode Mechanical Rate FiO2 % Tidal Volume PEEP Sodium (132-148) mmol/l Potassium (3.6-5.0) MMOL/L Chloride (98-107) mmol/L Carbon Dioxide (22-30) mmol/L Anion Gap (10-20) BUN (7-17) mg/dl Creatinine (0.7-1.2) mg/dl Est GFR ( Amer) Est GFR (Non-Af Amer) POC Glucose (mg/dL) 314 H 357 H 304 H (65-110) mg/dL Random Glucose (65-105) mg/dL Calcium (8.4-10.2) mg/dL Magnesium (1.6-2.3) MG/DL Troponin I (0.00-0.120) ng/mL Laboratory Results - last 24 hr 09/01/18 09/01/18 09/01/18 11:26 13:24 16:27 WBC RBC Hgb Hct MCV MCH MCHC RDW Plt Count MPV Neut % (Auto) Lymph % (Auto) [place] % (Auto) Eos % (Auto) Baso % (Auto) Neut # (Auto) Lymph # (Auto) [place] # (Auto) Eos # (Auto) Baso # (Auto) pCO2 pO2 HCO3 ABG pH ABG Total CO2 ABG O2 Saturation ABG O2 Content ABG Base Excess ABG Hemoglobin ABG Carboxyhemoglobin POC ABG HHb (Measured) ABG Methemoglobin ABG O2 Capacity Masoud Test A-a O2 Difference Hgb O2 Saturation Vent Mode Mechanical Rate FiO2 Tidal Volume PEEP Sodium Potassium Chloride Carbon Dioxide Anion Gap BUN Creatinine Est GFR ( Amer) Est GFR (Non-Af Amer) POC Glucose (mg/dL) 304 H 357 H 314 H Random Glucose Calcium Magnesium Troponin I 09/01/18 09/01/18 09/02/18 17:46 21:07 04:25 WBC 12.2 H RBC 2.45 L Hgb 7.5 L Hct 22.7 L MCV 92.6 MCH 30.5 MCHC 32.9 L RDW 15.0 H Plt Count 354 MPV 8.2 Neut % (Auto) 83.4 H Lymph % (Auto) 7.5 L [place] % (Auto) 8.3 Eos % (Auto) 0.3 Baso % (Auto) 0.5 Neut # (Auto) 10.2 H Lymph # (Auto) 0.9 L [place] # (Auto) 1.0 H Eos # (Auto) 0.0 Baso # (Auto) 0.1 pCO2 29 L pO2 85 HCO3 25.8 ABG pH 7.52 H ABG Total CO2 24.6 ABG O2 Saturation 100.1 H ABG O2 Content 11.8 L ABG Base Excess 1.1 ABG Hemoglobin 8.5 L ABG Carboxyhemoglobin 1.6 H POC ABG HHb (Measured) -0.1 L ABG Methemoglobin 0.9 ABG O2 Capacity 11.8 L Masoud Test Yes A-a O2 Difference 235.0 Hgb O2 Saturation 97.6 Vent Mode A/c Mechanical Rate 14 FiO2 50.0 Tidal Volume 450 PEEP 5 Sodium Potassium Chloride Carbon Dioxide Anion Gap BUN Creatinine Est GFR ( Amer) Est GFR (Non-Af Amer) POC Glucose (mg/dL) 287 H Random Glucose Calcium Magnesium Troponin I 09/02/18 09/02/18 09/02/18 04:25 04:41 05:43 WBC RBC Hgb Hct MCV MCH MCHC RDW Plt Count MPV Neut % (Auto) Lymph % (Auto) [place] % (Auto) Eos % (Auto) Baso % (Auto) Neut # (Auto) Lymph # (Auto) [place] # (Auto) Eos # (Auto) Baso # (Auto) pCO2 30 L pO2 95 HCO3 26.8 ABG pH 7.53 H ABG Total CO2 26.0 ABG O2 Saturation 100.9 H ABG O2 Content 10.5 L ABG Base Excess 2.4 ABG Hemoglobin 7.5 L ABG Carboxyhemoglobin 1.7 H POC ABG HHb (Measured) -0.9 L ABG Methemoglobin 0.9 ABG O2 Capacity 10.4 L Masoud Test Yes A-a O2 Difference 224.0 Hgb O2 Saturation 98.3 H Vent Mode A/c Mechanical Rate 14 FiO2 50.0 Tidal Volume 450 PEEP 5 Sodium 144 Potassium 3.5 L Chloride 112 H Carbon Dioxide 24 Anion Gap 12 BUN 42 H Creatinine 2.2 H Est GFR ( Amer) 26 Est GFR (Non-Af Amer) 22 POC Glucose (mg/dL) 170 H Random Glucose 182 H Calcium 7.8 L Magnesium 2.0 Troponin I 1.0600 H* EKG/Cardiology Studies: Cardiology / EKG Studies 09/02/18 06:00 EKG [ELECTROCARDIOGRAM] Routine Comment: Mode Of Transportation: Reason For Exam: NSTEMI Fingerstick Blood Sugar Results: 170 <Morgan Melendez - Last Filed: 09/02/18 14:10> CCU Subjective - Physician Review Subjective (Free Text): Attestation: Patient seen and examined at the bedside with Resident Dr. uJd Umana; and I agree with his outline of plans and management documented above and below, reflecting my review of all applicable clinical data, and participation in the care of the patient throughout the day in ICU; today, September 02, 2018.
[2018-09-02 12:01] LABS: SQUAMOUS EPITHIAL 1 /hpf (0-5); URINE BACTERIA OCC (<OCC); URINE BILIRUBIN NEGATIVE (NEGATIVE); URINE BLOOD SMALL (NEGATIVE); URINE CLARITY CLOUDY (Clear); URINE COLOR YELLOW (YELLOW); URINE GLUCOSE (UA) NEG (NEGATIVE); URINE LEUKOCYTE ESTERASE LARGE Leu/uL (Negative); URINE PROTEIN 30 mg/dL (NEGATIVE); URINE UROBILINOGEN 0.2-1.0 mg/dL (0.2-1.0)
--- NOTE | 2018-09-02 13:52 | CP.PCM.PN ---
Subjective - Date & Time of Evaluation Date of Evaluation: 09/02/18 Time of Evaluation: 08:00 - Subjective Subjective: reintubated febrile IV rx adjusted Myamine added has infilltrates sputum c/s repeated Objective - Vital Signs/Intake and Output Vital Signs (last 24 hours): Temp Pulse Resp BP Pulse Ox 99.2 F 67 19 116/49 L 97 09/02/18 12:00 09/02/18 12:00 09/02/18 12:00 09/02/18 12:00 09/02/18 12:00 Intake and Output: 09/02/18 09/02/18 06:59 18:59 Intake Total 60 890 Output Total 300 150 Balance -240 740 - Medications Medications: Current Medications Acetaminophen (Tylenol 650mg/20.3ml Solution Ud) 650 mg NG Q6 PRN PRN Reason: Temperature Last Admin: 08/25/18 01:06 Dose: 650 mg Acetaminophen (Tylenol 650mg/20.3ml Solution Ud) 650 mg PO Q6 PRN PRN Reason: Pain, Mild (1-3) Last Admin: 09/02/18 05:54 Dose: 650 mg Albuterol/Ipratropium (Duoneb 3 Mg/0.5 Mg (3 Ml) Ud) 3 ml INH RQ6 PRN PRN Reason: Shortness of Breath Last Admin: 08/31/18 22:00 Dose: 3 ml Amlodipine Besylate (Norvasc) 5 mg PO Q12 CARMEN Last Admin: 09/02/18 09:55 Dose: 5 mg Aspirin (Aspirin Chewable) 81 mg PO DAILY [facility] Last Admin: 09/02/18 10:00 Dose: 81 mg Enoxaparin Sodium (Lovenox) 80 mg SC DAILY CARMEN; Protocol Last Admin: 09/02/18 11:01 Dose: 80 mg Furosemide (Lasix) 40 mg IV DAILY CARMEN Hydralazine HCl (Apresoline) 100 mg PO Q8 CARMEN Last Admin: 09/02/18 09:49 Dose: Not Given Meropenem 500 mg/ Sodium (Chloride) 100 mls @ 100 mls/hr IVPB Q8 CARMEN; Protocol Last Admin: 09/02/18 09:53 Dose: 100 mls/hr Linezolid (Zyvox 600mg/300ml D5w) 600 mg in 300 mls @ 300 mls/hr IVPB Q12 CARMEN; Protocol Last Admin: 09/02/18 09:56 Dose: 300 mls/hr Propofol (Diprivan) 1,000 mg in 100 mls @ 2.376 mls/hr IV .Q24H [facility]; Protocol Stop: 09/02/18 13:57 Last Titration: 09/01/18 14:25 Dose: 10 mcg/kg/min, 4.752 mls/hr Micafungin Sodium 100 mg/ (Sodium Chloride) 100 mls @ 100 mls/hr IV DAILY [facility]; Protocol Stop: 09/02/18 14:59 Insulin Detemir (Levemir) 12 units SC DAILY [facility] Last Admin: 09/02/18 09:52 Dose: 12 unit Insulin Human Lispro (Humalog) 0 units SC [facility]; Protocol Last Admin: 09/02/18 11:57 Dose: 2 u Meclizine HCl (Antivert) 12.5 mg PO DAILY [facility] Last Admin: 08/18/18 09:27 Dose: 12.5 mg Metformin HCl (Glucophage) 1,000 mg PO BID [facility] Last Admin: 08/16/18 09:34 Dose: Not Given Metoprolol Tartrate (Lopressor) 50 mg PO Q6 [facility] Oxycodone/Acetaminophen (Percocet 5/325 Mg Tab) 1 tab PO Q6 PRN PRN Reason: Pain, moderate (4-7) Stop: 09/02/18 22:27 Last Admin: 08/31/18 12:14 Dose: 1 tab Pantoprazole Sodium (Protonix Susp) 40 mg NG DAILY [facility] Last Admin: 09/02/18 09:56 Dose: 40 mg Sucralfate (Carafate Oral Susp) 1 gm PO [facility] Last Admin: 08/18/18 22:07 Dose: 1 gm - Labs Labs: 09/02/18 04:25 09/02/18 04:25 PT 13.3 Seconds (9.8-13.1) H 08/25/18 05:00 INR 1.2 08/25/18 05:00 APTT 29.9 Seconds (25.6-37.1) 08/25/18 05:00 - Constitutional Appears: Confused, Chronically Ill - Head Exam Head Exam: NORMOCEPHALIC - Eye Exam Eye Exam: absent: Scleral icterus - ENT Exam ENT Exam: Mucous Membranes Dry - Neck Exam Neck Exam: absent: Lymphadenopathy - Respiratory Exam Respiratory Exam: Decreased Breath Sounds, Rhonchi - Cardiovascular Exam Cardiovascular Exam: REGULAR RHYTHM, +S1, +S2 - GI/Abdominal Exam GI & Abdominal Exam: Distended. absent: Tenderness - Rectal Exam Rectal Exam: Deferred - Exam Exam: NORMAL INSPECTION - Extremities Exam Extremities Exam: Pedal Edema - Back Exam Back Exam: absent: CVA tenderness (L), CVA tenderness (R) - Neurological Exam Neurological Exam: Altered - Psychiatric Exam Psychiatric exam: Depressed Assessment and Plan (1) Dehydration Status: Acute (2) NSTEMI (non-ST elevated myocardial infarction) Status: Acute (3) Nausea & vomiting Status: Resolved (4) Type 2 diabetes mellitus with hyperglycemia Status: Chronic (5) Abdominal pain Status: Acute (6) Gallbladder disease Status: Acute (7) Pneumonia Status: Acute - Assessment and Plan (Free Text) Assessment: cont rx sepsios resp failure pneumonia repeat cultures sent
[2018-09-02] MEDS ORDERED: Micafungin 100 MG in Sodium Chloride 0.9% 100 ML IV SCH (14:00)
--- NOTE | 2018-09-02 15:50 | CP.PCM.CON ---
History of Present Illness - History of Present Illness History of Present Illness: Pulmonary consult for a 73 y/o F admitted in ICU with Acute Respiratory Failure, PNA, S/P cardiac Arrest, also found with NSTEMI, DVT, Pt PMHx: HTN, DMII, Gastritis, falls, admitted to [facility] on 08/12/18 with abdominal pain, associated to nausea/vomiting, as per ID, with possible acute Cholecystitis. 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 Pt was being transferred to ICU when minutes later, she developed another Code Blue, found with BP 60/38, HR 40's, Tx with Epinephrine, intubated and placed in ICU S/P Cardiac arrest. On 08/30/18, Pt was extubated due to improvement in medical condition, but in 09/01/18, Pt was re-intubated due to hypoxia, lethargic, CXR showing worsening infiltrate/PNA and b/l pleural effusion. Worsening symptom: Fever 100.2 Aggravated factor: Unable to answer questions. Chest CT on 09/01/17 showed: Moderate to large b/l pleural effusion, b/l upper lobe infiltrate R>L, b/l lower lobe extensive compressive atelectasis. Cardiomegaly. Ext U-S: DVT R mid and distal superficial femoral artery. Abd/Pelv U-S: No acute finding. Hepatic Steatosis reiterated. Echo: EF 60-65%, No ASD or PFO noted. Review of Systems - Review of Systems Systems not reviewed;Unavailable: Acuity of Condition, Intubated Past Patient History - Past Medical History & Family History Past Medical History?: Yes Past Family History: Reviewed and not pertinent - Past Social History Smoking Status: Never Smoked Alcohol: None Drugs: Denies Home Situation {Lives}: With Family - CARDIAC Hx Cardiac Disorders: Yes Hx Hypertension: Yes Hx Pacemaker: No - PULMONARY Hx Respiratory Disorders: No - NEUROLOGICAL Hx Neurological Disorder: Yes Hx Dizziness: Yes - HEENT Hx HEENT Problems: No - RENAL Hx Chronic Kidney Disease: No - ENDOCRINE/METABOLIC Hx Endocrine Disorders: Yes Hx Diabetes Mellitus Type 2: Yes - HEMATOLOGICAL/ONCOLOGICAL Hx Blood Disorders: No Hx Cancer: No - INTEGUMENTARY Hx Dermatological Problems: No - MUSCULOSKELETAL/RHEUMATOLOGICAL Hx Musculoskeletal Disorders: Yes Hx Falls: Yes - GASTROINTESTINAL Hx Gastrointestinal Disorders: Yes Hx Gastritis: Yes - GENITOURINARY/GYNECOLOGICAL Hx Genitourinary Disorders: No - PSYCHIATRIC Hx Psychophysiologic Disorder: No Hx Substance Use: No - SURGICAL HISTORY Hx Surgeries: No Hx Mastectomy: No - ANESTHESIA Hx Anesthesia: No Meds Allergies/Adverse Reactions: Allergies Allergy/AdvReac Type Severity Reaction Status Date / Time No Known Allergies Allergy Verified 09/20/17 08:57 - Medications Medications: Current Medications Acetaminophen (Tylenol 650mg/20.3ml Solution Ud) 650 mg NG Q6 PRN PRN Reason: Temperature Last Admin: 08/25/18 01:06 Dose: 650 mg Acetaminophen (Tylenol 650mg/20.3ml Solution Ud) 650 mg PO Q6 PRN PRN Reason: Pain, Mild (1-3) Last Admin: 09/02/18 05:54 Dose: 650 mg Albuterol/Ipratropium (Duoneb 3 Mg/0.5 Mg (3 Ml) Ud) 3 ml INH RQ6 PRN PRN Reason: Shortness of Breath Last Admin: 08/31/18 22:00 Dose: 3 ml Amlodipine Besylate (Norvasc) 5 mg PO Q12 [facility] Last Admin: 09/02/18 09:55 Dose: 5 mg Aspirin (Aspirin Chewable) 81 mg PO DAILY [facility] Last Admin: 09/02/18 10:00 Dose: 81 mg Enoxaparin Sodium (Lovenox) 80 mg SC DAILY [facility]; Protocol Last Admin: 09/02/18 11:01 Dose: 80 mg Furosemide (Lasix) 40 mg IV DAILY [facility] Hydralazine HCl (Apresoline) 100 mg PO Q8 [facility] Last Admin: 09/02/18 09:49 Dose: Not Given Meropenem 500 mg/ Sodium (Chloride) 100 mls @ 100 mls/hr IVPB Q8 [facility]; Protocol Last Admin: 09/02/18 09:53 Dose: 100 mls/hr Linezolid (Zyvox 600mg/300ml D5w) 600 mg in 300 mls @ 300 mls/hr IVPB Q12 [facility]; Protocol Last Admin: 09/02/18 09:56 Dose: 300 mls/hr Insulin Detemir (Levemir) 12 units SC DAILY [facility] Last Admin: 09/02/18 09:52 Dose: 12 unit Insulin Human Lispro (Humalog) 0 units SC [facility]; Protocol Last Admin: 09/02/18 11:57 Dose: 2 u Meclizine HCl (Antivert) 12.5 mg PO DAILY [facility] Last Admin: 08/18/18 09:27 Dose: 12.5 mg Metformin HCl (Glucophage) 1,000 mg PO BID [facility] Last Admin: 08/16/18 09:34 Dose: Not Given Metoprolol Tartrate (Lopressor) 50 mg PO Q6 [facility] Oxycodone/Acetaminophen (Percocet 5/325 Mg Tab) 1 tab PO Q6 PRN PRN Reason: Pain, moderate (4-7) Stop: 09/02/18 22:27 Last Admin: 08/31/18 12:14 Dose: 1 tab Pantoprazole Sodium (Protonix Susp) 40 mg NG DAILY [facility] Last Admin: 09/02/18 09:56 Dose: 40 mg Sucralfate (Carafate Oral Susp) 1 gm PO [facility] Last Admin: 08/18/18 22:07 Dose: 1 gm Physical Exam - Constitutional Appears: Other (Intubated) - Head Exam Head Exam: NORMAL INSPECTION - Eye Exam Eye Exam: PERRL - ENT Exam Additional comments: Intubated, OG tube - Neck Exam Neck exam: Positive for: Normal Inspection - Respiratory Exam Respiratory Exam: Decreased Breath Sounds (b/l), Rhonchi (b/l) - Cardiovascular Exam Cardiovascular Exam: REGULAR RHYTHM, Systolic Murmur - GI/Abdominal Exam GI & Abdominal Exam: Soft. absent: Distended, Tenderness - Exam Additional comments: Jin Cath - Extremities Exam Additional comments: edema 1+ U/E L/E - Neurological Exam Additional comments: Intubated . sedated - Skin Skin Exam: Warm Results - Vital Signs Recent Vital Signs: Last Vital Signs Temp 99.6 F 09/02/18 15:38 Pulse 92 H 09/02/18 15:38 Resp 22 09/02/18 15:38 BP 146/63 09/02/18 15:38 Pulse Ox 95 09/02/18 15:00 reviewed Mirza - Labs Result Diagrams: 09/06/18 04:30 09/06/18 04:30 Labs: Laboratory Results - last 24 hr 09/01/18 09/01/18 09/01/18 16:27 16:45 17:46 WBC RBC Hgb Hct MCV MCH MCHC RDW Plt Count MPV Neut % (Auto) Lymph % (Auto) [place] % (Auto) Eos % (Auto) Baso % (Auto) Neut # (Auto) Lymph # (Auto) [place] # (Auto) Eos # (Auto) Baso # (Auto) pCO2 29 L pO2 85 HCO3 25.8 ABG pH 7.52 H ABG Total CO2 24.6 ABG O2 Saturation 100.1 H ABG O2 Content 11.8 L ABG Base Excess 1.1 ABG Hemoglobin 8.5 L ABG Carboxyhemoglobin 1.6 H POC ABG HHb (Measured) -0.1 L ABG Methemoglobin 0.9 ABG O2 Capacity 11.8 L Masoud Test Yes A-a O2 Difference 235.0 Hgb O2 Saturation 97.6 Vent Mode A/c Mechanical Rate 14 FiO2 50.0 Tidal Volume 450 PEEP 5 Sodium Potassium Chloride Carbon Dioxide Anion Gap BUN Creatinine Est GFR ( Amer) Est GFR (Non-Af Amer) POC Glucose (mg/dL) 314 H Random Glucose Calcium Magnesium Troponin I Urine Color Urine Clarity Urine pH Ur Specific [place] Urine Protein Urine Glucose (UA) Urine Ketones Urine Blood Urine Nitrate Urine Bilirubin Urine Urobilinogen Ur Leukocyte Esterase Urine RBC (Auto) Urine Microscopic WBC Ur Squamous Epith Cells Urine Bacteria Hyaline Casts Urine Yeast (Budding) Ur L.pneumophila Ag Negative Blood Type Antibody Screen Crossmatch BBK History Checked 09/01/18 09/02/18 09/02/18 21:07 04:25 04:25 WBC 12.2 H RBC 2.45 L Hgb 7.5 L Hct 22.7 L MCV 92.6 MCH 30.5 MCHC 32.9 L RDW 15.0 H Plt Count 354 MPV 8.2 Neut % (Auto) 83.4 H Lymph % (Auto) 7.5 L [place] % (Auto) 8.3 Eos % (Auto) 0.3 Baso % (Auto) 0.5 Neut # (Auto) 10.2 H Lymph # (Auto) 0.9 L [place] # (Auto) 1.0 H Eos # (Auto) 0.0 Baso # (Auto) 0.1 pCO2 pO2 HCO3 ABG pH ABG Total CO2 ABG O2 Saturation ABG O2 Content ABG Base Excess ABG Hemoglobin ABG Carboxyhemoglobin POC ABG HHb (Measured) ABG Methemoglobin ABG O2 Capacity Masoud Test A-a O2 Difference Hgb O2 Saturation Vent Mode Mechanical Rate FiO2 Tidal Volume PEEP Sodium 144 Potassium 3.5 L Chloride 112 H Carbon Dioxide 24 Anion Gap 12 BUN 42 H Creatinine 2.2 H Est GFR ( Amer) 26 Est GFR (Non-Af Amer) 22 POC Glucose (mg/dL) 287 H Random Glucose 182 H Calcium 7.8 L Magnesium 2.0 Troponin I 1.0600 H* Urine Color Urine Clarity Urine pH Ur Specific [place] Urine Protein Urine Glucose (UA) Urine Ketones Urine Blood Urine Nitrate Urine Bilirubin Urine Urobilinogen Ur Leukocyte Esterase Urine RBC (Auto) Urine Microscopic WBC Ur Squamous Epith Cells Urine Bacteria Hyaline Casts Urine Yeast (Budding) Ur L.pneumophila Ag Blood Type Antibody Screen Crossmatch BBK History Checked 09/02/18 09/02/18 09/02/18 04:41 05:43 10:15 WBC RBC Hgb Hct MCV MCH MCHC RDW Plt Count MPV Neut % (Auto) Lymph % (Auto) [place] % (Auto) Eos % (Auto) Baso % (Auto) Neut # (Auto) Lymph # (Auto) [place] # (Auto) Eos # (Auto) Baso # (Auto) pCO2 30 L pO2 95 HCO3 26.8 ABG pH 7.53 H ABG Total CO2 26.0 ABG O2 Saturation 100.9 H ABG O2 Content 10.5 L ABG Base Excess 2.4 ABG Hemoglobin 7.5 L ABG Carboxyhemoglobin 1.7 H POC ABG HHb (Measured) -0.9 L ABG Methemoglobin 0.9 ABG O2 Capacity 10.4 L Masoud Test Yes A-a O2 Difference 224.0 Hgb O2 Saturation 98.3 H Vent Mode A/c Mechanical Rate 14 FiO2 50.0 Tidal Volume 450 PEEP 5 Sodium Potassium Chloride Carbon Dioxide Anion Gap BUN Creatinine Est GFR ( Amer) Est GFR (Non-Af Amer) POC Glucose (mg/dL) 170 H Random Glucose Calcium Magnesium Troponin I Urine Color Urine Clarity Urine pH Ur Specific [place] Urine Protein Urine Glucose (UA) Urine Ketones Urine Blood Urine Nitrate Urine Bilirubin Urine Urobilinogen Ur Leukocyte Esterase Urine RBC (Auto) Urine Microscopic WBC Ur Squamous Epith Cells Urine Bacteria Hyaline Casts Urine Yeast (Budding) Ur L.pneumophila Ag Blood Type O POSITIVE Antibody Screen Negative Crossmatch See Detail BBK History Checked Patient has bt 09/02/18 09/02/18 09/02/18 11:00 11:00 11:21 WBC RBC Hgb Hct MCV MCH MCHC RDW Plt Count MPV Neut % (Auto) Lymph % (Auto) [place] % (Auto) Eos % (Auto) Baso % (Auto) Neut # (Auto) Lymph # (Auto) [place] # (Auto) Eos # (Auto) Baso # (Auto) pCO2 pO2 HCO3 ABG pH ABG Total CO2 ABG O2 Saturation ABG O2 Content ABG Base Excess ABG Hemoglobin ABG Carboxyhemoglobin POC ABG HHb (Measured) ABG Methemoglobin ABG O2 Capacity Masoud Test A-a O2 Difference Hgb O2 Saturation Vent Mode Mechanical Rate FiO2 Tidal Volume PEEP Sodium Potassium Chloride Carbon Dioxide Anion Gap BUN Creatinine Est GFR ( Amer) Est GFR (Non-Af Amer) POC Glucose (mg/dL) 225 H Random Glucose Calcium Magnesium Troponin I 1.1800 H* Urine Color Yellow Urine Clarity Cloudy Urine pH 5.0 Ur Specific [place] 1.017 Urine Protein 30 Urine Glucose (UA) Neg Urine Ketones Negative Urine Blood Small Urine Nitrate Negative Urine Bilirubin Negative Urine Urobilinogen 0.2-1.0 Ur Leukocyte Esterase Large Urine RBC (Auto) 7 H Urine Microscopic WBC 15 H Ur Squamous Epith Cells 1 Urine Bacteria Occ H Hyaline Casts 6-10 H Urine Yeast (Budding) Many H Ur L.pneumophila Ag Blood Type Antibody Screen Crossmatch BBK History Checked reviewed J.P. - EKG Data EKG comments: reviewed J.P. - Impressions Impression: Echo": Reviewed J.P. - Imaging and Cardiology CT scan - chest Status: Report reviewed by me (J.P.) Chest x-ray Status: Report reviewed by me (J.P.) CT scan - abdomen Status: Report reviewed by me (J.P.) CT scan - pelvis Status: Report reviewed by me (J.P.) Venous US Status: Report reviewed by me (J.P.) CT scan - head Status: Report reviewed by me (J.P.) Assessment & Plan (1) Acute respiratory failure Status: Acute Priority: High (2) Cardiac arrest Status: Acute Priority: High (3) Aspiration pneumonia Status: Acute Priority: High (4) Pleural effusion Status: Acute Priority: High (5) Atelectasis of both lungs Assessment and Plan: Lower lobes 2nd to Pleural effusions Status: Acute (6) NSTEMI (non-ST elevated myocardial infarction) Status: Acute Priority: High (7) CHF (congestive heart failure) Status: Acute (8) DVT (deep venous thrombosis) Status: Acute Priority: High (9) Severe anemia Status: Acute - Assessment and Plan (Free Text) Plan: Continue Ventilatory support, Zyvox, Merren, Duoneb and rest of Tx. Attempt of weaning, to have PRBC, CT Chest Mod. to large B/L Pleural effusions with B/L LL Atelectasis,may need IR evaluation for Thoracentesis if no improvement, monitor serial CXR Critical care time: 55 min. - Date & Time Date: 09/02/18 Time: 11:30
[2018-09-02] MEDS: Propofol 10 mg/ml 1,000 MG/100 ML VIAL IV SCH (23:46)
[2018-09-03] MEDS: Meropenem 500 MG in Sodium Chloride 0.9% 100 ML IVPB SCH ×3 (00:03→16:10)
[2018-09-03 05:05] LABS: ABG ALLEN TEST YES; ARTERIAL BLOOD GAS HCO3 23.3 mmol/L (21-28); ARTERIAL BLOOD GAS HEMOGLOBIN 11.7 g/dL (11.7-17.4); ARTERIAL BLOOD GAS O2 CAPACITY 15.9 mL/dL (16-24); ARTERIAL BLOOD GAS O2 CONTENT 14.1 ML/dL (15-23); ARTERIAL BLOOD GAS O2 SAT 88.6 % (95-98); ARTERIAL BLOOD GAS PCO2 32 mm/Hg (35-45); ARTERIAL BLOOD GAS PH 7.44 (7.35-7.45); ARTERIAL BLOOD GAS PO2 50 mm/Hg (80-100); ARTERIAL BLOOD GAS TCO2 22.7 mmol/L (22-28)
--- NOTE | 2018-09-03 07:13 | CP.PCM.PN ---
Subjective - Date & Time of Evaluation Date of Evaluation: 08/28/18 Time of Evaluation: 07:10 Objective - Vital Signs/Intake and Output Vital Signs (last 24 hours): Temp Pulse Resp BP Pulse Ox 99.3 F 75 31 H 173/76 H 99 09/03/18 05:00 09/03/18 06:00 09/03/18 06:00 09/03/18 06:00 09/03/18 06:00 Intake and Output: 09/03/18 09/03/18 06:59 18:59 Intake Total 1969 Output Total 800 Balance 1169 - Medications Medications: Current Medications Acetaminophen (Tylenol 650mg/20.3ml Solution Ud) 650 mg NG Q6 PRN PRN Reason: Temperature Last Admin: 08/25/18 01:06 Dose: 650 mg Acetaminophen (Tylenol 650mg/20.3ml Solution Ud) 650 mg PO Q6 PRN PRN Reason: Pain, Mild (1-3) Last Admin: 09/02/18 05:54 Dose: 650 mg Albuterol/Ipratropium (Duoneb 3 Mg/0.5 Mg (3 Ml) Ud) 3 ml INH RQ6 PRN PRN Reason: Shortness of Breath Last Admin: 08/31/18 22:00 Dose: 3 ml Amlodipine Besylate (Norvasc) 5 mg PO Q12 [facility] Last Admin: 09/02/18 21:23 Dose: 5 mg Aspirin (Aspirin Chewable) 81 mg PO DAILY [facility] Last Admin: 09/02/18 10:00 Dose: 81 mg Enoxaparin Sodium (Lovenox) 80 mg SC DAILY [facility]; Protocol Last Admin: 09/02/18 11:01 Dose: 80 mg Furosemide (Lasix) 40 mg IV DAILY [facility] Hydralazine HCl (Apresoline) 100 mg PO Q8 [facility] Last Admin: 09/03/18 00:04 Dose: 100 mg Meropenem 500 mg/ Sodium (Chloride) 100 mls @ 100 mls/hr IVPB Q8 [facility]; Protocol Last Admin: 09/03/18 00:03 Dose: 100 mls/hr Linezolid (Zyvox 600mg/300ml D5w) 600 mg in 300 mls @ 300 mls/hr IVPB Q12 [facility]; Protocol Last Admin: 09/02/18 22:18 Dose: 300 mls/hr Propofol (Diprivan) 1,000 mg in 100 mls @ 7.046 mls/hr IV .[id number] [facility]; Protocol Stop: 09/03/18 23:45 Last Titration: 09/03/18 01:36 Dose: 10 mcg/kg/min, 4.697 mls/hr Insulin Detemir (Levemir) 12 units SC DAILY [facility] Last Admin: 09/02/18 09:52 Dose: 12 unit Insulin Human Lispro (Humalog) 0 units SC [facility]; Protocol Last Admin: 09/02/18 21:39 Dose: Not Given Meclizine HCl (Antivert) 12.5 mg PO DAILY [facility] Last Admin: 08/18/18 09:27 Dose: 12.5 mg Metformin HCl (Glucophage) 1,000 mg PO BID [facility] Last Admin: 08/16/18 09:34 Dose: Not Given Metoprolol Tartrate (Lopressor) 50 mg PO Q6 [facility] Last Admin: 09/03/18 04:14 Dose: 50 mg Pantoprazole Sodium (Protonix Susp) 40 mg NG DAILY [facility] Last Admin: 09/02/18 09:56 Dose: 40 mg Sucralfate (Carafate Oral Susp) 1 gm PO [facility] Last Admin: 08/18/18 22:07 Dose: 1 gm - Labs Labs: 09/02/18 04:25 09/02/18 04:25 PT 13.3 Seconds (9.8-13.1) H 08/25/18 05:00 INR 1.2 08/25/18 05:00 APTT 29.9 Seconds (25.6-37.1) 08/25/18 05:00 Assessment and Plan (1) Acute gastroenteritis Status: Resolved (2) Hypertensive urgency Status: Resolved (3) Abdominal pain in female Status: Resolved (4) Type 2 diabetes mellitus with hyperglycemia Status: Chronic (5) NSTEMI (non-ST elevated myocardial infarction) Status: Acute (6) Gallbladder disease Status: Acute (7) AURORA (acute kidney injury) Status: Acute (8) Cardiac arrest Status: Acute (9) Acute respiratory failure Status: Acute (10) DVT (deep venous thrombosis) Status: Acute (11) Severe anemia Status: Acute (12) Aspiration pneumonia Status: Acute
--- NOTE | 2018-09-03 07:14 | CP.PCM.PN ---
Subjective - Date & Time of Evaluation Date of Evaluation: 08/29/18 Time of Evaluation: 07:20 Objective - Vital Signs/Intake and Output Vital Signs (last 24 hours): Temp Pulse Resp BP Pulse Ox 99.3 F 75 31 H 173/76 H 99 09/03/18 05:00 09/03/18 06:00 09/03/18 06:00 09/03/18 06:00 09/03/18 06:00 Intake and Output: 09/03/18 09/03/18 06:59 18:59 Intake Total 1969 Output Total 800 Balance 1169 - Medications Medications: Current Medications Acetaminophen (Tylenol 650mg/20.3ml Solution Ud) 650 mg NG Q6 PRN PRN Reason: Temperature Last Admin: 08/25/18 01:06 Dose: 650 mg Acetaminophen (Tylenol 650mg/20.3ml Solution Ud) 650 mg PO Q6 PRN PRN Reason: Pain, Mild (1-3) Last Admin: 09/02/18 05:54 Dose: 650 mg Albuterol/Ipratropium (Duoneb 3 Mg/0.5 Mg (3 Ml) Ud) 3 ml INH RQ6 PRN PRN Reason: Shortness of Breath Last Admin: 08/31/18 22:00 Dose: 3 ml Amlodipine Besylate (Norvasc) 5 mg PO Q12 [facility] Last Admin: 09/02/18 21:23 Dose: 5 mg Aspirin (Aspirin Chewable) 81 mg PO DAILY [facility] Last Admin: 09/02/18 10:00 Dose: 81 mg Enoxaparin Sodium (Lovenox) 80 mg SC DAILY [facility]; Protocol Last Admin: 09/02/18 11:01 Dose: 80 mg Furosemide (Lasix) 40 mg IV DAILY [facility] Hydralazine HCl (Apresoline) 100 mg PO Q8 [facility] Last Admin: 09/03/18 00:04 Dose: 100 mg Meropenem 500 mg/ Sodium (Chloride) 100 mls @ 100 mls/hr IVPB Q8 [facility]; Protocol Last Admin: 09/03/18 00:03 Dose: 100 mls/hr Linezolid (Zyvox 600mg/300ml D5w) 600 mg in 300 mls @ 300 mls/hr IVPB Q12 [facility]; Protocol Last Admin: 09/02/18 22:18 Dose: 300 mls/hr Propofol (Diprivan) 1,000 mg in 100 mls @ 7.046 mls/hr IV .[id number] [facility]; Protocol Stop: 09/03/18 23:45 Last Titration: 09/03/18 01:36 Dose: 10 mcg/kg/min, 4.697 mls/hr Insulin Detemir (Levemir) 12 units SC DAILY [facility] Last Admin: 09/02/18 09:52 Dose: 12 unit Insulin Human Lispro (Humalog) 0 units SC [facility]; Protocol Last Admin: 09/02/18 21:39 Dose: Not Given Meclizine HCl (Antivert) 12.5 mg PO DAILY [facility] Last Admin: 08/18/18 09:27 Dose: 12.5 mg Metformin HCl (Glucophage) 1,000 mg PO BID [facility] Last Admin: 08/16/18 09:34 Dose: Not Given Metoprolol Tartrate (Lopressor) 50 mg PO Q6 [facility] Last Admin: 09/03/18 04:14 Dose: 50 mg Pantoprazole Sodium (Protonix Susp) 40 mg NG DAILY [facility] Last Admin: 09/02/18 09:56 Dose: 40 mg Sucralfate (Carafate Oral Susp) 1 gm PO [facility] Last Admin: 08/18/18 22:07 Dose: 1 gm - Labs Labs: 09/02/18 04:25 09/02/18 04:25 PT 13.3 Seconds (9.8-13.1) H 08/25/18 05:00 INR 1.2 08/25/18 05:00 APTT 29.9 Seconds (25.6-37.1) 08/25/18 05:00 Assessment and Plan (1) Acute gastroenteritis Status: Resolved (2) Hypertensive urgency Status: Resolved (3) Abdominal pain in female Status: Resolved (4) Type 2 diabetes mellitus with hyperglycemia Status: Chronic (5) NSTEMI (non-ST elevated myocardial infarction) Status: Acute (6) Gallbladder disease Status: Acute (7) AURORA (acute kidney injury) Status: Acute (8) Cardiac arrest Status: Acute (9) Acute respiratory failure Status: Acute (10) DVT (deep venous thrombosis) Status: Acute (11) Severe anemia Status: Acute (12) Aspiration pneumonia Status: Acute
--- NOTE | 2018-09-03 07:15 | CP.PCM.PN ---
Subjective - Date & Time of Evaluation Date of Evaluation: 08/31/18 Time of Evaluation: 07:05 Objective - Vital Signs/Intake and Output Vital Signs (last 24 hours): Temp Pulse Resp BP Pulse Ox 99.3 F 75 31 H 173/76 H 99 09/03/18 05:00 09/03/18 06:00 09/03/18 06:00 09/03/18 06:00 09/03/18 06:00 Intake and Output: 09/03/18 09/03/18 06:59 18:59 Intake Total 1969 Output Total 800 Balance 1169 - Medications Medications: Current Medications Acetaminophen (Tylenol 650mg/20.3ml Solution Ud) 650 mg NG Q6 PRN PRN Reason: Temperature Last Admin: 08/25/18 01:06 Dose: 650 mg Acetaminophen (Tylenol 650mg/20.3ml Solution Ud) 650 mg PO Q6 PRN PRN Reason: Pain, Mild (1-3) Last Admin: 09/02/18 05:54 Dose: 650 mg Albuterol/Ipratropium (Duoneb 3 Mg/0.5 Mg (3 Ml) Ud) 3 ml INH RQ6 PRN PRN Reason: Shortness of Breath Last Admin: 08/31/18 22:00 Dose: 3 ml Amlodipine Besylate (Norvasc) 5 mg PO Q12 [facility] Last Admin: 09/02/18 21:23 Dose: 5 mg Aspirin (Aspirin Chewable) 81 mg PO DAILY [facility] Last Admin: 09/02/18 10:00 Dose: 81 mg Enoxaparin Sodium (Lovenox) 80 mg SC DAILY [facility]; Protocol Last Admin: 09/02/18 11:01 Dose: 80 mg Furosemide (Lasix) 40 mg IV DAILY [facility] Hydralazine HCl (Apresoline) 100 mg PO Q8 [facility] Last Admin: 09/03/18 00:04 Dose: 100 mg Meropenem 500 mg/ Sodium (Chloride) 100 mls @ 100 mls/hr IVPB Q8 [facility]; Protocol Last Admin: 09/03/18 00:03 Dose: 100 mls/hr Linezolid (Zyvox 600mg/300ml D5w) 600 mg in 300 mls @ 300 mls/hr IVPB Q12 [facility]; Protocol Last Admin: 09/02/18 22:18 Dose: 300 mls/hr Propofol (Diprivan) 1,000 mg in 100 mls @ 7.046 mls/hr IV .[id number] [facility]; Protocol Stop: 09/03/18 23:45 Last Titration: 09/03/18 01:36 Dose: 10 mcg/kg/min, 4.697 mls/hr Insulin Detemir (Levemir) 12 units SC DAILY [facility] Last Admin: 09/02/18 09:52 Dose: 12 unit Insulin Human Lispro (Humalog) 0 units SC [facility]; Protocol Last Admin: 09/02/18 21:39 Dose: Not Given Meclizine HCl (Antivert) 12.5 mg PO DAILY [facility] Last Admin: 08/18/18 09:27 Dose: 12.5 mg Metformin HCl (Glucophage) 1,000 mg PO BID [facility] Last Admin: 08/16/18 09:34 Dose: Not Given Metoprolol Tartrate (Lopressor) 50 mg PO Q6 [facility] Last Admin: 09/03/18 04:14 Dose: 50 mg Pantoprazole Sodium (Protonix Susp) 40 mg NG DAILY [facility] Last Admin: 09/02/18 09:56 Dose: 40 mg Sucralfate (Carafate Oral Susp) 1 gm PO [facility] Last Admin: 08/18/18 22:07 Dose: 1 gm - Labs Labs: 09/02/18 04:25 09/02/18 04:25 PT 13.3 Seconds (9.8-13.1) H 08/25/18 05:00 INR 1.2 08/25/18 05:00 APTT 29.9 Seconds (25.6-37.1) 08/25/18 05:00 Assessment and Plan (1) Acute gastroenteritis Status: Resolved (2) Hypertensive urgency Status: Resolved (3) Abdominal pain in female Status: Resolved (4) Type 2 diabetes mellitus with hyperglycemia Status: Chronic (5) NSTEMI (non-ST elevated myocardial infarction) Status: Acute (6) Gallbladder disease Status: Acute (7) AURORA (acute kidney injury) Status: Acute (8) Cardiac arrest Status: Acute (9) Acute respiratory failure Status: Acute (10) DVT (deep venous thrombosis) Status: Acute (11) Severe anemia Status: Acute (12) Aspiration pneumonia Status: Acute
--- NOTE | 2018-09-03 07:16 | CP.PCM.PN ---
Subjective - Date & Time of Evaluation Date of Evaluation: 08/30/18 Time of Evaluation: 19:00 Objective - Vital Signs/Intake and Output Vital Signs (last 24 hours): Temp Pulse Resp BP Pulse Ox 99.3 F 75 31 H 173/76 H 99 09/03/18 05:00 09/03/18 06:00 09/03/18 06:00 09/03/18 06:00 09/03/18 06:00 Intake and Output: 09/03/18 09/03/18 06:59 18:59 Intake Total 1969 Output Total 800 Balance 1169 - Medications Medications: Current Medications Acetaminophen (Tylenol 650mg/20.3ml Solution Ud) 650 mg NG Q6 PRN PRN Reason: Temperature Last Admin: 08/25/18 01:06 Dose: 650 mg Acetaminophen (Tylenol 650mg/20.3ml Solution Ud) 650 mg PO Q6 PRN PRN Reason: Pain, Mild (1-3) Last Admin: 09/02/18 05:54 Dose: 650 mg Albuterol/Ipratropium (Duoneb 3 Mg/0.5 Mg (3 Ml) Ud) 3 ml INH RQ6 PRN PRN Reason: Shortness of Breath Last Admin: 08/31/18 22:00 Dose: 3 ml Amlodipine Besylate (Norvasc) 5 mg PO Q12 [facility] Last Admin: 09/02/18 21:23 Dose: 5 mg Aspirin (Aspirin Chewable) 81 mg PO DAILY [facility] Last Admin: 09/02/18 10:00 Dose: 81 mg Enoxaparin Sodium (Lovenox) 80 mg SC DAILY [facility]; Protocol Last Admin: 09/02/18 11:01 Dose: 80 mg Furosemide (Lasix) 40 mg IV DAILY [facility] Hydralazine HCl (Apresoline) 100 mg PO Q8 [facility] Last Admin: 09/03/18 00:04 Dose: 100 mg Meropenem 500 mg/ Sodium (Chloride) 100 mls @ 100 mls/hr IVPB Q8 [facility]; Protocol Last Admin: 09/03/18 00:03 Dose: 100 mls/hr Linezolid (Zyvox 600mg/300ml D5w) 600 mg in 300 mls @ 300 mls/hr IVPB Q12 [facility]; Protocol Last Admin: 09/02/18 22:18 Dose: 300 mls/hr Propofol (Diprivan) 1,000 mg in 100 mls @ 7.046 mls/hr IV .[id number] [facility]; Protocol Stop: 09/03/18 23:45 Last Titration: 09/03/18 01:36 Dose: 10 mcg/kg/min, 4.697 mls/hr Insulin Detemir (Levemir) 12 units SC DAILY [facility] Last Admin: 09/02/18 09:52 Dose: 12 unit Insulin Human Lispro (Humalog) 0 units SC [facility]; Protocol Last Admin: 09/02/18 21:39 Dose: Not Given Meclizine HCl (Antivert) 12.5 mg PO DAILY [facility] Last Admin: 08/18/18 09:27 Dose: 12.5 mg Metformin HCl (Glucophage) 1,000 mg PO BID [facility] Last Admin: 08/16/18 09:34 Dose: Not Given Metoprolol Tartrate (Lopressor) 50 mg PO Q6 [facility] Last Admin: 09/03/18 04:14 Dose: 50 mg Pantoprazole Sodium (Protonix Susp) 40 mg NG DAILY [facility] Last Admin: 09/02/18 09:56 Dose: 40 mg Sucralfate (Carafate Oral Susp) 1 gm PO [facility] Last Admin: 08/18/18 22:07 Dose: 1 gm - Labs Labs: 09/02/18 04:25 09/02/18 04:25 PT 13.3 Seconds (9.8-13.1) H 08/25/18 05:00 INR 1.2 08/25/18 05:00 APTT 29.9 Seconds (25.6-37.1) 08/25/18 05:00 Assessment and Plan (1) Acute gastroenteritis Status: Resolved (2) Hypertensive urgency Status: Resolved (3) Abdominal pain in female Status: Resolved (4) Type 2 diabetes mellitus with hyperglycemia Status: Chronic (5) NSTEMI (non-ST elevated myocardial infarction) Status: Acute (6) Gallbladder disease Status: Acute (7) AURORA (acute kidney injury) Status: Acute (8) Cardiac arrest Status: Acute (9) Acute respiratory failure Status: Acute (10) DVT (deep venous thrombosis) Status: Acute (11) Severe anemia Status: Acute (12) Aspiration pneumonia Status: Acute
--- NOTE | 2018-09-03 07:17 | CP.PCM.PN ---
Subjective - Date & Time of Evaluation Date of Evaluation: 09/01/18 Time of Evaluation: 08:10 Objective - Vital Signs/Intake and Output Vital Signs (last 24 hours): Temp Pulse Resp BP Pulse Ox 99.3 F 75 31 H 173/76 H 99 09/03/18 05:00 09/03/18 06:00 09/03/18 06:00 09/03/18 06:00 09/03/18 06:00 Intake and Output: 09/03/18 09/03/18 06:59 18:59 Intake Total 1969 Output Total 800 Balance 1169 - Medications Medications: Current Medications Acetaminophen (Tylenol 650mg/20.3ml Solution Ud) 650 mg NG Q6 PRN PRN Reason: Temperature Last Admin: 08/25/18 01:06 Dose: 650 mg Acetaminophen (Tylenol 650mg/20.3ml Solution Ud) 650 mg PO Q6 PRN PRN Reason: Pain, Mild (1-3) Last Admin: 09/02/18 05:54 Dose: 650 mg Albuterol/Ipratropium (Duoneb 3 Mg/0.5 Mg (3 Ml) Ud) 3 ml INH RQ6 PRN PRN Reason: Shortness of Breath Last Admin: 08/31/18 22:00 Dose: 3 ml Amlodipine Besylate (Norvasc) 5 mg PO Q12 [facility] Last Admin: 09/02/18 21:23 Dose: 5 mg Aspirin (Aspirin Chewable) 81 mg PO DAILY [facility] Last Admin: 09/02/18 10:00 Dose: 81 mg Enoxaparin Sodium (Lovenox) 80 mg SC DAILY [facility]; Protocol Last Admin: 09/02/18 11:01 Dose: 80 mg Furosemide (Lasix) 40 mg IV DAILY [facility] Hydralazine HCl (Apresoline) 100 mg PO Q8 [facility] Last Admin: 09/03/18 00:04 Dose: 100 mg Meropenem 500 mg/ Sodium (Chloride) 100 mls @ 100 mls/hr IVPB Q8 [facility]; Protocol Last Admin: 09/03/18 00:03 Dose: 100 mls/hr Linezolid (Zyvox 600mg/300ml D5w) 600 mg in 300 mls @ 300 mls/hr IVPB Q12 [facility]; Protocol Last Admin: 09/02/18 22:18 Dose: 300 mls/hr Propofol (Diprivan) 1,000 mg in 100 mls @ 7.046 mls/hr IV .[id number] [facility]; Protocol Stop: 09/03/18 23:45 Last Titration: 09/03/18 01:36 Dose: 10 mcg/kg/min, 4.697 mls/hr Insulin Detemir (Levemir) 12 units SC DAILY [facility] Last Admin: 09/02/18 09:52 Dose: 12 unit Insulin Human Lispro (Humalog) 0 units SC [facility]; Protocol Last Admin: 09/02/18 21:39 Dose: Not Given Meclizine HCl (Antivert) 12.5 mg PO DAILY [facility] Last Admin: 08/18/18 09:27 Dose: 12.5 mg Metformin HCl (Glucophage) 1,000 mg PO BID [facility] Last Admin: 08/16/18 09:34 Dose: Not Given Metoprolol Tartrate (Lopressor) 50 mg PO Q6 [facility] Last Admin: 09/03/18 04:14 Dose: 50 mg Pantoprazole Sodium (Protonix Susp) 40 mg NG DAILY [facility] Last Admin: 09/02/18 09:56 Dose: 40 mg Sucralfate (Carafate Oral Susp) 1 gm PO [facility] Last Admin: 08/18/18 22:07 Dose: 1 gm - Labs Labs: 09/02/18 04:25 09/02/18 04:25 PT 13.3 Seconds (9.8-13.1) H 08/25/18 05:00 INR 1.2 08/25/18 05:00 APTT 29.9 Seconds (25.6-37.1) 08/25/18 05:00 Assessment and Plan (1) Acute gastroenteritis Status: Resolved (2) Hypertensive urgency Status: Resolved (3) Abdominal pain in female Status: Resolved (4) Type 2 diabetes mellitus with hyperglycemia Status: Chronic (5) NSTEMI (non-ST elevated myocardial infarction) Status: Acute (6) Gallbladder disease Status: Acute (7) AURORA (acute kidney injury) Status: Acute (8) Cardiac arrest Status: Acute (9) Acute respiratory failure Status: Acute (10) DVT (deep venous thrombosis) Status: Acute (11) Severe anemia Status: Acute (12) Aspiration pneumonia Status: Acute
[2018-09-03] MEDS: Insulin Lispro (humaLOG) 100 Units/ml Inj SC SCH ×4 (07:19→22:13)
--- NOTE | 2018-09-03 07:19 | CP.PCM.PN ---
Subjective - Date & Time of Evaluation Date of Evaluation: 09/02/18 Time of Evaluation: 09:10 Objective - Vital Signs/Intake and Output Vital Signs (last 24 hours): Temp Pulse Resp BP Pulse Ox 99.3 F 77 32 H 186/76 H 98 09/03/18 05:00 09/03/18 07:00 09/03/18 07:00 09/03/18 07:00 09/03/18 07:00 Intake and Output: 09/03/18 09/03/18 06:59 18:59 Intake Total 1969 Output Total 800 Balance 1169 - Medications Medications: Current Medications Acetaminophen (Tylenol 650mg/20.3ml Solution Ud) 650 mg NG Q6 PRN PRN Reason: Temperature Last Admin: 08/25/18 01:06 Dose: 650 mg Acetaminophen (Tylenol 650mg/20.3ml Solution Ud) 650 mg PO Q6 PRN PRN Reason: Pain, Mild (1-3) Last Admin: 09/02/18 05:54 Dose: 650 mg Albuterol/Ipratropium (Duoneb 3 Mg/0.5 Mg (3 Ml) Ud) 3 ml INH RQ6 PRN PRN Reason: Shortness of Breath Last Admin: 08/31/18 22:00 Dose: 3 ml Amlodipine Besylate (Norvasc) 5 mg PO Q12 [facility] Last Admin: 09/02/18 21:23 Dose: 5 mg Aspirin (Aspirin Chewable) 81 mg PO DAILY [facility] Last Admin: 09/02/18 10:00 Dose: 81 mg Enoxaparin Sodium (Lovenox) 80 mg SC DAILY [facility]; Protocol Last Admin: 09/02/18 11:01 Dose: 80 mg Furosemide (Lasix) 40 mg IV DAILY [facility] Hydralazine HCl (Apresoline) 100 mg PO Q8 [facility] Last Admin: 09/03/18 00:04 Dose: 100 mg Meropenem 500 mg/ Sodium (Chloride) 100 mls @ 100 mls/hr IVPB Q8 [facility]; Protocol Last Admin: 09/03/18 00:03 Dose: 100 mls/hr Linezolid (Zyvox 600mg/300ml D5w) 600 mg in 300 mls @ 300 mls/hr IVPB Q12 [facility]; Protocol Last Admin: 09/02/18 22:18 Dose: 300 mls/hr Propofol (Diprivan) 1,000 mg in 100 mls @ 7.046 mls/hr IV .[id number] [facility]; Protocol Stop: 09/03/18 23:45 Last Titration: 09/03/18 01:36 Dose: 10 mcg/kg/min, 4.697 mls/hr Insulin Detemir (Levemir) 12 units SC DAILY [facility] Last Admin: 09/02/18 09:52 Dose: 12 unit Insulin Human Lispro (Humalog) 0 units SC [facility]; Protocol Last Admin: 09/02/18 21:39 Dose: Not Given Meclizine HCl (Antivert) 12.5 mg PO DAILY [facility] Last Admin: 08/18/18 09:27 Dose: 12.5 mg Metformin HCl (Glucophage) 1,000 mg PO BID [facility] Last Admin: 08/16/18 09:34 Dose: Not Given Metoprolol Tartrate (Lopressor) 50 mg PO Q6 [facility] Last Admin: 09/03/18 04:14 Dose: 50 mg Pantoprazole Sodium (Protonix Susp) 40 mg NG DAILY [facility] Last Admin: 09/02/18 09:56 Dose: 40 mg Sucralfate (Carafate Oral Susp) 1 gm PO [facility] Last Admin: 08/18/18 22:07 Dose: 1 gm - Labs Labs: 09/02/18 04:25 09/02/18 04:25 PT 13.3 Seconds (9.8-13.1) H 08/25/18 05:00 INR 1.2 08/25/18 05:00 APTT 29.9 Seconds (25.6-37.1) 08/25/18 05:00 Assessment and Plan (1) Acute gastroenteritis Status: Resolved (2) Hypertensive urgency Status: Resolved (3) Abdominal pain in female Status: Resolved (4) Type 2 diabetes mellitus with hyperglycemia Status: Chronic (5) NSTEMI (non-ST elevated myocardial infarction) Status: Acute (6) Gallbladder disease Status: Acute (7) AURORA (acute kidney injury) Status: Acute (8) Cardiac arrest Status: Acute (9) Acute respiratory failure Status: Acute (10) DVT (deep venous thrombosis) Status: Acute (11) Severe anemia Status: Acute (12) Aspiration pneumonia Status: Acute
[2018-09-03 07:35] LABS: BASO # 0.1 K/uL (0.0-0.2); BASO % 0.5 % (0.0-2.0); EOS # 0.1 K/uL (0.0-0.7); EOS % 0.6 % (0.0-4.0); HEMOGLOBIN 11.3 g/dL (12.0-16.0); LYMPH # 1.2 K/uL (1.0-4.3); LYMPH % 6.9 % (20.0-40.0); MEAN CORPUSCULAR HGB CONC 34.1 g/dL (33.0-37.0); MEAN PLATELET VOLUME 8.3 fl (7.2-11.7); MONO # 1.3 K/uL (0.0-0.8); MONO % 7.9 % (0.0-10.0); NEUT # 14.1 K/uL (1.8-7.0); NEUT % 84.1 % (50.0-75.0); NRBC % 0.1 % (0.0-0.0); PLATELET COUNT 440 K/uL (130-400); RED CELL DISTRIBUTION WIDTH 25.1 % (11.5-14.5); WHITE BLOOD COUNT 16.8 K/uL (4.8-10.8)
[2018-09-03 07:59] LABS: ALB/GLOB RATIO 0.8 (1.0-2.1); ALBUMIN 2.9 g/dL (3.5-5.0); CALCIUM 7.8 mg/dL (8.4-10.2)
[2018-09-03] MEDS: Pantoprazole 40 mg Susp UD NG SCH (08:53)
[2018-09-03] MEDS: Insulin Detemir 100 Units/ml Inj SC SCH (08:59)
--- NOTE | 2018-09-03 09:03 | RAD ---
Date of service: 09/03/2018 PROCEDURE: CHEST RADIOGRAPH, 1 VIEW HISTORY: Intubated COMPARISON: 09/02/2018 FINDINGS: LUNGS: Diffuse bilateral interstitial infiltrates consistent with CHF. PLEURA: Bilateral effusions. CARDIOVASCULAR: No aortic atherosclerotic calcification present. Normal. OSSEOUS STRUCTURES: No significant abnormalities. VISUALIZED UPPER ABDOMEN: Normal. OTHER FINDINGS: Tubes and catheters unchanged. IMPRESSION: CHF unchanged.
[2018-09-03] MEDS: Enoxaparin 80 mg Syringe SC SCH (09:24)
[2018-09-03] MEDS: Linezolid 600 mg in D5W 300 ml 600 MG/300 ML BAG IVPB SCH ×2 (09:25→21:12)
--- NOTE | 2018-09-03 09:39 | CP.PCM.CON ---
Past Patient History - Past Medical History & Family History Past Medical History?: Yes Past Family History: Reviewed and not pertinent - Past Social History Smoking Status: Never Smoked Alcohol: None Drugs: Denies Home Situation {Lives}: With Family - CARDIAC Hx Cardiac Disorders: Yes Hx Hypertension: Yes Hx Pacemaker: No - PULMONARY Hx Respiratory Disorders: No - NEUROLOGICAL Hx Neurological Disorder: Yes Hx Dizziness: Yes - HEENT Hx HEENT Problems: No - RENAL Hx Chronic Kidney Disease: No - ENDOCRINE/METABOLIC Hx Endocrine Disorders: Yes Hx Diabetes Mellitus Type 2: Yes - HEMATOLOGICAL/ONCOLOGICAL Hx Blood Disorders: No Hx Cancer: No - INTEGUMENTARY Hx Dermatological Problems: No - MUSCULOSKELETAL/RHEUMATOLOGICAL Hx Musculoskeletal Disorders: Yes Hx Falls: Yes - GASTROINTESTINAL Hx Gastrointestinal Disorders: Yes Hx Gastritis: Yes - GENITOURINARY/GYNECOLOGICAL Hx Genitourinary Disorders: No - PSYCHIATRIC Hx Psychophysiologic Disorder: No Hx Substance Use: No - SURGICAL HISTORY Hx Surgeries: No Hx Mastectomy: No - ANESTHESIA Hx Anesthesia: No Meds Allergies/Adverse Reactions: Allergies Allergy/AdvReac Type Severity Reaction Status Date / Time No Known Allergies Allergy Verified 09/20/17 08:57 - Medications Medications: Current Medications Acetaminophen (Tylenol 650mg/20.3ml Solution Ud) 650 mg NG Q6 PRN PRN Reason: Temperature Last Admin: 08/25/18 01:06 Dose: 650 mg Acetaminophen (Tylenol 650mg/20.3ml Solution Ud) 650 mg PO Q6 PRN PRN Reason: Pain, Mild (1-3) Last Admin: 09/02/18 05:54 Dose: 650 mg Albuterol/Ipratropium (Duoneb 3 Mg/0.5 Mg (3 Ml) Ud) 3 ml INH RQ6 PRN PRN Reason: Shortness of Breath Last Admin: 08/31/18 22:00 Dose: 3 ml Amlodipine Besylate (Norvasc) 5 mg PO Q12 [facility] Last Admin: 09/03/18 08:53 Dose: 5 mg Aspirin (Aspirin Chewable) 81 mg PO DAILY [facility] Last Admin: 09/03/18 08:55 Dose: 81 mg Enoxaparin Sodium (Lovenox) 80 mg SC DAILY [facility]; Protocol Last Admin: 09/03/18 09:24 Dose: 80 mg Furosemide (Lasix) 40 mg IV DAILY [facility] Last Admin: 09/03/18 08:55 Dose: 40 mg Hydralazine HCl (Apresoline) 100 mg PO Q8 [facility] Last Admin: 09/03/18 08:52 Dose: 100 mg Meropenem 500 mg/ Sodium (Chloride) 100 mls @ 100 mls/hr IVPB Q8 [facility]; Protocol Last Admin: 09/03/18 08:50 Dose: 100 mls/hr Linezolid (Zyvox 600mg/300ml D5w) 600 mg in 300 mls @ 300 mls/hr IVPB Q12 [facility]; Protocol Last Admin: 09/03/18 09:25 Dose: 300 mls/hr Propofol (Diprivan) 1,000 mg in 100 mls @ 7.046 mls/hr IV .[id number] [facility]; Protocol Stop: 09/03/18 23:45 Last Titration: 09/03/18 01:36 Dose: 10 mcg/kg/min, 4.697 mls/hr Insulin Detemir (Levemir) 12 units SC DAILY [facility] Last Admin: 09/03/18 08:59 Dose: 12 unit Insulin Human Lispro (Humalog) 0 units SC [facility]; Protocol Last Admin: 09/03/18 07:19 Dose: 3 u Meclizine HCl (Antivert) 12.5 mg PO DAILY [facility] Last Admin: 08/18/18 09:27 Dose: 12.5 mg Metformin HCl (Glucophage) 1,000 mg PO BID [facility] Last Admin: 08/16/18 09:34 Dose: Not Given Metoprolol Tartrate (Lopressor) 50 mg PO Q6 [facility] Last Admin: 09/03/18 09:24 Dose: 50 mg Pantoprazole Sodium (Protonix Susp) 40 mg NG DAILY [facility] Last Admin: 09/03/18 08:53 Dose: 40 mg Sucralfate (Carafate Oral Susp) 1 gm PO [facility] Last Admin: 08/18/18 22:07 Dose: 1 gm Results - Vital Signs Recent Vital Signs: Last Vital Signs Temp 98.5 F 09/03/18 08:00 Pulse 74 09/03/18 09:24 Resp 20 09/03/18 08:00 BP 148/64 09/03/18 09:24 Pulse Ox 99 09/03/18 08:00 - Labs Result Diagrams: 09/03/18 05:30 09/03/18 05:30 Labs: Laboratory Results - last 24 hr 09/01/18 09/02/18 09/02/18 16:45 10:15 11:00 WBC RBC Hgb Hct MCV MCH MCHC RDW Plt Count MPV Neut % (Auto) Lymph % (Auto) Kaufman % (Auto) Eos % (Auto) Baso % (Auto) Neut # (Auto) Lymph # (Auto) Kaufman # (Auto) Eos # (Auto) Baso # (Auto) ESR pCO2 pO2 HCO3 ABG pH ABG Total CO2 ABG O2 Saturation ABG O2 Content ABG Base Excess ABG Hemoglobin ABG Carboxyhemoglobin POC ABG HHb (Measured) ABG Methemoglobin ABG O2 Capacity Masoud Test A-a O2 Difference Hgb O2 Saturation Vent Mode Mechanical Rate FiO2 Tidal Volume PEEP Sodium Potassium Chloride Carbon Dioxide Anion Gap BUN Creatinine Est GFR ( Amer) Est GFR (Non-Af Amer) POC Glucose (mg/dL) Random Glucose Calcium Total Bilirubin AST ALT Alkaline Phosphatase Troponin I 1.1800 H* Total Protein Albumin Globulin Albumin/Globulin Ratio Urine Color Urine Clarity Urine pH Ur Specific Hye Urine Protein Urine Glucose (UA) Urine Ketones Urine Blood Urine Nitrate Urine Bilirubin Urine Urobilinogen Ur Leukocyte Esterase Urine RBC (Auto) Urine Microscopic WBC Ur Squamous Epith Cells Urine Bacteria Hyaline Casts Urine Yeast (Budding) Ur L.pneumophila Ag Negative Blood Type O POSITIVE Antibody Screen Negative Crossmatch See Detail BBK History Checked Patient has bt 09/02/18 09/02/18 09/02/18 11:00 11:21 15:42 WBC RBC Hgb Hct MCV MCH MCHC RDW Plt Count MPV Neut % (Auto) Lymph % (Auto) Kaufman % (Auto) Eos % (Auto) Baso % (Auto) Neut # (Auto) Lymph # (Auto) Kaufman # (Auto) Eos # (Auto) Baso # (Auto) ESR 100 H pCO2 pO2 HCO3 ABG pH ABG Total CO2 ABG O2 Saturation ABG O2 Content ABG Base Excess ABG Hemoglobin ABG Carboxyhemoglobin POC ABG HHb (Measured) ABG Methemoglobin ABG O2 Capacity Masoud Test A-a O2 Difference Hgb O2 Saturation Vent Mode Mechanical Rate FiO2 Tidal Volume PEEP Sodium Potassium Chloride Carbon Dioxide Anion Gap BUN Creatinine Est GFR ( Amer) Est GFR (Non-Af Amer) POC Glucose (mg/dL) 225 H Random Glucose Calcium Total Bilirubin AST ALT Alkaline Phosphatase Troponin I Total Protein Albumin Globulin Albumin/Globulin Ratio Urine Color Yellow Urine Clarity Cloudy Urine pH 5.0 Ur Specific Hye 1.017 Urine Protein 30 Urine Glucose (UA) Neg Urine Ketones Negative Urine Blood Small Urine Nitrate Negative Urine Bilirubin Negative Urine Urobilinogen 0.2-1.0 Ur Leukocyte Esterase Large Urine RBC (Auto) 7 H Urine Microscopic WBC 15 H Ur Squamous Epith Cells 1 Urine Bacteria Occ H Hyaline Casts 6-10 H Urine Yeast (Budding) Many H Ur L.pneumophila Ag Blood Type Antibody Screen Crossmatch BBK History Checked 09/02/18 09/02/18 09/03/18 16:49 21:02 04:00 WBC RBC Hgb Hct MCV MCH MCHC RDW Plt Count MPV Neut % (Auto) Lymph % (Auto) Kaufman % (Auto) Eos % (Auto) Baso % (Auto) Neut # (Auto) Lymph # (Auto) Kaufman # (Auto) Eos # (Auto) Baso # (Auto) ESR pCO2 32 L pO2 50 L HCO3 23.3 ABG pH 7.44 ABG Total CO2 22.7 ABG O2 Saturation 88.6 L ABG O2 Content 14.1 L ABG Base Excess -1.8 ABG Hemoglobin 11.7 ABG Carboxyhemoglobin 2.0 H POC ABG HHb (Measured) 11.0 H ABG Methemoglobin 1.4 ABG O2 Capacity 15.9 L Masoud Test Yes A-a O2 Difference 267.0 Hgb O2 Saturation 85.6 L Vent Mode A/c Mechanical Rate 10 FiO2 50.0 Tidal Volume 400 PEEP 5 Sodium Potassium Chloride Carbon Dioxide Anion Gap BUN Creatinine Est GFR ( Amer) Est GFR (Non-Af Amer) POC Glucose (mg/dL) 266 H 253 H Random Glucose Calcium Total Bilirubin AST ALT Alkaline Phosphatase Troponin I Total Protein Albumin Globulin Albumin/Globulin Ratio Urine Color Urine Clarity Urine pH Ur Specific Hye Urine Protein Urine Glucose (UA) Urine Ketones Urine Blood Urine Nitrate Urine Bilirubin Urine Urobilinogen Ur Leukocyte Esterase Urine RBC (Auto) Urine Microscopic WBC Ur Squamous Epith Cells Urine Bacteria Hyaline Casts Urine Yeast (Budding) Ur L.pneumophila Ag Blood Type Antibody Screen Crossmatch BBK History Checked 09/03/18 09/03/18 09/03/18 04:45 05:30 05:30 WBC 16.8 H RBC 3.90 Hgb 11.3 L D Hct 33.2 L MCV 85.0 D MCH 29.0 MCHC 34.1 RDW 25.1 H Plt Count 440 H MPV 8.3 Neut % (Auto) 84.1 H Lymph % (Auto) 6.9 L Kaufman % (Auto) 7.9 Eos % (Auto) 0.6 Baso % (Auto) 0.5 Neut # (Auto) 14.1 H Lymph # (Auto) 1.2 Kaufman # (Auto) 1.3 H Eos # (Auto) 0.1 Baso # (Auto) 0.1 ESR pCO2 pO2 HCO3 ABG pH ABG Total CO2 ABG O2 Saturation ABG O2 Content ABG Base Excess ABG Hemoglobin ABG Carboxyhemoglobin POC ABG HHb (Measured) ABG Methemoglobin ABG O2 Capacity Masoud Test A-a O2 Difference Hgb O2 Saturation Vent Mode Mechanical Rate FiO2 Tidal Volume PEEP Sodium 140 Potassium 3.7 Chloride 106 Carbon Dioxide 21 L Anion Gap 17 BUN 50 H Creatinine 2.1 H Est GFR ( Amer) 28 Est GFR (Non-Af Amer) 23 POC Glucose (mg/dL) 287 H Random Glucose 310 H Calcium 7.8 L Total Bilirubin 0.9 AST 34 ALT 41 Alkaline Phosphatase 164 H D Troponin I Total Protein 6.5 Albumin 2.9 L Globulin 3.6 Albumin/Globulin Ratio 0.8 L Urine Color Urine Clarity Urine pH Ur Specific Hye Urine Protein Urine Glucose (UA) Urine Ketones Urine Blood Urine Nitrate Urine Bilirubin Urine Urobilinogen Ur Leukocyte Esterase Urine RBC (Auto) Urine Microscopic WBC Ur Squamous Epith Cells Urine Bacteria Hyaline Casts Urine Yeast (Budding) Ur L.pneumophila Ag Blood Type Antibody Screen Crossmatch BBK History Checked Assessment & Plan - Assessment and Plan (Free Text) Assessment: IMPRESSION/MAJOR PROBLEMS: S/p Cardiac Arrest, Acute resp failure Pneumonia, Aspiration Vs VAP Acute/Subacute NSTEMI VRE Bacteremia/Sepsis, Coag neg Staph AURORA, multifactorial GI symptoms/GB / Biliary Tract disease Pulmonary edema/Congestion DVT Anemia CVA DM-II HTN Hypokalemia PLAN: - Re-intubated on 09/01 due to hypoxia and lethargy, CXR with worsening infiltrate/pneumonia and Effusion, f/u Pulmonary Consult, F/u Bcx and sputum, C/w Lasix, monitor renal function - Worsening Troponin, on lovenox for NSTEMI, follow up Cardio recommendations (Worsening renal function) - Worsening Renal function, c/w Nephro recommendations, treating patient for DVT/NSTEMI and B/l plural effusion - Staph coag neg Bacteremia/ VRE, C/w Lisa and Linezolid as per ID, follow up further recommendations of worsening infiltrate on CXR - S/p VEEG, CT: no acute changes, MRI as per neuro to r/o causes for worsening weakness before intubation - H/H drop plus comorbidity, Transfuse 2 U pRBCs - C/w Lovenox 80mg SC daily, Aspirin 81, lasix 40mg daily - C/w Metoprolol 50 Q8H /Norvasc 5mg BID/Hydralazine 100 Q8H - C/w Insulin Leve 12 U SC daily and Lispro - C/w Protonix
--- NOTE | 2018-09-03 09:51 | CP.PCM.CON ---
Past Patient History - Past Medical History & Family History Past Medical History?: Yes Past Family History: Reviewed and not pertinent - Past Social History Smoking Status: Never Smoked Alcohol: None Drugs: Denies Home Situation {Lives}: With Family - CARDIAC Hx Cardiac Disorders: Yes Hx Hypertension: Yes Hx Pacemaker: No - PULMONARY Hx Respiratory Disorders: No - NEUROLOGICAL Hx Neurological Disorder: Yes Hx Dizziness: Yes - HEENT Hx HEENT Problems: No - RENAL Hx Chronic Kidney Disease: No - ENDOCRINE/METABOLIC Hx Endocrine Disorders: Yes Hx Diabetes Mellitus Type 2: Yes - HEMATOLOGICAL/ONCOLOGICAL Hx Blood Disorders: No Hx Cancer: No - INTEGUMENTARY Hx Dermatological Problems: No - MUSCULOSKELETAL/RHEUMATOLOGICAL Hx Musculoskeletal Disorders: Yes Hx Falls: Yes - GASTROINTESTINAL Hx Gastrointestinal Disorders: Yes Hx Gastritis: Yes - GENITOURINARY/GYNECOLOGICAL Hx Genitourinary Disorders: No - PSYCHIATRIC Hx Psychophysiologic Disorder: No Hx Substance Use: No - SURGICAL HISTORY Hx Surgeries: No Hx Mastectomy: No - ANESTHESIA Hx Anesthesia: No Meds Allergies/Adverse Reactions: Allergies Allergy/AdvReac Type Severity Reaction Status Date / Time No Known Allergies Allergy Verified 09/20/17 08:57 - Medications Medications: Current Medications Acetaminophen (Tylenol 650mg/20.3ml Solution Ud) 650 mg NG Q6 PRN PRN Reason: Temperature Last Admin: 08/25/18 01:06 Dose: 650 mg Acetaminophen (Tylenol 650mg/20.3ml Solution Ud) 650 mg PO Q6 PRN PRN Reason: Pain, Mild (1-3) Last Admin: 09/02/18 05:54 Dose: 650 mg Albuterol/Ipratropium (Duoneb 3 Mg/0.5 Mg (3 Ml) Ud) 3 ml INH RQ6 PRN PRN Reason: Shortness of Breath Last Admin: 08/31/18 22:00 Dose: 3 ml Amlodipine Besylate (Norvasc) 5 mg PO Q12 [facility] Last Admin: 09/03/18 08:53 Dose: 5 mg Aspirin (Aspirin Chewable) 81 mg PO DAILY [facility] Last Admin: 09/03/18 08:55 Dose: 81 mg Enoxaparin Sodium (Lovenox) 80 mg SC DAILY [facility]; Protocol Last Admin: 09/03/18 09:24 Dose: 80 mg Furosemide (Lasix) 40 mg IV DAILY [facility] Last Admin: 09/03/18 08:55 Dose: 40 mg Hydralazine HCl (Apresoline) 100 mg PO Q8 [facility] Last Admin: 09/03/18 08:52 Dose: 100 mg Meropenem 500 mg/ Sodium (Chloride) 100 mls @ 100 mls/hr IVPB Q8 [facility]; Protocol Last Admin: 09/03/18 08:50 Dose: 100 mls/hr Linezolid (Zyvox 600mg/300ml D5w) 600 mg in 300 mls @ 300 mls/hr IVPB Q12 [facility]; Protocol Last Admin: 09/03/18 09:25 Dose: 300 mls/hr Propofol (Diprivan) 1,000 mg in 100 mls @ 7.046 mls/hr IV .[id number] [facility]; Protocol Stop: 09/03/18 23:45 Last Titration: 09/03/18 09:39 Dose: 15 mcg/kg/min, 7.046 mls/hr Insulin Detemir (Levemir) 12 units SC DAILY [facility] Last Admin: 09/03/18 08:59 Dose: 12 unit Insulin Human Lispro (Humalog) 0 units SC [facility]; Protocol Last Admin: 09/03/18 07:19 Dose: 3 u Meclizine HCl (Antivert) 12.5 mg PO DAILY [facility] Last Admin: 08/18/18 09:27 Dose: 12.5 mg Metformin HCl (Glucophage) 1,000 mg PO BID [facility] Last Admin: 08/16/18 09:34 Dose: Not Given Metoprolol Tartrate (Lopressor) 50 mg PO Q6 [facility] Last Admin: 09/03/18 09:24 Dose: 50 mg Pantoprazole Sodium (Protonix Susp) 40 mg NG DAILY [facility] Last Admin: 09/03/18 08:53 Dose: 40 mg Sucralfate (Carafate Oral Susp) 1 gm PO [facility] Last Admin: 08/18/18 22:07 Dose: 1 gm Results - Vital Signs Recent Vital Signs: Last Vital Signs Temp 98.5 F 09/03/18 08:00 Pulse 74 09/03/18 09:24 Resp 20 09/03/18 08:00 BP 148/64 09/03/18 09:24 Pulse Ox 99 09/03/18 08:00 - Labs Result Diagrams: 09/03/18 05:30 09/03/18 05:30 Labs: Laboratory Results - last 24 hr 09/01/18 09/02/18 09/02/18 16:45 10:15 11:00 WBC RBC Hgb Hct MCV MCH MCHC RDW Plt Count MPV Neut % (Auto) Lymph % (Auto) Fleming % (Auto) Eos % (Auto) Baso % (Auto) Neut # (Auto) Lymph # (Auto) Fleming # (Auto) Eos # (Auto) Baso # (Auto) ESR pCO2 pO2 HCO3 ABG pH ABG Total CO2 ABG O2 Saturation ABG O2 Content ABG Base Excess ABG Hemoglobin ABG Carboxyhemoglobin POC ABG HHb (Measured) ABG Methemoglobin ABG O2 Capacity Masoud Test A-a O2 Difference Hgb O2 Saturation Vent Mode Mechanical Rate FiO2 Tidal Volume PEEP Sodium Potassium Chloride Carbon Dioxide Anion Gap BUN Creatinine Est GFR ( Amer) Est GFR (Non-Af Amer) POC Glucose (mg/dL) Random Glucose Calcium Total Bilirubin AST ALT Alkaline Phosphatase Troponin I 1.1800 H* Total Protein Albumin Globulin Albumin/Globulin Ratio Urine Color Urine Clarity Urine pH Ur Specific [address] Urine Protein Urine Glucose (UA) Urine Ketones Urine Blood Urine Nitrate Urine Bilirubin Urine Urobilinogen Ur Leukocyte Esterase Urine RBC (Auto) Urine Microscopic WBC Ur Squamous Epith Cells Urine Bacteria Hyaline Casts Urine Yeast (Budding) Ur L.pneumophila Ag Negative Blood Type O POSITIVE Antibody Screen Negative Crossmatch See Detail BBK History Checked Patient has bt 09/02/18 09/02/18 09/02/18 11:00 11:21 15:42 WBC RBC Hgb Hct MCV MCH MCHC RDW Plt Count MPV Neut % (Auto) Lymph % (Auto) Fleming % (Auto) Eos % (Auto) Baso % (Auto) Neut # (Auto) Lymph # (Auto) Fleming # (Auto) Eos # (Auto) Baso # (Auto) ESR 100 H pCO2 pO2 HCO3 ABG pH ABG Total CO2 ABG O2 Saturation ABG O2 Content ABG Base Excess ABG Hemoglobin ABG Carboxyhemoglobin POC ABG HHb (Measured) ABG Methemoglobin ABG O2 Capacity Masoud Test A-a O2 Difference Hgb O2 Saturation Vent Mode Mechanical Rate FiO2 Tidal Volume PEEP Sodium Potassium Chloride Carbon Dioxide Anion Gap BUN Creatinine Est GFR ( Amer) Est GFR (Non-Af Amer) POC Glucose (mg/dL) 225 H Random Glucose Calcium Total Bilirubin AST ALT Alkaline Phosphatase Troponin I Total Protein Albumin Globulin Albumin/Globulin Ratio Urine Color Yellow Urine Clarity Cloudy Urine pH 5.[address] 1[address]017 Urine Protein 30 Urine Glucose (UA) Neg Urine Ketones Negative Urine Blood Small Urine Nitrate Negative Urine Bilirubin Negative Urine Urobilinogen 0.2-1.0 Ur Leukocyte Esterase Large Urine RBC (Auto) 7 H Urine Microscopic WBC 15 H Ur Squamous Epith Cells 1 Urine Bacteria Occ H Hyaline Casts 6-10 H Urine Yeast (Budding) Many H Ur L.pneumophila Ag Blood Type Antibody Screen Crossmatch BBK History Checked 09/02/18 09/02/18 09/03/18 16:49 21:02 04:00 WBC RBC Hgb Hct MCV MCH MCHC RDW Plt Count MPV Neut % (Auto) Lymph % (Auto) Fleming % (Auto) Eos % (Auto) Baso % (Auto) Neut # (Auto) Lymph # (Auto) Fleming # (Auto) Eos # (Auto) Baso # (Auto) ESR pCO2 32 L pO2 50 L HCO3 23.3 ABG pH 7.44 ABG Total CO2 22.7 ABG O2 Saturation 88.6 L ABG O2 Content 14.1 L ABG Base Excess -1.8 ABG Hemoglobin 11.7 ABG Carboxyhemoglobin 2.0 H POC ABG HHb (Measured) 11.0 H ABG Methemoglobin 1.4 ABG O2 Capacity 15.9 L Masoud Test Yes A-a O2 Difference 267.0 Hgb O2 Saturation 85.6 L Vent Mode A/c Mechanical Rate 10 FiO2 50.0 Tidal Volume 400 PEEP 5 Sodium Potassium Chloride Carbon Dioxide Anion Gap BUN Creatinine Est GFR ( Amer) Est GFR (Non-Af Amer) POC Glucose (mg/dL) 266 H 253 H Random Glucose Calcium Total Bilirubin AST ALT Alkaline Phosphatase Troponin I Total Protein Albumin Globulin Albumin/Globulin Ratio Urine Color Urine Clarity Urine pH Ur Specific [address] Urine Protein Urine Glucose (UA) Urine Ketones Urine Blood Urine Nitrate Urine Bilirubin Urine Urobilinogen Ur Leukocyte Esterase Urine RBC (Auto) Urine Microscopic WBC Ur Squamous Epith Cells Urine Bacteria Hyaline Casts Urine Yeast (Budding) Ur L.pneumophila Ag Blood Type Antibody Screen Crossmatch BBK History Checked 09/03/18 09/03/18 09/03/18 04:45 05:30 05:30 WBC 16.8 H RBC 3.90 Hgb 11.3 L D Hct 33.2 L MCV 85.0 D MCH 29.0 MCHC 34.1 RDW 25.1 H Plt Count 440 H MPV 8.3 Neut % (Auto) 84.1 H Lymph % (Auto) 6.9 L Fleming % (Auto) 7.9 Eos % (Auto) 0.6 Baso % (Auto) 0.5 Neut # (Auto) 14.1 H Lymph # (Auto) 1.2 Fleming # (Auto) 1.3 H Eos # (Auto) 0.1 Baso # (Auto) 0.1 ESR pCO2 pO2 HCO3 ABG pH ABG Total CO2 ABG O2 Saturation ABG O2 Content ABG Base Excess ABG Hemoglobin ABG Carboxyhemoglobin POC ABG HHb (Measured) ABG Methemoglobin ABG O2 Capacity Masoud Test A-a O2 Difference Hgb O2 Saturation Vent Mode Mechanical Rate FiO2 Tidal Volume PEEP Sodium 140 Potassium 3.7 Chloride 106 Carbon Dioxide 21 L Anion Gap 17 BUN 50 H Creatinine 2.1 H Est GFR ( Amer) 28 Est GFR (Non-Af Amer) 23 POC Glucose (mg/dL) 287 H Random Glucose 310 H Calcium 7.8 L Total Bilirubin 0.9 AST 34 ALT 41 Alkaline Phosphatase 164 H D Troponin I Total Protein 6.5 Albumin 2.9 L Globulin 3.6 Albumin/Globulin Ratio 0.8 L Urine Color Urine Clarity Urine pH Ur Specific [address] Urine Protein Urine Glucose (UA) Urine Ketones Urine Blood Urine Nitrate Urine Bilirubin Urine Urobilinogen Ur Leukocyte Esterase Urine RBC (Auto) Urine Microscopic WBC Ur Squamous Epith Cells Urine Bacteria Hyaline Casts Urine Yeast (Budding) Ur L.pneumophila Ag Blood Type Antibody Screen Crossmatch BBK History Checked
[2018-09-03 09:59] LABS: ABG ALLEN TEST YES; ARTERIAL BLOOD GAS HCO3 24.5 mmol/L (21-28); ARTERIAL BLOOD GAS HEMOGLOBIN 11.2 g/dL (11.7-17.4); ARTERIAL BLOOD GAS O2 CAPACITY 15.6 mL/dL (16-24); ARTERIAL BLOOD GAS O2 CONTENT 15.5 ML/dL (15-23); ARTERIAL BLOOD GAS O2 SAT 99.6 % (95-98); ARTERIAL BLOOD GAS PCO2 29 mm/Hg (35-45); ARTERIAL BLOOD GAS PH 7.49 (7.35-7.45); ARTERIAL BLOOD GAS PO2 148 mm/Hg (80-100)
--- NOTE | 2018-09-03 10:03 | CP.CCUPN ---
CCU Subjective - Physician Review Events Since Last Encounter (Free Text): 09/03/18 10:03 sedated, intubated, Ox sat was low this morning, on exam and on CXR, pulm edema is worse, Hb was low , received 2 unit PRBc and Hb is now 11, was 7. Has mild hematuria , due to hughes;s trauma but due to DVT and HI, she has strong indication for AC, will continue lovenoox. CCU Objective - Vital Signs / Intake & Output Vital Signs (Last 4 hours): Vital Signs Temp Pulse Resp BP Pulse Ox 09/03/18 09:24 74 148/64 09/03/18 08:55 175/75 H 09/03/18 08:53 71 175/75 H 09/03/18 08:52 71 175/75 H 09/03/18 08:00 98.5 F 79 20 175/75 H 99 09/03/18 07:00 77 32 H 186/76 H 98 09/03/18 06:00 75 31 H 173/76 H 99 Intake and Output (Last 8hrs): Intake & Output 09/02/18 09/03/18 09/03/18 22:59 06:59 14:59 Intake Total 1245 1609 350 Output Total 50 800 Balance 1195 809 350 Weight 174 lb 12.8 oz Intake: IV 130 109 0 Intake, Piggyback 100 400 100 Tube Feeding 290 400 50 Blood Product 325 275 Apheresis Rbc Cp2d As3 Lr 0 275 1st Unit [id number] Red Blood Cells Cpd As1 325 Lr Unit [id number] Free Water Flush 400 400 200 Other 25 Apheresis Rbc Cp2d As3 Lr 25 1st Unit [id number] Output: Urine 50 800 Urethral (Hughes) 50 800 Other: # Bowel Movements 1 1 1 - Physical Exam Narrative Physical Exam (Free Text): 09/03/18 10:06 P/E Neck: JVD:+ve Heart: no gallop Abdomen: soft, Ext: +1 edema Lungs: Bilateral crackles, basal. Head: Positive for: Atraumatic, Normocephalic Pupils: Positive for: PERRL. Negative for: Sluggish, Non-Reactive, Pinpoint Conjunctiva: Positive for: Normal. Negative for: Injected, Icteric Mouth: Positive for: Moist Mucous Membranes Nose (External): Positive for: Atraumatic Neck: Positive for: Normal Range of Motion Respiratory/Chest: Positive for: Rhonchi Cardiovascular: Positive for: Regular Rate and Rhythm Abdomen: Positive for: Normal Bowel Sounds. Negative for: Tenderness, Distention, Peritoneal Signs Upper Extremity: Positive for: Normal Inspection, NORMAL PULSES, Capillary Refill < 2s. Negative for: Cyanosis, Edema Lower Extremity: Positive for: Normal Inspection. Negative for: Edema, CALF TENDERNESS Neurological: Positive for: Other (on ventilator, opens eyes to verbal stimuli). Negative for: GCS=15, CN II-XII Intact, Speech Normal, Motor Func Grossly Intact, Normal Sensory Function, Normal Cerebellar Funct, Norm Deep Tendon Reflexes, Gait Normal, Memory Normal, Normal 2Pt Descrimination Psychiatric: Negative for: Alert, Oriented x 3 - Medications Active Medications: Active Medications Generic Name Dose Route Start Last Admin Trade Name Freq PRN Reason Stop Dose Admin Acetaminophen 650 mg 08/24/18 10:29 08/25/18 01:06 Tylenol 650mg/20.3ml Solution Ud NG 650 mg Q6 PRN Administration Temperature Acetaminophen 650 mg 08/31/18 19:57 09/02/18 05:54 Tylenol 650mg/20.3ml Solution Ud PO 650 mg Q6 PRN Administration Pain, Mild (1-3) Albuterol/Ipratropium 3 ml 08/31/18 14:34 08/31/18 22:00 Duoneb 3 Mg/0.5 Mg (3 Ml) Ud INH 3 ml RQ6 PRN Administration Shortness of Breath Amlodipine Besylate 5 mg 08/22/18 21:00 09/03/18 08:53 Norvasc PO 5 mg Q12 CARMEN Administration Aspirin 81 mg 08/21/18 09:00 09/03/18 08:55 Aspirin Chewable PO 81 mg DAILY CARMEN Administration Enoxaparin Sodium 80 mg 09/02/18 09:00 09/03/18 09:24 Lovenox SC 80 mg DAILY CARMEN Administration Protocol Furosemide 40 mg 09/03/18 09:00 09/03/18 08:55 Lasix IV 40 mg DAILY CARMEN Administration Hydralazine HCl 100 mg 08/31/18 11:00 09/03/18 08:52 Apresoline PO 100 mg Q8 CARMEN Administration Meropenem 500 mg/ Sodium 100 mls @ 100 mls/hr 08/24/18 12:30 09/03/18 08:50 Chloride IVPB 100 mls/hr Q8 CARMEN Administration Protocol Linezolid 600 mg in 300 mls @ 300 mls/hr 08/27/18 13:35 09/03/18 09:25 Zyvox 600mg/300ml D5w IVPB 300 mls/hr Q12 CARMEN Administration Protocol Propofol 1,000 mg in 100 mls @ 7.046 mls/hr 09/02/18 23:45 09/03/18 09:39 Diprivan IV 09/03/18 23:45 15 mcg/kg/min .[id number] CARMEN 7.046 mls/hr Titration Protocol 15 MCG/KG/MIN Insulin Detemir 12 units 08/26/18 14:00 09/03/18 08:59 Levemir SC 12 unit DAILY CARMEN Administration Insulin Human Lispro 0 units 08/13/18 11:30 09/03/18 07:19 Humalog SC 3 u ACHS CARMEN Administration Protocol Meclizine HCl 12.5 mg 08/13/18 09:00 08/18/18 09:27 Antivert PO 12.5 mg DAILY CARMEN Administration Metformin HCl 1,000 mg 08/13/18 09:00 08/16/18 09:34 Glucophage PO Not Given BID CARMEN Metoprolol Tartrate 50 mg 09/02/18 16:00 09/03/18 09:24 Lopressor PO 50 mg Q6 CARMEN Administration Pantoprazole Sodium 40 mg 09/01/18 14:00 09/03/18 08:53 Protonix Susp NG 40 mg DAILY CARMEN Administration Sucralfate 1 gm 08/14/18 20:30 08/18/18 22:07 Carafate Oral Susp PO 1 gm ACHS CARMEN Administration - Patient Studies Lab Studies: Lab Studies 09/03/18 09/03/18 09/03/18 Range/Units 05:30 05:30 04:45 WBC 16.8 H (4.8-10.8) K/uL RBC 3.90 (3.80-5.20) Mil/uL Hgb 11.3 L D (12.0-16.0) g/dL Hct 33.2 L (34.0-47.0) % MCV 85.0 D (81.0-99.0) fl MCH 29.0 (27.0-31.0) pg MCHC 34.1 (33.0-37.0) g/dL RDW 25.1 H (11.5-14.5) % Plt Count 440 H (130-400) K/uL MPV 8.3 (7.2-11.7) fl Neut % (Auto) 84.1 H (50.0-75.0) % Lymph % (Auto) 6.9 L (20.0-40.0) % [place] % (Auto) 7.9 (0.0-10.0) % Eos % (Auto) 0.6 (0.0-4.0) % Baso % (Auto) 0.5 (0.0-2.0) % Neut # (Auto) 14.1 H (1.8-7.0) K/uL Lymph # (Auto) 1.2 (1.0-4.3) K/uL [place] # (Auto) 1.3 H (0.0-0.8) K/uL Eos # (Auto) 0.1 (0.0-0.7) K/uL Baso # (Auto) 0.1 (0.0-0.2) K/uL ESR (0-30) mm/hr pCO2 (35-45) mm/Hg pO2 (80-100) mm/Hg HCO3 (21-28) mmol/L ABG pH (7.35-7.45) ABG Total CO2 (22-28) mmol/L ABG O2 Saturation (95-98) % ABG O2 Content (15-23) ML/dL ABG Base Excess (-2.0-3.0) mmol/L ABG Hemoglobin (11.7-17.4) g/dL ABG Carboxyhemoglobin (0.5-1.5) % POC ABG HHb (Measured) (0.0-5.0) % ABG Methemoglobin (0.0-3.0) % ABG O2 Capacity (16-24) mL/dL Masoud Test A-a O2 Difference mm/Hg Hgb O2 Saturation (95.0-98.0) % Vent Mode Mechanical Rate FiO2 % Tidal Volume PEEP Sodium 140 (132-148) mmol/l Potassium 3.7 (3.6-5.0) MMOL/L Chloride 106 (98-107) mmol/L Carbon Dioxide 21 L (22-30) mmol/L Anion Gap 17 (10-20) BUN 50 H (7-17) mg/dl Creatinine 2.1 H (0.7-1.2) mg/dl Est GFR ( Amer) 28 Est GFR (Non-Af Amer) 23 POC Glucose (mg/dL) 287 H (65-110) mg/dL Random Glucose 310 H (65-105) mg/dL Calcium 7.8 L (8.4-10.2) mg/dL Total Bilirubin 0.9 (0.2-1.3) mg/dl AST 34 (14-36) U/L ALT 41 (9-52) U/L Alkaline Phosphatase 164 H D (38-126) U/L Troponin I (0.00-0.120) ng/mL Total Protein 6.5 (6.3-8.2) G/DL Albumin 2.9 L (3.5-5.0) g/dL Globulin 3.6 (2.2-3.9) gm/dL Albumin/Globulin Ratio 0.8 L (1.0-2.1) Urine Color (YELLOW) Urine Clarity (Clear) Urine pH (5.0-8.0) Ur Specific [place] (1.003-1.030) Urine Protein (NEGATIVE) mg/dL Urine Glucose (UA) (NEGATIVE) mg/dL Urine Ketones (NEGATIVE) mg/dL Urine Blood (NEGATIVE) Urine Nitrate (NEGATIVE) Urine Bilirubin (NEGATIVE) Urine Urobilinogen (0.2-1.0) mg/dL Ur Leukocyte Esterase (Negative) Ct/uL Urine RBC (Auto) (0-3) /hpf Urine Microscopic WBC (0-5) /hpf Ur Squamous Epith Cells (0-5) /hpf Urine Bacteria (<OCC) Hyaline Casts (0-2) /hpf Urine Yeast (Budding) (NEGATIVE) /hpf Ur L.pneumophila Ag (NEGATIVE) Blood Type Antibody Screen Crossmatch BBK History Checked 09/03/18 09/02/18 09/02/18 Range/Units 04:00 21:02 16:49 WBC (4.8-10.8) K/uL RBC (3.80-5.20) Mil/uL Hgb (12.0-16.0) g/dL Hct (34.0-47.0) % MCV (81.0-99.0) fl MCH (27.0-31.0) pg MCHC (33.0-37.0) g/dL RDW (11.5-14.5) % Plt Count (130-400) K/uL MPV (7.2-11.7) fl Neut % (Auto) (50.0-75.0) % Lymph % (Auto) (20.0-40.0) % [place] % (Auto) (0.0-10.0) % Eos % (Auto) (0.0-4.0) % Baso % (Auto) (0.0-2.0) % Neut # (Auto) (1.8-7.0) K/uL Lymph # (Auto) (1.0-4.3) K/uL [place] # (Auto) (0.0-0.8) K/uL Eos # (Auto) (0.0-0.7) K/uL Baso # (Auto) (0.0-0.2) K/uL ESR (0-30) mm/hr pCO2 32 L (35-45) mm/Hg pO2 50 L (80-100) mm/Hg HCO3 23.3 (21-28) mmol/L ABG pH 7.44 (7.35-7.45) ABG Total CO2 22.7 (22-28) mmol/L ABG O2 Saturation 88.6 L (95-98) % ABG O2 Content 14.1 L (15-23) ML/dL ABG Base Excess -1.8 (-2.0-3.0) mmol/L ABG Hemoglobin 11.7 (11.7-17.4) g/dL ABG Carboxyhemoglobin 2.0 H (0.5-1.5) % POC ABG HHb (Measured) 11.0 H (0.0-5.0) % ABG Methemoglobin 1.4 (0.0-3.0) % ABG O2 Capacity 15.9 L (16-24) mL/dL Masoud Test Yes A-a O2 Difference 267.0 mm/Hg Hgb O2 Saturation 85.6 L (95.0-98.0) % Vent Mode A/c Mechanical Rate 10 FiO2 50.0 % Tidal Volume 400 PEEP 5 Sodium (132-148) mmol/l Potassium (3.6-5.0) MMOL/L Chloride (98-107) mmol/L Carbon Dioxide (22-30) mmol/L Anion Gap (10-20) BUN (7-17) mg/dl Creatinine (0.7-1.2) mg/dl Est GFR ( Amer) Est GFR (Non-Af Amer) POC Glucose (mg/dL) 253 H 266 H (65-110) mg/dL Random Glucose (65-105) mg/dL Calcium (8.4-10.2) mg/dL Total Bilirubin (0.2-1.3) mg/dl AST (14-36) U/L ALT (9-52) U/L Alkaline Phosphatase (38-126) U/L Troponin I (0.00-0.120) ng/mL Total Protein (6.3-8.2) G/DL Albumin (3.5-5.0) g/dL Globulin (2.2-3.9) gm/dL Albumin/Globulin Ratio (1.0-2.1) Urine Color (YELLOW) Urine Clarity (Clear) Urine pH (5.0-8.0) Ur Specific [place] (1.003-1.030) Urine Protein (NEGATIVE) mg/dL Urine Glucose (UA) (NEGATIVE) mg/dL Urine Ketones (NEGATIVE) mg/dL Urine Blood (NEGATIVE) Urine Nitrate (NEGATIVE) Urine Bilirubin (NEGATIVE) Urine Urobilinogen (0.2-1.0) mg/dL Ur Leukocyte Esterase (Negative) Ct/uL Urine RBC (Auto) (0-3) /hpf Urine Microscopic WBC (0-5) /hpf Ur Squamous Epith Cells (0-5) /hpf Urine Bacteria (<OCC) Hyaline Casts (0-2) /hpf Urine Yeast (Budding) (NEGATIVE) /hpf Ur L.pneumophila Ag (NEGATIVE) Blood Type Antibody Screen Crossmatch BBK History Checked 09/02/18 09/02/18 09/02/18 Range/Units 15:42 11:21 11:00 WBC (4.8-10.8) K/uL RBC (3.80-5.20) Mil/uL Hgb (12.0-16.0) g/dL Hct (34.0-47.0) % MCV (81.0-99.0) fl MCH (27.0-31.0) pg MCHC (33.0-37.0) g/dL RDW (11.5-14.5) % Plt Count (130-400) K/uL MPV (7.2-11.7) fl Neut % (Auto) (50.0-75.0) % Lymph % (Auto) (20.0-40.0) % [place] % (Auto) (0.0-10.0) % Eos % (Auto) (0.0-4.0) % Baso % (Auto) (0.0-2.0) % Neut # (Auto) (1.8-7.0) K/uL Lymph # (Auto) (1.0-4.3) K/uL [place] # (Auto) (0.0-0.8) K/uL Eos # (Auto) (0.0-0.7) K/uL Baso # (Auto) (0.0-0.2) K/uL ESR 100 H (0-30) mm/hr pCO2 (35-45) mm/Hg pO2 (80-100) mm/Hg HCO3 (21-28) mmol/L ABG pH (7.35-7.45) ABG Total CO2 (22-28) mmol/L ABG O2 Saturation (95-98) % ABG O2 Content (15-23) ML/dL ABG Base Excess (-2.0-3.0) mmol/L ABG Hemoglobin (11.7-17.4) g/dL ABG Carboxyhemoglobin (0.5-1.5) % POC ABG HHb (Measured) (0.0-5.0) % ABG Methemoglobin (0.0-3.0) % ABG O2 Capacity (16-24) mL/dL Masoud Test A-a O2 Difference mm/Hg Hgb O2 Saturation (95.0-98.0) % Vent Mode Mechanical Rate FiO2 % Tidal Volume PEEP Sodium (132-148) mmol/l Potassium (3.6-5.0) MMOL/L Chloride (98-107) mmol/L Carbon Dioxide (22-30) mmol/L Anion Gap (10-20) BUN (7-17) mg/dl Creatinine (0.7-1.2) mg/dl Est GFR ( Amer) Est GFR (Non-Af Amer) POC Glucose (mg/dL) 225 H (65-110) mg/dL Random Glucose (65-105) mg/dL Calcium (8.4-10.2) mg/dL Total Bilirubin (0.2-1.3) mg/dl AST (14-36) U/L ALT (9-52) U/L Alkaline Phosphatase (38-126) U/L Troponin I (0.00-0.120) ng/mL Total Protein (6.3-8.2) G/DL Albumin (3.5-5.0) g/dL Globulin (2.2-3.9) gm/dL Albumin/Globulin Ratio (1.0-2.1) Urine Color Yellow (YELLOW) Urine Clarity Cloudy (Clear) Urine pH 5.0 (5.0-8.0) Ur Specific [place] 1.017 (1.003-1.030) Urine Protein 30 (NEGATIVE) mg/dL Urine Glucose (UA) Neg (NEGATIVE) mg/dL Urine Ketones Negative (NEGATIVE) mg/dL Urine Blood Small (NEGATIVE) Urine Nitrate Negative (NEGATIVE) Urine Bilirubin Negative (NEGATIVE) Urine Urobilinogen 0.2-1.0 (0.2-1.0) mg/dL Ur Leukocyte Esterase Large (Negative) Ct/uL Urine RBC (Auto) 7 H (0-3) /hpf Urine Microscopic WBC 15 H (0-5) /hpf Ur Squamous Epith Cells 1 (0-5) /hpf Urine Bacteria Occ H (<OCC) Hyaline Casts 6-10 H (0-2) /hpf Urine Yeast (Budding) Many H (NEGATIVE) /hpf Ur L.pneumophila Ag (NEGATIVE) Blood Type Antibody Screen Crossmatch BBK History Checked 09/02/18 09/02/18 09/01/18 Range/Units 11:00 10:15 16:45 WBC (4.8-10.8) K/uL RBC (3.80-5.20) Mil/uL Hgb (12.0-16.0) g/dL Hct (34.0-47.0) % MCV (81.0-99.0) fl MCH (27.0-31.0) pg MCHC (33.0-37.0) g/dL RDW (11.5-14.5) % Plt Count (130-400) K/uL MPV (7.2-11.7) fl Neut % (Auto) (50.0-75.0) % Lymph % (Auto) (20.0-40.0) % [place] % (Auto) (0.0-10.0) % Eos % (Auto) (0.0-4.0) % Baso % (Auto) (0.0-2.0) % Neut # (Auto) (1.8-7.0) K/uL Lymph # (Auto) (1.0-4.3) K/uL [place] # (Auto) (0.0-0.8) K/uL Eos # (Auto) (0.0-0.7) K/uL Baso # (Auto) (0.0-0.2) K/uL ESR (0-30) mm/hr pCO2 (35-45) mm/Hg pO2 (80-100) mm/Hg HCO3 (21-28) mmol/L ABG pH (7.35-7.45) ABG Total CO2 (22-28) mmol/L ABG O2 Saturation (95-98) % ABG O2 Content (15-23) ML/dL ABG Base Excess (-2.0-3.0) mmol/L ABG Hemoglobin (11.7-17.4) g/dL ABG Carboxyhemoglobin (0.5-1.5) % POC ABG HHb (Measured) (0.0-5.0) % ABG Methemoglobin (0.0-3.0) % ABG O2 Capacity (16-24) mL/dL Masoud Test A-a O2 Difference mm/Hg Hgb O2 Saturation (95.0-98.0) % Vent Mode Mechanical Rate FiO2 % Tidal Volume PEEP Sodium (132-148) mmol/l Potassium (3.6-5.0) MMOL/L Chloride (98-107) mmol/L Carbon Dioxide (22-30) mmol/L Anion Gap (10-20) BUN (7-17) mg/dl Creatinine (0.7-1.2) mg/dl Est GFR ( Amer) Est GFR (Non-Af Amer) POC Glucose (mg/dL) (65-110) mg/dL Random Glucose (65-105) mg/dL Calcium (8.4-10.2) mg/dL Total Bilirubin (0.2-1.3) mg/dl AST (14-36) U/L ALT (9-52) U/L Alkaline Phosphatase (38-126) U/L Troponin I 1.1800 H* (0.00-0.120) ng/mL Total Protein (6.3-8.2) G/DL Albumin (3.5-5.0) g/dL Globulin (2.2-3.9) gm/dL Albumin/Globulin Ratio (1.0-2.1) Urine Color (YELLOW) Urine Clarity (Clear) Urine pH (5.0-8.0) Ur Specific [place] (1.003-1.030) Urine Protein (NEGATIVE) mg/dL Urine Glucose (UA) (NEGATIVE) mg/dL Urine Ketones (NEGATIVE) mg/dL Urine Blood (NEGATIVE) Urine Nitrate (NEGATIVE) Urine Bilirubin (NEGATIVE) Urine Urobilinogen (0.2-1.0) mg/dL Ur Leukocyte Esterase (Negative) Ct/uL Urine RBC (Auto) (0-3) /hpf Urine Microscopic WBC (0-5) /hpf Ur Squamous Epith Cells (0-5) /hpf Urine Bacteria (<OCC) Hyaline Casts (0-2) /hpf Urine Yeast (Budding) (NEGATIVE) /hpf Ur L.pneumophila Ag Negative (NEGATIVE) Blood Type O POSITIVE Antibody Screen Negative Crossmatch See Detail BBK History Checked Patient has bt Laboratory Results - last 24 hr 09/01/18 09/02/18 09/02/18 16:45 10:15 11:00 WBC RBC Hgb Hct MCV MCH MCHC RDW Plt Count MPV Neut % (Auto) Lymph % (Auto) [place] % (Auto) Eos % (Auto) Baso % (Auto) Neut # (Auto) Lymph # (Auto) [place] # (Auto) Eos # (Auto) Baso # (Auto) ESR pCO2 pO2 HCO3 ABG pH ABG Total CO2 ABG O2 Saturation ABG O2 Content ABG Base Excess ABG Hemoglobin ABG Carboxyhemoglobin POC ABG HHb (Measured) ABG Methemoglobin ABG O2 Capacity Masoud Test A-a O2 Difference Hgb O2 Saturation Vent Mode Mechanical Rate FiO2 Tidal Volume PEEP Sodium Potassium Chloride Carbon Dioxide Anion Gap BUN Creatinine Est GFR ( Amer) Est GFR (Non-Af Amer) POC Glucose (mg/dL) Random Glucose Calcium Total Bilirubin AST ALT Alkaline Phosphatase Troponin I 1.1800 H* Total Protein Albumin Globulin Albumin/Globulin Ratio Urine Color Urine Clarity Urine pH Ur Specific [place] Urine Protein Urine Glucose (UA) Urine Ketones Urine Blood Urine Nitrate Urine Bilirubin Urine Urobilinogen Ur Leukocyte Esterase Urine RBC (Auto) Urine Microscopic WBC Ur Squamous Epith Cells Urine Bacteria Hyaline Casts Urine Yeast (Budding) Ur L.pneumophila Ag Negative Blood Type O POSITIVE Antibody Screen Negative Crossmatch See Detail BBK History Checked Patient has bt 09/02/18 09/02/18 09/02/18 11:00 11:21 15:42 WBC RBC Hgb Hct MCV MCH MCHC RDW Plt Count MPV Neut % (Auto) Lymph % (Auto) [place] % (Auto) Eos % (Auto) Baso % (Auto) Neut # (Auto) Lymph # (Auto) [place] # (Auto) Eos # (Auto) Baso # (Auto) ESR 100 H pCO2 pO2 HCO3 ABG pH ABG Total CO2 ABG O2 Saturation ABG O2 Content ABG Base Excess ABG Hemoglobin ABG Carboxyhemoglobin POC ABG HHb (Measured) ABG Methemoglobin ABG O2 Capacity Masoud Test A-a O2 Difference Hgb O2 Saturation Vent Mode Mechanical Rate FiO2 Tidal Volume PEEP Sodium Potassium Chloride Carbon Dioxide Anion Gap BUN Creatinine Est GFR ( Amer) Est GFR (Non-Af Amer) POC Glucose (mg/dL) 225 H Random Glucose Calcium Total Bilirubin AST ALT Alkaline Phosphatase Troponin I Total Protein Albumin Globulin Albumin/Globulin Ratio Urine Color Yellow Urine Clarity Cloudy Urine pH 5.0 Ur Specific [place] 1.017 Urine Protein 30 Urine Glucose (UA) Neg Urine Ketones Negative Urine Blood Small Urine Nitrate Negative Urine Bilirubin Negative Urine Urobilinogen 0.2-1.0 Ur Leukocyte Esterase Large Urine RBC (Auto) 7 H Urine Microscopic WBC 15 H Ur Squamous Epith Cells 1 Urine Bacteria Occ H Hyaline Casts 6-10 H Urine Yeast (Budding) Many H Ur L.pneumophila Ag Blood Type Antibody Screen Crossmatch BBK History Checked 09/02/18 09/02/18 09/03/18 16:49 21:02 04:00 WBC RBC Hgb Hct MCV MCH MCHC RDW Plt Count MPV Neut % (Auto) Lymph % (Auto) [place] % (Auto) Eos % (Auto) Baso % (Auto) Neut # (Auto) Lymph # (Auto) [place] # (Auto) Eos # (Auto) Baso # (Auto) ESR pCO2 32 L pO2 50 L HCO3 23.3 ABG pH 7.44 ABG Total CO2 22.7 ABG O2 Saturation 88.6 L ABG O2 Content 14.1 L ABG Base Excess -1.8 ABG Hemoglobin 11.7 ABG Carboxyhemoglobin 2.0 H POC ABG HHb (Measured) 11.0 H ABG Methemoglobin 1.4 ABG O2 Capacity 15.9 L Masoud Test Yes A-a O2 Difference 267.0 Hgb O2 Saturation 85.6 L Vent Mode A/c Mechanical Rate 10 FiO2 50.0 Tidal Volume 400 PEEP 5 Sodium Potassium Chloride Carbon Dioxide Anion Gap BUN Creatinine Est GFR ( Amer) Est GFR (Non-Af Amer) POC Glucose (mg/dL) 266 H 253 H Random Glucose Calcium Total Bilirubin AST ALT Alkaline Phosphatase Troponin I Total Protein Albumin Globulin Albumin/Globulin Ratio Urine Color Urine Clarity Urine pH Ur Specific [place] Urine Protein Urine Glucose (UA) Urine Ketones Urine Blood Urine Nitrate Urine Bilirubin Urine Urobilinogen Ur Leukocyte Esterase Urine RBC (Auto) Urine Microscopic WBC Ur Squamous Epith Cells Urine Bacteria Hyaline Casts Urine Yeast (Budding) Ur L.pneumophila Ag Blood Type Antibody Screen Crossmatch BBK History Checked 09/03/18 09/03/18 09/03/18 04:45 05:30 05:30 WBC 16.8 H RBC 3.90 Hgb 11.3 L D Hct 33.2 L MCV 85.0 D MCH 29.0 MCHC 34.1 RDW 25.1 H Plt Count 440 H MPV 8.3 Neut % (Auto) 84.1 H Lymph % (Auto) 6.9 L [place] % (Auto) 7.9 Eos % (Auto) 0.6 Baso % (Auto) 0.5 Neut # (Auto) 14.1 H Lymph # (Auto) 1.2 [place] # (Auto) 1.3 H Eos # (Auto) 0.1 Baso # (Auto) 0.1 ESR pCO2 pO2 HCO3 ABG pH ABG Total CO2 ABG O2 Saturation ABG O2 Content ABG Base Excess ABG Hemoglobin ABG Carboxyhemoglobin POC ABG HHb (Measured) ABG Methemoglobin ABG O2 Capacity Masoud Test A-a O2 Difference Hgb O2 Saturation Vent Mode Mechanical Rate FiO2 Tidal Volume PEEP Sodium 140 Potassium 3.7 Chloride 106 Carbon Dioxide 21 L Anion Gap 17 BUN 50 H Creatinine 2.1 H Est GFR ( Amer) 28 Est GFR (Non-Af Amer) 23 POC Glucose (mg/dL) 287 H Random Glucose 310 H Calcium 7.8 L Total Bilirubin 0.9 AST 34 ALT 41 Alkaline Phosphatase 164 H D Troponin I Total Protein 6.5 Albumin 2.9 L Globulin 3.6 Albumin/Globulin Ratio 0.8 L Urine Color Urine Clarity Urine pH Ur Specific [place] Urine Protein Urine Glucose (UA) Urine Ketones Urine Blood Urine Nitrate Urine Bilirubin Urine Urobilinogen Ur Leukocyte Esterase Urine RBC (Auto) Urine Microscopic WBC Ur Squamous Epith Cells Urine Bacteria Hyaline Casts Urine Yeast (Budding) Ur L.pneumophila Ag Blood Type Antibody Screen Crossmatch BBK History Checked Fingerstick Blood Sugar Results: 287 Assessment/Plan - Assessment and Plan (Free Text) Assessment: IMPRESSION/MAJOR PROBLEMS: S/p Cardiac Arrest, Acute resp failure Pneumonia, Aspiration Vs VAP Acute/Subacute NSTEMI VRE Bacteremia/Sepsis, Coag neg Staph [place], : ATN: stable GI symptoms/GB / Biliary Tract disease Pulmonary edema/Congestion : worsening DVT Anemia CVA DM-II HTN Hypokalemia : improved PLAN: - Increased Lasix to 80 mg IV q 12 H : due to worsening pulm edema , worsening infiltrate/pneumonia and Effusion, - On lovenox for NSTEMI, and DVT, has mils hematuria, due to hughes's trauma, will continue lovenox , adjust to dose for low GFR, follow up Cardio recommendations (Worsening renal function) - - Staph coag neg Bacteremia/ VRE, C/w Lisa and Linezolid as per ID, follow up further recommendations of worsening infiltrate on CXR - S/p VEEG, CT: no acute changes, MRI as per neuro to r/o causes for worsening weakness before intubation - H/H drop plus comorbidity, Transfused 2 U pRBCs, Hb improved from 7 to 11 - C/w Lovenox 80mg SC daily,which is a renal adjusted dose for DVT Rx ABG was done twice and Vent setting adjusted, now Fio; 80%, VT 400, Rate 10/m PEEP: 5 - C/w Metoprolol 50 Q8H /Norvasc 5mg BID/Hydralazine 100 Q8H - C/w Insulin Leve 12 U SC daily and Lispro - C/w Protonix
[2018-09-03 11:06] LABS: BANDS 1 % (0-2); LYMPHOCYTE 7 % (20-50); MONOCYTE 8 % (0-10); NEUTROPHIL 84 % (42-75); NUCLEATED RED BLOOD CELL 1 % (0-0); PLATELET ESTIMATE INCREASED (NORMAL); TOTAL CELLS COUNTED 100
[2018-09-03 11:07] LABS: ANISOCYTOSIS MARKED; GIANT PLATELETS PRESENT; HYPOCHROMIC SLIGHT; OVALOCYTES SLIGHT; SCHISTOCYTES SLIGHT; TEARDROP CELLS SLIGHT
--- NOTE | 2018-09-03 13:09 | CP.PCM.PN ---
Subjective - Date & Time of Evaluation Date of Evaluation: 09/03/18 Time of Evaluation: 13:07 - Subjective Subjective: Nephrology Consultation Note Assessment: critical acute kidney injury related to multifactorial including sepsis Respiratory failure Sepsis [place] hypernatremia recommendation A[place]A stable today non oliguric continue supportive measures, avoid hypotension dose abx and meds for reduced eGFR metformin on hold Subjective: Noted events overnight. Patients intubated Physical Examination: General Appearance: orally intubated and restless Vitals reviewed and noted as below Head; Atraumatic, normocephalic Neck; supple no lymphadenopathy, no thyromegaly or bruit Lungs: Normal respiratory rate/effort. Breath sounds bilateral reduced at bases Heart: Normal rate. s1s2 normal. No rub or gallop. Extremities: trace edema. No varicose veins Neurological: Patient is sedated Skin: Warm and dry. Normal turgor. No rash. Palpitation: Normal elasticity for age Abdomen: Abdomen is soft. Bowel sounds +. There is no abdominal tenderness, no guarding/rigidity no organomegaly Psych: unable MSK: no joint tenderness or swelling. Digits and nails normal, no deformity : kidney or bladder not palpable Labs/imaging reviewed. Past medical history, past surgical history, family history, social history, allergy reviewed and noted as below Family hx: no hx of CKD. Rest non-contributory Objective - Vital Signs/Intake and Output Vital Signs (last 24 hours): Temp Pulse Resp BP Pulse Ox 99.5 F 118 H 25 H 130/62 99 09/03/18 12:00 09/03/18 12:00 09/03/18 12:00 09/03/18 12:00 09/03/18 12:00 Intake and Output: 09/03/18 09/03/18 06:59 18:59 Intake Total 1969 1050 Output Total 800 Balance 1169 1050 - Medications Medications: Current Medications Acetaminophen (Tylenol 650mg/20.3ml Solution Ud) 650 mg NG Q6 PRN PRN Reason: Temperature Last Admin: 08/25/18 01:06 Dose: 650 mg Acetaminophen (Tylenol 650mg/20.3ml Solution Ud) 650 mg PO Q6 PRN PRN Reason: Pain, Mild (1-3) Last Admin: 09/02/18 05:54 Dose: 650 mg Albuterol/Ipratropium (Duoneb 3 Mg/0.5 Mg (3 Ml) Ud) 3 ml INH RQ6 PRN PRN Reason: Shortness of Breath Last Admin: 08/31/18 22:00 Dose: 3 ml Amlodipine Besylate (Norvasc) 5 mg PO Q12 [facility] Last Admin: 09/03/18 08:53 Dose: 5 mg Aspirin (Aspirin Chewable) 81 mg PO DAILY [facility] Last Admin: 09/03/18 08:55 Dose: 81 mg Enoxaparin Sodium (Lovenox) 80 mg SC DAILY [facility]; Protocol Last Admin: 09/03/18 09:24 Dose: 80 mg Furosemide (Lasix) 40 mg IV DAILY [facility] Last Admin: 09/03/18 08:55 Dose: 40 mg Hydralazine HCl (Apresoline) 100 mg PO Q8 [facility] Last Admin: 09/03/18 08:52 Dose: 100 mg Meropenem 500 mg/ Sodium (Chloride) 100 mls @ 100 mls/hr IVPB Q8 [facility]; Protocol Last Admin: 09/03/18 08:50 Dose: 100 mls/hr Linezolid (Zyvox 600mg/300ml D5w) 600 mg in 300 mls @ 300 mls/hr IVPB Q12 [facility]; Protocol Last Admin: 09/03/18 09:25 Dose: 300 mls/hr Propofol (Diprivan) 1,000 mg in 100 mls @ 7.046 mls/hr IV .[id number] [facility]; Protocol Stop: 09/03/18 23:45 Last Titration: 09/03/18 09:39 Dose: 15 mcg/kg/min, 7.046 mls/hr Insulin Detemir (Levemir) 12 units SC DAILY [facility] Last Admin: 09/03/18 08:59 Dose: 12 unit Insulin Human Lispro (Humalog) 0 units SC ACHS [facility]; Protocol Last Admin: 09/03/18 11:13 Dose: 4 u Meclizine HCl (Antivert) 12.5 mg PO DAILY [facility] Last Admin: 08/18/18 09:27 Dose: 12.5 mg Metformin HCl (Glucophage) 1,000 mg PO BID [facility] Last Admin: 08/16/18 09:34 Dose: Not Given Metoprolol Tartrate (Lopressor) 50 mg PO Q6 [facility] Last Admin: 09/03/18 09:24 Dose: 50 mg Pantoprazole Sodium (Protonix Susp) 40 mg NG DAILY [facility] Last Admin: 09/03/18 08:53 Dose: 40 mg Sucralfate (Carafate Oral Susp) 1 gm PO ACHS [facility] Last Admin: 08/18/18 22:07 Dose: 1 gm - Labs Labs: 09/03/18 05:30 09/03/18 05:30 PT 13.3 Seconds (9.8-13.1) H 08/25/18 05:00 INR 1.2 08/25/18 05:00 APTT 29.9 Seconds (25.6-37.1) 08/25/18 05:00
--- NOTE | 2018-09-03 14:41 | CP.PCM.PN ---
Subjective - Date & Time of Evaluation Date of Evaluation: 09/03/18 Time of Evaluation: 13:20 - Subjective Subjective: F/U Respiratory failure, PNA intubated Objective - Vital Signs/Intake and Output Vital Signs (last 24 hours): Temp Pulse Resp BP Pulse Ox 99.5 F 65 19 114/51 L 100 09/03/18 12:00 09/03/18 14:00 09/03/18 14:00 09/03/18 14:00 09/03/18 14:00 Intake and Output: 09/03/18 09/03/18 06:59 18:59 Intake Total 1969 1150 Output Total 800 Balance 1169 1150 - Medications Medications: Current Medications Acetaminophen (Tylenol 650mg/20.3ml Solution Ud) 650 mg NG Q6 PRN PRN Reason: Temperature Last Admin: 08/25/18 01:06 Dose: 650 mg Acetaminophen (Tylenol 650mg/20.3ml Solution Ud) 650 mg PO Q6 PRN PRN Reason: Pain, Mild (1-3) Last Admin: 09/02/18 05:54 Dose: 650 mg Albuterol/Ipratropium (Duoneb 3 Mg/0.5 Mg (3 Ml) Ud) 3 ml INH RQ6 PRN PRN Reason: Shortness of Breath Last Admin: 08/31/18 22:00 Dose: 3 ml Amlodipine Besylate (Norvasc) 5 mg PO Q12 [facility] Last Admin: 09/03/18 08:53 Dose: 5 mg Aspirin (Aspirin Chewable) 81 mg PO DAILY [facility] Last Admin: 09/03/18 08:55 Dose: 81 mg Enoxaparin Sodium (Lovenox) 80 mg SC DAILY [facility]; Protocol Last Admin: 09/03/18 09:24 Dose: 80 mg Furosemide (Lasix) 40 mg IV DAILY [facility] Last Admin: 09/03/18 08:55 Dose: 40 mg Hydralazine HCl (Apresoline) 100 mg PO Q8 [facility] Last Admin: 09/03/18 08:52 Dose: 100 mg Meropenem 500 mg/ Sodium (Chloride) 100 mls @ 100 mls/hr IVPB Q8 [facility]; Protocol Last Admin: 09/03/18 08:50 Dose: 100 mls/hr Linezolid (Zyvox 600mg/300ml D5w) 600 mg in 300 mls @ 300 mls/hr IVPB Q12 [facility]; Protocol Last Admin: 09/03/18 09:25 Dose: 300 mls/hr Propofol (Diprivan) 1,000 mg in 100 mls @ 7.046 mls/hr IV .[id number] [facility]; Protocol Stop: 09/03/18 23:45 Last Titration: 09/03/18 09:39 Dose: 15 mcg/kg/min, 7.046 mls/hr Insulin Detemir (Levemir) 12 units SC DAILY [facility] Last Admin: 09/03/18 08:59 Dose: 12 unit Insulin Human Lispro (Humalog) 0 units SC [facility]; Protocol Last Admin: 09/03/18 11:13 Dose: 4 u Meclizine HCl (Antivert) 12.5 mg PO DAILY [facility] Last Admin: 08/18/18 09:27 Dose: 12.5 mg Metformin HCl (Glucophage) 1,000 mg PO BID [facility] Last Admin: 08/16/18 09:34 Dose: Not Given Metoprolol Tartrate (Lopressor) 50 mg PO Q6 [facility] Last Admin: 09/03/18 09:24 Dose: 50 mg Pantoprazole Sodium (Protonix Susp) 40 mg NG DAILY [facility] Last Admin: 09/03/18 08:53 Dose: 40 mg Sucralfate (Carafate Oral Susp) 1 gm PO [facility] Last Admin: 08/18/18 22:07 Dose: 1 gm - Labs Labs: 09/03/18 05:30 09/03/18 05:30 PT 13.3 Seconds (9.8-13.1) H 08/25/18 05:00 INR 1.2 08/25/18 05:00 APTT 29.9 Seconds (25.6-37.1) 08/25/18 05:00 - Constitutional Appears: No Acute Distress - Head Exam Head Exam: NORMAL INSPECTION - Eye Exam Eye Exam: PERRL - ENT Exam Additional comments: Intubated. OG tube in place - Neck Exam Neck Exam: Normal Inspection - Respiratory Exam Respiratory Exam: Decreased Breath Sounds (b/l), Rhonchi (b/l) - Cardiovascular Exam Cardiovascular Exam: REGULAR RHYTHM, Murmur (systolic) - GI/Abdominal Exam GI & Abdominal Exam: Soft, Normal Bowel Sounds - Exam Additional comments: Jin Cath - Extremities Exam Additional comments: Edema U/E, L/E - Neurological Exam Neurological Exam: Awake Additional comments: Intubated, sedated, open eyes to verbal and tactile stimuli, movements in all extremities - Skin Skin Exam: Warm Assessment and Plan (1) Acute respiratory failure Status: Acute (2) Cardiac arrest Status: Acute (3) Aspiration pneumonia Status: Acute (4) Pleural effusion Status: Acute (5) Atelectasis of both lungs Status: Acute (6) NSTEMI (non-ST elevated myocardial infarction) Status: Acute (7) CHF (congestive heart failure) Status: Acute (8) DVT (deep venous thrombosis) Status: Acute (9) Severe anemia Status: Acute - Assessment and Plan (Free Text) Plan: continue ventilatory support, on AC-PRVC FIO2 down [id number]% to 80%,CXR CHF, continue DuoNeb, Merren, Zyvox, Diflucan, Lovenox and rest of treatment, f/u CXR Critical care time: 35 min.
[2018-09-03] MEDS: Propofol 10 mg/ml 1,000 MG/100 ML VIAL IV SCH (16:03)
[2018-09-03] MEDS: Fluconazole IV 100mg/50 ml NS 50 ML IVPB SCH (17:06)
--- NOTE | 2018-09-03 23:18 | CP.PCM.PN ---
Subjective - Date & Time of Evaluation Date of Evaluation: 09/03/18 Time of Evaluation: 16:00 - Subjective Subjective: PT SEEN AND EXAMINED. CASE DW CRITICAL CARE ATTENDING. XRAYS, MEDS, AND LABS REVIEWED PT WITH INCREASING CR. HB DECREASED DESPITE VOLUME CONTRACTURE. S/P TRANSFUSION. PT NONVERBAL ON VENT. APPEARS MILDLY UNCOMFORTABLE. Objective - Vital Signs/Intake and Output Vital Signs (last 24 hours): Temp Pulse Resp BP Pulse Ox 99.3 F 65 19 117/51 L 99 09/03/18 16:00 09/03/18 22:12 09/03/18 18:00 09/03/18 22:12 09/03/18 18:00 Intake and Output: 09/03/18 09/04/18 18:59 06:59 Intake Total 1800 Output Total 900 Balance 900 - Medications Medications: Current Medications Acetaminophen (Tylenol 650mg/20.3ml Solution Ud) 650 mg NG Q6 PRN PRN Reason: Temperature Last Admin: 08/25/18 01:06 Dose: 650 mg Acetaminophen (Tylenol 650mg/20.3ml Solution Ud) 650 mg PO Q6 PRN PRN Reason: Pain, Mild (1-3) Last Admin: 09/02/18 05:54 Dose: 650 mg Albuterol/Ipratropium (Duoneb 3 Mg/0.5 Mg (3 Ml) Ud) 3 ml INH RQ6 PRN PRN Reason: Shortness of Breath Last Admin: 08/31/18 22:00 Dose: 3 ml Amlodipine Besylate (Norvasc) 5 mg PO Q12 [facility] Last Admin: 09/03/18 21:11 Dose: 5 mg Aspirin (Aspirin Chewable) 81 mg PO DAILY [facility] Last Admin: 09/03/18 08:55 Dose: 81 mg Enoxaparin Sodium (Lovenox) 80 mg SC DAILY [facility]; Protocol Last Admin: 09/03/18 09:24 Dose: 80 mg Hydralazine HCl (Apresoline) 100 mg PO Q8 [facility] Last Admin: 09/03/18 16:07 Dose: 100 mg Meropenem 500 mg/ Sodium (Chloride) 100 mls @ 100 mls/hr IVPB Q8 [facility]; Protocol Last Admin: 09/03/18 16:10 Dose: 100 mls/hr Linezolid (Zyvox 600mg/300ml D5w) 600 mg in 300 mls @ 300 mls/hr IVPB Q12 [facility]; Protocol Last Admin: 09/03/18 21:12 Dose: 300 mls/hr Propofol (Diprivan) 1,000 mg in 100 mls @ 7.046 mls/hr IV .[id number] [facility]; Protocol Stop: 09/03/18 23:45 Last Admin: 09/03/18 16:03 Dose: 15 mcg/kg/min, 7.046 mls/hr Fluconazole (Diflucan Iv 100 Mg/50 Ml Ns) 50 mls @ 50 mls/hr IVPB DAILY [facility]; Protocol Stop: 09/09/18 12:00 Last Admin: 09/03/18 17:06 Dose: 50 mls/hr Insulin Detemir (Levemir) 12 units SC DAILY [facility] Last Admin: 09/03/18 08:59 Dose: 12 unit Insulin Human Lispro (Humalog) 0 units SC [facility]; Protocol Last Admin: 09/03/18 22:13 Dose: Not Given Meclizine HCl (Antivert) 12.5 mg PO DAILY [facility] Last Admin: 08/18/18 09:27 Dose: 12.5 mg Metformin HCl (Glucophage) 1,000 mg PO BID [facility] Last Admin: 08/16/18 09:34 Dose: Not Given Metoprolol Tartrate (Lopressor) 50 mg PO Q6 [facility] Last Admin: 09/03/18 22:12 Dose: 50 mg Pantoprazole Sodium (Protonix Susp) 40 mg NG DAILY [facility] Last Admin: 09/03/18 08:53 Dose: 40 mg Sucralfate (Carafate Oral Susp) 1 gm PO [facility] Last Admin: 08/18/18 22:07 Dose: 1 gm - Labs Labs: 09/03/18 05:30 09/03/18 05:30 PT 13.3 Seconds (9.8-13.1) H 08/25/18 05:00 INR 1.2 08/25/18 05:00 APTT 29.9 Seconds (25.6-37.1) 08/25/18 05:00 - Constitutional Appears: Well - Head Exam Head Exam: ATRAUMATIC, NORMAL INSPECTION, NORMOCEPHALIC - Eye Exam Eye Exam: EOMI, Normal appearance, PERRL. absent: Conjunctival injection, Nystagmus, Periorbital swelling, Periorbital tenderness, Scleral icterus Pupil Exam: NORMAL ACCOMODATION, PERRL - ENT Exam ENT Exam: Mucous Membranes Dry, Normal Exam. absent: Mucous Membranes Moist, Normal External Ear Exam, Normal Oropharynx, TM's Normal Bilaterally - Neck Exam Neck Exam: Full ROM, Normal Inspection. absent: Lymphadenopathy - Respiratory Exam Respiratory Exam: Clear to Ausculation Bilateral. absent: Accessory Muscle Use, Chest Wall Tenderness, Decreased Breath Sounds, Prolonged Expiratory Phase, Rales, Rhonchi, Wheezes, Respiratory Distress, Stridor Additional comments: ON VENT - Cardiovascular Exam Cardiovascular Exam: REGULAR RHYTHM, +S1, +S2, Murmur. absent: Bradycardia, Tachycardia, Clicks, Diastolic murmur, Gallop, Irregular Rhythm, JVD, RRR, Rubs, +S4 - GI/Abdominal Exam GI & Abdominal Exam: Soft, Normal Bowel Sounds. absent: Bruit, Distended, Firm, Guarding, Rigid, Tenderness, Diminished Bowel Sounds, Hernia, Hyperactive Bowel Sounds, Hypoactive Bowel Sounds, Organomegaly, Pulsatile Mass, Rebound, Mass - Rectal Exam Rectal Exam: Deferred - Extremities Exam Extremities Exam: Normal Capillary Refill, Pedal Edema - Back Exam Back Exam: NORMAL INSPECTION. absent: CVA tenderness (L), CVA tenderness (R), Full ROM, muscle spasm, paraspinal tenderness, rash noted, tenderness, vertebral tenderness - Neurological Exam Additional comments: SEDATED, INTUBATED, MOVING ALL EXTREMITIES - Psychiatric Exam Psychiatric exam: absent: Agitated, Anxious, Depressed, Flat Affect, Homicidal Ideation, Manic, Suicidal Ideation Additional comments: SEDATED - Skin Skin Exam: Dry, Intact, Normal Color, Warm. absent: Abrasion, Cyanosis, Diaphoretic, Erythema, Mottled, Pallor, Pallor, Petechiae, Rash, Urticaria, Ve sicles Assessment and Plan (1) A[place]A (acute kidney injury) Status: Acute (2) Acute respiratory failure Status: Acute (3) Mental status alteration Status: Acute (4) NSTEMI (non-ST elevated myocardial infarction) Status: Acute (5) Abnormal EKG Status: Chronic (6) Type 2 diabetes mellitus with hyperglycemia Status: Chronic (7) Hypertension Status: Chronic (8) DVT (deep venous thrombosis) Status: Acute (9) Severe anemia Status: Acute (10) Nausea & vomiting Status: Resolved (11) Acute hypernatremia Status: Resolved - Assessment and Plan (Free Text) Plan: PT WITH B/L EFFUSIONS AND B/L INFILTRATES ON CXR. EF IS NORMAL, DIASTOLIC FUNCTION IS NORMAL FOR AGE. PT WITH NML BUN CR ON ADMISSION WITH NO UNDERLYING RENAL OR CARDIAC DISEASE. PTS ORIGINAL SYMPTOMS UNLIKELY ANGINAL EQUIVALENT THEY WERE IMPROVED WITH ANT-ACIDS. PT CLEARLY HAS 3RD SPACING AND IS INTRAVASCULARLY DRY. WOULD CONSIDER POSSIBLE ARDS CHF IS LESS LIKELY GIVEN ALL ABOVE. SHOULD CONSIDER THORACENTESIS FOR PLEURAL EFFUSIONS. MAY CONSIDER LEFT HEART CATH, ONCE INFECTIONS RESOLVED PER ID AND ONCE RENAL FUNCTION IMPROVES. WOULD HOLD DIURETICS FOR NOW AND MONITOR RENAL FUNCTION AND UO. 50 MIN TOTAL CARE TIME. MONITOR LABS AND EKG.
[2018-09-04] MEDS: Meropenem 500 MG in Sodium Chloride 0.9% 100 ML IVPB SCH ×3 (00:56→16:08)
[2018-09-04] MEDS: Propofol 10 mg/ml 1,000 MG/100 ML VIAL IV SCH ×2 (06:26→20:37)
[2018-09-04 06:35] LABS: MEAN CORPUSCULAR HEMOGLOBIN 29.3 pg (27.0-31.0); MEAN CORPUSCULAR HGB CONC 34.5 g/dL (33.0-37.0); RBC 3.39 Mil/uL (3.80-5.20); RED CELL DISTRIBUTION WIDTH 23.5 % (11.5-14.5)
[2018-09-04 07:00] LABS: CALCIUM 7.5 mg/dL (8.4-10.2)
[2018-09-04] MEDS: Insulin Detemir 100 Units/ml Inj SC SCH (08:11)
[2018-09-04] MEDS: Insulin Lispro (humaLOG) 100 Units/ml Inj SC SCH ×4 (08:12→21:19)
[2018-09-04] MEDS: Pantoprazole 40 mg Susp UD NG SCH (08:21)
[2018-09-04] MEDS: Enoxaparin 80 mg Syringe SC SCH (08:22)
[2018-09-04] MEDS: Fluconazole IV 100mg/50 ml NS 50 ML IVPB SCH (08:45)
[2018-09-04] MEDS: Linezolid 600 mg in D5W 300 ml 600 MG/300 ML BAG IVPB SCH ×2 (09:30→20:24)
--- NOTE | 2018-09-04 09:59 | RAD ---
Compared to 09/03/2018. Slight improvement in bilateral infiltrates. Tubes and catheters unchanged in position. Otherwise no significant change
--- NOTE | 2018-09-04 10:32 | CP.CCUPN ---
CCU Subjective - Physician Review Events Since Last Encounter (Free Text): 09/04/18 10:27 intubated, had good urine output from 80 mg IV lasix given in AM and pulm edema is significantly improved, on CXR film review and compared to yesterday's. D/D/W [employer] rep and possibility if ARDS was discussed in view of bilateral diffuse infiltrate and increased requirement of Fio2 to maintain her Ox saturation, but now with improved pulm infiltrate/edema, improved Oxygen saturation and also improved renal function with lasix, suggesting pulm edema and not ARDS. Her [facility]A is from [facility], due to cardiac arrest. CCU Objective - Vital Signs / Intake & Output Vital Signs (Last 4 hours): Vital Signs Temp Pulse Resp BP Pulse Ox 09/04/18 10:00 65 20 134/54 L 100 09/04/18 09:30 64 126/54 L 09/04/18 09:00 64 17 135/60 100 09/04/18 08:22 66 144/59 L 09/04/18 08:21 66 144/69 09/04/18 08:00 98.3 F 67 21 144/59 L 99 09/04/18 07:00 65 17 147/56 L 96 Intake and Output (Last 8hrs): Intake & Output 09/03/18 09/04/18 09/04/18 22:59 06:59 14:59 Intake Total 1365 960 600 Output Total 900 Balance 465 960 600 Weight 175 lb 4.8 oz Intake: IV 115 60 0 Intake, Piggyback 450 100 400 Oral 200 Tube Feeding 400 200 200 Free Water Flush 400 400 Output: Urine 900 Urethral (Hughes) 900 Other: # Bowel Movements 1 1 - Physical Exam Narrative Physical Exam (Free Text): 09/04/18 10:32 P/E Neck: No JVD Lungs: Bilateral basal crackles Abdomen: soft, BS +ve Ext: No no edmea heart: No gallop Head: Positive for: Atraumatic, Normocephalic Pupils: Positive for: PERRL. Negative for: Sluggish, Non-Reactive, Pinpoint Conjunctiva: Positive for: Normal. Negative for: Injected, Icteric Mouth: Positive for: Moist Mucous Membranes Nose (External): Positive for: Atraumatic Neck: Positive for: Normal Range of Motion Respiratory/Chest: Positive for: Rhonchi Cardiovascular: Positive for: Regular Rate and Rhythm Abdomen: Positive for: Normal Bowel Sounds. Negative for: Tenderness, Distention, Peritoneal Signs Upper Extremity: Positive for: Normal Inspection, NORMAL PULSES, Capillary Refill < 2s. Negative for: Cyanosis, Edema Lower Extremity: Positive for: Normal Inspection. Negative for: Edema, CALF TENDERNESS Neurological: Positive for: Other (on ventilator, opens eyes to verbal stimuli). Negative for: GCS=15, CN II-XII Intact, Speech Normal, Motor Func Grossly I ntact, Normal Sensory Function, Normal Cerebellar Funct, Norm Deep Tendon Reflexes, Gait Normal, Memory Normal, Normal 2Pt Descrimination Psychiatric: Negative for: Alert, Oriented x 3 - Medications Active Medications: Active Medications Generic Name Dose Route Start Last Admin Trade Name Freq PRN Reason Stop Dose Admin Acetaminophen 650 mg 08/24/18 10:29 08/25/18 01:06 Tylenol 650mg/20.3ml Solution Ud NG 650 mg Q6 PRN Administration Temperature Acetaminophen 650 mg 08/31/18 19:57 09/02/18 05:54 Tylenol 650mg/20.3ml Solution Ud PO 650 mg Q6 PRN Administration Pain, Mild (1-3) Albuterol/Ipratropium 3 ml 08/31/18 14:34 08/31/18 22:00 Duoneb 3 Mg/0.5 Mg (3 Ml) Ud INH 3 ml RQ6 PRN Administration Shortness of Breath Amlodipine Besylate 5 mg 08/22/18 21:00 09/04/18 08:22 Norvasc PO 5 mg Q12 [facility] Administration Aspirin 81 mg 08/21/18 09:00 09/04/18 08:24 Aspirin Chewable PO 81 mg DAILY [facility] Administration Enoxaparin Sodium 80 mg 09/02/18 09:00 09/04/18 08:22 Lovenox SC 80 mg DAILY [facility] Administration Protocol Hydralazine HCl 100 mg 08/31/18 11:00 09/04/18 08:21 Apresoline PO 100 mg Q8 [facility] Administration Meropenem 500 mg/ Sodium 100 mls @ 100 mls/hr 08/24/18 12:30 09/04/18 08:13 Chloride IVPB 100 mls/hr Q8 [facility] Administration Protocol Linezolid 600 mg in 300 mls @ 300 mls/hr 08/27/18 13:35 09/04/18 09:30 Zyvox 600mg/300ml D5w IVPB 300 mls/hr Q12 [facility] Administration Protocol Fluconazole 50 mls @ 50 mls/hr 09/03/18 18:00 09/04/18 08:45 Diflucan Iv 100 Mg/50 Ml Ns IVPB 09/09/18 12:00 50 mls/hr DAILY [facility] Administration Protocol Propofol 1,000 mg in 100 mls @ 2.379 mls/hr 09/04/18 06:30 09/04/18 09:49 Diprivan IV 09/05/18 06:20 12 mcg/kg/min .Q24H [facility] 5.709 mls/hr Titration Protocol 5 MCG/KG/MIN Insulin Detemir 12 units 08/26/18 14:00 09/04/18 08:11 Levemir SC 8 unit DAILY [facility] Administration Insulin Human Lispro 0 units 08/13/18 11:30 09/04/18 08:12 Humalog SC 3 u ACHS [facility] Administration Protocol Meclizine HCl 12.5 mg 08/13/18 09:00 08/18/18 09:27 Antivert PO 12.5 mg DAILY [facility] Administration Metformin HCl 1,000 mg 08/13/18 09:00 08/16/18 09:34 Glucophage PO Not Given BID [facility] Metoprolol Tartrate 50 mg 09/02/18 16:00 09/04/18 09:30 Lopressor PO 50 mg Q6 [facility] Administration Pantoprazole Sodium 40 mg 09/01/18 14:00 09/04/18 08:21 Protonix Susp NG 40 mg DAILY [facility] Administration Sucralfate 1 gm 08/14/18 20:30 08/18/18 22:07 Carafate Oral Susp PO 1 gm ACHS [facility] Administration - Patient Studies Lab Studies: Microbiology Studies 09/01/18 14:43 Gram Stain - Final Trachasp Sputum Culture - Final Yeast Species 09/02/18 11:00 Urine Culture - Final Urine,Hughes Yeast Species 09/02/18 10:15 Blood Culture - Preliminary Blood-Thru Central Line NO GROWTH AFTER 24 HOURS 09/02/18 10:30 Blood Culture - Preliminary Blood-Thru Central Line NO GROWTH AFTER 24 HOURS Lab Studies 12/09/18 12/09/18 12/09/18 Range/Units 08:07 06:08 05:30 WBC (4.8-10.8) K/uL RBC (3.80-5.20) Mil/uL Hgb (12.0-16.0) g/dL Hct (34.0-47.0) % MCV (81.0-99.0) fl MCH (27.0-31.0) pg MCHC (33.0-37.0) g/dL RDW (11.5-14.5) % Plt Count (130-400) K/uL Neutrophils % (Manual) (42-75) % Band Neutrophils % (0-2) % Lymphocytes % (Manual) (20-50) % Monocytes % (Manual) (0-10) % Nucleated RBC % (0-0) % Platelet Estimate (NORMAL) Giant Platelets Hypochromasia (manual) Anisocytosis (manual) Tear Drop Cells Ovalocytes Schistocytes Sodium 138 (132-148) mmol/l Potassium 3.7 (3.6-5.0) MMOL/L Chloride 105 (98-107) mmol/L Carbon Dioxide 23 (22-30) mmol/L Anion Gap 14 (10-20) BUN 61 H (7-17) mg/dl Creatinine 1.8 H (0.7-1.2) mg/dl Est GFR ( Amer) 33 Est GFR (Non-Af Amer) 27 POC Glucose (mg/dL) 266 H 230 H (65-110) mg/dL Random Glucose 266 H (65-105) mg/dL Calcium 7.5 L (8.4-10.2) mg/dL 18 18 09/03/18 Range/Units 05:30 22:10 16:26 WBC 11.0 H (4.8-10.8) K/uL RBC 3.39 L (3.80-5.20) Mil/uL Hgb 10.0 L (12.0-16.0) g/dL Hct 28.8 L (34.0-47.0) % MCV 85.0 (81.0-99.0) fl MCH 29.3 (27.0-31.0) pg MCHC 34.5 (33.0-37.0) g/dL RDW 23.5 H (11.5-14.5) % Plt Count 351 (130-400) K/uL Neutrophils % (Manual) (42-75) % Band Neutrophils % (0-2) % Lymphocytes % (Manual) (20-50) % Monocytes % (Manual) (0-10) % Nucleated RBC % (0-0) % Platelet Estimate (NORMAL) Giant Platelets Hypochromasia (manual) Anisocytosis (manual) Tear Drop Cells Ovalocytes Schistocytes Sodium (132-148) mmol/l Potassium (3.6-5.0) MMOL/L Chloride (98-107) mmol/L Carbon Dioxide (22-30) mmol/L Anion Gap (10-20) BUN (7-17) mg/dl Creatinine (0.7-1.2) mg/dl Est GFR ( Amer) Est GFR (Non-Af Amer) POC Glucose (mg/dL) 274 H 287 H (65-110) mg/dL Random Glucose (65-105) mg/dL Calcium (8.4-10.2) mg/dL 09/03/18 09/03/18 Range/Units 11:10 05:30 WBC (4.8-10.8) K/uL RBC (3.80-5.20) Mil/uL Hgb (12.0-16.0) g/dL Hct (34.0-47.0) % MCV (81.0-99.0) fl MCH (27.0-31.0) pg MCHC (33.0-37.0) g/dL RDW (11.5-14.5) % Plt Count (130-400) K/uL Neutrophils % (Manual) 84 H (42-75) % Band Neutrophils % 1 (0-2) % Lymphocytes % (Manual) 7 L (20-50) % Monocytes % (Manual) 8 (0-10) % Nucleated RBC % 1 H (0-0) % Platelet Estimate Increased H (NORMAL) Giant Platelets Present Hypochromasia (manual) Slight Anisocytosis (manual) Marked Tear Drop Cells Slight Ovalocytes Slight Schistocytes Slight Sodium (132-148) mmol/l Potassium (3.6-5.0) MMOL/L Chloride (98-107) mmol/L Carbon Dioxide (22-30) mmol/L Anion Gap (10-20) BUN (7-17) mg/dl Creatinine (0.7-1.2) mg/dl Est GFR ( Amer) Est GFR (Non-Af Amer) POC Glucose (mg/dL) 349 H (65-110) mg/dL Random Glucose (65-105) mg/dL Calcium (8.4-10.2) mg/dL Laboratory Results - last 24 hr 09/03/18 09/03/18 09/03/18 05:30 11:10 16:26 WBC RBC Hgb Hct MCV MCH MCHC RDW Plt Count Neutrophils % (Manual) 84 H Band Neutrophils % 1 Lymphocytes % (Manual) 7 L Monocytes % (Manual) 8 Nucleated RBC % 1 H Platelet Estimate Increased H Giant Platelets Present Hypochromasia (manual) Slight Anisocytosis (manual) Marked Tear Drop Cells Slight Ovalocytes Slight Schistocytes Slight Sodium Potassium Chloride Carbon Dioxide Anion Gap BUN Creatinine Est GFR ( Amer) Est GFR (Non-Af Amer) POC Glucose (mg/dL) 349 H 287 H Random Glucose Calcium 09/03/18 09/04/18 09/04/18 22:10 05:30 05:30 WBC 11.0 H RBC 3.39 L Hgb 10.0 L Hct 28.8 L MCV 85.0 MCH 29.3 MCHC 34.5 RDW 23.5 H Plt Count 351 Neutrophils % (Manual) Band Neutrophils % Lymphocytes % (Manual) Monocytes % (Manual) Nucleated RBC % Platelet Estimate Giant Platelets Hypochromasia (manual) Anisocytosis (manual) Tear Drop Cells Ovalocytes Schistocytes Sodium 138 Potassium 3.7 Chloride 105 Carbon Dioxide 23 Anion Gap 14 BUN 61 H Creatinine 1.8 H Est GFR ( Amer) 33 Est GFR (Non-Af Amer) 27 POC Glucose (mg/dL) 274 H Random Glucose 266 H Calcium 7.5 L 09/04/18 09/04/18 06:08 08:07 WBC RBC Hgb Hct MCV MCH MCHC RDW Plt Count Neutrophils % (Manual) Band Neutrophils % Lymphocytes % (Manual) Monocytes % (Manual) Nucleated RBC % Platelet Estimate Giant Platelets Hypochromasia (manual) Anisocytosis (manual) Tear Drop Cells Ovalocytes Schistocytes Sodium Potassium Chloride Carbon Dioxide Anion Gap BUN Creatinine Est GFR ( Amer) Est GFR (Non-Af Amer) POC Glucose (mg/dL) 230 H 266 H Random Glucose Calcium Fingerstick Blood Sugar Results: 266 Assessment/Plan - Assessment and Plan (Free Text) Assessment: IMPRESSION/MAJOR PROBLEMS: S/p Cardiac Arrest, Acute resp failure with pulm edema, : improving with diuretics Pneumonia, Aspiration Vs VAP Acute/Subacute NSTEMI VRE Bacteremia/Sepsis, Coag neg Staph, yeast in sputum and urine AURORA, : ATN from cardia arrest/sepsis: improving GI symptoms/GB / Biliary Tract disease Pulmonary edema/Congestion : improving DVT Anemia CVA DM-II HTN Hypokalemia : improved Hypernatremia: improved PLAN: - was givem 80 mg IV lsix with good urine output and improved pulm edema , [employer] rep, yesterday , wanted to hold lasix, will discuss. Hold for the time being.., - On lovenox for NSTEMI, and DVT, had mild hematuria, subsided, Lovenox was continued, it was due to hughes's trauma. lovenox , adjust to dose for low GFR, - - Staph coag neg Bacteremia/ VRE, C/w Lisa and Linezolid as per ID, - S/p VEEG, CT: no acute changes, MRI as per neuro to r/o causes for worsening weakness before intubation - H/H Stable, no significant drop in H7H, 11 to 10 - C/w Lovenox 80mg SC daily,which is a renal adjusted dose for DVT Rx - C/w Metoprolol 50 Q8H /Norvasc 5mg BID/Hydralazine 100 Q8H - C/w Insulin Leve 12 U SC daily and Lispro - C/w Protonix Vent: decrease Fio from 80 to 50% and continue AC 10/m, 400 PEEP 5, Hold Lasix
--- NOTE | 2018-09-04 12:28 | CP.PCM.CON ---
History of Present Illness - History of Present Illness History of Present Illness: remaains intubated afebrile Review of Systems - Review of Systems All systems: reviewed and no additional remarkable complaints except Past Patient History - Past Medical History & Family History Past Medical History?: Yes Past Family History: Reviewed and not pertinent - Past Social History Smoking Status: Never Smoked Alcohol: None Drugs: Denies Home Situation {Lives}: With Family - CARDIAC Hx Cardiac Disorders: Yes Hx Hypertension: Yes Hx Pacemaker: No - PULMONARY Hx Respiratory Disorders: No - NEUROLOGICAL Hx Neurological Disorder: Yes Hx Dizziness: Yes - HEENT Hx HEENT Problems: No - RENAL Hx Chronic Kidney Disease: No - ENDOCRINE/METABOLIC Hx Endocrine Disorders: Yes Hx Diabetes Mellitus Type 2: Yes - HEMATOLOGICAL/ONCOLOGICAL Hx Blood Disorders: No Hx Cancer: No - INTEGUMENTARY Hx Dermatological Problems: No - MUSCULOSKELETAL/RHEUMATOLOGICAL Hx Musculoskeletal Disorders: Yes Hx Falls: Yes - GASTROINTESTINAL Hx Gastrointestinal Disorders: Yes Hx Gastritis: Yes - GENITOURINARY/GYNECOLOGICAL Hx Genitourinary Disorders: No - PSYCHIATRIC Hx Psychophysiologic Disorder: No Hx Substance Use: No - SURGICAL HISTORY Hx Surgeries: No Hx Mastectomy: No - ANESTHESIA Hx Anesthesia: No Meds Allergies/Adverse Reactions: Allergies Allergy/AdvReac Type Severity Reaction Status Date / Time No Known Allergies Allergy Verified 09/20/17 08:57 - Medications Medications: Current Medications Acetaminophen (Tylenol 650mg/20.3ml Solution Ud) 650 mg NG Q6 PRN PRN Reason: Temperature Last Admin: 08/25/18 01:06 Dose: 650 mg Acetaminophen (Tylenol 650mg/20.3ml Solution Ud) 650 mg PO Q6 PRN PRN Reason: Pain, Mild (1-3) Last Admin: 09/02/18 05:54 Dose: 650 mg Albuterol/Ipratropium (Duoneb 3 Mg/0.5 Mg (3 Ml) Ud) 3 ml INH RQ6 PRN PRN Reason: Shortness of Breath Last Admin: 08/31/18 22:00 Dose: 3 ml Amlodipine Besylate (Norvasc) 5 mg PO Q12 [facility] Last Admin: 09/04/18 08:22 Dose: 5 mg Aspirin (Aspirin Chewable) 81 mg PO DAILY [facility] Last Admin: 09/04/18 08:24 Dose: 81 mg Enoxaparin Sodium (Lovenox) 80 mg SC DAILY [facility]; Protocol Last Admin: 09/04/18 08:22 Dose: 80 mg Hydralazine HCl (Apresoline) 100 mg PO Q8 [facility] Last Admin: 09/04/18 08:21 Dose: 100 mg Meropenem 500 mg/ Sodium (Chloride) 100 mls @ 100 mls/hr IVPB Q8 [facility]; Protocol Last Admin: 09/04/18 08:13 Dose: 100 mls/hr Linezolid (Zyvox 600mg/300ml D5w) 600 mg in 300 mls @ 300 mls/hr IVPB Q12 [facility]; Protocol Last Admin: 09/04/18 09:30 Dose: 300 mls/hr Fluconazole (Diflucan Iv 100 Mg/50 Ml Ns) 50 mls @ 50 mls/hr IVPB DAILY [facility]; Protocol Stop: 09/09/18 12:00 Last Admin: 09/04/18 08:45 Dose: 50 mls/hr Propofol (Diprivan) 1,000 mg in 100 mls @ 2.379 mls/hr IV .Q24H [facility]; Protocol Stop: 09/05/18 06:20 Last Titration: 09/04/18 12:27 Dose: 15 mcg/kg/min, 7.136 mls/hr Insulin Detemir (Levemir) 12 units SC DAILY [facility] Last Admin: 09/04/18 08:11 Dose: 8 unit Insulin Human Lispro (Humalog) 0 units SC ACHS [facility]; Protocol Last Admin: 09/04/18 11:21 Dose: 4 u Meclizine HCl (Antivert) 12.5 mg PO DAILY [facility] Last Admin: 08/18/18 09:27 Dose: 12.5 mg Metformin HCl (Glucophage) 1,000 mg PO BID [facility] Last Admin: 08/16/18 09:34 Dose: Not Given Metoprolol Tartrate (Lopressor) 50 mg PO Q6 [facility] Last Admin: 09/04/18 09:30 Dose: 50 mg Pantoprazole Sodium (Protonix Susp) 40 mg NG DAILY [facility] Last Admin: 09/04/18 08:21 Dose: 40 mg Sucralfate (Carafate Oral Susp) 1 gm PO ACHS [facility] Last Admin: 08/18/18 22:07 Dose: 1 gm Physical Exam - Constitutional Appears: Chronically Ill - Head Exam Head Exam: ATRAUMATIC - Eye Exam Eye Exam: absent: Scleral icterus - ENT Exam ENT Exam: Mucous Membranes Dry - Neck Exam Neck exam: Negative for: Lymphadenopathy - Respiratory Exam Respiratory Exam: Decreased Breath Sounds - Cardiovascular Exam Cardiovascular Exam: REGULAR RHYTHM - GI/Abdominal Exam GI & Abdominal Exam: Diminished Bowel Sounds - Rectal Exam Rectal Exam: Deferred - Exam Exam: NORMAL INSPECTION Results - Vital Signs Recent Vital Signs: Last Vital Signs Temp 98.3 F 09/04/18 08:00 Pulse 61 09/04/18 11:00 Resp 21 09/04/18 11:00 BP 123/52 L 09/04/18 11:00 Pulse Ox 100 09/04/18 11:00 - Labs Result Diagrams: 09/04/18 05:30 09/04/18 05:30 Labs: Laboratory Results - last 24 hr 09/03/18 09/03/18 09/04/18 16:26 22:10 05:30 WBC 11.0 H RBC 3.39 L Hgb 10.0 L Hct 28.8 L MCV 85.0 MCH 29.3 MCHC 34.5 RDW 23.5 H Plt Count 351 Sodium Potassium Chloride Carbon Dioxide Anion Gap BUN Creatinine Est GFR ( Amer) Est GFR (Non-Af Amer) POC Glucose (mg/dL) 287 H 274 H Random Glucose Calcium 09/04/18 09/04/18 09/04/18 05:30 06:08 08:07 WBC RBC Hgb Hct MCV MCH MCHC RDW Plt Count Sodium 138 Potassium 3.7 Chloride 105 Carbon Dioxide 23 Anion Gap 14 BUN 61 H Creatinine 1.8 H Est GFR ( Amer) 33 Est GFR (Non-Af Amer) 27 POC Glucose (mg/dL) 230 H 266 H Random Glucose 266 H Calcium 7.5 L 09/04/18 11:17 WBC RBC Hgb Hct MCV MCH MCHC RDW Plt Count Sodium Potassium Chloride Carbon Dioxide Anion Gap BUN Creatinine Est GFR ( Amer) Est GFR (Non-Af Amer) POC Glucose (mg/dL) 307 H Random Glucose Calcium Assessment & Plan (1) Dehydration Status: Acute (2) NSTEMI (non-ST elevated myocardial infarction) Status: Acute (3) Nausea & vomiting Status: Resolved (4) Type 2 diabetes mellitus with hyperglycemia Status: Chronic Priority: Medium (5) Abdominal pain Status: Acute (6) Gallbladder disease Status: Acute (7) Pneumonia Status: Acute - Assessment and Plan (Free Text) Assessment: resp failure s/p NSTEMI CHF s/p cardiac arrest resolving AURORA resolving sepsis secondary to VRE cholecystitis pneumonia
--- NOTE | 2018-09-04 15:17 | CP.PCM.PN ---
Subjective - Date & Time of Evaluation Date of Evaluation: 09/04/18 Time of Evaluation: 13:15 - Subjective Subjective: F/U Respiratory Failure. PNA Intubated, response to verbal and tactile stimuli. Objective - Vital Signs/Intake and Output Vital Signs (last 24 hours): Temp Pulse Resp BP Pulse Ox 98.6 F 70 16 151/51 H 96 09/04/18 12:00 09/04/18 15:00 09/04/18 15:00 09/04/18 15:00 09/04/18 15:00 Intake and Output: 09/04/18 09/04/18 06:59 18:59 Intake Total 1675 1000 Balance 1675 1000 - Medications Medications: Current Medications Acetaminophen (Tylenol 650mg/20.3ml Solution Ud) 650 mg NG Q6 PRN PRN Reason: Temperature Last Admin: 08/25/18 01:06 Dose: 650 mg Acetaminophen (Tylenol 650mg/20.3ml Solution Ud) 650 mg PO Q6 PRN PRN Reason: Pain, Mild (1-3) Last Admin: 09/02/18 05:54 Dose: 650 mg Albuterol/Ipratropium (Duoneb 3 Mg/0.5 Mg (3 Ml) Ud) 3 ml INH RQ6 PRN PRN Reason: Shortness of Breath Last Admin: 08/31/18 22:00 Dose: 3 ml Amlodipine Besylate (Norvasc) 5 mg PO Q12 [facility] Last Admin: 09/04/18 08:22 Dose: 5 mg Aspirin (Aspirin Chewable) 81 mg PO DAILY [facility] Last Admin: 09/04/18 08:24 Dose: 81 mg Enoxaparin Sodium (Lovenox) 80 mg SC DAILY [facility]; Protocol Last Admin: 09/04/18 08:22 Dose: 80 mg Hydralazine HCl (Apresoline) 100 mg PO Q8 [facility] Last Admin: 09/04/18 08:21 Dose: 100 mg Meropenem 500 mg/ Sodium (Chloride) 100 mls @ 100 mls/hr IVPB Q8 [facility]; Protocol Last Admin: 09/04/18 08:13 Dose: 100 mls/hr Linezolid (Zyvox 600mg/300ml D5w) 600 mg in 300 mls @ 300 mls/hr IVPB Q12 [facility]; Protocol Last Admin: 09/04/18 09:30 Dose: 300 mls/hr Fluconazole (Diflucan Iv 100 Mg/50 Ml Ns) 50 mls @ 50 mls/hr IVPB DAILY [facility]; Protocol Stop: 09/09/18 12:00 Last Admin: 09/04/18 08:45 Dose: 50 mls/hr Propofol (Diprivan) 1,000 mg in 100 mls @ 2.379 mls/hr IV .Q24H [facility]; Protocol Stop: 09/05/18 06:20 Last Titration: 09/04/18 12:27 Dose: 15 mcg/kg/min, 7.136 mls/hr Insulin Detemir (Levemir) 12 units SC DAILY [facility] Last Admin: 09/04/18 08:11 Dose: 8 unit Insulin Human Lispro (Humalog) 0 units SC [facility]; Protocol Last Admin: 09/04/18 11:21 Dose: 4 u Meclizine HCl (Antivert) 12.5 mg PO DAILY [facility] Last Admin: 08/18/18 09:27 Dose: 12.5 mg Metformin HCl (Glucophage) 1,000 mg PO BID [facility] Last Admin: 08/16/18 09:34 Dose: Not Given Metoprolol Tartrate (Lopressor) 50 mg PO Q6 [facility] Last Admin: 09/04/18 09:30 Dose: 50 mg Pantoprazole Sodium (Protonix Susp) 40 mg NG DAILY [facility] Last Admin: 09/04/18 08:21 Dose: 40 mg Sucralfate (Carafate Oral Susp) 1 gm PO [facility] Last Admin: 08/18/18 22:07 Dose: 1 gm - Labs Labs: 09/04/18 05:30 09/04/18 05:30 PT 13.3 Seconds (9.8-13.1) H 08/25/18 05:00 INR 1.2 08/25/18 05:00 APTT 29.9 Seconds (25.6-37.1) 08/25/18 05:00 - Constitutional Appears: No Acute Distress - Head Exam Head Exam: NORMAL INSPECTION - Eye Exam Eye Exam: PERRL - ENT Exam Additional comments: Intubated, OGT - Neck Exam Neck Exam: Normal Inspection - Respiratory Exam Respiratory Exam: Decreased Breath Sounds (b/l), Rhonchi (scattered) - Cardiovascular Exam Cardiovascular Exam: REGULAR RHYTHM, Murmur (systolic) - GI/Abdominal Exam GI & Abdominal Exam: Soft, Normal Bowel Sounds - Exam Additional comments: Jin Cath - Extremities Exam Additional comments: Edema U/E, L/E - Neurological Exam Additional comments: Intubated, sedated with Propofol. - Skin Skin Exam: Warm Assessment and Plan (1) Acute respiratory failure Status: Acute (2) Cardiac arrest Status: Acute (3) Aspiration pneumonia Status: Acute (4) Pleural effusion Status: Acute (5) Atelectasis of both lungs Status: Acute (6) NSTEMI (non-ST elevated myocardial infarction) Status: Acute (7) CHF (congestive heart failure) Status: Acute (8) DVT (deep venous thrombosis) Status: Acute (9) Severe anemia Status: Acute - Assessment and Plan (Free Text) Plan: CXR today: Improvement in b/l infiltrates. Continue ventilatory support, Zyvox, Merren, Duoneb and rest of Tx. Critical care time: 32 min.
[2018-09-05] MEDS: Meropenem 500 MG in Sodium Chloride 0.9% 100 ML IVPB SCH ×3 (00:06→16:48)
--- NOTE | 2018-09-05 03:09 | CP.PCM.PN ---
Subjective - Date & Time of Evaluation Date of Evaluation: 09/03/18 Objective - Vital Signs/Intake and Output Vital Signs (last 24 hours): Temp Pulse Resp BP Pulse Ox 71 F L 78 21 152/78 H 95 09/04/18 19:00 09/05/18 01:24 09/04/18 23:00 09/05/18 01:24 09/04/18 23:00 Intake and Output: 09/04/18 09/05/18 18:59 06:59 Intake Total 1500 900 Output Total 400 Balance 1100 900 - Medications Medications: Current Medications Acetaminophen (Tylenol 650mg/20.3ml Solution Ud) 650 mg NG Q6 PRN PRN Reason: Temperature Last Admin: 08/25/18 01:06 Dose: 650 mg Acetaminophen (Tylenol 650mg/20.3ml Solution Ud) 650 mg PO Q6 PRN PRN Reason: Pain, Mild (1-3) Last Admin: 09/02/18 05:54 Dose: 650 mg Albuterol/Ipratropium (Duoneb 3 Mg/0.5 Mg (3 Ml) Ud) 3 ml INH RQ6 PRN PRN Reason: Shortness of Breath Last Admin: 08/31/18 22:00 Dose: 3 ml Amlodipine Besylate (Norvasc) 5 mg PO Q12 [facility] Last Admin: 09/04/18 20:54 Dose: 5 mg Aspirin (Aspirin Chewable) 81 mg PO DAILY [facility] Last Admin: 09/04/18 08:24 Dose: 81 mg Enoxaparin Sodium (Lovenox) 80 mg SC DAILY [facility]; Protocol Last Admin: 09/04/18 08:22 Dose: 80 mg Hydralazine HCl (Apresoline) 100 mg PO Q8 [facility] Last Admin: 09/05/18 01:24 Dose: 100 mg Meropenem 500 mg/ Sodium (Chloride) 100 mls @ 100 mls/hr IVPB Q8 [facility]; Protocol Last Admin: 09/05/18 00:06 Dose: 100 mls/hr Linezolid (Zyvox 600mg/300ml D5w) 600 mg in 300 mls @ 300 mls/hr IVPB Q12 [facility]; Protocol Last Admin: 09/04/18 20:24 Dose: 300 mls/hr Fluconazole (Diflucan Iv 100 Mg/50 Ml Ns) 50 mls @ 50 mls/hr IVPB DAILY [facility]; Protocol Stop: 09/09/18 12:00 Last Admin: 09/04/18 08:45 Dose: 50 mls/hr Propofol (Diprivan) 1,000 mg in 100 mls @ 2.379 mls/hr IV .Q24H [facility]; Protocol Stop: 09/05/18 06:20 Last Admin: 09/04/18 20:37 Dose: 15 mcg/kg/min, 7.136 mls/hr Insulin Detemir (Levemir) 12 units SC DAILY [facility] Last Admin: 09/04/18 08:11 Dose: 8 unit Insulin Human Lispro (Humalog) 0 units SC ACHS [facility]; Protocol Last Admin: 09/04/18 21:19 Dose: Not Given Meclizine HCl (Antivert) 12.5 mg PO DAILY [facility] Last Admin: 08/18/18 09:27 Dose: 12.5 mg Metformin HCl (Glucophage) 1,000 mg PO BID [facility] Last Admin: 08/16/18 09:34 Dose: Not Given Metoprolol Tartrate (Lopressor) 50 mg PO Q6 [facility] Last Admin: 09/04/18 21:01 Dose: 50 mg Pantoprazole Sodium (Protonix Susp) 40 mg NG DAILY [facility] Last Admin: 09/04/18 08:21 Dose: 40 mg Sucralfate (Carafate Oral Susp) 1 gm PO [facility] Last Admin: 08/18/18 22:07 Dose: 1 gm - Labs Labs: 09/04/18 05:30 09/04/18 05:30 PT 13.3 Seconds (9.8-13.1) H 08/25/18 05:00 INR 1.2 08/25/18 05:00 APTT 29.9 Seconds (25.6-37.1) 08/25/18 05:00 Assessment and Plan (1) Acute gastroenteritis Status: Resolved (2) Hypertensive urgency Status: Resolved (3) Abdominal pain in female Status: Resolved (4) Type 2 diabetes mellitus with hyperglycemia Status: Chronic (5) NSTEMI (non-ST elevated myocardial infarction) Status: Acute (6) Gallbladder disease Status: Acute (7) AURORA (acute kidney injury) Status: Acute (8) Cardiac arrest Status: Acute (9) Acute respiratory failure Status: Acute (10) DVT (deep venous thrombosis) Status: Acute (11) Severe anemia Status: Acute (12) Aspiration pneumonia Status: Acute
--- NOTE | 2018-09-05 03:10 | CP.PCM.PN ---
Subjective - Date & Time of Evaluation Date of Evaluation: 09/04/18 Time of Evaluation: 23:10 Objective - Vital Signs/Intake and Output Vital Signs (last 24 hours): Temp Pulse Resp BP Pulse Ox 71 F L 78 21 152/78 H 95 09/04/18 19:00 09/05/18 01:24 09/04/18 23:00 09/05/18 01:24 09/04/18 23:00 Intake and Output: 09/04/18 09/05/18 18:59 06:59 Intake Total 1500 900 Output Total 400 Balance 1100 900 - Medications Medications: Current Medications Acetaminophen (Tylenol 650mg/20.3ml Solution Ud) 650 mg NG Q6 PRN PRN Reason: Temperature Last Admin: 08/25/18 01:06 Dose: 650 mg Acetaminophen (Tylenol 650mg/20.3ml Solution Ud) 650 mg PO Q6 PRN PRN Reason: Pain, Mild (1-3) Last Admin: 09/02/18 05:54 Dose: 650 mg Albuterol/Ipratropium (Duoneb 3 Mg/0.5 Mg (3 Ml) Ud) 3 ml INH RQ6 PRN PRN Reason: Shortness of Breath Last Admin: 08/31/18 22:00 Dose: 3 ml Amlodipine Besylate (Norvasc) 5 mg PO Q12 [facility] Last Admin: 09/04/18 20:54 Dose: 5 mg Aspirin (Aspirin Chewable) 81 mg PO DAILY [facility] Last Admin: 09/04/18 08:24 Dose: 81 mg Enoxaparin Sodium (Lovenox) 80 mg SC DAILY [facility]; Protocol Last Admin: 09/04/18 08:22 Dose: 80 mg Hydralazine HCl (Apresoline) 100 mg PO Q8 [facility] Last Admin: 09/05/18 01:24 Dose: 100 mg Meropenem 500 mg/ Sodium (Chloride) 100 mls @ 100 mls/hr IVPB Q8 [facility]; Protocol Last Admin: 09/05/18 00:06 Dose: 100 mls/hr Linezolid (Zyvox 600mg/300ml D5w) 600 mg in 300 mls @ 300 mls/hr IVPB Q12 [facility]; Protocol Last Admin: 09/04/18 20:24 Dose: 300 mls/hr Fluconazole (Diflucan Iv 100 Mg/50 Ml Ns) 50 mls @ 50 mls/hr IVPB DAILY [facility]; Protocol Stop: 09/09/18 12:00 Last Admin: 09/04/18 08:45 Dose: 50 mls/hr Propofol (Diprivan) 1,000 mg in 100 mls @ 2.379 mls/hr IV .Q24H [facility]; Protocol Stop: 09/05/18 06:20 Last Admin: 09/04/18 20:37 Dose: 15 mcg/kg/min, 7.136 mls/hr Insulin Detemir (Levemir) 12 units SC DAILY [facility] Last Admin: 09/04/18 08:11 Dose: 8 unit Insulin Human Lispro (Humalog) [address] [facility]; Protocol Last Admin: 09/04/18 21:19 Dose: Not Given Meclizine HCl (Antivert) 12.5 mg PO DAILY [facility] Last Admin: 08/18/18 09:27 Dose: 12.5 mg Metformin HCl (Glucophage) 1,000 mg PO BID [facility] Last Admin: 08/16/18 09:34 Dose: Not Given Metoprolol Tartrate (Lopressor) 50 mg PO Q6 [facility] Last Admin: 09/04/18 21:01 Dose: 50 mg Pantoprazole Sodium (Protonix Susp) 40 mg NG DAILY [facility] Last Admin: 09/04/18 08:21 Dose: 40 mg Sucralfate (Carafate Oral Susp) [address] [facility] Last Admin: 08/18/18 22:07 Dose: 1 gm - Labs Labs: 09/04/18 05:30 09/04/18 05:30 PT 13.3 Seconds (9.8-13.1) H 08/25/18 05:00 INR 1.2 08/25/18 05:00 APTT 29.9 Seconds (25.6-37.1) 08/25/18 05:00 Assessment and Plan (1) Acute gastroenteritis Status: Resolved (2) Hypertensive urgency Status: Resolved (3) Abdominal pain in female Status: Resolved (4) Type 2 diabetes mellitus with hyperglycemia Status: Chronic (5) NSTEMI (non-ST elevated myocardial infarction) Status: Acute (6) Gallbladder disease Status: Acute (7) AURORA (acute kidney injury) Status: Acute (8) Cardiac arrest Status: Acute (9) Acute respiratory failure Status: Acute (10) DVT (deep venous thrombosis) Status: Acute (11) Severe anemia Status: Acute (12) Aspiration pneumonia Status: Acute
[2018-09-05 04:17] LABS: ABG ALLEN TEST YES; ARTERIAL BLOOD GAS HCO3 25.5 mmol/L (21-28); ARTERIAL BLOOD GAS HEMOGLOBIN 10.6 g/dL (11.7-17.4); ARTERIAL BLOOD GAS O2 CAPACITY 14.7 mL/dL (16-24); ARTERIAL BLOOD GAS O2 CONTENT 14.6 ML/dL (15-23); ARTERIAL BLOOD GAS O2 SAT 99.5 % (95-98); ARTERIAL BLOOD GAS PCO2 33 mm/Hg (35-45); ARTERIAL BLOOD GAS PH 7.47 (7.35-7.45); ARTERIAL BLOOD GAS PO2 106 mm/Hg (80-100)
[2018-09-05 05:54] LABS: HEMOGLOBIN 10.2 g/dL (12.0-16.0); MEAN CELL VOLUME 84.8 fl (81.0-99.0); MEAN CORPUSCULAR HEMOGLOBIN 28.5 pg (27.0-31.0); MEAN CORPUSCULAR HGB CONC 33.6 g/dL (33.0-37.0); RBC 3.58 Mil/uL (3.80-5.20); WHITE BLOOD COUNT 11.6 K/uL (4.8-10.8)
[2018-09-05 06:16] LABS: ALB/GLOB RATIO 0.8 (1.0-2.1); ALBUMIN 2.6 g/dL (3.5-5.0); CALCIUM 7.7 mg/dL (8.4-10.2)
[2018-09-05] MEDS: Insulin Lispro (humaLOG) 100 Units/ml Inj SC SCH ×4 (06:51→21:21)
[2018-09-05] MEDS: Pantoprazole 40 mg Susp UD NG SCH (08:42)
[2018-09-05] MEDS: Insulin Detemir 100 Units/ml Inj SC SCH (08:42)
[2018-09-05] MEDS: Fluconazole IV 100mg/50 ml NS 50 ML IVPB SCH (08:43)
[2018-09-05] MEDS: Linezolid 600 mg in D5W 300 ml 600 MG/300 ML BAG IVPB SCH ×2 (08:44→20:28)
[2018-09-05] MEDS: Enoxaparin 80 mg Syringe SC SCH ×2 (08:44→20:18)
--- NOTE | 2018-09-05 10:05 | CP.PCM.PN ---
Subjective - Date & Time of Evaluation Date of Evaluation: 09/05/18 Time of Evaluation: 10:04 - Subjective Subjective: remain on respirator Vital sign noted Objective - Vital Signs/Intake and Output Vital Signs (last 24 hours): Temp Pulse Resp BP Pulse Ox 99.6 F 80 18 170/79 H 100 09/05/18 08:00 09/05/18 08:41 09/05/18 08:00 09/05/18 08:41 09/05/18 08:00 Intake and Output: 09/05/18 09/05/18 06:59 18:59 Intake Total 1400 Output Total 1100 Balance 300 - Medications Medications: Current Medications Acetaminophen (Tylenol 650mg/20.3ml Solution Ud) 650 mg NG Q6 PRN PRN Reason: Temperature Last Admin: 08/25/18 01:06 Dose: 650 mg Acetaminophen (Tylenol 650mg/20.3ml Solution Ud) 650 mg PO Q6 PRN PRN Reason: Pain, Mild (1-3) Last Admin: 09/02/18 05:54 Dose: 650 mg Albuterol/Ipratropium (Duoneb 3 Mg/0.5 Mg (3 Ml) Ud) 3 ml INH RQ6 PRN PRN Reason: Shortness of Breath Last Admin: 08/31/18 22:00 Dose: 3 ml Amlodipine Besylate (Norvasc) 5 mg PO Q12 [facility] Last Admin: 09/05/18 08:41 Dose: 5 mg Hydralazine HCl (Apresoline) 100 mg PO Q8 [facility] Last Admin: 09/05/18 08:41 Dose: 100 mg Meropenem 500 mg/ Sodium (Chloride) 100 mls @ 100 mls/hr IVPB Q8 [facility]; Protocol Last Admin: 09/05/18 08:43 Dose: 100 mls/hr Linezolid (Zyvox 600mg/300ml D5w) 600 mg in 300 mls @ 300 mls/hr IVPB Q12 [facility]; Protocol Last Admin: 09/05/18 08:44 Dose: 300 mls/hr Fluconazole (Diflucan Iv 100 Mg/50 Ml Ns) 50 mls @ 50 mls/hr IVPB DAILY [facility]; Protocol Stop: 09/09/18 12:00 Last Admin: 09/05/18 08:43 Dose: 50 mls/hr Insulin Detemir (Levemir) 12 units SC DAILY [facility] Last Admin: 09/05/18 08:42 Dose: 12 unit Insulin Human Lispro (Humalog) 0 units SC [facility]; Protocol Last Admin: 09/05/18 06:51 Dose: 3 u Meclizine HCl (Antivert) 12.5 mg PO DAILY [facility] Last Admin: 08/18/18 09:27 Dose: 12.5 mg Metformin HCl (Glucophage) 1,000 mg PO BID [facility] Last Admin: 08/16/18 09:34 Dose: Not Given Metoprolol Tartrate (Lopressor) 50 mg PO Q6 [facility] Last Admin: 09/05/18 04:10 Dose: 50 mg Pantoprazole Sodium (Protonix Susp) 40 mg NG DAILY [facility] Last Admin: 09/05/18 08:42 Dose: 40 mg Sucralfate (Carafate Oral Susp) 1 gm PO [facility] Last Admin: 08/18/18 22:07 Dose: 1 gm - Labs Labs: 09/05/18 05:00 09/05/18 05:00 PT 13.3 Seconds (9.8-13.1) H 08/25/18 05:00 INR 1.2 08/25/18 05:00 APTT 29.9 Seconds (25.6-37.1) 08/25/18 05:00 - Constitutional Appears: No Acute Distress - Eye Exam Eye Exam: Conjunctival injection - ENT Exam ENT Exam: Mucous Membranes Moist - Neck Exam Neck Exam: absent: Lymphadenopathy - Respiratory Exam Respiratory Exam: Rhonchi. absent: Chest Wall Tenderness - GI/Abdominal Exam GI & Abdominal Exam: Soft, Normal Bowel Sounds - Extremities Exam Extremities Exam: absent: Calf Tenderness - Back Exam Back Exam: absent: CVA tenderness (L), CVA tenderness (R) - Neurological Exam Neurological Exam: Altered - Skin Skin Exam: absent: Cyanosis Assessment and Plan (1) AURORA (acute kidney injury) Assessment & Plan: Imaging: -CT Head (08/27/18): Normal CT of the Head. -CT Head (08/23/18): Interval acute subacute infarct left ICD 9 CODER distribution. No definite hemorrhage. Local mass effect identified without global mass effect appreciable. Follow-up CT or MRI advised. -CT Head (08/13/18): Age-appropriate age related neuro degenerative findings without acute intracranial changes at this time. -ECHO w/ Bubble: EF 60-65%; No ASD or PFO noted. -CXR 08/30: Vague R basilar opacity, Possible new RUL opacity and L pleural effusion, Line and tubes unchanged -CXR 08/31: Prelim: more congested impression acute kidney injury related to multifactorial including sepsis improving Respiratory failure patient remain on respirator VRE Sepsis AL hypernatremia,worsening. serum sodium improving to an corrected fever leukocytosis hypokalemia corrected 3.8 plan respiratory management Avoid hypotension Antibiotics as per renal doses adjustment Status: Acute (2) Acute gastroenteritis Status: Resolved (3) Anginal equivalent Status: Acute
--- NOTE | 2018-09-05 10:07 | RAD ---
Date of service: 09/05/2018 HISTORY: vented COMPARISON: 09/04/2018 FINDINGS: Endotracheal tube terminates in the mid trachea. The nasogastric tube terminates in the stomach. The left PICC line terminates in the SVC. LUNGS: There are low lung volumes. There is redemonstration of confluent airspace disease in the perihilar regions and lower lobes. PLEURA: Redemonstration of bilateral pleural effusions. No pneumothorax. CARDIOVASCULAR: The heart is normal in size. Atherosclerotic aortic arch calcifications are present. OSSEOUS STRUCTURES: Within normal limits for the patient's age. VISUALIZED UPPER ABDOMEN: Normal. OTHER FINDINGS: None. IMPRESSION: Findings are most compatible with bilateral pulmonary edema and pleural effusions. Follow-up is advised.
[2018-09-05] MEDS ORDERED: Propofol 10 mg/ml 1,000 MG/100 ML VIAL IV SCH (10:45)
[2018-09-05 12:18] LABS: ABG ALLEN TEST YES; ARTERIAL BLOOD GAS HCO3 25.3 mmol/L (21-28); ARTERIAL BLOOD GAS HEMOGLOBIN 10.3 g/dL (11.7-17.4); ARTERIAL BLOOD GAS O2 CAPACITY 14.4 mL/dL (16-24); ARTERIAL BLOOD GAS O2 CONTENT 14.4 ML/dL (15-23); ARTERIAL BLOOD GAS O2 SAT 99.7 % (95-98); ARTERIAL BLOOD GAS PCO2 36 mm/Hg (35-45); ARTERIAL BLOOD GAS PH 7.44 (7.35-7.45); ARTERIAL BLOOD GAS PO2 157 mm/Hg (80-100); ARTERIAL BLOOD GAS TCO2 25.6 mmol/L (22-28)
--- NOTE | 2018-09-05 12:21 | CP.PCM.PN ---
Subjective - Date & Time of Evaluation Date of Evaluation: 09/05/18 Time of Evaluation: 12:20 - Subjective Subjective: Neurology Consultation Follow-Up Note: Mrs. Whitney was evaluated this morning in the ICU. She remains intubated, on sedation. She was able to follow some commands when I saw her, eyes open. ROS limited as pt is intubated, but she does shake head for "no" and nod head for "yes." When asked if she had any h/a, dizziness, visual changes, chest pain, sob, abd pain, n/v/d, pt shook head "no." Reviewed chart, no overnight events. Objective - Vital Signs/Intake and Output Vital Signs (last 24 hours): Temp Pulse Resp BP Pulse Ox 99.1 F 79 20 181/76 H 100 09/05/18 12:00 09/05/18 12:00 09/05/18 12:00 09/05/18 12:00 09/05/18 12:00 Intake and Output: 09/05/18 09/05/18 06:59 18:59 Intake Total 1400 650 Output Total 1100 Balance 300 650 - Medications Medications: Current Medications Acetaminophen (Tylenol 650mg/20.3ml Solution Ud) 650 mg NG Q6 PRN PRN Reason: Temperature Last Admin: 08/25/18 01:06 Dose: 650 mg Acetaminophen (Tylenol 650mg/20.3ml Solution Ud) 650 mg PO Q6 PRN PRN Reason: Pain, Mild (1-3) Last Admin: 09/02/18 05:54 Dose: 650 mg Albuterol/Ipratropium (Duoneb 3 Mg/0.5 Mg (3 Ml) Ud) 3 ml INH RQ6 PRN PRN Reason: Shortness of Breath Last Admin: 08/31/18 22:00 Dose: 3 ml Amlodipine Besylate (Norvasc) 5 mg PO Q12 [facility] Last Admin: 09/05/18 08:41 Dose: 5 mg Hydralazine HCl (Apresoline) 100 mg PO Q8 [facility] Last Admin: 09/05/18 08:41 Dose: 100 mg Meropenem 500 mg/ Sodium (Chloride) 100 mls @ 100 mls/hr IVPB Q8 [facility]; Protocol Last Admin: 09/05/18 08:43 Dose: 100 mls/hr Linezolid (Zyvox 600mg/300ml D5w) 600 mg in 300 mls @ 300 mls/hr IVPB Q12 [facility]; Protocol Last Admin: 09/05/18 08:44 Dose: 300 mls/hr Fluconazole (Diflucan Iv 100 Mg/50 Ml Ns) 50 mls @ 50 mls/hr IVPB DAILY [facility]; Protocol Stop: 09/09/18 12:00 Last Admin: 09/05/18 08:43 Dose: 50 mls/hr Propofol (Diprivan) 1,000 mg in 100 mls @ 3.654 mls/hr IV .Q24H [facility]; Protocol Stop: 09/06/18 10:44 Last Admin: 09/05/18 11:03 Dose: 7.5 mcg/kg/min, 3.654 mls/hr Insulin Detemir (Levemir) 12 units SC DAILY [facility] Last Admin: 09/05/18 08:42 Dose: 12 unit Insulin Human Lispro (Humalog) 0 units SC [facility]; Protocol Last Admin: 09/05/18 12:03 Dose: 4 u Meclizine HCl (Antivert) 12.5 mg PO DAILY [facility] Last Admin: 08/18/18 09:27 Dose: 12.5 mg Metformin HCl (Glucophage) 1,000 mg PO BID [facility] Last Admin: 08/16/18 09:34 Dose: Not Given Metoprolol Tartrate (Lopressor) 50 mg PO Q6 [facility] Last Admin: 09/05/18 11:04 Dose: 50 mg Pantoprazole Sodium (Protonix Susp) 40 mg NG DAILY [facility] Last Admin: 09/05/18 08:42 Dose: 40 mg Sucralfate (Carafate Oral Susp) 1 gm PO ACHS [facility] Last Admin: 08/18/18 22:07 Dose: 1 gm - Labs Labs: 09/05/18 05:00 09/05/18 05:00 PT 13.3 Seconds (9.8-13.1) H 08/25/18 05:00 INR 1.2 08/25/18 05:00 APTT 29.9 Seconds (25.6-37.1) 08/25/18 05:00 - Constitutional Appears: Non-toxic, No Acute Distress - Head Exam Head Exam: ATRAUMATIC, NORMAL INSPECTION, NORMOCEPHALIC - Eye Exam Eye Exam: EOMI, Normal appearance Pupil Exam: NORMAL ACCOMODATION, PERRL - ENT Exam ENT Exam: Mucous Membranes Moist (intubated) - Neck Exam Neck Exam: Normal Inspection - Respiratory Exam Respiratory Exam: absent: Accessory Muscle Use, NORMAL BREATHING PATTERN (intubated; breathing over vent, no tachypnea ) - Cardiovascular Exam Cardiovascular Exam: REGULAR RHYTHM - Extremities Exam Extremities Exam: absent: Full ROM - Neurological Exam Neurological Exam: Alert, Awake, Reflexes Normal Neuro motor strength exam: Left Upper Extremity: 0 (senior quality manager 0/5), Right Upper Extremity: 2/1 (senior quality manager 3/5), Left Lower Extremity: 0 (dorsiflexion 0/5), Right Lower Extremity: 2/1 (dorsiflexion 2/5) Additional comments: unable to assess speech as pt is intubated able to follow some commands; nods and shakes head in response to questions. strength to lle and lue 0/5 unable to test sensory or fine motor 2/2 pt intubated - Psychiatric Exam Additional comments: unable to assess 2/2 intubated - Skin Skin Exam: Normal Color Assessment and Plan (1) CVA (cerebral vascular accident) Assessment & Plan: Imaging: -CT Head (09/01/18): No evidence of acute infarct. Old white matter lacune of the right centrum semiovale. Minimal atrophy and chronic white matter ischemic change. -CT Head (08/27/18): Normal CT of the Head. -CT Head (08/23/18): Interval acute subacute infarct left [employer] CHEMIST distribution. No definite hemorrhage. Local mass effect identified without global mass effect appreciable. Follow-up CT or MRI advised. -CT Head (08/13/18): Age-appropriate age related neuro degenerative findings without acute intracranial changes at this time. -ECHO w/ Bubble: EF 60-65%; No ASD or PFO noted. -Mrs. Whitney remains intubated; on sedation; able to follow some commands during exam and eyes open. -Continue BP control. -Continue ASA and Lovenox per cardio--I reordered both today. -Pt will need rehab once she is extubated and improves. At this time we will sign off. Please reconsult prn and notify us of any acute changes in patient's condition. Case discussed with Dr. Garibay Status: Acute
[2018-09-05] MEDS ORDERED: Chlorhexidine Gluconate 1 APPL/PKT TP ONE (12:32)
--- NOTE | 2018-09-05 15:09 | CP.PCM.PN ---
Subjective - Date & Time of Evaluation Date of Evaluation: 09/05/18 Time of Evaluation: 15:05 - Subjective Subjective: PT AWAKE ON PRVC. DISCUSSED WITH CC AND PCP AT BEDSIDE. Objective - Vital Signs/Intake and Output Vital Signs (last 24 hours): Temp Pulse Resp BP Pulse Ox 99.1 F 97 H 22 190/72 H 93 L 09/05/18 12:00 09/05/18 14:00 09/05/18 14:00 09/05/18 14:00 09/05/18 14:00 Intake and Output: 09/05/18 09/05/18 06:59 18:59 Intake Total 1400 650 Output Total 1100 1000 Balance 300 -350 - Medications Medications: Current Medications Acetaminophen (Tylenol 650mg/20.3ml Solution Ud) 650 mg NG Q6 PRN PRN Reason: Temperature Last Admin: 08/25/18 01:06 Dose: 650 mg Acetaminophen (Tylenol 650mg/20.3ml Solution Ud) 650 mg PO Q6 PRN PRN Reason: Pain, Mild (1-3) Last Admin: 09/02/18 05:54 Dose: 650 mg Albuterol/Ipratropium (Duoneb 3 Mg/0.5 Mg (3 Ml) Ud) 3 ml INH RQ6 PRN PRN Reason: Shortness of Breath Last Admin: 08/31/18 22:00 Dose: 3 ml Amlodipine Besylate (Norvasc) 5 mg PO Q12 [facility] Last Admin: 09/05/18 08:41 Dose: 5 mg Aspirin (Aspirin Chewable) 81 mg NG DAILY [facility] Enoxaparin Sodium (Lovenox) 80 mg SC DAILY [facility]; Protocol Hydralazine HCl (Apresoline) 100 mg PO Q8 [facility] Last Admin: 09/05/18 08:41 Dose: 100 mg Hydrocortisone (Cortef) 100 mg PO Q8 [facility] Meropenem 500 mg/ Sodium (Chloride) 100 mls @ 100 mls/hr IVPB Q8 [facility]; Protocol Last Admin: 09/05/18 08:43 Dose: 100 mls/hr Linezolid (Zyvox 600mg/300ml D5w) 600 mg in 300 mls @ 300 mls/hr IVPB Q12 [facility]; Protocol Last Admin: 09/05/18 08:44 Dose: 300 mls/hr Fluconazole (Diflucan Iv 100 Mg/50 Ml Ns) 50 mls @ 50 mls/hr IVPB DAILY [facility]; Protocol Stop: 09/09/18 12:00 Last Admin: 09/05/18 08:43 Dose: 50 mls/hr Propofol (Diprivan) 1,000 mg in 100 mls @ 3.654 mls/hr IV .Q24H [facility]; Protocol Stop: 09/06/18 10:44 Last Titration: 09/05/18 14:52 Dose: 17 mcg/kg/min, 8.282 mls/hr Insulin Detemir (Levemir) 12 units SC DAILY [facility] Last Admin: 09/05/18 08:42 Dose: 12 unit Insulin Human Lispro (Humalog) 0 units SC [facility]; Protocol Last Admin: 09/05/18 12:03 Dose: 4 u Meclizine HCl (Antivert) 12.5 mg PO DAILY [facility] Last Admin: 08/18/18 09:27 Dose: 12.5 mg Metformin HCl (Glucophage) 1,000 mg PO BID [facility] Last Admin: 08/16/18 09:34 Dose: Not Given Metoprolol Tartrate (Lopressor) 50 mg PO Q6 [facility] Last Admin: 09/05/18 11:04 Dose: 50 mg Pantoprazole Sodium (Protonix Susp) 40 mg NG DAILY [facility] Last Admin: 09/05/18 08:42 Dose: 40 mg Sucralfate (Carafate Oral Susp) 1 gm PO [facility] Last Admin: 08/18/18 22:07 Dose: 1 gm - Labs Labs: 09/05/18 05:00 09/05/18 05:00 PT 13.3 Seconds (9.8-13.1) H 08/25/18 05:00 INR 1.2 08/25/18 05:00 APTT 29.9 Seconds (25.6-37.1) 08/25/18 05:00 - Constitutional Appears: Chronically Ill - Head Exam Head Exam: ATRAUMATIC, NORMAL INSPECTION, NORMOCEPHALIC - Eye Exam Eye Exam: EOMI, Normal appearance, PERRL. absent: Conjunctival injection, Nystagmus, Periorbital swelling, Periorbital tenderness, Scleral icterus Pupil Exam: NORMAL ACCOMODATION, PERRL - ENT Exam ENT Exam: Mucous Membranes Moist, Normal Exam. absent: Mucous Membranes Dry, Normal External Ear Exam, Normal Oropharynx, TM's Normal Bilaterally - Neck Exam Neck Exam: Full ROM, Normal Inspection - Respiratory Exam Respiratory Exam: Decreased Breath Sounds, Rhonchi Additional comments: VENTED - Cardiovascular Exam Cardiovascular Exam: REGULAR RHYTHM, +S1, +S2, Murmur. absent: Bradycardia, Tachycardia, Clicks, Diastolic murmur, Gallop, Irregular Rhythm, JVD, RRR, Rubs, +S4 - GI/Abdominal Exam GI & Abdominal Exam: Soft, Normal Bowel Sounds. absent: Bruit, Distended, Firm, Guarding, Rigid, Tenderness, Diminished Bowel Sounds, Hernia, Hyperactive Bowel Sounds, Hypoactive Bowel Sounds, Organomegaly, Pulsatile Mass, Rebound, Mass - Rectal Exam Rectal Exam: Deferred - Extremities Exam Extremities Exam: Full ROM, Normal Capillary Refill, Pedal Edema. absent: Calf Tenderness, Joint Swelling, Tenderness - Back Exam Back Exam: NORMAL INSPECTION. absent: CVA tenderness (L), CVA tenderness (R), Full ROM, muscle spasm, paraspinal tenderness, rash noted, tenderness, vertebral tenderness - Neurological Exam Neurological Exam: Awake. absent: Abnormal Gait, Alert, Altered, CN II-XII Intact, Motor Sensory Deficit, Normal Gait, Oriented x3, Reflexes Normal - Psychiatric Exam Psychiatric exam: Agitated - Skin Skin Exam: Intact, Normal Color, Warm Assessment and Plan (1) AURORA (acute kidney injury) Status: Acute (2) Acute respiratory failure Status: Acute (3) Mental status alteration Status: Acute (4) NSTEMI (non-ST elevated myocardial infarction) Status: Acute (5) Abnormal EKG Status: Chronic (6) Type 2 diabetes mellitus with hyperglycemia Status: Chronic (7) Hypertension Status: Chronic (8) DVT (deep venous thrombosis) Status: Acute (9) Severe anemia Status: Acute (10) Nausea & vomiting Status: Resolved (11) Acute hypernatremia Status: Resolved - Assessment and Plan (Free Text) Plan: WILL TRY IV STEROIDS GIVEN ESR AND CT RESULTS. WILL ASK IR TO DO B/L THORACENTESIS. OK TO HOLD ANTICOAGULATION FOR IR PROCEDURES. MONITOR HB AND CR. RUN LABS ON PLEURAL FLUID. 55 MIN TOTAL CARE TIME.
--- NOTE | 2018-09-05 16:13 | CP.CCUPN ---
CCU Subjective - Physician Review Subjective (Free Text): 09/05/18 16:03 The patient was Seen and examined by me at the bedside during ICU round, Medical records reviewed and Management issues were discussed and formulated with the house staff. Events reviewed Patient with Acute respiratory failure, Cardiac arrest s/p resuscitation Patient transferred to ICU 08/19 after ?Cardiac arrest (likely syncopal episodes) while she was in Nuclear department for HIDA scan, she collapsed to the floor, but awake, had palpable pulses and spontanous breathing, so no resuscitative measures performed, she was transferred to the ER, few minutes after arriving to the ER, she was found hypotension to 60/38 and bradycardia, Code Blue was called, Received epinephrine x 4 and subsequently ROSC, she was intubated and TLC placed. Patient was successfully extubated on 08/30 then re-intubated Clinically improving, No Vasopressors This morning, she remains orally intubated, on ventilator, on PRVC TV 400, RR 12, FIO2 40% All sedations discontinued Awake, opens eyes to verbal stimuli but not following commands Afebrile, Tmx 99.6 NSR on the monitor Last 24H I&O 2900/1500 This morning Patient was placed on Patient placed on spontaneous breathing rial at 9AM this morning and only tolerated for tolerated for an hour then became tachycardic and Tachypnic Will continue diuresis and add steroids for elevated ESR, possible ARDS, sepsis, inflammatory process labs revealed improved Leucocytosis 11.6, she is afebrile improving renal function BUN/Cr down to 60/1.7 No evidence of active bleed, H/H Stable CXR and chest Ct scan consistent with bilateral pleural effusion, will arrange for IR thoracocentesis for tomorrow CCU Objective - Vital Signs / Intake & Output Vital Signs (Last 4 hours): Vital Signs Pulse Resp BP Pulse Ox 09/05/18 14:00 97 H 22 190/72 H 93 L Intake and Output (Last 8hrs): Intake & Output 09/05/18 09/05/18 09/05/18 06:59 14:59 22:59 Intake Total 600 650 0 Output Total 1100 1000 Balance -500 -350 0 Weight 179 lb Intake: IV 0 0 0 Intake, Piggyback 450 Tube Feeding 200 Free Water Flush 400 200 Output: Urine 1100 1000 Urethral (Jin) 1100 1000 - Physical Exam Head: Positive for: Atraumatic, Normocephalic Pupils: Positive for: PERRL. Negative for: Sluggish, Non-Reactive, Pinpoint Conjunctiva: Positive for: Normal. Negative for: Injected, Icteric Mouth: Positive for: Moist Mucous Membranes Nose (External): Positive for: Atraumatic Neck: Positive for: Normal Range of Motion Respiratory/Chest: Positive for: Rhonchi Cardiovascular: Positive for: Regular Rate and Rhythm Abdomen: Positive for: Normal Bowel Sounds. Negative for: Tenderness, Distention, Peritoneal Signs Upper Extremity: Positive for: Normal Inspection, NORMAL PULSES, Capillary Refill < 2s. Negative for: Cyanosis, Edema Lower Extremity: Positive for: Normal Inspection. Negative for: Edema, CALF TENDERNESS Neurological: Positive for: Other (on ventilator, opens eyes to verbal stimuli). Negative for: GCS=15, CN II-XII Intact, Speech Normal, Motor Func Grossly Intact, Normal Sensory Function, Normal Cerebellar Funct, Norm Deep Tendon Reflexes, Gait Normal, Memory Normal, Normal 2Pt Descrimination Psychiatric: Negative for: Alert, Oriented x 3 - Medications Active Medications: Active Medications Generic Name Dose Route Start Last Admin Trade Name Freq PRN Reason Stop Dose Admin Acetaminophen 650 mg 08/24/18 10:29 08/25/18 01:06 Tylenol 650mg/20.3ml Solution Ud NG 650 mg Q6 PRN Administration Temperature Acetaminophen 650 mg 08/31/18 19:57 09/02/18 05:54 Tylenol 650mg/20.3ml Solution Ud PO 650 mg Q6 PRN Administration Pain, Mild (1-3) Albuterol/Ipratropium 3 ml 08/31/18 14:34 08/31/18 22:00 Duoneb 3 Mg/0.5 Mg (3 Ml) Ud INH 3 ml RQ6 PRN Administration Shortness of Breath Amlodipine Besylate 5 mg 08/22/18 21:00 09/05/18 08:41 Norvasc PO 5 mg Q12 [facility] Administration Aspirin 81 mg 09/06/18 09:00 Aspirin Chewable NG DAILY [facility] Dimethicone 1 applic 09/05/18 17:00 Proshield Plus Skin Protectant TOP Q8 [facility] Enoxaparin Sodium 80 mg 09/05/18 21:00 Lovenox SC DAILY [facility] Protocol Hydralazine HCl 100 mg 08/31/18 11:00 09/05/18 08:41 Apresoline PO 100 mg Q8 [facility] Administration Hydrocortisone 100 mg 09/05/18 17:00 Cortef PO Q8 [facility] Meropenem 500 mg/ Sodium 100 mls @ 100 mls/hr 08/24/18 12:30 09/05/18 08:43 Chloride IVPB 100 mls/hr Q8 [facility] Administration Protocol Linezolid 600 mg in 300 mls @ 300 mls/hr 08/27/18 13:35 09/05/18 08:44 Zyvox 600mg/300ml D5w IVPB 300 mls/hr Q12 [facility] Administration Protocol Fluconazole 50 mls @ 50 mls/hr 09/03/18 18:00 09/05/18 08:43 Diflucan Iv 100 Mg/50 Ml Ns IVPB 09/09/18 12:00 50 mls/hr DAILY [facility] Administration Protocol Propofol 1,000 mg in 100 mls @ 3.654 mls/hr 09/05/18 10:45 09/05/18 15:15 Diprivan IV 09/06/18 10:44 22 mcg/kg/min .Q24H [facility] 10.717 mls/hr Titration Protocol 7.5 MCG/KG/MIN Insulin Detemir 12 units 08/26/18 14:00 09/05/18 08:42 Levemir SC 12 unit DAILY [facility] Administration Insulin Human Lispro 0 units 08/13/18 11:30 09/05/18 12:03 Humalog SC 4 u ACHS [facility] Administration Protocol Meclizine HCl 12.5 mg 08/13/18 09:00 08/18/18 09:27 Antivert PO 12.5 mg DAILY [facility] Administration Metformin HCl 1,000 mg 08/13/18 09:00 08/16/18 09:34 Glucophage PO Not Given BID [facility] Metoprolol Tartrate 50 mg 09/02/18 16:00 09/05/18 11:04 Lopressor PO 50 mg Q6 [facility] Administration Nystatin 1 applic 09/05/18 17:00 Nystop Topical Powder TOP TID [facility] Pantoprazole Sodium 40 mg 09/01/18 14:00 09/05/18 08:42 Protonix Susp NG 40 mg DAILY [facility] Administration Sucralfate 1 gm 08/14/18 20:30 08/18/18 22:07 Carafate Oral Susp PO 1 gm ACHS [facility] Administration - Patient Studies Lab Studies: Microbiology Studies 09/02/18 10:15 Blood Culture - Preliminary Blood-Thru Central Line NO GROWTH AFTER 3 DAYS 09/02/18 10:30 Blood Culture - Preliminary Blood-Thru Central Line NO GROWTH AFTER 3 DAYS Lab Studies 09/05/18 09/05/18 09/05/18 Range/Units 10:50 05:23 05:00 WBC (4.8-10.8) K/uL RBC (3.80-5.20) Mil/uL Hgb (12.0-16.0) g/dL Hct (34.0-47.0) % MCV (81.0-99.0) fl MCH (27.0-31.0) pg MCHC (33.0-37.0) g/dL RDW (11.5-14.5) % Plt Count (130-400) K/uL pCO2 (35-45) mm/Hg pO2 (80-100) mm/Hg HCO3 (21-28) mmol/L ABG pH (7.35-7.45) ABG Total CO2 (22-28) mmol/L ABG O2 Saturation (95-98) % ABG O2 Content (15-23) ML/dL ABG Base Excess (-2.0-3.0) mmol/L ABG Hemoglobin (11.7-17.4) g/dL ABG Carboxyhemoglobin (0.5-1.5) % POC ABG HHb (Measured) (0.0-5.0) % ABG Methemoglobin (0.0-3.0) % ABG O2 Capacity (16-24) mL/dL Masoud Test A-a O2 Difference mm/Hg Hgb O2 Saturation (95.0-98.0) % Vent Mode Mechanical Rate FiO2 % Tidal Volume PEEP Sodium 138 (132-148) mmol/l Potassium 3.8 (3.6-5.0) MMOL/L Chloride 103 (98-107) mmol/L Carbon Dioxide 23 (22-30) mmol/L Anion Gap 16 (10-20) BUN 60 H (7-17) mg/dl Creatinine 1.7 H (0.7-1.2) mg/dl Est GFR ( Amer) 35 Est GFR (Non-Af Amer) 29 POC Glucose (mg/dL) 331 H 278 H (65-110) mg/dL Random Glucose 294 H (65-105) mg/dL Calcium 7.7 L (8.4-10.2) mg/dL Total Bilirubin 0.3 (0.2-1.3) mg/dl AST 23 (14-36) U/L ALT 32 (9-52) U/L Alkaline Phosphatase 172 H (38-126) U/L Total Protein 5.7 L (6.3-8.2) G/DL Albumin 2.6 L (3.5-5.0) g/dL Globulin 3.1 (2.2-3.9) gm/dL Albumin/Globulin Ratio 0.8 L (1.0-2.1) 09/05/18 09/05/18 09/04/18 Range/Units 05:00 04:08 21:18 WBC 11.6 H (4.8-10.8) K/uL RBC 3.58 L (3.80-5.20) Mil/uL Hgb 10.2 L (12.0-16.0) g/dL Hct 30.4 L (34.0-47.0) % MCV 84.8 (81.0-99.0) fl MCH 28.5 (27.0-31.0) pg MCHC 33.6 (33.0-37.0) g/dL RDW 23.0 H (11.5-14.5) % Plt Count 363 (130-400) K/uL pCO2 33 L (35-45) mm/Hg pO2 106 H (80-100) mm/Hg HCO3 25.5 (21-28) mmol/L ABG pH 7.47 H (7.35-7.45) ABG Total CO2 25.0 (22-28) mmol/L ABG O2 Saturation 99.5 H (95-98) % ABG O2 Content 14.6 L (15-23) ML/dL ABG Base Excess 0.7 (-2.0-3.0) mmol/L ABG Hemoglobin 10.6 L (11.7-17.4) g/dL ABG Carboxyhemoglobin 1.3 (0.5-1.5) % POC ABG HHb (Measured) 0.5 (0.0-5.0) % ABG Methemoglobin 1.3 (0.0-3.0) % ABG O2 Capacity 14.7 L (16-24) mL/dL Masoud Test Yes A-a O2 Difference 209.0 mm/Hg Hgb O2 Saturation 96.9 (95.0-98.0) % Vent Mode Ac Mechanical Rate 10 FiO2 50.0 % Tidal Volume 400 PEEP 5 Sodium (132-148) mmol/l Potassium (3.6-5.0) MMOL/L Chloride (98-107) mmol/L Carbon Dioxide (22-30) mmol/L Anion Gap (10-20) BUN (7-17) mg/dl Creatinine (0.7-1.2) mg/dl Est GFR ( Amer) Est GFR (Non-Af Amer) POC Glucose (mg/dL) 250 H (65-110) mg/dL Random Glucose (65-105) mg/dL Calcium (8.4-10.2) mg/dL Total Bilirubin (0.2-1.3) mg/dl AST (14-36) U/L ALT (9-52) U/L Alkaline Phosphatase (38-126) U/L Total Protein (6.3-8.2) G/DL Albumin (3.5-5.0) g/dL Globulin (2.2-3.9) gm/dL Albumin/Globulin Ratio (1.0-2.1) 09/04/18 09/04/18 Range/Units 16:19 04:00 WBC (4.8-10.8) K/uL RBC (3.80-5.20) Mil/uL Hgb (12.0-16.0) g/dL Hct (34.0-47.0) % MCV (81.0-99.0) fl MCH (27.0-31.0) pg MCHC (33.0-37.0) g/dL RDW (11.5-14.5) % Plt Count (130-400) K/uL pCO2 36 (35-45) mm/Hg pO2 157 H (80-100) mm/Hg HCO3 25.3 (21-28) mmol/L ABG pH 7.44 (7.35-7.45) ABG Total CO2 25.6 (22-28) mmol/L ABG O2 Saturation 99.7 H (95-98) % ABG O2 Content 14.4 L (15-23) ML/dL ABG Base Excess 0.5 (-2.0-3.0) mmol/L ABG Hemoglobin 10.3 L (11.7-17.4) g/dL ABG Carboxyhemoglobin 1.0 (0.5-1.5) % POC ABG HHb (Measured) 0.3 (0.0-5.0) % ABG Methemoglobin 1.5 (0.0-3.0) % ABG O2 Capacity 14.4 L (16-24) mL/dL Masoud Test Yes A-a O2 Difference 368.0 mm/Hg Hgb O2 Saturation 97.2 (95.0-98.0) % Vent Mode A/c Mechanical Rate 10 FiO2 80.0 % Tidal Volume 400 PEEP 5 Sodium (132-148) mmol/l Potassium (3.6-5.0) MMOL/L Chloride (98-107) mmol/L Carbon Dioxide (22-30) mmol/L Anion Gap (10-20) BUN (7-17) mg/dl Creatinine (0.7-1.2) mg/dl Est GFR ( Amer) Est GFR (Non-Af Amer) POC Glucose (mg/dL) 259 H (65-110) mg/dL Random Glucose (65-105) mg/dL Calcium (8.4-10.2) mg/dL Total Bilirubin (0.2-1.3) mg/dl AST (14-36) U/L ALT (9-52) U/L Alkaline Phosphatase (38-126) U/L Total Protein (6.3-8.2) G/DL Albumin (3.5-5.0) g/dL Globulin (2.2-3.9) gm/dL Albumin/Globulin Ratio (1.0-2.1) Laboratory Results - last 24 hr 09/04/18 09/04/18 09/04/18 04:00 16:19 21:18 WBC RBC Hgb Hct MCV MCH MCHC RDW Plt Count pCO2 36 pO2 157 H HCO3 25.3 ABG pH 7.44 ABG Total CO2 25.6 ABG O2 Saturation 99.7 H ABG O2 Content 14.4 L ABG Base Excess 0.5 ABG Hemoglobin 10.3 L ABG Carboxyhemoglobin 1.0 POC ABG HHb (Measured) 0.3 ABG Methemoglobin 1.5 ABG O2 Capacity 14.4 L Masoud Test Yes A-a O2 Difference 368.0 Hgb O2 Saturation 97.2 Vent Mode A/c Mechanical Rate 10 FiO2 80.0 Tidal Volume 400 PEEP 5 Sodium Potassium Chloride Carbon Dioxide Anion Gap BUN Creatinine Est GFR ( Amer) Est GFR (Non-Af Amer) POC Glucose (mg/dL) 259 H 250 H Random Glucose Calcium Total Bilirubin AST ALT Alkaline Phosphatase Total Protein Albumin Globulin Albumin/Globulin Ratio 09/05/18 09/05/18 09/05/18 04:08 05:00 05:00 WBC 11.6 H RBC 3.58 L Hgb 10.2 L Hct 30.4 L MCV 84.8 MCH 28.5 MCHC 33.6 RDW 23.0 H Plt Count 363 pCO2 33 L pO2 106 H HCO3 25.5 ABG pH 7.47 H ABG Total CO2 25.0 ABG O2 Saturation 99.5 H ABG O2 Content 14.6 L ABG Base Excess 0.7 ABG Hemoglobin 10.6 L ABG Carboxyhemoglobin 1.3 POC ABG HHb (Measured) 0.5 ABG Methemoglobin 1.3 ABG O2 Capacity 14.7 L Masoud Test Yes A-a O2 Difference 209.0 Hgb O2 Saturation 96.9 Vent Mode Ac Mechanical Rate 10 FiO2 50.0 Tidal Volume 400 PEEP 5 Sodium 138 Potassium 3.8 Chloride 103 Carbon Dioxide 23 Anion Gap 16 BUN 60 H Creatinine 1.7 H Est GFR ( Amer) 35 Est GFR (Non-Af Amer) 29 POC Glucose (mg/dL) Random Glucose 294 H Calcium 7.7 L Total Bilirubin 0.3 AST 23 ALT 32 Alkaline Phosphatase 172 H Total Protein 5.7 L Albumin 2.6 L Globulin 3.1 Albumin/Globulin Ratio 0.8 L 09/05/18 09/05/18 05:23 10:50 WBC RBC Hgb Hct MCV MCH MCHC RDW Plt Count pCO2 pO2 HCO3 ABG pH ABG Total CO2 ABG O2 Saturation ABG O2 Content ABG Base Excess ABG Hemoglobin ABG Carboxyhemoglobin POC ABG HHb (Measured) ABG Methemoglobin ABG O2 Capacity Masoud Test A-a O2 Difference Hgb O2 Saturation Vent Mode Mechanical Rate FiO2 Tidal Volume PEEP Sodium Potassium Chloride Carbon Dioxide Anion Gap BUN Creatinine Est GFR ( Amer) Est GFR (Non-Af Amer) POC Glucose (mg/dL) 278 H 331 H Random Glucose Calcium Total Bilirubin AST ALT Alkaline Phosphatase Total Protein Albumin Globulin Albumin/Globulin Ratio Fingerstick Blood Sugar Results: 331 Review of Systems - Review of Systems Systems not reviewed;Unavailable: Intubated Critical Care Progress Note - Ventilator Checklist Head of Bed 30 Degrees: Yes Daily Sedation Vacation: Yes Daily Assessment of Readiness to Wean: Yes Daily Spontaneous Breathing Trial: Yes PUD Prophalyxis: Yes DVT Prophylaxis: Yes Oral Care with Chlorhexidine Gluconate {CHG}: Yes - Extremities/Vascular Does the Patient have a Central Venous Catheter?: Yes Does the Patient need a Central Venous Catheter?: Yes Does the Patient have a Jin Catheter?: Yes Does the Patient need a Jin Catheter?: Yes Assessment/Plan (1) Acute respiratory failure Current Visit: Yes Status: Acute Priority: High Comment: This morning Patient was placed on Patient placed on spontaneous breathing rial at 9AM this morning and only tolerated for tolerated for an hour then became tachycardic and Tachypnic CXR and chest Ct scan consistant with bilateral pleural effusion, will arrange for IR thoracocentesis Vent weaning in progress Daily CAT/SBT (2) Cardiac arrest Current Visit: Yes Status: Acute Comment: All sedations discontinued, she is Awake, opens eyes to verbal stimuli and following commands Kep off sedations Frequent neuro check (3) NSTEMI (non-ST elevated myocardial infarction) Current Visit: Yes Status: Acute Priority: High (4) Bacteremia Current Visit: Yes Status: Deleted Priority: High Comment: Most recent culture from 08/19 (Blood, urine and sputum) negative Continue IV antibiotics with IV Vancomycin and Piperacillin Sod/Tazobactam (5) AURORA (acute kidney injury) Current Visit: Yes Status: Acute (6) Anginal equivalent Current Visit: Yes Status: Acute (7) Aspiration pneumonia Current Visit: Yes Status: Acute Priority: High (8) Cholelithiasis Current Visit: Yes Status: Acute
--- NOTE | 2018-09-05 16:37 | CP.PCM.PN ---
Subjective - Date & Time of Evaluation Date of Evaluation: 09/05/18 Time of Evaluation: 10:00 - Subjective Subjective: F/U Respiratory Failure Pt intubated, follows simple commands with head movements. Objective - Vital Signs/Intake and Output Vital Signs (last 24 hours): Temp Pulse Resp BP Pulse Ox 98.0 F 67 12 117/47 L 100 09/05/18 16:00 09/05/18 16:00 09/05/18 16:00 09/05/18 16:00 09/05/18 16:00 Intake and Output: 09/05/18 09/05/18 06:59 18:59 Intake Total 1400 650 Output Total 1100 1000 Balance 300 -350 - Medications Medications: Current Medications Acetaminophen (Tylenol 650mg/20.3ml Solution Ud) 650 mg NG Q6 PRN PRN Reason: Temperature Last Admin: 08/25/18 01:06 Dose: 650 mg Acetaminophen (Tylenol 650mg/20.3ml Solution Ud) 650 mg PO Q6 PRN PRN Reason: Pain, Mild (1-3) Last Admin: 09/02/18 05:54 Dose: 650 mg Albuterol/Ipratropium (Duoneb 3 Mg/0.5 Mg (3 Ml) Ud) 3 ml INH RQ6 PRN PRN Reason: Shortness of Breath Last Admin: 08/31/18 22:00 Dose: 3 ml Amlodipine Besylate (Norvasc) 5 mg PO Q12 [facility] Last Admin: 09/05/18 08:41 Dose: 5 mg Aspirin (Aspirin Chewable) 81 mg NG DAILY [facility] Dimethicone (Proshield Plus Skin Protectant) 1 applic TOP Q8 [facility] Enoxaparin Sodium (Lovenox) 80 mg SC DAILY [facility]; Protocol Hydralazine HCl (Apresoline) 100 mg PO Q8 [facility] Last Admin: 09/05/18 08:41 Dose: 100 mg Hydrocortisone (Cortef) 100 mg PO Q8 [facility] Meropenem 500 mg/ Sodium (Chloride) 100 mls @ 100 mls/hr IVPB Q8 [facility]; Protocol Last Admin: 09/05/18 08:43 Dose: 100 mls/hr Linezolid (Zyvox 600mg/300ml D5w) 600 mg in 300 mls @ 300 mls/hr IVPB Q12 [facility]; Protocol Last Admin: 09/05/18 08:44 Dose: 300 mls/hr Fluconazole (Diflucan Iv 100 Mg/50 Ml Ns) 50 mls @ 50 mls/hr IVPB DAILY [facility]; Protocol Stop: 09/09/18 12:00 Last Admin: 09/05/18 08:43 Dose: 50 mls/hr Propofol (Diprivan) 1,000 mg in 100 mls @ 3.654 mls/hr IV .Q24H [facility]; Protocol Stop: 09/06/18 10:44 Last Titration: 09/05/18 15:15 Dose: 22 mcg/kg/min, 10.717 mls/hr Insulin Detemir (Levemir) 12 units SC DAILY [facility] Last Admin: 09/05/18 08:42 Dose: 12 unit Insulin Human Lispro (Humalog) 0 units SC [facility]; Protocol Last Admin: 09/05/18 12:03 Dose: 4 u Meclizine HCl (Antivert) 12.5 mg PO DAILY [facility] Last Admin: 08/18/18 09:27 Dose: 12.5 mg Metformin HCl (Glucophage) 1,000 mg PO BID [facility] Last Admin: 08/16/18 09:34 Dose: Not Given Metoprolol Tartrate (Lopressor) 50 mg PO Q6 [facility] Last Admin: 09/05/18 11:04 Dose: 50 mg Nystatin (Nystop Topical Powder) 1 applic TOP TID [facility] Pantoprazole Sodium (Protonix Susp) 40 mg NG DAILY [facility] Last Admin: 09/05/18 08:42 Dose: 40 mg Sucralfate (Carafate Oral Susp) 1 gm PO [facility] Last Admin: 08/18/18 22:07 Dose: 1 gm - Labs Labs: 09/05/18 05:00 09/05/18 05:00 PT 13.3 Seconds (9.8-13.1) H 08/25/18 05:00 INR 1.2 08/25/18 05:00 APTT 29.9 Seconds (25.6-37.1) 08/25/18 05:00 - Constitutional Appears: Chronically Ill - Head Exam Head Exam: NORMAL INSPECTION - Eye Exam Eye Exam: PERRL - ENT Exam Additional comments: Intubated, OGT - Neck Exam Neck Exam: Normal Inspection - Respiratory Exam Respiratory Exam: Decreased Breath Sounds (b/l), Rhonchi (scattered) - Cardiovascular Exam Cardiovascular Exam: REGULAR RHYTHM, Murmur (systolic) - GI/Abdominal Exam GI & Abdominal Exam: Soft, Normal Bowel Sounds - Extremities Exam Additional comments: Edema all extremities - Neurological Exam Additional comments: Intubated, open eyes to verbal/tactile stimuli, follows simple commands with head movements. - Skin Skin Exam: Warm Assessment and Plan (1) Acute respiratory failure Status: Acute (2) Cardiac arrest Status: Acute (3) Aspiration pneumonia Status: Acute (4) Pleural effusion Status: Acute (5) Atelectasis of both lungs Status: Acute (6) NSTEMI (non-ST elevated myocardial infarction) Status: Acute (7) CHF (congestive heart failure) Status: Acute (8) DVT (deep venous thrombosis) Status: Acute (9) Severe anemia Status: Acute - Assessment and Plan (Free Text) Plan: Attempt of weaning failure, for Thoracentesis in am, Zyvox, Merren, Diflucan ,SoluMedrol and rest of Tx. Critical care time: 34 min.
[2018-09-05] MEDS: Proshield Plus GEL TOP SCH (17:07)
--- NOTE | 2018-09-05 20:24 | CP.PCM.PN ---
Subjective - Date & Time of Evaluation Date of Evaluation: 09/05/18 Time of Evaluation: 15:15 - Subjective Subjective: Seen and examined at the bed side. D/w Security Operations Manager, and Front Elevator Operator, and reviewed the CT scan, and would do THoracentesis, and asl Hydrocortisone IV as patient had persistently high Inflammatory marker. No fever. Follows Command, and Failed CPAP trial today. Currently on MV on PRVC with FIO2 40%. Objective - Vital Signs/Intake and Output Vital Signs (last 24 hours): Temp Pulse Resp BP Pulse Ox 98.0 F 71 18 146/64 100 09/05/18 16:00 09/05/18 20:00 09/05/18 20:00 09/05/18 20:00 09/05/18 20:00 Intake and Output: 09/05/18 09/06/18 18:59 06:59 Intake Total 1550 300 Output Total 1500 Balance 50 300 - Medications Medications: Current Medications Acetaminophen (Tylenol 650mg/20.3ml Solution Ud) 650 mg NG Q6 PRN PRN Reason: Temperature Last Admin: 08/25/18 01:06 Dose: 650 mg Acetaminophen (Tylenol 650mg/20.3ml Solution Ud) 650 mg PO Q6 PRN PRN Reason: Pain, Mild (1-3) Last Admin: 09/02/18 05:54 Dose: 650 mg Albuterol/Ipratropium (Duoneb 3 Mg/0.5 Mg (3 Ml) Ud) 3 ml INH RQ6 PRN PRN Reason: Shortness of Breath Last Admin: 08/31/18 22:00 Dose: 3 ml Amlodipine Besylate (Norvasc) 5 mg PO Q12 [facility] Last Admin: 09/05/18 08:41 Dose: 5 mg Aspirin (Aspirin Chewable) 81 mg NG DAILY [facility] Dimethicone (Proshield Plus Skin Protectant) 1 applic TOP Q8 [facility] Last Admin: 09/05/18 17:07 Dose: 1 applic Enoxaparin Sodium (Lovenox) 80 mg SC DAILY [facility]; Protocol Last Admin: 09/05/18 20:18 Dose: Not Given Hydralazine HCl (Apresoline) 100 mg PO Q8 [facility] Last Admin: 09/05/18 16:48 Dose: 100 mg Meropenem 500 mg/ Sodium (Chloride) 100 mls @ 100 mls/hr IVPB Q8 [facility]; Protocol Last Admin: 09/05/18 16:48 Dose: 100 mls/hr Linezolid (Zyvox 600mg/300ml D5w) 600 mg in 300 mls @ 300 mls/hr IVPB Q12 [facility]; Protocol Last Admin: 09/05/18 08:44 Dose: 300 mls/hr Fluconazole (Diflucan Iv 100 Mg/50 Ml Ns) 50 mls @ 50 mls/hr IVPB DAILY [facility]; Protocol Stop: 09/09/18 12:00 Last Admin: 09/05/18 08:43 Dose: 50 mls/hr Propofol (Diprivan) 1,000 mg in 100 mls @ 3.654 mls/hr IV .Q24H [facility]; Protocol Stop: 09/06/18 10:44 Last Titration: 09/05/18 16:44 Dose: 17 mcg/kg/min, 8.282 mls/hr Propofol (Diprivan) 1,000 mg in 100 mls @ 7.307 mls/hr IV .[id number] [facility]; Protocol Stop: 09/06/18 20:00 Insulin Detemir (Levemir) 12 units SC DAILY [facility] Last Admin: 09/05/18 08:42 Dose: 12 unit Insulin Human Lispro (Humalog) 0 units SC [facility]; Protocol Meclizine HCl (Antivert) 12.5 mg PO DAILY [facility] Last Admin: 08/18/18 09:27 Dose: 12.5 mg Metformin HCl (Glucophage) 1,000 mg PO BID [facility] Last Admin: 08/16/18 09:34 Dose: Not Given Methylprednisolone (Solu-Medrol) 60 mg IV Q8H [facility] Last Admin: 09/05/18 20:19 Dose: 60 mg Metoprolol Tartrate (Lopressor) 50 mg PO Q6 [facility] Last Admin: 09/05/18 16:47 Dose: 50 mg Nystatin (Nystop Topical Powder) 1 applic TOP TID [facility] Last Admin: 09/05/18 17:06 Dose: 1 applic Pantoprazole Sodium (Protonix Susp) 40 mg NG DAILY [facility] Last Admin: 09/05/18 08:42 Dose: 40 mg Sucralfate (Carafate Oral Susp) 1 gm PO ACHS [facility] Last Admin: 08/18/18 22:07 Dose: 1 gm - Labs Labs: 12/10/18 05:00 09/05/18 05:00 PT 13.3 Seconds (9.8-13.1) H 08/25/18 05:00 INR 1.2 08/25/18 05:00 APTT 29.9 Seconds (25.6-37.1) 08/25/18 05:00 - Head Exam Head Exam: ATRAUMATIC, NORMAL INSPECTION, NORMOCEPHALIC - Cardiovascular Exam Cardiovascular Exam: Tachycardia, +S1, +S2 Assessment and Plan (1) DVT (deep venous thrombosis) Status: Acute (2) Cardiac arrest Status: Acute (3) Acute respiratory failure Status: Acute (4) Hypertensive urgency Status: Resolved (5) AURORA (acute kidney injury) Status: Acute (6) NSTEMI (non-ST elevated myocardial infarction) Status: Acute (7) Type 2 diabetes mellitus with hyperglycemia Status: Chronic (8) Acute gastroenteritis Status: Resolved (9) Abdominal pain in female Status: Resolved (10) Gallbladder disease Status: Acute (11) Severe anemia Status: Acute (12) Aspiration pneumonia Status: Acute - Assessment and Plan (Free Text) Plan: Continue current care CT Guided Therapeutic Tharacentesis\Added Hydrocortisone\IV ABx and Difican
[2018-09-05] MEDS: Propofol 10 mg/ml 1,000 MG/100 ML VIAL IV SCH (21:46)
[2018-09-06] MEDS: Meropenem 500 MG in Sodium Chloride 0.9% 100 ML IVPB SCH ×3 (00:05→16:15)
[2018-09-06 05:13] LABS: ABG ALLEN TEST YES; ARTERIAL BLOOD GAS HCO3 25.2 mmol/L (21-28); ARTERIAL BLOOD GAS HEMOGLOBIN 10.9 g/dL (11.7-17.4); ARTERIAL BLOOD GAS O2 CAPACITY 15.1 mL/dL (16-24); ARTERIAL BLOOD GAS O2 SAT 99.1 % (95-98); ARTERIAL BLOOD GAS PCO2 37 mm/Hg (35-45); ARTERIAL BLOOD GAS PH 7.43 (7.35-7.45); ARTERIAL BLOOD GAS PO2 103 mm/Hg (80-100); ARTERIAL BLOOD GAS TCO2 25.7 mmol/L (22-28)
[2018-09-06 05:28] LABS: HEMOGLOBIN 10.7 g/dL (12.0-16.0); MEAN CORPUSCULAR HEMOGLOBIN 28.6 pg (27.0-31.0); MEAN CORPUSCULAR HGB CONC 33.3 g/dL (33.0-37.0); RBC 3.73 Mil/uL (3.80-5.20); WHITE BLOOD COUNT 9.1 K/uL (4.8-10.8)
[2018-09-06 05:31] LABS: ALB/GLOB RATIO 0.8 (1.0-2.1); ALBUMIN 2.7 g/dL (3.5-5.0); CALCIUM 7.9 mg/dL (8.4-10.2)
[2018-09-06] MEDS: Insulin Lispro (humaLOG) 100 Units/ml Inj SC SCH ×4 (06:40→22:00)
[2018-09-06] MEDS: Fluconazole IV 100mg/50 ml NS 50 ML IVPB SCH (09:04)
[2018-09-06] MEDS: Insulin Detemir 100 Units/ml Inj SC SCH (09:05)
[2018-09-06] MEDS: Linezolid 600 mg in D5W 300 ml 600 MG/300 ML BAG IVPB SCH ×2 (09:06→20:12)
[2018-09-06] MEDS: Proshield Plus GEL TOP SCH ×3 (09:08→16:22)
[2018-09-06] MEDS: Enoxaparin 80 mg Syringe SC SCH (09:09)
[2018-09-06] MEDS: Pantoprazole 40 mg Susp UD NG SCH (09:17)
--- NOTE | 2018-09-06 10:24 | RAD ---
Date of service: 09/06/2018 HISTORY: vented COMPARISON: 09/05/2018 FINDINGS: Endotracheal tube terminates at the kevon. The nasogastric tube terminates in the stomach. The left PICC line terminates in the SVC. LUNGS: There are low lung volumes and confluent airspace disease in the perihilar regions and lower lobes. PLEURA: Small effusions. No pneumothorax CARDIOVASCULAR: Persistent mild cardiomegaly and prominent central vasculature. Atherosclerotic aortic arch calcifications are present. OSSEOUS STRUCTURES: Within normal limits for the patient's age. VISUALIZED UPPER ABDOMEN: Normal. OTHER FINDINGS: None. IMPRESSION: Little interval change in presumable congestive heart failure with perihilar pulmonary edema.
--- NOTE | 2018-09-06 11:31 | CP.PCM.PN ---
Subjective - Date & Time of Evaluation Date of Evaluation: 09/06/18 Time of Evaluation: 11:30 - Subjective Subjective: Patient remain intubated Vital signs noted Urine output noted Kidney function improving electrolytes are stable and improving Objective - Vital Signs/Intake and Output Vital Signs (last 24 hours): Temp Pulse Resp BP Pulse Ox 98 F 64 15 146/67 98 09/06/18 07:35 09/06/18 10:00 09/06/18 10:00 09/06/18 10:00 09/06/18 10:00 Intake and Output: 09/06/18 09/06/18 06:59 18:59 Intake Total 1700 700 Output Total 1225 Balance 475 700 - Medications Medications: Current Medications Acetaminophen (Tylenol 650mg/20.3ml Solution Ud) 650 mg NG Q6 PRN PRN Reason: Temperature Last Admin: 08/25/18 01:06 Dose: 650 mg Acetaminophen (Tylenol 650mg/20.3ml Solution Ud) 650 mg PO Q6 PRN PRN Reason: Pain, Mild (1-3) Last Admin: 09/02/18 05:54 Dose: 650 mg Albuterol/Ipratropium (Duoneb 3 Mg/0.5 Mg (3 Ml) Ud) 3 ml INH RQ6 PRN PRN Reason: Shortness of Breath Last Admin: 08/31/18 22:00 Dose: 3 ml Amlodipine Besylate (Norvasc) 5 mg PO Q12 [facility] Last Admin: 09/06/18 09:09 Dose: 5 mg Aspirin (Aspirin Chewable) 81 mg NG DAILY [facility] Last Admin: 09/06/18 09:05 Dose: 81 mg Dimethicone (Proshield Plus Skin Protectant) 1 applic TOP Q8 [facility] Last Admin: 09/06/18 09:08 Dose: 1 applic Enoxaparin Sodium (Lovenox) 80 mg SC DAILY [facility]; Protocol Last Admin: 09/06/18 09:09 Dose: Not Given Hydralazine HCl (Apresoline) 100 mg PO Q8 [facility] Last Admin: 09/06/18 09:05 Dose: 100 mg Meropenem 500 mg/ Sodium (Chloride) 100 mls @ 100 mls/hr IVPB Q8 [facility]; Protocol Last Admin: 09/06/18 09:03 Dose: 100 mls/hr Linezolid (Zyvox 600mg/300ml D5w) 600 mg in 300 mls @ 300 mls/hr IVPB Q12 [facility]; Protocol Last Admin: 09/06/18 09:06 Dose: 300 mls/hr Fluconazole (Diflucan Iv 100 Mg/50 Ml Ns) 50 mls @ 50 mls/hr IVPB DAILY [facility]; Protocol Stop: 09/09/18 12:00 Last Admin: 09/06/18 09:04 Dose: 50 mls/hr Propofol (Diprivan) 1,000 mg in 100 mls @ 7.307 mls/hr IV .[id number] [facility]; Pr otocol Stop: 09/06/18 20:00 Last Titration: 09/06/18 10:54 Dose: 10 mcg/kg/min, 4.872 mls/hr Insulin Detemir (Levemir) 12 units SC DAILY [facility] Last Admin: 09/06/18 09:05 Dose: 12 unit Insulin Human Lispro (Humalog) 0 units SC ACHS [facility]; Protocol Last Admin: 09/06/18 06:40 Dose: 6 unit Meclizine HCl (Antivert) 12.5 mg PO DAILY [facility] Last Admin: 08/18/18 09:27 Dose: 12.5 mg Metformin HCl (Glucophage) 1,000 mg PO BID [facility] Last Admin: 08/16/18 09:34 Dose: Not Given Methylprednisolone (Solu-Medrol) 60 mg IV Q8H [facility] Last Admin: 09/06/18 03:43 Dose: 60 mg Nystatin (Nystop Topical Powder) 1 applic TOP TID [facility] Last Admin: 09/06/18 09:08 Dose: 1 applic Pantoprazole Sodium (Protonix Susp) 40 mg NG DAILY [facility] Last Admin: 09/06/18 09:17 Dose: 40 mg Sucralfate (Carafate Oral Susp) 1 gm PO ACHS [facility] Last Admin: 08/18/18 22:07 Dose: 1 gm - Labs Labs: 09/06/18 04:30 09/06/18 04:30 PT 13.3 Seconds (9.8-13.1) H 08/25/18 05:00 INR 1.2 08/25/18 05:00 APTT 29.9 Seconds (25.6-37.1) 08/25/18 05:00 - Constitutional Appears: No Acute Distress - Eye Exam Eye Exam: Conjunctival injection - ENT Exam ENT Exam: Mucous Membranes Moist - Neck Exam Neck Exam: absent: Lymphadenopathy - Respiratory Exam Respiratory Exam: Rhonchi. absent: Chest Wall Tenderness - Cardiovascular Exam Cardiovascular Exam: absent: Gallop, JVD, Rubs - GI/Abdominal Exam GI & Abdominal Exam: Soft, Normal Bowel Sounds - Extremities Exam Extremities Exam: Calf Tenderness - Back Exam Back Exam: absent: CVA tenderness (L), CVA tenderness (R) - Neurological Exam Neurological Exam: Altered - Skin Skin Exam: absent: Cyanosis Assessment and Plan (1) AURORA (acute kidney injury) Assessment & Plan: acute kidney injury related to multifactorial including sepsis improving Respiratory failure patient remain on respirator VRE Sepsis [place] hypernatremia,corrected 137 fever hypokalemia corrected 4.6 plan respiratory management Avoid hypotension Antibiotics as per renal doses adjustment Patient may be going for thoracocentesis today Status: Acute (2) Acute gastroenteritis Status: Resolved (3) Anginal equivalent Status: Acute
[2018-09-06] MEDS ORDERED: Lidocaine 1% Inj (20ml) ONE (13:15)
--- NOTE | 2018-09-06 13:46 | PCM.SURG1 ---
Surgeon's Initial Post Op Note - Surgeon's Notes Surgeon: Maxwell Malik MD [employer] Site Manager: NONE Type of Anesthesia: Local Pre-Operative Diagnosis: Intubated, right and left pleural effusion Operative Findings: US showed moderate right and left pleural effusion Post-Operative Diagnosis: Intubated, right and left pleural effusion Operation Performed: Right and left thoracentesis Specimen/Specimens Removed: 800 cc of fluid from right lung; 800 cc of fluid from left lung. Estimated Blood Loss: EBL {In ML}: 0 Blood Products Given: N/A Drains Used: No Drains Post-Op Condition: Poor Date of Surgery/Procedure: 09/06/18 Time of Surgery/Procedure: 13:40
--- NOTE | 2018-09-06 14:07 | CP.PCM.PN ---
Subjective - Date & Time of Evaluation Date of Evaluation: 09/06/18 Time of Evaluation: 11:10 - Subjective Subjective: F/U Respiratory failure, PNA, Pleural effusion b/l. awake, alert, follows commands, intubated Objective - Vital Signs/Intake and Output Vital Signs (last 24 hours): Temp Pulse Resp BP Pulse Ox 98 F 60 15 145/61 98 09/06/18 07:35 09/06/18 12:13 09/06/18 10:00 09/06/18 12:13 09/06/18 10:00 Intake and Output: 09/06/18 09/06/18 06:59 18:59 Intake Total 1700 700 Output Total 1225 Balance 475 700 - Medications Medications: Current Medications Acetaminophen (Tylenol 650mg/20.3ml Solution Ud) 650 mg NG Q6 PRN PRN Reason: Temperature Last Admin: 08/25/18 01:06 Dose: 650 mg Acetaminophen (Tylenol 650mg/20.3ml Solution Ud) 650 mg PO Q6 PRN PRN Reason: Pain, Mild (1-3) Last Admin: 09/02/18 05:54 Dose: 650 mg Albuterol/Ipratropium (Duoneb 3 Mg/0.5 Mg (3 Ml) Ud) 3 ml INH RQ6 PRN PRN Reason: Shortness of Breath Last Admin: 08/31/18 22:00 Dose: 3 ml Amlodipine Besylate (Norvasc) 5 mg PO Q12 [facility] Last Admin: 09/06/18 09:09 Dose: 5 mg Aspirin (Aspirin Chewable) 81 mg NG DAILY [facility] Last Admin: 09/06/18 09:05 Dose: 81 mg Dimethicone (Proshield Plus Skin Protectant) 1 applic TOP Q8 [facility] Last Admin: 09/06/18 09:08 Dose: 1 applic Enoxaparin Sodium (Lovenox) 80 mg SC DAILY [facility]; Protocol Last Admin: 09/06/18 09:09 Dose: Not Given Hydralazine HCl (Apresoline) 100 mg PO Q8 [facility] Last Admin: 09/06/18 09:05 Dose: 100 mg Meropenem 500 mg/ Sodium (Chloride) 100 mls @ 100 mls/hr IVPB Q8 [facility]; Protocol Last Admin: 09/06/18 09:03 Dose: 100 mls/hr Linezolid (Zyvox 600mg/300ml D5w) 600 mg in 300 mls @ 300 mls/hr IVPB Q12 [facility]; Protocol Last Admin: 09/06/18 09:06 Dose: 300 mls/hr Fluconazole (Diflucan Iv 100 Mg/50 Ml Ns) 50 mls @ 50 mls/hr IVPB DAILY [facility]; Protocol Stop: 09/09/18 12:00 Last Admin: 09/06/18 09:04 Dose: 50 mls/hr Propofol (Diprivan) 1,000 mg in 100 mls @ 7.307 mls/hr IV .[id number] [facility]; Protocol Stop: 09/06/18 20:00 Last Titration: 09/06/18 10:54 Dose: 10 mcg/kg/min, 4.872 mls/hr Insulin Detemir (Levemir) 12 units SC DAILY [facility] Last Admin: 09/06/18 09:05 Dose: 12 unit Insulin Human Lispro (Humalog) 0 units SC [facility]; Protocol Last Admin: 09/06/18 12:10 Dose: 4 unit Meclizine HCl (Antivert) 12.5 mg PO DAILY [facility] Last Admin: 08/18/18 09:27 Dose: 12.5 mg Metformin HCl (Glucophage) 1,000 mg PO BID [facility] Last Admin: 08/16/18 09:34 Dose: Not Given Methylprednisolone (Solu-Medrol) 60 mg IV Q8H [facility] Last Admin: 09/06/18 12:12 Dose: 60 mg Metoprolol Tartrate (Lopressor) 25 mg PO Q8 [facility] Last Admin: 09/06/18 12:13 Dose: Not Given Nystatin (Nystop Topical Powder) 1 applic TOP TID [facility] Last Admin: 09/06/18 12:15 Dose: 1 applic Pantoprazole Sodium (Protonix Susp) 40 mg NG DAILY [facility] Last Admin: 09/06/18 09:17 Dose: 40 mg Sucralfate (Carafate Oral Susp) 1 gm PO ACHS [facility] Last Admin: 08/18/18 22:07 Dose: 1 gm - Labs Labs: 09/06/18 04:30 09/06/18 04:30 PT 13.3 Seconds (9.8-13.1) H 08/25/18 05:00 INR 1.2 08/25/18 05:00 APTT 29.9 Seconds (25.6-37.1) 08/25/18 05:00 - Constitutional Appears: No Acute Distress - Head Exam Head Exam: NORMAL INSPECTION - Eye Exam Eye Exam: PERRL - ENT Exam Additional comments: Intubated, OGT - Neck Exam Neck Exam: Normal Inspection - Respiratory Exam Respiratory Exam: Decreased Breath Sounds (b/l), Rhonchi (scattered) - Cardiovascular Exam Cardiovascular Exam: REGULAR RHYTHM, Murmur (systolic) - GI/Abdominal Exam GI & Abdominal Exam: Soft. absent: Distended, Tenderness - Exam Additional comments: Jin Cath in place - Extremities Exam Additional comments: Edema U/E, L/E - Neurological Exam Neurological Exam: Awake Additional comments: Intubated, sedated, open eyes to verbal/tactile stimuli. - Skin Skin Exam: Warm Assessment and Plan (1) Acute respiratory failure Status: Resolved (2) Cardiac arrest Status: Resolved (3) Aspiration pneumonia Status: Acute (4) Pleural effusion Status: Acute (5) Atelectasis of both lungs Status: Acute (6) NSTEMI (non-ST elevated myocardial infarction) Status: Acute (7) CHF (congestive heart failure) Status: Acute (8) DVT (deep venous thrombosis) Status: Acute (9) Severe anemia Status: Resolved - Assessment and Plan (Free Text) Plan: did not tolerate trial of CPAP-PS, back on [facility] AC, for Thoracentesis today, continue SoluMedrol, Zyvox, Merren, Diflucan , DuoNeb and rest of treatment Critical care time: 31 min.
--- NOTE | 2018-09-06 14:07 | US ---
PROCEDURE: Date of procedure: 09/06/2018 Procedure: 1. Ultrasound-guided Right thoracentesis, CPT 80403 Medications: 8CC 1% Lidocaine HISTORY: Intubated, bilateral pleural effusion TECHNIQUE: Following informed consent from power of trust and estates attorney, the Patient's right and left chest were marked. Procedure time-out was called. Limb ultrasound showed a moderate left and a moderate right pleural effusion. After the patient's skin was prepped and draped in the usual sterile fashion and skin anesthetized with lidocaine, ultrasound-guided thoracentesis performed. 860 cubic centimeters of straw-colored fluid removed from the right pleural space. This was followed by removal of 800 cubic centimeters of slight yolanda color fluid from the left pleural space. A Xeroform dressing was applied. IMPRESSION: Ultrasound guided right and left thoracentesis.
--- NOTE | 2018-09-06 14:15 | RAD ---
Date of service: 09/06/2018 PROCEDURE: CHEST RADIOGRAPH, 1 VIEW HISTORY: Status post right and left thoracentesis COMPARISON: None available. FINDINGS: Endotracheal tube is unchanged. Left PICC line. LUNGS: Improved aeration of right and left lungs. PLEURA: There is no pneumothorax following right and left thoracentesis. Blunting of the right and left costophrenic margin. CARDIOVASCULAR: No aortic atherosclerotic calcification present. Normal. OSSEOUS STRUCTURES: No significant abnormalities. VISUALIZED UPPER ABDOMEN: Normal. OTHER FINDINGS: None. IMPRESSION: Improved aeration of right and left lungs following thoracentesis. There is no pneumothorax.
[2018-09-06 14:36] LABS: BODY FLUID TYPE PLEURAL/THORACENTESI
[2018-09-06 14:51] LABS: GLUCOSE,BODY FLUID 315 mg/dL (NONE ESTABLISHED)
[2018-09-06 14:52] LABS: TOTAL PROTEIN,BODY FLUID < 2.0 g/dL (NONE ESTABLISHED)
--- NOTE | 2018-09-06 15:15 | CP.PCM.PN ---
Subjective - Date & Time of Evaluation Date of Evaluation: 09/06/18 Time of Evaluation: 15:05 - Subjective Subjective: Seen and examined at the bed side. S/P B/L Thoracentesis draining 1600cc by IR. Patient appears better. No fever. Continue to be Intubated but follows command. Objective - Vital Signs/Intake and Output Vital Signs (last 24 hours): Temp Pulse Resp BP Pulse Ox 98.2 F 60 14 140/61 100 09/06/18 12:00 09/06/18 14:00 09/06/18 14:00 09/06/18 14:00 09/06/18 14:00 Intake and Output: 09/06/18 09/06/18 06:59 18:59 Intake Total 1700 700 Output Total 1225 Balance 475 700 - Medications Medications: Current Medications Acetaminophen (Tylenol 650mg/20.3ml Solution Ud) 650 mg NG Q6 PRN PRN Reason: Temperature Last Admin: 08/25/18 01:06 Dose: 650 mg Acetaminophen (Tylenol 650mg/20.3ml Solution Ud) 650 mg PO Q6 PRN PRN Reason: Pain, Mild (1-3) Last Admin: 09/02/18 05:54 Dose: 650 mg Albuterol/Ipratropium (Duoneb 3 Mg/0.5 Mg (3 Ml) Ud) 3 ml INH RQ6 PRN PRN Reason: Shortness of Breath Last Admin: 08/31/18 22:00 Dose: 3 ml Amlodipine Besylate (Norvasc) 5 mg PO Q12 [facility] Last Admin: 09/06/18 09:09 Dose: 5 mg Aspirin (Aspirin Chewable) 81 mg NG DAILY [facility] Last Admin: 09/06/18 09:05 Dose: 81 mg Dimethicone (Proshield Plus Skin Protectant) 1 applic TOP Q8 [facility] Last Admin: 09/06/18 09:08 Dose: 1 applic Enoxaparin Sodium (Lovenox) 80 mg SC DAILY [facility]; Protocol Last Admin: 09/06/18 09:09 Dose: Not Given Hydralazine HCl (Apresoline) 100 mg PO Q8 [facility] Last Admin: 09/06/18 09:05 Dose: 100 mg Meropenem 500 mg/ Sodium (Chloride) 100 mls @ 100 mls/hr IVPB Q8 [facility]; Protocol Last Admin: 09/06/18 09:03 Dose: 100 mls/hr Linezolid (Zyvox 600mg/300ml D5w) 600 mg in 300 mls @ 300 mls/hr IVPB Q12 [facility]; Protocol Last Admin: 09/06/18 09:06 Dose: 300 mls/hr Fluconazole (Diflucan Iv 100 Mg/50 Ml Ns) 50 mls @ 50 mls/hr IVPB DAILY [facility]; Protocol Stop: 09/09/18 12:00 Last Admin: 09/06/18 09:04 Dose: 50 mls/hr Propofol (Diprivan) 1,000 mg in 100 mls @ 7.307 mls/hr IV .[id number] [facility]; Protocol Stop: 09/06/18 20:00 Last Titration: 09/06/18 10:54 Dose: 10 mcg/kg/min, 4.872 mls/hr Insulin Detemir (Levemir) 12 units SC DAILY [facility] Last Admin: 09/06/18 09:05 Dose: 12 unit Insulin Human Lispro (Humalog) 0 units SC [facility]; Protocol Last Admin: 09/06/18 12:10 Dose: 4 unit Meclizine HCl (Antivert) 12.5 mg PO DAILY [facility] Last Admin: 08/18/18 09:27 Dose: 12.5 mg Metformin HCl (Glucophage) 1,000 mg PO BID [facility] Last Admin: 08/16/18 09:34 Dose: Not Given Methylprednisolone (Solu-Medrol) 60 mg IV Q8H [facility] Last Admin: 09/06/18 12:12 Dose: 60 mg Metoprolol Tartrate (Lopressor) 25 mg PO Q8 [facility] Last Admin: 09/06/18 12:13 Dose: Not Given Nystatin (Nystop Topical Powder) 1 applic TOP TID [facility] Last Admin: 09/06/18 12:15 Dose: 1 applic Pantoprazole Sodium (Protonix Susp) 40 mg NG DAILY [facility] Last Admin: 09/06/18 09:17 Dose: 40 mg Sucralfate (Carafate Oral Susp) 1 gm PO [facility] Last Admin: 08/18/18 22:07 Dose: 1 gm - Labs Labs: 09/06/18 04:30 09/06/18 04:30 PT 13.3 Seconds (9.8-13.1) H 08/25/18 05:00 INR 1.2 08/25/18 05:00 APTT 29.9 Seconds (25.6-37.1) 08/25/18 05:00 - Constitutional Appears: No Acute Distress Assessment and Plan (1) Acute respiratory failure Assessment & Plan: S/P Intubation Status: Acute (2) Hypertensive urgency Status: Resolved (3) DVT (deep venous thrombosis) Status: Acute (4) Cardiac arrest Status: Acute (5) AURORA (acute kidney injury) Status: Acute (6) NSTEMI (non-ST elevated myocardial infarction) Status: Acute (7) Type 2 diabetes mellitus with hyperglycemia Status: Chronic (8) Acute gastroenteritis Status: Resolved (9) Abdominal pain in female Status: Resolved (10) Gallbladder disease Status: Acute (11) Severe anemia Status: Acute (12) Aspiration pneumonia Status: Acute - Assessment and Plan (Free Text) Plan: Improved since yesterday Continue current care Attempt to Wean from MV.
--- NOTE | 2018-09-06 18:50 | PN ---
DATE: 09/06/2018 CRITICAL CARE PROGRESS NOTE LOCATION: The patient in ICU, bed #427. TIME SPENT: 35 minutes. SUBJECTIVE: The patient is seen and evaluated at the bedside. Past medical, surgical, family, social history noted. Clinical course since admission reviewed. HISTORY OF PRESENT ILLNESS: A 73-year-old female admitted to ICU status post resuscitation from Code Blue/cardiac arrest. The patient's video assisted EEG showed no seizure activity. Extubated on 08/30/2018, failed extubation, re-intubated on 09/01/2018, overnight on AC/PRVC rate of 10, set tidal volume 400, PEEP of 5, FiO2 40%, observed rate 15, observed tidal volume 380, minute ventilation 5.9, oxygen saturation 95%, peak airway pressure 28, end tidal CO2 12, sedated on Diprivan drip. PHYSICAL EXAMINATION: GENERAL: Alert, awake, eyes open, not meaningful interaction; however, seems to respond by shaking head. VITAL SIGNS: Temperature 98, heart rate 64 to 81 regular, blood pressure 146 to 180 over 67 to 107, intake 3250, output 2725, positive balance 525. CURRENT MEDICATIONS: Tylenol 650 mg every 6 hours p.r.n., DuoNeb 3 mL via nebulizer every 6 hours, Norvasc 5 mg p.o. every 12 hours, aspirin 81 mg daily, Proshield Plus skin protectant 1 application topically every 8 hours, Lovenox 80 mg subcu daily, fluconazole 100 mg IV daily, hydralazine 100 mg p.o. every 8 hours, Levemir 12 units subcu daily, Accu-Chek with regular insulin coverage, Zyvox 600 mg IV every 12 hours, Antivert 12.5 mg p.o. daily, meropenem 500 mg IV every 8 hours, Glucophage 1000 mg p.o. twice daily, Solu-Medrol 60 mg IV every 8 hours, Lopressor 25 mg p.o. every 8 hours, nystatin powder 1 application topically three times daily, Protonix supposed to be 40 mg daily, Diprivan drip to maintain comfort on the ventilator, Carafate 1 g before meals and at bedtime. LABORATORY DATA: WBC 9.1, hemoglobin 10.7, hematocrit 32.1. SMA-7: Sodium 137, potassium 4.6, chloride 104, CO2 is 24, blood urea nitrogen 56, creatinine 1.4, random glucose 369. Chest x-ray from this morning little interval change in pulmonary congestion, bilateral pleural effusion with atelectasis. MICROBIOLOGY: Urine culture positive for yeast. Sputum culture for yeast. Blood culture positive for VRE faecium. IMPRESSION: 1. Neurologic: Sedated on Diprivan drip, but wakeful. Eyes open, not meaningfully interactive; however, appears nodding or shaking her head. 2. Cardiac: Status post nonST elevation myocardial infarction. Echocardiogram showed normal left ventricular function, still with bilateral pleural effusion and pulmonary vascular congestion, scheduled for thoracentesis today as recommended by cardiology consult. 3. Pulmonary: Hypoxic respiratory failure, failed extubation, on 08/30/2018. Continue to wean as tolerated after paracentesis. We will attempt spontaneous breathing trial after the thoracentesis as tolerated. Reduce DuoNeb 3 mL INH every 8 hours p.r.n. Continue Solu-Medrol as recommended by Cardiology consult. 4. Renal: Acute renal failure. BUN and creatinine trending down. 5. Endocrine: Diabetes mellitus type 2 on insulin. Maintain blood sugar below 180 mg. Hyperglycemia secondary to steroid and due to the systemic inflammatory response. Hypocalcemia corrected hypoalbuminemia is within normal limits. 6. Infectious Disease: Vancomycin-resistant Enterococcus urinary tract infection as possible aspiration pneumonia. PLAN: Continue current antibiotic. Keep head of bed 30 degree up, Jin in place for adequate intake and output. Deep venous thrombosis prophylaxis. Continue sucralfate and Protonix for gastrointestinal prophylaxis. Prognosis remains guarded status post CPR x2, possible anoxic injury to the brain, status post video assisted EEG showed no seizure activity. Mandeep Dixon MD
[2018-09-07] MEDS: Meropenem 500 MG in Sodium Chloride 0.9% 100 ML IVPB SCH ×2 (00:18→08:18)
[2018-09-07] MEDS: Proshield Plus GEL TOP SCH ×3 (01:00→16:29)
[2018-09-07 04:26] LABS: ABG ALLEN TEST YES; ARTERIAL BLOOD GAS HCO3 26.2 mmol/L (21-28); ARTERIAL BLOOD GAS HEMOGLOBIN 10.6 g/dL (11.7-17.4); ARTERIAL BLOOD GAS O2 CAPACITY 14.7 mL/dL (16-24); ARTERIAL BLOOD GAS O2 CONTENT 14.5 ML/dL (15-23); ARTERIAL BLOOD GAS O2 SAT 98.9 % (95-98); ARTERIAL BLOOD GAS PCO2 37 mm/Hg (35-45); ARTERIAL BLOOD GAS PH 7.45 (7.35-7.45); ARTERIAL BLOOD GAS PO2 90 mm/Hg (80-100); ARTERIAL BLOOD GAS TCO2 26.8 mmol/L (22-28)
[2018-09-07 05:49] LABS: HEMOGLOBIN 10.5 g/dL (12.0-16.0); MEAN CELL VOLUME 85.9 fl (81.0-99.0); MEAN CORPUSCULAR HGB CONC 32.6 g/dL (33.0-37.0); RBC 3.74 Mil/uL (3.80-5.20); WHITE BLOOD COUNT 15.9 K/uL (4.8-10.8)
[2018-09-07 06:01] LABS: CALCIUM 8.3 mg/dL (8.4-10.2)
[2018-09-07] MEDS: Insulin Lispro (humaLOG) 100 Units/ml Inj SC SCH ×4 (06:31→21:57)
[2018-09-07] MEDS: Insulin Detemir 100 Units/ml Inj SC SCH (08:16)
[2018-09-07] MEDS: Enoxaparin 80 mg Syringe SC SCH (08:17)
[2018-09-07] MEDS: Propofol 10 mg/ml 1,000 MG/100 ML VIAL IV SCH (08:26)
[2018-09-07] MEDS: Pantoprazole 40 mg Susp UD NG SCH (08:31)
[2018-09-07] MEDS: Fluconazole IV 100mg/50 ml NS 50 ML IVPB SCH (08:56)
[2018-09-07] MEDS: Linezolid 600 mg in D5W 300 ml 600 MG/300 ML BAG IVPB SCH (09:22)
[2018-09-07 09:39] LABS: BF GROSS APPEARANCE CLEAR (CLEAR); BODY FLUID MONO/MACROPHAGE 44 % (0-0); BODY FLUID TOTAL COUNT 100 (0-0)
--- NOTE | 2018-09-07 10:36 | CP.CCUPN ---
<UmanaSouleymanemike - Last Filed: 09/07/18 11:02> CCU Subjective - Physician Review Subjective (Free Text): This is 73 y/o F admitted to ICU s/p resuscitation from Code Blue/cardiac arrest and intubated. Patient was seen and examined this morning at bedside, s/p re- intubation on 09/01: may try to wean her off today, pt is alert and awake, follows simple commands. B/l thoracentesis on 09/05. Good UO, positive balance. VS: Afebrile, 138/59, HR 70, Intubated and Mechanically ventilated: AC /02/03 PE: HEENT: no icterus, no gaze preference, Pupils 3 mm and reactive NECK: No JVD visible, supple, carotids equal upstroke bilat/no bruit CHEST: decreased BS at the bases, + rales R>L HEART: regular, distant, S1-S2, no rubs ABD: soft and nontender, no tympany, no guarding, no organomegaly, BS +. EXT: mildly swollen Extremities, no calf tenderness or palpable cords, distal pulses intact and symmetrical, left PICC NEURO: Intubated and mechanical ventilated, alert and awake SKIN: warm and dry, mottled skin lower extremities LABS: WBC: 15.9, H/H: 10.5/32.2 Plt 362 CMP: Significant BUN/Cr 58/1.3 from 32/1.4 Imaging: -CT Head (08/27/18): Normal CT of the Head. -CT Head (08/23/18): Interval acute subacute infarct left [employer] distribution. No definite hemorrhage. Local mass effect identified without global mass effect appreciable. Follow-up CT or MRI advised. -CT Head (08/13/18): Age-appropriate age related neuro degenerative findings without acute intracranial changes at this time. -ECHO w/ Bubble: EF 60-65%; No ASD or PFO noted. - B/l thoracentesis on 09/05: 800cc from each side IMPRESSION/MAJOR PROBLEMS: S/p Cardiac Arrest, Acute resp failure Pneumonia, Aspiration Vs VAP Pulmonary effusion Acute/Subacute NSTEMI VRE Bacteremia/Sepsis, Coag neg Staph AURORA, multifactorial GI symptoms/GB / Biliary Tract disease DVT Anemia CVA DM-II HTN Hypokalemia PLAN: - Re-intubated on 09/01 due to hypoxia and lethargy: wean her off today. Pulmonary consult appreciated: c/w Abx - cardiac recommendations appreciated - Stable Renal function, c/w Nephro recommendations, treating patient for DVT/NSTEMI - Staph coag neg Bacteremia/ VRE, C/w Lisa and Linezolid, repeat Bcx no growth, Fluconazole added for Yeast in Urine and sputum (change hughes today) - S/p VEEG, CT: no acute changes, MRI as per neuro - Stable H/H, S/p 2U Transfusion on 09/02 - B/l thoracentesis on 09/05: 800cc from each side: f/u fluid analysis - C/w Lovenox 80mg SC daily, Aspirin 81 - C/w Metoprolol 50 Q8H /Norvasc 5mg BID/Hydralazine 100 Q8H - C/w Insulin Leve 12 U SC daily and Lispro - C/w Protonix Case discussed with Dr. Melendez CCU Objective - Vital Signs / Intake & Output Vital Signs (Last 4 hours): Vital Signs Temp Pulse Resp BP Pulse Ox 09/07/18 10:00 70 15 138/59 L 100 09/07/18 08:31 98 H 150/74 09/07/18 08:30 98 H 150/74 09/07/18 08:25 98 H 150/74 09/07/18 08:00 99.8 F H 98 H 14 150/74 100 Intake and Output (Last 8hrs): Intake & Output 09/06/18 09/07/18 09/07/18 22:59 06:59 14:59 Intake Total 962 936 866 Output Total 1100 1100 300 Balance -138 -164 566 Weight 176 lb 3.2 oz Intake: IV 12 36 106 Intake, Piggyback 400 100 450 Tube Feeding 150 400 80 Free Water Flush 400 400 230 Output: Urine 900 1100 300 Urethral (Hughes) 900 1100 300 Stool 200 Other: # Bowel Movements 300 - Physical Exam Head: Positive for: Atraumatic, Normocephalic Pupils: Positive for: PERRL. Negative for: Sluggish, Non-Reactive, Pinpoint Conjunctiva: Positive for: Normal. Negative for: Injected, Icteric Mouth: Positive for: Moist Mucous Membranes Nose (External): Positive for: Atraumatic Neck: Positive for: Normal Range of Motion Respiratory/Chest: Positive for: Rhonchi Cardiovascular: Positive for: Regular Rate and Rhythm Abdomen: Positive for: Normal Bowel Sounds. Negative for: Tenderness, Distention, Peritoneal Signs Upper Extremity: Positive for: Normal Inspection, NORMAL PULSES, Capillary Refill < 2s. Negative for: Cyanosis, Edema Lower Extremity: Positive for: Normal Inspection. Negative for: Edema, CALF TENDERNESS Neurological: Positive for: Other (on ventilator, opens eyes to verbal stimuli). Negative for: GCS=15, CN II-XII Intact, Speech Normal, Motor Func Grossly Intact, Normal Sensory Function, Normal Cerebellar Funct, Norm Deep Tendon Reflexes, Gait Normal, Memory Normal, Normal 2Pt Descrimination Psychiatric: Negative for: Alert, Oriented x 3 - Medications Active Medications: Active Medications Generic Name Dose Route Start Last Admin Trade Name Freq PRN Reason Stop Dose Admin Acetaminophen 650 mg 08/24/18 10:29 08/25/18 01:06 Tylenol 650mg/20.3ml Solution Ud NG 650 mg Q6 PRN Administration Temperature Acetaminophen 650 mg 08/31/18 19:57 09/02/18 05:54 Tylenol 650mg/20.3ml Solution Ud PO 650 mg Q6 PRN Administration Pain, Mild (1-3) Albuterol/Ipratropium 3 ml 08/31/18 14:34 08/31/18 22:00 Duoneb 3 Mg/0.5 Mg (3 Ml) Ud INH 3 ml RQ6 PRN Administration Shortness of Breath Amlodipine Besylate 5 mg 08/22/18 21:00 09/07/18 08:31 Norvasc PO 5 mg Q12 CARMEN Administration Aspirin 81 mg 09/06/18 09:00 09/07/18 08:25 Aspirin Chewable NG 81 mg DAILY CARMEN Administration Dimethicone 1 applic 09/05/18 17:00 09/07/18 08:19 Proshield Plus Skin Protectant TOP 1 applic Q8 CARMEN Administration Enoxaparin Sodium 80 mg 09/05/18 21:00 09/07/18 08:17 Lovenox SC 80 mg DAILY CARMEN Administration Protocol Hydralazine HCl 100 mg 08/31/18 11:00 09/07/18 08:25 Apresoline PO 100 mg Q8 CARMEN Administration Meropenem 500 mg/ Sodium 100 mls @ 100 mls/hr 08/24/18 12:30 09/07/18 08:18 Chloride IVPB 100 mls/hr Q8 CARMEN Administration Protocol Linezolid 600 mg in 300 mls @ 300 mls/hr 08/27/18 13:35 09/07/18 09:22 Zyvox 600mg/300ml D5w IVPB 300 mls/hr Q12 CARMEN Administration Protocol Fluconazole 50 mls @ 50 mls/hr 09/03/18 18:00 09/07/18 08:56 Diflucan Iv 100 Mg/50 Ml Ns IVPB 09/09/18 12:00 50 mls/hr DAILY CARMEN Administration Protocol Insulin Detemir 12 units 08/26/18 14:00 09/07/18 08:16 Levemir SC 12 unit DAILY CARMEN Administration Insulin Human Lispro 0 units 09/05/18 20:00 09/07/18 06:31 Humalog SC 6 unit ACHS CARMEN Administration Protocol Meclizine HCl 12.5 mg 08/13/18 09:00 08/18/18 09:27 Antivert PO 12.5 mg DAILY CARMEN Administration Metformin HCl 1,000 mg 08/13/18 09:00 08/16/18 09:34 Glucophage PO Not Given BID [facility] Metoprolol Tartrate 25 mg 09/06/18 11:30 09/07/18 08:30 Lopressor PO 25 mg Q8 CARMEN Administration Nystatin 1 applic 09/05/18 17:00 09/07/18 08:19 Nystop Topical Powder TOP 1 applic TID CARMEN Administration Pantoprazole Sodium 40 mg 09/01/18 14:00 09/07/18 08:31 Protonix Susp NG 40 mg DAILY CARMEN Administration Sucralfate 1 gm 08/14/18 20:30 08/18/18 22:07 Carafate Oral Susp PO 1 gm ACHS CARMEN Administration - Patient Studies Lab Studies: Microbiology Studies 09/06/18 14:30 Gram Stain - Final Pleural Fluid 09/02/18 10:15 Blood Culture - Preliminary Blood-Thru Central Line NO GROWTH AFTER 4 DAYS 09/02/18 10:30 Blood Culture - Preliminary Blood-Thru Central Line NO GROWTH AFTER 4 DAYS Lab Studies 09/07/18 09/07/18 09/07/18 Range/Units 04:49 04:30 04:30 WBC 15.9 H D (4.8-10.8) K/uL RBC 3.74 L (3.80-5.20) Mil/uL Hgb 10.5 L (12.0-16.0) g/dL Hct 32.2 L (34.0-47.0) % MCV 85.9 (81.0-99.0) fl MCH 28.0 (27.0-31.0) pg MCHC 32.6 L (33.0-37.0) g/dL RDW 23.0 H (11.5-14.5) % Plt Count 362 (130-400) K/uL pCO2 (35-45) mm/Hg pO2 (80-100) mm/Hg HCO3 (21-28) mmol/L ABG pH (7.35-7.45) ABG Total CO2 (22-28) mmol/L ABG O2 Saturation (95-98) % ABG O2 Content (15-23) ML/dL ABG Base Excess (-2.0-3.0) mmol/L ABG Hemoglobin (11.7-17.4) g/dL ABG Carboxyhemoglobin (0.5-1.5) % POC ABG HHb (Measured) (0.0-5.0) % ABG Methemoglobin (0.0-3.0) % ABG O2 Capacity (16-24) mL/dL Masoud Test A-a O2 Difference mm/Hg Hgb O2 Saturation (95.0-98.0) % Vent Mode Mechanical Rate FiO2 % Tidal Volume PEEP Sodium 139 (132-148) mmol/l Potassium 4.1 (3.6-5.0) MMOL/L Chloride 103 (98-107) mmol/L Carbon Dioxide 25 (22-30) mmol/L Anion Gap 15 (10-20) BUN 58 H (7-17) mg/dl Creatinine 1.3 H (0.7-1.2) mg/dl Est GFR ( Amer) 48 Est GFR (Non-Af Amer) 40 POC Glucose (mg/dL) 316 H (65-110) mg/dL Random Glucose 375 H (65-105) mg/dL Calcium 8.3 L (8.4-10.2) mg/dL Fluid Source Fluid Appearance (CLEAR) Fluid WBC (0.0-300.0) /mm3 Fluid RBC (0.0-0.0) /mm3 Fluid Tot Cell Count (0-0) Fluid Neutrophils (0-0) % Fluid Lymphocytes (0-0) % Fld Monocyte/Macrophag (0-0) % Fluid Glucose (NONE ESTABLISHED) mg/dL Fluid Total Protein (NONE ESTABLISHED) g/dL Fluid LDH (NONE ESTABLISHED) IU Fluid Comment 09/07/18 09/06/18 09/06/18 Range/Units 04:20 21:14 15:48 WBC (4.8-10.8) K/uL RBC (3.80-5.20) Mil/uL Hgb (12.0-16.0) g/dL Hct (34.0-47.0) % MCV (81.0-99.0) fl MCH (27.0-31.0) pg MCHC (33.0-37.0) g/dL RDW (11.5-14.5) % Plt Count (130-400) K/uL pCO2 37 (35-45) mm/Hg pO2 90 (80-100) mm/Hg HCO3 26.2 (21-28) mmol/L ABG pH 7.45 (7.35-7.45) ABG Total CO2 26.8 (22-28) mmol/L ABG O2 Saturation 98.9 H (95-98) % ABG O2 Content 14.5 L (15-23) ML/dL ABG Base Excess 1.7 (-2.0-3.0) mmol/L ABG Hemoglobin 10.6 L (11.7-17.4) g/dL ABG Carboxyhemoglobin 1.4 (0.5-1.5) % POC ABG HHb (Measured) 1.1 (0.0-5.0) % ABG Methemoglobin 1.2 (0.0-3.0) % ABG O2 Capacity 14.7 L (16-24) mL/dL Masoud Test Yes A-a O2 Difference 149.0 mm/Hg Hgb O2 Saturation 96.3 (95.0-98.0) % Vent Mode Prvc ac Mechanical Rate 10 FiO2 40.0 % Tidal Volume 400 PEEP 5 Sodium (132-148) mmol/l Potassium (3.6-5.0) MMOL/L Chloride (98-107) mmol/L Carbon Dioxide (22-30) mmol/L Anion Gap (10-20) BUN (7-17) mg/dl Creatinine (0.7-1.2) mg/dl Est GFR ( Amer) Est GFR (Non-Af Amer) POC Glucose (mg/dL) 331 H 306 H (65-110) mg/dL Random Glucose (65-105) mg/dL Calcium (8.4-10.2) mg/dL Fluid Source Fluid Appearance (CLEAR) Fluid WBC (0.0-300.0) /mm3 Fluid RBC (0.0-0.0) /mm3 Fluid Tot Cell Count (0-0) Fluid Neutrophils (0-0) % Fluid Lymphocytes (0-0) % Fld Monocyte/Macrophag (0-0) % Fluid Glucose (NONE ESTABLISHED) mg/dL Fluid Total Protein (NONE ESTABLISHED) g/dL Fluid LDH (NONE ESTABLISHED) IU Fluid Comment 09/06/18 09/06/18 09/06/18 Range/Units 14:30 14:30 11:09 WBC (4.8-10.8) K/uL RBC (3.80-5.20) Mil/uL Hgb (12.0-16.0) g/dL Hct (34.0-47.0) % MCV (81.0-99.0) fl MCH (27.0-31.0) pg MCHC (33.0-37.0) g/dL RDW (11.5-14.5) % Plt Count (130-400) K/uL pCO2 (35-45) mm/Hg pO2 (80-100) mm/Hg HCO3 (21-28) mmol/L ABG pH (7.35-7.45) ABG Total CO2 (22-28) mmol/L ABG O2 Saturation (95-98) % ABG O2 Content (15-23) ML/dL ABG Base Excess (-2.0-3.0) mmol/L ABG Hemoglobin (11.7-17.4) g/dL ABG Carboxyhemoglobin (0.5-1.5) % POC ABG HHb (Measured) (0.0-5.0) % ABG Methemoglobin (0.0-3.0) % ABG O2 Capacity (16-24) mL/dL Masoud Test A-a O2 Difference mm/Hg Hgb O2 Saturation (95.0-98.0) % Vent Mode Mechanical Rate FiO2 % Tidal Volume PEEP Sodium (132-148) mmol/l Potassium (3.6-5.0) MMOL/L Chloride (98-107) mmol/L Carbon Dioxide (22-30) mmol/L Anion Gap (10-20) BUN (7-17) mg/dl Creatinine (0.7-1.2) mg/dl Est GFR ( Amer) Est GFR (Non-Af Amer) POC Glucose (mg/dL) 290 H (65-110) mg/dL Random Glucose (65-105) mg/dL Calcium (8.4-10.2) mg/dL Fluid Source Pleural/thoracentesi Fluid Appearance Clear (CLEAR) Fluid WBC 53.0 (0.0-300.0) /mm3 Fluid RBC 590.0 H (0.0-0.0) /mm3 Fluid Tot Cell Count 100 H (0-0) Fluid Neutrophils 34.0 H (0-0) % Fluid Lymphocytes 22.0 H (0-0) % Fld Monocyte/Macrophag 44 H (0-0) % Fluid Glucose 315 (NONE ESTABLISHED) mg/dL Fluid Total Protein < 2.0 (NONE ESTABLISHED) g/dL Fluid LDH 303 (NONE ESTABLISHED) IU Fluid Comment Clear Laboratory Results - last 24 hr 09/06/18 09/06/18 09/06/18 11:09 14:30 14:30 WBC RBC Hgb Hct MCV MCH MCHC RDW Plt Count pCO2 pO2 HCO3 ABG pH ABG Total CO2 ABG O2 Saturation ABG O2 Content ABG Base Excess ABG Hemoglobin ABG Carboxyhemoglobin POC ABG HHb (Measured) ABG Methemoglobin ABG O2 Capacity Masoud Test A-a O2 Difference Hgb O2 Saturation Vent Mode Mechanical Rate FiO2 Tidal Volume PEEP Sodium Potassium Chloride Carbon Dioxide Anion Gap BUN Creatinine Est GFR ( Amer) Est GFR (Non-Af Amer) POC Glucose (mg/dL) 290 H Random Glucose Calcium Fluid Source Pleural/thoracentesi Fluid Appearance Clear Fluid WBC 53.0 Fluid RBC 590.0 H Fluid Tot Cell Count 100 H Fluid Neutrophils 34.0 H Fluid Lymphocytes 22.0 H Fld Monocyte/Macrophag 44 H Fluid Glucose 315 Fluid Total Protein < 2.0 Fluid LDH 303 Fluid Comment Clear 09/06/18 09/06/18 09/07/18 15:48 21:14 04:20 WBC RBC Hgb Hct MCV MCH MCHC RDW Plt Count pCO2 37 pO2 90 HCO3 26.2 ABG pH 7.45 ABG Total CO2 26.8 ABG O2 Saturation 98.9 H ABG O2 Content 14.5 L ABG Base Excess 1.7 ABG Hemoglobin 10.6 L ABG Carboxyhemoglobin 1.4 POC ABG HHb (Measured) 1.1 ABG Methemoglobin 1.2 ABG O2 Capacity 14.7 L Masoud Test Yes A-a O2 Difference 149.0 Hgb O2 Saturation 96.3 Vent Mode Prvc ac Mechanical Rate 10 FiO2 40.0 Tidal Volume 400 PEEP 5 Sodium Potassium Chloride Carbon Dioxide Anion Gap BUN Creatinine Est GFR ( Amer) Est GFR (Non-Af Amer) POC Glucose (mg/dL) 306 H 331 H Random Glucose Calcium Fluid Source Fluid Appearance Fluid WBC Fluid RBC Fluid Tot Cell Count Fluid Neutrophils Fluid Lymphocytes Fld Monocyte/Macrophag Fluid Glucose Fluid Total Protein Fluid LDH Fluid Comment 09/07/18 09/07/18 09/07/18 04:30 04:30 04:49 WBC 15.9 H D RBC 3.74 L Hgb 10.5 L Hct 32.2 L MCV 85.9 MCH 28.0 MCHC 32.6 L RDW 23.0 H Plt Count 362 pCO2 pO2 HCO3 ABG pH ABG Total CO2 ABG O2 Saturation ABG O2 Content ABG Base Excess ABG Hemoglobin ABG Carboxyhemoglobin POC ABG HHb (Measured) ABG Methemoglobin ABG O2 Capacity Masoud Test A-a O2 Difference Hgb O2 Saturation Vent Mode Mechanical Rate FiO2 Tidal Volume PEEP Sodium 139 Potassium 4.1 Chloride 103 Carbon Dioxide 25 Anion Gap 15 BUN 58 H Creatinine 1.3 H Est GFR ( Amer) 48 Est GFR (Non-Af Amer) 40 POC Glucose (mg/dL) 316 H Random Glucose 375 H Calcium 8.3 L Fluid Source Fluid Appearance Fluid WBC Fluid RBC Fluid Tot Cell Count Fluid Neutrophils Fluid Lymphocytes Fld Monocyte/Macrophag Fluid Glucose Fluid Total Protein Fluid LDH Fluid Comment Fingerstick Blood Sugar Results: 316 <Morgan Melendez - Last Filed: 09/07/18 13:58> CCU Subjective - Physician Review Subjective (Free Text): Attestation: Patient seen and examined at the bedside with Resident Dr. Jud Umana; and I agree with his outline of plans and management documented above and below, reflecting my review of all applicable clinical data, and participation in the care of the patient throughout the day in ICU; today, September 07, 2018. Discussed with ID: to remain on IV Flagyl and PO Vanco. Hughes catheter to be changed and or discontinued and trial PureWick urinary collection system. Extubated again today, CXR slightly improved post bilateral Thoracentesis yesterday. Neuromental status remains intact and well.
--- NOTE | 2018-09-07 11:37 | CP.PCM.PN ---
Subjective - Date & Time of Evaluation Date of Evaluation: 09/07/18 Time of Evaluation: 11:39 - Subjective Subjective: Patient remain intubated but she appears to be awake responding Vital signs noted be stable Objective - Vital Signs/Intake and Output Vital Signs (last 24 hours): Temp Pulse Resp BP Pulse Ox 99.8 F H 70 15 150/70 100 09/07/18 08:00 09/07/18 10:00 09/07/18 10:00 09/07/18 11:20 09/07/18 10:00 Intake and Output: 09/07/18 09/07/18 06:59 18:59 Intake Total 1598 866 Output Total 1100 300 Balance 498 566 - Medications Medications: Current Medications Acetaminophen (Tylenol 650mg/20.3ml Solution Ud) 650 mg NG Q6 PRN PRN Reason: Temperature Last Admin: 08/25/18 01:06 Dose: 650 mg Acetaminophen (Tylenol 650mg/20.3ml Solution Ud) 650 mg PO Q6 PRN PRN Reason: Pain, Mild (1-3) Last Admin: 09/02/18 05:54 Dose: 650 mg Albuterol/Ipratropium (Duoneb 3 Mg/0.5 Mg (3 Ml) Ud) 3 ml INH RQ6 PRN PRN Reason: Shortness of Breath Last Admin: 08/31/18 22:00 Dose: 3 ml Amlodipine Besylate (Norvasc) 5 mg PO Q12 CARMEN Last Admin: 09/07/18 08:31 Dose: 5 mg Aspirin (Aspirin Chewable) 81 mg NG DAILY CARMEN Last Admin: 09/07/18 08:25 Dose: 81 mg Dimethicone (Proshield Plus Skin Protectant) 1 applic TOP Q8 CARMEN Last Admin: 09/07/18 08:19 Dose: 1 applic Enoxaparin Sodium (Lovenox) 80 mg SC DAILY CARMEN; Protocol Last Admin: 09/07/18 08:17 Dose: 80 mg Hydralazine HCl (Apresoline) 100 mg PO Q8 CARMEN Last Admin: 09/07/18 08:25 Dose: 100 mg Meropenem 500 mg/ Sodium (Chloride) 100 mls @ 100 mls/hr IVPB Q8 CARMEN; Protocol Last Admin: 09/07/18 08:18 Dose: 100 mls/hr Linezolid (Zyvox 600mg/300ml D5w) 600 mg in 300 mls @ 300 mls/hr IVPB Q12 [facility]; Protocol Last Admin: 09/07/18 09:22 Dose: 300 mls/hr Fluconazole (Diflucan Iv 100 Mg/50 Ml Ns) 50 mls @ 50 mls/hr IVPB DAILY [facility]; Protocol Stop: 09/09/18 12:00 Last Admin: 09/07/18 08:56 Dose: 50 mls/hr Insulin Detemir (Levemir) 12 units SC DAILY [facility] Last Admin: 09/07/18 08:16 Dose: 12 unit Insulin Human Lispro (Humalog) 0 units SC ACHS [facility]; Protocol Last Admin: 09/07/18 06:31 Dose: 6 unit Meclizine HCl (Antivert) 12.5 mg PO DAILY [facility] Last Admin: 08/18/18 09:27 Dose: 12.5 mg Metformin HCl (Glucophage) 1,000 mg PO BID [facility] Last Admin: 08/16/18 09:34 Dose: Not Given Metoprolol Tartrate (Lopressor) 25 mg PO Q8 [facility] Last Admin: 09/07/18 08:30 Dose: 25 mg Nystatin (Nystop Topical Powder) 1 applic TOP TID [facility] Last Admin: 09/07/18 08:19 Dose: 1 applic Pantoprazole Sodium (Protonix Susp) 40 mg NG DAILY [facility] Last Admin: 09/07/18 08:31 Dose: 40 mg Sucralfate (Carafate Oral Susp) 1 gm PO ACHS [facility] Last Admin: 08/18/18 22:07 Dose: 1 gm - Labs Labs: 09/07/18 04:30 09/07/18 04:30 PT 13.3 Seconds (9.8-13.1) H 08/25/18 05:00 INR 1.2 08/25/18 05:00 APTT 29.9 Seconds (25.6-37.1) 08/25/18 05:00 - Constitutional Appears: No Acute Distress - Eye Exam Eye Exam: Conjunctival injection - ENT Exam ENT Exam: Mucous Membranes Moist - Neck Exam Neck Exam: absent: Lymphadenopathy - Cardiovascular Exam Cardiovascular Exam: absent: Gallop, JVD, Rubs - GI/Abdominal Exam GI & Abdominal Exam: Soft, Normal Bowel Sounds - Extremities Exam Extremities Exam: absent: Calf Tenderness - Back Exam Back Exam: absent: CVA tenderness (L), CVA tenderness (R) - Neurological Exam Neurological Exam: Awake - Skin Skin Exam: absent: Cyanosis Assessment and Plan (1) AURORA (acute kidney injury) Assessment & Plan: acute kidney injury related to multifactorial including sepsis improving Respiratory failure patient remain on respirator Sepsis AL hypernatremia,corrected 139 hypokalemia corrected 4.1 plan respiratory management Avoid hypotension Antibiotics as per renal doses adjustment Status bilateral thoracocentesis on September 06, removal 800 cc from each side Status: Acute (2) Acute gastroenteritis Status: Resolved (3) Anginal equivalent Status: Acute
--- NOTE | 2018-09-07 11:38 | RAD ---
Date of service: 09/07/2018 HISTORY: Intubated. Relevant interventional procedure(s): 09/06/2018 right thoracentesis with retrieval of 0.8 L of fluid from the right pleural space COMPARISON: Multiple serial examinations preceding the most recent study: FINDINGS: LUNGS: Improved aeration of the right lung following thoracentesis. Multifocal airspace disease is progressive. PLEURA: No appreciable/residual right pleural effusion. No visible pneumothorax. CARDIOVASCULAR: No atherosclerotic calcification present Normal. OSSEOUS STRUCTURES: No significant abnormalities. VISUALIZED UPPER ABDOMEN: Normal. OTHER FINDINGS: Stable, satisfactory position ventilatory, vascular and nasogastric apparatus. IMPRESSION: Worsening multifocal airspace disease/pulmonary edema. Improved aeration of the right lung following thoracentesis. Stable position of support apparatus.
--- NOTE | 2018-09-07 13:07 | CP.PCM.PN ---
Subjective - Date & Time of Evaluation Date of Evaluation: 09/07/18 Time of Evaluation: 13:07 - Subjective Subjective: pt extubated. breathing comfortably. no jvd. hr 90-100. denies cp or sob. bp 130/90 Objective - Vital Signs/Intake and Output Vital Signs (last 24 hours): Temp Pulse Resp BP Pulse Ox 98.1 F 90 15 154/86 H 98 09/07/18 12:00 09/07/18 12:00 09/07/18 12:00 09/07/18 12:00 09/07/18 12:00 Intake and Output: 09/07/18 09/07/18 06:59 18:59 Intake Total 1598 870 Output Total 1100 1100 Balance 498 -230 - Medications Medications: Current Medications Acetaminophen (Tylenol 650mg/20.3ml Solution Ud) 650 mg NG Q6 PRN PRN Reason: Temperature Last Admin: 08/25/18 01:06 Dose: 650 mg Acetaminophen (Tylenol 650mg/20.3ml Solution Ud) 650 mg PO Q6 PRN PRN Reason: Pain, Mild (1-3) Last Admin: 09/02/18 05:54 Dose: 650 mg Albuterol/Ipratropium (Duoneb 3 Mg/0.5 Mg (3 Ml) Ud) 3 ml INH RQ6 PRN PRN Reason: Shortness of Breath Last Admin: 08/31/18 22:00 Dose: 3 ml Amlodipine Besylate (Norvasc) 5 mg PO Q12 [facility] Last Admin: 09/07/18 08:31 Dose: 5 mg Aspirin (Aspirin Chewable) 81 mg NG DAILY [facility] Last Admin: 09/07/18 08:25 Dose: 81 mg Dimethicone (Proshield Plus Skin Protectant) 1 applic TOP Q8 [facility] Last Admin: 09/07/18 08:19 Dose: 1 applic Enoxaparin Sodium (Lovenox) 80 mg SC DAILY [facility]; Protocol Last Admin: 09/07/18 08:17 Dose: 80 mg Hydralazine HCl (Apresoline) 100 mg PO Q8 [facility] Last Admin: 09/07/18 08:25 Dose: 100 mg Meropenem 500 mg/ Sodium (Chloride) 100 mls @ 100 mls/hr IVPB Q8 [facility]; Protocol Last Admin: 09/07/18 08:18 Dose: 100 mls/hr Linezolid (Zyvox 600mg/300ml D5w) 600 mg in 300 mls @ 300 mls/hr IVPB Q12 [facility]; Protocol Last Admin: 09/07/18 09:22 Dose: 300 mls/hr Fluconazole (Diflucan Iv 100 Mg/50 Ml Ns) 50 mls @ 50 mls/hr IVPB DAILY [facility]; Protocol Stop: 09/09/18 12:00 Last Admin: 09/07/18 08:56 Dose: 50 mls/hr Insulin Detemir (Levemir) 12 units SC DAILY [facility] Last Admin: 09/07/18 08:16 Dose: 12 unit Insulin Human Lispro (Humalog) 0 units SC ACHS [facility]; Protocol Last Admin: 09/07/18 11:37 Dose: 8 unit Meclizine HCl (Antivert) 12.5 mg PO DAILY [facility] Last Admin: 08/18/18 09:27 Dose: 12.5 mg Metformin HCl (Glucophage) 1,000 mg PO BID [facility] Last Admin: 08/16/18 09:34 Dose: Not Given Metoprolol Tartrate (Lopressor) 25 mg PO Q8 [facility] Last Admin: 09/07/18 08:30 Dose: 25 mg Nystatin (Nystop Topical Powder) 1 applic TOP TID [facility] Last Admin: 09/07/18 12:35 Dose: 1 applic Pantoprazole Sodium (Protonix Susp) 40 mg NG DAILY [facility] Last Admin: 09/07/18 08:31 Dose: 40 mg Sucralfate (Carafate Oral Susp) 1 gm PO ACHS [facility] Last Admin: 08/18/18 22:07 Dose: 1 gm - Labs Labs: 09/07/18 04:30 09/07/18 04:30 PT 13.3 Seconds (9.8-13.1) H 08/25/18 05:00 INR 1.2 08/25/18 05:00 APTT 29.9 Seconds (25.6-37.1) 08/25/18 05:00 - Constitutional Appears: Non-toxic - Head Exam Head Exam: ATRAUMATIC, NORMAL INSPECTION, NORMOCEPHALIC - Eye Exam Eye Exam: EOMI, Normal appearance, PERRL. absent: Conjunctival injection, Nystagmus, Periorbital swelling, Periorbital tenderness, Scleral icterus Pupil Exam: NORMAL ACCOMODATION, PERRL - ENT Exam ENT Exam: Mucous Membranes Dry, Normal Exam - Neck Exam Neck Exam: Full ROM, Normal Inspection. absent: Lymphadenopathy, Meningismus, Tenderness, Thyromegaly - Respiratory Exam Respiratory Exam: Rhonchi, NORMAL BREATHING PATTERN. absent: Accessory Muscle Use, Chest Wall Tenderness, Decreased Breath Sounds, Clear to Ausculation Bilateral, Prolonged Expiratory Phase, Rales, Wheezes, Respiratory Distress, Stridor - Cardiovascular Exam Cardiovascular Exam: Tachycardia, +S1, +S2, Murmur. absent: Bradycardia, Clicks, Diastolic murmur, Gallop, Irregular Rhythm, REGULAR RHYTHM, JVD, RRR, Rubs, +S4 - GI/Abdominal Exam GI & Abdominal Exam: Soft, Normal Bowel Sounds. absent: Bruit, Distended, Firm, Guarding, Rigid, Tenderness, Diminished Bowel Sounds, Hernia, Hyperactive Bowel Sounds, Hypoactive Bowel Sounds, Organomegaly, Pulsatile Mass, Rebound, Mass - Rectal Exam Rectal Exam: Deferred - Extremities Exam Extremities Exam: Normal Capillary Refill, Pedal Edema. absent: Calf Tenderness, Full ROM, Joint Swelling, Normal Inspection, Tenderness - Back Exam Back Exam: NORMAL INSPECTION. absent: CVA tenderness (L), CVA tenderness (R), Full ROM, muscle spasm, paraspinal tenderness, rash noted, tenderness, vertebral tenderness - Neurological Exam Neurological Exam: Alert, Awake - Psychiatric Exam Psychiatric exam: Anxious. absent: Agitated, Depressed, Flat Affect, Homicidal Ideation, Manic, Normal Affect, Normal Mood, Suicidal Ideation - Skin Skin Exam: Dry, Intact, Normal Color, Warm Assessment and Plan (1) AURORA (acute kidney injury) Status: Acute (2) Acute respiratory failure Status: Resolved (3) Mental status alteration Status: Acute (4) NSTEMI (non-ST elevated myocardial infarction) Status: Resolved (5) Abnormal EKG Status: Chronic (6) Type 2 diabetes mellitus with hyperglycemia Status: Chronic (7) Hypertension Status: Chronic (8) DVT (deep venous thrombosis) Status: Acute (9) Severe anemia Status: Acute (10) Nausea & vomiting Status: Resolved (11) Acute hypernatremia Status: Resolved - Assessment and Plan (Free Text) Plan: give lopressor 2.5mg ivp x 1 as pts hr is elevated and bp can tolerate. cont steroids. monitor in icu. recheck labs. cr improving.
--- NOTE | 2018-09-07 13:13 | CP.PCM.PN ---
Subjective - Date & Time of Evaluation Date of Evaluation: 09/07/18 Time of Evaluation: 08:00 - Subjective Subjective: extubated some [place] stools completed course for VRE and Cholecystitis / Pneumonia switch to IV Flaguyl and PO Vanco Objective - Vital Signs/Intake and Output Vital Signs (last 24 hours): Temp Pulse Resp BP Pulse Ox 98.1 F 90 15 154/86 H 98 09/07/18 12:00 09/07/18 12:00 09/07/18 12:00 09/07/18 12:00 09/07/18 12:00 Intake and Output: 09/07/18 09/07/18 06:59 18:59 Intake Total 1598 870 Output Total 1100 1100 Balance 498 -230 - Medications Medications: Current Medications Acetaminophen (Tylenol 650mg/20.3ml Solution Ud) 650 mg NG Q6 PRN PRN Reason: Temperature Last Admin: 08/25/18 01:06 Dose: 650 mg Acetaminophen (Tylenol 650mg/20.3ml Solution Ud) 650 mg PO Q6 PRN PRN Reason: Pain, Mild (1-3) Last Admin: 09/02/18 05:54 Dose: 650 mg Albuterol/Ipratropium (Duoneb 3 Mg/0.5 Mg (3 Ml) Ud) 3 ml INH RQ6 PRN PRN Reason: Shortness of Breath Last Admin: 08/31/18 22:00 Dose: 3 ml Amlodipine Besylate (Norvasc) 5 mg PO Q12 [facility] Last Admin: 09/07/18 08:31 Dose: 5 mg Aspirin (Aspirin Chewable) 81 mg NG DAILY [facility] Last Admin: 09/07/18 08:25 Dose: 81 mg Dimethicone (Proshield Plus Skin Protectant) 1 applic TOP Q8 [facility] Last Admin: 09/07/18 08:19 Dose: 1 applic Enoxaparin Sodium (Lovenox) 80 mg SC DAILY [facility]; Protocol Last Admin: 09/07/18 08:17 Dose: 80 mg Hydralazine HCl (Apresoline) 100 mg PO Q8 [facility] Last Admin: 09/07/18 08:25 Dose: 100 mg Meropenem 500 mg/ Sodium (Chloride) 100 mls @ 100 mls/hr IVPB Q8 [facility]; Protocol Last Admin: 09/07/18 08:18 Dose: 100 mls/hr Linezolid (Zyvox 600mg/300ml D5w) 600 mg in 300 mls @ 300 mls/hr IVPB Q12 [facility]; Protocol Last Admin: 09/07/18 09:22 Dose: 300 mls/hr Fluconazole (Diflucan Iv 100 Mg/50 Ml Ns) 50 mls @ 50 mls/hr IVPB DAILY [facility]; Protocol Stop: 09/09/18 12:00 Last Admin: 09/07/18 08:56 Dose: 50 mls/hr Insulin Detemir (Levemir) 12 units SC DAILY [facility] Last Admin: 09/07/18 08:16 Dose: 12 unit Insulin Human Lispro (Humalog) 0 units SC ACHS [facility]; Protocol Last Admin: 09/07/18 11:37 Dose: 8 unit Meclizine HCl (Antivert) 12.5 mg PO DAILY [facility] Last Admin: 08/18/18 09:27 Dose: 12.5 mg Metformin HCl (Glucophage) 1,000 mg PO BID [facility] Last Admin: 08/16/18 09:34 Dose: Not Given Metoprolol Tartrate (Lopressor) 25 mg PO Q8 [facility] Last Admin: 09/07/18 08:30 Dose: 25 mg Nystatin (Nystop Topical Powder) 1 applic TOP TID [facility] Last Admin: 09/07/18 12:35 Dose: 1 applic Pantoprazole Sodium (Protonix Susp) 40 mg NG DAILY [facility] Last Admin: 09/07/18 08:31 Dose: 40 mg Sucralfate (Carafate Oral Susp) 1 gm PO ACHS [facility] Last Admin: 08/18/18 22:07 Dose: 1 gm - Labs Labs: 09/07/18 04:30 09/07/18 04:30 PT 13.3 Seconds (9.8-13.1) H 08/25/18 05:00 INR 1.2 08/25/18 05:00 APTT 29.9 Seconds (25.6-37.1) 08/25/18 05:00 - Constitutional Appears: Non-toxic, Confused, Chronically Ill - Head Exam Head Exam: NORMOCEPHALIC - Eye Exam Eye Exam: absent: Scleral icterus - ENT Exam ENT Exam: Mucous Membranes Dry - Neck Exam Neck Exam: absent: Lymphadenopathy - Respiratory Exam Respiratory Exam: Decreased Breath Sounds - Cardiovascular Exam Cardiovascular Exam: REGULAR RHYTHM - GI/Abdominal Exam GI & Abdominal Exam: Distended - Rectal Exam Rectal Exam: Deferred Assessment and Plan (1) Dehydration Status: Acute (2) NSTEMI (non-ST elevated myocardial infarction) Status: Acute (3) Nausea & vomiting Status: Resolved (4) Type 2 diabetes mellitus with hyperglycemia Status: Chronic (5) Abdominal pain Status: Acute (6) Gallbladder disease Status: Acute (7) Pneumonia Status: Acute
[2018-09-07] MEDS ORDERED: Metoprolol 1 mg/ml Inj IVP ONE (13:52)
[2018-09-07] MEDS ORDERED: Insulin Regular 100 units/ml IV ONE (15:28)
--- NOTE | 2018-09-07 16:17 | CP.PCM.PN ---
Subjective - Date & Time of Evaluation Date of Evaluation: 09/07/18 Time of Evaluation: 12:10 - Subjective Subjective: F/U Respiratory Failure, S/P Extubation extubated, alert, no AD Objective - Vital Signs/Intake and Output Vital Signs (last 24 hours): Temp Pulse Resp BP Pulse Ox 98.1 F 92 H 17 158/63 H 96 09/07/18 12:00 09/07/18 14:20 09/07/18 14:00 09/07/18 14:20 09/07/18 14:00 Intake and Output: 09/07/18 09/07/18 06:59 18:59 Intake Total 1598 874 Output Total 1100 1700 Balance 498 -826 - Medications Medications: Current Medications Acetaminophen (Tylenol 650mg/20.3ml Solution Ud) 650 mg NG Q6 PRN PRN Reason: Temperature Last Admin: 08/25/18 01:06 Dose: 650 mg Acetaminophen (Tylenol 650mg/20.3ml Solution Ud) 650 mg PO Q6 PRN PRN Reason: Pain, Mild (1-3) Last Admin: 09/02/18 05:54 Dose: 650 mg Albuterol/Ipratropium (Duoneb 3 Mg/0.5 Mg (3 Ml) Ud) 3 ml INH RQ6 PRN PRN Reason: Shortness of Breath Last Admin: 08/31/18 22:00 Dose: 3 ml Amlodipine Besylate (Norvasc) 5 mg PO Q12 [facility] Last Admin: 09/07/18 08:31 Dose: 5 mg Aspirin (Aspirin Chewable) 81 mg NG DAILY [facility] Last Admin: 09/07/18 08:25 Dose: 81 mg Dimethicone (Proshield Plus Skin Protectant) 1 applic TOP Q8 [facility] Last Admin: 09/07/18 08:19 Dose: 1 applic Enoxaparin Sodium (Lovenox) 80 mg SC DAILY [facility]; Protocol Last Admin: 09/07/18 08:17 Dose: 80 mg Hydralazine HCl (Apresoline) 100 mg PO Q8 [facility] Last Admin: 09/07/18 08:25 Dose: 100 mg Fluconazole (Diflucan Iv 100 Mg/50 Ml Ns) 50 mls @ 50 mls/hr IVPB DAILY [facility]; Protocol Stop: 09/09/18 12:00 Last Admin: 09/07/18 08:56 Dose: 50 mls/hr Metronidazole (Flagyl 500mg/100ml Ns) 100 mls @ 100 mls/hr IVPB Q8 [facility]; Protocol Insulin Detemir (Levemir) 10 units SC ONE Stop: 09/07/18 22:01 Insulin Detemir (Levemir) 20 units SC DAILY [facility] Insulin Human Lispro (Humalog) 0 units SC ACHS [facility]; Protocol Last Admin: 09/07/18 11:37 Dose: 8 unit Meclizine HCl (Antivert) 12.5 mg PO DAILY [facility] Last Admin: 08/18/18 09:27 Dose: 12.5 mg Metformin HCl (Glucophage) 1,000 mg PO BID [facility] Last Admin: 08/16/18 09:34 Dose: Not Given Metoprolol Tartrate (Lopressor) 25 mg PO Q8 [facility] Last Admin: 09/07/18 08:30 Dose: 25 mg Nystatin (Nystop Topical Powder) 1 applic TOP TID [facility] Last Admin: 09/07/18 12:35 Dose: 1 applic Pantoprazole Sodium (Protonix Susp) 40 mg NG DAILY [facility] Last Admin: 09/07/18 08:31 Dose: 40 mg Sucralfate (Carafate Oral Susp) 1 gm PO ACHS [facility] Last Admin: 08/18/18 22:07 Dose: 1 gm Vancomycin HCl (Vancocin (Oral/Rectal Use)) 250 mg PO Q8 [facility]; Protocol - Labs Labs: 09/07/18 04:30 09/07/18 04:30 PT 13.3 Seconds (9.8-13.1) H 08/25/18 05:00 INR 1.2 08/25/18 05:00 APTT 29.9 Seconds (25.6-37.1) 08/25/18 05:00 - Constitutional Appears: No Acute Distress - Head Exam Head Exam: NORMAL INSPECTION - Eye Exam Eye Exam: PERRL - ENT Exam Additional comments: On Venti-mask, FIO2 40% - Neck Exam Neck Exam: Normal Inspection - Respiratory Exam Respiratory Exam: Decreased Breath Sounds (at bases) - Cardiovascular Exam Cardiovascular Exam: REGULAR RHYTHM, Murmur (systolic) - GI/Abdominal Exam GI & Abdominal Exam: Soft. absent: Distended, Tenderness - Exam Additional comments: Jin Cath - Back Exam Additional comments: edema - Neurological Exam Neurological Exam: Awake Additional comments: Responsive to verbal and tactile stimuli, follows commands. - Psychiatric Exam Additional comments: Calm - Skin Skin Exam: Warm Assessment and Plan (1) Acute respiratory failure Status: Resolved (2) Cardiac arrest Status: Resolved (3) Aspiration pneumonia Status: Acute (4) Pleural effusion Assessment & Plan: s/p B/L Thorscentesis Status: Acute (5) Atelectasis of both lungs Status: Acute (6) NSTEMI (non-ST elevated myocardial infarction) Status: Acute (7) CHF (congestive heart failure) Status: Acute (8) DVT (deep venous thrombosis) Status: Acute (9) Severe anemia Status: Resolved - Assessment and Plan (Free Text) Plan: s/p B/L Thoracentesis, 800cc B/L and extubation, continue current Respiratory Tx, Atb cooverage, swallowing eval, f/u serial CXR Critical care time: 32 min.
[2018-09-07] MEDS: metroNIDAZOLE 500mg/100ml NS 100 ML IVPB SCH (16:23)
[2018-09-07] MEDS: Vancomycin 500 mg (Oral/Rectal USE) PO SCH (16:29)
[2018-09-07] MEDS: Albuterol-Ipratrop 3 mg / 0.5 (3 ml) UD INH PRN ×2 (16:55→23:30)
[2018-09-07] MEDS ORDERED: Insulin Detemir 100 Units/ml Inj SC ONE (22:00)
[2018-09-08] MEDS: Vancomycin 500 mg (Oral/Rectal USE) PO SCH ×3 (00:03→16:52)
[2018-09-08] MEDS: metroNIDAZOLE 500mg/100ml NS 100 ML IVPB SCH ×3 (00:03→16:48)
[2018-09-08] MEDS: Proshield Plus GEL TOP SCH ×3 (00:07→16:52)
[2018-09-08] MEDS ORDERED: Metoprolol 1 mg/ml Inj IVP STA (03:55)
[2018-09-08 05:01] LABS: ABG ALLEN TEST YES; ARTERIAL BLOOD GAS HCO3 28.7 mmol/L (21-28); ARTERIAL BLOOD GAS HEMOGLOBIN 11.2 g/dL (11.7-17.4); ARTERIAL BLOOD GAS O2 CAPACITY 15.2 mL/dL (16-24); ARTERIAL BLOOD GAS O2 SAT 85.4 % (95-98); ARTERIAL BLOOD GAS PCO2 43 mm/Hg (35-45); ARTERIAL BLOOD GAS PH 7.45 (7.35-7.45); ARTERIAL BLOOD GAS PO2 46 mm/Hg (80-100); ARTERIAL BLOOD GAS TCO2 31.2 mmol/L (22-28)
[2018-09-08 05:44] LABS: BASO % 0.2 % (0.0-2.0); EOS % 0.2 % (0.0-4.0); HEMOGLOBIN 10.9 g/dL (12.0-16.0); LYMPH # 1.1 K/uL (1.0-4.3); MEAN CELL VOLUME 85.9 fl (81.0-99.0); MEAN CORPUSCULAR HEMOGLOBIN 28.2 pg (27.0-31.0); MEAN CORPUSCULAR HGB CONC 32.8 g/dL (33.0-37.0); MEAN PLATELET VOLUME 7.9 fl (7.2-11.7); MONO # 1.5 K/uL (0.0-0.8); MONO % 8.7 % (0.0-10.0); NEUT % 84.9 % (50.0-75.0); NRBC % 0.4 % (0.0-0.0); PLATELET COUNT 315 K/uL (130-400); RBC 3.87 Mil/uL (3.80-5.20); RED CELL DISTRIBUTION WIDTH 22.7 % (11.5-14.5); WHITE BLOOD COUNT 17.7 K/uL (4.8-10.8)
[2018-09-08 05:45] LABS: CALCIUM 8.1 mg/dL (8.4-10.2)
--- NOTE | 2018-09-08 08:02 | RAD ---
Date of service: 09/08/2018 HISTORY: pulmonary effusion COMPARISON: Portable chest 09/07/2018. FINDINGS: LUNGS: Patient has been extubated with nasogastric tube removed. Left PICC unchanged in position. Mild perihilar infiltrates are appreciated increasing opacity identified at the right base. This may reflect worsening pneumonia or CHF. Clinically correlate further. No no pleural effusion or pneumothorax bilaterally. PLEURA: As above. CARDIOVASCULAR: Calcific atherosclerotic changes are seen related to the thoracic aorta. Normal cardiac size. Pulmonary vascular congestion not completely excluded. OSSEOUS STRUCTURES: No significant abnormalities. VISUALIZED UPPER ABDOMEN: Normal. OTHER FINDINGS: None. IMPRESSION: Interval worsening of bilateral perihilar and right basilar airspace disease suspicious for worsening pneumonia or possible CHF. Clinically correlate further. Left PICC unchanged in position. Status post extubation and nasogastric tube removal.
[2018-09-08] MEDS: Enoxaparin 80 mg Syringe SC SCH (08:48)
[2018-09-08] MEDS: Fluconazole IV 100mg/50 ml NS 50 ML IVPB SCH (08:49)
[2018-09-08] MEDS: Insulin Lispro (humaLOG) 100 Units/ml Inj SC SCH ×4 (08:50→21:25)
[2018-09-08] MEDS: Insulin Detemir 100 Units/ml Inj SC SCH (10:00)
--- NOTE | 2018-09-08 10:11 | CP.PCM.PN ---
Subjective - Date & Time of Evaluation Date of Evaluation: 09/08/18 Time of Evaluation: 10:11 - Subjective Subjective: Vital signs stable Event where noted last night including worsening of chest x-ray patient was given Lasix Objective - Vital Signs/Intake and Output Vital Signs (last 24 hours): Temp Pulse Resp BP Pulse Ox 97.5 F L 87 18 161/80 H 82 L 09/08/18 08:00 09/08/18 08:00 09/08/18 08:17 09/08/18 08:00 09/08/18 08:00 Intake and Output: 09/08/18 09/08/18 06:59 18:59 Intake Total 24 Output Total 1400 Balance -1376 - Medications Medications: Current Medications Acetaminophen (Tylenol 650mg/20.3ml Solution Ud) 650 mg NG Q6 PRN PRN Reason: Temperature Last Admin: 08/25/18 01:06 Dose: 650 mg Acetaminophen (Tylenol 650mg/20.3ml Solution Ud) 650 mg PO Q6 PRN PRN Reason: Pain, Mild (1-3) Last Admin: 09/02/18 05:54 Dose: 650 mg Albuterol/Ipratropium (Duoneb 3 Mg/0.5 Mg (3 Ml) Ud) 3 ml INH RQ6 PRN PRN Reason: Shortness of Breath Last Admin: 09/07/18 23:30 Dose: 3 ml Amlodipine Besylate (Norvasc) 5 mg PO Q12 [facility] Last Admin: 09/07/18 21:55 Dose: 5 mg Aspirin (Aspirin Chewable) 81 mg NG DAILY [facility] Last Admin: 09/07/18 08:25 Dose: 81 mg Dimethicone (Proshield Plus Skin Protectant) 1 applic TOP Q8 [facility] Last Admin: 09/08/18 00:07 Dose: 1 applic Enoxaparin Sodium (Lovenox) 80 mg SC DAILY [facility]; Protocol Last Admin: 09/08/18 08:48 Dose: 80 mg Hydralazine HCl (Apresoline) 10 mg IV Q6 PRN PRN Reason: Systolic Blood Pressure Last Admin: 09/08/18 00:02 Dose: 10 mg Fluconazole (Diflucan Iv 100 Mg/50 Ml Ns) 50 mls @ 50 mls/hr IVPB DAILY [facility]; P rotocol Stop: 09/09/18 12:00 Last Admin: 09/08/18 08:49 Dose: 50 mls/hr Metronidazole (Flagyl 500mg/100ml Ns) 100 mls @ 100 mls/hr IVPB Q8 [facility]; Protocol Last Admin: 09/08/18 08:49 Dose: 100 mls/hr Potassium Chloride (Potassium Chloride 20 Meq/100 Ml) 100 mls @ 50 mls/hr IVPB Q2 [facility] Stop: 09/08/18 13:59 Insulin Detemir (Levemir) 20 units SC DAILY [facility] Insulin Human Lispro (Humalog) 0 units SC ACHS [facility]; Protocol Last Admin: 09/08/18 08:50 Dose: 3 unit Meclizine HCl (Antivert) 12.5 mg PO DAILY [facility] Last Admin: 08/18/18 09:27 Dose: 12.5 mg Metformin HCl (Glucophage) 1,000 mg PO BID [facility] Last Admin: 08/16/18 09:34 Dose: Not Given Metoprolol Tartrate (Lopressor) 25 mg PO Q8 [facility] Last Admin: 09/08/18 00:03 Dose: 25 mg Nystatin (Nystop Topical Powder) 1 applic TOP TID [facility] Last Admin: 09/07/18 16:29 Dose: 1 applic Pantoprazole Sodium (Protonix Susp) 40 mg NG DAILY [facility] Last Admin: 09/07/18 08:31 Dose: 40 mg Sucralfate (Carafate Oral Susp) 1 gm PO ACHS [facility] Last Admin: 08/18/18 22:07 Dose: 1 gm Vancomycin HCl (Vancocin (Oral/Rectal Use)) 250 mg PO Q8 [facility]; Protocol Last Admin: 09/08/18 00:03 Dose: 250 mg - Labs Labs: 09/08/18 04:50 09/08/18 04:50 PT 13.3 Seconds (9.8-13.1) H 08/25/18 05:00 INR 1.2 08/25/18 05:00 APTT 29.9 Seconds (25.6-37.1) 08/25/18 05:00 - Constitutional Appears: No Acute Distress - Eye Exam Eye Exam: Conjunctival injection - ENT Exam ENT Exam: Mucous Membranes Moist - Neck Exam Neck Exam: absent: Lymphadenopathy - Respiratory Exam Respiratory Exam: Rales, Rhonchi. absent: Chest Wall Tenderness - Cardiovascular Exam Cardiovascular Exam: absent: Gallop, JVD, Rubs - GI/Abdominal Exam GI & Abdominal Exam: Soft, Normal Bowel Sounds - Extremities Exam Extremities Exam: absent: Calf Tenderness - Back Exam Back Exam: absent: CVA tenderness (L), CVA tenderness (R) - Neurological Exam Neurological Exam: Altered - Psychiatric Exam Psychiatric exam: Flat Affect - Skin Skin Exam: absent: Cyanosis Assessment and Plan (1) AURORA (acute kidney injury) Assessment & Plan: acute kidney injury related to multifactorial including sepsis and recovering serum creatinine 1.1 Respiratory failure patient remain on respirator Sepsis ID hypernatremia,corrected 145 hypokalemia corrected 3.2 plan respiratory management Avoid hypotension Antibiotics as per renal doses adjustment Status bilateral thoracocentesis on September 06, removal 800 cc from each side The plan She is recovering from acute kidney injury Potassium supplement for hypokalemia Treatment of congestive heart failure and respiratory failure Status: Acute (2) Acute gastroenteritis Status: Resolved (3) Anginal equivalent Status: Acute
--- NOTE | 2018-09-08 10:20 | CP.CCUPN ---
<Nicole Umana - Last Filed: 09/08/18 09:56> CCU Subjective - Physician Review Subjective (Free Text): This is 73 y/o F admitted to ICU s/p resuscitation from Code Blue/cardiac arrest and intubated. Patient was seen and examined this morning at bedside, s/p extubation on 09/07, patient is on high flow 30% currently. pt is alert and awake, follows simple commands but seems more confused then yesterday. Good UO. VS: Afebrile, 144/70, HR 74, saturating above 92% on 30% high flow PE: HEENT: no icterus, no gaze preference, Pupils 3 mm and reactive NECK: No JVD visible, supple, carotids equal upstroke bilat/no bruit CHEST: decreased BS at the bases, + rales and rhonchi R>L HEART: regular, distant, S1-S2, no rubs ABD: soft, + guarding diffuse, + BS, Rectal tube: black diarrhea EXT: mildly swollen Extremities, no calf tenderness or palpable cords, distal pulses intact and symmetrical, left PICC NEURO: Intubated and mechanical ventilated, alert and awake SKIN: warm and dry, mottled skin lower extremities LABS: WBC: 17.7 H/H: 10.9/33.2 Plt 315 CMP: Significant for K+ 3.4, cl 110, BUN/Cr 52/1.1 Imaging: -CT Head (08/27/18): Normal CT of the Head. -CT Head (08/23/18): Interval acute subacute infarct left [employer] distribution. No definite hemorrhage. Local mass effect identified without global mass effect appreciable. Follow-up CT or MRI advised. -CT Head (08/13/18): Age-appropriate age related neuro degenerative findings without acute intracranial changes at this time. -ECHO w/ Bubble: EF 60-65%; No ASD or PFO noted. -B/l thoracentesis on 09/05: 800cc from each side, analysis transudate -CXR 09/08: worsening airspace disease IMPRESSION/MAJOR PROBLEMS: S/p Cardiac Arrest, Acute resp failure Pneumonia, Aspiration Vs VAP Pulmonary effusion Diffuse abdominal pain/Guarding Acute/Subacute NSTEMI VRE Bacteremia/Sepsis, Coag neg Staph AURORA, multifactorial GI symptoms/GB / Biliary Tract disease DVT Anemia CVA DM-II HTN Hypokalemia PLAN: - Re- extubated on 09/07: currently on high flow and saturating >92%. CXR 09/08: worsening airspace disease, s/p william & linezolid, follow up pulmonary recommendations - cardiac recommendations appreciated - Improved Renal function, c/w Nephro recommendations, treating patient for DVT/NSTEMI - Staph coag neg Bacteremia/ VRE, s/p william & linezolid, repeat Bcx no growth, Fluconazole added for Yeast in Urine and sputum, Flagyl IV and PO vanco for possible c.diff by ID, C.diff negative today, will follow further recommendations from ID - Diffuse abdominal guarding, surgery on case, will follow surgery recommendations, possible CT - S/p VEEG, CT: no acute changes - Stable H/H, S/p 2U Transfusion on 09/02 - B/l thoracentesis on 09/05: 800cc from each side: Fluid analysis- Transudate - Replete pottasium as needed - Swallow eval today - C/w Lovenox 80mg SC daily, Aspirin 81 - C/w Metoprolol 50 PO Q8H /Norvasc 5mg PO BID/Hydralazine 10mg IV Q6H - C/w Insulin Leve 12 U SC and 10U HS daily, with sliding scale - C/w Protonix Case discussed with Dr. Melendez CCU Objective - Vital Signs / Intake & Output Vital Signs (Last 4 hours): Vital Signs Temp Pulse Resp BP Pulse Ox 09/08/18 08:17 18 09/08/18 08:00 97.5 F L 87 16 161/80 H 82 L 09/08/18 06:18 18 09/08/18 06:00 74 17 144/70 100 Intake and Output (Last 8hrs): Intake & Output 09/07/18 09/08/18 09/08/18 22:59 06:59 14:59 Intake Total 16 16 Output Total 750 1400 Balance -734 -1384 Weight 176 lb Intake: IV 16 16 Output: Urine 400 1400 Urethral (Jin) 400 1400 Stool 350 - Medications Active Medications: Active Medications Generic Name Dose Route Start Last Admin Trade Name Freq PRN Reason Stop Dose Admin Acetaminophen 650 mg 08/24/18 10:29 08/25/18 01:06 Tylenol 650mg/20.3ml Solution Ud NG 650 mg Q6 PRN Administration Temperature Acetaminophen 650 mg 08/31/18 19:57 09/02/18 05:54 Tylenol 650mg/20.3ml Solution Ud PO 650 mg Q6 PRN Administration Pain, Mild (1-3) Albuterol/Ipratropium 3 ml 08/31/18 14:34 09/07/18 23:30 Duoneb 3 Mg/0.5 Mg (3 Ml) Ud INH 3 ml RQ6 PRN Administration Shortness of Breath Amlodipine Besylate 5 mg 09/07/18 19:55 09/07/18 21:55 Norvasc PO 5 mg Q12 CARMEN Administration Aspirin 81 mg 09/06/18 09:00 09/07/18 08:25 Aspirin Chewable NG 81 mg DAILY CARMEN Administration Dimethicone 1 applic 09/05/18 17:00 09/08/18 00:07 Proshield Plus Skin Protectant TOP 1 applic Q8 CARMEN Administration Enoxaparin Sodium 80 mg 09/05/18 21:00 09/08/18 08:48 Lovenox SC 80 mg DAILY CARMEN Administration Protocol Hydralazine HCl 10 mg 09/07/18 18:38 09/08/18 00:02 Apresoline IV 10 mg Q6 PRN Administration Systolic Blood Pressure Fluconazole 50 mls @ 50 mls/hr 09/03/18 18:00 09/08/18 08:49 Diflucan Iv 100 Mg/50 Ml Ns IVPB 09/09/18 12:00 50 mls/hr DAILY CARMEN Administration Protocol Metronidazole 100 mls @ 100 mls/hr 09/07/18 17:00 09/08/18 08:49 Flagyl 500mg/100ml Ns IVPB 100 mls/hr Q8 CARMEN Administration Protocol Potassium Chloride 100 mls @ 50 mls/hr 09/08/18 10:00 Potassium Chloride 20 Meq/100 Ml IVPB 09/08/18 13:59 Q2 CARMEN Insulin Detemir 20 units 09/08/18 09:00 Levemir SC DAILY [facility] Insulin Human Lispro 0 units 09/05/18 20:00 09/08/18 08:50 Humalog SC 3 unit ACHS CARMEN Administration Protocol Meclizine HCl 12.5 mg 08/13/18 09:00 08/18/18 09:27 Antivert PO 12.5 mg DAILY CARMEN Administration Metformin HCl 1,000 mg 08/13/18 09:00 08/16/18 09:34 Glucophage PO Not Given BID CARMEN Metoprolol Tartrate 25 mg 09/07/18 19:57 09/08/18 00:03 Lopressor PO 25 mg Q8 CARMEN Administration Nystatin 1 applic 09/05/18 17:00 09/07/18 16:29 Nystop Topical Powder TOP 1 applic TID CARMEN Administration Pantoprazole Sodium 40 mg 09/01/18 14:00 09/07/18 08:31 Protonix Susp NG 40 mg DAILY CARMEN Administration Sucralfate 1 gm 08/14/18 20:30 08/18/18 22:07 Carafate Oral Susp PO 1 gm ACHS CARMEN Administration Vancomycin HCl 250 mg 09/07/18 17:00 09/08/18 00:03 Vancocin (Oral/Rectal Use) PO 250 mg Q8 CARMEN Administration Protocol - Patient Studies Lab Studies: Microbiology Studies 09/06/18 14:30 Mycobacterial Culture - Preliminary Other: Please Indicate 09/06/18 14:30 Fungal Culture - Preliminary Pleural Fluid 09/02/18 10:30 Blood Culture - Final Blood-Thru Central Line NO GROWTH AFTER 5 DAYS Gram Stain - Final TEST NOT PERFORMED 09/02/18 10:15 Blood Culture - Final Blood-Thru Central Line NO GROWTH AFTER 5 DAYS Gram Stain - Final TEST NOT PERFORMED 09/06/18 14:30 Gram Stain - Final Pleural Fluid Body Fluid Culture - Preliminary NO GROWTH AFTER 24 HOURS Lab Studies 09/08/18 09/08/18 09/08/18 Range/Units 04:59 04:50 04:50 WBC 17.7 H (4.8-10.8) K/uL RBC 3.87 (3.80-5.20) Mil/uL Hgb 10.9 L (12.0-16.0) g/dL Hct 33.2 L (34.0-47.0) % MCV 85.9 (81.0-99.0) fl MCH 28.2 (27.0-31.0) pg MCHC 32.8 L (33.0-37.0) g/dL RDW 22.7 H (11.5-14.5) % Plt Count 315 (130-400) K/uL MPV 7.9 (7.2-11.7) fl Neut % (Auto) 84.9 H (50.0-75.0) % Lymph % (Auto) 6.0 L (20.0-40.0) % [place] % (Auto) 8.7 (0.0-10.0) % Eos % (Auto) 0.2 (0.0-4.0) % Baso % (Auto) 0.2 (0.0-2.0) % Neut # (Auto) 15.0 H (1.8-7.0) K/uL Lymph # (Auto) 1.1 (1.0-4.3) K/uL [place] # (Auto) 1.5 H (0.0-0.8) K/uL Eos # (Auto) 0.0 (0.0-0.7) K/uL Baso # (Auto) 0.0 (0.0-0.2) K/uL pCO2 43 (35-45) mm/Hg pO2 46 L (80-100) mm/Hg HCO3 28.7 H (21-28) mmol/L ABG pH 7.45 (7.35-7.45) ABG Total CO2 31.2 H (22-28) mmol/L ABG O2 Saturation 85.4 L (95-98) % ABG O2 Content 13.0 L (15-23) ML/dL ABG Base Excess 5.3 H (-2.0-3.0) mmol/L ABG Hemoglobin 11.2 L (11.7-17.4) g/dL ABG Carboxyhemoglobin 1.9 H (0.5-1.5) % POC ABG HHb (Measured) 14.1 H (0.0-5.0) % ABG Methemoglobin 1.6 (0.0-3.0) % ABG O2 Capacity 15.2 L (16-24) mL/dL Masoud Test Yes A-a O2 Difference 214.0 mm/Hg Hgb O2 Saturation 82.4 L (95.0-98.0) % FiO2 44.0 % Sodium 145 (132-148) mmol/l Potassium 3.4 L (3.6-5.0) MMOL/L Chloride 110 H (98-107) mmol/L Carbon Dioxide 26 (22-30) mmol/L Anion Gap 12 (10-20) BUN 52 H (7-17) mg/dl Creatinine 1.1 (0.7-1.2) mg/dl Est GFR ( Amer) 59 Est GFR (Non-Af Amer) 48 POC Glucose (mg/dL) (65-110) mg/dL Random Glucose 206 H (65-105) mg/dL Calcium 8.1 L (8.4-10.2) mg/dL C. difficile Ag & Toxin (NEGATIVE) 09/07/18 09/07/18 09/07/18 Range/Units 21:17 16:42 16:07 WBC (4.8-10.8) K/uL RBC (3.80-5.20) Mil/uL Hgb (12.0-16.0) g/dL Hct (34.0-47.0) % MCV (81.0-99.0) fl MCH (27.0-31.0) pg MCHC (33.0-37.0) g/dL RDW (11.5-14.5) % Plt Count (130-400) K/uL MPV (7.2-11.7) fl Neut % (Auto) (50.0-75.0) % Lymph % (Auto) (20.0-40.0) % [place] % (Auto) (0.0-10.0) % Eos % (Auto) (0.0-4.0) % Baso % (Auto) (0.0-2.0) % Neut # (Auto) (1.8-7.0) K/uL Lymph # (Auto) (1.0-4.3) K/uL [place] # (Auto) (0.0-0.8) K/uL Eos # (Auto) (0.0-0.7) K/uL Baso # (Auto) (0.0-0.2) K/uL pCO2 (35-45) mm/Hg pO2 (80-100) mm/Hg HCO3 (21-28) mmol/L ABG pH (7.35-7.45) ABG Total CO2 (22-28) mmol/L ABG O2 Saturation (95-98) % ABG O2 Content (15-23) ML/dL ABG Base Excess (-2.0-3.0) mmol/L ABG Hemoglobin (11.7-17.4) g/dL ABG Carboxyhemoglobin (0.5-1.5) % POC ABG HHb (Measured) (0.0-5.0) % ABG Methemoglobin (0.0-3.0) % ABG O2 Capacity (16-24) mL/dL Masoud Test A-a O2 Difference mm/Hg Hgb O2 Saturation (95.0-98.0) % FiO2 % Sodium (132-148) mmol/l Potassium (3.6-5.0) MMOL/L Chloride (98-107) mmol/L Carbon Dioxide (22-30) mmol/L Anion Gap (10-20) BUN (7-17) mg/dl Creatinine (0.7-1.2) mg/dl Est GFR ( Amer) Est GFR (Non-Af Amer) POC Glucose (mg/dL) 175 H 259 H (65-110) mg/dL Random Glucose (65-105) mg/dL Calcium (8.4-10.2) mg/dL C. difficile Ag & Toxin Negative (NEGATIVE) 09/07/18 Range/Units 11:34 WBC (4.8-10.8) K/uL RBC (3.80-5.20) Mil/uL Hgb (12.0-16.0) g/dL Hct (34.0-47.0) % MCV (81.0-99.0) fl MCH (27.0-31.0) pg MCHC (33.0-37.0) g/dL RDW (11.5-14.5) % Plt Count (130-400) K/uL MPV (7.2-11.7) fl Neut % (Auto) (50.0-75.0) % Lymph % (Auto) (20.0-40.0) % [place] % (Auto) (0.0-10.0) % Eos % (Auto) (0.0-4.0) % Baso % (Auto) (0.0-2.0) % Neut # (Auto) (1.8-7.0) K/uL Lymph # (Auto) (1.0-4.3) K/uL [place] # (Auto) (0.0-0.8) K/uL Eos # (Auto) (0.0-0.7) K/uL Baso # (Auto) (0.0-0.2) K/uL pCO2 (35-45) mm/Hg pO2 (80-100) mm/Hg HCO3 (21-28) mmol/L ABG pH (7.35-7.45) ABG Total CO2 (22-28) mmol/L ABG O2 Saturation (95-98) % ABG O2 Content (15-23) ML/dL ABG Base Excess (-2.0-3.0) mmol/L ABG Hemoglobin (11.7-17.4) g/dL ABG Carboxyhemoglobin (0.5-1.5) % POC ABG HHb (Measured) (0.0-5.0) % ABG Methemoglobin (0.0-3.0) % ABG O2 Capacity (16-24) mL/dL Masoud Test A-a O2 Difference mm/Hg Hgb O2 Saturation (95.0-98.0) % FiO2 % Sodium (132-148) mmol/l Potassium (3.6-5.0) MMOL/L Chloride (98-107) mmol/L Carbon Dioxide (22-30) mmol/L Anion Gap (10-20) BUN (7-17) mg/dl Creatinine (0.7-1.2) mg/dl Est GFR ( Amer) Est GFR (Non-Af Amer) POC Glucose (mg/dL) 396 H (65-110) mg/dL Random Glucose (65-105) mg/dL Calcium (8.4-10.2) mg/dL C. difficile Ag & Toxin (NEGATIVE) Laboratory Results - last 24 hr 09/07/18 09/07/18 09/07/18 11:34 16:07 16:42 WBC RBC Hgb Hct MCV MCH MCHC RDW Plt Count MPV Neut % (Auto) Lymph % (Auto) [place] % (Auto) Eos % (Auto) Baso % (Auto) Neut # (Auto) Lymph # (Auto) [place] # (Auto) Eos # (Auto) Baso # (Auto) pCO2 pO2 HCO3 ABG pH ABG Total CO2 ABG O2 Saturation ABG O2 Content ABG Base Excess ABG Hemoglobin ABG Carboxyhemoglobin POC ABG HHb (Measured) ABG Methemoglobin ABG O2 Capacity Masoud Test A-a O2 Difference Hgb O2 Saturation FiO2 Sodium Potassium Chloride Carbon Dioxide Anion Gap BUN Creatinine Est GFR ( Amer) Est GFR (Non-Af Amer) POC Glucose (mg/dL) 396 H 259 H Random Glucose Calcium C. difficile Ag & Toxin Negative 09/07/18 09/08/18 09/08/18 21:17 04:50 04:50 WBC 17.7 H RBC 3.87 Hgb 10.9 L Hct 33.2 L MCV 85.9 MCH 28.2 MCHC 32.8 L RDW 22.7 H Plt Count 315 MPV 7.9 Neut % (Auto) 84.9 H Lymph % (Auto) 6.0 L [place] % (Auto) 8.7 Eos % (Auto) 0.2 Baso % (Auto) 0.2 Neut # (Auto) 15.0 H Lymph # (Auto) 1.1 [place] # (Auto) 1.5 H Eos # (Auto) 0.0 Baso # (Auto) 0.0 pCO2 pO2 HCO3 ABG pH ABG Total CO2 ABG O2 Saturation ABG O2 Content ABG Base Excess ABG Hemoglobin ABG Carboxyhemoglobin POC ABG HHb (Measured) ABG Methemoglobin ABG O2 Capacity Masoud Test A-a O2 Difference Hgb O2 Saturation FiO2 Sodium 145 Potassium 3.4 L Chloride 110 H Carbon Dioxide 26 Anion Gap 12 BUN 52 H Creatinine 1.1 Est GFR ( Amer) 59 Est GFR (Non-Af Amer) 48 POC Glucose (mg/dL) 175 H Random Glucose 206 H Calcium 8.1 L C. difficile Ag & Toxin 09/08/18 04:59 WBC RBC Hgb Hct MCV MCH MCHC RDW Plt Count MPV Neut % (Auto) Lymph % (Auto) [place] % (Auto) Eos % (Auto) Baso % (Auto) Neut # (Auto) Lymph # (Auto) [place] # (Auto) Eos # (Auto) Baso # (Auto) pCO2 43 pO2 46 L HCO3 28.7 H ABG pH 7.45 ABG Total CO2 31.2 H ABG O2 Saturation 85.4 L ABG O2 Content 13.0 L ABG Base Excess 5.3 H ABG Hemoglobin 11.2 L ABG Carboxyhemoglobin 1.9 H POC ABG HHb (Measured) 14.1 H ABG Methemoglobin 1.6 ABG O2 Capacity 15.2 L Masoud Test Yes A-a O2 Difference 214.0 Hgb O2 Saturation 82.4 L FiO2 44.0 Sodium Potassium Chloride Carbon Dioxide Anion Gap BUN Creatinine Est GFR ( Amer) Est GFR (Non-Af Amer) POC Glucose (mg/dL) Random Glucose Calcium C. difficile Ag & Toxin Radiology Impressions: Radiology Impressions Chest X-Ray 09/07/18 05:00 IMPRESSION: Worsening multifocal airspace disease/pulmonary edema. Improved aeration of the right lung following thoracentesis. Stable position of support apparatus. Chest X-Ray 09/08/18 06:00 IMPRESSION: Interval worsening of bilateral perihilar and right basilar airspace disease suspicious for worsening pneumonia or possible CHF. Clinically correlate further. Left PICC unchanged in position. Status post extubation and nasogastric tube removal. EKG/Cardiology Studies: Cardiology / EKG Studies 09/08/18 ELECTROCARDIOGRAM Routine Reason For Exam: MD ORDER Fingerstick Blood Sugar Results: 206 <Morgan Melendez - Last Filed: 09/08/18 11:03> CCU Subjective - Physician Review Subjective (Free Text): Attestation: Patient seen and examined at the bedside with Resident Dr. Jud Umana; and I agree with his outline of plans and management documented above and below, reflecting my review of all applicable clinical data, and participation in the care of the patient throughout the day in ICU; today, September 08, 2018.
[2018-09-08] MEDS: Pantoprazole 40 mg Susp UD NG SCH (11:09)
[2018-09-08] MEDS: Potassium Chloride 20 mEq 100 ML IVPB SCH ×2 (11:12→12:20)
--- NOTE | 2018-09-08 12:48 | CP.PCM.PN ---
Subjective - Date & Time of Evaluation Date of Evaluation: 09/08/18 Time of Evaluation: 13:30 - Subjective Subjective: PT EXTUBATED. APPEARS MILDLY CONFUSED. NODDING YES AND NO TO QUESTIONS. Objective - Vital Signs/Intake and Output Vital Signs (last 24 hours): Temp Pulse Resp BP Pulse Ox 98.2 F 83 14 184/84 H 95 09/08/18 12:00 09/08/18 12:00 09/08/18 12:00 09/08/18 12:00 09/08/18 12:00 Intake and Output: 09/08/18 09/08/18 06:59 18:59 Intake Total 24 200 Output Total 1400 1700 Balance -1376 -1500 - Medications Medications: Current Medications Acetaminophen (Tylenol 650mg/20.3ml Solution Ud) 650 mg NG Q6 PRN PRN Reason: Temperature Last Admin: 08/25/18 01:06 Dose: 650 mg Acetaminophen (Tylenol 650mg/20.3ml Solution Ud) 650 mg PO Q6 PRN PRN Reason: Pain, Mild (1-3) Last Admin: 09/02/18 05:54 Dose: 650 mg Albuterol/Ipratropium (Duoneb 3 Mg/0.5 Mg (3 Ml) Ud) 3 ml INH RQ6 PRN PRN Reason: Shortness of Breath Last Admin: 09/07/18 23:30 Dose: 3 ml Amlodipine Besylate (Norvasc) 5 mg PO Q12 CARMEN Last Admin: 09/08/18 11:09 Dose: Not Given Aspirin (Aspirin Chewable) 81 mg NG DAILY CARMEN Last Admin: 09/08/18 11:08 Dose: Not Given Dimethicone (Proshield Plus Skin Protectant) 1 applic TOP Q8 CARMEN Last Admin: 09/08/18 10:00 Dose: 1 applic Enoxaparin Sodium (Lovenox) 80 mg SC DAILY CARMEN; Protocol Last Admin: 09/08/18 08:48 Dose: 80 mg Hydralazine HCl (Apresoline) 10 mg IV Q6 PRN PRN Reason: Systolic Blood Pressure Last Admin: 09/08/18 00:02 Dose: 10 mg Fluconazole (Diflucan Iv 100 Mg/50 Ml Ns) 50 mls @ 50 mls/hr IVPB DAILY CARMEN; Protocol Stop: 09/09/18 12:00 Last Admin: 09/08/18 08:49 Dose: 50 mls/hr Metronidazole (Flagyl 500mg/100ml Ns) 100 mls @ 100 mls/hr IVPB Q8 [facility]; Protocol Last Admin: 09/08/18 08:49 Dose: 100 mls/hr Potassium Chloride (Potassium Chloride 20 Meq/100 Ml) 100 mls @ 50 mls/hr IVPB Q2 [facility] Stop: 09/08/18 13:59 Last Admin: 09/08/18 12:20 Dose: 50 mls/hr Insulin Detemir (Levemir) 20 units SC DAILY [facility] Last Admin: 09/08/18 10:00 Dose: Not Given Insulin Human Lispro (Humalog) 0 units SC ACHS [facility]; Protocol Last Admin: 09/08/18 12:19 Dose: 2 unit Meclizine HCl (Antivert) 12.5 mg PO DAILY [facility] Last Admin: 08/18/18 09:27 Dose: 12.5 mg Metformin HCl (Glucophage) 1,000 mg PO BID [facility] Last Admin: 08/16/18 09:34 Dose: Not Given Metoprolol Tartrate (Lopressor) 25 mg PO Q8 [facility] Last Admin: 09/08/18 11:09 Dose: Not Given Nystatin (Nystop Topical Powder) 1 applic TOP TID [facility] Last Admin: 09/08/18 12:20 Dose: 1 applic Pantoprazole Sodium (Protonix Susp) 40 mg NG DAILY [facility] Last Admin: 09/08/18 11:09 Dose: Not Given Sucralfate (Carafate Oral Susp) 1 gm PO ACHS [facility] Last Admin: 08/18/18 22:07 Dose: 1 gm Vancomycin HCl (Vancocin (Oral/Rectal Use)) 250 mg PO Q8 [facility]; Protocol Last Admin: 09/08/18 11:10 Dose: Not Given - Labs Labs: 09/08/18 04:50 09/08/18 04:50 PT 13.3 Seconds (9.8-13.1) H 08/25/18 05:00 INR 1.2 08/25/18 05:00 APTT 29.9 Seconds (25.6-37.1) 08/25/18 05:00 - Constitutional Appears: Non-toxic, Confused - Head Exam Head Exam: ATRAUMATIC, NORMAL INSPECTION, NORMOCEPHALIC - Eye Exam Eye Exam: EOMI, Normal appearance, PERRL. absent: Conjunctival injection, Nystagmus, Periorbital swelling, Periorbital tenderness, Scleral icterus Pupil Exam: NORMAL ACCOMODATION, PERRL - ENT Exam ENT Exam: Mucous Membranes Moist, Normal Exam. absent: Mucous Membranes Dry, Normal External Ear Exam, Normal Oropharynx, TM's Normal Bilaterally - Neck Exam Neck Exam: Full ROM, Normal Inspection. absent: Lymphadenopathy, Meningismus, Tenderness, Thyromegaly - Respiratory Exam Respiratory Exam: Decreased Breath Sounds, Rhonchi. absent: Accessory Muscle Use, Chest Wall Tenderness, Clear to Ausculation Bilateral, Prolonged Expiratory Phase, Rales, Wheezes, Respiratory Distress, Stridor, NORMAL BREATHING PATTERN - Cardiovascular Exam Cardiovascular Exam: REGULAR RHYTHM, +S1, +S2, Murmur. absent: Bradycardia, Tachycardia, Clicks, Diastolic murmur, Gallop, Irregular Rhythm, JVD, RRR, Rubs, +S4 - GI/Abdominal Exam GI & Abdominal Exam: Soft, Normal Bowel Sounds. absent: Bruit, Distended, Firm, Guarding, Rigid, Tenderness, Diminished Bowel Sounds, Hernia, Hyperactive Bowel Sounds, Hypoactive Bowel Sounds, Organomegaly, Pulsatile Mass, Rebound, Mass - Rectal Exam Rectal Exam: Deferred - Extremities Exam Extremities Exam: Normal Capillary Refill, Pedal Edema. absent: Calf Tenderness, Full ROM, Joint Swelling, Normal Inspection, Tenderness - Back Exam Back Exam: NORMAL INSPECTION. absent: CVA tenderness (L), CVA tenderness (R), Full ROM, muscle spasm, paraspinal tenderness, rash noted, tenderness, vertebral tenderness - Neurological Exam Neurological Exam: Alert, Awake. absent: Abnormal Gait, Altered, Motor Sensory Deficit, Reflexes Normal - Psychiatric Exam Psychiatric exam: Normal Affect, Normal Mood. absent: Agitated, Anxious, Depressed, Flat Affect, Homicidal Ideation, Manic, Suicidal Ideation - Skin Skin Exam: Dry, Intact, Normal Color, Warm. absent: Abrasion, Cyanosis, Diaphoretic, Erythema, Mottled, Pallor, Pallor, Petechiae, Rash, Urticaria, Vesicles Assessment and Plan (1) AURORA (acute kidney injury) Status: Acute (2) Acute respiratory failure Status: Resolved (3) Mental status alteration Status: Acute (4) NSTEMI (non-ST elevated myocardial infarction) Status: Acute (5) Abnormal EKG Status: Chronic (6) Type 2 diabetes mellitus with hyperglycemia Status: Chronic (7) Hypertension Status: Chronic (8) DVT (deep venous thrombosis) Status: Acute (9) Severe anemia Status: Acute (10) Nausea & vomiting Status: Resolved (11) Acute hypernatremia Status: Resolved - Assessment and Plan (Free Text) Plan: PT WITH MUTLIPLE SYSTEM INVOLVEMENT THROUGHOUT STAY. NSTEMI, CVA, ABD PAIN, RESP FAILURE, RECURRENT SEVERE DECREASE IN HB WITH NO APPARENT GIB OR EXTRAVASATION. EF IS 65, NO RWMA, HAD NO IMPROVEMENT IN RESP STATUS WITH DIURESIS AND SIGNIFICANT INRAVASCULAR DEPLETION. PTS ESR HAS BEEN OVER 100 FOR SEVERAL WEEKS. PT SHOULD BE EVALUATED FOR VASCULITIS/RHEUM DISEASES, ALSO CONSIDER OVA/PARASITES AND HEM/ONC. INNA, RF, ANCA, TOTAL COMP, CRP ORDERED. DISCUSSED STEROID DISCONTINUATION WITH ICU ATTENDING. THEY WILL BE RESTARTED. CT OF CHEST ABD/PELVIS ORDERED. 55 MIN TOTAL CARE TIME.
[2018-09-08 13:15] LABS: HYPOCHROMIC SLIGHT; LYMPHOCYTE 8 % (20-50); MONOCYTE 9 % (0-10); NEUTROPHIL 83 % (42-75); PLATELET ESTIMATE NORMAL (NORMAL); TOTAL CELLS COUNTED 100
[2018-09-08 13:17] LABS: ANISOCYTOSIS MARKED
[2018-09-08] MEDS ORDERED: Iohexol 240 (50 ml) PO ONE (13:18)
[2018-09-08] MEDS ORDERED: methylPREDNISolone 125 MG in Sodium Chloride 0.9% 50 ML IV ONE (13:57)
--- NOTE | 2018-09-08 14:08 | CP.PCM.PN ---
Subjective - Date & Time of Evaluation Date of Evaluation: 09/08/18 Time of Evaluation: 11:10 - Subjective Subjective: F/U PNA awake, confused Objective - Vital Signs/Intake and Output Vital Signs (last 24 hours): Temp Pulse Resp BP Pulse Ox 98.2 F 83 14 184/84 H 95 09/08/18 12:00 09/08/18 12:00 09/08/18 12:00 09/08/18 12:00 09/08/18 12:00 Intake and Output: 09/08/18 09/08/18 06:59 18:59 Intake Total 24 200 Output Total 1400 1700 Balance -1376 -1500 - Medications Medications: Current Medications Acetaminophen (Tylenol 650mg/20.3ml Solution Ud) 650 mg NG Q6 PRN PRN Reason: Temperature Last Admin: 08/25/18 01:06 Dose: 650 mg Acetaminophen (Tylenol 650mg/20.3ml Solution Ud) 650 mg PO Q6 PRN PRN Reason: Pain, Mild (1-3) Last Admin: 09/02/18 05:54 Dose: 650 mg Albuterol/Ipratropium (Duoneb 3 Mg/0.5 Mg (3 Ml) Ud) 3 ml INH RQ6 [facility] Amlodipine Besylate (Norvasc) 5 mg PO Q12 [facility] Last Admin: 09/08/18 11:09 Dose: Not Given Aspirin (Aspirin Chewable) 81 mg NG DAILY [facility] Last Admin: 09/08/18 11:08 Dose: Not Given Dimethicone (Proshield Plus Skin Protectant) 1 applic TOP Q8 [facility] Last Admin: 09/08/18 10:00 Dose: 1 applic Enoxaparin Sodium (Lovenox) 80 mg SC DAILY [facility]; Protocol Last Admin: 09/08/18 08:48 Dose: 80 mg Hydralazine HCl (Apresoline) 10 mg IV Q6 PRN PRN Reason: Systolic Blood Pressure Last Admin: 09/08/18 00:02 Dose: 10 mg Fluconazole (Diflucan Iv 100 Mg/50 Ml Ns) 50 mls @ 50 mls/hr IVPB DAILY [facility]; Protocol Stop: 09/09/18 12:00 Last Admin: 09/08/18 08:49 Dose: 50 mls/hr Metronidazole (Flagyl 500mg/100ml Ns) 100 mls @ 100 mls/hr IVPB Q8 [facility]; Protocol Last Admin: 09/08/18 08:49 Dose: 100 mls/hr Methylprednisolone 125 mg/ (Sodium Chloride) 50 mls @ 100 mls/hr IV ONCE ONE Stop: 09/08/18 14:26 Methylprednisolone 60 mg/ (Sodium Chloride) 50 mls @ 100 mls/hr IV Q6H [facility] Insulin Detemir (Levemir) 20 units SC DAILY [facility] Last Admin: 09/08/18 10:00 Dose: Not Given Insulin Human Lispro (Humalog) 0 units SC [facility]; Protocol Last Admin: 09/08/18 12:19 Dose: 2 unit Meclizine HCl (Antivert) 12.5 mg PO DAILY [facility] Last Admin: 08/18/18 09:27 Dose: 12.5 mg Metformin HCl (Glucophage) 1,000 mg PO BID [facility] Last Admin: 08/16/18 09:34 Dose: Not Given Metoprolol Tartrate (Lopressor) 25 mg PO Q8 [facility] Last Admin: 09/08/18 11:09 Dose: Not Given Nystatin (Nystop Topical Powder) 1 applic TOP TID [facility] Last Admin: 09/08/18 12:20 Dose: 1 applic Pantoprazole Sodium (Protonix Susp) 40 mg NG DAILY [facility] Last Admin: 09/08/18 11:09 Dose: Not Given Sucralfate (Carafate Oral Susp) 1 gm PO LOCATED [facility] Last Admin: 08/18/18 22:07 Dose: 1 gm Vancomycin HCl (Vancocin (Oral/Rectal Use)) 250 mg PO Q8 [facility]; Protocol Last Admin: 09/08/18 11:10 Dose: Not Given - Labs Labs: 09/08/18 04:50 09/08/18 04:50 PT 13.3 Seconds (9.8-13.1) H 08/25/18 05:00 INR 1.2 08/25/18 05:00 APTT 29.9 Seconds (25.6-37.1) 08/25/18 05:00 - Constitutional Appears: No Acute Distress - Head Exam Head Exam: NORMAL INSPECTION - Eye Exam Eye Exam: PERRL - ENT Exam Additional comments: On High-Flow rate 30, FIO2 100 % - Neck Exam Neck Exam: Normal Inspection - Respiratory Exam Respiratory Exam: Decreased Breath Sounds (at bases) - Cardiovascular Exam Cardiovascular Exam: REGULAR RHYTHM, Murmur (systolic) - GI/Abdominal Exam GI & Abdominal Exam: Soft. absent: Distended, Tenderness - Extremities Exam Additional comments: edema - Neurological Exam Neurological Exam: Awake Additional comments: Responsive to verbal and tactile stimuli, confused,generalized weakness , no focal motor deficit - Psychiatric Exam Additional comments: Calm - Skin Skin Exam: Warm Assessment and Plan (1) Acute respiratory failure Status: Resolved (2) Cardiac arrest Status: Resolved (3) Aspiration pneumonia Status: Acute (4) Pleural effusion Status: Acute (5) Atelectasis of both lungs Status: Acute (6) NSTEMI (non-ST elevated myocardial infarction) Status: Acute (7) CHF (congestive heart failure) Status: Acute (8) DVT (deep venous thrombosis) Status: Acute (9) Severe anemia Status: Resolved - Assessment and Plan (Free Text) Plan: discussed with Broke Handler , unresolving Pneumonia, Pleural fluid C-S negative, large B/L effusions 800 cc each 2nd to CHF, repeat CT Chest with IV contrast, Patient may need Lung Bx via Bronchoscopy or VATS , continue current Tx Critical care time: 34 min.
[2018-09-08] MEDS: Albuterol-Ipratrop 3 mg / 0.5 (3 ml) UD INH SCH ×2 (14:35→19:35)
[2018-09-08] MEDS ORDERED: Chlorhexidine Gluconate 1 APPL/PKT TP ONE (14:42)
--- NOTE | 2018-09-08 15:48 | RAD ---
Date of service: 09/08/2018 HISTORY: confirm NGt placement. COMPARISON: September 08, 201804:[id number]. FINDINGS: LUNGS: Stable multifocal infiltrates right greater than left. PLEURA: No significant pleural effusion identified, no pneumothorax apparent. CARDIOVASCULAR: Atherosclerotic calcifications identified primarily aortic arch. OSSEOUS STRUCTURES: No significant abnormalities. VISUALIZED UPPER ABDOMEN: Normal. OTHER FINDINGS: Satisfactory position of endotracheal tube nasogastric tube and PICC line. IMPRESSION: Satisfactory position recently placed nasogastric tube, the tube courses through the esophagus, the tip is in the stomach.
[2018-09-08] MEDS ORDERED: Metoprolol 1 mg/ml Inj ONE (19:11)
[2018-09-08] MEDS ORDERED: Metoprolol 1 mg/ml Inj IVP ONE (19:14)
[2018-09-08] MEDS ORDERED: methylPREDNISolone 60 MG in Sodium Chloride 0.9% 50 ML IV SCH (21:00)
[2018-09-08] MEDS: Metoprolol 1 mg/ml Inj IVP SCH (22:57)
--- NOTE | 2018-09-08 23:01 | CP.PCM.PN ---
Subjective - Date & Time of Evaluation Date of Evaluation: 09/07/18 Time of Evaluation: 21:15 Objective - Vital Signs/Intake and Output Vital Signs (last 24 hours): Temp Pulse Resp BP Pulse Ox 98.5 F 131 H 28 H 163/83 H 99 09/08/18 20:00 09/08/18 22:57 09/08/18 22:00 09/08/18 22:57 09/08/18 22:00 Intake and Output: 09/08/18 09/09/18 18:59 06:59 Intake Total 500 Output Total 2700 Balance -2200 - Medications Medications: Current Medications Acetaminophen (Tylenol 650mg/20.3ml Solution Ud) 650 mg NG Q6 PRN PRN Reason: Temperature Last Admin: 08/25/18 01:06 Dose: 650 mg Acetaminophen (Tylenol 650mg/20.3ml Solution Ud) 650 mg PO Q6 PRN PRN Reason: Pain, Mild (1-3) Last Admin: 09/02/18 05:54 Dose: 650 mg Albuterol/Ipratropium (Duoneb 3 Mg/0.5 Mg (3 Ml) Ud) 3 ml INH RQ6 [facility] Last Admin: 09/08/18 19:35 Dose: 3 ml Amlodipine Besylate (Norvasc) 5 mg PO Q12 [facility] Last Admin: 09/08/18 21:19 Dose: Not Given Aspirin (Aspirin Chewable) 81 mg NG DAILY [facility] Last Admin: 09/08/18 11:08 Dose: Not Given Dimethicone (Proshield Plus Skin Protectant) 1 applic TOP Q8 [facility] Last Admin: 09/08/18 16:52 Dose: 1 applic Hydralazine HCl (Apresoline) 10 mg IV Q6 PRN PRN Reason: Systolic Blood Pressure Last Admin: 09/08/18 15:49 Dose: 10 mg Metronidazole (Flagyl 500mg/100ml Ns) 100 mls @ 100 mls/hr IVPB Q8 [facility]; Protocol Last Admin: 09/08/18 16:48 Dose: 100 mls/hr Insulin Detemir (Levemir) 20 units SC DAILY [facility] Last Admin: 09/08/18 10:00 Dose: Not Given Insulin Human Lispro (Humalog) 0 units SC ACHS [facility]; Protocol Last Admin: 09/08/18 21:25 Dose: Not Given Meclizine HCl (Antivert) 12.5 mg PO DAILY [facility] Last Admin: 08/18/18 09:27 Dose: 12.5 mg Metformin HCl (Glucophage) 1,000 mg PO BID [facility] Last Admin: 08/16/18 09:34 Dose: Not Given Methylprednisolone (Solu-Medrol) 60 mg IV Q6H [facility] Last Admin: 09/08/18 21:21 Dose: 60 mg Metoprolol Tartrate (Lopressor) 25 mg PO Q8 [facility] Last Admin: 09/08/18 16:51 Dose: Not Given Metoprolol Tartrate (Lopressor) 5 mg IVP Q6 [facility] Last Admin: 09/08/18 22:57 Dose: 5 mg Nystatin (Nystop Topical Powder) 1 applic TOP TID [facility] Last Admin: 09/08/18 16:51 Dose: 1 applic Pantoprazole Sodium (Protonix Susp) 40 mg NG DAILY [facility] Last Admin: 09/08/18 11:09 Dose: Not Given Sucralfate (Carafate Oral Susp) 1 gm PO ACHS [facility] Last Admin: 08/18/18 22:07 Dose: 1 gm Vancomycin HCl (Vancocin (Oral/Rectal Use)) 250 mg PO Q8 [facility]; Protocol Last Admin: 09/08/18 16:52 Dose: Not Given - Labs Labs: 09/08/18 04:50 09/08/18 04:50 PT 13.3 Seconds (9.8-13.1) H 08/25/18 05:00 INR 1.2 08/25/18 05:00 APTT 29.9 Seconds (25.6-37.1) 08/25/18 05:00 Assessment and Plan (1) Acute respiratory failure Status: Resolved (2) Hypertensive urgency Status: Resolved (3) DVT (deep venous thrombosis) Status: Acute (4) Cardiac arrest Status: Acute (5) AURORA (acute kidney injury) Status: Acute (6) NSTEMI (non-ST elevated myocardial infarction) Status: Resolved (7) Type 2 diabetes mellitus with hyperglycemia Status: Chronic (8) Acute gastroenteritis Status: Resolved (9) Abdominal pain in female Status: Resolved (10) Gallbladder disease Status: Acute (11) Severe anemia Status: Acute (12) Aspiration pneumonia Status: Acute
--- NOTE | 2018-09-08 23:02 | CP.PCM.PN ---
Subjective - Date & Time of Evaluation Date of Evaluation: 09/08/18 Time of Evaluation: 21:25 Objective - Vital Signs/Intake and Output Vital Signs (last 24 hours): Temp Pulse Resp BP Pulse Ox 98.5 F 131 H 28 H 163/83 H 99 09/08/18 20:00 09/08/18 22:57 09/08/18 22:00 09/08/18 22:57 09/08/18 22:00 Intake and Output: 09/08/18 09/09/18 18:59 06:59 Intake Total 500 Output Total 2700 Balance -2200 - Medications Medications: Current Medications Acetaminophen (Tylenol 650mg/20.3ml Solution Ud) 650 mg NG Q6 PRN PRN Reason: Temperature Last Admin: 08/25/18 01:06 Dose: 650 mg Acetaminophen (Tylenol 650mg/20.3ml Solution Ud) 650 mg PO Q6 PRN PRN Reason: Pain, Mild (1-3) Last Admin: 09/02/18 05:54 Dose: 650 mg Albuterol/Ipratropium (Duoneb 3 Mg/0.5 Mg (3 Ml) Ud) 3 ml INH RQ6 [facility] Last Admin: 09/08/18 19:35 Dose: 3 ml Amlodipine Besylate (Norvasc) 5 mg PO Q12 [facility] Last Admin: 09/08/18 21:19 Dose: Not Given Aspirin (Aspirin Chewable) 81 mg NG DAILY [facility] Last Admin: 09/08/18 11:08 Dose: Not Given Dimethicone (Proshield Plus Skin Protectant) 1 applic TOP Q8 [facility] Last Admin: 09/08/18 16:52 Dose: 1 applic Hydralazine HCl (Apresoline) 10 mg IV Q6 PRN PRN Reason: Systolic Blood Pressure Last Admin: 09/08/18 15:49 Dose: 10 mg Metronidazole (Flagyl 500mg/100ml Ns) 100 mls @ 100 mls/hr IVPB Q8 [facility]; Protocol Last Admin: 09/08/18 16:48 Dose: 100 mls/hr Insulin Detemir (Levemir) 20 units SC DAILY [facility] Last Admin: 09/08/18 10:00 Dose: Not Given Insulin Human Lispro (Humalog) 0 units SC ACHS [facility]; Protocol Last Admin: 09/08/18 21:25 Dose: Not Given Meclizine HCl (Antivert) 12.5 mg PO DAILY [facility] Last Admin: 08/18/18 09:27 Dose: 12.5 mg Metformin HCl (Glucophage) 1,000 mg PO BID [facility] Last Admin: 08/16/18 09:34 Dose: Not Given Methylprednisolone (Solu-Medrol) 60 mg IV Q6H [facility] Last Admin: 09/08/18 21:21 Dose: 60 mg Metoprolol Tartrate (Lopressor) 25 mg PO Q8 [facility] Last Admin: 09/08/18 16:51 Dose: Not Given Metoprolol Tartrate (Lopressor) 5 mg IVP Q6 [facility] Last Admin: 09/08/18 22:57 Dose: 5 mg Nystatin (Nystop Topical Powder) 1 applic TOP TID [facility] Last Admin: 09/08/18 16:51 Dose: 1 applic Pantoprazole Sodium (Protonix Susp) 40 mg NG DAILY [facility] Last Admin: 09/08/18 11:09 Dose: Not Given Sucralfate (Carafate Oral Susp) 1 gm PO ACHS [facility] Last Admin: 08/18/18 22:07 Dose: 1 gm Vancomycin HCl (Vancocin (Oral/Rectal Use)) 250 mg PO Q8 [facility]; Protocol Last Admin: 09/08/18 16:52 Dose: Not Given - Labs Labs: 09/08/18 04:50 09/08/18 04:50 PT 13.3 Seconds (9.8-13.1) H 08/25/18 05:00 INR 1.2 08/25/18 05:00 APTT 29.9 Seconds (25.6-37.1) 08/25/18 05:00 Assessment and Plan (1) Acute respiratory failure Status: Resolved (2) Hypertensive urgency Status: Resolved (3) DVT (deep venous thrombosis) Status: Acute (4) Cardiac arrest Status: Acute (5) AURORA (acute kidney injury) Status: Acute (6) NSTEMI (non-ST elevated myocardial infarction) Status: Resolved (7) Type 2 diabetes mellitus with hyperglycemia Status: Chronic (8) Acute gastroenteritis Status: Resolved (9) Abdominal pain in female Status: Resolved (10) Gallbladder disease Status: Acute (11) Severe anemia Status: Acute (12) Aspiration pneumonia Status: Acute
[2018-09-08 23:50] LABS: ABG ALLEN TEST YES; ARTERIAL BLOOD GAS HCO3 29.6 mmol/L (21-28); ARTERIAL BLOOD GAS HEMOGLOBIN 11.7 g/dL (11.7-17.4); ARTERIAL BLOOD GAS O2 CAPACITY 15.9 mL/dL (16-24); ARTERIAL BLOOD GAS O2 SAT 81.9 % (95-98); ARTERIAL BLOOD GAS PCO2 34 mm/Hg (35-45); ARTERIAL BLOOD GAS PH 7.54 (7.35-7.45); ARTERIAL BLOOD GAS PO2 41 mm/Hg (80-100); ARTERIAL BLOOD GAS TCO2 30.1 mmol/L (22-28)
--- NOTE | 2018-09-09 00:25 | CARD ---
APPROVED REPORT Date of service: 09/08/2018 EKG Measurement Heart [id number] <Conclusion> Normal sinus rhythm Left ventricular hypertrophy with repolarization abnormality Abnormal ECG
[2018-09-09] MEDS: metroNIDAZOLE 500mg/100ml NS 100 ML IVPB SCH ×2 (00:49→08:25)
[2018-09-09] MEDS: Vancomycin 500 mg (Oral/Rectal USE) PO SCH ×2 (00:50→08:34)
[2018-09-09] MEDS: Proshield Plus GEL TOP SCH ×3 (00:51→17:06)
[2018-09-09] MEDS: Albuterol-Ipratrop 3 mg / 0.5 (3 ml) UD INH SCH ×4 (01:02→19:02)
[2018-09-09] MEDS ORDERED: Insulin Detemir 100 Units/ml Inj SC STA (01:12)
[2018-09-09] MEDS ORDERED: Etomidate 20 mg/10ml Inj IV ONE (01:48)
[2018-09-09] MEDS ORDERED: Chlorhexidine Gluconate 1 APPL/PKT TP ONE (02:01)
--- NOTE | 2018-09-09 02:09 | PCM.PROC ---
Procedures Attestation:: I certify that I have explained the specified Operation(s) or Procedure(s), risks, benefits and reasonable alternatives to the Patient and/or other person responsible. The opportunity was given to ask questions and all questions answered - Intubation Time Out Performed: Yes Sedative: Etomidate Laryngoscope: Mackenzie ET Tube Size: 7.5 ET Tube Uncuffed: No ET Tube Secured Locarion: Lips ET Tube Placement Confirmation: Visualized Passing Through Cords, Breath Sounds Equal Bilaterally, No Breath Sounds Over Epigastrum, Confirmation w/Capnometry Patient Tolerated Procedure: No Complications Procedure Immediate Complications: None (Patient intubated because of evere Hypoxemia and respiratory distress. ABG on FiO2 100%; pH 7.54/ 34/41/ 29)
[2018-09-09] MEDS: Metoprolol 1 mg/ml Inj IVP SCH ×3 (04:27→16:57)
[2018-09-09 04:57] LABS: ABG ALLEN TEST YES; ARTERIAL BLOOD GAS HCO3 28.7 mmol/L (21-28); ARTERIAL BLOOD GAS HEMOGLOBIN 11.8 g/dL (11.7-17.4); ARTERIAL BLOOD GAS O2 CAPACITY 16.1 mL/dL (16-24); ARTERIAL BLOOD GAS O2 CONTENT 14.9 ML/dL (15-23); ARTERIAL BLOOD GAS O2 SAT 92.3 % (95-98); ARTERIAL BLOOD GAS PCO2 39 mm/Hg (35-45); ARTERIAL BLOOD GAS PH 7.48 (7.35-7.45); ARTERIAL BLOOD GAS PO2 58 mm/Hg (80-100); ARTERIAL BLOOD GAS TCO2 30.2 mmol/L (22-28)
[2018-09-09 05:48] LABS: BASO % 0.1 % (0.0-2.0); EOS % 0.1 % (0.0-4.0); HEMOGLOBIN 11.6 g/dL (12.0-16.0); LYMPH # 0.3 K/uL (1.0-4.3); LYMPH % 3.2 % (20.0-40.0); MEAN CELL VOLUME 85.8 fl (81.0-99.0); MEAN CORPUSCULAR HEMOGLOBIN 28.3 pg (27.0-31.0); MEAN PLATELET VOLUME 7.9 fl (7.2-11.7); MONO # 0.4 K/uL (0.0-0.8); MONO % 3.8 % (0.0-10.0); NEUT % 92.8 % (50.0-75.0); NRBC % 0.2 % (0.0-0.0); PLATELET COUNT 319 K/uL (130-400); RED CELL DISTRIBUTION WIDTH 23.1 % (11.5-14.5); WHITE BLOOD COUNT 10.7 K/uL (4.8-10.8)
[2018-09-09 06:12] LABS: ALBUMIN 3.1 g/dL (3.5-5.0)
[2018-09-09 06:36] LABS: ERYTHROCYTE SEDIMENTATION RATE 75 mm/hr (0-30)
[2018-09-09 08:17] LABS: EOSINOPHIL 1 % (0-7); LYMPHOCYTE 4 % (20-50); MONOCYTE 2 % (0-10); NEUTROPHIL 93 % (42-75); PLATELET ESTIMATE NORMAL (NORMAL); TOTAL CELLS COUNTED 100
[2018-09-09 08:18] LABS: ANISOCYTOSIS MODERATE; OVALOCYTES MODERATE; SPHEROCYTES SLIGHT
[2018-09-09] MEDS: Insulin Lispro (humaLOG) 100 Units/ml Inj SC SCH ×4 (08:28→22:14)
[2018-09-09] MEDS: Insulin Detemir 100 Units/ml Inj SC SCH (08:30)
[2018-09-09] MEDS: Pantoprazole 40 mg Susp UD NG SCH (08:31)
--- NOTE | 2018-09-09 08:37 | RAD ---
Date of service: 09/09/2018 HISTORY: Post Intubation Chest X Ray COMPARISON: Portable chest 09/08/2018 3:17 p.m.. FINDINGS: LUNGS: Endotracheal and nasogastric tubes do not appear significantly changed in position with left PICC unchanged as well. Distant bilateral perihilar and right basilar infiltrates are identified though right apical opacity has improved. PLEURA: No pneumothorax bilaterally or right pleural effusion. Minimal left pleural effusion remains difficult to exclude. CARDIOVASCULAR: Calcific atherosclerotic changes are seen related to the thoracic aorta. Normal cardiac size. An element of pulmonary vascular congestion remains difficult to exclude however given lack of prominent interstitial changes, this argues against CHF. Clinically correlate further. OSSEOUS STRUCTURES: No significant abnormalities. VISUALIZED UPPER ABDOMEN: Normal. OTHER FINDINGS: None. IMPRESSION: Slightly improved infiltrates in the right greater than left chest persistent bilateral hilar and inferior right pulmonary airspace disease remaining. CHF underlying this process is felt to be less likely though not completely excluded. Further clinical correlation advised.
--- NOTE | 2018-09-09 09:09 | CP.CCUPN ---
<Nicole Umana - Last Filed: 09/09/18 10:21> CCU Subjective - Physician Review Subjective (Free Text): This is 73 y/o F admitted to ICU s/p resuscitation from Code Blue/cardiac arrest and intubated. Patient was seen and examined this morning at bedside, s/p re- extubation on 09/07 and re intubation on 09/09 for hypoxia and resp distress. patient seems agitated and lethargic this morning. Good UO overnight after lasix, + diarrhea. VS: Afebrile, 167/91, HR 123, Intubated and mechanically ventilated PE: HEENT: no icterus, no gaze preference, Pupils 3 mm and reactive NECK: No JVD visible, supple, carotids equal upstroke bilat/no bruit CHEST: decreased BS at the bases, + rales R>L HEART: regular, distant, S1-S2, no rubs ABD: soft and nontender, no tympany, no guarding, no organomegaly, BS +. EXT: mildly swollen Extremities, no calf tenderness or palpable cords, distal pulses intact and symmetrical, left PICC NEURO: Intubated and mechanical ventilated, alert and awake SKIN: warm and dry, mottled skin lower extremities LABS: WBC: 10.7 H/H: 11.6/35.2 Plt 319 CMP: Significant for Na 149, BUN/Cr 47/1.2 ABG reviewed Imaging: -CT Head (08/27/18): Normal CT of the Head. -CT Head (08/23/18): Interval acute subacute infarct left [employer] distribution. No definite hemorrhage. Local mass effect identified without global mass effect appreciable. Follow-up CT or MRI advise d. -CT Head (08/13/18): Age-appropriate age related neuro degenerative findings without acute intracranial changes at this time. -ECHO w/ Bubble: EF 60-65%; No ASD or PFO noted. -B/l thoracentesis on 09/05: 800cc from each side, analysis transudate -CXR 09/08: worsening airspace disease IMPRESSION/MAJOR PROBLEMS: S/p Cardiac Arrest, Acute resp failure Pneumonia, Aspiration Vs VAP vs vasculitis Pulmonary effusion Diffuse abdominal pain/Guarding Acute/Subacute NSTEMI VRE Bacteremia/Sepsis, Coag neg Staph [place], multifactorial GI symptoms/GB / Biliary Tract disease DVT Anemia CVA DM-II HTN Hypokalemia PLAN: - Re-intubated for 3rd time due to hypoxia and resp distress. CXR 09/09: b/l airspace disease/infiltrates, s/p william & linezolid, awaiting for CT chest, follow up pulmonary recommendations, possible bronch - Cardiac recommendations appreciated, c/w Steroids, r/o vascular/Rheum causes of lungs findings, ESR 75 but low pro-calcitonin. elevated pro-BNP, f/u VBG shock panel. possible Lasix PRN vs CARMEN - Improved Renal function, c/w Nephro recommendations, treating patient for DVT/NSTEMI - Staph coag neg Bacteremia/ VRE, s/p william & linezolid, repeat Bcx no growth, Fluconazole added for Yeast in Urine and sputum, Flagyl IV and PO vanco for possible c.diff by ID, C.diff negative on lab. will stop Fluconazole today, add Vanco and cefepime. will follow further recommendations from ID - Diffuse abdominal guarding, possible CT A/P - S/p VEEG, CT: no acute changes - Stable H/H, S/p 2U Transfusion on 09/02 - B/l thoracentesis on 09/05: 800cc from each side: Fluid analysis- Transudate - C/w Lovenox 80mg SC daily, Aspirin 81 - C/w Metoprolol 50 PO Q8H /Norvasc 5mg PO BID/Hydralazine 10mg IV Q6H - C/w Insulin Leve 12 U SC and 10U HS daily, with sliding scale - C/w Protonix Case discussed with Dr. Melendez CCU Objective - Vital Signs / Intake & Output Vital Signs (Last 4 hours): Vital Signs Pulse Resp BP Pulse Ox 09/09/18 06:00 116 H 12 177/86 H 100 Intake and Output (Last 8hrs): Intake & Output 09/08/18 09/09/18 09/09/18 22:59 06:59 14:59 Intake Total 100 100 Output Total 2100 Balance 100 -2000 Intake: Intake, Piggyback 100 Tube Feeding 100 Output: Urine 1700 Urethral (Jin) 1700 Stool 400 - Physical Exam Head: Positive for: Atraumatic, Normocephalic Pupils: Positive for: PERRL. Negative for: Sluggish, Non-Reactive, Pinpoint Conjunctiva: Positive for: Normal. Negative for: Injected, Icteric Mouth: Positive for: Moist Mucous Membranes Nose (External): Positive for: Atraumatic Neck: Positive for: Normal Range of Motion Respiratory/Chest: Positive for: Rhonchi Cardiovascular: Positive for: Regular Rate and Rhythm Abdomen: Positive for: Normal Bowel Sounds. Negative for: Tenderness, Distention, Peritoneal Signs Upper Extremity: Positive for: Normal Inspection, NORMAL PULSES, Capillary Refill < 2s. Negative for: Cyanosis, Edema Lower Extremity: Positive for: Normal Inspection. Negative for: Edema, CALF TENDERNESS Neurological: Positive for: Other (on ventilator, opens eyes to verbal stimuli). Negative for: GCS=15, CN II-XII Intact, Speech Normal, Motor Func Grossly Intact, Normal Sensory Function, Normal Cerebellar Funct, Norm Deep Tendon Reflexes, Gait Normal, Memory Normal, Normal 2Pt Descrimination Psychiatric: Negative for: Alert, Oriented x 3 - Medications Active Medications: Active Medications Generic Name Dose Route Start Last Admin Trade Name Freq PRN Reason Stop Dose Admin Acetaminophen 650 mg 08/24/18 10:29 08/25/18 01:06 Tylenol 650mg/20.3ml Solution Ud NG 650 mg Q6 PRN Administration Temperature Acetaminophen 650 mg 08/31/18 19:57 09/02/18 05:54 Tylenol 650mg/20.3ml Solution Ud PO 650 mg Q6 PRN Administration Pain, Mild (1-3) Albuterol/Ipratropium 3 ml 09/08/18 14:00 09/09/18 07:49 Duoneb 3 Mg/0.5 Mg (3 Ml) Ud INH Not Given RQ6 CARMEN Amlodipine Besylate 5 mg 09/07/18 19:55 09/08/18 21:19 Norvasc PO Not Given Q12 CARMEN Aspirin 81 mg 09/06/18 09:00 09/08/18 11:08 Aspirin Chewable NG Not Given DAILY [facility] Dimethicone 1 applic 09/05/18 17:00 09/09/18 00:51 Proshield Plus Skin Protectant TOP 1 applic Q8 CARMEN Administration Hydralazine HCl 10 mg 09/07/18 18:38 09/08/18 15:49 Apresoline IV 10 mg Q6 PRN Administration Systolic Blood Pressure Metronidazole 100 mls @ 100 mls/hr 09/07/18 17:00 09/09/18 00:49 Flagyl 500mg/100ml Ns IVPB 100 mls/hr Q8 [facility] Administration Protocol Insulin Detemir 20 units 09/08/18 09:00 09/08/18 10:00 Levemir SC Not Given DAILY CARMEN Insulin Human Lispro 0 units 09/05/18 20:00 09/08/18 21:25 Humalog SC Not Given [facility] Protocol Meclizine HCl 12.5 mg 08/13/18 09:00 08/18/18 09:27 Antivert PO 12.5 mg DAILY CARMEN Administration Metformin HCl 1,000 mg 08/13/18 09:00 08/16/18 09:34 Glucophage PO Not Given BID [facility] Methylprednisolone 60 mg 09/08/18 15:15 09/09/18 03:55 Solu-Medrol IV 60 mg Q6H [facility]MEN Administration Metoprolol Tartrate 25 mg 09/07/18 19:57 09/08/18 16:51 Lopressor PO Not Given Q8 [facility] Metoprolol Tartrate 5 mg 09/08/18 22:00 09/09/18 04:27 Lopressor IVP 5 mg Q6 [facility] Administration Nystatin 1 applic 09/05/18 17:00 09/08/18 16:51 Nystop Topical Powder TOP 1 applic TID [facility] Administration Pantoprazole Sodium 40 mg 09/01/18 14:00 09/08/18 11:09 Protonix Susp NG Not Given DAILY [facility] Sucralfate 1 gm 08/14/18 20:30 08/18/18 22:07 Carafate Oral Susp PO 1 gm [facility] Administration Vancomycin HCl 250 mg 09/07/18 17:00 09/09/18 00:50 Vancocin (Oral/Rectal Use) PO Not Given Q8 [facility] Protocol - Patient Studies Lab Studies: Microbiology Studies 09/06/18 14:30 Gram Stain - Final Pleural Fluid Body Fluid Culture - Preliminary NO GROWTH AFTER 2 DAYS Lab Studies 09/09/18 09/09/18 09/09/18 Range/Units 06:25 04:37 04:25 WBC (4.8-10.8) K/uL RBC (3.80-5.20) Mil/uL Hgb (12.0-16.0) g/dL Hct (34.0-47.0) % MCV (81.0-99.0) fl MCH (27.0-31.0) pg MCHC (33.0-37.0) g/dL RDW (11.5-14.5) % Plt Count (130-400) K/uL MPV (7.2-11.7) fl Neut % (Auto) (50.0-75.0) % Lymph % (Auto) (20.0-40.0) % [place] % (Auto) (0.0-10.0) % Eos % (Auto) (0.0-4.0) % Baso % (Auto) (0.0-2.0) % Neut # (Auto) (1.8-7.0) K/uL Lymph # (Auto) (1.0-4.3) K/uL [place] # (Auto) (0.0-0.8) K/uL Eos # (Auto) (0.0-0.7) K/uL Baso # (Auto) (0.0-0.2) K/uL Neutrophils % (Manual) (42-75) % Lymphocytes % (Manual) (20-50) % Monocytes % (Manual) (0-10) % Eosinophils % (Manual) (0-7) % Platelet Estimate (NORMAL) Hypochromasia (manual) Anisocytosis (manual) Macrocytosis (manual) Spherocytes Ovalocytes ESR (0-30) mm/hr pCO2 39 (35-45) mm/Hg pO2 58 L (80-100) mm/Hg HCO3 28.7 H (21-28) mmol/L ABG pH 7.48 H (7.35-7.45) ABG Total CO2 30.2 H (22-28) mmol/L ABG O2 Saturation 92.3 L (95-98) % ABG O2 Content 14.9 L (15-23) ML/dL ABG Base Excess 5.1 H (-2.0-3.0) mmol/L ABG Hemoglobin 11.8 (11.7-17.4) g/dL ABG Carboxyhemoglobin 1.6 H (0.5-1.5) % POC ABG HHb (Measured) 7.5 H (0.0-5.0) % ABG Methemoglobin 1.3 (0.0-3.0) % ABG O2 Capacity 16.1 (16-24) mL/dL Masoud Test Yes A-a O2 Difference 606.0 mm/Hg Hgb O2 Saturation 89.6 L (95.0-98.0) % Liter Flow Vent Mode A/c Mechanical Rate 14 FiO2 100.0 % Tidal Volume 400 PEEP 7 Crit Value Called To Crit Value Called By Crit Value Read Back Blood Gas Notified Time Sodium 149 H (132-148) mmol/l Potassium 4.0 (3.6-5.0) MMOL/L Chloride 108 H (98-107) mmol/L Carbon Dioxide 29 (22-30) mmol/L Anion Gap 16 (10-20) BUN 47 H (7-17) mg/dl Creatinine 1.2 (0.7-1.2) mg/dl Est GFR ( Amer) 53 Est GFR (Non-Af Amer) 44 POC Glucose (mg/dL) 345 H (65-110) mg/dL Random Glucose 382 H (65-105) mg/dL Calcium 8.0 L (8.4-10.2) mg/dL Total Bilirubin 1.1 (0.2-1.3) mg/dl AST 39 H D (14-36) U/L ALT 32 (9-52) U/L Alkaline Phosphatase 115 (38-126) U/L Total Protein 6.3 (6.3-8.2) G/DL Albumin 3.1 L (3.5-5.0) g/dL Globulin 3.2 (2.2-3.9) gm/dL Albumin/Globulin Ratio 1.0 (1.0-2.1) Amylase 108 (30-110) U/L Lipase 238 (23-300) U/L Procalcitonin (0.19-0.49) NG/ML 09/09/18 09/09/18 09/08/18 Range/Units 04:25 01:04 23:44 WBC 10.7 (4.8-10.8) K/uL RBC 4.10 (3.80-5.20) Mil/uL Hgb 11.6 L (12.0-16.0) g/dL Hct 35.2 (34.0-47.0) % MCV 85.8 (81.0-99.0) fl MCH 28.3 (27.0-31.0) pg MCHC 33.0 (33.0-37.0) g/dL RDW 23.1 H (11.5-14.5) % Plt Count 319 (130-400) K/uL MPV 7.9 (7.2-11.7) fl Neut % (Auto) 92.8 H (50.0-75.0) % Lymph % (Auto) 3.2 L (20.0-40.0) % [place] % (Auto) 3.8 (0.0-10.0) % Eos % (Auto) 0.1 (0.0-4.0) % Baso % (Auto) 0.1 (0.0-2.0) % Neut # (Auto) 10.0 H (1.8-7.0) K/uL Lymph # (Auto) 0.3 L (1.0-4.3) K/uL [place] # (Auto) 0.4 (0.0-0.8) K/uL Eos # (Auto) 0.0 (0.0-0.7) K/uL Baso # (Auto) 0.0 (0.0-0.2) K/uL Neutrophils % (Manual) 93 H (42-75) % Lymphocytes % (Manual) 4 L (20-50) % Monocytes % (Manual) 2 (0-10) % Eosinophils % (Manual) 1 (0-7) % Platelet Estimate Normal (NORMAL) Hypochromasia (manual) Anisocytosis (manual) Moderate Macrocytosis (manual) Slight Spherocytes Slight Ovalocytes Moderate ESR 75 H (0-30) mm/hr pCO2 34 L (35-45) mm/Hg pO2 41 L* (80-100) mm/Hg HCO3 29.6 H (21-28) mmol/L ABG pH 7.54 H (7.35-7.45) ABG Total CO2 30.1 H (22-28) mmol/L ABG O2 Saturation 81.9 L (95-98) % ABG O2 Content 13.0 L (15-23) ML/dL ABG Base Excess 6.5 H (-2.0-3.0) mmol/L ABG Hemoglobin 11.7 (11.7-17.4) g/dL ABG Carboxyhemoglobin 1.9 H (0.5-1.5) % POC ABG HHb (Measured) 17.5 H (0.0-5.0) % ABG Methemoglobin 1.3 (0.0-3.0) % ABG O2 Capacity 15.9 L (16-24) mL/dL Masoud Test Yes A-a O2 Difference 630.0 mm/Hg Hgb O2 Saturation 79.3 L (95.0-98.0) % Liter Flow 20 Vent Mode Mechanical Rate FiO2 100.0 % Tidal Volume PEEP Crit Value Called To Kendy lovett rn Crit Value Called By 302 Crit Value Read Back Y Blood Gas Notified Time 2350 Sodium (132-148) mmol/l Potassium (3.6-5.0) MMOL/L Chloride (98-107) mmol/L Carbon Dioxide (22-30) mmol/L Anion Gap (10-20) BUN (7-17) mg/dl Creatinine (0.7-1.2) mg/dl Est GFR ( Amer) Est GFR (Non-Af Amer) POC Glucose (mg/dL) 380 H (65-110) mg/dL Random Glucose (65-105) mg/dL Calcium (8.4-10.2) mg/dL Total Bilirubin (0.2-1.3) mg/dl AST (14-36) U/L ALT (9-52) U/L Alkaline Phosphatase (38-126) U/L Total Protein (6.3-8.2) G/DL Albumin (3.5-5.0) g/dL Globulin (2.2-3.9) gm/dL Albumin/Globulin Ratio (1.0-2.1) Amylase (30-110) U/L Lipase (23-300) U/L Procalcitonin (0.19-0.49) NG/ML 09/08/18 09/08/18 09/08/18 Range/Units 21:00 16:46 15:45 WBC (4.8-10.8) K/uL RBC (3.80-5.20) Mil/uL Hgb (12.0-16.0) g/dL Hct (34.0-47.0) % MCV (81.0-99.0) fl MCH (27.0-31.0) pg MCHC (33.0-37.0) g/dL RDW (11.5-14.5) % Plt Count (130-400) K/uL MPV (7.2-11.7) fl Neut % (Auto) (50.0-75.0) % Lymph % (Auto) (20.0-40.0) % [place] % (Auto) (0.0-10.0) % Eos % (Auto) (0.0-4.0) % Baso % (Auto) (0.0-2.0) % Neut # (Auto) (1.8-7.0) K/uL Lymph # (Auto) (1.0-4.3) K/uL [place] # (Auto) (0.0-0.8) K/uL Eos # (Auto) (0.0-0.7) K/uL Baso # (Auto) (0.0-0.2) K/uL Neutrophils % (Manual) (42-75) % Lymphocytes % (Manual) (20-50) % Monocytes % (Manual) (0-10) % Eosinophils % (Manual) (0-7) % Platelet Estimate (NORMAL) Hypochromasia (manual) Anisocytosis (manual) Macrocytosis (manual) Spherocytes Ovalocytes ESR (0-30) mm/hr pCO2 (35-45) mm/Hg pO2 (80-100) mm/Hg HCO3 (21-28) mmol/L ABG pH (7.35-7.45) ABG Total CO2 (22-28) mmol/L ABG O2 Saturation (95-98) % ABG O2 Content (15-23) ML/dL ABG Base Excess (-2.0-3.0) mmol/L ABG Hemoglobin (11.7-17.4) g/dL ABG Carboxyhemoglobin (0.5-1.5) % POC ABG HHb (Measured) (0.0-5.0) % ABG Methemoglobin (0.0-3.0) % ABG O2 Capacity (16-24) mL/dL Masoud Test A-a O2 Difference mm/Hg Hgb O2 Saturation (95.0-98.0) % Liter Flow Vent Mode Mechanical Rate FiO2 % Tidal Volume PEEP Crit Value Called To Crit Value Called By Crit Value Read Back Blood Gas Notified Time Sodium (132-148) mmol/l Potassium (3.6-5.0) MMOL/L Chloride (98-107) mmol/L Carbon Dioxide (22-30) mmol/L Anion Gap (10-20) BUN (7-17) mg/dl Creatinine (0.7-1.2) mg/dl Est GFR ( Amer) Est GFR (Non-Af Amer) POC Glucose (mg/dL) 240 H 209 H (65-110) mg/dL Random Glucose (65-105) mg/dL Calcium (8.4-10.2) mg/dL Total Bilirubin (0.2-1.3) mg/dl AST (14-36) U/L ALT (9-52) U/L Alkaline Phosphatase (38-126) U/L Total Protein (6.3-8.2) G/DL Albumin (3.5-5.0) g/dL Globulin (2.2-3.9) gm/dL Albumin/Globulin Ratio (1.0-2.1) Amylase (30-110) U/L Lipase (23-300) U/L Procalcitonin 0.09 L (0.19-0.49) NG/ML 09/08/18 09/08/18 Range/Units 11:21 04:50 WBC (4.8-10.8) K/uL RBC (3.80-5.20) Mil/uL Hgb (12.0-16.0) g/dL Hct (34.0-47.0) % MCV (81.0-99.0) fl MCH (27.0-31.0) pg MCHC (33.0-37.0) g/dL RDW (11.5-14.5) % Plt Count (130-400) K/uL MPV (7.2-11.7) fl Neut % (Auto) (50.0-75.0) % Lymph % (Auto) (20.0-40.0) % [place] % (Auto) (0.0-10.0) % Eos % (Auto) (0.0-4.0) % Baso % (Auto) (0.0-2.0) % Neut # (Auto) (1.8-7.0) K/uL Lymph # (Auto) (1.0-4.3) K/uL [place] # (Auto) (0.0-0.8) K/uL Eos # (Auto) (0.0-0.7) K/uL Baso # (Auto) (0.0-0.2) K/uL Neutrophils % (Manual) 83 H (42-75) % Lymphocytes % (Manual) 8 L (20-50) % Monocytes % (Manual) 9 (0-10) % Eosinophils % (Manual) (0-7) % Platelet Estimate Normal (NORMAL) Hypochromasia (manual) Slight Anisocytosis (manual) Marked Macrocytosis (manual) Spherocytes Ovalocytes ESR (0-30) mm/hr pCO2 (35-45) mm/Hg pO2 (80-100) mm/Hg HCO3 (21-28) mmol/L ABG pH (7.35-7.45) ABG Total CO2 (22-28) mmol/L ABG O2 Saturation (95-98) % ABG O2 Content (15-23) ML/dL ABG Base Excess (-2.0-3.0) mmol/L ABG Hemoglobin (11.7-17.4) g/dL ABG Carboxyhemoglobin (0.5-1.5) % POC ABG HHb (Measured) (0.0-5.0) % ABG Methemoglobin (0.0-3.0) % ABG O2 Capacity (16-24) mL/dL Masoud Test A-a O2 Difference mm/Hg Hgb O2 Saturation (95.0-98.0) % Liter Flow Vent Mode Mechanical Rate FiO2 % Tidal Volume PEEP Crit Value Called To Crit Value Called By Crit Value Read Back Blood Gas Notified Time Sodium (132-148) mmol/l Potassium (3.6-5.0) MMOL/L Chloride (98-107) mmol/L Carbon Dioxide (22-30) mmol/L Anion Gap (10-20) BUN (7-17) mg/dl Creatinine (0.7-1.2) mg/dl Est GFR ( Amer) Est GFR (Non-Af Amer) POC Glucose (mg/dL) 168 H (65-110) mg/dL Random Glucose (65-105) mg/dL Calcium (8.4-10.2) mg/dL Total Bilirubin (0.2-1.3) mg/dl AST (14-36) U/L ALT (9-52) U/L Alkaline Phosphatase (38-126) U/L Total Protein (6.3-8.2) G/DL Albumin (3.5-5.0) g/dL Globulin (2.2-3.9) gm/dL Albumin/Globulin Ratio (1.0-2.1) Amylase (30-110) U/L Lipase (23-300) U/L Procalcitonin (0.19-0.49) NG/ML Laboratory Results - last 24 hr 09/08/18 09/08/18 09/08/18 04:50 11:21 15:45 WBC RBC Hgb Hct MCV MCH MCHC RDW Plt Count MPV Neut % (Auto) Lymph % (Auto) [place] % (Auto) Eos % (Auto) Baso % (Auto) Neut # (Auto) Lymph # (Auto) [place] # (Auto) Eos # (Auto) Baso # (Auto) Neutrophils % (Manual) 83 H Lymphocytes % (Manual) 8 L Monocytes % (Manual) 9 Eosinophils % (Manual) Platelet Estimate Normal Hypochromasia (manual) Slight Anisocytosis (manual) Marked Macrocytosis (manual) Spherocytes Ovalocytes ESR pCO2 pO2 HCO3 ABG pH ABG Total CO2 ABG O2 Saturation ABG O2 Content ABG Base Excess ABG Hemoglobin ABG Carboxyhemoglobin POC ABG HHb (Measured) ABG Methemoglobin ABG O2 Capacity Masoud Test A-a O2 Difference Hgb O2 Saturation Liter Flow Vent Mode Mechanical Rate FiO2 Tidal Volume PEEP Crit Value Called To Crit Value Called By Crit Value Read Back Blood Gas Notified Time Sodium Potassium Chloride Carbon Dioxide Anion Gap BUN Creatinine Est GFR ( Amer) Est GFR (Non-Af Amer) POC Glucose (mg/dL) 168 H Random Glucose Calcium Total Bilirubin AST ALT Alkaline Phosphatase Total Protein Albumin Globulin Albumin/Globulin Ratio Amylase Lipase Procalcitonin 0.09 L 09/08/18 09/08/18 09/08/18 16:46 21:00 23:44 WBC RBC Hgb Hct MCV MCH MCHC RDW Plt Count MPV Neut % (Auto) Lymph % (Auto) [place] % (Auto) Eos % (Auto) Baso % (Auto) Neut # (Auto) Lymph # (Auto) [place] # (Auto) Eos # (Auto) Baso # (Auto) Neutrophils % (Manual) Lymphocytes % (Manual) Monocytes % (Manual) Eosinophils % (Manual) Platelet Estimate Hypochromasia (manual) Anisocytosis (manual) Macrocytosis (manual) Spherocytes Ovalocytes ESR pCO2 34 L pO2 41 L* HCO3 29.6 H ABG pH 7.54 H ABG Total CO2 30.1 H ABG O2 Saturation 81.9 L ABG O2 Content 13.0 L ABG Base Excess 6.5 H ABG Hemoglobin 11.7 ABG Carboxyhemoglobin 1.9 H POC ABG HHb (Measured) 17.5 H ABG Methemoglobin 1.3 ABG O2 Capacity 15.9 L Masoud Test Yes A-a O2 Difference 630.0 Hgb O2 Saturation 79.3 L Liter Flow 20 Vent Mode Mechanical Rate FiO2 100.0 Tidal Volume PEEP Crit Value Called To Kendy lovett rn Crit Value Called By Michell Crit Value Read Back Y Blood Gas Notified Time 2350 Sodium Potassium Chloride Carbon Dioxide Anion Gap BUN Creatinine Est GFR ( Amer) Est GFR (Non-Af Amer) POC Glucose (mg/dL) 209 H 240 H Random Glucose Calcium Total Bilirubin AST ALT Alkaline Phosphatase Total Protein Albumin Globulin Albumin/Globulin Ratio Amylase Lipase Procalcitonin 09/09/18 09/09/18 09/09/18 01:04 04:25 04:25 WBC 10.7 RBC 4.10 Hgb 11.6 L Hct 35.2 MCV 85.8 MCH 28.3 MCHC 33.0 RDW 23.1 H Plt Count 319 MPV 7.9 Neut % (Auto) 92.8 H Lymph % (Auto) 3.2 L [place] % (Auto) 3.8 Eos % (Auto) 0.1 Baso % (Auto) 0.1 Neut # (Auto) 10.0 H Lymph # (Auto) 0.3 L [place] # (Auto) 0.4 Eos # (Auto) 0.0 Baso # (Auto) 0.0 Neutrophils % (Manual) 93 H Lymphocytes % (Manual) 4 L Monocytes % (Manual) 2 Eosinophils % (Manual) 1 Platelet Estimate Normal Hypochromasia (manual) Anisocytosis (manual) Moderate Macrocytosis (manual) Slight Spherocytes Slight Ovalocytes Moderate ESR 75 H pCO2 pO2 HCO3 ABG pH ABG Total CO2 ABG O2 Saturation ABG O2 Content ABG Base Excess ABG Hemoglobin ABG Carboxyhemoglobin POC ABG HHb (Measured) ABG Methemoglobin ABG O2 Capacity Masoud Test A-a O2 Difference Hgb O2 Saturation Liter Flow Vent Mode Mechanical Rate FiO2 Tidal Volume PEEP Crit Value Called To Crit Value Called By Crit Value Read Back Blood Gas Notified Time Sodium 149 H Potassium 4.0 Chloride 108 H Carbon Dioxide 29 Anion Gap 16 BUN 47 H Creatinine 1.2 Est GFR ( Amer) 53 Est GFR (Non-Af Amer) 44 POC Glucose (mg/dL) 380 H Random Glucose 382 H Calcium 8.0 L Total Bilirubin 1.1 AST 39 H D ALT 32 Alkaline Phosphatase 115 Total Protein 6.3 Albumin 3.1 L Globulin 3.2 Albumin/Globulin Ratio 1.0 Amylase 108 Lipase 238 Procalcitonin 09/09/18 09/09/18 04:37 06:25 WBC RBC Hgb Hct MCV MCH MCHC RDW Plt Count MPV Neut % (Auto) Lymph % (Auto) [place] % (Auto) Eos % (Auto) Baso % (Auto) Neut # (Auto) Lymph # (Auto) [place] # (Auto) Eos # (Auto) Baso # (Auto) Neutrophils % (Manual) Lymphocytes % (Manual) Monocytes % (Manual) Eosinophils % (Manual) Platelet Estimate Hypochromasia (manual) Anisocytosis (manual) Macrocytosis (manual) Spherocytes Ovalocytes ESR pCO2 39 pO2 58 L HCO3 28.7 H ABG pH 7.48 H ABG Total CO2 30.2 H ABG O2 Saturation 92.3 L ABG O2 Content 14.9 L ABG Base Excess 5.1 H ABG Hemoglobin 11.8 ABG Carboxyhemoglobin 1.6 H POC ABG HHb (Measured) 7.5 H ABG Methemoglobin 1.3 ABG O2 Capacity 16.1 Masoud Test Yes A-a O2 Difference 606.0 Hgb O2 Saturation 89.6 L Liter Flow Vent Mode A/c Mechanical Rate 14 FiO2 100.0 Tidal Volume 400 PEEP 7 Crit Value Called To Crit Value Called By Crit Value Read Back Blood Gas Notified Time Sodium Potassium Chloride Carbon Dioxide Anion Gap BUN Creatinine Est GFR ( Amer) Est GFR (Non-Af Amer) POC Glucose (mg/dL) 345 H Random Glucose Calcium Total Bilirubin AST ALT Alkaline Phosphatase Total Protein Albumin Globulin Albumin/Globulin Ratio Amylase Lipase Procalcitonin Radiology Impressions: Radiology Impressions Chest X-Ray 09/08/18 14:57 IMPRESSION: Satisfactory position recently placed nasogastric tube, the tube courses through the esophagus, the tip is in the stomach. EKG/Cardiology Studies: Cardiology / EKG Studies 09/08/18 18:59 EKG [ELECTROCARDIOGRAM] Stat Comment: Mode Of Transportation: PORTABLE Reason For Exam: EKG changes PRE OP:: N Fingerstick Blood Sugar Results: 380 <Morgan Melendez - Last Filed: 09/09/18 14:20> CCU Subjective - Physician Review Subjective (Free Text): Attestation: Patient seen and examined at the bedside with Resident Dr. Jdu Umana; and I agree with his outline of plans and management documented above and below, reflecting my review of all applicable clinical data, and participation in the care of the patient throughout the day in ICU; today, September 09, 2018. Discussed with PMD and Pulm: required re-intubation and MV support for recurrent hypoxemia and worsening CXR findings off positive pressure ventilation. CXR done post intubation shows improved aeration of both apical regions. Persistent multilobular, bibasilar infiltrates remain. Sputum cultures re-obtained. Empiric abx coverage to be re-initiated with Tam Hirscho and to change antifungal coverage to Caspofungin- discussed with ID. Agree with initial work-up for connective tissue/ vasculitic disease given unprovoked LE DVT. Pulm requesting a repeat CT Chest today, and may consider FOB/BAL and possible lung biopsy if lung findings remain non-diagnostic. Unclear if initial CXR findings (08/19/18 @914AM) back when patient was first intubated as part of resuscitation from [facility] [place], was indicative of an aspiration pneumonitis / pneumonia picture. Given my interpretation of todays CXR picture with pulmonic parenchymal findings suggestive of an embolic pneumonia process, would consider doing a repeat ECHO to look for vegetative valvular disease.
--- NOTE | 2018-09-09 09:32 | CP.PCM.PN ---
Subjective - Date & Time of Evaluation Date of Evaluation: 09/09/18 Time of Evaluation: 09:32 - Subjective Subjective: Patient remain intubated And appeared to be restless on the ventilator. Will sign noted Blood tests reviewed and noted worsening hypernatremia Objective - Vital Signs/Intake and Output Vital Signs (last 24 hours): Temp Pulse Resp BP Pulse Ox 99.1 F 125 H 12 182/96 H 100 09/09/18 04:00 09/09/18 08:30 09/09/18 06:00 09/09/18 08:30 09/09/18 06:00 Intake and Output: 09/09/18 09/09/18 06:59 18:59 Intake Total 100 Output Total 2100 Balance -1999 - Medications Medications: Current Medications Acetaminophen (Tylenol 650mg/20.3ml Solution Ud) 650 mg NG Q6 PRN PRN Reason: Temperature Last Admin: 08/25/18 01:06 Dose: 650 mg Acetaminophen (Tylenol 650mg/20.3ml Solution Ud) 650 mg PO Q6 PRN PRN Reason: Pain, Mild (1-3) Last Admin: 09/02/18 05:54 Dose: 650 mg Albuterol/Ipratropium (Duoneb 3 Mg/0.5 Mg (3 Ml) Ud) 3 ml INH RQ6 [facility] Last Admin: 09/09/18 07:49 Dose: Not Given Amlodipine Besylate (Norvasc) 5 mg PO Q12 [facility] Last Admin: 09/09/18 08:30 Dose: 5 mg Aspirin (Aspirin Chewable) 81 mg NG DAILY [facility] Last Admin: 09/08/18 11:08 Dose: Not Given Dimethicone (Proshield Plus Skin Protectant) 1 applic TOP Q8 [facility] Last Admin: 09/09/18 08:31 Dose: 1 applic Hydralazine HCl (Apresoline) 10 mg IV Q6 PRN PRN Reason: Systolic Blood Pressure Last Admin: 09/08/18 15:49 Dose: 10 mg Metronidazole (Flagyl 500mg/100ml Ns) 100 mls @ 100 mls/hr IVPB Q8 [facility]; Protocol Last Admin: 09/09/18 08:25 Dose: 100 mls/hr Insulin Detemir (Levemir) 20 units SC DAILY [facility] Last Admin: 09/09/18 08:30 Dose: 20 units Insulin Human Lispro (Humalog) 0 units SC [facility]; Protocol Last Admin: 09/09/18 08:28 Dose: 6 unit Meclizine HCl (Antivert) 12.5 mg PO DAILY [facility] Last Admin: 08/18/18 09:27 Dose: 12.5 mg Metformin HCl (Glucophage) 1,000 mg PO BID [facility] Last Admin: 08/16/18 09:34 Dose: Not Given Methylprednisolone (Solu-Medrol) 60 mg IV Q6H [facility] Last Admin: 09/09/18 08:32 Dose: 60 mg Metoprolol Tartrate (Lopressor) 25 mg PO Q8 [facility] Last Admin: 09/08/18 16:51 Dose: Not Given Metoprolol Tartrate (Lopressor) 5 mg IVP Q6 [facility] Last Admin: 09/09/18 04:27 Dose: 5 mg Nystatin (Nystop Topical Powder) 1 applic TOP TID [facility] Last Admin: 09/09/18 08:31 Dose: 1 applic Pantoprazole Sodium (Protonix Susp) 40 mg NG DAILY [facility] Last Admin: 09/09/18 08:31 Dose: 40 mg Sucralfate (Carafate Oral Susp) 1 gm PO [facility] Last Admin: 08/18/18 22:07 Dose: 1 gm Vancomycin HCl (Vancocin (Oral/Rectal Use)) 250 mg PO Q8 [facility]; Protocol Last Admin: 09/09/18 08:34 Dose: 250 mg - Labs Labs: 09/09/18 04:25 09/09/18 04:25 PT 13.3 Seconds (9.8-13.1) H 08/25/18 05:00 INR 1.2 08/25/18 05:00 APTT 29.9 Seconds (25.6-37.1) 08/25/18 05:00 - Constitutional Appears: No Acute Distress - Eye Exam Eye Exam: Conjunctival injection - ENT Exam ENT Exam: Mucous Membranes Moist - Neck Exam Neck Exam: absent: Lymphadenopathy - Respiratory Exam Respiratory Exam: Rhonchi. absent: Chest Wall Tenderness - Cardiovascular Exam Cardiovascular Exam: absent: Gallop, JVD, Rubs - GI/Abdominal Exam GI & Abdominal Exam: Soft, Normal Bowel Sounds - Extremities Exam Extremities Exam: absent: Calf Tenderness - Back Exam Back Exam: absent: CVA tenderness (L), CVA tenderness (R) - Neurological Exam Neurological Exam: Awake - Skin Skin Exam: absent: Cyanosis Assessment and Plan (1) [place] (acute kidney injury) Assessment & Plan: acute kidney injury related to multifactorial including sepsis and improving serum creatinine in the range of 1.1-1.2 Respiratory failure patient remain on respirator Sepsis [place] hypernatremia,corrected 148 hypokalemia corrected 4.1 plan respiratory management Avoid hypotension Antibiotics as per renal doses adjustment Status bilateral thoracocentesis on September 06, removal 800 cc from each side Worsening hypernatremia we will give water through the NG tube 200 cc every 4 hours Status: Acute (2) Acute gastroenteritis Status: Resolved (3) Anginal equivalent Status: Acute
[2018-09-09] MEDS ORDERED: Sodium Chloride 3% for Inhalation 4 ML VIAL.NEB IH PRN (10:11)
[2018-09-09 10:32] LABS: VENOUS BLOOD GAS BASE EXCESS 9.6 mmol/L (0.0-2.0); VENOUS BLOOD GAS PCO2 46 mmHg (40-60); VENOUS BLOOD GAS PO2 45 mm/Hg (30-55); VENOUS BLOOD PH 7.48 (7.32-7.43)
[2018-09-09] MEDS: Cefepime 2 GM in Sodium Chloride 0.9% 100 ML IVPB SCH ×2 (10:44→20:23)
--- NOTE | 2018-09-09 12:42 | CP.PCM.PN ---
Subjective - Date & Time of Evaluation Date of Evaluation: 09/09/18 Time of Evaluation: 11:00 - Subjective Subjective: F/U respiratory failure. alert, intubated Objective - Vital Signs/Intake and Output Vital Signs (last 24 hours): Temp Pulse Resp BP Pulse Ox 99.0 F 85 19 142/73 100 09/09/18 12:00 09/09/18 12:00 09/09/18 12:00 09/09/18 12:00 09/09/18 12:00 Intake and Output: 09/09/18 09/09/18 06:59 18:59 Intake Total 100 450 Output Total 2100 Balance -2000 450 - Medications Medications: Current Medications Acetaminophen (Tylenol 650mg/20.3ml Solution Ud) 650 mg NG Q6 PRN PRN Reason: Temperature Last Admin: 08/25/18 01:06 Dose: 650 mg Acetaminophen (Tylenol 650mg/20.3ml Solution Ud) 650 mg PO Q6 PRN PRN Reason: Pain, Mild (1-3) Last Admin: 09/02/18 05:54 Dose: 650 mg Albuterol/Ipratropium (Duoneb 3 Mg/0.5 Mg (3 Ml) Ud) 3 ml INH RQ6 [facility] Last Admin: 09/09/18 07:49 Dose: Not Given Amlodipine Besylate (Norvasc) 5 mg PO Q12 [facility] Last Admin: 09/09/18 08:30 Dose: 5 mg Aspirin (Aspirin Chewable) 81 mg NG DAILY [facility] Last Admin: 09/09/18 10:17 Dose: 81 mg Dimethicone (Proshield Plus Skin Protectant) 1 applic TOP Q8 [facility] Last Admin: 09/09/18 08:31 Dose: 1 applic Furosemide (Lasix) 60 mg IV DAILY [facility] Hydralazine HCl (Apresoline) 10 mg IV Q6 PRN PRN Reason: Systolic Blood Pressure Last Admin: 09/08/18 15:49 Dose: 10 mg Metronidazole (Flagyl 500mg/100ml Ns) 100 mls @ 100 mls/hr IVPB Q8 [facility]; Protocol Last Admin: 09/09/18 08:25 Dose: 100 mls/hr Cefepime HCl 2 gm/ Sodium (Chloride) 100 mls @ 100 mls/hr IVPB Q12 [facility]; Protocol Last Admin: 09/09/18 10:44 Dose: 100 mls/hr Insulin Detemir (Levemir) 20 units SC DAILY [facility] Last Admin: 09/09/18 08:30 Dose: 20 units Insulin Human Lispro (Humalog) [address] [facility]; Protocol Last Admin: 09/09/18 12:02 Dose: 4 unit Meclizine HCl (Antivert) 12.5 mg PO DAILY [facility] Last Admin: 08/18/18 09:27 Dose: 12.5 mg Metformin HCl (Glucophage) 1,000 mg PO BID [facility] Last Admin: 08/16/18 09:34 Dose: Not Given Methylprednisolone (Solu-Medrol) 60 mg IV Q6H [facility] Last Admin: 09/09/18 08:32 Dose: 60 mg Metoprolol Tartrate (Lopressor) 25 mg PO Q8 [facility] Last Admin: 09/08/18 16:51 Dose: Not Given Metoprolol Tartrate (Lopressor) 5 mg IVP Q6 [facility] Last Admin: 09/09/18 10:17 Dose: 5 mg Nystatin (Nystop Topical Powder) 1 applic TOP TID [facility] Last Admin: 09/09/18 12:04 Dose: 1 applic Pantoprazole Sodium (Protonix Susp) 40 mg NG DAILY [facility] Last Admin: 09/09/18 08:31 Dose: 40 mg Sucralfate (Carafate Oral Susp) [address] [facility] Last Admin: 08/18/18 22:07 Dose: 1 gm Vancomycin HCl (Vancocin (Oral/Rectal Use)) 250 mg PO Q8 [facility]; Protocol Last Admin: 09/09/18 08:34 Dose: 250 mg - Labs Labs: 09/09/18 04:25 09/09/18 04:25 PT 13.3 Seconds (9.8-13.1) H 08/25/18 05:00 INR 1.2 08/25/18 05:00 APTT 29.9 Seconds (25.6-37.1) 08/25/18 05:00 - Constitutional Appears: In Acute Distress - Head Exam Head Exam: NORMAL INSPECTION - Eye Exam Eye Exam: PERRL - ENT Exam Additional comments: Intubated - Neck Exam Neck Exam: Normal Inspection - Respiratory Exam Respiratory Exam: Decreased Breath Sounds (at bases), Rhonchi (at bases) - Cardiovascular Exam Cardiovascular Exam: REGULAR RHYTHM, Murmur (systolic) - GI/Abdominal Exam GI & Abdominal Exam: Soft, Normal Bowel Sounds - Extremities Exam Additional comments: edema - Neurological Exam Additional comments: Intubated, alert, moves all extremities - Skin Skin Exam: Warm Assessment and Plan (1) Acute respiratory failure Status: Resolved (2) Cardiac arrest Status: Resolved (3) Aspiration pneumonia Status: Acute (4) Pleural effusion Status: Acute (5) Atelectasis of both lungs Status: Acute (6) NSTEMI (non-ST elevated myocardial infarction) Status: Acute (7) CHF (congestive heart failure) Status: Acute (8) DVT (deep venous thrombosis) Status: Acute (9) Severe anemia Status: Resolved - Assessment and Plan (Free Text) Plan: f/u stat CT Chest with IV contrast , Patient also will have CT Abd/Pelvis. Patient was reintubated, unresolving PNA, Pt to have Lung Bx by FOB or VATS pending review of CT Chest, Patient on Rocephin, Vanco, Micafungin, SoluMedrol, DuoNeb Critical care time: 32 min.
[2018-09-09] MEDS ORDERED: Iohexol 240 (50 ml) PO ONE (13:26)
--- NOTE | 2018-09-09 13:58 | CP.PCM.CON ---
History of Present Illness - History of Present Illness History of Present Illness: events noted re-intubated restarted antibiotics recultured Review of Systems - Review of Systems All systems: reviewed and no additional remarkable complaints except Past Patient History - Past Medical History & Family History Past Medical History?: Yes Past Family History: Reviewed and not pertinent - Past Social History Smoking Status: Never Smoked Alcohol: None Drugs: Denies Home Situation {Lives}: With Family - CARDIAC Hx Cardiac Disorders: Yes Hx Hypertension: Yes Hx Pacemaker: No - PULMONARY Hx Respiratory Disorders: No - NEUROLOGICAL Hx Neurological Disorder: Yes Hx Dizziness: Yes - HEENT Hx HEENT Problems: No - RENAL Hx Chronic Kidney Disease: No - ENDOCRINE/METABOLIC Hx Endocrine Disorders: Yes Hx Diabetes Mellitus Type 2: Yes - HEMATOLOGICAL/ONCOLOGICAL Hx Blood Disorders: No Hx Cancer: No - INTEGUMENTARY Hx Dermatological Problems: No - MUSCULOSKELETAL/RHEUMATOLOGICAL Hx Musculoskeletal Disorders: Yes Hx Falls: Yes - GASTROINTESTINAL Hx Gastrointestinal Disorders: Yes Hx Gastritis: Yes - GENITOURINARY/GYNECOLOGICAL Hx Genitourinary Disorders: No - PSYCHIATRIC Hx Psychophysiologic Disorder: No Hx Substance Use: No - SURGICAL HISTORY Hx Surgeries: No Hx Mastectomy: No - ANESTHESIA Hx Anesthesia: No Meds Allergies/Adverse Reactions: Allergies Allergy/AdvReac Type Severity Reaction Status Date / Time No Known Allergies Allergy Verified 09/20/17 08:57 - Medications Medications: Current Medications Acetaminophen (Tylenol 650mg/20.3ml Solution Ud) 650 mg NG Q6 PRN PRN Reason: Temperature Last Admin: 08/25/18 01:06 Dose: 650 mg Acetaminophen (Tylenol 650mg/20.3ml Solution Ud) 650 mg PO Q6 PRN PRN Reason: Pain, Mild (1-3) Last Admin: 09/02/18 05:54 Dose: 650 mg Albuterol/Ipratropium (Duoneb 3 Mg/0.5 Mg (3 Ml) Ud) 3 ml INH RQ6 [facility] Last Admin: 09/09/18 13:12 Dose: 3 ml Amlodipine Besylate (Norvasc) 5 mg PO Q12 [facility] Last Admin: 09/09/18 08:30 Dose: 5 mg Aspirin (Aspirin Chewable) 81 mg NG DAILY [facility] Last Admin: 09/09/18 10:17 Dose: 81 mg Dimethicone (Proshield Plus Skin Protectant) 1 applic TOP Q8 [facility] Last Admin: 09/09/18 08:31 Dose: 1 applic Furosemide (Lasix) 60 mg IV DAILY [facility] Hydralazine HCl (Apresoline) 10 mg IV Q6 PRN PRN Reason: Systolic Blood Pressure Last Admin: 09/08/18 15:49 Dose: 10 mg Metronidazole (Flagyl 500mg/100ml Ns) 100 mls @ 100 mls/hr IVPB Q8 [facility]; Protocol Last Admin: 09/09/18 08:25 Dose: 100 mls/hr Cefepime HCl 2 gm/ Sodium (Chloride) 100 mls @ 100 mls/hr IVPB Q12 [facility]; Protocol Last Admin: 09/09/18 10:44 Dose: 100 mls/hr Insulin Detemir (Levemir) 20 units SC DAILY [facility] Last Admin: 09/09/18 08:30 Dose: 20 units Insulin Human Lispro (Humalog) 0 units SC [facility]; Protocol Last Admin: 09/09/18 12:02 Dose: 4 unit Meclizine HCl (Antivert) 12.5 mg PO DAILY [facility] Last Admin: 08/18/18 09:27 Dose: 12.5 mg Metformin HCl (Glucophage) 1,000 mg PO BID [facility] Last Admin: 08/16/18 09:34 Dose: Not Given Methylprednisolone (Solu-Medrol) 60 mg IV Q6H [facility] Last Admin: 09/09/18 08:32 Dose: 60 mg Metoprolol Tartrate (Lopressor) 25 mg PO Q8 [facility] Last Admin: 09/08/18 16:51 Dose: Not Given Metoprolol Tartrate (Lopressor) 5 mg IVP Q6 [facility] Last Admin: 09/09/18 10:17 Dose: 5 mg Nystatin (Nystop Topical Powder) 1 applic TOP TID [facility] Last Admin: 09/09/18 12:04 Dose: 1 applic Pantoprazole Sodium (Protonix Susp) 40 mg NG DAILY [facility] Last Admin: 09/09/18 08:31 Dose: 40 mg Sucralfate (Carafate Oral Susp) 1 gm PO ACHS [facility] Last Admin: 08/18/18 22:07 Dose: 1 gm Vancomycin HCl (Vancocin (Oral/Rectal Use)) 250 mg PO Q8 [facility]; Protocol Last Admin: 09/09/18 08:34 Dose: 250 mg Physical Exam - Constitutional Appears: No Acute Distress, Cachectic, Chronically Ill - Head Exam Head Exam: ATRAUMATIC - Eye Exam Eye Exam: absent: Scleral icterus - ENT Exam ENT Exam: Mucous Membranes Dry - Neck Exam Neck exam: Negative for: Lymphadenopathy - Respiratory Exam Respiratory Exam: Decreased Breath Sounds - Cardiovascular Exam Cardiovascular Exam: REGULAR RHYTHM - GI/Abdominal Exam GI & Abdominal Exam: Diminished Bowel Sounds, Distended, Soft - Rectal Exam Rectal Exam: Deferred - Exam Exam: NORMAL INSPECTION - Extremities Exam Extremities exam: Positive for: pedal edema - Back Exam Back exam: absent: CVA tenderness (L), CVA tenderness (R) - Neurological Exam Neurological exam: Alert, CN II-XII Intact Results - Vital Signs Recent Vital Signs: Last Vital Signs Temp 99.0 F 09/09/18 12:00 Pulse 85 09/09/18 12:00 Resp 19 09/09/18 12:00 BP 142/73 09/09/18 12:00 Pulse Ox 100 09/09/18 12:00 - Labs Result Diagrams: 09/09/18 04:25 09/09/18 04:25 Labs: Laboratory Results - last 24 hr 09/08/18 09/08/18 09/08/18 15:45 16:46 21:00 WBC RBC Hgb Hct MCV MCH MCHC RDW Plt Count MPV Neut % (Auto) Lymph % (Auto) Hartley % (Auto) Eos % (Auto) Baso % (Auto) Neut # (Auto) Lymph # (Auto) Hartley # (Auto) Eos # (Auto) Baso # (Auto) Neutrophils % (Manual) Lymphocytes % (Manual) Monocytes % (Manual) Eosinophils % (Manual) Platelet Estimate Anisocytosis (manual) Macrocytosis (manual) Spherocytes Ovalocytes ESR pCO2 pO2 HCO3 ABG pH ABG Total CO2 ABG O2 Saturation ABG O2 Content ABG Base Excess ABG Hemoglobin ABG Carboxyhemoglobin POC ABG HHb (Measured) ABG Methemoglobin ABG O2 Capacity Masoud Test VBG pH VBG pCO2 VBG HCO3 VBG Total CO2 VBG O2 Sat (Calc) VBG Base Excess VBG Potassium A-a O2 Difference Hgb O2 Saturation Glucose Lactate Liter Flow Vent Mode Mechanical Rate FiO2 Tidal Volume PEEP Crit Value Called To Crit Value Called By Crit Value Read Back Blood Gas Notified Time Sodium Potassium Chloride Carbon Dioxide Anion Gap BUN Creatinine Est GFR ( Amer) Est GFR (Non-Af Amer) POC Glucose (mg/dL) 209 H 240 H Random Glucose Calcium Total Bilirubin AST ALT Alkaline Phosphatase C-React Prot High Sens NT-Pro-B Natriuret Pep Total Protein Albumin Globulin Albumin/Globulin Ratio Amylase Lipase Procalcitonin 0.09 L TSH 3rd Generation Venous Blood Potassium 09/08/18 09/09/18 09/09/18 23:44 01:04 04:25 WBC 10.7 RBC 4.10 Hgb 11.6 L Hct 35.2 MCV 85.8 MCH 28.3 MCHC 33.0 RDW 23.1 H Plt Count 319 MPV 7.9 Neut % (Auto) 92.8 H Lymph % (Auto) 3.2 L Hartley % (Auto) 3.8 Eos % (Auto) 0.1 Baso % (Auto) 0.1 Neut # (Auto) 10.0 H Lymph # (Auto) 0.3 L Hartley # (Auto) 0.4 Eos # (Auto) 0.0 Baso # (Auto) 0.0 Neutrophils % (Manual) 93 H Lymphocytes % (Manual) 4 L Monocytes % (Manual) 2 Eosinophils % (Manual) 1 Platelet Estimate Normal Anisocytosis (manual) Moderate Macrocytosis (manual) Slight Spherocytes Slight Ovalocytes Moderate ESR 75 H pCO2 34 L pO2 41 L* HCO3 29.6 H ABG pH 7.54 H ABG Total CO2 30.1 H ABG O2 Saturation 81.9 L ABG O2 Content 13.0 L ABG Base Excess 6.5 H ABG Hemoglobin 11.7 ABG Carboxyhemoglobin 1.9 H POC ABG HHb (Measured) 17.5 H ABG Methemoglobin 1.3 ABG O2 Capacity 15.9 L Masoud Test Yes VBG pH VBG pCO2 VBG HCO3 VBG Total CO2 VBG O2 Sat (Calc) VBG Base Excess VBG Potassium A-a O2 Difference 630.0 Hgb O2 Saturation 79.3 L Glucose Lactate Liter Flow 20 Vent Mode Mechanical Rate FiO2 100.0 Tidal Volume PEEP Crit Value Called To Kendy lovett rn Crit Value Called By Michell Crit Value Read Back Y Blood Gas Notified Time 2350 Sodium Potassium Chloride Carbon Dioxide Anion Gap BUN Creatinine Est GFR ( Amer) Est GFR (Non-Af Amer) POC Glucose (mg/dL) 380 H Random Glucose Calcium Total Bilirubin AST ALT Alkaline Phosphatase C-React Prot High Sens NT-Pro-B Natriuret Pep Total Protein Albumin Globulin Albumin/Globulin Ratio Amylase Lipase Procalcitonin TSH 3rd Generation Venous Blood Potassium 09/09/18 09/09/18 09/09/18 04:25 04:25 04:37 WBC RBC Hgb Hct MCV MCH MCHC RDW Plt Count MPV Neut % (Auto) Lymph % (Auto) Hartley % (Auto) Eos % (Auto) Baso % (Auto) Neut # (Auto) Lymph # (Auto) Hartley # (Auto) Eos # (Auto) Baso # (Auto) Neutrophils % (Manual) Lymphocytes % (Manual) Monocytes % (Manual) Eosinophils % (Manual) Platelet Estimate Anisocytosis (manual) Macrocytosis (manual) Spherocytes Ovalocytes ESR pCO2 39 pO2 58 L HCO3 28.7 H ABG pH 7.48 H ABG Total CO2 30.2 H ABG O2 Saturation 92.3 L ABG O2 Content 14.9 L ABG Base Excess 5.1 H ABG Hemoglobin 11.8 ABG Carboxyhemoglobin 1.6 H POC ABG HHb (Measured) 7.5 H ABG Methemoglobin 1.3 ABG O2 Capacity 16.1 Masoud Test Yes VBG pH VBG pCO2 VBG HCO3 VBG Total CO2 VBG O2 Sat (Calc) VBG Base Excess VBG Potassium A-a O2 Difference 606.0 Hgb O2 Saturation 89.6 L Glucose Lactate Liter Flow Vent Mode A/c Mechanical Rate 14 FiO2 100.0 Tidal Volume 400 PEEP 7 Crit Value Called To Crit Value Called By Crit Value Read Back Blood Gas Notified Time Sodium 149 H Potassium 4.0 Chloride 108 H Carbon Dioxide 29 Anion Gap 16 BUN 47 H Creatinine 1.2 Est GFR ( Amer) 53 Est GFR (Non-Af Amer) 44 POC Glucose (mg/dL) Random Glucose 382 H Calcium 8.0 L Total Bilirubin 1.1 AST 39 H D ALT 32 Alkaline Phosphatase 115 C-React Prot High Sens NT-Pro-B Natriuret Pep 94292 H Total Protein 6.3 Albumin 3.1 L Globulin 3.2 Albumin/Globulin Ratio 1.0 Amylase 108 Lipase 238 Procalcitonin 0.09 L TSH 3rd Generation 1.00 Venous Blood Potassium 09/09/18 09/09/18 09/09/18 05:00 06:25 08:49 WBC RBC Hgb Hct MCV MCH MCHC RDW Plt Count MPV Neut % (Auto) Lymph % (Auto) Hartley % (Auto) Eos % (Auto) Baso % (Auto) Neut # (Auto) Lymph # (Auto) Hartley # (Auto) Eos # (Auto) Baso # (Auto) Neutrophils % (Manual) Lymphocytes % (Manual) Monocytes % (Manual) Eosinophils % (Manual) Platelet Estimate Anisocytosis (manual) Macrocytosis (manual) Spherocytes Ovalocytes ESR pCO2 pO2 45 HCO3 ABG pH ABG Total CO2 ABG O2 Saturation ABG O2 Content ABG Base Excess ABG Hemoglobin ABG Carboxyhemoglobin POC ABG HHb (Measured) ABG Methemoglobin ABG O2 Capacity Masoud Test VBG pH 7.48 H VBG pCO2 46 VBG HCO3 32.0 VBG Total CO2 35.7 H VBG O2 Sat (Calc) 82.6 H VBG Base Excess 9.6 H VBG Potassium 3.7 A-a O2 Difference Hgb O2 Saturation Glucose 342 H Lactate 3.4 H Liter Flow Vent Mode Mechanical Rate FiO2 100.0 Tidal Volume PEEP 7 Crit Value Called To Crit Value Called By Crit Value Read Back Blood Gas Notified Time Sodium 151.0 H Potassium Chloride 113.0 H Carbon Dioxide Anion Gap BUN Creatinine Est GFR ( Amer) Est GFR (Non-Af Amer) POC Glucose (mg/dL) 345 H Random Glucose Calcium Total Bilirubin AST ALT Alkaline Phosphatase C-React Prot High Sens > 15.00 H NT-Pro-B Natriuret Pep Total Protein Albumin Globulin Albumin/Globulin Ratio Amylase Lipase Procalcitonin TSH 3rd Generation Venous Blood Potassium 3.7 09/09/18 11:45 WBC RBC Hgb Hct MCV MCH MCHC RDW Plt Count MPV Neut % (Auto) Lymph % (Auto) Hartley % (Auto) Eos % (Auto) Baso % (Auto) Neut # (Auto) Lymph # (Auto) Hartley # (Auto) Eos # (Auto) Baso # (Auto) Neutrophils % (Manual) Lymphocytes % (Manual) Monocytes % (Manual) Eosinophils % (Manual) Platelet Estimate Anisocytosis (manual) Macrocytosis (manual) Spherocytes Ovalocytes ESR pCO2 pO2 HCO3 ABG pH ABG Total CO2 ABG O2 Saturation ABG O2 Content ABG Base Excess ABG Hemoglobin ABG Carboxyhemoglobin POC ABG HHb (Measured) ABG Methemoglobin ABG O2 Capacity Masoud Test VBG pH VBG pCO2 VBG HCO3 VBG Total CO2 VBG O2 Sat (Calc) VBG Base Excess VBG Potassium A-a O2 Difference Hgb O2 Saturation Glucose Lactate Liter Flow Vent Mode Mechanical Rate FiO2 Tidal Volume PEEP Crit Value Called To Crit Value Called By Crit Value Read Back Blood Gas Notified Time Sodium Potassium Chloride Carbon Dioxide Anion Gap BUN Creatinine Est GFR ( Amer) Est GFR (Non-Af Amer) POC Glucose (mg/dL) 256 H Random Glucose Calcium Total Bilirubin AST ALT Alkaline Phosphatase C-React Prot High Sens NT-Pro-B Natriuret Pep Total Protein Albumin Globulin Albumin/Globulin Ratio Amylase Lipase Procalcitonin TSH 3rd Generation Venous Blood Potassium Assessment & Plan (1) Dehydration Status: Acute (2) NSTEMI (non-ST elevated myocardial infarction) Status: Resolved (3) Nausea & vomiting Status: Resolved (4) Type 2 diabetes mellitus with hyperglycemia Status: Chronic Priority: Medium (5) Abdominal pain Status: Acute (6) Gallbladder disease Status: Acute (7) Pneumonia Status: Acute - Assessment and Plan (Free Text) Assessment: restarted IV rx poor prognosis
--- NOTE | 2018-09-09 15:18 | CARD ---
APPROVED REPORT Date of service: 09/08/2018 EKG Measurement Heart [id number] <Conclusion> Sinus tachycardia Left ventricular hypertrophy with repolarization abnormality Cannot rule out Septal infarct, age undetermined Nonspecific ST changes Abnormal ECG
[2018-09-09] MEDS: Micafungin 100 MG in Sodium Chloride 0.9% 100 ML IVPB SCH (15:40)
[2018-09-09] MEDS ORDERED: Sodium Chloride 0.9% 50 ML IV ONE (16:02)
[2018-09-09] MEDS ORDERED: Iodixanol 320 MG/ML 100 ML BOTTLE IV ONE (16:02)
--- NOTE | 2018-09-09 17:31 | CT ---
Date of service: 09/09/2018 PROCEDURE: CT Chest, Abdomen and Pelvis with intravenous contrast HISTORY: respiratory failure, PNA COMPARISON: Comparison is made to the previous CT of the abdomen and pelvis dated 08/13/[address] of the chest dated 09/01/2018 TECHNIQUE: IV dose administered: 95 mL of Visipaque 320 intravenously. Axial and reformatted coronal and sagittal CT images of the chest abdomen and pelvis were obtained after IV and oral contrast administration. Radiation dose: Total exam DLP = 939.48 mGy-cm. This CT exam was performed using one or more of the following dose reduction techniques: Automated exposure control, adjustment of the mA and/or kV according to patient size, and/or use of iterative reconstruction technique. FINDINGS: CT CHEST WITH CONTRAST: LUNGS: Again noted are patchy foci of airspace consolidation at the right middle lobe and bilateral lower lobes decreased in size compared to the previous CT. Patchy scattered foci of ground-glass opacities are also noted in the upper lobes. Air bronchogram seen in the mid and lower portion of the lungs. Findings again may represent aspiration or multifocal pneumonia and pneumonitis. The ET tube is seen at appropriate position. MEDIASTINUM: Unremarkable. Normal caliber aorta and pulmonary arterial trunk. No aortic dissection. Normal size heart. LYMPH NODES: Unremarkable. PLEURA: There are moderate to large bilateral pleural effusions. BONES: Diffuse osteopenia is noted. No evidence of destructive bony lesion. OTHER FINDINGS: None. CT ABDOMEN AND PELVIS: LIVER: Mild hepatomegaly is again noted. No evidence of suspicious mass in the liver. The portal vein is patent. GALLBLADDER AND BILE DUCTS: Gallstones are noted without evidence of acute cholecystitis. PANCREAS: Unremarkable. No gross lesion or ductal dilatation. SPLEEN: Unremarkable. ADRENALS: Unremarkable. No mass. KIDNEYS AND URETERS: Unremarkable. No hydronephrosis. No solid mass. VASCULATURE: Scattered foci of atherosclerotic calcification in abdominal aorta and iliac arteries. Unremarkable. No aortic aneurysm. BOWEL: Unremarkable. No obstruction. No gross mural thickening. The NG tube seen extending to the stomach. The stomach is not distended. There is a rectal tube in place. APPENDIX: No evidence of appendicitis. PERITONEUM: Unremarkable. No free fluid. No free air. LYMPH NODES: Unremarkable. No enlarged lymph nodes. BLADDER: Jin catheter in the bladder. The bladder is not distended. REPRODUCTIVE: Unremarkable. BONES: No acute fracture. OTHER FINDINGS: None. IMPRESSION: Interval mild improvement in upper lobe of the lungs since the previous exam. Persistent airspace opacities at the mid and lower portion of the lungs. Patchy ground-glass opacities again noted. Moderate to large pleural effusions. No evidence of acute pathology in the abdomen and pelvis. Mild anasarca.
--- NOTE | 2018-09-09 20:32 | CP.PCM.PN ---
Subjective - Date & Time of Evaluation Date of Evaluation: 09/09/18 Time of Evaluation: 20:32 - Subjective Subjective: SEEN AND EXAMINED. INTUBATED AND SEDATED. HR AND BP NML CT RESULTS NOTED. Objective - Vital Signs/Intake and Output Vital Signs (last 24 hours): Temp Pulse Resp BP Pulse Ox 98.3 F 123 H 19 156/86 H 100 09/09/18 20:00 09/09/18 20:00 09/09/18 20:00 09/09/18 20:00 09/09/18 20:00 Intake and Output: 09/09/18 09/10/18 18:59 06:59 Intake Total 900 Output Total 700 Balance 200 - Medications Medications: Current Medications Acetaminophen (Tylenol 650mg/20.3ml Solution Ud) 650 mg NG Q6 PRN PRN Reason: Temperature Last Admin: 08/25/18 01:06 Dose: 650 mg Acetaminophen (Tylenol 650mg/20.3ml Solution Ud) 650 mg PO Q6 PRN PRN Reason: Pain, Mild (1-3) Last Admin: 09/02/18 05:54 Dose: 650 mg Albuterol/Ipratropium (Duoneb 3 Mg/0.5 Mg (3 Ml) Ud) 3 ml INH RQ6 [facility] Last Admin: 09/09/18 19:02 Dose: 3 ml Aspirin (Aspirin Chewable) 81 mg NG DAILY [facility] Last Admin: 09/09/18 10:17 Dose: 81 mg Dimethicone (Proshield Plus Skin Protectant) 1 applic TOP Q8 [facility] Last Admin: 09/09/18 17:06 Dose: 1 applic Furosemide (Lasix) 60 mg IV DAILY [facility] Hydralazine HCl (Apresoline) 10 mg IV Q6 PRN PRN Reason: Systolic Blood Pressure Last Admin: 09/08/18 15:49 Dose: 10 mg Cefepime HCl 2 gm/ Sodium (Chloride) 100 mls @ 100 mls/hr IVPB Q12 [facility]; Protocol Last Admin: 09/09/18 20:23 Dose: 100 mls/hr Micafungin Sodium 100 mg/ (Sodium Chloride) 100 mls @ 100 mls/hr IVPB DAILY [facility]; Protocol Last Admin: 09/09/18 15:40 Dose: 100 mls/hr Vancomycin HCl 750 mg/ Sodium (Chloride) 250 mls @ 166.667 mls/hr IVPB DAILY [facility]; Protocol Insulin Detemir (Levemir) 20 units SC DAILY [facility] Last Admin: 09/09/18 08:30 Dose: 20 units Insulin Human Lispro (Humalog) 0 units SC ACHS [facility]; Protocol Last Admin: 09/09/18 17:01 Dose: 2 unit Lorazepam (Ativan) 0.5 mg IVP Q6 PRN PRN Reason: Agitation Last Admin: 09/09/18 14:46 Dose: 0.5 mg Meclizine HCl (Antivert) 12.5 mg PO DAILY [facility] Last Admin: 08/18/18 09:27 Dose: 12.5 mg Metformin HCl (Glucophage) 1,000 mg PO BID [facility] Last Admin: 08/16/18 09:34 Dose: Not Given Methylprednisolone (Solu-Medrol) 60 mg IV Q6H [facility] Last Admin: 09/09/18 15:39 Dose: 60 mg Metoprolol Tartrate (Lopressor) 25 mg PO Q6 [facility] Morphine Sulfate (Morphine) 1 mg IVP Q6 PRN PRN Reason: Agitation Last Admin: 09/09/18 14:46 Dose: 1 mg Nystatin (Nystop Topical Powder) 1 applic TOP TID [facility] Last Admin: 09/09/18 17:06 Dose: 1 applic Pantoprazole Sodium (Protonix Susp) 40 mg NG DAILY [facility] Last Admin: 09/09/18 08:31 Dose: 40 mg Sucralfate (Carafate Oral Susp) 1 gm PO [facility] Last Admin: 08/18/18 22:07 Dose: 1 gm - Labs Labs: 09/09/18 04:25 09/09/18 04:25 PT 13.3 Seconds (9.8-13.1) H 08/25/18 05:00 INR 1.2 08/25/18 05:00 APTT 29.9 Seconds (25.6-37.1) 08/25/18 05:00 Assessment and Plan (1) AURORA (acute kidney injury) Status: Acute (2) Acute respiratory failure Status: Resolved (3) Mental status alteration Status: Acute (4) NSTEMI (non-ST elevated myocardial infarction) Status: Resolved (5) Abnormal EKG Status: Chronic (6) Type 2 diabetes mellitus with hyperglycemia Status: Chronic (7) Hypertension Status: Chronic (8) DVT (deep venous thrombosis) Status: Acute (9) Severe anemia Status: Resolved (10) Nausea & vomiting Status: Resolved (11) Acute hypernatremia Status: Resolved - Assessment and Plan (Free Text) Plan: RESULTS OF CT - MULTILOBAR INFILTRATES WITH BL RECURRENT PLEURAL EFFUSIONS. GIVEN MULTI-SYSTEM VASCULAR INVOLVEMENT (HEART, BRAIN, GI, LIKELY LUNGS) I SUSPECT VASCULITIS WITH CAPILLARY LEAK SYNDROME IN LUNGS LEADING TO EFFUSIONS. PT IS CLINICALLY INTRAVASCULARLY DRY. ELEVATED PAP PRESSURES WILL INCREASE BNP, LUNG HAS MULTIPLE ETIOLOGIES FOR ELEVATED PAP. ESR AND CRP ARE ELEVATED. ESR IMPROVING WITH STEROIDS (POSSIBLY THE REASON FOR DECREASED VASCULAR MARKING ON CXR). 45 MIN I/O BALANCE ABOUT 500 POSITIVE IN LAST 10 DAYS.
[2018-09-10] MEDS: Proshield Plus GEL TOP SCH ×3 (01:00→17:03)
[2018-09-10] MEDS: Albuterol-Ipratrop 3 mg / 0.5 (3 ml) UD INH SCH ×4 (02:52→19:11)
[2018-09-10 04:10] LABS: ABG ALLEN TEST YES; ARTERIAL BLOOD GAS HCO3 32.6 mmol/L (21-28); ARTERIAL BLOOD GAS HEMOGLOBIN 10.2 g/dL (11.7-17.4); ARTERIAL BLOOD GAS O2 CAPACITY 14.1 mL/dL (16-24); ARTERIAL BLOOD GAS O2 CONTENT 13.8 ML/dL (15-23); ARTERIAL BLOOD GAS O2 SAT 98.2 % (95-98); ARTERIAL BLOOD GAS PCO2 41 mm/Hg (35-45); ARTERIAL BLOOD GAS PH 7.52 (7.35-7.45); ARTERIAL BLOOD GAS PO2 74 mm/Hg (80-100); ARTERIAL BLOOD GAS TCO2 34.8 mmol/L (22-28)
[2018-09-10] MEDS: Insulin Lispro (humaLOG) 100 Units/ml Inj SC SCH ×4 (06:36→21:11)
[2018-09-10 07:11] LABS: HEMOGLOBIN 10.2 g/dL (12.0-16.0); MEAN CELL VOLUME 87.1 fl (81.0-99.0); MEAN CORPUSCULAR HGB CONC 32.1 g/dL (33.0-37.0); RBC 3.66 Mil/uL (3.80-5.20); RED CELL DISTRIBUTION WIDTH 23.2 % (11.5-14.5); WHITE BLOOD COUNT 13.6 K/uL (4.8-10.8)
[2018-09-10 07:26] LABS: ALBUMIN 2.9 g/dL (3.5-5.0); CALCIUM 7.7 mg/dL (8.4-10.2)
--- NOTE | 2018-09-10 08:36 | RAD ---
Date of service: 09/10/2018 HISTORY: Follow up pulmonary infiltrate COMPARISON: Portable chest 09/09/2018. FINDINGS: LUNGS: Endotracheal and nasogastric tubes are not significantly changed in position as well as left PICC insertion. Further reduction in infiltrates is appreciate including bilateral perihilar region and inferior right lung zone. PLEURA: No pneumothorax bilaterally. No right pleural effusion. Trace left pleural effusion not excluded. CARDIOVASCULAR: Calcific atherosclerotic changes are seen related to the thoracic aorta. Cardiomediastinal silhouette appearance stable. Diminishing pulmonary vascular congestion. OSSEOUS STRUCTURES: No significant abnormalities. VISUALIZED UPPER ABDOMEN: Normal. OTHER FINDINGS: None. IMPRESSION: Improving bilateral perihilar and right basilar opacity and likely pulmonary vascular congestion as well. Trace left pleural effusion not excluded. Tubes and catheters as discussed above.
[2018-09-10] MEDS: Insulin Detemir 100 Units/ml Inj SC SCH (09:23)
[2018-09-10] MEDS: Micafungin 100 MG in Sodium Chloride 0.9% 100 ML IVPB SCH (09:24)
[2018-09-10] MEDS: Pantoprazole 40 mg Susp UD NG SCH (09:25)
[2018-09-10] MEDS: Cefepime 2 GM in Sodium Chloride 0.9% 100 ML IVPB SCH ×2 (09:28→21:08)
[2018-09-10] MEDS: Enoxaparin 80 mg Syringe SC SCH (12:19)
--- NOTE | 2018-09-10 13:57 | CP.PCM.PN ---
Subjective - Subjective Subjective: intubated, agitated earlier, sedated, minimal response to tactil stimuli Objective - Vital Signs/Intake and Output Vital Signs (last 24 hours): Temp Pulse Resp BP Pulse Ox 99.6 F 87 17 139/60 100 09/10/18 12:00 09/10/18 12:00 09/10/18 12:00 09/10/18 12:00 09/10/18 12:00 Intake and Output: 09/10/18 09/10/18 06:59 18:59 Intake Total 847 900 Output Total 750 400 Balance 97 500 - Medications Medications: Current Medications Acetaminophen (Tylenol 650mg/20.3ml Solution Ud) 650 mg NG Q6 PRN PRN Reason: Temperature Last Admin: 08/25/18 01:06 Dose: 650 mg Acetaminophen (Tylenol 650mg/20.3ml Solution Ud) 650 mg PO Q6 PRN PRN Reason: Pain, Mild (1-3) Last Admin: 09/02/18 05:54 Dose: 650 mg Albuterol/Ipratropium (Duoneb 3 Mg/0.5 Mg (3 Ml) Ud) 3 ml INH RQ6 [facility] Last Admin: 09/10/18 13:17 Dose: 3 ml Aspirin (Aspirin Chewable) 81 mg NG DAILY [facility] Last Admin: 09/10/18 09:28 Dose: 81 mg Dimethicone (Proshield Plus Skin Protectant) 1 applic TOP Q8 [facility] Last Admin: 09/10/18 09:25 Dose: 1 applic Enoxaparin Sodium (Lovenox) 70 mg SC DAILY [facility]; Protocol Last Admin: 09/10/18 12:19 Dose: 70 mg Furosemide (Lasix) 60 mg IV DAILY [facility] Last Admin: 09/10/18 09:22 Dose: 60 mg Hydralazine HCl (Apresoline) 10 mg IV Q6 PRN PRN Reason: Systolic Blood Pressure Last Admin: 09/08/18 15:49 Dose: 10 mg Cefepime HCl 2 gm/ Sodium (Chloride) 100 mls @ 100 mls/hr IVPB Q12 [facility]; Protocol Last Admin: 09/10/18 09:28 Dose: 100 mls/hr Micafungin Sodium 100 mg/ (Sodium Chloride) 100 mls @ 100 mls/hr IVPB DAILY [facility]; Protocol Last Admin: 09/10/18 09:24 Dose: 100 mls/hr Vancomycin HCl 750 mg/ Sodium (Chloride) 250 mls @ 166.667 mls/hr IVPB DAILY [facility]; Protocol Last Admin: 09/10/18 09:26 Dose: 166.667 mls/hr Insulin Detemir (Levemir) 20 units SC DAILY [facility] Last Admin: 09/10/18 09:23 Dose: 20 units Insulin Human Lispro (Humalog) 0 units SC ACHS [facility]; Protocol Last Admin: 09/10/18 12:17 Dose: 4 unit Lorazepam (Ativan) 0.5 mg IVP Q6 PRN PRN Reason: Agitation Last Admin: 09/10/18 09:18 Dose: 0.5 mg Meclizine HCl (Antivert) 12.5 mg PO DAILY [facility] Last Admin: 08/18/18 09:27 Dose: 12.5 mg Metformin HCl (Glucophage) 1,000 mg PO BID [facility] Last Admin: 08/16/18 09:34 Dose: Not Given Methylprednisolone (Solu-Medrol) 60 mg IV Q6H [facility] Last Admin: 09/10/18 09:26 Dose: 60 mg Metoprolol Tartrate (Lopressor) 25 mg PO Q6 [facility] Last Admin: 09/10/18 09:24 Dose: 25 mg Morphine Sulfate (Morphine) 1 mg IVP Q6 PRN PRN Reason: Agitation Last Admin: 09/10/18 04:47 Dose: 1 mg Nystatin (Nystop Topical Powder) 1 applic TOP TID [facility] Last Admin: 09/10/18 12:18 Dose: 1 applic Pantoprazole Sodium (Protonix Susp) 40 mg NG DAILY [facility] Last Admin: 09/10/18 09:25 Dose: 40 mg Sucralfate (Carafate Oral Susp) 1 gm PO ACHS [facility] Last Admin: 08/18/18 22:07 Dose: 1 gm - Labs Labs: 09/10/18 05:30 09/10/18 05:30 PT 13.3 Seconds (9.8-13.1) H 08/25/18 05:00 INR 1.2 08/25/18 05:00 APTT 29.9 Seconds (25.6-37.1) 08/25/18 05:00 - Constitutional Appears: No Acute Distress - Head Exam Head Exam: NORMAL INSPECTION - Eye Exam Eye Exam: PERRL - ENT Exam Additional comments: intubated - Neck Exam Neck Exam: Normal Inspection - Respiratory Exam Respiratory Exam: Decreased Breath Sounds (at bases) - Cardiovascular Exam Cardiovascular Exam: REGULAR RHYTHM - GI/Abdominal Exam GI & Abdominal Exam: Soft, Normal Bowel Sounds - Extremities Exam Additional comments: edema - Neurological Exam Additional comments: intubated sedated, minimal response to tactil stimuli - Skin Skin Exam: Warm Assessment and Plan (1) Acute respiratory failure Status: Resolved (2) Cardiac arrest Status: Resolved (3) Aspiration pneumonia Status: Acute (4) Pleural effusion Status: Acute (5) Atelectasis of both lungs Status: Acute (6) NSTEMI (non-ST elevated myocardial infarction) Status: Acute (7) CHF (congestive heart failure) Status: Acute (8) DVT (deep venous thrombosis) Status: Acute (9) Severe anemia Status: Resolved - Assessment and Plan (Free Text) Plan: CT Chest recurrent moderate to large B/L effusions, B/L infiltrates, asp PNA, improved upper Lobes infiltrates, Patient to have B/L Pigtail insertion by IR, if unable to wean there after may be candidate for Tracheostomy, PEG, also consideration for Lung Bx if no improvement of PNA, continue DuoNeb, Solu- Medrol and current Atb cooverage, Critical care time: 33 min.
--- NOTE | 2018-09-10 20:45 | PN ---
DATE: 09/10/2018 CRITICAL CARE PROGRESS NOTE LOCATION: ICU, Bed #434. TIME SPENT: 35 minutes. SUBJECTIVE: The patient is seen and evaluated at the bedside. Past medical, surgical, family and social history noted. Clinical course since admission reviewed. HISTORY OF PRESENT ILLNESS: This is a 73-year-old female, admitted to ICU, status post resuscitation from a Code Blue/cardiac arrest. The patient's video-assisted EEG showed no seizure activity, extubated on 08/30/2018; failed extubation, re-intubated on 09/01/2018. Recent CAT scan and chest x-ray showed moderate to large bilateral pleural effusion, status post thoracentesis 600 mL each side of pleural fluid consistent with transudate, extubated on 09/08/2018 and re-intubated on 09/09/2018. Currently on AC/PRBC, rate of 40, tidal volume of 400, FiO2 of 40%, PEEP of 5, observed rate of 22, exhaled tidal volume 440, minute ventilation 9.5 liters, oxygen saturation 99%, end-tidal CO2 of 14. Received Ativan early this morning because of the restlessness. PHYSICAL EXAMINATION: VITAL SIGNS: Temperature 100, pulse 87, blood pressure 119/56, mean arterial pressure 77, respiratory rate of 14. Intake 1747, output of 1450, positive balance of 297. Weight 162 pounds. HEAD, EYES, EARS, NOSE AND THROAT: No icterus. No gaze preference. Pupils equal, round, and reactive to light. NECK: No jugular venous distention. No carotid bruit. Endotracheal tube in place. CHEST: Bilateral breath sounds, diminished in intensity, bilateral crepitations. Bilateral scattered rhonchi. HEART: Rhythm regular. S1 and S2 normal. ABDOMEN: Soft. Mild distention. Rectal tube in place with liquid stools. EXTREMITIES: 1+ edema. No calf tenderness. No palpable cord. NEUROLOGIC: Intubated, on mechanical ventilation, reportedly alert and awake, able to follow simple commands. SKIN: Without rash. CURRENT MEDICATIONS: Tylenol 650 mg every 6 hours p.r.n., albuterol/Atrovent inhalation 3 mL via nebulizer every 6 hours, aspirin 81 mg daily, cefepime 2 g IV every 12 hours., Lovenox 70 mg subcutaneous daily, Lasix 60 mg IV daily, hydralazine 10 mg IV every 6 hours p.r.n. insulin Levemir 20 units subcutaneous daily, Humalog before meals and at bedtime, Ativan 0.5 mL IV every 6 hours p.r.n., Antivert 12.5 mg p.o. daily, metformin 1000 mg p.o. b.i.d., Solu-Medrol 60 mg IV every 6 hours., Lopressor 25 mg p.o. every 6 hours, micafungin 100 mg IV daily, nystatin one application topically three times daily, Protonix 40 mg daily, vancomycin 750 mg IV daily. LABORATORY DATA WBC 13.6, hemoglobin 10.2, hematocrit 31.9, platelet count of 240. ABG, pH 7.52, pCO2 of 41, pO2 of 74, saturation 98.2, FiO2 40%, AC 40, tidal 400, PEEP of 7. SMA-7; sodium 149, potassium 3.5, chloride of 109, CO2 of 30, blood urea nitrogen 54, creatinine 1.3, lactic acid 2.3, calcium 7.7, total bilirubin 0.7, AST 45, ALT 31, alkaline phosphatase 101, total protein 5.8, albumin 2.9. Urinalysis on 09/02/2018; leukocytes esterase large, rbc 7, wbc 15. Pleural fluid, total cell count 100 with 35 neutrophils, 22 lymphocytes, and 44 monocytes, glucose 315, total protein less than 2, LDH 303. Stool for occult blood positive. Immunology; INNA negative, rheumatoid factor pending, C-ANCA pending. P-ANCA pending. Stool for Clostridium difficile antigen and antibody negative. Urine Legionella antigen negative. Microbiology, urine culture positive for yeast fungal culture. Pleural fluid fungal culture, no fungal elements seen. Blood culture had no growth after 5 days. Sputum culture, yeast species. Staph aureus and staph coagulase in blood culture drawn on 08/24/2018. Chest x-ray done this morning, bilateral perihilar and right basilar opacity, likely pulmonary vascular congestion. Trace left pleural effusion. Endotracheal tube in place. No pneumothorax. IMPRESSION: 1. Neurologic: Status post subacute infarct as documented on 08/23/2018. CT head on 08/27/2018 is normal, status post cardiopulmonary resuscitation. No significant improvement in the mental status, suspect anoxic brain injury. Video-assisted EEG showed no acute abnormality including seizure. 2. Cardiac: Echo with bubble study showed ejection fraction of 60% to 65%. No atrial septal defect or patent foramen ovale. Status post cardiac arrest and respiratory failure. 3. Pulmonary: Bilateral recurrent pleural effusion with middle lobe and both lower lobes consolidation. Suspect aspiration pneumonia. Sputum culture positive for yeast being treated with antifungal coverage. 4. Renal: Acute kidney injury, multifocal. Hypernatremia secondary to intravascular volume depletion. Currently on Lasix. If renal function gets worse, consider reducing Lasix; to discuss with Cardiology consult. 5. Gastrointestinal: Cholelithiasis but no cholecystitis. CT abdomen done recently shows no other acute pathology. 6. Infectious Disease: New onset fever. Etiology, likely aspiration pneumonia. Consider urinary tract infection. May change Jin catheter. History of a deep venous thrombosis, currently on Lovenox 70 mg adjusted for renal function and for the body weight. 7. Endocrinology: Hyperglycemia, on steroid. Continue Accu-Chek with regular insulin coverage. Discussed with pulmonary consult, Dr. Alex Sheppard. Recommended bilateral pigtail catheter insertion to drain pleural fluid. We will hold Lovenox 12 hours before the procedure. Once the thoracentesis is completed, assess the mental status to see if there is improvement, then would consider another trial of spontaneous breathing trial. Mandeep Dixon MD
[2018-09-10] MEDS: Albumin Human 25% (12.5 gm/50 ml) IV SCH (21:24)
[2018-09-11] MEDS: Albuterol-Ipratrop 3 mg / 0.5 (3 ml) UD INH SCH ×4 (01:00→19:25)
[2018-09-11] MEDS: Proshield Plus GEL TOP SCH ×3 (01:03→16:29)
[2018-09-11] MEDS: Albumin Human 25% (12.5 gm/50 ml) IV SCH ×4 (03:18→21:00)
[2018-09-11 04:26] LABS: ABG ALLEN TEST YES; ARTERIAL BLOOD GAS HEMOGLOBIN 9.8 g/dL (11.7-17.4); ARTERIAL BLOOD GAS O2 CAPACITY 13.5 mL/dL (16-24); ARTERIAL BLOOD GAS O2 SAT 96.3 % (95-98); ARTERIAL BLOOD GAS PCO2 42 mm/Hg (35-45); ARTERIAL BLOOD GAS PH 7.49 (7.35-7.45); ARTERIAL BLOOD GAS PO2 65 mm/Hg (80-100); ARTERIAL BLOOD GAS TCO2 33.3 mmol/L (22-28)
[2018-09-11] MEDS: Insulin Lispro (humaLOG) 100 Units/ml Inj SC SCH ×4 (08:39→21:49)
[2018-09-11] MEDS: Insulin Detemir 100 Units/ml Inj SC SCH (08:40)
[2018-09-11] MEDS: Enoxaparin 80 mg Syringe SC SCH (08:40)
[2018-09-11] MEDS: Micafungin 100 MG in Sodium Chloride 0.9% 100 ML IVPB SCH (08:41)
[2018-09-11] MEDS: Pantoprazole 40 mg Susp UD NG SCH (08:42)
--- NOTE | 2018-09-11 08:58 | RAD ---
Date of service: 09/11/2018 HISTORY: Patient Intubated COMPARISON: Portable chest 09/10/2018. FINDINGS: LUNGS: Endotracheal and nasogastric tubes not significantly changed. Left PICC unchanged Patient rotated toward the left somewhat. Mild left perihilar patchy density unchanged with right perihilar and basilar patchy airspace disease increased. PLEURA: No significant pleural effusion identified, no pneumothorax apparent. CARDIOVASCULAR: Calcific atherosclerotic changes are seen related to the thoracic aorta. Cardiac size stable. Persistent if not slightly increased pulmonary vascular congestion given increased interstitial markings.. OSSEOUS STRUCTURES: No significant abnormalities. VISUALIZED UPPER ABDOMEN: Normal. OTHER FINDINGS: None. IMPRESSION: Tubes and catheters unchanged in position. Increased right perihilar and basilar patchy density with a perihilar density the unchanged. Pulmonary vascular congestion potentially increased. Continued clinical and radiographic monitoring advised.
[2018-09-11 12:25] LABS: BASO % 0.2 % (0.0-2.0); HEMOGLOBIN 8.8 g/dL (12.0-16.0); LYMPH # 0.4 K/uL (1.0-4.3); LYMPH % 2.5 % (20.0-40.0); MEAN CELL VOLUME 87.2 fl (81.0-99.0); MEAN CORPUSCULAR HEMOGLOBIN 27.6 pg (27.0-31.0); MEAN CORPUSCULAR HGB CONC 31.6 g/dL (33.0-37.0); MONO # 0.9 K/uL (0.0-0.8); MONO % 6.1 % (0.0-10.0); NEUT # 13.3 K/uL (1.8-7.0); NEUT % 91.2 % (50.0-75.0); NRBC % 0.5 % (0.0-0.0); PLATELET COUNT 205 K/uL (130-400); RED CELL DISTRIBUTION WIDTH 23.7 % (11.5-14.5); WHITE BLOOD COUNT 14.6 K/uL (4.8-10.8)
[2018-09-11 12:43] LABS: ALBUMIN 2.9 g/dL (3.5-5.0); CALCIUM 7.8 mg/dL (8.4-10.2)
--- NOTE | 2018-09-11 13:06 | CP.PCM.PN ---
Subjective - Date & Time of Evaluation Date of Evaluation: 09/11/18 Time of Evaluation: 09:00 - Subjective Subjective: intubated lethargic afebrile belly tender Objective - Vital Signs/Intake and Output Vital Signs (last 24 hours): Temp Pulse Resp BP Pulse Ox 98.8 F 108 H 24 155/78 H 97 09/11/18 12:00 09/11/18 12:00 09/11/18 12:00 09/11/18 12:00 09/11/18 12:00 Intake and Output: 09/11/18 09/11/18 06:59 18:59 Intake Total 1324 850 Output Total 660 450 Balance 664 400 - Medications Medications: Current Medications Acetaminophen (Tylenol 650mg/20.3ml Solution Ud) 650 mg NG Q6 PRN PRN Reason: Temperature Last Admin: 08/25/18 01:06 Dose: 650 mg Acetaminophen (Tylenol 650mg/20.3ml Solution Ud) 650 mg PO Q6 PRN PRN Reason: Pain, Mild (1-3) Last Admin: 09/02/18 05:54 Dose: 650 mg Albumin Human (Albumin Human 25% (12.5 Gm/50 Ml)) 12.5 gm IV Q6 [facility] Last Admin: 09/11/18 09:01 Dose: 12.5 gm Albuterol/Ipratropium (Duoneb 3 Mg/0.5 Mg (3 Ml) Ud) 3 ml INH RQ6 [facility] Last Admin: 09/11/18 07:43 Dose: 3 ml Aspirin (Aspirin Chewable) 81 mg NG DAILY [facility] Last Admin: 09/11/18 08:45 Dose: 81 mg Dimethicone (Proshield Plus Skin Protectant) 1 applic TOP Q8 [facility] Last Admin: 09/11/18 08:42 Dose: 1 applic Enoxaparin Sodium (Lovenox) 70 mg SC DAILY [facility]; Protocol Last Admin: 09/11/18 08:40 Dose: 70 mg Furosemide (Lasix) 20 mg IVP Q12 [facility] Last Admin: 09/11/18 08:40 Dose: 20 mg Hydralazine HCl (Apresoline) 10 mg IV Q6 PRN PRN Reason: Systolic Blood Pressure Last Admin: 09/11/18 03:19 Dose: 10 mg Cefepime HCl 2 gm/ Sodium (Chloride) 100 mls @ 100 mls/hr IVPB Q12 [facility]; Protocol Last Admin: 09/10/18 21:08 Dose: 100 mls/hr Micafungin Sodium 100 mg/ (Sodium Chloride) 100 mls @ 100 mls/hr IVPB DAILY [facility]; Protocol Last Admin: 09/11/18 08:41 Dose: 100 mls/hr Vancomycin HCl 750 mg/ Sodium (Chloride) 250 mls @ 166.667 mls/hr IVPB DAILY [facility]; Protocol Last Admin: 09/11/18 08:43 Dose: 166.667 mls/hr Insulin Detemir (Levemir) 20 units SC DAILY [facility] Last Admin: 09/11/18 08:40 Dose: 20 units Insulin Human Lispro (Humalog) 0 units SC ACHS [facility]; Protocol Last Admin: 09/11/18 11:55 Dose: 10 unit Lorazepam (Ativan) 0.5 mg IVP Q6 PRN PRN Reason: Agitation Last Admin: 09/11/18 09:00 Dose: 0.5 mg Meclizine HCl (Antivert) 12.5 mg PO DAILY [facility] Last Admin: 08/18/18 09:27 Dose: 12.5 mg Metformin HCl (Glucophage) 1,000 mg PO BID [facility] Last Admin: 08/16/18 09:34 Dose: Not Given Methylprednisolone (Solu-Medrol) 60 mg IV Q6H [facility] Last Admin: 09/11/18 08:42 Dose: 60 mg Metoprolol Tartrate (Lopressor) 25 mg PO Q6 [facility] Last Admin: 09/11/18 09:02 Dose: 25 mg Morphine Sulfate (Morphine) 1 mg IVP Q6 PRN PRN Reason: Agitation Last Admin: 09/11/18 11:23 Dose: 1 mg Nystatin (Nystop Topical Powder) 1 applic TOP TID [facility] Last Admin: 09/11/18 12:00 Dose: 1 applic Pantoprazole Sodium (Protonix Susp) 40 mg NG DAILY [facility] Last Admin: 09/11/18 08:42 Dose: 40 mg Sucralfate (Carafate Oral Susp) 1 gm PO ACHS [facility] Last Admin: 08/18/18 22:07 Dose: 1 gm - Labs Labs: 09/11/18 08:45 09/11/18 04:00 PT 13.3 Seconds (9.8-13.1) H 08/25/18 05:00 INR 1.2 08/25/18 05:00 APTT 29.9 Seconds (25.6-37.1) 08/25/18 05:00 - Constitutional Appears: Confused, Cachectic, Chronically Ill - Head Exam Head Exam: NORMOCEPHALIC - Eye Exam Eye Exam: absent: Scleral icterus - ENT Exam ENT Exam: Mucous Membranes Dry - Neck Exam Neck Exam: absent: Lymphadenopathy - Respiratory Exam Respiratory Exam: Decreased Breath Sounds - Cardiovascular Exam Cardiovascular Exam: REGULAR RHYTHM - GI/Abdominal Exam GI & Abdominal Exam: Guarding - Rectal Exam Rectal Exam: Deferred - Extremities Exam Extremities Exam: Pedal Edema - Back Exam Back Exam: absent: CVA tenderness (L), CVA tenderness (R) - Neurological Exam Neurological Exam: Altered Assessment and Plan (1) Dehydration Status: Acute (2) NSTEMI (non-ST elevated myocardial infarction) Status: Resolved (3) Nausea & vomiting Status: Resolved (4) Type 2 diabetes mellitus with hyperglycemia Status: Chronic (5) Abdominal pain Status: Acute (6) Gallbladder disease Status: Acute (7) Pneumonia Status: Acute - Assessment and Plan (Free Text) Assessment: consider re-imaging abdomen / cholecystotomy tube IV antibiotics for pneumonia renewed May need tracheostomy
[2018-09-11] MEDS: Cefepime 2 GM in Sodium Chloride 0.9% 100 ML IVPB SCH ×2 (13:22→21:02)
--- NOTE | 2018-09-11 14:14 | CP.PCM.PN ---
Subjective - Subjective Subjective: sedated, agitated earlier, intubated Objective - Vital Signs/Intake and Output Vital Signs (last 24 hours): Temp Pulse Resp BP Pulse Ox 98.8 F 108 H 24 155/78 H 97 09/11/18 12:00 09/11/18 12:00 09/11/18 12:00 09/11/18 12:00 09/11/18 12:00 Intake and Output: 09/11/18 09/11/18 06:59 18:59 Intake Total 1324 850 Output Total 660 450 Balance 664 400 - Medications Medications: Current Medications Acetaminophen (Tylenol 650mg/20.3ml Solution Ud) 650 mg NG Q6 PRN PRN Reason: Temperature Last Admin: 08/25/18 01:06 Dose: 650 mg Acetaminophen (Tylenol 650mg/20.3ml Solution Ud) 650 mg PO Q6 PRN PRN Reason: Pain, Mild (1-3) Last Admin: 09/02/18 05:54 Dose: 650 mg Albumin Human (Albumin Human 25% (12.5 Gm/50 Ml)) 12.5 gm IV Q6 [facility] Last Admin: 09/11/18 09:01 Dose: 12.5 gm Albuterol/Ipratropium (Duoneb 3 Mg/0.5 Mg (3 Ml) Ud) 3 ml INH RQ6 [facility] Last Admin: 09/11/18 14:01 Dose: 3 ml Aspirin (Aspirin Chewable) 81 mg NG DAILY [facility] Last Admin: 09/11/18 08:45 Dose: 81 mg Dimethicone (Proshield Plus Skin Protectant) 1 applic TOP Q8 [facility] Last Admin: 09/11/18 08:42 Dose: 1 applic Enoxaparin Sodium (Lovenox) 70 mg SC DAILY [facility]; Protocol Last Admin: 09/11/18 08:40 Dose: 70 mg Furosemide (Lasix) 20 mg IVP Q12 [facility] Last Admin: 09/11/18 08:40 Dose: 20 mg Hydralazine HCl (Apresoline) 10 mg IV Q6 PRN PRN Reason: Systolic Blood Pressure Last Admin: 09/11/18 03:19 Dose: 10 mg Cefepime HCl 2 gm/ Sodium (Chloride) 100 mls @ 100 mls/hr IVPB Q12 [facility]; Protocol Last Admin: 09/11/18 13:22 Dose: 100 mls/hr Micafungin Sodium 100 mg/ (Sodium Chloride) 100 mls @ 100 mls/hr IVPB DAILY [facility]; Protocol Last Admin: 09/11/18 08:41 Dose: 100 mls/hr Vancomycin HCl 750 mg/ Sodium (Chloride) 250 mls @ 166.667 mls/hr IVPB DAILY [facility]; Protocol Last Admin: 09/11/18 08:43 Dose: 166.667 mls/hr Insulin Detemir (Levemir) 20 units SC DAILY [facility] Last Admin: 09/11/18 08:40 Dose: 20 units Insulin Human Lispro (Humalog) 0 units SC ACHS [facility]; Protocol Last Admin: 09/11/18 11:55 Dose: 10 unit Lorazepam (Ativan) 0.5 mg IVP Q6 PRN PRN Reason: Agitation Last Admin: 09/11/18 09:00 Dose: 0.5 mg Meclizine HCl (Antivert) 12.5 mg PO DAILY [facility] Last Admin: 08/18/18 09:27 Dose: 12.5 mg Metformin HCl (Glucophage) 1,000 mg PO BID [facility] Last Admin: 08/16/18 09:34 Dose: Not Given Methylprednisolone (Solu-Medrol) 60 mg IV Q6H [facility] Last Admin: 09/11/18 08:42 Dose: 60 mg Metoprolol Tartrate (Lopressor) 25 mg PO Q6 [facility] Last Admin: 09/11/18 09:02 Dose: 25 mg Morphine Sulfate (Morphine) 1 mg IVP Q6 PRN PRN Reason: Agitation Last Admin: 09/11/18 11:23 Dose: 1 mg Nystatin (Nystop Topical Powder) 1 applic TOP TID [facility] Last Admin: 09/11/18 12:00 Dose: 1 applic Pantoprazole Sodium (Protonix Susp) 40 mg NG DAILY [facility] Last Admin: 09/11/18 08:42 Dose: 40 mg Sucralfate (Carafate Oral Susp) 1 gm PO ACHS [facility] Last Admin: 08/18/18 22:07 Dose: 1 gm - Labs Labs: 09/11/18 08:45 09/11/18 04:00 PT 13.3 Seconds (9.8-13.1) H 08/25/18 05:00 INR 1.2 08/25/18 05:00 APTT 29.9 Seconds (25.6-37.1) 08/25/18 05:00 - Constitutional Appears: No Acute Distress - Head Exam Head Exam: NORMAL INSPECTION - Eye Exam Eye Exam: PERRL - ENT Exam Additional comments: intubated - Neck Exam Neck Exam: Normal Inspection - Respiratory Exam Respiratory Exam: Decreased Breath Sounds (at bases) - Cardiovascular Exam Cardiovascular Exam: REGULAR RHYTHM - GI/Abdominal Exam GI & Abdominal Exam: Soft, Normal Bowel Sounds - Extremities Exam Additional comments: edema - Neurological Exam Additional comments: sedated, minimal response to tactil stimuli - Skin Skin Exam: Warm Assessment and Plan (1) Acute respiratory failure Status: Resolved (2) Cardiac arrest Status: Resolved (3) Aspiration pneumonia Status: Acute (4) Pleural effusion Status: Acute (5) Atelectasis of both lungs Status: Acute (6) NSTEMI (non-ST elevated myocardial infarction) Status: Acute (7) CHF (congestive heart failure) Status: Acute (8) DVT (deep venous thrombosis) Status: Acute (9) Severe anemia Status: Resolved - Assessment and Plan (Free Text) Plan: IR evaluaton in am for B/L Pigtail insertion, f/u CXR am, Patient on Lasix, C XR today effusions improved, continue Atb coverage and ventilatory support Critical care time: 31 min.
[2018-09-11 15:03] LABS: ANISOCYTOSIS MODERATE; LYMPHOCYTE 2 % (20-50); MONOCYTE 7 % (0-10); NEUTROPHIL 91 % (42-75); PLATELET ESTIMATE NORMAL (NORMAL); TOTAL CELLS COUNTED 100
[2018-09-11 15:04] LABS: LARGE PLATELETS PRESENT; OVALOCYTES SLIGHT; POIKILOCYTOSIS SLIGHT; TEARDROP CELLS SLIGHT
--- NOTE | 2018-09-11 17:44 | CP.PCM.PN ---
Subjective - Date & Time of Evaluation Date of Evaluation: 09/11/18 Time of Evaluation: 17:44 - Subjective Subjective: FIO2 REQUIREMENT DECREASING. PTS NA INCREASING DUE TO DIURETICS. NOW ON FREE WATER FLUSHES. Objective - Vital Signs/Intake and Output Vital Signs (last 24 hours): Temp Pulse Resp BP Pulse Ox 99.6 F 90 19 111/54 L 100 09/11/18 16:00 09/11/18 16:28 09/11/18 16:00 09/11/18 16:28 09/11/18 16:00 Intake and Output: 09/11/18 09/11/18 06:59 18:59 Intake Total 1324 1250 Output Total 660 800 Balance 664 450 - Medications Medications: Current Medications Acetaminophen (Tylenol 650mg/20.3ml Solution Ud) 650 mg NG Q6 PRN PRN Reason: Temperature Last Admin: 08/25/18 01:06 Dose: 650 mg Acetaminophen (Tylenol 650mg/20.3ml Solution Ud) 650 mg PO Q6 PRN PRN Reason: Pain, Mild (1-3) Last Admin: 09/02/18 05:54 Dose: 650 mg Albumin Human (Albumin Human 25% (12.5 Gm/50 Ml)) 12.5 gm IV Q6 [facility] Last Admin: 09/11/18 16:27 Dose: 12.5 gm Albuterol/Ipratropium (Duoneb 3 Mg/0.5 Mg (3 Ml) Ud) 3 ml INH RQ6 [facility] Last Admin: 09/11/18 14:01 Dose: 3 ml Aspirin (Aspirin Chewable) 81 mg NG DAILY [facility] Last Admin: 09/11/18 08:45 Dose: 81 mg Dimethicone (Proshield Plus Skin Protectant) 1 applic TOP Q8 [facility] Last Admin: 09/11/18 16:29 Dose: 1 applic Enoxaparin Sodium (Lovenox) 70 mg SC DAILY [facility]; Protocol Last Admin: 09/11/18 08:40 Dose: 70 mg Furosemide (Lasix) 20 mg IVP Q12 [facility] Last Admin: 09/11/18 08:40 Dose: 20 mg Hydralazine HCl (Apresoline) 10 mg IV Q6 PRN PRN Reason: Systolic Blood Pressure Last Admin: 09/11/18 03:19 Dose: 10 mg Cefepime HCl 2 gm/ Sodium (Chloride) 100 mls @ 100 mls/hr IVPB Q12 [facility]; Protocol Last Admin: 09/11/18 13:22 Dose: 100 mls/hr Micafungin Sodium 100 mg/ (Sodium Chloride) 100 mls @ 100 mls/hr IVPB DAILY [facility]; Protocol Last Admin: 09/11/18 08:41 Dose: 100 mls/hr Vancomycin HCl 750 mg/ Sodium (Chloride) 250 mls @ 166.667 mls/hr IVPB DAILY [facility]; Protocol Last Admin: 09/11/18 08:43 Dose: 166.667 mls/hr Insulin Detemir (Levemir) 20 units SC DAILY [facility] Last Admin: 09/11/18 08:40 Dose: 20 units Insulin Human Lispro (Humalog) 0 units SC ACHS [facility]; Protocol Last Admin: 09/11/18 16:28 Dose: 8 unit Lorazepam (Ativan) 0.5 mg IVP Q6 PRN PRN Reason: Agitation Last Admin: 09/11/18 15:06 Dose: 0.5 mg Meclizine HCl (Antivert) 12.5 mg PO DAILY [facility] Last Admin: 08/18/18 09:27 Dose: 12.5 mg Metformin HCl (Glucophage) 1,000 mg PO BID [facility] Last Admin: 08/16/18 09:34 Dose: Not Given Methylprednisolone (Solu-Medrol) 60 mg IV Q6H [facility] Last Admin: 09/11/18 16:29 Dose: 60 mg Metoprolol Tartrate (Lopressor) 25 mg PO Q6 [facility] Last Admin: 09/11/18 16:28 Dose: 25 mg Morphine Sulfate (Morphine) 1 mg IVP Q6 PRN PRN Reason: Agitation Last Admin: 09/11/18 17:40 Dose: 1 mg Nystatin (Nystop Topical Powder) 1 applic TOP TID [facility] Last Admin: 09/11/18 16:28 Dose: 1 applic Pantoprazole Sodium (Protonix Susp) 40 mg NG DAILY [facility] Last Admin: 09/11/18 08:42 Dose: 40 mg Sucralfate (Carafate Oral Susp) 1 gm PO ACHS [facility] Last Admin: 08/18/18 22:07 Dose: 1 gm - Labs Labs: 09/11/18 08:45 09/11/18 04:00 PT 13.3 Seconds (9.8-13.1) H 11/29/18 05:00 INR 1.2 08/25/18 05:00 APTT 29.9 Seconds (25.6-37.1) 08/25/18 05:00 Assessment and Plan (1) AURORA (acute kidney injury) Status: Acute (2) Acute respiratory failure Status: Resolved (3) Mental status alteration Status: Acute (4) NSTEMI (non-ST elevated myocardial infarction) Status: Resolved (5) Abnormal EKG Status: Chronic (6) Type 2 diabetes mellitus with hyperglycemia Status: Chronic (7) Hypertension Status: Chronic (8) DVT (deep venous thrombosis) Status: Acute (9) Severe anemia Status: Resolved (10) Nausea & vomiting Status: Resolved (11) Acute hypernatremia Status: Acute - Assessment and Plan (Free Text) Plan: WOULD CONSIDER B/L PIG TAILS FOR EFFUSIONS RATHER THAN PEG AND TRACH. PT WILL LIKELY TOLERATE EXTUBATION IF EFFUSIONS ARE DRAINED. AWAIT PTS RHEUM LABS. MONITOR CR, LACTIC ACID, ESR, CRP, AND LYTES. CONSIDER RHEUM CONSULT. CONSIDER D/C DIURETICS.
[2018-09-12] MEDS: Albuterol-Ipratrop 3 mg / 0.5 (3 ml) UD INH SCH ×3 (01:02→19:12)
[2018-09-12] MEDS: Proshield Plus GEL TOP SCH ×3 (01:13→16:16)
[2018-09-12] MEDS: Acetaminophen 650mg/20.3ml solution UD NG PRN (01:31)
[2018-09-12 04:12] LABS: ABG ALLEN TEST YES; ARTERIAL BLOOD GAS HCO3 29.9 mmol/L (21-28); ARTERIAL BLOOD GAS HEMOGLOBIN 10.2 g/dL (11.7-17.4); ARTERIAL BLOOD GAS O2 CAPACITY 13.8 mL/dL (16-24); ARTERIAL BLOOD GAS O2 CONTENT 12.4 ML/dL (15-23); ARTERIAL BLOOD GAS O2 SAT 89.6 % (95-98); ARTERIAL BLOOD GAS PCO2 40 mm/Hg (35-45); ARTERIAL BLOOD GAS PH 7.49 (7.35-7.45); ARTERIAL BLOOD GAS PO2 51 mm/Hg (80-100); ARTERIAL BLOOD GAS TCO2 31.7 mmol/L (22-28)
[2018-09-12 05:51] LABS: HEMOGLOBIN 9.9 g/dL (12.0-16.0); MEAN CORPUSCULAR HEMOGLOBIN 28.4 pg (27.0-31.0); MEAN CORPUSCULAR HGB CONC 31.9 g/dL (33.0-37.0); RBC 3.49 Mil/uL (3.80-5.20); RED CELL DISTRIBUTION WIDTH 23.6 % (11.5-14.5); WHITE BLOOD COUNT 16.6 K/uL (4.8-10.8)
[2018-09-12 06:15] LABS: ALB/GLOB RATIO 1.2 (1.0-2.1); ALBUMIN 3.3 g/dL (3.5-5.0); CALCIUM 7.9 mg/dL (8.4-10.2)
[2018-09-12] MEDS ORDERED: Insulin Lispro (humaLOG) 100 Units/ml Inj SC STA (06:48)
--- NOTE | 2018-09-12 07:05 | CP.PCM.PN ---
Subjective - Date & Time of Evaluation Date of Evaluation: 09/09/18 Time of Evaluation: 07:25 Objective - Vital Signs/Intake and Output Vital Signs (last 24 hours): Temp Pulse Resp BP Pulse Ox 101.3 F H 111 H 24 148/77 98 09/12/18 06:00 09/12/18 06:00 09/12/18 06:00 09/12/18 06:00 09/12/18 06:00 Intake and Output: 09/12/18 09/12/18 06:59 18:59 Intake Total 1200 Output Total 1000 Balance 200 - Medications Medications: Current Medications Acetaminophen (Tylenol 650mg/20.3ml Solution Ud) 650 mg NG Q6 PRN PRN Reason: Temperature Last Admin: 09/12/18 01:31 Dose: 650 mg Acetaminophen (Tylenol 650mg/20.3ml Solution Ud) 650 mg PO Q6 PRN PRN Reason: Pain, Mild (1-3) Last Admin: 09/02/18 05:54 Dose: 650 mg Albuterol/Ipratropium (Duoneb 3 Mg/0.5 Mg (3 Ml) Ud) 3 ml INH RQ6 [facility] Last Admin: 09/12/18 01:02 Dose: 3 ml Aspirin (Aspirin Chewable) 81 mg NG DAILY [facility] Last Admin: 09/11/18 08:45 Dose: 81 mg Dimethicone (Proshield Plus Skin Protectant) 1 applic TOP Q8 [facility] Last Admin: 09/12/18 01:13 Dose: 1 applic Furosemide (Lasix) 20 mg IVP Q12 [facility] Last Admin: 09/11/18 21:00 Dose: 20 mg Hydralazine HCl (Apresoline) 10 mg IV Q6 PRN PRN Reason: Systolic Blood Pressure Last Admin: 09/12/18 04:36 Dose: 10 mg Cefepime HCl 2 gm/ Sodium (Chloride) 100 mls @ 100 mls/hr IVPB Q12 [facility]; Protocol Last Admin: 09/11/18 21:02 Dose: 100 mls/hr Micafungin Sodium 100 mg/ (Sodium Chloride) 100 mls @ 100 mls/hr IVPB DAILY [facility]; Protocol Last Admin: 09/11/18 08:41 Dose: 100 mls/hr Vancomycin HCl 750 mg/ Sodium (Chloride) 250 mls @ 166.667 mls/hr IVPB DAILY [facility]; Protocol Last Admin: 09/11/18 08:43 Dose: 166.667 mls/hr Insulin Detemir (Levemir) 20 units SC DAILY [facility] Last Admin: 09/11/18 08:40 Dose: 20 units Insulin Human Lispro (Humalog) 0 units SC Q6 [facility]; Protocol Lorazepam (Ativan) 0.5 mg IVP Q6 PRN PRN Reason: Agitation Last Admin: 09/12/18 04:34 Dose: 0.5 mg Meclizine HCl (Antivert) 12.5 mg PO DAILY [facility] Last Admin: 08/18/18 09:27 Dose: 12.5 mg Metformin HCl (Glucophage) 1,000 mg PO BID [facility] Last Admin: 08/16/18 09:34 Dose: Not Given Methylprednisolone (Solu-Medrol) 60 mg IV Q6H [facility] Last Admin: 09/12/18 04:35 Dose: 60 mg Metoprolol Tartrate (Lopressor) 25 mg PO Q6 [facility] Last Admin: 09/12/18 04:34 Dose: 25 mg Morphine Sulfate (Morphine) 1 mg IVP Q6 PRN PRN Reason: Agitation Last Admin: 09/12/18 01:12 Dose: 1 mg Nystatin (Nystop Topical Powder) 1 applic TOP TID [facility] Last Admin: 09/11/18 16:28 Dose: 1 applic Pantoprazole Sodium (Protonix Susp) 40 mg NG DAILY [facility] Last Admin: 09/11/18 08:42 Dose: 40 mg Sucralfate (Carafate Oral Susp) 1 gm PO ACHS [facility] Last Admin: 08/18/18 22:07 Dose: 1 gm - Labs Labs: 09/12/18 04:30 09/12/18 04:30 PT 13.3 Seconds (9.8-13.1) H 08/25/18 05:00 INR 1.2 08/25/18 05:00 APTT 29.9 Seconds (25.6-37.1) 08/25/18 05:00 Assessment and Plan (1) Acute respiratory failure Status: Resolved (2) Hypertensive urgency Status: Resolved (3) DVT (deep venous thrombosis) Status: Acute (4) Cardiac arrest Status: Acute (5) AURORA (acute kidney injury) Status: Acute (6) NSTEMI (non-ST elevated myocardial infarction) Status: Resolved (7) Type 2 diabetes mellitus with hyperglycemia Status: Chronic (8) Acute gastroenteritis Status: Resolved (9) Abdominal pain in female Status: Resolved (10) Gallbladder disease Status: Acute (11) Severe anemia Status: Resolved (12) Aspiration pneumonia Status: Acute
--- NOTE | 2018-09-12 07:09 | CP.PCM.PN ---
Subjective - Date & Time of Evaluation Date of Evaluation: 09/10/18 Time of Evaluation: 08:10 - Subjective Subjective: Seen and examined at the bed side. Intubated and sedated. BP normal without pressor. . Objective - Vital Signs/Intake and Output Vital Signs (last 24 hours): Temp Pulse Resp BP Pulse Ox 101.3 F H 111 H 24 148/77 98 09/12/18 06:00 09/12/18 06:00 09/12/18 06:00 09/12/18 06:00 09/12/18 06:00 Intake and Output: 09/12/18 09/12/18 06:59 18:59 Intake Total 1200 Output Total 1000 Balance 200 - Medications Medications: Current Medications Acetaminophen (Tylenol 650mg/20.3ml Solution Ud) 650 mg NG Q6 PRN PRN Reason: Temperature Last Admin: 09/12/18 01:31 Dose: 650 mg Acetaminophen (Tylenol 650mg/20.3ml Solution Ud) 650 mg PO Q6 PRN PRN Reason: Pain, Mild (1-3) Last Admin: 09/02/18 05:54 Dose: 650 mg Albuterol/Ipratropium (Duoneb 3 Mg/0.5 Mg (3 Ml) Ud) 3 ml INH RQ6 [facility] Last Admin: 09/12/18 01:02 Dose: 3 ml Aspirin (Aspirin Chewable) 81 mg NG DAILY [facility] Last Admin: 09/11/18 08:45 Dose: 81 mg Dimethicone (Proshield Plus Skin Protectant) 1 applic TOP Q8 [facility] Last Admin: 09/12/18 01:13 Dose: 1 applic Furosemide (Lasix) 20 mg IVP Q12 [facility] Last Admin: 09/11/18 21:00 Dose: 20 mg Hydralazine HCl (Apresoline) 10 mg IV Q6 PRN PRN Reason: Systolic Blood Pressure Last Admin: 09/12/18 04:36 Dose: 10 mg Cefepime HCl 2 gm/ Sodium (Chloride) 100 mls @ 100 mls/hr IVPB Q12 [facility]; Protocol Last Admin: 09/11/18 21:02 Dose: 100 mls/hr Micafungin Sodium 100 mg/ (Sodium Chloride) 100 mls @ 100 mls/hr IVPB DAILY [facility]; Protocol Last Admin: 09/11/18 08:41 Dose: 100 mls/hr Vancomycin HCl 750 mg/ Sodium (Chloride) 250 mls @ 166.667 mls/hr IVPB DAILY [facility]; Protocol Last Admin: 09/11/18 08:43 Dose: 166.667 mls/hr Insulin Detemir (Levemir) 20 units SC DAILY [facility] Last Admin: 09/11/18 08:40 Dose: 20 units Insulin Human Lispro (Humalog) 0 units SC Q6 [facility]; Protocol Lorazepam (Ativan) 0.5 mg IVP Q6 PRN PRN Reason: Agitation Last Admin: 09/12/18 04:34 Dose: 0.5 mg Meclizine HCl (Antivert) 12.5 mg PO DAILY [facility] Last Admin: 08/18/18 09:27 Dose: 12.5 mg Metformin HCl (Glucophage) 1,000 mg PO BID [facility] Last Admin: 08/16/18 09:34 Dose: Not Given Methylprednisolone (Solu-Medrol) 60 mg IV Q6H [facility] Last Admin: 09/12/18 04:35 Dose: 60 mg Metoprolol Tartrate (Lopressor) 25 mg PO Q6 [facility] Last Admin: 09/12/18 04:34 Dose: 25 mg Morphine Sulfate (Morphine) 1 mg IVP Q6 PRN PRN Reason: Agitation Last Admin: 09/12/18 01:12 Dose: 1 mg Nystatin (Nystop Topical Powder) 1 applic TOP TID [facility] Last Admin: 09/11/18 16:28 Dose: 1 applic Pantoprazole Sodium (Protonix Susp) 40 mg NG DAILY [facility] Last Admin: 09/11/18 08:42 Dose: 40 mg Sucralfate (Carafate Oral Susp) 1 gm PO ACHS [facility] Last Admin: 08/18/18 22:07 Dose: 1 gm - Labs Labs: 09/12/18 04:30 09/12/18 04:30 PT 13.3 Seconds (9.8-13.1) H 08/25/18 05:00 INR 1.2 08/25/18 05:00 APTT 29.9 Seconds (25.6-37.1) 08/25/18 05:00 Assessment and Plan (1) Acute respiratory failure Status: Resolved (2) Hypertensive urgency Status: Resolved (3) DVT (deep venous thrombosis) Status: Acute (4) Cardiac arrest Status: Acute (5) AURORA (acute kidney injury) Status: Acute (6) NSTEMI (non-ST elevated myocardial infarction) Status: Resolved (7) Type 2 diabetes mellitus with hyperglycemia Status: Chronic (8) Acute gastroenteritis Status: Resolved (9) Abdominal pain in female Status: Resolved (10) Gallbladder disease Status: Acute (11) Severe anemia Status: Resolved (12) Aspiration pneumonia Status: Acute - Assessment and Plan (Free Text) Plan: Continue current Care
--- NOTE | 2018-09-12 07:13 | CP.PCM.PN ---
Subjective - Date & Time of Evaluation Date of Evaluation: 09/11/18 Time of Evaluation: 15:10 - Subjective Subjective: Intubated on MV. No fever or chills. Objective - Vital Signs/Intake and Output Vital Signs (last 24 hours): Temp Pulse Resp BP Pulse Ox 101.3 F H 111 H 24 148/77 98 09/12/18 06:00 09/12/18 06:00 09/12/18 06:00 09/12/18 06:00 09/12/18 06:00 Intake and Output: 09/12/18 09/12/18 06:59 18:59 Intake Total 1200 Output Total 1000 Balance 200 - Medications Medications: Current Medications Acetaminophen (Tylenol 650mg/20.3ml Solution Ud) 650 mg NG Q6 PRN PRN Reason: Temperature Last Admin: 09/12/18 01:31 Dose: 650 mg Acetaminophen (Tylenol 650mg/20.3ml Solution Ud) 650 mg PO Q6 PRN PRN Reason: Pain, Mild (1-3) Last Admin: 09/02/18 05:54 Dose: 650 mg Albuterol/Ipratropium (Duoneb 3 Mg/0.5 Mg (3 Ml) Ud) 3 ml INH RQ6 [facility] Last Admin: 09/12/18 01:02 Dose: 3 ml Aspirin (Aspirin Chewable) 81 mg NG DAILY [facility] Last Admin: 09/11/18 08:45 Dose: 81 mg Dimethicone (Proshield Plus Skin Protectant) 1 applic TOP Q8 [facility] Last Admin: 09/12/18 01:13 Dose: 1 applic Furosemide (Lasix) 20 mg IVP Q12 [facility] Last Admin: 09/11/18 21:00 Dose: 20 mg Hydralazine HCl (Apresoline) 10 mg IV Q6 PRN PRN Reason: Systolic Blood Pressure Last Admin: 09/12/18 04:36 Dose: 10 mg Cefepime HCl 2 gm/ Sodium (Chloride) 100 mls @ 100 mls/hr IVPB Q12 [facility]; Protocol Last Admin: 09/11/18 21:02 Dose: 100 mls/hr Micafungin Sodium 100 mg/ (Sodium Chloride) 100 mls @ 100 mls/hr IVPB DAILY [facility]; Protocol Last Admin: 09/11/18 08:41 Dose: 100 mls/hr Vancomycin HCl 750 mg/ Sodium (Chloride) 250 mls @ 166.667 mls/hr IVPB DAILY [facility]; Protocol Last Admin: 09/11/18 08:43 Dose: 166.667 mls/hr Insulin Detemir (Levemir) 20 units SC DAILY [facility] Last Admin: 09/11/18 08:40 Dose: 20 units Insulin Human Lispro (Humalog) 0 units SC Q6 [facility]; Protocol Lorazepam (Ativan) 0.5 mg IVP Q6 PRN PRN Reason: Agitation Last Admin: 09/12/18 04:34 Dose: 0.5 mg Meclizine HCl (Antivert) 12.5 mg PO DAILY [facility] Last Admin: 08/18/18 09:27 Dose: 12.5 mg Metformin HCl (Glucophage) 1,000 mg PO BID [facility] Last Admin: 08/16/18 09:34 Dose: Not Given Methylprednisolone (Solu-Medrol) 60 mg IV Q6H [facility] Last Admin: 09/12/18 04:35 Dose: 60 mg Metoprolol Tartrate (Lopressor) 25 mg PO Q6 [facility] Last Admin: 09/12/18 04:34 Dose: 25 mg Morphine Sulfate (Morphine) 1 mg IVP Q6 PRN PRN Reason: Agitation Last Admin: 09/12/18 01:12 Dose: 1 mg Nystatin (Nystop Topical Powder) 1 applic TOP TID [facility] Last Admin: 09/11/18 16:28 Dose: 1 applic Pantoprazole Sodium (Protonix Susp) 40 mg NG DAILY [facility] Last Admin: 09/11/18 08:42 Dose: 40 mg Sucralfate (Carafate Oral Susp) 1 gm PO ACHS [facility] Last Admin: 08/18/18 22:07 Dose: 1 gm - Labs Labs: 09/12/18 04:30 09/12/18 04:30 PT 13.3 Seconds (9.8-13.1) H 08/25/18 05:00 INR 1.2 08/25/18 05:00 APTT 29.9 Seconds (25.6-37.1) 08/25/18 05:00 Assessment and Plan (1) Acute respiratory failure Status: Resolved (2) Hypertensive urgency Status: Resolved (3) DVT (deep venous thrombosis) Status: Acute (4) Cardiac arrest Status: Acute (5) AURORA (acute kidney injury) Status: Acute (6) NSTEMI (non-ST elevated myocardial infarction) Status: Resolved (7) Type 2 diabetes mellitus with hyperglycemia Status: Chronic (8) Acute gastroenteritis Status: Resolved (9) Abdominal pain in female Status: Resolved (10) Gallbladder disease Status: Acute (11) Severe anemia Status: Resolved (12) Aspiration pneumonia Status: Acute - Assessment and Plan (Free Text) Plan: MV Continue Current Care Free water Flushes
--- NOTE | 2018-09-12 07:44 | CP.CCUPN ---
CCU Subjective - Physician Review Subjective (Free Text): 09/05/18 16:03 The patient was Seen and examined by me at the bedside during ICU round, Medical records reviewed and Management issues were discussed and formulated with the house staff. Events reviewed Patient with Acute respiratory failure, Cardiac arrest s/p resuscitation Patient transferred to ICU 08/19 after ?Cardiac arrest (likely syncopal episodes) while she was in Nuclear department for HIDA scan, she collapsed to the floor, but awake, had palpable pulses and spontanous breathing, so no resuscitative measures performed, she was transferred to the ER, few minutes after arriving to the ER, she was found hypotension to 60/38 and bradycardia, Code Blue was called, Received epinephrine x 4 and subsequently ROSC, she was intubated and TLC placed. Patient Failed extubated then re-intubated x 3 Clinically improving, No Vasopressors This morning, she remains orally intubated, on ventilator, on PRVC TV 400, RR 14, FIO2 40% PPEP-7 (will decrease to PEEP-5) All sedations discontinued Awake, opens eyes to verbal stimuli but not following commands Afebrile, Tmx 101.3 NSR on the monitor Last 24H I&O 1500/2650 This morning Patient was placed on Patient placed on spontaneous breathing rial but did not tolerate, she became tachycardic and Tachypnic labs revealed persistant Leucocytosis 16.6, worsening renal function BUN/Cr down to 70/1.3 No evidence of active bleed, H/H Stable CXR and chest Ct scan consistent with bilateral pleural effusion, will arrange for IR thoracocentesis Vs chest tube placement for tomorrow Will continue diuresis and steroids for elevated ESR, possible ARDS, sepsis, inflammatory process Free water flush increased from 250 cc Q 6H to 250 cc Q 4H 09/12/18 17:26 Patient evaluated by surgery and scheduled for Trcheostomy on Continue IV Vancomycin, Cefepime and Micafungin Will re-culture if further fever CCU Objective - Vital Signs / Intake & Output Vital Signs (Last 4 hours): Vital Signs Temp Pulse Resp BP Pulse Ox 09/12/18 06:00 101.3 F H 111 H 24 148/77 98 09/12/18 04:36 123 H 146/85 09/12/18 04:34 125 H 146/85 09/12/18 04:00 100.8 F H 121 H 23 146/85 100 Intake and Output (Last 8hrs): Intake & Output 09/11/18 09/12/18 09/12/18 22:59 06:59 14:59 Intake Total 850 800 Output Total 150 1000 Balance 700 -200 Intake: Intake, Piggyback 250 Tube Feeding 400 400 Free Water Flush 200 400 Output: Urine 150 1000 Urethral (Jin) 150 1000 - Physical Exam Head: Positive for: Atraumatic, Normocephalic Pupils: Positive for: PERRL. Negative for: Sluggish, Non-Reactive, Pinpoint Conjunctiva: Positive for: Normal. Negative for: Injected, Icteric Mouth: Positive for: Moist Mucous Membranes Nose (External): Positive for: Atraumatic Neck: Positive for: Normal Range of Motion Respiratory/Chest: Positive for: Rhonchi Cardiovascular: Positive for: Regular Rate and Rhythm Abdomen: Positive for: Normal Bowel Sounds. Negative for: Tenderness, Distention, Peritoneal Signs Upper Extremity: Positive for: Normal Inspection, NORMAL PULSES, Capillary Refill < 2s. Negative for: Cyanosis, Edema Lower Extremity: Positive for: Normal Inspection. Negative for: Edema, CALF TENDERNESS Neurological: Positive for: Other (on ventilator, opens eyes to verbal stimuli). Negative for: GCS=15, CN II-XII Intact, Speech Normal, Motor Func Grossly Inta ct, Normal Sensory Function, Normal Cerebellar Funct, Norm Deep Tendon Reflexes, Gait Normal, Memory Normal, Normal 2Pt Descrimination Psychiatric: Negative for: Alert, Oriented x 3 - Medications Active Medications: Active Medications Generic Name Dose Route Start Last Admin Trade Name Jhonnyq PRN Reason Stop Dose Admin Acetaminophen 650 mg 08/24/18 10:29 09/12/18 01:31 Tylenol 650mg/20.3ml Solution Ud NG 650 mg Q6 PRN Administration Temperature Acetaminophen 650 mg 08/31/18 19:57 09/02/18 05:54 Tylenol 650mg/20.3ml Solution Ud PO 650 mg Q6 PRN Administration Pain, Mild (1-3) Albuterol/Ipratropium 3 ml 09/08/18 14:00 09/12/18 01:02 Duoneb 3 Mg/0.5 Mg (3 Ml) Ud INH 3 ml RQ6 CARMEN Administration Aspirin 81 mg 09/06/18 09:00 09/11/18 08:45 Aspirin Chewable NG 81 mg DAILY CARMEN Administration Dimethicone 1 applic 09/05/18 17:00 09/12/18 01:13 Proshield Plus Skin Protectant TOP 1 applic Q8 CARMEN Administration Furosemide 20 mg 09/10/18 21:00 09/11/18 21:00 Lasix IVP 20 mg Q12 CARMEN Administration Hydralazine HCl 10 mg 09/07/18 18:38 09/12/18 04:36 Apresoline IV 10 mg Q6 PRN Administration Systolic Blood Pressure Cefepime HCl 2 gm/ Sodium 100 mls @ 100 mls/hr 09/09/18 10:15 09/11/18 21:02 Chloride IVPB 100 mls/hr Q12 CARMEN Administration Protocol Micafungin Sodium 100 mg/ 100 mls @ 100 mls/hr 09/09/18 14:30 09/11/18 08:41 Sodium Chloride IVPB 100 mls/hr DAILY CARMEN Administration Protocol Vancomycin HCl 750 mg/ Sodium 250 mls @ 166.667 mls/hr 09/10/18 09:00 09/11/18 08:43 Chloride IVPB 166.667 mls/hr DAILY CARMEN Administration Protocol Insulin Detemir 20 units 09/08/18 09:00 09/11/18 08:40 Levemir SC 20 units DAILY CARMEN Administration Insulin Human Lispro 0 units 09/12/18 10:00 Humalog SC Q6 CARMEN Protocol Lorazepam 0.5 mg 09/09/18 14:14 09/12/18 04:34 Ativan IVP 0.5 mg Q6 PRN Administration Agitation Meclizine HCl 12.5 mg 08/13/18 09:00 08/18/18 09:27 Antivert PO 12.5 mg DAILY CARMEN Administration Metformin HCl 1,000 mg 08/13/18 09:00 08/16/18 09:34 Glucophage PO Not Given BID CARMEN Methylprednisolone 60 mg 09/08/18 15:15 09/12/18 04:35 Solu-Medrol IV 60 mg Q6H CARMEN Administration Metoprolol Tartrate 25 mg 09/09/18 22:00 09/12/18 04:34 Lopressor PO 25 mg Q6 CARMEN Administration Morphine Sulfate 1 mg 09/09/18 14:15 09/12/18 07:33 Morphine IVP 1 mg Q6 PRN Administration Agitation Nystatin 1 applic 09/05/18 17:00 09/11/18 16:28 Nystop Topical Powder TOP 1 applic TID CARMEN Administration Pantoprazole Sodium 40 mg 09/01/18 14:00 09/11/18 08:42 Protonix Susp NG 40 mg DAILY CARMEN Administration Sucralfate 1 gm 08/14/18 20:30 08/18/18 22:07 Carafate Oral Susp PO 1 gm ACHS CARMEN Administration - Patient Studies Lab Studies: Lab Studies 09/12/18 09/12/18 09/12/18 Range/Units 04:51 04:30 04:30 WBC 16.6 H (4.8-10.8) K/uL RBC 3.49 L (3.80-5.20) Mil/uL Hgb 9.9 L (12.0-16.0) g/dL Hct 31.1 L (34.0-47.0) % MCV 89.0 (81.0-99.0) fl MCH 28.4 (27.0-31.0) pg MCHC 31.9 L (33.0-37.0) g/dL RDW 23.6 H (11.5-14.5) % Plt Count 215 (130-400) K/uL MPV (7.2-11.7) fl Neut % (Auto) (50.0-75.0) % Lymph % (Auto) (20.0-40.0) % [place] % (Auto) (0.0-10.0) % Eos % (Auto) (0.0-4.0) % Baso % (Auto) (0.0-2.0) % Neut # (Auto) (1.8-7.0) K/uL Lymph # (Auto) (1.0-4.3) K/uL [place] # (Auto) (0.0-0.8) K/uL Eos # (Auto) (0.0-0.7) K/uL Baso # (Auto) (0.0-0.2) K/uL Neutrophils % (Manual) (42-75) % Lymphocytes % (Manual) (20-50) % Monocytes % (Manual) (0-10) % Platelet Estimate (NORMAL) Large Platelets Poikilocytosis (manual Anisocytosis (manual) Tear Drop Cells Ovalocytes ESR (0-30) mm/hr pCO2 (35-45) mm/Hg pO2 (80-100) mm/Hg HCO3 (21-28) mmol/L ABG pH (7.35-7.45) ABG Total CO2 (22-28) mmol/L ABG O2 Saturation (95-98) % ABG O2 Content (15-23) ML/dL ABG Base Excess (-2.0-3.0) mmol/L ABG Hemoglobin (11.7-17.4) g/dL ABG Carboxyhemoglobin (0.5-1.5) % POC ABG HHb (Measured) (0.0-5.0) % ABG Methemoglobin (0.0-3.0) % ABG O2 Capacity (16-24) mL/dL Masoud Test A-a O2 Difference mm/Hg Hgb O2 Saturation (95.0-98.0) % Vent Mode Mechanical Rate FiO2 % Tidal Volume PEEP Sodium 152 H (132-148) mmol/l Potassium 3.9 (3.6-5.0) MMOL/L Chloride 112 H (98-107) mmol/L Carbon Dioxide 28 (22-30) mmol/L Anion Gap 16 (10-20) BUN 70 H (7-17) mg/dl Creatinine 1.3 H (0.7-1.2) mg/dl Est GFR ( Amer) 48 Est GFR (Non-Af Amer) 40 POC Glucose (mg/dL) 392 H (65-110) mg/dL Random Glucose 439 H* (65-105) mg/dL Lactic Acid (0.7-2.1) MMOL/L Calcium 7.9 L (8.4-10.2) mg/dL Magnesium (1.6-2.3) MG/DL Total Bilirubin 1.0 (0.2-1.3) mg/dl AST 60 H (14-36) U/L ALT 52 (9-52) U/L Alkaline Phosphatase 168 H D (38-126) U/L NT-Pro-B Natriuret Pep (0-900) pg/ml Total Protein 6.0 L (6.3-8.2) G/DL Albumin 3.3 L (3.5-5.0) g/dL Globulin 2.8 (2.2-3.9) gm/dL Albumin/Globulin Ratio 1.2 (1.0-2.1) Vancomycin Trough (5.0-10.0) ug/mL 09/12/18 09/12/18 09/12/18 Range/Units 04:30 04:30 04:30 WBC (4.8-10.8) K/uL RBC (3.80-5.20) Mil/uL Hgb (12.0-16.0) g/dL Hct (34.0-47.0) % MCV (81.0-99.0) fl MCH (27.0-31.0) pg MCHC (33.0-37.0) g/dL RDW (11.5-14.5) % Plt Count (130-400) K/uL MPV (7.2-11.7) fl Neut % (Auto) (50.0-75.0) % Lymph % (Auto) (20.0-40.0) % [place] % (Auto) (0.0-10.0) % Eos % (Auto) (0.0-4.0) % Baso % (Auto) (0.0-2.0) % Neut # (Auto) (1.8-7.0) K/uL Lymph # (Auto) (1.0-4.3) K/uL [place] # (Auto) (0.0-0.8) K/uL Eos # (Auto) (0.0-0.7) K/uL Baso # (Auto) (0.0-0.2) K/uL Neutrophils % (Manual) (42-75) % Lymphocytes % (Manual) (20-50) % Monocytes % (Manual) (0-10) % Platelet Estimate (NORMAL) Large Platelets Poikilocytosis (manual Anisocytosis (manual) Tear Drop Cells Ovalocytes ESR (0-30) mm/hr pCO2 (35-45) mm/Hg pO2 (80-100) mm/Hg HCO3 (21-28) mmol/L ABG pH (7.35-7.45) ABG Total CO2 (22-28) mmol/L ABG O2 Saturation (95-98) % ABG O2 Content (15-23) ML/dL ABG Base Excess (-2.0-3.0) mmol/L ABG Hemoglobin (11.7-17.4) g/dL ABG Carboxyhemoglobin (0.5-1.5) % POC ABG HHb (Measured) (0.0-5.0) % ABG Methemoglobin (0.0-3.0) % ABG O2 Capacity (16-24) mL/dL Masoud Test A-a O2 Difference mm/Hg Hgb O2 Saturation (95.0-98.0) % Vent Mode Mechanical Rate FiO2 % Tidal Volume PEEP Sodium (132-148) mmol/l Potassium (3.6-5.0) MMOL/L Chloride (98-107) mmol/L Carbon Dioxide (22-30) mmol/L Anion Gap (10-20) BUN (7-17) mg/dl Creatinine (0.7-1.2) mg/dl Est GFR ( Amer) Est GFR (Non-Af Amer) POC Glucose (mg/dL) (65-110) mg/dL Random Glucose (65-105) mg/dL Lactic Acid 3.1 H (0.7-2.1) MMOL/L Calcium (8.4-10.2) mg/dL Magnesium 2.5 H (1.6-2.3) MG/DL Total Bilirubin (0.2-1.3) mg/dl AST (14-36) U/L ALT (9-52) U/L Alkaline Phosphatase (38-126) U/L NT-Pro-B Natriuret Pep 64717 H (0-900) pg/ml Total Protein (6.3-8.2) G/DL Albumin (3.5-5.0) g/dL Globulin (2.2-3.9) gm/dL Albumin/Globulin Ratio (1.0-2.1) Vancomycin Trough 9.9 (5.0-10.0) ug/mL 09/12/18 09/11/18 09/11/18 Range/Units 04:06 21:46 15:14 WBC (4.8-10.8) K/uL RBC (3.80-5.20) Mil/uL Hgb (12.0-16.0) g/dL Hct (34.0-47.0) % MCV (81.0-99.0) fl MCH (27.0-31.0) pg MCHC (33.0-37.0) g/dL RDW (11.5-14.5) % Plt Count (130-400) K/uL MPV (7.2-11.7) fl Neut % (Auto) (50.0-75.0) % Lymph % (Auto) (20.0-40.0) % [place] % (Auto) (0.0-10.0) % Eos % (Auto) (0.0-4.0) % Baso % (Auto) (0.0-2.0) % Neut # (Auto) (1.8-7.0) K/uL Lymph # (Auto) (1.0-4.3) K/uL [place] # (Auto) (0.0-0.8) K/uL Eos # (Auto) (0.0-0.7) K/uL Baso # (Auto) (0.0-0.2) K/uL Neutrophils % (Manual) (42-75) % Lymphocytes % (Manual) (20-50) % Monocytes % (Manual) (0-10) % Platelet Estimate (NORMAL) Large Platelets Poikilocytosis (manual Anisocytosis (manual) Tear Drop Cells Ovalocytes ESR (0-30) mm/hr pCO2 40 (35-45) mm/Hg pO2 51 L (80-100) mm/Hg HCO3 29.9 H (21-28) mmol/L ABG pH 7.49 H (7.35-7.45) ABG Total CO2 31.7 H (22-28) mmol/L ABG O2 Saturation 89.6 L (95-98) % ABG O2 Content 12.4 L (15-23) ML/dL ABG Base Excess 6.6 H (-2.0-3.0) mmol/L ABG Hemoglobin 10.2 L (11.7-17.4) g/dL ABG Carboxyhemoglobin 1.7 H (0.5-1.5) % POC ABG HHb (Measured) 10.0 H (0.0-5.0) % ABG Methemoglobin 1.8 (0.0-3.0) % ABG O2 Capacity 13.8 L (16-24) mL/dL Masoud Test Yes A-a O2 Difference 184.0 mm/Hg Hgb O2 Saturation 86.6 L (95.0-98.0) % Vent Mode A/c Mechanical Rate 14 FiO2 40.0 % Tidal Volume 400 PEEP 7 Sodium (132-148) mmol/l Potassium (3.6-5.0) MMOL/L Chloride (98-107) mmol/L Carbon Dioxide (22-30) mmol/L Anion Gap (10-20) BUN (7-17) mg/dl Creatinine (0.7-1.2) mg/dl Est GFR ( Amer) Est GFR (Non-Af Amer) POC Glucose (mg/dL) 382 H 396 H (65-110) mg/dL Random Glucose (65-105) mg/dL Lactic Acid (0.7-2.1) MMOL/L Calcium (8.4-10.2) mg/dL Magnesium (1.6-2.3) MG/DL Total Bilirubin (0.2-1.3) mg/dl AST (14-36) U/L ALT (9-52) U/L Alkaline Phosphatase (38-126) U/L NT-Pro-B Natriuret Pep (0-900) pg/ml Total Protein (6.3-8.2) G/DL Albumin (3.5-5.0) g/dL Globulin (2.2-3.9) gm/dL Albumin/Globulin Ratio (1.0-2.1) Vancomycin Trough (5.0-10.0) ug/mL 09/11/18 09/11/18 09/11/18 Range/Units 11:02 08:45 08:45 WBC 14.6 H (4.8-10.8) K/uL RBC 3.20 L (3.80-5.20) Mil/uL Hgb 8.8 L (12.0-16.0) g/dL Hct 27.9 L (34.0-47.0) % MCV 87.2 (81.0-99.0) fl MCH 27.6 (27.0-31.0) pg MCHC 31.6 L (33.0-37.0) g/dL RDW 23.7 H (11.5-14.5) % Plt Count 205 (130-400) K/uL MPV 9.0 (7.2-11.7) fl Neut % (Auto) 91.2 H (50.0-75.0) % Lymph % (Auto) 2.5 L (20.0-40.0) % [place] % (Auto) 6.1 (0.0-10.0) % Eos % (Auto) 0.0 (0.0-4.0) % Baso % (Auto) 0.2 (0.0-2.0) % Neut # (Auto) 13.3 H (1.8-7.0) K/uL Lymph # (Auto) 0.4 L (1.0-4.3) K/uL [place] # (Auto) 0.9 H (0.0-0.8) K/uL Eos # (Auto) 0.0 (0.0-0.7) K/uL Baso # (Auto) 0.0 (0.0-0.2) K/uL Neutrophils % (Manual) 91 H (42-75) % Lymphocytes % (Manual) 2 L (20-50) % Monocytes % (Manual) 7 (0-10) % Platelet Estimate Normal (NORMAL) Large Platelets Present Poikilocytosis (manual Slight Anisocytosis (manual) Moderate Tear Drop Cells Slight Ovalocytes Slight ESR 37 H (0-30) mm/hr pCO2 (35-45) mm/Hg pO2 (80-100) mm/Hg HCO3 (21-28) mmol/L ABG pH (7.35-7.45) ABG Total CO2 (22-28) mmol/L ABG O2 Saturation (95-98) % ABG O2 Content (15-23) ML/dL ABG Base Excess (-2.0-3.0) mmol/L ABG Hemoglobin (11.7-17.4) g/dL ABG Carboxyhemoglobin (0.5-1.5) % POC ABG HHb (Measured) (0.0-5.0) % ABG Methemoglobin (0.0-3.0) % ABG O2 Capacity (16-24) mL/dL Masoud Test A-a O2 Difference mm/Hg Hgb O2 Saturation (95.0-98.0) % Vent Mode Mechanical Rate FiO2 % Tidal Volume PEEP Sodium (132-148) mmol/l Potassium (3.6-5.0) MMOL/L Chloride (98-107) mmol/L Carbon Dioxide (22-30) mmol/L Anion Gap (10-20) BUN (7-17) mg/dl Creatinine (0.7-1.2) mg/dl Est GFR ( Amer) Est GFR (Non-Af Amer) POC Glucose (mg/dL) 449 H* (65-110) mg/dL Random Glucose (65-105) mg/dL Lactic Acid (0.7-2.1) MMOL/L Calcium (8.4-10.2) mg/dL Magnesium (1.6-2.3) MG/DL Total Bilirubin (0.2-1.3) mg/dl AST (14-36) U/L ALT (9-52) U/L Alkaline Phosphatase (38-126) U/L NT-Pro-B Natriuret Pep (0-900) pg/ml Total Protein (6.3-8.2) G/DL Albumin (3.5-5.0) g/dL Globulin (2.2-3.9) gm/dL Albumin/Globulin Ratio (1.0-2.1) Vancomycin Trough (5.0-10.0) ug/mL 09/11/18 Range/Units 04:00 WBC (4.8-10.8) K/uL RBC (3.80-5.20) Mil/uL Hgb (12.0-16.0) g/dL Hct (34.0-47.0) % MCV (81.0-99.0) fl MCH (27.0-31.0) pg MCHC (33.0-37.0) g/dL RDW (11.5-14.5) % Plt Count (130-400) K/uL MPV (7.2-11.7) fl Neut % (Auto) (50.0-75.0) % Lymph % (Auto) (20.0-40.0) % [place] % (Auto) (0.0-10.0) % Eos % (Auto) (0.0-4.0) % Baso % (Auto) (0.0-2.0) % Neut # (Auto) (1.8-7.0) K/uL Lymph # (Auto) (1.0-4.3) K/uL [place] # (Auto) (0.0-0.8) K/uL Eos # (Auto) (0.0-0.7) K/uL Baso # (Auto) (0.0-0.2) K/uL Neutrophils % (Manual) (42-75) % Lymphocytes % (Manual) (20-50) % Monocytes % (Manual) (0-10) % Platelet Estimate (NORMAL) Large Platelets Poikilocytosis (manual Anisocytosis (manual) Tear Drop Cells Ovalocytes ESR (0-30) mm/hr pCO2 (35-45) mm/Hg pO2 (80-100) mm/Hg HCO3 (21-28) mmol/L ABG pH (7.35-7.45) ABG Total CO2 (22-28) mmol/L ABG O2 Saturation (95-98) % ABG O2 Content (15-23) ML/dL ABG Base Excess (-2.0-3.0) mmol/L ABG Hemoglobin (11.7-17.4) g/dL ABG Carboxyhemoglobin (0.5-1.5) % POC ABG HHb (Measured) (0.0-5.0) % ABG Methemoglobin (0.0-3.0) % ABG O2 Capacity (16-24) mL/dL Masoud Test A-a O2 Difference mm/Hg Hgb O2 Saturation (95.0-98.0) % Vent Mode Mechanical Rate FiO2 % Tidal Volume PEEP Sodium 151 H (132-148) mmol/l Potassium 3.6 (3.6-5.0) MMOL/L Chloride 116 H (98-107) mmol/L Carbon Dioxide 22 (22-30) mmol/L Anion Gap 17 (10-20) BUN 59 H (7-17) mg/dl Creatinine 1.2 (0.7-1.2) mg/dl Est GFR ( Amer) 53 Est GFR (Non-Af Amer) 44 POC Glucose (mg/dL) (65-110) mg/dL Random Glucose 376 H (65-105) mg/dL Lactic Acid (0.7-2.1) MMOL/L Calcium 7.8 L (8.4-10.2) mg/dL Magnesium (1.6-2.3) MG/DL Total Bilirubin 0.9 (0.2-1.3) mg/dl AST 63 H D (14-36) U/L ALT 46 (9-52) U/L Alkaline Phosphatase 132 H D (38-126) U/L NT-Pro-B Natriuret Pep (0-900) pg/ml Total Protein 5.8 L (6.3-8.2) G/DL Albumin 2.9 L (3.5-5.0) g/dL Globulin 2.9 (2.2-3.9) gm/dL Albumin/Globulin Ratio 1.0 (1.0-2.1) Vancomycin Trough (5.0-10.0) ug/mL Laboratory Results - last 24 hr 09/11/18 09/11/18 09/11/18 04:00 08:45 08:45 WBC 14.6 H RBC 3.20 L Hgb 8.8 L Hct 27.9 L MCV 87.2 MCH 27.6 MCHC 31.6 L RDW 23.7 H Plt Count 205 MPV 9.0 Neut % (Auto) 91.2 H Lymph % (Auto) 2.5 L [place] % (Auto) 6.1 Eos % (Auto) 0.0 Baso % (Auto) 0.2 Neut # (Auto) 13.3 H Lymph # (Auto) 0.4 L [place] # (Auto) 0.9 H Eos # (Auto) 0.0 Baso # (Auto) 0.0 Neutrophils % (Manual) 91 H Lymphocytes % (Manual) 2 L Monocytes % (Manual) 7 Platelet Estimate Normal Large Platelets Present Poikilocytosis (manual Slight Anisocytosis (manual) Moderate Tear Drop Cells Slight Ovalocytes Slight ESR 37 H pCO2 pO2 HCO3 ABG pH ABG Total CO2 ABG O2 Saturation ABG O2 Content ABG Base Excess ABG Hemoglobin ABG Carboxyhemoglobin POC ABG HHb (Measured) ABG Methemoglobin ABG O2 Capacity Masoud Test A-a O2 Difference Hgb O2 Saturation Vent Mode Mechanical Rate FiO2 Tidal Volume PEEP Sodium 151 H Potassium 3.6 Chloride 116 H Carbon Dioxide 22 Anion Gap 17 BUN 59 H Creatinine 1.2 Est GFR ( Amer) 53 Est GFR (Non-Af Amer) 44 POC Glucose (mg/dL) Random Glucose 376 H Lactic Acid Calcium 7.8 L Magnesium Total Bilirubin 0.9 AST 63 H D ALT 46 Alkaline Phosphatase 132 H D NT-Pro-B Natriuret Pep Total Protein 5.8 L Albumin 2.9 L Globulin 2.9 Albumin/Globulin Ratio 1.0 Vancomycin Trough 09/11/18 09/11/18 09/11/18 11:02 15:14 21:46 WBC RBC Hgb Hct MCV MCH MCHC RDW Plt Count MPV Neut % (Auto) Lymph % (Auto) [place] % (Auto) Eos % (Auto) Baso % (Auto) Neut # (Auto) Lymph # (Auto) [place] # (Auto) Eos # (Auto) Baso # (Auto) Neutrophils % (Manual) Lymphocytes % (Manual) Monocytes % (Manual) Platelet Estimate Large Platelets Poikilocytosis (manual Anisocytosis (manual) Tear Drop Cells Ovalocytes ESR pCO2 pO2 HCO3 ABG pH ABG Total CO2 ABG O2 Saturation ABG O2 Content ABG Base Excess ABG Hemoglobin ABG Carboxyhemoglobin POC ABG HHb (Measured) ABG Methemoglobin ABG O2 Capacity Masoud Test A-a O2 Difference Hgb O2 Saturation Vent Mode Mechanical Rate FiO2 Tidal Volume PEEP Sodium Potassium Chloride Carbon Dioxide Anion Gap BUN Creatinine Est GFR ( Amer) Est GFR (Non-Af Amer) POC Glucose (mg/dL) 449 H* 396 H 382 H Random Glucose Lactic Acid Calcium Magnesium Total Bilirubin AST ALT Alkaline Phosphatase NT-Pro-B Natriuret Pep Total Protein Albumin Globulin Albumin/Globulin Ratio Vancomycin Trough 09/12/18 09/12/18 09/12/18 04:06 04:30 04:30 WBC RBC Hgb Hct MCV MCH MCHC RDW Plt Count MPV Neut % (Auto) Lymph % (Auto) [place] % (Auto) Eos % (Auto) Baso % (Auto) Neut # (Auto) Lymph # (Auto) [place] # (Auto) Eos # (Auto) Baso # (Auto) Neutrophils % (Manual) Lymphocytes % (Manual) Monocytes % (Manual) Platelet Estimate Large Platelets Poikilocytosis (manual Anisocytosis (manual) Tear Drop Cells Ovalocytes ESR pCO2 40 pO2 51 L HCO3 29.9 H ABG pH 7.49 H ABG Total CO2 31.7 H ABG O2 Saturation 89.6 L ABG O2 Content 12.4 L ABG Base Excess 6.6 H ABG Hemoglobin 10.2 L ABG Carboxyhemoglobin 1.7 H POC ABG HHb (Measured) 10.0 H ABG Methemoglobin 1.8 ABG O2 Capacity 13.8 L Masoud Test Yes A-a O2 Difference 184.0 Hgb O2 Saturation 86.6 L Vent Mode A/c Mechanical Rate 14 FiO2 40.0 Tidal Volume 400 PEEP 7 Sodium Potassium Chloride Carbon Dioxide Anion Gap BUN Creatinine Est GFR ( Amer) Est GFR (Non-Af Amer) POC Glucose (mg/dL) Random Glucose Lactic Acid 3.1 H Calcium Magnesium 2.5 H Total Bilirubin AST ALT Alkaline Phosphatase NT-Pro-B Natriuret Pep 69901 H Total Protein Albumin Globulin Albumin/Globulin Ratio Vancomycin Trough 09/12/18 09/12/18 09/12/18 04:30 04:30 04:30 WBC 16.6 H RBC 3.49 L Hgb 9.9 L Hct 31.1 L MCV 89.0 MCH 28.4 MCHC 31.9 L RDW 23.6 H Plt Count 215 MPV Neut % (Auto) Lymph % (Auto) [place] % (Auto) Eos % (Auto) Baso % (Auto) Neut # (Auto) Lymph # (Auto) [place] # (Auto) Eos # (Auto) Baso # (Auto) Neutrophils % (Manual) Lymphocytes % (Manual) Monocytes % (Manual) Platelet Estimate Large Platelets Poikilocytosis (manual Anisocytosis (manual) Tear Drop Cells Ovalocytes ESR pCO2 pO2 HCO3 ABG pH ABG Total CO2 ABG O2 Saturation ABG O2 Content ABG Base Excess ABG Hemoglobin ABG Carboxyhemoglobin POC ABG HHb (Measured) ABG Methemoglobin ABG O2 Capacity Masoud Test A-a O2 Difference Hgb O2 Saturation Vent Mode Mechanical Rate FiO2 Tidal Volume PEEP Sodium 152 H Potassium 3.9 Chloride 112 H Carbon Dioxide 28 Anion Gap 16 BUN 70 H Creatinine 1.3 H Est GFR ( Amer) 48 Est GFR (Non-Af Amer) 40 POC Glucose (mg/dL) Random Glucose 439 H* Lactic Acid Calcium 7.9 L Magnesium Total Bilirubin 1.0 AST 60 H ALT 52 Alkaline Phosphatase 168 H D NT-Pro-B Natriuret Pep Total Protein 6.0 L Albumin 3.3 L Globulin 2.8 Albumin/Globulin Ratio 1.2 Vancomycin Trough 9.9 09/12/18 04:51 WBC RBC Hgb Hct MCV MCH MCHC RDW Plt Count MPV Neut % (Auto) Lymph % (Auto) [place] % (Auto) Eos % (Auto) Baso % (Auto) Neut # (Auto) Lymph # (Auto) [place] # (Auto) Eos # (Auto) Baso # (Auto) Neutrophils % (Manual) Lymphocytes % (Manual) Monocytes % (Manual) Platelet Estimate Large Platelets Poikilocytosis (manual Anisocytosis (manual) Tear Drop Cells Ovalocytes ESR pCO2 pO2 HCO3 ABG pH ABG Total CO2 ABG O2 Saturation ABG O2 Content ABG Base Excess ABG Hemoglobin ABG Carboxyhemoglobin POC ABG HHb (Measured) ABG Methemoglobin ABG O2 Capacity Masoud Test A-a O2 Difference Hgb O2 Saturation Vent Mode Mechanical Rate FiO2 Tidal Volume PEEP Sodium Potassium Chloride Carbon Dioxide Anion Gap BUN Creatinine Est GFR ( Amer) Est GFR (Non-Af Amer) POC Glucose (mg/dL) 392 H Random Glucose Lactic Acid Calcium Magnesium Total Bilirubin AST ALT Alkaline Phosphatase NT-Pro-B Natriuret Pep Total Protein Albumin Globulin Albumin/Globulin Ratio Vancomycin Trough Radiology Impressions: Radiology Impressions Chest X-Ray 09/11/18 04:00 IMPRESSION: Tubes and catheters unchanged in position. Increased right perihilar and basilar patchy density with a perihilar density the unchanged. Pulmonary vascular congestion potentially increased. Continued clinical and radiographic monitoring advised. Fingerstick Blood Sugar Results: 392 Critical Care Progress Note - Ventilator Checklist Head of Bed 30 Degrees: Yes Daily Sedation Vacation: Yes Daily Assessment of Readiness to Wean: Yes Daily Spontaneous Breathing Trial: Yes PUD Prophalyxis: Yes DVT Prophylaxis: Yes Oral Care with Chlorhexidine Gluconate {CHG}: Yes Assessment/Plan (1) Acute respiratory failure Current Visit: Yes Status: Resolved Priority: High Comment: This morning Patient was placed on Patient placed on spontaneous breathing rial but did not tolerated, she became tachycardic and Tachypnic CXR and chest Ct scan consistant with bilateral pleural effusion, will arrange for IR thoracocentesis Patient evaluated by surgery and scheduled for Trcheostomy on Daily CAT/SBT (2) Cardiac arrest Current Visit: Yes Status: Acute Comment: All sedations discontinued, she is Awake, opens eyes to verbal stimuli and following commands Kep off sedations Frequent neuro check (3) NSTEMI (non-ST elevated myocardial infarction) Current Visit: Yes Status: Acute Priority: High (4) Bacteremia Current Visit: Yes Status: Deleted Priority: High Comment: Most recent culture from 08/19 (Blood, urine and sputum) negative Continue IV antibiotics with IV Vancomycin and Piperacillin Sod/Tazobactam (5) [place] (acute kidney injury) Current Visit: Yes Status: Acute (6) Aspiration pneumonia Current Visit: Yes Status: Acute Priority: High (7) Acute hypernatremia Current Visit: Yes Status: Acute Priority: High Comment: Free water flush increased from 250 cc Q 6H to 250 cc Q 4H (8) Cholelithiasis Current Visit: Yes Status: Acute - Assessment and Plan (Free Text) Assessment: # HOB maintained at 30 degrees. # GI/DVT PPX # Stress Ulcer prophylaxis with Protonix 40 mg IVP QD # DVT prophylaxis with Lovenox # Code Status: Full code Total critical care time 38 minutes
[2018-09-12] MEDS: Insulin Detemir 100 Units/ml Inj SC SCH (08:12)
[2018-09-12] MEDS: Cefepime 2 GM in Sodium Chloride 0.9% 100 ML IVPB SCH ×2 (08:14→21:10)
[2018-09-12] MEDS: Micafungin 100 MG in Sodium Chloride 0.9% 100 ML IVPB SCH (08:15)
[2018-09-12] MEDS: Pantoprazole 40 mg Susp UD NG SCH (08:16)
[2018-09-12] MEDS: Insulin Lispro (humaLOG) 100 Units/ml Inj SC SCH ×3 (09:05→21:24)
--- NOTE | 2018-09-12 09:17 | PN ---
PROCEDURE DATE: 09/11/2018 LOCATION: The patient in ICU, bed 434. TIME SPENT: 35 minutes. The patient is seen, evaluated at bedside. Past medical, surgical, family, social history reviewed. Clinical course since admission noted. SUBJECTIVE: A 73-year-old female, admitted to ICU, status post resuscitation from a Code Blue/cardiac arrest. The patient's video-assisted EEG showed no seizure activity. Extubated on 08/30/2018, failed extubation, re-intubated on 09/01/2018. Repeat CAT scan showed bilateral [id number] pleural effusion with right middle lobe and bilateral lower lobe consolidation, status post thoracentesis, drained 1600 mL of fluid from both sites together, attempted extubation on 09/08/2018, failed, re-intubated on 09/09/2018. Currently on AC rate of 12, tidal volume of 400, FIO2 40%, observed rate 24 minutes, ventilation 7.9 liters, FIO2 of 40%, saturating 99%, end-tidal CO2 of 13. Received sedation early this morning secondary to agitation. PHYSICAL EXAMINATION: VITAL SIGNS: Temperature 98.9, heart rate 84 to 115, blood pressure 101/48, mean arterial pressure 65, respiratory rate 90, oxygen saturation 99%. Intake 2724, output 2010, positive balance 714. Weight 162 pounds. HEAD, EYES, EARS, NOSE AND THROAT: Pupils reactive. Conjunctivae pink. Sclerae white. NECK: Supple. Trachea is central. CHEST: Bilateral breath sounds, reduced in intensity, bilateral crepitations. Bilateral scattered rhonchi. HEART: Rhythm regular. S1, S2 normal. ABDOMEN: Bowel sounds present. Soft. Rectal tube in place with leakage of stools. EXTREMITIES: 1+ edema. Soft restraints in place. No palpable cord on the lower extremities. NEUROLOGIC: Intubated on mechanical ventilation. received, remains agitated, requiring Ativan p.r.n. SKIN: Without rash. CURRENT MEDICATIONS: Include Tylenol 650 mg every 6 hours p.r.n. albumin at 12.5 g IV every 6 hours, Lasix 20 mg IV every 12 hours, albuterol/Atrovent inhalation 3 mL via nebulizer every 6 hours, aspirin 81 mg daily, cefepime 2 g IV every 12 hours, Proshield Plus skin protectant one application topically every 8 hours, Lovenox 70 mg daily, Lasix 20 mg IV every 12 hours, hydralazine 10 mg IV every 6 hours p.r.n., Levemir 20 units subcu daily, insulin lispro before meals and at bedtime, Ativan 0.5 mg IV every 6 hours p.r.n., Antivert 12.5 mg p.o. daily on hold, Glucophage on hold, Lopressor 25 mg every 6 hours, micafungin 100 mg IV daily, Nystatin powder one application topically t.i.d., Protonix 40 mg daily, sucralfate 1 g p.o. before meals and at bedtime, vancomycin 750 mg IV daily. LABORATORY DATA: WBC from this morning pending, yesterday 13.6, hemoglobin 10.2, platelet count of 240, random glucose 449. ProBNP 12,100, BUN 54, creatinine 1.3. Microbiology, urine culture positive for yeast. Sputum culture, yeast. Blood culture on 08/24/2018, vancomycin-resistant E. coli faecium. Chest x-ray from this morning, endotracheal tube in place, no pneumothorax. PICC line in place. Increased perihilar and basilar patchy density with perihilar density unchanged, pulmonary vascular congestion potentially increased. IMPRESSION: 1. Neurologic: Status post subacute infarct as documented on CAT scan of head on 08/23/2018. CT head on 08/27/2018 is reportedly normal. Status post cardiopulmonary resuscitation. No significant improvement in mental status. Suspected anoxic brain injury. Video-assisted electroencephalogram showed no acute abnormality including seizures. 2. Cardiac. Echo with bubble study showed ejection fraction 60% to 65%. No atrial septal defect or patent foramen ovale, status post cardiac arrest and respiratory failure. ProBNP remains elevated, unclear diastolic dysfunction. We will discuss with Cardiology. 3. Pulmonary: Respiratory failure, vent dependent, failed multiple extubations, bilateral pleural effusion with consolidation involving right middle bibasilar bilateral lower lobes, status post thoracentesis, fluid transudate. As per discussion with Pulmonary to place bilateral pigtail catheter in case fluid remains moderate to large to reduce atelectasis and to facilitate extubation if mental status improves. Continue albumin 12.5 g IV every 6 hours with Lasix 20 mg IV every 12 hours. 4. Renal: Acute kidney injury, multifocal. No labs available from this morning. If renal function gets worse, consider reducing Lasix. 5. Gastrointestinal: Cholelithiasis, but no cholecystitis. CT abdomen done recently shows no other acute pathology. 6. Infectious Disease. New onset fever yesterday, currently defervesced. New Jin in place, etiology unclear, likely aspiration pneumonia. 7. History of urinary tract infection with vancomycin-resistant enterococci faecium. Continue current antibiotic as recommended by infection disease consult. 8. History of deep venous thrombosis. Continue Lovenox 70 mg subcutaneous daily, adjusted for renal function and for body weight. We will hold if pleural catheter. Pleural catheter insertion is planned tomorrow 12 hours prior to the surgery. 9. Endocrinology: Hyperglycemia, currently on steroid. Continue insulin coverage. Maintain blood sugar less than 180. 10. Keep head of bed 30 degrees up, soft restraints for safety. Jin catheter for adequate intake and output. Mandeep Dioxn MD
--- NOTE | 2018-09-12 10:19 | RAD ---
Date of service: 09/12/2018 PROCEDURE: CHEST RADIOGRAPH, 1 VIEW HISTORY: Pt is on a vent, daily confirmation of ETT COMPARISON: 09/11/2018 FINDINGS: Endotracheal tube terminates 1.7 cm proximal to the kevon. The nasogastric tube terminates in the stomach. The left PICC line terminates in the SVC. LUNGS: There is worsening airspace disease in the lungs with worsening perihilar consolidations. PLEURA: Worsening effusions. No pneumothorax. CARDIOVASCULAR: Mild cardiomegaly. Atherosclerotic aortic arch calcifications are present. OSSEOUS STRUCTURES: Within normal limits for the patient's age. VISUALIZED UPPER ABDOMEN: Normal. OTHER FINDINGS: None. IMPRESSION: Worsening multifocal pneumonia versus pulmonary edema and pleural effusions. Stable position of endotracheal tube
--- NOTE | 2018-09-12 10:44 | CP.PCM.PN ---
Subjective - Date & Time of Evaluation Date of Evaluation: 09/12/18 Time of Evaluation: 10:44 - Subjective Subjective: Remain on respirator Patient appears to be restless somewhat Vital signs noted Objective - Vital Signs/Intake and Output Vital Signs (last 24 hours): Temp Pulse Resp BP Pulse Ox 100.8 F H 96 H 33 H 149/86 95 09/12/18 08:00 09/12/18 10:00 09/12/18 10:00 09/12/18 10:00 09/12/18 10:00 Intake and Output: 09/12/18 09/12/18 06:59 18:59 Intake Total 1200 800 Output Total 1000 600 Balance 200 200 - Medications Medications: Current Medications Acetaminophen (Tylenol 650mg/20.3ml Solution Ud) 650 mg NG Q6 PRN PRN Reason: Temperature Last Admin: 09/12/18 01:31 Dose: 650 mg Acetaminophen (Tylenol 650mg/20.3ml Solution Ud) 650 mg PO Q6 PRN PRN Reason: Pain, Mild (1-3) Last Admin: 09/02/18 05:54 Dose: 650 mg Albuterol/Ipratropium (Duoneb 3 Mg/0.5 Mg (3 Ml) Ud) 3 ml INH RQ6 [facility] Last Admin: 09/12/18 07:57 Dose: 3 ml Aspirin (Aspirin Chewable) 81 mg NG DAILY [facility] Last Admin: 09/12/18 08:18 Dose: 81 mg Dimethicone (Proshield Plus Skin Protectant) 1 applic TOP Q8 [facility] Last Admin: 09/12/18 08:16 Dose: 1 applic Furosemide (Lasix) 20 mg IVP Q12 [facility] Last Admin: 09/12/18 08:12 Dose: 20 mg Hydralazine HCl (Apresoline) 10 mg IV Q6 PRN PRN Reason: Systolic Blood Pressure Last Admin: 09/12/18 04:36 Dose: 10 mg Cefepime HCl 2 gm/ Sodium (Chloride) 100 mls @ 100 mls/hr IVPB Q12 [facility]; Protocol Last Admin: 09/12/18 08:14 Dose: 100 mls/hr Micafungin Sodium 100 mg/ (Sodium Chloride) 100 mls @ 100 mls/hr IVPB DAILY [facility]; Protocol Last Admin: 09/12/18 08:15 Dose: 100 mls/hr Vancomycin HCl 750 mg/ Sodium (Chloride) 250 mls @ 166.667 mls/hr IVPB DAILY [facility]; Protocol Last Admin: 09/12/18 08:17 Dose: 166.667 mls/hr Insulin Detemir (Levemir) 20 units SC DAILY [facility] Last Admin: 09/12/18 08:12 Dose: 20 units Insulin Human Lispro (Humalog) 0 units SC Q6 [facility]; Protocol Last Admin: 09/12/18 09:05 Dose: 10 unit Lorazepam (Ativan) 0.5 mg IVP Q6 PRN PRN Reason: Agitation Last Admin: 09/12/18 09:51 Dose: 0.5 mg Meclizine HCl (Antivert) 12.5 mg PO DAILY [facility] Last Admin: 08/18/18 09:27 Dose: 12.5 mg Metformin HCl (Glucophage) 1,000 mg PO BID [facility] Last Admin: 08/16/18 09:34 Dose: Not Given Methylprednisolone (Solu-Medrol) 60 mg IV Q6H [facility] Last Admin: 09/12/18 08:19 Dose: 60 mg Metoprolol Tartrate (Lopressor) 25 mg PO Q6 [facility] Last Admin: 09/12/18 09:06 Dose: 25 mg Morphine Sulfate (Morphine) 1 mg IVP Q6 PRN PRN Reason: Agitation Last Admin: 09/12/18 07:33 Dose: 1 mg Nystatin (Nystop Topical Powder) 1 applic TOP TID [facility] Last Admin: 09/12/18 08:16 Dose: 1 applic Pantoprazole Sodium (Protonix Susp) 40 mg NG DAILY [facility] Last Admin: 09/12/18 08:16 Dose: 40 mg Sucralfate (Carafate Oral Susp) 1 gm PO ACHS [facility] Last Admin: 08/18/18 22:07 Dose: 1 gm - Labs Labs: 09/12/18 04:30 09/12/18 04:30 PT 13.3 Seconds (9.8-13.1) H 08/25/18 05:00 INR 1.2 08/25/18 05:00 APTT 29.9 Seconds (25.6-37.1) 08/25/18 05:00 - Constitutional Appears: No Acute Distress - Eye Exam Eye Exam: Conjunctival injection - Neck Exam Neck Exam: absent: Lymphadenopathy - GI/Abdominal Exam GI & Abdominal Exam: Soft - Extremities Exam Extremities Exam: absent: Calf Tenderness - Back Exam Back Exam: absent: CVA tenderness (L), CVA tenderness (R) - Neurological Exam Neurological Exam: Altered - Psychiatric Exam Psychiatric exam: Flat Affect - Skin Skin Exam: absent: Cyanosis Assessment and Plan (1) [place] (acute kidney injury) Assessment & Plan: acute kidney injury related to multifactorial including sepsis serum creatinine around 1.3 Respiratory failure patient remain on respirator Sepsis [place] hypernatremia,corrected 152 hypokalemia corrected 4.1 plan respiratory management Avoid hypotension Antibiotics as per renal doses adjustment Status bilateral thoracocentesis on September 06, removal 800 cc from each side Worsening hypernatremia we will give water through the NG tube 200 cc every 4 hours Discussed with the ICU nurse Status: Acute (2) Acute gastroenteritis Status: Resolved (3) Anginal equivalent Status: Acute
[2018-09-12 11:44] LABS: PARTIAL THROMBOPLASTIN TIME 22.2 Seconds (25.6-37.1)
[2018-09-12 11:46] LABS: INR 1.2; PROTHROMBIN TIME 13.1 Seconds (9.8-13.1)
--- NOTE | 2018-09-12 12:48 | CP.PCM.CON ---
<Yazan Alvarado - Last Filed: 09/12/18 13:17> History of Present Illness - History of Present Illness History of Present Illness: General Surgery Consult Note for Dr. Maciel Consult: Trach 73 year old female, intubated and mechanically ventilated s/p cardiac arrest during HIDA scan, consulted for Tracheostomy placement after 3 unsuccessful extubation attempts. Patient is restless w/ restraints in place. Patient does not open eyes on command. Responds to pain stimuli. Current vent settings FiO2 40%, PEEP 7. ROS unobtainable secondary to patient mental status. Review of Systems - Review of Systems Systems not reviewed;Unavailable: Intubated Past Patient History - Past Medical History & Family History Past Medical History?: Yes Past Family History: Reviewed and not pertinent - Past Social History Smoking Status: Never Smoked Alcohol: None Drugs: Denies Home Situation {Lives}: With Family - CARDIAC Hx Cardiac Disorders: Yes Hx Hypertension: Yes Hx Pacemaker: No - PULMONARY Hx Respiratory Disorders: No - NEUROLOGICAL Hx Neurological Disorder: Yes Hx Dizziness: Yes - HEENT Hx HEENT Problems: No - RENAL Hx Chronic Kidney Disease: No - ENDOCRINE/METABOLIC Hx Endocrine Disorders: Yes Hx Diabetes Mellitus Type 2: Yes - HEMATOLOGICAL/ONCOLOGICAL Hx Blood Disorders: No Hx Cancer: No - INTEGUMENTARY Hx Dermatological Problems: No - MUSCULOSKELETAL/RHEUMATOLOGICAL Hx Musculoskeletal Disorders: Yes Hx Falls: Yes - GASTROINTESTINAL Hx Gastrointestinal Disorders: Yes Hx Gastritis: Yes - GENITOURINARY/GYNECOLOGICAL Hx Genitourinary Disorders: No - PSYCHIATRIC Hx Psychophysiologic Disorder: No Hx Substance Use: No - SURGICAL HISTORY Hx Surgeries: No Hx Mastectomy: No - ANESTHESIA Hx Anesthesia: No Meds Allergies/Adverse Reactions: Allergies Allergy/AdvReac Type Severity Reaction Status Date / Time No Known Allergies Allergy Verified 09/20/17 08:57 - Medications Medications: Current Medications Acetaminophen (Tylenol 650mg/20.3ml Solution Ud) 650 mg NG Q6 PRN PRN Reason: Temperature Last Admin: 09/12/18 01:31 Dose: 650 mg Acetaminophen (Tylenol 650mg/20.3ml Solution Ud) 650 mg PO Q6 PRN PRN Reason: Pain, Mild (1-3) Last Admin: 09/02/18 05:54 Dose: 650 mg Albuterol/Ipratropium (Duoneb 3 Mg/0.5 Mg (3 Ml) Ud) 3 ml INH RQ6 [facility] Last Admin: 09/12/18 07:57 Dose: 3 ml Aspirin (Aspirin Chewable) 81 mg NG DAILY [facility] Last Admin: 09/12/18 08:18 Dose: 81 mg Dimethicone (Proshield Plus Skin Protectant) 1 applic TOP Q8 [facility] Last Admin: 09/12/18 08:16 Dose: 1 applic Furosemide (Lasix) 20 mg IVP Q12 [facility] Last Admin: 09/12/18 08:12 Dose: 20 mg Hydralazine HCl (Apresoline) 10 mg IV Q6 PRN PRN Reason: Systolic Blood Pressure Last Admin: 09/12/18 04:36 Dose: 10 mg Cefepime HCl 2 gm/ Sodium (Chloride) 100 mls @ 100 mls/hr IVPB Q12 [facility]; Protocol Last Admin: 09/12/18 08:14 Dose: 100 mls/hr Micafungin Sodium 100 mg/ (Sodium Chloride) 100 mls @ 100 mls/hr IVPB DAILY [facility]; Protocol Last Admin: 09/12/18 08:15 Dose: 100 mls/hr Vancomycin HCl 750 mg/ Sodium (Chloride) 250 mls @ 166.667 mls/hr IVPB DAILY [facility]; Protocol Last Admin: 09/12/18 08:17 Dose: 166.667 mls/hr Insulin Detemir (Levemir) 20 units SC DAILY [facility] Last Admin: 09/12/18 08:12 Dose: 20 units Insulin Human Lispro (Humalog) 0 units SC Q6 [facility]; Protocol Last Admin: 09/12/18 09:05 Dose: 10 unit Lorazepam (Ativan) 0.5 mg IVP Q4 [facility] Last Admin: 09/12/18 11:47 Dose: 0.5 mg Meclizine HCl (Antivert) 12.5 mg PO DAILY [facility] Last Admin: 08/18/18 09:27 Dose: 12.5 mg Metformin HCl (Glucophage) 1,000 mg PO BID [facility] Last Admin: 08/16/18 09:34 Dose: Not Given Methylprednisolone (Solu-Medrol) 60 mg IV Q6H [facility] Last Admin: 09/12/18 08:19 Dose: 60 mg Metoprolol Tartrate (Lopressor) 25 mg PO Q6 [facility] Last Admin: 09/12/18 09:06 Dose: 25 mg Morphine Sulfate (Morphine) 1 mg IVP Q4 [facility] Last Admin: 09/12/18 11:48 Dose: 1 mg Nystatin (Nystop Topical Powder) 1 applic TOP TID [facility] Last Admin: 09/12/18 08:16 Dose: 1 applic Pantoprazole Sodium (Protonix Susp) 40 mg NG DAILY [facility] Last Admin: 09/12/18 08:16 Dose: 40 mg Sucralfate (Carafate Oral Susp) 1 gm PO ACHS [facility] Last Admin: 08/18/18 22:07 Dose: 1 gm Physical Exam - Constitutional Appears: Agitated - Head Exam Head Exam: ATRAUMATIC, NORMAL INSPECTION, NORMOCEPHALIC - Eye Exam Eye Exam: absent: EOMI - ENT Exam ENT Exam: Mucous Membranes Moist - Neck Exam Neck exam: Positive for: Normal Inspection. Negative for: Thyromegaly Additional comments: No visible scars - Respiratory Exam Additional comments: intubated and mechinically ventilated Results - Vital Signs Recent Vital Signs: Last Vital Signs Temp 97 F L 09/12/18 12:08 Pulse 85 09/12/18 12:00 Resp 23 09/12/18 12:00 BP 137/75 09/12/18 12:00 Pulse Ox 91 L 09/12/18 12:00 - Labs Result Diagrams: 09/12/18 04:30 09/12/18 04:30 Labs: Laboratory Results - last 24 hr 09/09/18 09/11/18 09/11/18 04:25 08:45 15:14 WBC RBC Hgb Hct MCV MCH MCHC RDW Plt Count Neutrophils % (Manual) 91 H Lymphocytes % (Manual) 2 L Monocytes % (Manual) 7 Platelet Estimate Normal Large Platelets Present Poikilocytosis (manual Slight Anisocytosis (manual) Moderate Tear Drop Cells Slight Ovalocytes Slight ESR PT INR APTT pCO2 pO2 HCO3 ABG pH ABG Total CO2 ABG O2 Saturation ABG O2 Content ABG Base Excess ABG Hemoglobin ABG Carboxyhemoglobin POC ABG HHb (Measured) ABG Methemoglobin ABG O2 Capacity Masoud Test A-a O2 Difference Hgb O2 Saturation Vent Mode Mechanical Rate FiO2 Tidal Volume PEEP Sodium Potassium Chloride Carbon Dioxide Anion Gap BUN Creatinine Est GFR ( Amer) Est GFR (Non-Af Amer) POC Glucose (mg/dL) 396 H Random Glucose Lactic Acid Calcium Magnesium Total Bilirubin AST ALT Alkaline Phosphatase NT-Pro-B Natriuret Pep Total Protein Albumin Globulin Albumin/Globulin Ratio Vancomycin Trough Tot Complement (CH50) >60 H 09/11/18 09/12/18 09/12/18 21:46 04:06 04:30 WBC RBC Hgb Hct MCV MCH MCHC RDW Plt Count Neutrophils % (Manual) Lymphocytes % (Manual) Monocytes % (Manual) Platelet Estimate Large Platelets Poikilocytosis (manual Anisocytosis (manual) Tear Drop Cells Ovalocytes ESR PT INR APTT pCO2 40 pO2 51 L HCO3 29.9 H ABG pH 7.49 H ABG Total CO2 31.7 H ABG O2 Saturation 89.6 L ABG O2 Content 12.4 L ABG Base Excess 6.6 H ABG Hemoglobin 10.2 L ABG Carboxyhemoglobin 1.7 H POC ABG HHb (Measured) 10.0 H ABG Methemoglobin 1.8 ABG O2 Capacity 13.8 L Masoud Test Yes A-a O2 Difference 184.0 Hgb O2 Saturation 86.6 L Vent Mode A/c Mechanical Rate 14 FiO2 40.0 Tidal Volume 400 PEEP 7 Sodium Potassium Chloride Carbon Dioxide Anion Gap BUN Creatinine Est GFR ( Amer) Est GFR (Non-Af Amer) POC Glucose (mg/dL) 382 H Random Glucose Lactic Acid Calcium Magnesium 2.5 H Total Bilirubin AST ALT Alkaline Phosphatase NT-Pro-B Natriuret Pep 30886 H Total Protein Albumin Globulin Albumin/Globulin Ratio Vancomycin Trough Tot Complement (CH50) 09/12/18 09/12/18 09/12/18 04:30 04:30 04:30 WBC 16.6 H RBC 3.49 L Hgb 9.9 L Hct 31.1 L MCV 89.0 MCH 28.4 MCHC 31.9 L RDW 23.6 H Plt Count 215 Neutrophils % (Manual) Lymphocytes % (Manual) Monocytes % (Manual) Platelet Estimate Large Platelets Poikilocytosis (manual Anisocytosis (manual) Tear Drop Cells Ovalocytes ESR PT INR APTT pCO2 pO2 HCO3 ABG pH ABG Total CO2 ABG O2 Saturation ABG O2 Content ABG Base Excess ABG Hemoglobin ABG Carboxyhemoglobin POC ABG HHb (Measured) ABG Methemoglobin ABG O2 Capacity Masoud Test A-a O2 Difference Hgb O2 Saturation Vent Mode Mechanical Rate FiO2 Tidal Volume PEEP Sodium Potassium Chloride Carbon Dioxide Anion Gap BUN Creatinine Est GFR ( Amer) Est GFR (Non-Af Amer) POC Glucose (mg/dL) Random Glucose Lactic Acid 3.1 H Calcium Magnesium Total Bilirubin AST ALT Alkaline Phosphatase NT-Pro-B Natriuret Pep Total Protein Albumin Globulin Albumin/Globulin Ratio Vancomycin Trough 9.9 Tot Complement (CH50) 09/12/18 09/12/18 09/12/18 04:30 04:51 08:00 WBC RBC Hgb Hct MCV MCH MCHC RDW Plt Count Neutrophils % (Manual) Lymphocytes % (Manual) Monocytes % (Manual) Platelet Estimate Large Platelets Poikilocytosis (manual Anisocytosis (manual) Tear Drop Cells Ovalocytes ESR 29 PT INR APTT pCO2 pO2 HCO3 ABG pH ABG Total CO2 ABG O2 Saturation ABG O2 Content ABG Base Excess ABG Hemoglobin ABG Carboxyhemoglobin POC ABG HHb (Measured) ABG Methemoglobin ABG O2 Capacity Masoud Test A-a O2 Difference Hgb O2 Saturation Vent Mode Mechanical Rate FiO2 Tidal Volume PEEP Sodium 152 H Potassium 3.9 Chloride 112 H Carbon Dioxide 28 Anion Gap 16 BUN 70 H Creatinine 1.3 H Est GFR ( Amer) 48 Est GFR (Non-Af Amer) 40 POC Glucose (mg/dL) 392 H Random Glucose 439 H* Lactic Acid Calcium 7.9 L Magnesium Total Bilirubin 1.0 AST 60 H ALT 52 Alkaline Phosphatase 168 H D NT-Pro-B Natriuret Pep Total Protein 6.0 L Albumin 3.3 L Globulin 2.8 Albumin/Globulin Ratio 1.2 Vancomycin Trough Tot Complement (CH50) 09/12/18 09/12/18 11:00 11:00 WBC RBC Hgb Hct MCV MCH MCHC RDW Plt Count Neutrophils % (Manual) Lymphocytes % (Manual) Monocytes % (Manual) Platelet Estimate Large Platelets Poikilocytosis (manual Anisocytosis (manual) Tear Drop Cells Ovalocytes ESR PT 13.1 INR 1.2 APTT 22.2 L pCO2 pO2 HCO3 ABG pH ABG Total CO2 ABG O2 Saturation ABG O2 Content ABG Base Excess ABG Hemoglobin ABG Carboxyhemoglobin POC ABG HHb (Measured) ABG Methemoglobin ABG O2 Capacity Masoud Test A-a O2 Difference Hgb O2 Saturation Vent Mode Mechanical Rate FiO2 Tidal Volume PEEP Sodium Potassium Chloride Carbon Dioxide Anion Gap BUN Creatinine Est GFR ( Amer) Est GFR (Non-Af Amer) POC Glucose (mg/dL) 491 H* Random Glucose Lactic Acid Calcium Magnesium Total Bilirubin AST ALT Alkaline Phosphatase NT-Pro-B Natriuret Pep Total Protein Albumin Globulin Albumin/Globulin Ratio Vancomycin Trough Tot Complement (CH50) Assessment & Plan - Assessment and Plan (Free Text) Assessment: 73F intubated and mechanically ventilated s/p 3 failed extubations Plan: Will schedule for Trach Will need consent for procedure and any clearances Continue to monitor respiratory status Further recs per Dr. Raheem Alvarado PGY1 <Denis Maciel - Last Filed: 09/12/18 13:52> Meds - Medications Medications: Current Medications Acetaminophen (Tylenol 650mg/20.3ml Solution Ud) 650 mg NG Q6 PRN PRN Reason: Temperature Last Admin: 09/12/18 01:31 Dose: 650 mg Acetaminophen (Tylenol 650mg/20.3ml Solution Ud) 650 mg PO Q6 PRN PRN Reason: Pain, Mild (1-3) Last Admin: 09/02/18 05:54 Dose: 650 mg Albuterol/Ipratropium (Duoneb 3 Mg/0.5 Mg (3 Ml) Ud) 3 ml INH RQ6 [facility] Last Admin: 09/12/18 07:57 Dose: 3 ml Aspirin (Aspirin Chewable) 81 mg NG DAILY [facility] Last Admin: 09/12/18 08:18 Dose: 81 mg Dimethicone (Proshield Plus Skin Protectant) 1 applic TOP Q8 [facility] Last Admin: 09/12/18 08:16 Dose: 1 applic Furosemide (Lasix) 20 mg IVP Q12 [facility] Last Admin: 09/12/18 08:12 Dose: 20 mg Hydralazine HCl (Apresoline) 10 mg IV Q6 PRN PRN Reason: Systolic Blood Pressure Last Admin: 09/12/18 04:36 Dose: 10 mg Cefepime HCl 2 gm/ Sodium (Chloride) 100 mls @ 100 mls/hr IVPB Q12 [facility]; Protocol Last Admin: 09/12/18 08:14 Dose: 100 mls/hr Micafungin Sodium 100 mg/ (Sodium Chloride) 100 mls @ 100 mls/hr IVPB DAILY [facility]; Protocol Last Admin: 09/12/18 08:15 Dose: 100 mls/hr Vancomycin HCl 750 mg/ Sodium (Chloride) 250 mls @ 166.667 mls/hr IVPB DAILY [facility]; Protocol Last Admin: 09/12/18 08:17 Dose: 166.667 mls/hr Insulin Detemir (Levemir) 20 units SC DAILY [facility] Last Admin: 09/12/18 08:12 Dose: 20 units Insulin Human Lispro (Humalog) 0 units SC Q6 [facility]; Protocol Last Admin: 09/12/18 09:05 Dose: 10 unit Lorazepam (Ativan) 0.5 mg IVP Q4 [facility] Last Admin: 09/12/18 12:59 Dose: 0.5 mg Meclizine HCl (Antivert) 12.5 mg PO DAILY [facility] Last Admin: 08/18/18 09:27 Dose: 12.5 mg Metformin HCl (Glucophage) 1,000 mg PO BID [facility] Last Admin: 08/16/18 09:34 Dose: Not Given Methylprednisolone (Solu-Medrol) 60 mg IV Q6H [facility] Last Admin: 09/12/18 08:19 Dose: 60 mg Metoprolol Tartrate (Lopressor) 25 mg PO Q6 [facility] Last Admin: 09/12/18 09:06 Dose: 25 mg Morphine Sulfate (Morphine) 1 mg IVP Q4 [facility] Last Admin: 09/12/18 13:00 Dose: 1 mg Nystatin (Nystop Topical Powder) 1 applic TOP TID [facility] Last Admin: 09/12/18 08:16 Dose: 1 applic Pantoprazole Sodium (Protonix Susp) 40 mg NG DAILY [facility] Last Admin: 09/12/18 08:16 Dose: 40 mg Sucralfate (Carafate Oral Susp) 1 gm PO ACHS [facility] Last Admin: 08/18/18 22:07 Dose: 1 gm Results - Vital Signs Recent Vital Signs: Last Vital Signs Temp 97 F L 09/12/18 12:08 Pulse 85 09/12/18 12:00 Resp 23 09/12/18 12:00 BP 137/75 09/12/18 12:00 Pulse Ox 91 L 09/12/18 12:00 - Labs Result Diagrams: 09/12/18 04:30 09/12/18 04:30 Labs: Laboratory Results - last 24 hr 09/09/18 09/11/18 09/11/18 04:25 08:45 15:14 WBC RBC Hgb Hct MCV MCH MCHC RDW Plt Count Neutrophils % (Manual) 91 H Lymphocytes % (Manual) 2 L Monocytes % (Manual) 7 Platelet Estimate Normal Large Platelets Present Poikilocytosis (manual Slight Anisocytosis (manual) Moderate Tear Drop Cells Slight Ovalocytes Slight ESR PT INR APTT pCO2 pO2 HCO3 ABG pH ABG Total CO2 ABG O2 Saturation ABG O2 Content ABG Base Excess ABG Hemoglobin ABG Carboxyhemoglobin POC ABG HHb (Measured) ABG Methemoglobin ABG O2 Capacity Masoud Test A-a O2 Difference Hgb O2 Saturation Vent Mode Mechanical Rate FiO2 Tidal Volume PEEP Sodium Potassium Chloride Carbon Dioxide Anion Gap BUN Creatinine Est GFR ( Amer) Est GFR (Non-Af Amer) POC Glucose (mg/dL) 396 H Random Glucose Lactic Acid Calcium Magnesium Total Bilirubin AST ALT Alkaline Phosphatase NT-Pro-B Natriuret Pep Total Protein Albumin Globulin Albumin/Globulin Ratio Vancomycin Trough Tot Complement (CH50) >60 H 09/11/18 09/12/18 09/12/18 21:46 04:06 04:30 WBC RBC Hgb Hct MCV MCH MCHC RDW Plt Count Neutrophils % (Manual) Lymphocytes % (Manual) Monocytes % (Manual) Platelet Estimate Large Platelets Poikilocytosis (manual Anisocytosis (manual) Tear Drop Cells Ovalocytes ESR PT INR APTT pCO2 40 pO2 51 L HCO3 29.9 H ABG pH 7.49 H ABG Total CO2 31.7 H ABG O2 Saturation 89.6 L ABG O2 Content 12.4 L ABG Base Excess 6.6 H ABG Hemoglobin 10.2 L ABG Carboxyhemoglobin 1.7 H POC ABG HHb (Measured) 10.0 H ABG Methemoglobin 1.8 ABG O2 Capacity 13.8 L Masoud Test Yes A-a O2 Difference 184.0 Hgb O2 Saturation 86.6 L Vent Mode A/c Mechanical Rate 14 FiO2 40.0 Tidal Volume 400 PEEP 7 Sodium Potassium Chloride Carbon Dioxide Anion Gap BUN Creatinine Est GFR ( Amer) Est GFR (Non-Af Amer) POC Glucose (mg/dL) 382 H Random Glucose Lactic Acid Calcium Magnesium 2.5 H Total Bilirubin AST ALT Alkaline Phosphatase NT-Pro-B Natriuret Pep 51019 H Total Protein Albumin Globulin Albumin/Globulin Ratio Vancomycin Trough Tot Complement (CH50) 09/12/18 09/12/18 09/12/18 04:30 04:30 04:30 WBC 16.6 H RBC 3.49 L Hgb 9.9 L Hct 31.1 L MCV 89.0 MCH 28.4 MCHC 31.9 L RDW 23.6 H Plt Count 215 Neutrophils % (Manual) Lymphocytes % (Manual) Monocytes % (Manual) Platelet Estimate Large Platelets Poikilocytosis (manual Anisocytosis (manual) Tear Drop Cells Ovalocytes ESR PT INR APTT pCO2 pO2 HCO3 ABG pH ABG Total CO2 ABG O2 Saturation ABG O2 Content ABG Base Excess ABG Hemoglobin ABG Carboxyhemoglobin POC ABG HHb (Measured) ABG Methemoglobin ABG O2 Capacity Masoud Test A-a O2 Difference Hgb O2 Saturation Vent Mode Mechanical Rate FiO2 Tidal Volume PEEP Sodium Potassium Chloride Carbon Dioxide Anion Gap BUN Creatinine Est GFR ( Amer) Est GFR (Non-Af Amer) POC Glucose (mg/dL) Random Glucose Lactic Acid 3.1 H Calcium Magnesium Total Bilirubin AST ALT Alkaline Phosphatase NT-Pro-B Natriuret Pep Total Protein Albumin Globulin Albumin/Globulin Ratio Vancomycin Trough 9.9 Tot Complement (CH50) 09/12/18 09/12/18 09/12/18 04:30 04:51 08:00 WBC RBC Hgb Hct MCV MCH MCHC RDW Plt Count Neutrophils % (Manual) Lymphocytes % (Manual) Monocytes % (Manual) Platelet Estimate Large Platelets Poikilocytosis (manual Anisocytosis (manual) Tear Drop Cells Ovalocytes ESR 29 PT INR APTT pCO2 pO2 HCO3 ABG pH ABG Total CO2 ABG O2 Saturation ABG O2 Content ABG Base Excess ABG Hemoglobin ABG Carboxyhemoglobin POC ABG HHb (Measured) ABG Methemoglobin ABG O2 Capacity Masoud Test A-a O2 Difference Hgb O2 Saturation Vent Mode Mechanical Rate FiO2 Tidal Volume PEEP Sodium 152 H Potassium 3.9 Chloride 112 H Carbon Dioxide 28 Anion Gap 16 BUN 70 H Creatinine 1.3 H Est GFR ( Amer) 48 Est GFR (Non-Af Amer) 40 POC Glucose (mg/dL) 392 H Random Glucose 439 H* Lactic Acid Calcium 7.9 L Magnesium Total Bilirubin 1.0 AST 60 H ALT 52 Alkaline Phosphatase 168 H D NT-Pro-B Natriuret Pep Total Protein 6.0 L Albumin 3.3 L Globulin 2.8 Albumin/Globulin Ratio 1.2 Vancomycin Trough Tot Complement (CH50) 09/12/18 09/12/18 11:00 11:00 WBC RBC Hgb Hct MCV MCH MCHC RDW Plt Count Neutrophils % (Manual) Lymphocytes % (Manual) Monocytes % (Manual) Platelet Estimate Large Platelets Poikilocytosis (manual Anisocytosis (manual) Tear Drop Cells Ovalocytes ESR PT 13.1 INR 1.2 APTT 22.2 L pCO2 pO2 HCO3 ABG pH ABG Total CO2 ABG O2 Saturation ABG O2 Content ABG Base Excess ABG Hemoglobin ABG Carboxyhemoglobin POC ABG HHb (Measured) ABG Methemoglobin ABG O2 Capacity Masoud Test A-a O2 Difference Hgb O2 Saturation Vent Mode Mechanical Rate FiO2 Tidal Volume PEEP Sodium Potassium Chloride Carbon Dioxide Anion Gap BUN Creatinine Est GFR ( Amer) Est GFR (Non-Af Amer) POC Glucose (mg/dL) 491 H* Random Glucose Lactic Acid Calcium Magnesium Total Bilirubin AST ALT Alkaline Phosphatase NT-Pro-B Natriuret Pep Total Protein Albumin Globulin Albumin/Globulin Ratio Vancomycin Trough Tot Complement (CH50) Assessment & Plan - Assessment and Plan (Free Text) Plan: addendum agree with above pt seen and examined with resident pt intubated unable to weaned from vent, has 3 failed extubation. PE: intubated, responds to painful stimuli supple trach midline coarse breath sounds bilaterally S1S2 abd soft, NT, ND A/P 73yo F with respiratory distress -hold ASA -cardio clearance -will schedule for tracheostomy possible 09/15 pending clearances
[2018-09-12] MEDS ORDERED: Lidocaine 1% Inj (20ml) ONE (13:30)
--- NOTE | 2018-09-12 14:09 | PCM.SURG1 ---
Surgeon's Initial Post Op Note - Surgeon's Notes Surgeon: Maxwell Malik MD Electrical Cad Technician: NONE Type of Anesthesia: Local Pre-Operative Diagnosis: Intubated, bilateral pleural effusion Operative Findings: US showed small to moderate right and left pleural effusion Post-Operative Diagnosis: Intubated, bilateral pleural effusion Operation Performed: Right and left pleural 8 fr pigtail drainage catheter placement. Specimen/Specimens Removed: none Estimated Blood Loss: EBL {In ML}: 2 Blood Products Given: N/A Drains Used: No Drains Post-Op Condition: Poor Date of Surgery/Procedure: 09/12/18 Time of Surgery/Procedure: 14:05
--- NOTE | 2018-09-12 16:35 | CP.PCM.PN ---
Subjective - Date & Time of Evaluation Date of Evaluation: 09/12/18 Time of Evaluation: 10:00 - Subjective Subjective: F/U respiratory failure. Pt restless, intubated Objective - Vital Signs/Intake and Output Vital Signs (last 24 hours): Temp Pulse Resp BP Pulse Ox 96.9 F L 87 20 132/65 100 09/12/18 16:00 09/12/18 16:16 09/12/18 16:00 09/12/18 16:16 09/12/18 16:00 Intake and Output: 09/12/18 09/12/18 06:59 18:59 Intake Total 1200 1500 Output Total 1000 2650 Balance 200 -1150 - Medications Medications: Current Medications Acetaminophen (Tylenol 650mg/20.3ml Solution Ud) 650 mg NG Q6 PRN PRN Reason: Temperature Last Admin: 09/12/18 01:31 Dose: 650 mg Acetaminophen (Tylenol 650mg/20.3ml Solution Ud) 650 mg PO Q6 PRN PRN Reason: Pain, Mild (1-3) Last Admin: 09/02/18 05:54 Dose: 650 mg Albuterol/Ipratropium (Duoneb 3 Mg/0.5 Mg (3 Ml) Ud) 3 ml INH RQ6 [facility] Last Admin: 09/12/18 07:57 Dose: 3 ml Aspirin (Aspirin Chewable) 81 mg NG DAILY [facility] Last Admin: 09/12/18 08:18 Dose: 81 mg Dimethicone (Proshield Plus Skin Protectant) 1 applic TOP Q8 [facility] Last Admin: 09/12/18 16:16 Dose: 1 applic Furosemide (Lasix) 20 mg IVP Q12 [facility] Last Admin: 09/12/18 08:12 Dose: 20 mg Hydralazine HCl (Apresoline) 10 mg IV Q6 PRN PRN Reason: Systolic Blood Pressure Last Admin: 09/12/18 04:36 Dose: 10 mg Cefepime HCl 2 gm/ Sodium (Chloride) 100 mls @ 100 mls/hr IVPB Q12 [facility]; Protocol Last Admin: 09/12/18 08:14 Dose: 100 mls/hr Micafungin Sodium 100 mg/ (Sodium Chloride) 100 mls @ 100 mls/hr IVPB DAILY [facility]; Protocol Last Admin: 09/12/18 08:15 Dose: 100 mls/hr Vancomycin HCl 750 mg/ Sodium (Chloride) 250 mls @ 166.667 mls/hr IVPB DAILY [facility]; Protocol Last Admin: 09/12/18 08:17 Dose: 166.667 mls/hr Insulin Detemir (Levemir) 20 units SC DAILY [facility] Last Admin: 09/12/18 08:12 Dose: 20 units Insulin Human Lispro (Humalog) 0 units SC Q6 [facility]; Protocol Last Admin: 09/12/18 16:33 Dose: 8 unit Lorazepam (Ativan) 0.5 mg IVP Q4 [facility] Last Admin: 09/12/18 12:59 Dose: 0.5 mg Meclizine HCl (Antivert) 12.5 mg PO DAILY [facility] Last Admin: 08/18/18 09:27 Dose: 12.5 mg Metformin HCl (Glucophage) 1,000 mg PO BID [facility] Last Admin: 08/16/18 09:34 Dose: Not Given Methylprednisolone (Solu-Medrol) 60 mg IV Q6H [facility] Last Admin: 09/12/18 16:17 Dose: 60 mg Metoprolol Tartrate (Lopressor) 25 mg PO Q6 [facility] Last Admin: 09/12/18 16:16 Dose: 25 mg Morphine Sulfate (Morphine) 1 mg IVP Q4 [facility] Last Admin: 09/12/18 13:00 Dose: 1 mg Nystatin (Nystop Topical Powder) 1 applic TOP TID [facility] Last Admin: 09/12/18 16:16 Dose: 1 applic Pantoprazole Sodium (Protonix Susp) 40 mg NG DAILY [facility] Last Admin: 09/12/18 08:16 Dose: 40 mg Sucralfate (Carafate Oral Susp) 1 gm PO ACHS [facility] Last Admin: 08/18/18 22:07 Dose: 1 gm - Labs Labs: 09/12/18 04:30 09/12/18 04:30 PT 13.1 Seconds (9.8-13.1) 09/12/18 11:00 INR 1.2 09/12/18 11:00 APTT 22.2 Seconds (25.6-37.1) L 09/12/18 11:00 - Constitutional Appears: No Acute Distress - Head Exam Head Exam: NORMAL INSPECTION - Eye Exam Eye Exam: PERRL - ENT Exam Additional comments: Intubated - Neck Exam Neck Exam: Normal Inspection - Respiratory Exam Respiratory Exam: Decreased Breath Sounds (at bases) - Cardiovascular Exam Cardiovascular Exam: REGULAR RHYTHM - GI/Abdominal Exam GI & Abdominal Exam: Soft, Normal Bowel Sounds - Extremities Exam Additional comments: edema - Neurological Exam Additional comments: Intubated, sedated, minimal response to tactile stimuli. - Skin Skin Exam: Warm Assessment and Plan (1) Acute respiratory failure Status: Resolved (2) Cardiac arrest Status: Resolved (3) Aspiration pneumonia Status: Acute (4) Pleural effusion Status: Acute (5) Atelectasis of both lungs Status: Acute (6) NSTEMI (non-ST elevated myocardial infarction) Status: Acute (7) CHF (congestive heart failure) Status: Acute (8) DVT (deep venous thrombosis) Status: Acute (9) Severe anemia Status: Resolved - Assessment and Plan (Free Text) Plan: IR today with for R-L pleural pigtail. evaluated by Surgeon and scheduled for Tracheotomy on 09/15/18. Neurology to re-evaluate mental status, continue Vanco, Cefepime, Micafungin and rest of Tx.Tx. Critical care time: 35 min.
[2018-09-12] MEDS: Enoxaparin 40 mg Syringe SC SCH (21:14)
[2018-09-13] MEDS: Proshield Plus GEL TOP SCH ×3 (01:00→16:23)
[2018-09-13] MEDS: Albuterol-Ipratrop 3 mg / 0.5 (3 ml) UD INH SCH ×4 (01:03→20:01)
[2018-09-13] MEDS: Insulin Lispro (humaLOG) 100 Units/ml Inj SC SCH ×4 (03:28→21:12)
[2018-09-13 03:46] LABS: PHOSPHATIDYLSERINE AB IGG 13 U/mL (<10); PHOSPHATIDYLSERINE AB IGM <25 U/mL (<25)
[2018-09-13 04:43] LABS: ABG ALLEN TEST YES; ARTERIAL BLOOD GAS HCO3 28.7 mmol/L (21-28); ARTERIAL BLOOD GAS O2 SAT 87.1 % (95-98); ARTERIAL BLOOD GAS PCO2 43 mm/Hg (35-45); ARTERIAL BLOOD GAS PH 7.45 (7.35-7.45); ARTERIAL BLOOD GAS PO2 49 mm/Hg (80-100); ARTERIAL BLOOD GAS TCO2 31.2 mmol/L (22-28)
--- NOTE | 2018-09-13 07:12 | CP.PCM.PN ---
Subjective - Date & Time of Evaluation Date of Evaluation: 09/13/18 Time of Evaluation: 07:11 - Subjective Subjective: Remained restless on respirator Vital signs noted to be stable Leukocytosis noted to be worsening somewhat Objective - Vital Signs/Intake and Output Vital Signs (last 24 hours): Temp Pulse Resp BP Pulse Ox 98.3 F 70 18 134/58 L 100 09/13/18 04:00 09/13/18 06:00 09/13/18 06:00 09/13/18 06:00 09/13/18 06:00 Intake and Output: 09/13/18 09/13/18 06:59 18:59 Intake Total 1150 Output Total 1530 Balance -380 - Medications Medications: Current Medications Acetaminophen (Tylenol 650mg/20.3ml Solution Ud) 650 mg NG Q6 PRN PRN Reason: Temperature Last Admin: 09/12/18 01:31 Dose: 650 mg Acetaminophen (Tylenol 650mg/20.3ml Solution Ud) 650 mg PO Q6 PRN PRN Reason: Pain, Mild (1-3) Last Admin: 09/02/18 05:54 Dose: 650 mg Albuterol/Ipratropium (Duoneb 3 Mg/0.5 Mg (3 Ml) Ud) 3 ml INH RQ6 [facility] Last Admin: 09/13/18 01:03 Dose: 3 ml Aspirin (Aspirin Chewable) 81 mg NG DAILY [facility] Last Admin: 09/12/18 08:18 Dose: 81 mg Dimethicone (Proshield Plus Skin Protectant) 1 applic TOP Q8 [facility] Last Admin: 09/13/18 01:00 Dose: 1 applic Enoxaparin Sodium (Lovenox) 40 mg SC DAILY [facility]; Protocol Last Admin: 09/12/18 21:14 Dose: 40 mg Furosemide (Lasix) 20 mg IVP Q12 [facility] Last Admin: 09/12/18 21:06 Dose: 20 mg Hydralazine HCl (Apresoline) 10 mg IV Q6 PRN PRN Reason: Systolic Blood Pressure Last Admin: 09/12/18 04:36 Dose: 10 mg Cefepime HCl 2 gm/ Sodium (Chloride) 100 mls @ 100 mls/hr IVPB Q12 [facility]; Protocol Last Admin: 09/12/18 21:10 Dose: 100 mls/hr Micafungin Sodium 100 mg/ (Sodium Chloride) 100 mls @ 100 mls/hr IVPB DAILY [facility]; Protocol Last Admin: 09/12/18 08:15 Dose: 100 mls/hr Vancomycin HCl 750 mg/ Sodium (Chloride) 250 mls @ 166.667 mls/hr IVPB DAILY [facility]; Protocol Last Admin: 09/12/18 08:17 Dose: 166.667 mls/hr Insulin Detemir (Levemir) 20 units SC DAILY [facility] Last Admin: 09/12/18 08:12 Dose: 20 units Insulin Human Lispro (Humalog) 0 units SC Q6 [facility]; Protocol Last Admin: 09/13/18 03:28 Dose: 10 unit Lorazepam (Ativan) 0.5 mg IVP Q4 [facility] Last Admin: 09/13/18 04:59 Dose: Not Given Meclizine HCl (Antivert) 12.5 mg PO DAILY [facility] Last Admin: 08/18/18 09:27 Dose: 12.5 mg Metformin HCl (Glucophage) 1,000 mg PO BID [facility] Last Admin: 08/16/18 09:34 Dose: Not Given Methylprednisolone (Solu-Medrol) 60 mg IV Q6H [facility] Last Admin: 09/13/18 03:27 Dose: 60 mg Metoprolol Tartrate (Lopressor) 25 mg PO Q6 [facility] Last Admin: 09/13/18 03:29 Dose: 25 mg Morphine Sulfate (Morphine) 1 mg IVP Q4 [facility] Last Admin: 09/13/18 04:56 Dose: 1 mg Nystatin (Nystop Topical Powder) 1 applic TOP TID [facility] Last Admin: 09/12/18 16:16 Dose: 1 applic Pantoprazole Sodium (Protonix Susp) 40 mg NG DAILY [facility] Last Admin: 09/12/18 08:16 Dose: 40 mg Sucralfate (Carafate Oral Susp) 1 gm PO ACHS [facility] Last Admin: 08/18/18 22:07 Dose: 1 gm - Labs Labs: 09/12/18 04:30 09/12/18 04:30 PT 13.1 Seconds (9.8-13.1) 09/12/18 11:00 INR 1.2 09/12/18 11:00 APTT 22.2 Seconds (25.6-37.1) L 09/12/18 11:00 - Constitutional Appears: Non-toxic, Combative - Eye Exam Eye Exam: Conjunctival injection - ENT Exam ENT Exam: Mucous Membranes Moist - Cardiovascular Exam Cardiovascular Exam: absent: Gallop, JVD, Rubs - GI/Abdominal Exam GI & Abdominal Exam: Soft, Normal Bowel Sounds - Extremities Exam Extremities Exam: absent: Calf Tenderness - Back Exam Back Exam: absent: CVA tenderness (L), CVA tenderness (R) - Neurological Exam Neurological Exam: Altered - Psychiatric Exam Psychiatric exam: Flat Affect - Skin Skin Exam: absent: Cyanosis Assessment and Plan (1) [place] (acute kidney injury) Assessment & Plan: Assessment & Plan: acute kidney injury related to multifactorial including sepsis serum creatinine around 1.3 Respiratory failure patient remain on respirator Sepsis [place] hypernatremia,corrected 152 hypokalemia corrected 4.1 Bilateral pleural effusion plan respiratory management Avoid hypotension Antibiotics as per renal doses adjustment Status bilateral thoracocentesis on September 06, removal 800 cc from each side Status post bilateral pleural insertion of catheter for drainage 09/12 Worsening hypernatremia we will give water through the NG tube 200 cc every 4 hours Repeat BMP pending for today Status: Acute (2) Acute gastroenteritis Status: Resolved (3) Anginal equivalent Status: Acute
--- NOTE | 2018-09-13 07:17 | CP.PCM.PN ---
Subjective - Date & Time of Evaluation Date of Evaluation: 09/13/18 Time of Evaluation: 07:15 - Subjective Subjective: General Surgery Progress Note for Dr. Maciel 73F seen and evaluated at bedside. No acute events overnight. Patient remains intubated and mechanically ventilated. Afebrile. Unable to obtain ROS. Objective - Vital Signs/Intake and Output Vital Signs (last 24 hours): Temp Pulse Resp BP Pulse Ox 98.3 F 70 18 134/58 L 100 09/13/18 04:00 09/13/18 06:00 09/13/18 06:00 09/13/18 06:00 09/13/18 06:00 Intake and Output: 09/13/18 09/13/18 06:59 18:59 Intake Total 1150 Output Total 1530 Balance -380 - Medications Medications: Current Medications Acetaminophen (Tylenol 650mg/20.3ml Solution Ud) 650 mg NG Q6 PRN PRN Reason: Temperature Last Admin: 09/12/18 01:31 Dose: 650 mg Acetaminophen (Tylenol 650mg/20.3ml Solution Ud) 650 mg PO Q6 PRN PRN Reason: Pain, Mild (1-3) Last Admin: 09/02/18 05:54 Dose: 650 mg Albuterol/Ipratropium (Duoneb 3 Mg/0.5 Mg (3 Ml) Ud) 3 ml INH RQ6 [facility] Last Admin: 09/13/18 01:03 Dose: 3 ml Aspirin (Aspirin Chewable) 81 mg NG DAILY [facility] Last Admin: 09/12/18 08:18 Dose: 81 mg Dimethicone (Proshield Plus Skin Protectant) 1 applic TOP Q8 [facility] Last Admin: 09/13/18 01:00 Dose: 1 applic Enoxaparin Sodium (Lovenox) 40 mg SC DAILY [facility]; Protocol Last Admin: 09/12/18 21:14 Dose: 40 mg Furosemide (Lasix) 20 mg IVP Q12 [facility] Last Admin: 09/12/18 21:06 Dose: 20 mg Hydralazine HCl (Apresoline) 10 mg IV Q6 PRN PRN Reason: Systolic Blood Pressure Last Admin: 09/12/18 04:36 Dose: 10 mg Cefepime HCl 2 gm/ Sodium (Chloride) 100 mls @ 100 mls/hr IVPB Q12 [facility]; Protocol Last Admin: 09/12/18 21:10 Dose: 100 mls/hr Micafungin Sodium 100 mg/ (Sodium Chloride) 100 mls @ 100 mls/hr IVPB DAILY [facility]; Protocol Last Admin: 09/12/18 08:15 Dose: 100 mls/hr Vancomycin HCl 750 mg/ Sodium (Chloride) 250 mls @ 166.667 mls/hr IVPB DAILY [facility]; Protocol Last Admin: 09/12/18 08:17 Dose: 166.667 mls/hr Insulin Detemir (Levemir) 20 units SC DAILY [facility] Last Admin: 09/12/18 08:12 Dose: 20 units Insulin Human Lispro (Humalog) 0 units SC Q6 [facility]; Protocol Last Admin: 09/13/18 03:28 Dose: 10 unit Lorazepam (Ativan) 0.5 mg IVP Q4 [facility] Last Admin: 09/13/18 04:59 Dose: Not Given Meclizine HCl (Antivert) 12.5 mg PO DAILY [facility] Last Admin: 08/18/18 09:27 Dose: 12.5 mg Metformin HCl (Glucophage) 1,000 mg PO BID [facility] Last Admin: 08/16/18 09:34 Dose: Not Given Methylprednisolone (Solu-Medrol) 60 mg IV Q6H [facility] Last Admin: 09/13/18 03:27 Dose: 60 mg Metoprolol Tartrate (Lopressor) 25 mg PO Q6 [facility] Last Admin: 09/13/18 03:29 Dose: 25 mg Morphine Sulfate (Morphine) 1 mg IVP Q4 [facility] Last Admin: 09/13/18 04:56 Dose: 1 mg Nystatin (Nystop Topical Powder) 1 applic TOP TID [facility] Last Admin: 09/12/18 16:16 Dose: 1 applic Pantoprazole Sodium (Protonix Susp) 40 mg NG DAILY [facility] Last Admin: 09/12/18 08:16 Dose: 40 mg Sucralfate (Carafate Oral Susp) 1 gm PO ACHS [facility] Last Admin: 08/18/18 22:07 Dose: 1 gm - Labs Labs: 09/12/18 04:30 09/12/18 04:30 PT 13.1 Seconds (9.8-13.1) 09/12/18 11:00 INR 1.2 09/12/18 11:00 APTT 22.2 Seconds (25.6-37.1) L 09/12/18 11:00 - Constitutional Appears: Agitated - Head Exam Head Exam: ATRAUMATIC, NORMAL INSPECTION, NORMOCEPHALIC - Eye Exam Eye Exam: absent: EOMI - ENT Exam ENT Exam: Mucous Membranes Moist - Respiratory Exam Additional comments: intubated and mechanically ventilated - Neurological Exam Neurological Exam: absent: Alert, Awake - Skin Skin Exam: Dry, Intact, Normal Color, Warm Assessment and Plan - Assessment and Plan (Free Text) Assessment: 73F w/ respiratory failure on vent Plan: Hold ASA Cardiac clearance Medically optimize and obtain consent for surgery Tracheostomy later this week Further recommendations per Dr. Raheem Alvarado PGY1
[2018-09-13 08:19] LABS: 23 KD (IGG) BAND Nonreactive
[2018-09-13] MEDS: Insulin Detemir 100 Units/ml Inj SC SCH (08:30)
[2018-09-13] MEDS: Enoxaparin 40 mg Syringe SC SCH (08:31)
[2018-09-13] MEDS: Pantoprazole 40 mg Susp UD NG SCH (08:32)
[2018-09-13] MEDS: Cefepime 2 GM in Sodium Chloride 0.9% 100 ML IVPB SCH ×2 (08:33→20:12)
--- NOTE | 2018-09-13 09:31 | RAD ---
Date of service: 09/13/2018 HISTORY: intubated COMPARISON: No prior. FINDINGS: LUNGS: Improving bilateral perihilar opacity consistent with resolving pulmonary edema. No new opacity elsewhere. PLEURA: No residual right pleural effusion status post placement of right pleural pigtail catheter. Possible trace left pleural effusion. No pneumothorax.. CARDIOVASCULAR: There is atherosclerotic calcification of the aortic arch. Normal heart size. Congestive change persists. Endotracheal tube and nasogastric tube are unchanged. OSSEOUS STRUCTURES: No significant abnormalities. VISUALIZED UPPER ABDOMEN: Normal. OTHER FINDINGS: None. IMPRESSION: Right pleural pigtail catheter. Resolved right pleural effusion. Improved pulmonary edema. No pneumothorax.
[2018-09-13] MEDS: Micafungin 100 MG in Sodium Chloride 0.9% 100 ML IVPB SCH (09:58)
--- NOTE | 2018-09-13 10:58 | CP.PCM.PN ---
Subjective - Date & Time of Evaluation Date of Evaluation: 09/13/18 Time of Evaluation: 10:52 - Subjective Subjective: General Surgery Pt seen and examined this AM. No visitors at bedside. Pt remains intubated and not responding. Last fever on 09/12 at 0800 of 100.8. 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 Labs and vitals noted. Na elevated, WBC trending up, lactic acid trending up PE Gen: Pt intubated, turning head side to side. Not responding to commands. Not opening eyes Skin: warm and dry Cardio: s1s2 RRR Lungs: (+) left sided chest tube, (+) rhonchi on bilateral lower lobes Abd: Soft, (-) distended, (-) apparent tenderness. : Rectal tube with dark brown liquid stool, Jin with dark clear yellow urine Extr: (-) calf swelling or erythema A/P Consulted for tracheostomy Pt needs to be medically optimized prior to any non-emergent surgical intervention. Monitor labs Monitor temps Pending cardio clearance Aspirin on hold Health care proxy is daughterLaura [phone] Objective - Vital Signs/Intake and Output Vital Signs (last 24 hours): Temp Pulse Resp BP Pulse Ox 97.9 F 88 17 161/71 H 100 09/13/18 08:00 09/13/18 10:00 09/13/18 10:00 09/13/18 10:00 09/13/18 10:00 Intake and Output: 09/13/18 09/13/18 06:59 18:59 Intake Total 1150 500 Output Total 1530 Balance -380 500 - Medications Medications: Current Medications Acetaminophen (Tylenol 650mg/20.3ml Solution Ud) 650 mg NG Q6 PRN PRN Reason: Temperature Last Admin: 09/12/18 01:31 Dose: 650 mg Acetaminophen (Tylenol 650mg/20.3ml Solution Ud) 650 mg PO Q6 PRN PRN Reason: Pain, Mild (1-3) Last Admin: 09/02/18 05:54 Dose: 650 mg Albuterol/Ipratropium (Duoneb 3 Mg/0.5 Mg (3 Ml) Ud) 3 ml INH RQ6 [facility] Last Admin: 09/13/18 07:56 Dose: 3 ml Aspirin (Aspirin Chewable) 81 mg NG DAILY [facility] Last Admin: 09/12/18 08:18 Dose: 81 mg Dimethicone (Proshield Plus Skin Protectant) 1 applic TOP Q8 [facility] Last Admin: 09/13/18 08:32 Dose: 1 applic Enoxaparin Sodium (Lovenox) 40 mg SC DAILY [facility]; Protocol Last Admin: 09/13/18 08:31 Dose: 40 mg Furosemide (Lasix) 20 mg IVP Q12 [facility] Last Admin: 09/13/18 08:30 Dose: 20 mg Hydralazine HCl (Apresoline) 10 mg IV Q6 PRN PRN Reason: Systolic Blood Pressure Last Admin: 09/12/18 04:36 Dose: 10 mg Cefepime HCl 2 gm/ Sodium (Chloride) 100 mls @ 100 mls/hr IVPB Q12 [facility]; Protocol Last Admin: 09/13/18 08:33 Dose: 100 mls/hr Micafungin Sodium 100 mg/ (Sodium Chloride) 100 mls @ 100 mls/hr IVPB DAILY [facility]; Protocol Last Admin: 09/13/18 09:58 Dose: 100 mls/hr Vancomycin HCl 750 mg/ Sodium (Chloride) 250 mls @ 166.667 mls/hr IVPB DAILY [facility]; Protocol Last Admin: 09/12/18 08:17 Dose: 166.667 mls/hr Insulin Detemir (Levemir) 20 units SC DAILY [facility] Last Admin: 09/13/18 08:30 Dose: 20 units Insulin Human Lispro (Humalog) 0 units SC Q6 [facility]; Protocol Last Admin: 09/13/18 10:04 Dose: 10 unit Lorazepam (Ativan) 0.5 mg IVP Q4 [facility] Last Admin: 09/13/18 09:57 Dose: Not Given Meclizine HCl (Antivert) 12.5 mg PO DAILY [facility] Last Admin: 08/18/18 09:27 Dose: 12.5 mg Metformin HCl (Glucophage) 1,000 mg PO BID [facility] Last Admin: 08/16/18 09:34 Dose: Not Given Methylprednisolone (Solu-Medrol) 60 mg IV Q6H [facility] Last Admin: 09/13/18 08:32 Dose: 60 mg Metoprolol Tartrate (Lopressor) 25 mg PO Q6 [facility] Last Admin: 09/13/18 09:59 Dose: 25 mg Morphine Sulfate (Morphine) 1 mg IVP Q4 [facility] Last Admin: 09/13/18 09:57 Dose: 1 mg Nystatin (Nystop Topical Powder) 1 applic TOP TID [facility] Last Admin: 09/13/18 08:32 Dose: 1 applic Pantoprazole Sodium (Protonix Susp) 40 mg NG DAILY [facility] Last Admin: 09/13/18 08:32 Dose: 40 mg Sucralfate (Carafate Oral Susp) 1 gm PO ACHS [facility] Last Admin: 08/18/18 22:07 Dose: 1 gm - Labs Labs: 09/12/18 04:30 09/12/18 04:30 PT 13.1 Seconds (9.8-13.1) 09/12/18 11:00 INR 1.2 09/12/18 11:00 APTT 22.2 Seconds (25.6-37.1) L 09/12/18 11:00
--- NOTE | 2018-09-13 11:33 | US ---
PROCEDURE: Date of procedure: 09/12/2018 Procedure: 1. Placement of a RIGHT AND LEFT chest tube with ultrasound guidance, CPT 50711 Medications: 8 cc 1 percent lidocaine HISTORY: Intubated, bilateral pleural effusion, difficulty extubating TECHNIQUE: Following informed consent and procedure time-out, ultrasound right and left chest showed moderate bilateral pleural effusions. The patient right chest was prepped and draped in the usual sterile fashion. After the skin was anesthetized with 1% lidocaine, a [place] catheter was advanced under ultrasound guidance into the pleural space. The catheter was exchanged over an 035 guidewire and tract was dilated to accommodate a 8 Sudanese pigtail catheter formed within the pleural space. The left chest was prepped and draped in the usual fashion. After the skin was anesthetized with 1% lidocaine, a Armin catheter was advanced under ultrasound guidance into the pleural space. The catheter was exchanged over an 035 guidewire and tract was dilated to accommodate a 8 Sudanese pigtail catheter formed within the pleural space. There is return of straw colored fluid. The catheters were secured to patient's skin. A xeroform dressing was applied. The right and left pleural drainage catheters were attached to a pleurovac. Postprocedure x-ray showed a right chest tube. IMPRESSION: Placement of an 8 Sudanese pigtail drainage catheter within the right and left pleural space for bilateral pleural effusion. There were no immediate complications.
--- NOTE | 2018-09-13 12:39 | OP ---
PROCEDURE DATE: 09/13/2018 LOCATION: ICU, bed 434. TIME SPENT: Thirty five minutes. The patient is seen and evaluated at the bedside. Past medical, surgical, family, social history reviewed. SUBJECTIVE: Clinical course since admission noted. Case was discussed in multidisciplinary ICU rounds this morning. Overnight remains intubated on mechanical ventilation, AC 12, tidal volume 400, FIO2 100%, no sedation. Status post bilateral thoracentesis and bilateral pleural pigtail catheter insertion. Remains lethargic, does not follow commands appropriate. PHYSICAL EXAMINATION: VITAL SIGNS: Temperature 97.9, heart rate 75 to 98 and regular, blood pressure 156/81, saturation 100%. Intake 2750, output 4480, negative balance 1730. Tube feeding 1000 mL, free water flush 1200 mL. Left posterior chest tube 1060, right posterior chest tube 995. Urine output 1925. HEAD, EYES, EARS, NOSE AND THROAT: Pupils equal, round, reactive to light and accommodation. Conjunctivae pink. Sclerae white. CHEST: Bilateral breath sounds, improved aeration, bilateral scattered rhonchi. HEART: Rhythm regular. S1, S2 normal. ABDOMEN: Bowel sounds present. Soft. Rectal tube in place with liquid brown stool. EXTREMITIES: 1+ edema. Soft restraints in place. No palpable cord on the lower extremities. NEUROLOGIC: Intubated on mechanical ventilation. No sedation. Moves all four extremities. SKIN: Without rash. CURRENT MEDICATIONS: Tylenol 650 every 6 hours p.r.n., albuterol/Atrovent inhalation 3 mL every 6 hours, aspirin 81 mg daily, cefepime 2 g IV every 12 hours, Proshield Plus skin protectant one application topically every 8 hours, Lovenox 40 mg subcu daily, furosemide 20 mg IV every 12 hours discontinued today, hydralazine 10 ml IV every 6 hours p.r.n., Levemir 20 units subcu daily, Humalog based on Accu-Check, Ativan 0.5 mg IV every 4 hours, Antivert 12.5 mg p.o. daily on hold, metformin 1000 mg p.o. b.i.d., Solu-Medrol 60 IV every 6 hours, Lopressor 20 mg p.o. every 6 hours, micafungin 100 mg IV daily, morphine 1 mg IV every 4 hours, nystatin one application topically three times daily, Protonix 40 mg daily, sucralfate 1 g p.o. at bedtime and vancomycin 750 mg IV daily. LABORATORY DATA: WBC 16.6, hemoglobin 9.9, hematocrit 31.1, platelet count of 215. PT 13.1, INR 1.2, PTT 22.2. ABG: pH 7.45, pCO2 of 43, pO2 of 49, on AC 14, 440, FIO2 increased to 100%. SMA-7 pending. Magnesium 2.5. ProBNP 22,800, potassium 3.01. Urinalysis: Rbc 7, wbc 15, bacteria rare, urine yeast many. Stool occult blood positive. Lyme antibody test negative. Urine legionella antigen negative. Microbiology: Blood culture no growth, drawn on 09/12/2018. Stool ova and parasite negative. Fungal culture, no fungus growth in 1 week. Mycobacterial culture A and B negative. Urine culture positive for yeast species. Sputum culture positive for yeast species. Chest x-ray done this morning, right pleural pigtail catheter in place, resolved pleural effusion, improved pulmonary edema, no pneumothorax, left pleural catheter in place, minimal effusion of left lung. IMPRESSION: 1. Neurologic: Status post subacute infarct as documented on CT scan of the head on 08/23/2018. CT head on 08/27/2018 reportedly normal, status post cardiopulmonary resuscitation. No significant improvement in mental status, suspect anoxic brain injury. Video-assisted electroencephalogram showed no acute abnormality including seizures, superimposed metabolic septic encephalopathy with worsening mental status. 2. Cardiac: Persistently elevated pro-BNP, normal ejection fraction, 60% to 65%. Status post cardiac arrest and respiratory failure. We will hold Lasix as the pleural effusion and pulmonary congestion improving and worsening renal function. 3. Pulmonary: Respiratory failure, vent dependent, failed multiple extubations, bilateral pleural effusion with consolidation, improved after the bilateral pleural catheter insertion. As the patient failed multiple extubations and not quite ready to wean off the ventilator, consider tracheostomy. Awaiting for cardiology evaluation. 4. Gastrointestinal: Cholelithiasis, but no cholecystitis. CT abdomen done recently shows no acute pathology. 5. Renal: Acute kidney injury, multifocal. Discontinue Lasix. 6. Infectious Disease: New-onset fever, history of urinary tract infection, new Jin in place. Septic workup in progress. 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 Continue antibiotic as recommended by infectious disease consult. 7. History of deep vein thrombosis. Continue Lovenox 70 mg subcutaneous daily, adjust for renal function 70 mg daily. 8. Endocrinology: Hyperglycemia, currently due to steroid. Continue insulin coverage. Maintain blood sugar less than 180. 9. Keep head of bed 30 degrees up, soft restraints for safety. Jin catheter for adequate intake output. Flexi-Seal to prevent soiling of the skin. Mandeep Dixon MD
[2018-09-13 14:40] LABS: ANCA SCREEN NEGATIVE (NEGATIVE)
--- NOTE | 2018-09-13 14:43 | CP.PCM.PN ---
Subjective - Date & Time of Evaluation Date of Evaluation: 09/13/18 Time of Evaluation: 11:10 - Subjective Subjective: F/U respiratory Failure. restless, had B/L pigtail Objective - Vital Signs/Intake and Output Vital Signs (last 24 hours): Temp Pulse Resp BP Pulse Ox 98.3 F 84 18 165/70 H 100 09/13/18 12:00 09/13/18 14:00 09/13/18 14:00 09/13/18 14:00 09/13/18 14:00 Intake and Output: 09/13/18 09/13/18 06:59 18:59 Intake Total 1150 1250 Output Total 1530 Balance -380 1250 - Medications Medications: Current Medications Acetaminophen (Tylenol 650mg/20.3ml Solution Ud) 650 mg NG Q6 PRN PRN Reason: Temperature Last Admin: 09/12/18 01:31 Dose: 650 mg Acetaminophen (Tylenol 650mg/20.3ml Solution Ud) 650 mg PO Q6 PRN PRN Reason: Pain, Mild (1-3) Last Admin: 09/02/18 05:54 Dose: 650 mg Albuterol/Ipratropium (Duoneb 3 Mg/0.5 Mg (3 Ml) Ud) 3 ml INH RQ6 [facility] Last Admin: 09/13/18 13:47 Dose: 3 ml Aspirin (Aspirin Chewable) 81 mg NG DAILY [facility] Last Admin: 09/12/18 08:18 Dose: 81 mg Dimethicone (Proshield Plus Skin Protectant) 1 applic TOP Q8 [facility] Last Admin: 09/13/18 08:32 Dose: 1 applic Enoxaparin Sodium (Lovenox) 40 mg SC DAILY [facility]; Protocol Last Admin: 09/13/18 08:31 Dose: 40 mg Hydralazine HCl (Apresoline) 10 mg IV Q6 PRN PRN Reason: Systolic Blood Pressure Last Admin: 09/12/18 04:36 Dose: 10 mg Cefepime HCl 2 gm/ Sodium (Chloride) 100 mls @ 100 mls/hr IVPB Q12 [facility]; Protocol Last Admin: 09/13/18 08:33 Dose: 100 mls/hr Micafungin Sodium 100 mg/ (Sodium Chloride) 100 mls @ 100 mls/hr IVPB DAILY [facility]; Protocol Last Admin: 09/13/18 09:58 Dose: 100 mls/hr Vancomycin HCl 750 mg/ Sodium (Chloride) 250 mls @ 166.667 mls/hr IVPB DAILY [facility]S [facility] 234 BEDS AT THE [facility]; Protocol Last Admin: 09/13/18 11:08 Dose: 166.667 mls/hr Insulin Detemir (Levemir) 20 units SC DAILY [facility]S [facility]CLUDE 234 BEDS AT THE [facility] Last Admin: 09/13/18 08:30 Dose: 20 units Insulin Human Lispro (Humalog) 0 units SC Q6 [facility]S [facility] 234 BEDS AT THE [facility]; Protocol Last Admin: 09/13/18 10:04 Dose: 10 unit Lorazepam (Ativan) 0.5 mg IVP Q4 [facility]S [facility]CLUDE 234 BEDS AT THE [facility] Last Admin: 09/13/18 13:55 Dose: 0.5 mg Metformin HCl (Glucophage) 1,000 mg PO BID [facility]S [facility]CLUDE 234 BEDS AT THE [facility] Last Admin: 08/16/18 09:34 Dose: Not Given Methylprednisolone (Solu-Medrol) 60 mg IV Q6H [facility]S [facility]CLUDE 234 BEDS AT THE [facility] Last Admin: 09/13/18 08:32 Dose: 60 mg Metoprolol Tartrate (Lopressor) 25 mg PO Q6 [facility]S [facility]CLUDE 234 BEDS AT THE [facility] Last Admin: 09/13/18 09:59 Dose: 25 mg Morphine Sulfate (Morphine) 1 mg IVP Q4 [facility]S [facility]CLUDE 234 BEDS AT THE [facility] Last Admin: 09/13/18 13:57 Dose: Not Given Nystatin (Nystop Topical Powder) 1 applic TOP TID [facility]S [facility]CLUDE 234 BEDS AT THE [facility] Last Admin: 09/13/18 13:57 Dose: 1 applic Pantoprazole Sodium (Protonix Susp) 40 mg NG DAILY [facility] 234 BEDS AT [facility] Last Admin: 09/13/18 08:32 Dose: 40 mg Sucralfate (Carafate Oral Susp) 1 gm PO ACHS [facility]S [facility]CLUDE 234 BEDS AT THE [facility] Last Admin: 08/18/18 22:07 Dose: 1 gm - Labs Labs: 09/12/18 04:30 09/12/18 04:30 PT 13.1 Seconds (9.8-13.1) 09/12/18 11:00 INR 1.2 09/12/18 11:00 APTT 22.2 Seconds (25.6-37.1) L 09/12/18 11:00 - Constitutional Appears: Chronically Ill - Head Exam Head Exam: NORMAL INSPECTION - Eye Exam Eye Exam: PERRL - ENT Exam Additional comments: Intubated, OGT - Neck Exam Neck Exam: Normal Inspection - Respiratory Exam Respiratory Exam: Decreased Breath Sounds (at bases), Rhonchi Additional comments: B/L chest pigtail. - Cardiovascular Exam Cardiovascular Exam: REGULAR RHYTHM - GI/Abdominal Exam GI & Abdominal Exam: Distended, Soft, Normal Bowel Sounds Additional comments: Large abdomen - Extremities Exam Additional comments: Edema - Neurological Exam Additional comments: Intubated, sedate.moving head side to side, not opening eyes to tactile stimuli. - Skin Skin Exam: Warm Assessment and Plan (1) Acute respiratory failure Status: Resolved (2) Cardiac arrest Status: Resolved (3) Aspiration pneumonia Status: Acute (4) Pleural effusion Status: Acute (5) Atelectasis of both lungs Status: Acute (6) NSTEMI (non-ST elevated myocardial infarction) Status: Acute (7) CHF (congestive heart failure) Status: Acute (8) DVT (deep venous thrombosis) Status: Acute (9) Severe anemia Status: Resolved - Assessment and Plan (Free Text) Plan: s/p B'L Pigtail , CXR improved CHF, PNA, effusions, continue ATb cooverage, FIO2 100%, attempt to decrease FIO2, evaluate for Trach Critical care time: 32 min.
[2018-09-13 15:17] LABS: BASO % 0.1 % (0.0-2.0); HEMOGLOBIN 8.1 g/dL (12.0-16.0); LYMPH # 0.1 K/uL (1.0-4.3); LYMPH % 1.1 % (20.0-40.0); MEAN CELL VOLUME 90.7 fl (81.0-99.0); MEAN CORPUSCULAR HEMOGLOBIN 28.6 pg (27.0-31.0); MEAN CORPUSCULAR HGB CONC 31.6 g/dL (33.0-37.0); MEAN PLATELET VOLUME 9.9 fl (7.2-11.7); MONO # 0.8 K/uL (0.0-0.8); NEUT # 11.7 K/uL (1.8-7.0); NEUT % 92.8 % (50.0-75.0); NRBC % 0.2 % (0.0-0.0); PLATELET COUNT 153 K/uL (130-400); RBC 2.84 Mil/uL (3.80-5.20); RED CELL DISTRIBUTION WIDTH 23.6 % (11.5-14.5); WHITE BLOOD COUNT 12.7 K/uL (4.8-10.8)
[2018-09-13 15:44] LABS: ALBUMIN 2.5 g/dL (3.5-5.0); CALCIUM 7.6 mg/dL (8.4-10.2)
[2018-09-13 16:34] LABS: BANDS 1 % (0-2); LYMPHOCYTE 1 % (20-50); MONOCYTE 3 % (0-10); NEUTROPHIL 95 % (42-75); PLATELET ESTIMATE NORMAL (NORMAL); TOTAL CELLS COUNTED 100
[2018-09-13 16:35] LABS: ANISOCYTOSIS MODERATE; HYPOCHROMIC SLIGHT; LARGE PLATELETS PRESENT; OVALOCYTES SLIGHT; POIKILOCYTOSIS SLIGHT; SCHISTOCYTES SLIGHT
[2018-09-13 20:58] LABS: CARDIOLIPIN AB (IGA) <11 APL (<=11); CARDIOLIPIN AB (IGG) <14 GPL (<=14); CARDIOLIPIN AB (IGM) <12 MPL (<=12)
[2018-09-13 22:01] LABS: B2 GLYCOPROTEIN I AB(IGA) 37 SAU (<=20); B2 GLYCOPROTEIN I AB(IGG) <9 SGU (<=20); B2 GLYCOPROTEIN I AB(IGM) <9 SMU (<=20); PHOSPHATIDYLSERINE AB IGA <20 U/mL (<20)
--- NOTE | 2018-09-13 22:19 | CP.PCM.PN ---
Subjective - Date & Time of Evaluation Date of Evaluation: 09/12/18 Time of Evaluation: 18:15 - Subjective Subjective: Seen and examined at the bed side. S/P B/L Pigtail posterior chest placement draining 850cc from both sides of the chest. Giovanni of fever 100.7. As per the RN, patient was in acute Resp. Distress and restless, and patient calmer after B/L Pigtail and removal of the fluid, and family agreeable for Tracheostomy. Objective - Vital Signs/Intake and Output Vital Signs (last 24 hours): Temp Pulse Resp BP Pulse Ox 97.5 F L 111 H 15 157/85 H 100 09/13/18 20:00 09/13/18 21:17 09/13/18 21:00 09/13/18 21:17 09/13/18 21:00 Intake and Output: 09/13/18 09/14/18 18:59 06:59 Intake Total 1650 300 Output Total 1300 Balance 350 300 - Medications Medications: Current Medications Acetaminophen (Tylenol 650mg/20.3ml Solution Ud) 650 mg NG Q6 PRN PRN Reason: Temperature Last Admin: 09/12/18 01:31 Dose: 650 mg Acetaminophen (Tylenol 650mg/20.3ml Solution Ud) 650 mg PO Q6 PRN PRN Reason: Pain, Mild (1-3) Last Admin: 09/02/18 05:54 Dose: 650 mg Albuterol/Ipratropium (Duoneb 3 Mg/0.5 Mg (3 Ml) Ud) 3 ml INH RQ6 [facility] Last Admin: 09/13/18 20:01 Dose: Not Given Aspirin (Aspirin Chewable) 81 mg NG DAILY [facility] Last Admin: 09/12/18 08:18 Dose: 81 mg Dimethicone (Proshield Plus Skin Protectant) 1 applic TOP Q8 [facility] Last Admin: 09/13/18 16:23 Dose: 1 applic Enoxaparin Sodium (Lovenox) 40 mg SC DAILY [facility]; Protocol Last Admin: 09/13/18 08:31 Dose: 40 mg Hydralazine HCl (Apresoline) 10 mg IV Q6 PRN PRN Reason: Systolic Blood Pressure Last Admin: 09/12/18 04:36 Dose: 10 mg Cefepime HCl 2 gm/ Sodium (Chloride) 100 mls @ 100 mls/hr IVPB Q12 [facility]; Protocol Last Admin: 09/13/18 20:12 Dose: 100 mls/hr Micafungin Sodium 100 mg/ (Sodium Chloride) 100 mls @ 100 mls/hr IVPB DAILY [facility]; Protocol Last Admin: 09/13/18 09:58 Dose: 100 mls/hr Vancomycin HCl 750 mg/ Sodium (Chloride) 250 mls @ 166.667 mls/hr IVPB DAILY [facility]; Protocol Last Admin: 09/13/18 11:08 Dose: 166.667 mls/hr Insulin Detemir (Levemir) 20 units SC DAILY [facility] Last Admin: 09/13/18 08:30 Dose: 20 units Insulin Human Lispro (Humalog) 0 units SC Q6 [facility]; Protocol Last Admin: 09/13/18 21:12 Dose: 2 unit Lorazepam (Ativan) 0.5 mg IVP Q4 [facility] Last Admin: 09/13/18 20:08 Dose: 0.5 mg Metformin HCl (Glucophage) 1,000 mg PO BID [facility] Last Admin: 08/16/18 09:34 Dose: Not Given Methylprednisolone (Solu-Medrol) 60 mg IV Q6H [facility] Last Admin: 09/13/18 21:18 Dose: 60 mg Metoprolol Tartrate (Lopressor) 25 mg PO Q6 [facility] Last Admin: 09/13/18 21:17 Dose: 25 mg Morphine Sulfate (Morphine) 1 mg IVP Q4 [facility] Last Admin: 09/13/18 21:08 Dose: 1 mg Nystatin (Nystop Topical Powder) 1 applic TOP TID [facility] Last Admin: 09/13/18 16:23 Dose: 1 applic Pantoprazole Sodium (Protonix Susp) 40 mg NG DAILY [facility] Last Admin: 09/13/18 08:32 Dose: 40 mg Sucralfate (Carafate Oral Susp) 1 gm PO ACHS [facility] Last Admin: 08/18/18 22:07 Dose: 1 gm - Labs Labs: 09/13/18 14:30 09/13/18 14:30 PT 13.1 Seconds (9.8-13.1) 09/12/18 11:00 INR 1.2 09/12/18 11:00 APTT 22.2 Seconds (25.6-37.1) L 09/12/18 11:00 - Head Exam Head Exam: ATRAUMATIC, NORMAL INSPECTION, NORMOCEPHALIC - Respiratory Exam Additional comments: Sedated and Intubated - Cardiovascular Exam Cardiovascular Exam: +S1, +S2 Assessment and Plan (1) Acute respiratory failure Status: Resolved (2) Hypertensive urgency Status: Resolved (3) DVT (deep venous thrombosis) Status: Acute (4) Cardiac arrest Status: Acute (5) AURORA (acute kidney injury) Status: Acute (6) NSTEMI (non-ST elevated myocardial infarction) Status: Resolved (7) Type 2 diabetes mellitus with hyperglycemia Status: Chronic (8) Acute gastroenteritis Status: Resolved (9) Abdominal pain in female Status: Resolved (10) Gallbladder disease Status: Acute (11) Severe anemia Status: Resolved (12) Aspiration pneumonia Status: Acute - Assessment and Plan (Free Text) Plan: Continue MV Continue care as per Intensivst recommendation.
--- NOTE | 2018-09-13 22:20 | CP.PCM.PN ---
Subjective - Date & Time of Evaluation Date of Evaluation: 09/13/18 Time of Evaluation: 07:05 - Subjective Subjective: Seen and examined at the bed side. Remains intubated and sedated. Last fever on 09/12 at 0800 of 100.8F. Contact precautions for VRE in blood. Labs and vitals noted. Na elevated, WBC trending up, lactic acid trending up. Surgery evaluated the patient for Tracheostomy, and pending Hearing Care Practitioner Clearance. Objective - Vital Signs/Intake and Output Vital Signs (last 24 hours): Temp Pulse Resp BP Pulse Ox 97.5 F L 111 H 15 157/85 H 100 09/13/18 20:00 09/13/18 21:17 09/13/18 21:00 09/13/18 21:17 09/13/18 21:00 Intake and Output: 09/13/18 09/14/18 18:59 06:59 Intake Total 1650 300 Output Total 1300 Balance 350 300 - Medications Medications: Current Medications Acetaminophen (Tylenol 650mg/20.3ml Solution Ud) 650 mg NG Q6 PRN PRN Reason: Temperature Last Admin: 09/12/18 01:31 Dose: 650 mg Acetaminophen (Tylenol 650mg/20.3ml Solution Ud) 650 mg PO Q6 PRN PRN Reason: Pain, Mild (1-3) Last Admin: 09/02/18 05:54 Dose: 650 mg Albuterol/Ipratropium (Duoneb 3 Mg/0.5 Mg (3 Ml) Ud) 3 ml INH RQ6 [facility] Last Admin: 09/13/18 20:01 Dose: Not Given Aspirin (Aspirin Chewable) 81 mg NG DAILY [facility] Last Admin: 09/12/18 08:18 Dose: 81 mg Dimethicone (Proshield Plus Skin Protectant) 1 applic TOP Q8 [facility] Last Admin: 09/13/18 16:23 Dose: 1 applic Enoxaparin Sodium (Lovenox) 40 mg SC DAILY [facility]; Protocol Last Admin: 09/13/18 08:31 Dose: 40 mg Hydralazine HCl (Apresoline) 10 mg IV Q6 PRN PRN Reason: Systolic Blood Pressure Last Admin: 09/12/18 04:36 Dose: 10 mg Cefepime HCl 2 gm/ Sodium (Chloride) 100 mls @ 100 mls/hr IVPB Q12 [facility]; Protocol Last Admin: 09/13/18 20:12 Dose: 100 mls/hr Micafungin Sodium 100 mg/ (Sodium Chloride) 100 mls @ 100 mls/hr IVPB DAILY [facility]; Protocol Last Admin: 09/13/18 09:58 Dose: 100 mls/hr Vancomycin HCl 750 mg/ Sodium (Chloride) 250 mls @ 166.667 mls/hr IVPB DAILY [facility]; Protocol Last Admin: 09/13/18 11:08 Dose: 166.667 mls/hr Insulin Detemir (Levemir) 20 units SC DAILY [facility] Last Admin: 09/13/18 08:30 Dose: 20 units Insulin Human Lispro (Humalog) 0 units SC Q6 [facility]; Protocol Last Admin: 09/13/18 21:12 Dose: 2 unit Lorazepam (Ativan) 0.5 mg IVP Q4 [facility] Last Admin: 09/13/18 20:08 Dose: 0.5 mg Metformin HCl (Glucophage) 1,000 mg PO BID [facility] Last Admin: 08/16/18 09:34 Dose: Not Given Methylprednisolone (Solu-Medrol) 60 mg IV Q6H [facility] Last Admin: 09/13/18 21:18 Dose: 60 mg Metoprolol Tartrate (Lopressor) 25 mg PO Q6 [facility] Last Admin: 09/13/18 21:17 Dose: 25 mg Morphine Sulfate (Morphine) 1 mg IVP Q4 [facility] Last Admin: 09/13/18 21:08 Dose: 1 mg Nystatin (Nystop Topical Powder) 1 applic TOP TID [facility] Last Admin: 09/13/18 16:23 Dose: 1 applic Pantoprazole Sodium (Protonix Susp) 40 mg NG DAILY [facility] Last Admin: 09/13/18 08:32 Dose: 40 mg Sucralfate (Carafate Oral Susp) 1 gm PO ACHS [facility] Last Admin: 08/18/18 22:07 Dose: 1 gm - Labs Labs: 09/13/18 14:30 09/13/18 14:30 PT 13.1 Seconds (9.8-13.1) 09/12/18 11:00 INR 1.2 09/12/18 11:00 APTT 22.2 Seconds (25.6-37.1) L 09/12/18 11:00 - Respiratory Exam Additional comments: Intubated and sedated. B/L Posterior Pigtail. - Cardiovascular Exam Cardiovascular Exam: +S2, +S4 Assessment and Plan (1) Acute respiratory failure Status: Resolved (2) Hypertensive urgency Status: Resolved (3) DVT (deep venous thrombosis) Status: Acute (4) Cardiac arrest Status: Acute (5) AURORA (acute kidney injury) Status: Acute (6) NSTEMI (non-ST elevated myocardial infarction) Status: Resolved (7) Type 2 diabetes mellitus with hyperglycemia Status: Chronic (8) Acute gastroenteritis Status: Resolved (9) Abdominal pain in female Status: Resolved (10) Gallbladder disease Status: Acute (11) Severe anemia Status: Resolved (12) Aspiration pneumonia Status: Acute - Assessment and Plan (Free Text) Plan: Continue Pigtail Continue Current Care Scheduled For Tracheostomy
[2018-09-14] MEDS: Proshield Plus GEL TOP SCH ×3 (00:26→17:00)
[2018-09-14] MEDS: Albuterol-Ipratrop 3 mg / 0.5 (3 ml) UD INH SCH ×4 (01:04→19:01)
[2018-09-14] MEDS: Insulin Lispro (humaLOG) 100 Units/ml Inj SC SCH ×4 (03:41→21:33)
[2018-09-14 05:40] LABS: HEMOGLOBIN 10.2 g/dL (12.0-16.0); MEAN CELL VOLUME 88.9 fl (81.0-99.0); MEAN CORPUSCULAR HEMOGLOBIN 28.6 pg (27.0-31.0); MEAN CORPUSCULAR HGB CONC 32.1 g/dL (33.0-37.0); RBC 3.59 Mil/uL (3.80-5.20); RED CELL DISTRIBUTION WIDTH 23.6 % (11.5-14.5); WHITE BLOOD COUNT 22.6 K/uL (4.8-10.8)
[2018-09-14 05:45] LABS: CALCIUM 8.2 mg/dL (8.4-10.2)
[2018-09-14 06:06] LABS: ABG ALLEN TEST YES; ARTERIAL BLOOD GAS HCO3 28.8 mmol/L (21-28); ARTERIAL BLOOD GAS HEMOGLOBIN 10.7 g/dL (11.7-17.4); ARTERIAL BLOOD GAS O2 CAPACITY 14.5 mL/dL (16-24); ARTERIAL BLOOD GAS O2 CONTENT 12.7 ML/dL (15-23); ARTERIAL BLOOD GAS O2 SAT 87.6 % (95-98); ARTERIAL BLOOD GAS PCO2 43 mm/Hg (35-45); ARTERIAL BLOOD GAS PH 7.45 (7.35-7.45); ARTERIAL BLOOD GAS PO2 48 mm/Hg (80-100); ARTERIAL BLOOD GAS TCO2 31.2 mmol/L (22-28)
[2018-09-14] MEDS: Insulin Detemir 100 Units/ml Inj SC SCH (08:24)
[2018-09-14] MEDS: Enoxaparin 40 mg Syringe SC SCH (08:25)
[2018-09-14] MEDS: Cefepime 2 GM in Sodium Chloride 0.9% 100 ML IVPB SCH (08:26)
[2018-09-14] MEDS: Micafungin 100 MG in Sodium Chloride 0.9% 100 ML IVPB SCH (08:29)
[2018-09-14] MEDS: Pantoprazole 40 mg Susp UD NG SCH (08:31)
--- NOTE | 2018-09-14 09:43 | RAD ---
Date of service: 09/14/2018 HISTORY: ,intubated COMPARISON: 09/13/2018 FINDINGS: LUNGS: The left mid lung zone airspace opacity is similar to perhaps minimally increased in density. The right perihilar coalescent airspace opacity appears more extensive and denser in the mid to upper lung zone. Endotracheal tube tip approximately 2.7 cm cephalad to kevon. PLEURA: No interval or progressive pleural effusions suggested. The current left costophrenic angle appears axis sharper than before. The bilateral pleural pigtail catheters are similar in position over each inferior hemithorax. CARDIOVASCULAR: There is presence of aortic atherosclerotic calcification on x-ray. Minimal cardiomegaly-similar. Concomitant pulmonary venous congestion/interstitial pulmonary edema an airspace pulmonary edema coalescence suspect as above. Additional concomitant airspace infiltrates also compatible with this appearance OSSEOUS STRUCTURES: Mild right shoulder arthrosis. VISUALIZED UPPER ABDOMEN: Distal NG tube seen coursing over the stomach-tip beyond inferior edge of this image. OTHER FINDINGS: None. IMPRESSION: Increasing bilateral airspace opacities-compatible with worsening pulmonary edema and/or worsening infiltrates. Other findings as above.
--- NOTE | 2018-09-14 10:38 | CP.PCM.PN ---
Subjective - Date & Time of Evaluation Date of Evaluation: 09/14/18 Time of Evaluation: 10:31 - Subjective Subjective: General Surgery Progress Note for Dr. Maciel 73F seen and evaluated at bedside this morning. Patient intubated and mechanically ventilated PEEP 5, FiO2 100% at this time. Does not open eyes, does respond to pain stimuli. Patient agitated w/ restraints in place. Unable to obtain ROS secondary to mental status. Objective - Vital Signs/Intake and Output Vital Signs (last 24 hours): Temp Pulse Resp BP Pulse Ox 97.7 F 102 H 30 H 170/64 H 93 L 09/14/18 07:55 09/14/18 09:23 09/14/18 07:55 09/14/18 09:23 09/14/18 07:55 Intake and Output: 09/14/18 09/14/18 06:59 18:59 Intake Total 1250 650 Output Total 1330 Balance -80 650 - Medications Medications: Current Medications Acetaminophen (Tylenol 650mg/20.3ml Solution Ud) 650 mg NG Q6 PRN PRN Reason: Temperature Last Admin: 09/12/18 01:31 Dose: 650 mg Acetaminophen (Tylenol 650mg/20.3ml Solution Ud) 650 mg PO Q6 PRN PRN Reason: Pain, Mild (1-3) Last Admin: 09/02/18 05:54 Dose: 650 mg Albuterol/Ipratropium (Duoneb 3 Mg/0.5 Mg (3 Ml) Ud) 3 ml INH RQ6 [facility] Last Admin: 09/14/18 07:58 Dose: 3 ml Aspirin (Aspirin Chewable) 81 mg NG DAILY [facility] Last Admin: 09/12/18 08:18 Dose: 81 mg Dimethicone (Proshield Plus Skin Protectant) 1 applic TOP Q8 [facility] Last Admin: 09/14/18 08:30 Dose: 1 applic Enoxaparin Sodium (Lovenox) 40 mg SC DAILY [facility]; Protocol Last Admin: 09/14/18 08:25 Dose: 40 mg Hydralazine HCl (Apresoline) 10 mg IV Q6 PRN PRN Reason: Systolic Blood Pressure Last Admin: 09/12/18 04:36 Dose: 10 mg Cefepime HCl 2 gm/ Sodium (Chloride) 100 mls @ 100 mls/hr IVPB Q12 [facility]; Protocol Last Admin: 09/14/18 08:26 Dose: 100 mls/hr Micafungin Sodium 100 mg/ (Sodium Chloride) 100 mls @ 100 mls/hr IVPB DAILY [facility]; Protocol Last Admin: 09/14/18 08:29 Dose: 100 mls/hr Vancomycin HCl 750 mg/ Sodium (Chloride) 250 mls @ 166.667 mls/hr IVPB DAILY [facility]; Protocol Last Admin: 09/14/18 08:32 Dose: 166.667 mls/hr Insulin Detemir (Levemir) 20 units SC DAILY [facility] Last Admin: 09/14/18 08:24 Dose: 20 units Insulin Human Lispro (Humalog) 0 units SC Q6 [facility]; Protocol Last Admin: 09/14/18 03:41 Dose: 8 unit Lorazepam (Ativan) 0.5 mg IVP Q4 [facility] Last Admin: 09/14/18 08:24 Dose: 0.5 mg Metformin HCl (Glucophage) 1,000 mg PO BID [facility] Last Admin: 08/16/18 09:34 Dose: Not Given Methylprednisolone (Solu-Medrol) 60 mg IV Q6H [facility] Last Admin: 09/14/18 08:31 Dose: 60 mg Metoprolol Tartrate (Lopressor) 25 mg PO Q6 [facility] Last Admin: 09/14/18 09:23 Dose: 25 mg Morphine Sulfate (Morphine) 1 mg IVP Q4 [facility] Last Admin: 09/14/18 08:28 Dose: 1 mg Nystatin (Nystop Topical Powder) 1 applic TOP TID [facility] Last Admin: 09/14/18 08:30 Dose: 1 applic Pantoprazole Sodium (Protonix Susp) 40 mg NG DAILY [facility] Last Admin: 09/14/18 08:31 Dose: 40 mg Sucralfate (Carafate Oral Susp) 1 gm PO ACHS [facility] Last Admin: 08/18/18 22:07 Dose: 1 gm - Labs Labs: 09/14/18 04:40 09/14/18 04:40 PT 13.1 Seconds (9.8-13.1) 09/12/18 11:00 INR 1.2 09/12/18 11:00 APTT 22.2 Seconds (25.6-37.1) L 09/12/18 11:00 - Constitutional Appears: Agitated, Chronically Ill - Head Exam Head Exam: ATRAUMATIC, NORMAL INSPECTION, NORMOCEPHALIC - Eye Exam Eye Exam: absent: EOMI - Neck Exam Neck Exam: Normal Inspection. absent: Thyromegaly - Respiratory Exam Additional comments: intubated and mechanically ventilated - Neurological Exam Neurological Exam: absent: Alert, Awake, Oriented x3 Assessment and Plan - Assessment and Plan (Free Text) Assessment: 73F w/ respiratory failure consulted for Tracheostomy Plan: Pending cardiac clearance Patient's Leukocytosis worsening, elevated lactic acid - continue to monitor Spoke with patient's daughter yesterday, who states she will speak with brother in [place] before making final decision Medically optimize patient prior to any surgical intervention Further recommendations per Dr. Raheem Alvarado PGY1
--- NOTE | 2018-09-14 10:57 | CP.PCM.PN ---
Subjective - Date & Time of Evaluation Date of Evaluation: 09/14/18 Time of Evaluation: 10:57 - Subjective Subjective: Patient remains on respirator Vital signs noted to be stable Patient appeared to be restless Objective - Vital Signs/Intake and Output Vital Signs (last 24 hours): Temp Pulse Resp BP Pulse Ox 97.7 F 91 H 31 H 116/67 95 09/14/18 07:55 09/14/18 10:00 09/14/18 10:00 09/14/18 10:00 09/14/18 10:00 Intake and Output: 09/14/18 09/14/18 06:59 18:59 Intake Total 1250 650 Output Total 1330 Balance -80 650 - Medications Medications: Current Medications Acetaminophen (Tylenol 650mg/20.3ml Solution Ud) 650 mg NG Q6 PRN PRN Reason: Temperature Last Admin: 09/12/18 01:31 Dose: 650 mg Acetaminophen (Tylenol 650mg/20.3ml Solution Ud) 650 mg PO Q6 PRN PRN Reason: Pain, Mild (1-3) Last Admin: 09/02/18 05:54 Dose: 650 mg Albuterol/Ipratropium (Duoneb 3 Mg/0.5 Mg (3 Ml) Ud) 3 ml INH RQ6 [facility] Last Admin: 09/14/18 07:58 Dose: 3 ml Aspirin (Aspirin Chewable) 81 mg NG DAILY [facility] Last Admin: 09/12/18 08:18 Dose: 81 mg Dimethicone (Proshield Plus Skin Protectant) 1 applic TOP Q8 [facility] Last Admin: 09/14/18 08:30 Dose: 1 applic Enoxaparin Sodium (Lovenox) 40 mg SC DAILY [facility]; Protocol Last Admin: 09/14/18 08:25 Dose: 40 mg Hydralazine HCl (Apresoline) 10 mg IV Q6 PRN PRN Reason: Systolic Blood Pressure Last Admin: 09/12/18 04:36 Dose: 10 mg Cefepime HCl 2 gm/ Sodium (Chloride) 100 mls @ 100 mls/hr IVPB Q12 [facility]; Protocol Last Admin: 09/14/18 08:26 Dose: 100 mls/hr Micafungin Sodium 100 mg/ (Sodium Chloride) 100 mls @ 100 mls/hr IVPB DAILY [facility] ; Protocol Last Admin: 09/14/18 08:29 Dose: 100 mls/hr Vancomycin HCl 750 mg/ Sodium (Chloride) 250 mls @ 166.667 mls/hr IVPB DAILY [facility]; Protocol Last Admin: 09/14/18 08:32 Dose: 166.667 mls/hr Insulin Detemir (Levemir) 20 units SC DAILY [facility] Last Admin: 09/14/18 08:24 Dose: 20 units Insulin Human Lispro (Humalog) 0 units SC Q6 [facility]; Protocol Last Admin: 09/14/18 10:46 Dose: 6 unit Lorazepam (Ativan) 0.5 mg IVP Q4 [facility] Last Admin: 09/14/18 08:24 Dose: 0.5 mg Metformin HCl (Glucophage) 1,000 mg PO BID [facility] Last Admin: 08/16/18 09:34 Dose: Not Given Methylprednisolone (Solu-Medrol) 60 mg IV Q6H [facility] Last Admin: 09/14/18 08:31 Dose: 60 mg Metoprolol Tartrate (Lopressor) 25 mg PO Q6 [facility] Last Admin: 09/14/18 09:23 Dose: 25 mg Morphine Sulfate (Morphine) 1 mg IVP Q4 [facility] Last Admin: 09/14/18 08:28 Dose: 1 mg Nystatin (Nystop Topical Powder) 1 applic TOP TID [facility] Last Admin: 09/14/18 08:30 Dose: 1 applic Pantoprazole Sodium (Protonix Susp) 40 mg NG DAILY [facility] Last Admin: 09/14/18 08:31 Dose: 40 mg Sucralfate (Carafate Oral Susp) 1 gm PO ACHS [facility] Last Admin: 08/18/18 22:07 Dose: 1 gm - Labs Labs: 09/14/18 04:40 09/14/18 04:40 PT 13.1 Seconds (9.8-13.1) 09/12/18 11:00 INR 1.2 09/12/18 11:00 APTT 22.2 Seconds (25.6-37.1) L 09/12/18 11:00 - Constitutional Appears: No Acute Distress - Eye Exam Eye Exam: Conjunctival injection - ENT Exam ENT Exam: Mucous Membranes Moist - Neck Exam Neck Exam: absent: Lymphadenopathy - Respiratory Exam Respiratory Exam: Rhonchi - Cardiovascular Exam Cardiovascular Exam: absent: Gallop, JVD, Rubs - GI/Abdominal Exam GI & Abdominal Exam: Normal Bowel Sounds - Extremities Exam Extremities Exam: absent: Calf Tenderness - Back Exam Back Exam: absent: CVA tenderness (L), CVA tenderness (R) - Neurological Exam Neurological Exam: Altered - Psychiatric Exam Psychiatric exam: Flat Affect - Skin Skin Exam: absent: Cyanosis Assessment and Plan (1) AURORA (acute kidney injury) Assessment & Plan: acute kidney injury related to multifactorial including sepsis serum creatinine around 1.1 Respiratory failure patient remain on respirator Sepsis DC hypernatremia,151 Hyperchloremia 114 hypokalemia 3.4 Bilateral pleural effusion plan respiratory management Avoid hypotension Antibiotics as per renal doses adjustment Status bilateral thoracocentesis on September 06, removal 800 cc from each side Status post bilateral pleural insertion of catheter for drainage 09/12 Worsening hypernatremia we will increase water through the NG tube 250 cc every 4 hours Status: Acute (2) Acute gastroenteritis Status: Resolved (3) Anginal equivalent Status: Acute
--- NOTE | 2018-09-14 12:01 | CP.CCUPN ---
CCU Subjective - Physician Review Subjective (Free Text): On Ativan / Morphine sedation, but not following commands nor opening eyes to verbal or tactile stimulus, Breathing 24 on AC 14, TV 400, and FiO2 increased to 100% with PEEP 5. After alveolar recruitment maneuver, FiO2 able to be decreased to 65% with PEEP 8 and SPo2 at 99%. Other vitals and I/O's reviewed, no recurrent fever spikes since last episode on 09/12 at midnight with 102.5F Temp. BP 110s to 170s, HR 102. Urine output approx. 1900 ml [id number] with overall almost even fluid balance. ROS: No other pertinent negs or positives on 10+ system review unobtainable on MV. PMSFH: DM II, HTN, Gastritis. All other Nursing and physician documentation re viewed to date; no new pertinent info noted relevant to current medical problems. EXAM- HEENT: no icterus, no gaze preference, Pupils 3 mm and reactive NECK: No JVD visible, supple, carotids equal upstroke bilat/no bruit CHEST: decreased BS at the bases, no wheezes audible HEART: regular, distant, S1S2, no rubs ABD: soft and nontender, no tympany, no guarding, no organomegaly, BS hypoactive EXT: trace LE edema, no calf tenderness or palpable cords, distal pulses intact and symmetrical. NEURO: no focal motor weakness SKIN: no rashes, warm and dry LABS: WBC= 22.6 HGB= 10.2 PLTs= 196K Na= 151 K= 3.4 BE=549 HCO3= 27 BUN/Cr= 76/1.1 BS= 302 Lacate= 3.2 CXR: - ETT OK above kevon, new coalescent infiltrates RUL and L mid-lung field, bilateral pigtail catheters in place, no PTX seen. ( my interp) IMPRESSION / MAJOR PROBLEMS NOW: 1. Acute Hypoxemic Resp Failure 2 non-resolving Pneumonia / Pneumonitis- unresponsive to multiple antibiotic regimens and steroids. 2. Acute / Subacute NSTEMI 3. Coag neg Staph Bacteremia and VRE Bacteremia 4. Azotemia / Dehydration, with Hypernatremia (recurrent free water deficit, has been on Diuretics) r/o [place] ATN 5. Uncontrolled DM II PLAN: 1. FiO2 reduce to 5% for now. Still not stable for safe Trach procedure. 2. Pulm f/u, consider FOB/BAL. ?? possible fungal pneumonia, remains on Maxipime, Vanco and Micafungin ( for Candidal species coverage, had yeast in sputum on 08/23 and 09/01). Will discuss with ID and Pulm regarding other atypical opportunistic fungal infection since there has been no improvement from antibiotics, echinocandin coverage and steroids. 3. Additional free water. Needs improved glycemic control. 4. Repeat ECHO to look for vegetative valvular disease. 5. Vasculitis w/u negative so far. 6. Lactate still elevated, 2 hypoxemia, no adverse hemodynamic parameters noted. 7. Overall prognosis not any better.
[2018-09-14] MEDS ORDERED: Potassium Chloride 20 mEq/15 ml LIQ UD PO ONE (12:30)
--- NOTE | 2018-09-14 13:12 | CP.PCM.PN ---
Subjective - Date & Time of Evaluation Date of Evaluation: 09/14/18 Time of Evaluation: 10:00 - Subjective Subjective: events noted no new cultures wbc increasing zyvox and Merrem added to mycamine consider surgical re-eval Objective - Vital Signs/Intake and Output Vital Signs (last 24 hours): Temp Pulse Resp BP Pulse Ox 98.6 F 106 H 32 H 178/76 H 98 09/14/18 12:00 09/14/18 12:00 09/14/18 12:00 09/14/18 12:00 09/14/18 12:00 Intake and Output: 09/14/18 09/14/18 06:59 18:59 Intake Total 1250 900 Output Total 1330 Balance -80 900 - Medications Medications: Current Medications Acetaminophen (Tylenol 650mg/20.3ml Solution Ud) 650 mg NG Q6 PRN PRN Reason: Temperature Last Admin: 09/12/18 01:31 Dose: 650 mg Acetaminophen (Tylenol 650mg/20.3ml Solution Ud) 650 mg PO Q6 PRN PRN Reason: Pain, Mild (1-3) Last Admin: 09/02/18 05:54 Dose: 650 mg Albuterol/Ipratropium (Duoneb 3 Mg/0.5 Mg (3 Ml) Ud) 3 ml INH RQ6 [facility] Last Admin: 09/14/18 07:58 Dose: 3 ml Aspirin (Aspirin Chewable) 81 mg NG DAILY [facility] Last Admin: 09/12/18 08:18 Dose: 81 mg Dimethicone (Proshield Plus Skin Protectant) 1 applic TOP Q8 [facility] Last Admin: 09/14/18 08:30 Dose: 1 applic Enoxaparin Sodium (Lovenox) 40 mg SC DAILY [facility]; Protocol Last Admin: 09/14/18 08:25 Dose: 40 mg Hydralazine HCl (Apresoline) 10 mg IV Q6 PRN PRN Reason: Systolic Blood Pressure Last Admin: 09/12/18 04:36 Dose: 10 mg Cefepime HCl 2 gm/ Sodium (Chloride) 100 mls @ 100 mls/hr IVPB Q12 [facility]; Protocol Last Admin: 09/14/18 08:26 Dose: 100 mls/hr Micafungin Sodium 100 mg/ (Sodium Chloride) 100 mls @ 100 mls/hr IVPB DAILY [facility]; Protocol Last Admin: 09/14/18 08:29 Dose: 100 mls/hr Insulin Detemir (Levemir) 20 units SC DAILY [facility] Last Admin: 09/14/18 08:24 Dose: 20 units Insulin Human Lispro (Humalog) 0 units SC Q6 [facility]; Protocol Last Admin: 09/14/18 10:46 Dose: 6 unit Lorazepam (Ativan) 0.5 mg IVP Q4 [facility] Last Admin: 09/14/18 12:18 Dose: 0.5 mg Metformin HCl (Glucophage) 1,000 mg PO BID [facility] Last Admin: 08/16/18 09:34 Dose: Not Given Methylprednisolone (Solu-Medrol) 60 mg IV Q6H [facility] Last Admin: 09/14/18 08:31 Dose: 60 mg Metoprolol Tartrate (Lopressor) 25 mg PO Q6 [facility] Last Admin: 09/14/18 09:23 Dose: 25 mg Morphine Sulfate (Morphine) 1 mg IVP Q4 [facility] Last Admin: 09/14/18 12:18 Dose: 1 mg Nystatin (Nystop Topical Powder) 1 applic TOP TID [facility] Last Admin: 09/14/18 12:19 Dose: 1 applic Pantoprazole Sodium (Protonix Susp) 40 mg NG DAILY [facility] Last Admin: 09/14/18 08:31 Dose: 40 mg Sucralfate (Carafate Oral Susp) 1 gm PO ACHS [facility] Last Admin: 08/18/18 22:07 Dose: 1 gm - Labs Labs: 09/14/18 04:40 09/14/18 04:40 PT 13.1 Seconds (9.8-13.1) 09/12/18 11:00 INR 1.2 09/12/18 11:00 APTT 22.2 Seconds (25.6-37.1) L 09/12/18 11:00 - Constitutional Appears: No Acute Distress, Confused, Cachectic, Chronically Ill - Head Exam Head Exam: NORMOCEPHALIC - Eye Exam Eye Exam: absent: Scleral icterus - ENT Exam ENT Exam: Mucous Membranes Dry - Neck Exam Neck Exam: absent: Lymphadenopathy - Respiratory Exam Respiratory Exam: Decreased Breath Sounds - Cardiovascular Exam Cardiovascular Exam: REGULAR RHYTHM - GI/Abdominal Exam GI & Abdominal Exam: Distended - Rectal Exam Rectal Exam: Deferred - Exam Exam: NORMAL INSPECTION - Extremities Exam Extremities Exam: absent: Pedal Edema Assessment and Plan (1) Dehydration Status: Acute (2) NSTEMI (non-ST elevated myocardial infarction) Status: Resolved (3) Nausea & vomiting Status: Resolved (4) Type 2 diabetes mellitus with hyperglycemia Status: Chronic (5) Abdominal pain Status: Acute (6) Gallbladder disease Status: Acute (7) Pneumonia Status: Acute - Assessment and Plan (Free Text) Assessment: add zyvox merrem mycamine reculture for FOB consider surgical re--eval may need trach soon
[2018-09-14] MEDS ORDERED: Micafungin 100 MG in Sodium Chloride 0.9% 100 ML IV SCH (13:15)
--- NOTE | 2018-09-14 14:15 | CP.PCM.PN ---
Subjective - Date & Time of Evaluation Date of Evaluation: 09/14/18 Time of Evaluation: 12:30 - Subjective Subjective: .F/U Respiratory Failure. restless Objective - Vital Signs/Intake and Output Vital Signs (last 24 hours): Temp Pulse Resp BP Pulse Ox 98.6 F 106 H 32 H 178/76 H 98 09/14/18 12:00 09/14/18 12:00 09/14/18 12:00 09/14/18 12:00 09/14/18 12:00 Intake and Output: 09/14/18 09/14/18 06:59 18:59 Intake Total 1250 900 Output Total 1330 Balance -80 900 - Medications Medications: Current Medications Acetaminophen (Tylenol 650mg/20.3ml Solution Ud) 650 mg NG Q6 PRN PRN Reason: Temperature Last Admin: 09/12/18 01:31 Dose: 650 mg Acetaminophen (Tylenol 650mg/20.3ml Solution Ud) 650 mg PO Q6 PRN PRN Reason: Pain, Mild (1-3) Last Admin: 09/02/18 05:54 Dose: 650 mg Albuterol/Ipratropium (Duoneb 3 Mg/0.5 Mg (3 Ml) Ud) 3 ml INH RQ6 [facility] Last Admin: 09/14/18 13:18 Dose: 3 ml Aspirin (Aspirin Chewable) 81 mg NG DAILY [facility] Last Admin: 09/12/18 08:18 Dose: 81 mg Dimethicone (Proshield Plus Skin Protectant) 1 applic TOP Q8 [facility] Last Admin: 09/14/18 08:30 Dose: 1 applic Enoxaparin Sodium (Lovenox) 40 mg SC DAILY [facility]; Protocol Last Admin: 09/14/18 08:25 Dose: 40 mg Hydralazine HCl (Apresoline) 10 mg IV Q6 PRN PRN Reason: Systolic Blood Pressure Last Admin: 09/12/18 04:36 Dose: 10 mg Micafungin Sodium 100 mg/ (Sodium Chloride) 100 mls @ 100 mls/hr IVPB DAILY [facility]; Protocol Last Admin: 09/14/18 08:29 Dose: 100 mls/hr Linezolid (Zyvox 600mg/300ml D5w) 600 mg in 300 mls @ 300 mls/hr IVPB Q12 [facility]; Protocol Meropenem 1 gm/ Sodium (Chloride) 100 mls @ 100 mls/hr IVPB Q8 [facility]; Protocol Insulin Detemir (Levemir) 20 units SC DAILY [facility] Last Admin: 09/14/18 08:24 Dose: 20 units Insulin Human Lispro (Humalog) 0 units SC Q6 [facility]; Protocol Last Admin: 09/14/18 10:46 Dose: 6 unit Lorazepam (Ativan) 0.5 mg IVP Q4 [facility] Last Admin: 09/14/18 12:18 Dose: 0.5 mg Metformin HCl (Glucophage) 1,000 mg PO BID [facility] Last Admin: 08/16/18 09:34 Dose: Not Given Methylprednisolone (Solu-Medrol) 60 mg IV Q6H [facility] Last Admin: 09/14/18 08:31 Dose: 60 mg Metoprolol Tartrate (Lopressor) 25 mg PO Q6 [facility] Last Admin: 09/14/18 09:23 Dose: 25 mg Morphine Sulfate (Morphine) 1 mg IVP Q4 [facility] Last Admin: 09/14/18 12:18 Dose: 1 mg Nystatin (Nystop Topical Powder) 1 applic TOP TID [facility] Last Admin: 09/14/18 12:19 Dose: 1 applic Pantoprazole Sodium (Protonix Susp) 40 mg NG DAILY [facility] Last Admin: 09/14/18 08:31 Dose: 40 mg Sucralfate (Carafate Oral Susp) 1 gm PO ACHS [facility] Last Admin: 08/18/18 22:07 Dose: 1 gm - Labs Labs: 09/14/18 04:40 09/14/18 04:40 PT 13.1 Seconds (9.8-13.1) 09/12/18 11:00 INR 1.2 09/12/18 11:00 APTT 22.2 Seconds (25.6-37.1) L 09/12/18 11:00 - Constitutional Appears: Chronically Ill - Head Exam Head Exam: NORMAL INSPECTION - Eye Exam Eye Exam: PERRL - ENT Exam Additional comments: intubated - Neck Exam Neck Exam: Normal Inspection - Respiratory Exam Respiratory Exam: Decreased Breath Sounds (at bases) Additional comments: B/L pigtail - Cardiovascular Exam Cardiovascular Exam: REGULAR RHYTHM - GI/Abdominal Exam GI & Abdominal Exam: Distended, Soft, Normal Bowel Sounds - Back Exam Additional comments: edema - Neurological Exam Additional comments: restless, moving head and all extremities - Skin Skin Exam: Warm Assessment and Plan (1) Acute respiratory failure Status: Resolved (2) Cardiac arrest Status: Resolved (3) Aspiration pneumonia Status: Acute (4) Pleural effusion Status: Acute (5) Atelectasis of both lungs Status: Acute (6) NSTEMI (non-ST elevated myocardial infarction) Status: Acute (7) CHF (congestive heart failure) Status: Acute (8) DVT (deep venous thrombosis) Status: Acute (9) Severe anemia Status: Resolved - Assessment and Plan (Free Text) Plan: CXR worsening infiltrates, Atb change by ID, FIO2 decreased 65%, ECHO LVEF 55- 60%, MR, r/o vegetation, for Trach, attempt of FOB, Cardiac clearance Critical care time: 32 min.
[2018-09-14 14:31] LABS: INR 1.1; PROTHROMBIN TIME 12.1 Seconds (9.8-13.1)
[2018-09-14 14:33] LABS: PARTIAL THROMBOPLASTIN TIME 24.8 Seconds (25.6-37.1)
[2018-09-14] MEDS: Meropenem 1 GM in Sodium Chloride 0.9% 100 ML IVPB SCH (16:58)
[2018-09-14] MEDS: AMPHOTERICIN B IVPB SCH (17:57)
[2018-09-14] MEDS: WATER IVPB SCH (17:57)
[2018-09-14] MEDS: DEXTROSE 5% IVPB SCH (17:57)
[2018-09-14] MEDS: Linezolid 600 mg in D5W 300 ml 600 MG/300 ML BAG IVPB SCH (20:16)
--- NOTE | 2018-09-14 21:12 | CARD ---
APPROVED REPORT Date of service: 09/14/2018 EXAM: Two-dimensional and M-mode echocardiogram with Doppler and color Doppler. Other Information Quality : AverageRhythm : Tachycardia Technically limited study due to Pt on Maynor,with chest tubes. INDICATION Infection:Subacute bacterial endocarditis Mitral Valve MV E Wrtziuyw24.7cm/sMV DECEL [id number] A Zeqajkge75.6cm/s MV ZBS97vwA/A ratio1.1MVA (PHT)4.41cm2 TDI Lateral E' Peak V7.82cm/sMedial E' Peak V5.54cm/sE/Lateral E'12.7 E/Medial E'18.0 Tricuspid Valve TR Peak Wngutwhm126gc/sRAP [id number] Peak Gr.50mmHg [id number] LEFT VENTRICLE The left ventricle is normal size. There is normal left ventricular wall thickness. The left ventricular systolic function is normal. The estimated ejection fraction is 55-60% No regional wall motion abnormalities noted.. Transmitral Doppler flow pattern is Grade I-abnormal relaxation pattern. No left ventricle thrombus noted on this study. There is no ventricular septal defect visualized. There is no left ventricular aneurysm. There is no mass noted in the left ventricle. RIGHT VENTRICLE The right ventricle is normal size. There is normal right ventricular wall thickness. The right ventricular systolic function is normal. ATRIA The left atrium size is dilated. The right atrium size is normal. The interatrial septum is intact with no evidence for an atrial septal defect. AORTIC VALVE The aortic valve is normal in structure. No aortic regurgitation is present. There is no aortic valvular stenosis. There is no aortic valvular vegetation. MITRAL VALVE The mitral valve is normal in structure. There is no evidence of mitral valve prolapse. There is no mitral valve stenosis. There is moderate to severe mitral valve regurgitation noted. It is a new change from recent echo on 08/23/18. Cannot rule out vegetation/ endocarditis. Consider CHELSEY if clinically indicated. TRICUSPID VALVE The tricuspid valve is normal in structure. There is moderate tricuspid valve regurgitation noted. RVSP is calculated at 55 mm Hg. Consistent with mild to moderate pulmonary HTN. There is no tricuspid valve prolapse or vegetation. There is no tricuspid valve stenosis. PULMONIC VALVE The pulmonary valve is normal in structure. There is no pulmonic valvular regurgitation. There is no pulmonic valvular stenosis. GREAT VESSELS The aortic root is normal in size. The ascending aorta is normal in size. The pulmonary artery is normal. The IVC is normal in size and collapses >50% with inspiration. PERICARDIAL EFFUSION There is no pericardial effusion. There is no pleural effusion. <Conclusion> Technically difficult study. The estimated ejection fraction is 55-60% Transmitral Doppler flow pattern is Grade I-abnormal relaxation pattern. There is moderate to severe mitral valve regurgitation noted. It is a new change from recent echo on 08/23/18. Cannot rule out vegetation/ endocarditis. Consider CHELSEY if clinically indicated. There is moderate tricuspid valve regurgitation noted. RVSP is calculated at 55 mm Hg. Consistent with mild to moderate pulmonary HTN.
[2018-09-15] MEDS: Meropenem 1 GM in Sodium Chloride 0.9% 100 ML IVPB SCH ×3 (00:05→16:41)
[2018-09-15] MEDS: Proshield Plus GEL TOP SCH ×3 (00:11→16:48)
[2018-09-15] MEDS: Albuterol-Ipratrop 3 mg / 0.5 (3 ml) UD INH SCH ×4 (01:00→19:23)
[2018-09-15] MEDS: Insulin Lispro (humaLOG) 100 Units/ml Inj SC SCH ×4 (04:08→22:00)
[2018-09-15 05:51] LABS: HEMOGLOBIN 9.5 g/dL (12.0-16.0); MEAN CELL VOLUME 88.8 fl (81.0-99.0); MEAN CORPUSCULAR HEMOGLOBIN 28.5 pg (27.0-31.0); MEAN CORPUSCULAR HGB CONC 32.1 g/dL (33.0-37.0); RBC 3.34 Mil/uL (3.80-5.20); WHITE BLOOD COUNT 22.8 K/uL (4.8-10.8)
[2018-09-15 06:04] LABS: BLOOD UREA NITROGEN 71 mg/dl (7-17); GFR NON-AFRICAN AMERICAN 54
[2018-09-15 06:10] LABS: ABG ALLEN TEST YES; ARTERIAL BLOOD GAS HEMOGLOBIN 10.2 g/dL (11.7-17.4); ARTERIAL BLOOD GAS O2 CAPACITY 13.8 mL/dL (16-24); ARTERIAL BLOOD GAS O2 SAT 94.2 % (95-98); ARTERIAL BLOOD GAS PCO2 40 mm/Hg (35-45); ARTERIAL BLOOD GAS PH 7.49 (7.35-7.45); ARTERIAL BLOOD GAS PO2 55 mm/Hg (80-100); ARTERIAL BLOOD GAS TCO2 31.7 mmol/L (22-28)
--- NOTE | 2018-09-15 08:58 | RAD ---
Date of service: 09/15/2018 HISTORY: intubated COMPARISON: 09/14/2018 FINDINGS: LUNGS: Extensive bilateral airspace opacity, mildly improved. PLEURA: Bilateral pleural pigtail catheters. No pneumothorax. No evidence of pleural effusion. CARDIOVASCULAR: Normal heart size. Endotracheal tube, nasogastric tube unchanged in position. Left PICC catheter unchanged. Normal cardiac size. No pulmonary vascular congestion. OSSEOUS STRUCTURES: No significant abnormalities. VISUALIZED UPPER ABDOMEN: Normal. OTHER FINDINGS: None. IMPRESSION: Mild improvement in extensive bilateral pulmonary opacity. Possible pulmonary edema versus bilateral pneumonia. Lines and tubes unchanged. Bilateral pleural pigtail catheters without pneumothorax.
[2018-09-15] MEDS: Linezolid 600 mg in D5W 300 ml 600 MG/300 ML BAG IVPB SCH ×2 (09:16→20:36)
--- NOTE | 2018-09-15 10:13 | CP.PCM.PN ---
Subjective - Date & Time of Evaluation Date of Evaluation: 09/15/18 Time of Evaluation: 10:05 - Subjective Subjective: General Surgery Pt seen and examined this AM. No visitors at bedside. Pt continues to be mechanically ventilated. Vent settings improved since yesterday. FIo2 is at 65% and PEEP 8. Last fever on 09/12. Pt remains on contact precautions for VRE in blood. Currently NPO, pending a bronchopscopy. Labs and vitals noted. WBC remains elevated 22.8. Last lactic acid 4.7 yesterday, also trending up. Gen: Pt laying in bed, restless, turning her head side and side and moving her restrained arms. Pt does not respond or open eyes. Skin: warm and dry, non blanching ecchymosis noted to right side of abdomen and suprapubic region. Cardio: S1s2 RRR Lungs: CTA bilaterally in anterior lung bertrand. (+) chest tube in place. Abd: Soft, (-) apparent tenderness, (-) involuntarily guarding : (+) hughes with clear yellow urine, (+) rectal tube with liquid brown stool Extr: (+) trace edema to lle. A/P Consulted for tracheostomy Pt pending cardiology clearance Pending family's decision, as per ICU rounds family has not yet decided Hold aspirin Pt needs to be medically optimized prior to non emergent surgery. Objective - Vital Signs/Intake and Output Vital Signs (last 24 hours): Temp Pulse Resp BP Pulse Ox 98.9 F 94 H 28 H 174/91 H 100 09/15/18 08:00 09/15/18 09:17 09/15/18 08:00 09/15/18 09:17 09/15/18 08:00 Intake and Output: 09/15/18 09/15/18 06:59 18:59 Intake Total 1542 300 Output Total 970 Balance 572 300 - Medications Medications: Current Medications Acetaminophen (Tylenol 650mg/20.3ml Solution Ud) 650 mg NG Q6 PRN PRN Reason: Temperature Last Admin: 09/12/18 01:31 Dose: 650 mg Acetaminophen (Tylenol 650mg/20.3ml Solution Ud) 650 mg PO Q6 PRN PRN Reason: Pain, Mild (1-3) Last Admin: 09/02/18 05:54 Dose: 650 mg Albuterol/Ipratropium (Duoneb 3 Mg/0.5 Mg (3 Ml) Ud) 3 ml INH RQ6 [facility] Last Admin: 09/15/18 07:23 Dose: 3 ml Aspirin (Aspirin Chewable) 81 mg NG DAILY [facility] Last Admin: 09/12/18 08:18 Dose: 81 mg Dimethicone (Proshield Plus Skin Protectant) 1 applic TOP Q8 [facility] Last Admin: 09/15/18 09:14 Dose: 1 applic Enoxaparin Sodium (Lovenox) 40 mg SC DAILY [facility]; Protocol Last Admin: 09/14/18 08:25 Dose: 40 mg Hydralazine HCl (Apresoline) 10 mg IV Q6 PRN PRN Reason: Systolic Blood Pressure Last Admin: 09/12/18 04:36 Dose: 10 mg Linezolid (Zyvox 600mg/300ml D5w) 600 mg in 300 mls @ 300 mls/hr IVPB Q12 [facility]; Protocol Last Admin: 09/15/18 09:16 Dose: 300 mls/hr Meropenem 1 gm/ Sodium (Chloride) 100 mls @ 100 mls/hr IVPB Q8 [facility]; Protocol Last Admin: 09/15/18 09:14 Dose: 100 mls/hr Amphotericin B 70 mg/ Dextrose 250 mls @ 42 mls/hr IVPB DAILY [facility]; Protocol Last Admin: 09/14/18 17:57 Dose: 42 mls/hr Insulin Detemir (Levemir) 20 units SC DAILY [facility] Last Admin: 09/14/18 08:24 Dose: 20 units Insulin Human Lispro (Humalog) 0 units SC Q6 [facility]; Protocol Last Admin: 09/15/18 04:08 Dose: 4 unit Lorazepam (Ativan) 0.5 mg IVP Q4 [facility] Last Admin: 09/15/18 09:47 Dose: 0.5 mg Metformin HCl (Glucophage) 1,000 mg PO BID [facility] Last Admin: 08/16/18 09:34 Dose: Not Given Methylprednisolone (Solu-Medrol) 60 mg IV Q6H [facility] Last Admin: 09/15/18 09:15 Dose: 60 mg Metoprolol Tartrate (Lopressor) 25 mg PO Q6 [facility] Last Admin: 09/15/18 09:17 Dose: 25 mg Morphine Sulfate (Morphine) 1 mg IVP Q4 [facility] Last Admin: 09/15/18 09:46 Dose: 1 mg Nystatin (Nystop Topical Powder) 1 applic TOP TID [facility] Last Admin: 09/15/18 09:14 Dose: 1 applic Pantoprazole Sodium (Protonix Susp) 40 mg NG DAILY [facility] Last Admin: 09/14/18 08:31 Dose: 40 mg Sucralfate (Carafate Oral Susp) 1 gm PO ACHS [facility] Last Admin: 08/18/18 22:07 Dose: 1 gm - Labs Labs: 09/15/18 04:30 09/15/18 04:30 PT 12.1 Seconds (9.8-13.1) 09/14/18 13:30 INR 1.1 09/14/18 13:30 APTT 24.8 Seconds (25.6-37.1) L 09/14/18 13:30
--- NOTE | 2018-09-15 12:01 | CP.CCUPN ---
CCU Subjective - Physician Review Subjective (Free Text): On Ativan / Morphine sedation; at RASS neg 3. Other vitals and I/O's reviewed, no recurrent fever spikes since last episode on 09/12 at midnight with 102.5F Temp. BP 110s to 170s, HR 71. Urine output approx. 1600 ml [id number] with overall positive 1.5 L fluid balance. ROS: No other pertinent negs or positives on 10+ system review unobtainable on MV. PMSFH: DM II, HTN, Gastritis. All other Nursing and physician documentation reviewed to date; no new pertinent info noted relevant to current medical problems. EXAM- HEENT: no icterus, no gaze preference, Pupils 3 mm and reactive NECK: No JVD visible, supple, carotids equal upstroke bilat/no bruit CHEST: decreased BS at the bases, no wheezes audible HEART: regular, distant, S1S2, no rubs ABD: soft and nontender, no tympany, no guarding, no organomegaly, BS hypoactive EXT: trace LE edema, no calf tenderness or palpable cords, distal pulses intact and symmetrical. NEURO: no focal motor weakness SKIN: no rashes, warm and dry LABS: WBC= 22.8 HGB= 9.5 PLTs= 196K INR= 1.1 7.49/ 40/55 Na= 150 K= 3.6 OP=821 HCO3= 28 BUN/Cr= 71/1.0 BS= 239 CXR: - ETT OK above kevon, overall appears worse today; bilateral pigtail catheters in place, no PTX seen. ( my interp) IMPRESSION / MAJOR PROBLEMS NOW: 1. Acute Hypoxemic Resp Failure 2 non-resolving Pneumonia / Pneumonitis- unresponsive to multiple antibiotic / antifungal regimens and steroids. 2. Acute / Subacute NSTEMI 3. Coag neg Staph Bacteremia and VRE Bacteremia 4. s/p Azotemia / Dehydration, with Hypernatremia: Na levels slowly improving (recurrent free water deficit, has been on Diuretics) r/o [place] ATN 5. Uncontrolled DM II PLAN: 1. FiO2 reduced to 50% for now. May benefit from FOB/BAL for non-resolving pneumonia. Abx coverage changed again to Lisa/Zyvox / AmphoB. 2. New ECHO results noted, any vegetations not definitively ruled out, other new findings noted; Cardio f/u. 3. Ongoing free water, as per Nephro. Glycemic control slightly better. 4. Vasculitis w/u negative so far. 5. Trach still pending.
--- NOTE | 2018-09-15 16:32 | CP.PCM.PN ---
Subjective - Date & Time of Evaluation Date of Evaluation: 09/15/18 Time of Evaluation: 16:30 - Subjective Subjective: patient remains intubated. scheduled for tracheostomy and bronchoscopy. Objective - Vital Signs/Intake and Output Vital Signs (last 24 hours): Temp Pulse Resp BP Pulse Ox 98.5 F 95 H 12 165/85 H 100 09/15/18 16:00 09/15/18 16:00 09/15/18 16:00 09/15/18 16:00 09/15/18 16:00 Intake and Output: 09/15/18 09/15/18 06:59 18:59 Intake Total 1542 550 Output Total 970 150 Balance 572 400 - Medications Medications: Current Medications Acetaminophen (Tylenol 650mg/20.3ml Solution Ud) 650 mg NG Q6 PRN PRN Reason: Temperature Last Admin: 09/12/18 01:31 Dose: 650 mg Acetaminophen (Tylenol 650mg/20.3ml Solution Ud) 650 mg PO Q6 PRN PRN Reason: Pain, Mild (1-3) Last Admin: 09/02/18 05:54 Dose: 650 mg Albuterol/Ipratropium (Duoneb 3 Mg/0.5 Mg (3 Ml) Ud) 3 ml INH RQ6 [facility] Last Admin: 09/15/18 13:05 Dose: 3 ml Aspirin (Aspirin Chewable) 81 mg NG DAILY [facility] Last Admin: 09/12/18 08:18 Dose: 81 mg Dimethicone (Proshield Plus Skin Protectant) 1 applic TOP Q8 [facility] Last Admin: 09/15/18 09:14 Dose: 1 applic Enoxaparin Sodium (Lovenox) 40 mg SC DAILY [facility]; Protocol Last Admin: 09/14/18 08:25 Dose: 40 mg Hydralazine HCl (Apresoline) 10 mg IV Q6 PRN PRN Reason: Systolic Blood Pressure Last Admin: 09/12/18 04:36 Dose: 10 mg Linezolid (Zyvox 600mg/300ml D5w) 600 mg in 300 mls @ 300 mls/hr IVPB Q12 [facility]; Protocol Last Admin: 09/15/18 09:16 Dose: 300 mls/hr Meropenem 1 gm/ Sodium (Chloride) 100 mls @ 100 mls/hr IVPB Q8 [facility]; Protocol Last Admin: 09/15/18 09:14 Dose: 100 mls/hr Amphotericin B 70 mg/ Dextrose 500 mls @ 83.333 mls/hr IVPB DAILY@1800 [facility]; Protocol Insulin Detemir (Levemir) 20 units SC DAILY [facility] Last Admin: 09/14/18 08:24 Dose: 20 units Insulin Human Lispro (Humalog) 0 units SC Q6 [facility]; Protocol Last Admin: 09/15/18 12:18 Dose: 4 unit Lorazepam (Ativan) 0.5 mg IVP Q4 PRN PRN Reason: Agitation Metformin HCl (Glucophage) 1,000 mg PO BID [facility] Last Admin: 08/16/18 09:34 Dose: Not Given Methylprednisolone (Solu-Medrol) 60 mg IV Q6H [facility] Last Admin: 09/15/18 09:15 Dose: 60 mg Metoprolol Tartrate (Lopressor) 25 mg PO Q6 [facility] Last Admin: 09/15/18 09:17 Dose: 25 mg Morphine Sulfate (Morphine) 1 mg IVP Q4 PRN PRN Reason: Agitation Nystatin (Nystop Topical Powder) 1 applic TOP TID [facility] Last Admin: 09/15/18 12:19 Dose: 1 applic Pantoprazole Sodium (Protonix Susp) 40 mg NG DAILY [facility] Last Admin: 09/14/18 08:31 Dose: 40 mg Sucralfate (Carafate Oral Susp) 1 gm PO ACHS [facility] Last Admin: 08/18/18 22:07 Dose: 1 gm - Labs Labs: 09/15/18 04:30 09/15/18 04:30 PT 12.1 Seconds (9.8-13.1) 09/14/18 13:30 INR 1.1 09/14/18 13:30 APTT 24.8 Seconds (25.6-37.1) L 09/14/18 13:30 - Constitutional Appears: Chronically Ill - Head Exam Head Exam: NORMAL INSPECTION - Eye Exam Eye Exam: Normal appearance - ENT Exam ENT Exam: Mucous Membranes Moist - Neck Exam Neck Exam: absent: Lymphadenopathy - Respiratory Exam Respiratory Exam: Decreased Breath Sounds - Cardiovascular Exam Cardiovascular Exam: REGULAR RHYTHM - GI/Abdominal Exam GI & Abdominal Exam: Normal Bowel Sounds - Rectal Exam Rectal Exam: Deferred - Extremities Exam Extremities Exam: absent: Pedal Edema - Back Exam Back Exam: NORMAL INSPECTION - Neurological Exam Neurological Exam: Alert - Psychiatric Exam Psychiatric exam: Normal Affect - Skin Skin Exam: Normal Color Assessment and Plan (1) Preoperative cardiovascular examination Assessment & Plan: reviewed latest echocardiogram. LV function is normal. Moderate mitral regurgitation. no new cultures data. checklcultures. stable for tracheostomy and bronchosscpoy Status: Acute
[2018-09-15] MEDS: Insulin Detemir 100 Units/ml Inj SC SCH (16:39)
[2018-09-15] MEDS: Enoxaparin 40 mg Syringe SC SCH (16:40)
--- NOTE | 2018-09-15 16:45 | CP.PCM.PN ---
Subjective - Date & Time of Evaluation Date of Evaluation: 09/15/18 Time of Evaluation: 16:44 - Subjective Subjective: renal note no events overnight vitals reviewed NAD lying in bed HEENT: no icterus, NECK: No JVD CHEST: decreased BS at the bases, no wheezes HEART: regular, distant, S1S2, no rubs ABD: soft and nontender, no guarding, no organomegaly, BS hypoactive EXT: trace LE edema, distal pulses intact and symmetrical. NEURO: no focal motor weakness SKIN: no rashes, adelina/sepsis sydnrome/hypernatremia/acute resp failure cr is stable non oliguric monitor UOP sodium levels slowly improving continue free water replacement Objective - Vital Signs/Intake and Output Vital Signs (last 24 hours): Temp Pulse Resp BP Pulse Ox 98.5 F 95 H 12 165/85 H 100 09/15/18 16:00 09/15/18 16:40 09/15/18 16:00 09/15/18 16:40 09/15/18 16:00 Intake and Output: 09/15/18 09/15/18 06:59 18:59 Intake Total 1542 1462 Output Total 970 220 Balance 572 1242 - Medications Medications: Current Medications Acetaminophen (Tylenol 650mg/20.3ml Solution Ud) 650 mg NG Q6 PRN PRN Reason: Temperature Last Admin: 09/12/18 01:31 Dose: 650 mg Acetaminophen (Tylenol 650mg/20.3ml Solution Ud) 650 mg PO Q6 PRN PRN Reason: Pain, Mild (1-3) Last Admin: 09/02/18 05:54 Dose: 650 mg Albuterol/Ipratropium (Duoneb 3 Mg/0.5 Mg (3 Ml) Ud) 3 ml INH RQ6 [facility] Last Admin: 09/15/18 13:05 Dose: 3 ml Aspirin (Aspirin Chewable) 81 mg NG DAILY [facility] Last Admin: 09/12/18 08:18 Dose: 81 mg Dimethicone (Proshield Plus Skin Protectant) 1 applic TOP Q8 [facility] Last Admin: 09/15/18 09:14 Dose: 1 applic Enoxaparin Sodium (Lovenox) 40 mg SC DAILY [facility]; Protocol Last Admin: 09/15/18 16:40 Dose: 40 mg Hydralazine HCl (Apresoline) 10 mg IV Q6 PRN PRN Reason: Systolic Blood Pressure Last Admin: 09/12/18 04:36 Dose: 10 mg Linezolid (Zyvox 600mg/300ml D5w) 600 mg in 300 mls @ 300 mls/hr IVPB Q12 [facility]; Protocol Last Admin: 09/15/18 09:16 Dose: 300 mls/hr Meropenem 1 gm/ Sodium (Chloride) 100 mls @ 100 mls/hr IVPB Q8 [facility]; Protocol Last Admin: 09/15/18 16:41 Dose: 100 mls/hr Amphotericin B 70 mg/ Dextrose 500 mls @ 83.333 mls/hr IVPB DAILY@1800 [facility]; Protocol Insulin Detemir (Levemir) 20 units SC DAILY [facility] Last Admin: 09/15/18 16:39 Dose: 20 units Insulin Human Lispro (Humalog) 0 units SC Q6 [facility]; Protocol Last Admin: 09/15/18 16:38 Dose: 6 unit Lorazepam (Ativan) 0.5 mg IVP Q4 PRN PRN Reason: Agitation Metformin HCl (Glucophage) 1,000 mg PO BID [facility] Last Admin: 08/16/18 09:34 Dose: Not Given Methylprednisolone (Solu-Medrol) 60 mg IV Q6H [facility] Last Admin: 09/15/18 09:15 Dose: 60 mg Metoprolol Tartrate (Lopressor) 25 mg PO Q6 [facility] Last Admin: 09/15/18 16:40 Dose: 25 mg Morphine Sulfate (Morphine) 1 mg IVP Q4 PRN PRN Reason: Agitation Nystatin (Nystop Topical Powder) 1 applic TOP TID [facility] Last Admin: 09/15/18 12:19 Dose: 1 applic Pantoprazole Sodium (Protonix Susp) 40 mg NG DAILY [facility] Last Admin: 09/14/18 08:31 Dose: 40 mg Sucralfate (Carafate Oral Susp) 1 gm PO ACHS [facility] Last Admin: 08/18/18 22:07 Dose: 1 gm - Labs Labs: 09/15/18 04:30 09/15/18 04:30 PT 12.1 Seconds (9.8-13.1) 09/14/18 13:30 INR 1.1 09/14/18 13:30 APTT 24.8 Seconds (25.6-37.1) L 09/14/18 13:30
[2018-09-15] MEDS: Pantoprazole 40 mg Susp UD NG SCH (16:49)
[2018-09-15] MEDS: WATER IVPB SCH ×2 (16:50→17:30)
[2018-09-15] MEDS: DEXTROSE 5% IVPB SCH ×2 (16:50→17:30)
[2018-09-15] MEDS: AMPHOTERICIN B IVPB SCH ×2 (16:50→17:30)
--- NOTE | 2018-09-15 16:51 | CP.PCM.PN ---
Subjective - Date & Time of Evaluation Date of Evaluation: 09/15/18 Time of Evaluation: 13:30 - Subjective Subjective: F/U Respiratory Failure Pt restless, restrained, intubated Objective - Vital Signs/Intake and Output Vital Signs (last 24 hours): Temp Pulse Resp BP Pulse Ox 98.5 F 95 H 12 165/85 H 100 09/15/18 16:00 09/15/18 16:40 09/15/18 16:00 09/15/18 16:40 09/15/18 16:00 Intake and Output: 09/15/18 09/15/18 06:59 18:59 Intake Total 1542 1462 Output Total 970 220 Balance 572 1242 - Medications Medications: Current Medications Acetaminophen (Tylenol 650mg/20.3ml Solution Ud) 650 mg NG Q6 PRN PRN Reason: Temperature Last Admin: 09/12/18 01:31 Dose: 650 mg Acetaminophen (Tylenol 650mg/20.3ml Solution Ud) 650 mg PO Q6 PRN PRN Reason: Pain, Mild (1-3) Last Admin: 09/02/18 05:54 Dose: 650 mg Albuterol/Ipratropium (Duoneb 3 Mg/0.5 Mg (3 Ml) Ud) 3 ml INH RQ6 [facility] Last Admin: 09/15/18 13:05 Dose: 3 ml Aspirin (Aspirin Chewable) 81 mg NG DAILY [facility] Last Admin: 09/12/18 08:18 Dose: 81 mg Dimethicone (Proshield Plus Skin Protectant) 1 applic TOP Q8 [facility] Last Admin: 09/15/18 16:48 Dose: 1 applic Enoxaparin Sodium (Lovenox) 40 mg SC DAILY [facility]; Protocol Last Admin: 09/15/18 16:40 Dose: 40 mg Hydralazine HCl (Apresoline) 10 mg IV Q6 PRN PRN Reason: Systolic Blood Pressure Last Admin: 09/12/18 04:36 Dose: 10 mg Linezolid (Zyvox 600mg/300ml D5w) 600 mg in 300 mls @ 300 mls/hr IVPB Q12 [facility]; Protocol Last Admin: 09/15/18 09:16 Dose: 300 mls/hr Meropenem 1 gm/ Sodium (Chloride) 100 mls @ 100 mls/hr IVPB Q8 [facility]; Protocol Last Admin: 09/15/18 16:41 Dose: 100 mls/hr Amphotericin B 70 mg/ Dextrose 500 mls @ 83.333 mls/hr IVPB DAILY@1800 [facility]; Protocol Insulin Detemir (Levemir) 20 units SC DAILY [facility] Last Admin: 09/15/18 16:39 Dose: 20 units Insulin Human Lispro (Humalog) 0 units SC Q6 [facility]; Protocol Last Admin: 09/15/18 16:38 Dose: 6 unit Lorazepam (Ativan) 0.5 mg IVP Q4 PRN PRN Reason: Agitation Metformin HCl (Glucophage) 1,000 mg PO BID [facility] Last Admin: 08/16/18 09:34 Dose: Not Given Methylprednisolone (Solu-Medrol) 60 mg IV Q6H [facility] Last Admin: 09/15/18 16:49 Dose: 60 mg Metoprolol Tartrate (Lopressor) 25 mg PO Q6 [facility] Last Admin: 09/15/18 16:40 Dose: 25 mg Morphine Sulfate (Morphine) 1 mg IVP Q4 PRN PRN Reason: Agitation Last Admin: 09/15/18 16:47 Dose: 1 mg Nystatin (Nystop Topical Powder) 1 applic TOP TID [facility] Last Admin: 09/15/18 16:48 Dose: 1 applic Pantoprazole Sodium (Protonix Susp) 40 mg NG DAILY [facility] Last Admin: 09/15/18 16:49 Dose: 40 mg Sucralfate (Carafate Oral Susp) 1 gm PO ACHS [facility] Last Admin: 08/18/18 22:07 Dose: 1 gm - Labs Labs: 09/15/18 04:30 09/15/18 04:30 PT 12.1 Seconds (9.8-13.1) 09/14/18 13:30 INR 1.1 09/14/18 13:30 APTT 24.8 Seconds (25.6-37.1) L 09/14/18 13:30 - Constitutional Appears: Chronically Ill - Head Exam Head Exam: NORMAL INSPECTION - Eye Exam Eye Exam: PERRL - ENT Exam Additional comments: Intubated - Neck Exam Neck Exam: Normal Inspection - Respiratory Exam Respiratory Exam: Decreased Breath Sounds (at bases) - Cardiovascular Exam Cardiovascular Exam: REGULAR RHYTHM - GI/Abdominal Exam GI & Abdominal Exam: Soft, Normal Bowel Sounds - Extremities Exam Additional comments: Trace edema L/E - Neurological Exam Additional comments: Intubated, restless, no focal motor weakness. - Skin Skin Exam: Warm Assessment and Plan (1) Acute respiratory failure Status: Resolved (2) Cardiac arrest Status: Resolved (3) Aspiration pneumonia Status: Acute (4) Pleural effusion Status: Acute (5) Atelectasis of both lungs Status: Acute (6) NSTEMI (non-ST elevated myocardial infarction) Status: Acute (7) CHF (congestive heart failure) Status: Acute (8) DVT (deep venous thrombosis) Status: Acute (9) Severe anemia Status: Resolved - Assessment and Plan (Free Text) Plan: CXR: B/L infiltrates Continue Zyvox, Merren, Amphotericin B , SoluMedrol, and rest of tx., Cars[facility] clearance for Tracheostomy Critical care time: 33 min.
--- NOTE | 2018-09-15 19:38 | CP.PCM.PN ---
Subjective - Date & Time of Evaluation Date of Evaluation: 09/15/18 Time of Evaluation: 08:00 - Subjective Subjective: 73 yo female admitted with sepsis and acute NSTEMI had cholecystitis but not a surgical candidate develoed VRE sepsis then pneumonia and septic shock remains intubated on multiple antibiotics and now amphotericin B was added surgery following - would consider repeat CT abd at some point to see if cholecystotomy needed no new poositive cultures yet all lines have been changed and repeat blood cultures negative prognosis remains poor from the outset Objective - Vital Signs/Intake and Output Vital Signs (last 24 hours): Temp Pulse Resp BP Pulse Ox 98.5 F 67 19 169/71 H 100 09/15/18 16:00 09/15/18 17:54 09/15/18 17:54 09/15/18 17:54 09/15/18 17:54 Intake and Output: 09/15/18 09/16/18 18:59 06:59 Intake Total 1962 Output Total 820 Balance 1142 - Medications Medications: Current Medications Acetaminophen (Tylenol 650mg/20.3ml Solution Ud) 650 mg NG Q6 PRN PRN Reason: Temperature Last Admin: 09/12/18 01:31 Dose: 650 mg Acetaminophen (Tylenol 650mg/20.3ml Solution Ud) 650 mg PO Q6 PRN PRN Reason: Pain, Mild (1-3) Last Admin: 09/02/18 05:54 Dose: 650 mg Albuterol/Ipratropium (Duoneb 3 Mg/0.5 Mg (3 Ml) Ud) 3 ml INH RQ6 [facility] Last Admin: 09/15/18 19:23 Dose: 3 ml Aspirin (Aspirin Chewable) 81 mg NG DAILY [facility] Last Admin: 09/12/18 08:18 Dose: 81 mg Dimethicone (Proshield Plus Skin Protectant) 1 applic TOP Q8 [facility] Last Admin: 09/15/18 16:48 Dose: 1 applic Enoxaparin Sodium (Lovenox) 40 mg SC DAILY [facility]; Protocol Last Admin: 09/15/18 16:40 Dose: 40 mg Hydralazine HCl (Apresoline) 10 mg IV Q6 PRN PRN Reason: Systolic Blood Pressure Last Admin: 09/12/18 04:36 Dose: 10 mg Linezolid (Zyvox 600mg/300ml D5w) 600 mg in 300 mls @ 300 mls/hr IVPB Q12 [facility]; Protocol Last Admin: 09/15/18 09:16 Dose: 300 mls/hr Meropenem 1 gm/ Sodium (Chloride) 100 mls @ 100 mls/hr IVPB Q8 [facility]; Protocol Last Admin: 09/15/18 16:41 Dose: 100 mls/hr Amphotericin B 70 mg/ Dextrose 500 mls @ 83.333 mls/hr IVPB DAILY@1800 [facility]; Protocol Last Admin: 09/15/18 17:30 Dose: 83.333 mls/hr Insulin Detemir (Levemir) 20 units SC DAILY [facility] Last Admin: 09/15/18 16:39 Dose: 20 units Insulin Human Lispro (Humalog) 0 units SC Q6 [facility]; Protocol Last Admin: 09/15/18 16:38 Dose: 6 unit Lorazepam (Ativan) 0.5 mg IVP Q4 PRN PRN Reason: Agitation Metformin HCl (Glucophage) 1,000 mg PO BID [facility] Last Admin: 08/16/18 09:34 Dose: Not Given Methylprednisolone (Solu-Medrol) 60 mg IV Q6H [facility] Last Admin: 09/15/18 16:49 Dose: 60 mg Metoprolol Tartrate (Lopressor) 25 mg PO Q6 [facility] Last Admin: 09/15/18 16:40 Dose: 25 mg Morphine Sulfate (Morphine) 1 mg IVP Q4 PRN PRN Reason: Agitation Last Admin: 09/15/18 16:47 Dose: 1 mg Nystatin (Nystop Topical Powder) 1 applic TOP TID [facility] Last Admin: 09/15/18 16:48 Dose: 1 applic Pantoprazole Sodium (Protonix Susp) 40 mg NG DAILY [facility] Last Admin: 09/15/18 16:49 Dose: 40 mg Sucralfate (Carafate Oral Susp) 1 gm PO ACHS [facility] Last Admin: 08/18/18 22:07 Dose: 1 gm - Labs Labs: 09/15/18 04:30 09/15/18 04:30 PT 12.1 Seconds (9.8-13.1) 09/14/18 13:30 INR 1.1 09/14/18 13:30 APTT 24.8 Seconds (25.6-37.1) L 09/14/18 13:30 - Constitutional Appears: Toxic, Confused, Cachectic - Head Exam Head Exam: NORMOCEPHALIC Additional comments: agitated - Eye Exam Eye Exam: absent: Scleral icterus - ENT Exam ENT Exam: Mucous Membranes Dry - Neck Exam Neck Exam: absent: Lymphadenopathy - Respiratory Exam Respiratory Exam: Decreased Breath Sounds, Prolonged Expiratory Phase, Rhonchi Additional comments: chest tubbe in place left side - Cardiovascular Exam Cardiovascular Exam: Tachycardia, REGULAR RHYTHM, +S1, +S2 - GI/Abdominal Exam GI & Abdominal Exam: Distended, Soft, Tenderness - Rectal Exam Rectal Exam: Deferred - Exam Exam: NORMAL INSPECTION - Extremities Exam Extremities Exam: Pedal Edema. absent: Joint Swelling - Back Exam Back Exam: absent: CVA tenderness (L), CVA tenderness (R) - Neurological Exam Neurological Exam: Altered - Psychiatric Exam Psychiatric exam: Depressed - Skin Skin Exam: Dry Assessment and Plan (1) Dehydration Status: Acute (2) NSTEMI (non-ST elevated myocardial infarction) Status: Resolved (3) Nausea & vomiting Status: Resolved (4) Type 2 diabetes mellitus with hyperglycemia Status: Chronic (5) Abdominal pain Status: Acute (6) Gallbladder disease Status: Acute (7) Pneumonia Status: Acute - Assessment and Plan (Free Text) Assessment: 73 yo female admitted with sepsis and acute NSTEMI had cholecystitis but not a surgical candidate develoed VRE sepsis then pneumonia and septic shock remains intubated on multiple antibiotics and now amphotericin B was added surgery following - would consider repeat CT abd at some point to see if cholecystotomy needed no new positive cultures yet all lines have been changed and repeat blood cultures negative prognosis poor from the outset
[2018-09-16] MEDS: Albuterol-Ipratrop 3 mg / 0.5 (3 ml) UD INH SCH ×4 (01:01→19:38)
[2018-09-16] MEDS: Meropenem 1 GM in Sodium Chloride 0.9% 100 ML IVPB SCH ×3 (01:12→16:12)
[2018-09-16] MEDS: Proshield Plus GEL TOP SCH ×3 (01:14→16:13)
[2018-09-16] MEDS: Acetaminophen 650mg/20.3ml solution UD NG PRN ×3 (04:11→21:42)
[2018-09-16 04:49] LABS: ABG ALLEN TEST YES; ARTERIAL BLOOD GAS HCO3 27.9 mmol/L (21-28); ARTERIAL BLOOD GAS HEMOGLOBIN 9.8 g/dL (11.7-17.4); ARTERIAL BLOOD GAS O2 CAPACITY 13.7 mL/dL (16-24); ARTERIAL BLOOD GAS O2 CONTENT 13.8 ML/dL (15-23); ARTERIAL BLOOD GAS O2 SAT 100.5 % (95-98); ARTERIAL BLOOD GAS PCO2 38 mm/Hg (35-45); ARTERIAL BLOOD GAS PH 7.47 (7.35-7.45); ARTERIAL BLOOD GAS PO2 154 mm/Hg (80-100); ARTERIAL BLOOD GAS TCO2 28.9 mmol/L (22-28)
[2018-09-16 05:22] LABS: HEMOGLOBIN 9.4 g/dL (12.0-16.0); MEAN CELL VOLUME 89.2 fl (81.0-99.0); MEAN CORPUSCULAR HEMOGLOBIN 28.7 pg (27.0-31.0); MEAN CORPUSCULAR HGB CONC 32.2 g/dL (33.0-37.0); RBC 3.28 Mil/uL (3.80-5.20); RED CELL DISTRIBUTION WIDTH 23.3 % (11.5-14.5); WHITE BLOOD COUNT 24.8 K/uL (4.8-10.8)
[2018-09-16] MEDS: Insulin Lispro (humaLOG) 100 Units/ml Inj SC SCH ×4 (05:40→21:30)
[2018-09-16 05:56] LABS: CALCIUM 7.5 mg/dL (8.4-10.2)
[2018-09-16] MEDS: Insulin Detemir 100 Units/ml Inj SC SCH (08:49)
[2018-09-16] MEDS: Enoxaparin 40 mg Syringe SC SCH (08:50)
[2018-09-16] MEDS: Pantoprazole 40 mg Susp UD NG SCH (08:51)
[2018-09-16] MEDS: Linezolid 600 mg in D5W 300 ml 600 MG/300 ML BAG IVPB SCH ×2 (08:56→21:33)
--- NOTE | 2018-09-16 10:48 | CP.CCUPN ---
CCU Subjective - Physician Review Subjective (Free Text): Remains sedated on Ativan and Morphine, FiO2 remains at 50%, tolerated down to 40%, febrile again to 101.8F; Bilat pigtail catheter output has diminished: zero on R, approx. 30 ml from L last 24H. Other vitals and I/O's reviewed, SBP mostly 170s, HR 92; overall positive 1.4 L fluid balance. ROS: No other pertinent negs or positives on 10+ system review unobtainable on MV. PMSFH: DM II, HTN, Gastritis. All other Nursing and physician documentation reviewed to date; no new pertinent info noted relevant to current medical problems. EXAM- HEENT: no icterus, no gaze preference, Pupils 3 mm and reactive NECK: No JVD visible, supple, carotids equal upstroke bilat/no bruit CHEST: decreased BS at the bases, no wheezes audible HEART: regular, distant, S1S2, no rubs ABD: soft and nontender, no tympany, no guarding, no organomegaly, BS hypoactive EXT: trace LE edema, no calf tenderness or palpable cords, distal pulses intact and symmetrical. NEURO: no focal motor weakness SKIN: no rashes, warm and dry LABS: WBC= 24.8 HGB= 9.4 PLTs= 222K 7.47/ 38/154 Na= 145 K= 4.3 JJ=137 HCO3= 25 BUN/Cr= 79/1.2 BS= 411 CXR: - ETT OK above kevon, overall appears improved today; bilateral pigtail catheters in place, no PTX seen. ( my interp) IMPRESSION / MAJOR PROBLEMS NOW: 1. Acute Hypoxemic Resp Failure 2 non-resolving Pneumonia / Pneumonitis- unresponsive to multiple antibiotic / antifungal regimens and steroids. 2. Acute / Subacute NSTEMI 3. Coag neg Staph Bacteremia and VRE Bacteremia 4. s/p Azotemia / Dehydration, with Hypernatremia: Na levels slowly improving (recurrent free water deficit, has been on Diuretics) r/o [facility] ATN 5. Uncontrolled DM II PLAN: 1. FiO2 reduced to 40% for now. May still benefit from FOB/BAL for non- resolving pneumonia. Abx coverage changed again to Lisa/ Zyvox / AmphoB. 2. New ECHO results noted, any vegetations not definitively ruled out, other new findings noted; Covering Adult Education Professional has given clearance for Trach. 3. Ongoing free water, as per Nephro. Glycemic control still not optimal. 4. Vasculitis w/u negative so far. 5. Trach still pending, now family undecided. 6. Will try to keep even fluid balance, MR on ECHO is worse. Lasix prn. CHELSEY consideration as per Cardios discretion.
--- NOTE | 2018-09-16 12:52 | RAD ---
Date of service: 09/16/2018 HISTORY: R/O pulmonary edema COMPARISON: No prior. FINDINGS: LUNGS: 09/15/2018 extensive bilateral pulmonary opacity noted on prior examination has almost entirely resolved. Possible resolving pulmonary edema. PLEURA: No pleural effusion or pneumothorax. Bilateral pleural pigtail catheters seen unchanged from prior examination CARDIOVASCULAR: Atherosclerotic calcification noted in the aortic arch. Normal cardiac size. No congestive change. ET tube and NG tube unchanged. Left PICC catheter unchanged. OSSEOUS STRUCTURES: No significant abnormalities. VISUALIZED UPPER ABDOMEN: Normal. OTHER FINDINGS: None. IMPRESSION: Almost complete resolution of bilateral airspace opacity. Bilateral pleural pigtail catheters. No pneumothorax.
[2018-09-16] MEDS ORDERED: Insulin Detemir 100 Units/ml Inj SC ONE (13:59)
--- NOTE | 2018-09-16 14:35 | CP.PCM.PN ---
Subjective - Date & Time of Evaluation Date of Evaluation: 09/16/18 Time of Evaluation: 14:35 - Subjective Subjective: Remain intubated Vital signs noted Worsening leukocytosis Objective - Vital Signs/Intake and Output Vital Signs (last 24 hours): Temp Pulse Resp BP Pulse Ox 100.4 F H 97 H 24 186/76 H 100 09/16/18 12:00 09/16/18 12:15 09/16/18 12:00 09/16/18 12:15 09/16/18 12:00 Intake and Output: 09/16/18 09/16/18 06:59 18:59 Intake Total 1232 1150 Output Total 900 600 Balance 332 550 - Medications Medications: Current Medications Acetaminophen (Tylenol 650mg/20.3ml Solution Ud) 650 mg NG Q6 PRN PRN Reason: Temperature Last Admin: 09/16/18 04:11 Dose: 650 mg Acetaminophen (Tylenol 650mg/20.3ml Solution Ud) 650 mg PO Q6 PRN PRN Reason: Pain, Mild (1-3) Last Admin: 09/02/18 05:54 Dose: 650 mg Albuterol/Ipratropium (Duoneb 3 Mg/0.5 Mg (3 Ml) Ud) 3 ml INH RQ6 [facility] Last Admin: 09/16/18 13:22 Dose: 3 ml Aspirin (Aspirin Chewable) 81 mg NG DAILY [facility] Last Admin: 09/12/18 08:18 Dose: 81 mg Dimethicone (Proshield Plus Skin Protectant) 1 applic TOP Q8 [facility] Last Admin: 09/16/18 08:51 Dose: 1 applic Enoxaparin Sodium (Lovenox) 40 mg SC DAILY [facility]; Protocol Last Admin: 09/16/18 08:50 Dose: 40 mg Hydralazine HCl (Apresoline) 10 mg IV Q6 PRN PRN Reason: Systolic Blood Pressure Last Admin: 09/16/18 12:15 Dose: 10 mg Linezolid (Zyvox 600mg/300ml D5w) 600 mg in 300 mls @ 300 mls/hr IVPB Q12 [facility]; Protocol Last Admin: 09/16/18 08:56 Dose: 300 mls/hr Meropenem 1 gm/ Sodium (Chloride) 100 mls @ 100 mls/hr IVPB Q8 [facility]; Protocol Last Admin: 09/16/18 08:50 Dose: 100 mls/hr Amphotericin B 70 mg/ Dextrose 500 mls @ 83.333 mls/hr IVPB DAILY@1800 [facility]; P rotocol Last Admin: 09/15/18 17:30 Dose: 83.333 mls/hr Insulin Detemir (Levemir) 28 units SC DAILY [facility] Insulin Human Lispro (Humalog) 0 units SC Q6 [facility]; Protocol Last Admin: 09/16/18 10:13 Dose: 10 unit Lorazepam (Ativan) 0.5 mg IVP Q4 PRN PRN Reason: Agitation Last Admin: 09/16/18 12:20 Dose: 0.5 mg Metformin HCl (Glucophage) 1,000 mg PO BID [facility] Last Admin: 08/16/18 09:34 Dose: Not Given Methylprednisolone (Solu-Medrol) 60 mg IV Q6H [facility] Last Admin: 09/16/18 08:51 Dose: 60 mg Metoprolol Tartrate (Lopressor) 25 mg PO Q6 [facility] Last Admin: 09/16/18 10:13 Dose: 25 mg Morphine Sulfate (Morphine) 1 mg IVP Q4 PRN PRN Reason: Agitation Last Admin: 09/15/18 16:47 Dose: 1 mg Nystatin (Nystop Topical Powder) 1 applic TOP TID [facility] Last Admin: 09/16/18 12:17 Dose: 1 applic Pantoprazole Sodium (Protonix Susp) 40 mg NG DAILY [facility] Last Admin: 09/16/18 08:51 Dose: 40 mg Sucralfate (Carafate Oral Susp) 1 gm PO ACHS [facility] Last Admin: 08/18/18 22:07 Dose: 1 gm - Labs Labs: 09/16/18 04:20 09/16/18 04:20 PT 12.1 Seconds (9.8-13.1) 09/14/18 13:30 INR 1.1 09/14/18 13:30 APTT 24.8 Seconds (25.6-37.1) L 09/14/18 13:30 - Constitutional Appears: No Acute Distress - Eye Exam Eye Exam: Conjunctival injection - ENT Exam ENT Exam: Mucous Membranes Moist - Respiratory Exam Respiratory Exam: Rhonchi. absent: Chest Wall Tenderness - GI/Abdominal Exam GI & Abdominal Exam: Soft, Normal Bowel Sounds - Extremities Exam Extremities Exam: absent: Calf Tenderness - Back Exam Back Exam: absent: CVA tenderness (L), CVA tenderness (R) - Neurological Exam Neurological Exam: Altered - Psychiatric Exam Psychiatric exam: Flat Affect - Skin Skin Exam: absent: Cyanosis Assessment and Plan (1) [place] (acute kidney injury) Assessment & Plan: acute kidney injury related to multifactorial including sepsis serum creatinine around 1.1 Respiratory failure patient remain on respirator Sepsis [place] hypernatremia,145 Hyperchloremia 110 hypokalemia 4.3 corrected Bilateral pleural effusion plan respiratory management Antibiotics as per renal doses adjustment Status bilateral thoracocentesis on September 06, removal 800 cc from each side Status post bilateral pleural insertion of catheter for drainage 09/12 Serum sodium coming down and improving therefore cut down the free water every 6 hours insert every 4 hours Status: Acute (2) Acute gastroenteritis Status: Resolved (3) Anginal equivalent Status: Acute
--- NOTE | 2018-09-16 14:36 | CP.PCM.PN ---
Subjective - Date & Time of Evaluation Date of Evaluation: 09/16/18 Time of Evaluation: 12:20 - Subjective Subjective: F/U Respiratory Failure. Pt restless, requiring sedation, on restrain. Objective - Vital Signs/Intake and Output Vital Signs (last 24 hours): Temp Pulse Resp BP Pulse Ox 100.4 F H 97 H 24 186/76 H 100 09/16/18 12:00 09/16/18 12:15 09/16/18 12:00 09/16/18 12:15 09/16/18 12:00 Intake and Output: 09/16/18 09/16/18 06:59 18:59 Intake Total 1232 1150 Output Total 900 600 Balance 332 550 - Medications Medications: Current Medications Acetaminophen (Tylenol 650mg/20.3ml Solution Ud) 650 mg NG Q6 PRN PRN Reason: Temperature Last Admin: 09/16/18 04:11 Dose: 650 mg Acetaminophen (Tylenol 650mg/20.3ml Solution Ud) 650 mg PO Q6 PRN PRN Reason: Pain, Mild (1-3) Last Admin: 09/02/18 05:54 Dose: 650 mg Albuterol/Ipratropium (Duoneb 3 Mg/0.5 Mg (3 Ml) Ud) 3 ml INH RQ6 [facility] Last Admin: 09/16/18 13:22 Dose: 3 ml Aspirin (Aspirin Chewable) 81 mg NG DAILY [facility] Last Admin: 09/12/18 08:18 Dose: 81 mg Dimethicone (Proshield Plus Skin Protectant) 1 applic TOP Q8 [facility] Last Admin: 09/16/18 08:51 Dose: 1 applic Enoxaparin Sodium (Lovenox) 40 mg SC DAILY [facility]; Protocol Last Admin: 09/16/18 08:50 Dose: 40 mg Hydralazine HCl (Apresoline) 10 mg IV Q6 PRN PRN Reason: Systolic Blood Pressure Last Admin: 09/16/18 12:15 Dose: 10 mg Linezolid (Zyvox 600mg/300ml D5w) 600 mg in 300 mls @ 300 mls/hr IVPB Q12 [facility]; Protocol Last Admin: 09/16/18 08:56 Dose: 300 mls/hr Meropenem 1 gm/ Sodium (Chloride) 100 mls @ 100 mls/hr IVPB Q8 [facility]; Protocol Last Admin: 09/16/18 08:50 Dose: 100 mls/hr Amphotericin B 70 mg/ Dextrose 500 mls @ 83.333 mls/hr IVPB DAILY@1800 [facility]; Protocol Last Admin: 09/15/18 17:30 Dose: 83.333 mls/hr Insulin Detemir (Levemir) 28 units SC DAILY [facility] Insulin Human Lispro (Humalog) 0 units SC Q6 [facility]; Protocol Last Admin: 09/16/18 10:13 Dose: 10 unit Lorazepam (Ativan) 0.5 mg IVP Q4 PRN PRN Reason: Agitation Last Admin: 09/16/18 12:20 Dose: 0.5 mg Metformin HCl (Glucophage) 1,000 mg PO BID [facility] Last Admin: 08/16/18 09:34 Dose: Not Given Methylprednisolone (Solu-Medrol) 60 mg IV Q6H [facility] Last Admin: 09/16/18 08:51 Dose: 60 mg Metoprolol Tartrate (Lopressor) 25 mg PO Q6 [facility] Last Admin: 09/16/18 10:13 Dose: 25 mg Morphine Sulfate (Morphine) 1 mg IVP Q4 PRN PRN Reason: Agitation Last Admin: 09/15/18 16:47 Dose: 1 mg Nystatin (Nystop Topical Powder) 1 applic TOP TID [facility] Last Admin: 09/16/18 12:17 Dose: 1 applic Pantoprazole Sodium (Protonix Susp) 40 mg NG DAILY [facility] Last Admin: 09/16/18 08:51 Dose: 40 mg Sucralfate (Carafate Oral Susp) 1 gm PO ACHS [facility] Last Admin: 08/18/18 22:07 Dose: 1 gm - Labs Labs: 09/16/18 04:20 09/16/18 04:20 PT 12.1 Seconds (9.8-13.1) 09/14/18 13:30 INR 1.1 09/14/18 13:30 APTT 24.8 Seconds (25.6-37.1) L 09/14/18 13:30 - Constitutional Appears: No Acute Distress - Head Exam Head Exam: NORMAL INSPECTION - Eye Exam Eye Exam: PERRL - ENT Exam Additional comments: Intubated. OGT - Neck Exam Neck Exam: Normal Inspection - Respiratory Exam Respiratory Exam: Decreased Breath Sounds (at bases), Rhonchi - Cardiovascular Exam Cardiovascular Exam: REGULAR RHYTHM - GI/Abdominal Exam GI & Abdominal Exam: Soft, Normal Bowel Sounds - Extremities Exam Additional comments: Edema - Neurological Exam Additional comments: Intubated, restless. - Skin Skin Exam: Warm Assessment and Plan (1) Acute respiratory failure Status: Resolved (2) Cardiac arrest Status: Resolved (3) Aspiration pneumonia Status: Acute (4) Pleural effusion Status: Acute (5) Atelectasis of both lungs Status: Acute (6) NSTEMI (non-ST elevated myocardial infarction) Status: Acute (7) CHF (congestive heart failure) Status: Acute (8) DVT (deep venous thrombosis) Status: Acute (9) Severe anemia Status: Resolved - Assessment and Plan (Free Text) Plan: CXR: Almost completed resolution of PNA. Attempt to decrease FIO2 and attempt of weaning. Continue Amphotericin, Merren, Zyvox, Duoneb and rest of Tx. Critical care time: 31 min.
[2018-09-16] MEDS: WATER IVPB SCH (17:04)
[2018-09-16] MEDS: DEXTROSE 5% IVPB SCH (17:04)
[2018-09-16] MEDS: AMPHOTERICIN B IVPB SCH (17:04)
[2018-09-16 19:11] LABS: SQUAMOUS EPITHIAL < 1 /hpf (0-5); URINE AMORPHOUS SEDIMENT RARE /ul (<OCC); URINE BILIRUBIN NEGATIVE (NEGATIVE); URINE BLOOD MODERATE (NEGATIVE); URINE CLARITY CLOUDY (Clear); URINE COLOR YELLOW (YELLOW); URINE GLUCOSE (UA) >=500 mg/dL (NEGATIVE); URINE LEUKOCYTE ESTERASE TRACE Leu/uL (Negative); URINE PROTEIN 30 mg/dL (NEGATIVE); URINE UROBILINOGEN 0.2-1.0 mg/dL (0.2-1.0)
[2018-09-17] MEDS: Meropenem 1 GM in Sodium Chloride 0.9% 100 ML IVPB SCH ×3 (00:33→16:16)
[2018-09-17] MEDS: Proshield Plus GEL TOP SCH ×3 (00:34→16:17)
[2018-09-17] MEDS: Albuterol-Ipratrop 3 mg / 0.5 (3 ml) UD INH SCH ×4 (01:04→19:20)
[2018-09-17] MEDS: Insulin Lispro (humaLOG) 100 Units/ml Inj SC SCH ×4 (04:13→21:05)
[2018-09-17 04:49] LABS: ABG ALLEN TEST YES; ARTERIAL BLOOD GAS HCO3 26.7 mmol/L (21-28); ARTERIAL BLOOD GAS PCO2 34 mm/Hg (35-45); ARTERIAL BLOOD GAS PH 7.48 (7.35-7.45); ARTERIAL BLOOD GAS PO2 113 mm/Hg (80-100); ARTERIAL BLOOD GAS TCO2 26.3 mmol/L (22-28)
[2018-09-17 05:05] LABS: HEMOGLOBIN 9.2 g/dL (12.0-16.0); MEAN CELL VOLUME 88.3 fl (81.0-99.0); MEAN CORPUSCULAR HEMOGLOBIN 28.3 pg (27.0-31.0); RBC 3.26 Mil/uL (3.80-5.20); RED CELL DISTRIBUTION WIDTH 23.2 % (11.5-14.5); WHITE BLOOD COUNT 30.1 K/uL (4.8-10.8)
[2018-09-17 05:18] LABS: CALCIUM 7.6 mg/dL (8.4-10.2)
[2018-09-17] MEDS ORDERED: Potassium CL 10 MEQ/50 ML 50 ML IVPB SCH (06:00)
[2018-09-17] MEDS: Enoxaparin 40 mg Syringe SC SCH (08:23)
[2018-09-17] MEDS: Pantoprazole 40 mg Susp UD NG SCH (08:25)
[2018-09-17] MEDS ORDERED: Insulin Detemir 100 Units/ml Inj SC SCH (09:00)
[2018-09-17] MEDS: Linezolid 600 mg in D5W 300 ml 600 MG/300 ML BAG IVPB SCH ×2 (09:54→21:12)
[2018-09-17] MEDS ORDERED: Vancomycin 500 mg (Oral/Rectal USE) PO SCH (10:00)
[2018-09-17] MEDS: metroNIDAZOLE 500mg/100ml NS 100 ML IVPB SCH ×2 (10:42→17:32)
--- NOTE | 2018-09-17 12:04 | CP.CCUPN ---
CCU Subjective - Physician Review Subjective (Free Text): Patient seen and examined at bedside. Patient intabated not responsive not on sedation 09/17/18 11:59 Critical Care Time Spent (in minutes): 35 CCU Objective - Vital Signs / Intake & Output Vital Signs (Last 4 hours): Vital Signs Temp Pulse Resp BP Pulse Ox 09/17/18 10:00 84 14 147/63 100 09/17/18 09:54 83 131/53 L 09/17/18 08:00 102.0 F H 98 H 28 H 160/44 H 100 Intake and Output (Last 8hrs): Intake & Output 09/16/18 09/17/18 09/17/18 22:59 06:59 14:59 Intake Total 1249 600 800 Output Total 300 1150 Balance 949 -550 800 Intake: IV 166 Intake, Piggyback 383 100 400 Tube Feeding 200 200 Free Water Flush 500 500 200 Output: Chest Tube Drainage 0 150 Left Posterior Chest 0 70 Right Posterior Chest 80 Urine 300 1000 Urethral (Hughes) 300 1000 Other: # Bowel Movements 0 - Physical Exam Head: Positive for: Atraumatic, Normocephalic Pupils: Positive for: PERRL. Negative for: Sluggish, Non-Reactive, Pinpoint Conjunctiva: Positive for: Normal. Negative for: Injected, Icteric Mouth: Positive for: Moist Mucous Membranes Nose (External): Positive for: Atraumatic Neck: Positive for: Normal Range of Motion Respiratory/Chest: Positive for: Rhonchi Cardiovascular: Positive for: Regular Rate and Rhythm Abdomen: Positive for: Normal Bowel Sounds. Negative for: Tenderness, Distention, Peritoneal Signs Upper Extremity: Positive for: Normal Inspection, NORMAL PULSES, Capillary Refill < 2s. Negative for: Cyanosis, Edema Lower Extremity: Positive for: Normal Inspection. Negative for: Edema, CALF TENDERNESS Neurological: Positive for: Other (on ventilator, opens eyes to verbal stimuli). Negative for: GCS=15, CN II-XII Intact, Speech Normal, Motor Func Grossly Intact, Normal Sensory Function, Normal Cerebellar Funct, Norm Deep Tendon Reflexes, Gait Normal, Memory Normal, Normal 2Pt Descrimination Psychiatric: Negative for: Alert, Oriented x 3 - Medications Active Medications: Active Medications Generic Name Dose Route Start Last Admin Trade Name Freq PRN Reason Stop Dose Admin Acetaminophen 650 mg 08/24/18 10:29 09/16/18 21:42 Tylenol 650mg/20.3ml Solution Ud NG 650 mg Q6 PRN Administration Temperature Acetaminophen 650 mg 08/31/18 19:57 09/02/18 05:54 Tylenol 650mg/20.3ml Solution Ud PO 650 mg Q6 PRN Administration Pain, Mild (1-3) Albuterol/Ipratropium 3 ml 09/08/18 14:00 09/17/18 08:33 Duoneb 3 Mg/0.5 Mg (3 Ml) Ud INH 3 ml RQ6 CARMEN Administration Aspirin 81 mg 09/06/18 09:00 09/12/18 08:18 Aspirin Chewable NG 81 mg DAILY CARMEN Administration Dimethicone 1 applic 09/05/18 17:00 09/17/18 08:25 Proshield Plus Skin Protectant TOP 1 applic Q8 CARMEN Administration Enoxaparin Sodium 40 mg 09/12/18 18:00 09/17/18 08:23 Lovenox SC 40 mg DAILY CARMEN Administration Protocol Hydralazine HCl 10 mg 09/07/18 18:38 09/16/18 12:15 Apresoline IV 10 mg Q6 PRN Administration Systolic Blood Pressure Linezolid 600 mg in 300 mls @ 300 mls/hr 09/14/18 21:00 09/17/18 09:54 Zyvox 600mg/300ml D5w IVPB 300 mls/hr Q12 CAMREN Administration Protocol Meropenem 1 gm/ Sodium 100 mls @ 100 mls/hr 09/14/18 17:00 09/17/18 08:23 Chloride IVPB 100 mls/hr Q8 CARMEN Administration Protocol Amphotericin B 70 mg/ Dextrose 500 mls @ 83.333 mls/hr 09/15/18 18:00 09/16/18 17:04 IVPB 83.333 mls/hr DAILY@1800 CARMEN Administration Protocol Metronidazole 100 mls @ 100 mls/hr 09/17/18 09:00 09/17/18 10:42 Flagyl 500mg/100ml Ns IVPB 100 mls/hr Q8 CARMEN Administration Protocol Insulin Detemir 28 units 09/17/18 09:00 09/17/18 08:22 Levemir SC 28 units DAILY CARMEN Administration Insulin Human Lispro 0 units 09/12/18 10:00 12/22/18 04:13 Humalog SC 12 unit Q6 CARMEN Administration Protocol Lorazepam 0.5 mg 09/15/18 11:46 09/17/18 04:08 Ativan IVP 0.5 mg Q4 PRN Administration Agitation Methylprednisolone 60 mg 09/08/18 15:15 09/17/18 08:25 Solu-Medrol IV 60 mg Q6H CARMEN Administration Metoprolol Tartrate 25 mg 09/09/18 22:00 09/17/18 09:54 Lopressor PO 25 mg Q6 CARMEN Administration Nystatin 1 applic 09/05/18 17:00 09/17/18 08:24 Nystop Topical Powder TOP 1 applic TID CARMEN Administration Pantoprazole Sodium 40 mg 09/01/18 14:00 09/17/18 08:25 Protonix Susp NG 40 mg DAILY CARMEN Administration Sucralfate 1 gm 08/14/18 20:30 08/18/18 22:07 Carafate Oral Susp PO 1 gm ACHS CARMEN Administration - Patient Studies Lab Studies: Microbiology Studies 09/12/18 08:00 Blood Culture - Final Blood NO GROWTH AFTER 5 DAYS Gram Stain - Final TEST NOT PERFORMED 09/12/18 06:20 Blood Culture - Final Blood NO GROWTH AFTER 5 DAYS Gram Stain - Final TEST NOT PERFORMED 09/14/18 17:11 Gram Stain - Final Sputum Sputum Culture - Final NORMAL ORAL SUKHI Lab Studies 09/17/18 09/17/18 09/17/18 Range/Units 11:17 04:46 04:45 WBC (4.8-10.8) K/uL RBC (3.80-5.20) Mil/uL Hgb (12.0-16.0) g/dL Hct (34.0-47.0) % MCV (81.0-99.0) fl MCH (27.0-31.0) pg MCHC (33.0-37.0) g/dL RDW (11.5-14.5) % Plt Count (130-400) K/uL pCO2 34 L (35-45) mm/Hg pO2 113 H (80-100) mm/Hg HCO3 26.7 (21-28) mmol/L ABG pH 7.48 H (7.35-7.45) ABG Total CO2 26.3 (22-28) mmol/L ABG O2 Saturation 100.0 H (95-98) % ABG Base Excess 2.2 (-2.0-3.0) mmol/L Masoud Test Yes ABG Potassium 3.7 (3.6-5.2) mmol/L A-a O2 Difference 94.0 mm/Hg Glucose 427 H* (65-105) mg/dL Lactate 3.9 H (0.7-2.1) mmol/L Vent Mode A/c Mechanical Rate 14 FiO2 35.0 % Tidal Volume 400 PEEP 8 Crit Value Called To Alan gaming Crit Value Called By Logan Crit Value Read Back Y Blood Gas Notified Time 449 Sodium 145.0 147 (132-148) mmol/l Potassium 4.0 (3.6-5.0) MMOL/L Chloride 113.0 H 110 H (98-107) mmol/L Carbon Dioxide 26 (22-30) mmol/L Anion Gap 15 (10-20) BUN 87 H (7-17) mg/dl Creatinine 1.6 H (0.7-1.2) mg/dl Est GFR ( Amer) 38 Est GFR (Non-Af Amer) 31 POC Glucose (mg/dL) 386 H (65-110) mg/dL Random Glucose 384 H (65-105) mg/dL Calcium 7.6 L (8.4-10.2) mg/dL RBC Magnesium (4.0-6.4) mg/dL Arterial Blood Potassium 3.7 (3.6-5.2) mmol/L Urine Color (YELLOW) Urine Clarity (Clear) Urine pH (5.0-8.0) Ur Specific [place] (1.003-1.030) Urine Protein (NEGATIVE) mg/dL Urine Glucose (UA) (NEGATIVE) mg/dL Urine Ketones (NEGATIVE) mg/dL Urine Blood (NEGATIVE) Urine Nitrate (NEGATIVE) Urine Bilirubin (NEGATIVE) Urine Urobilinogen (0.2-1.0) mg/dL Ur Leukocyte Esterase (Negative) Ct/uL Urine RBC (Auto) (0-3) /hpf Ur Squamous Epith Cells (0-5) /hpf Amorphous Sediment (<OCC) /ul Hyaline Casts (0-2) /hpf Rheumatoid Factor IgG (<=6) U Rheumatoid Factor IgA (<=6) U Rheumatoid Factor IgM (<=6) U Beta-(1,3)-D-Glucan (<60) pg/mL B-(1,3)-D-Glucan Intrp 09/17/18 09/17/18 09/16/18 Range/Units 04:45 03:56 21:23 WBC 30.1 H (4.8-10.8) K/uL RBC 3.26 L (3.80-5.20) Mil/uL Hgb 9.2 L (12.0-16.0) g/dL Hct 28.8 L (34.0-47.0) % MCV 88.3 (81.0-99.0) fl MCH 28.3 (27.0-31.0) pg MCHC 32.0 L (33.0-37.0) g/dL RDW 23.2 H (11.5-14.5) % Plt Count 171 (130-400) K/uL pCO2 (35-45) mm/Hg pO2 (80-100) mm/Hg HCO3 (21-28) mmol/L ABG pH (7.35-7.45) ABG Total CO2 (22-28) mmol/L ABG O2 Saturation (95-98) % ABG Base Excess (-2.0-3.0) mmol/L Masoud Test ABG Potassium (3.6-5.2) mmol/L A-a O2 Difference mm/Hg Glucose (65-105) mg/dL Lactate (0.7-2.1) mmol/L Vent Mode Mechanical Rate FiO2 % Tidal Volume PEEP Crit Value Called To Crit Value Called By Crit Value Read Back Blood Gas Notified Time Sodium (132-148) mmol/l Potassium (3.6-5.0) MMOL/L Chloride (98-107) mmol/L Carbon Dioxide (22-30) mmol/L Anion Gap (10-20) BUN (7-17) mg/dl Creatinine (0.7-1.2) mg/dl Est GFR ( Amer) Est GFR (Non-Af Amer) POC Glucose (mg/dL) 407 H* 369 H (65-110) mg/dL Random Glucose (65-105) mg/dL Calcium (8.4-10.2) mg/dL RBC Magnesium (4.0-6.4) mg/dL Arterial Blood Potassium (3.6-5.2) mmol/L Urine Color (YELLOW) Urine Clarity (Clear) Urine pH (5.0-8.0) Ur Specific [place] (1.003-1.030) Urine Protein (NEGATIVE) mg/dL Urine Glucose (UA) (NEGATIVE) mg/dL Urine Ketones (NEGATIVE) mg/dL Urine Blood (NEGATIVE) Urine Nitrate (NEGATIVE) Urine Bilirubin (NEGATIVE) Urine Urobilinogen (0.2-1.0) mg/dL Ur Leukocyte Esterase (Negative) Ct/uL Urine RBC (Auto) (0-3) /hpf Ur Squamous Epith Cells (0-5) /hpf Amorphous Sediment (<OCC) /ul Hyaline Casts (0-2) /hpf Rheumatoid Factor IgG (<=6) U Rheumatoid Factor IgA (<=6) U Rheumatoid Factor IgM (<=6) U Beta-(1,3)-D-Glucan (<60) pg/mL B-(1,3)-D-Glucan Intrp 09/16/18 09/16/18 09/14/18 Range/Units 18:42 16:26 16:46 WBC (4.8-10.8) K/uL RBC (3.80-5.20) Mil/uL Hgb (12.0-16.0) g/dL Hct (34.0-47.0) % MCV (81.0-99.0) fl MCH (27.0-31.0) pg MCHC (33.0-37.0) g/dL RDW (11.5-14.5) % Plt Count (130-400) K/uL pCO2 (35-45) mm/Hg pO2 (80-100) mm/Hg HCO3 (21-28) mmol/L ABG pH (7.35-7.45) ABG Total CO2 (22-28) mmol/L ABG O2 Saturation (95-98) % ABG Base Excess (-2.0-3.0) mmol/L Masoud Test ABG Potassium (3.6-5.2) mmol/L A-a O2 Difference mm/Hg Glucose (65-105) mg/dL Lactate (0.7-2.1) mmol/L Vent Mode Mechanical Rate FiO2 % Tidal Volume PEEP Crit Value Called To Crit Value Called By Crit Value Read Back Blood Gas Notified Time Sodium (132-148) mmol/l Potassium (3.6-5.0) MMOL/L Chloride (98-107) mmol/L Carbon Dioxide (22-30) mmol/L Anion Gap (10-20) BUN (7-17) mg/dl Creatinine (0.7-1.2) mg/dl Est GFR ( Amer) Est GFR (Non-Af Amer) POC Glucose (mg/dL) 379 H (65-110) mg/dL Random Glucose (65-105) mg/dL Calcium (8.4-10.2) mg/dL RBC Magnesium (4.0-6.4) mg/dL Arterial Blood Potassium (3.6-5.2) mmol/L Urine Color Yellow (YELLOW) Urine Clarity Cloudy (Clear) Urine pH 5.0 (5.0-8.0) Ur Specific [place] 1.014 (1.003-1.030) Urine Protein 30 (NEGATIVE) mg/dL Urine Glucose (UA) >=500 (NEGATIVE) mg/dL Urine Ketones Negative (NEGATIVE) mg/dL Urine Blood Moderate (NEGATIVE) Urine Nitrate Negative (NEGATIVE) Urine Bilirubin Negative (NEGATIVE) Urine Urobilinogen 0.2-1.0 (0.2-1.0) mg/dL Ur Leukocyte Esterase Trace (Negative) Ct/uL Urine RBC (Auto) 18 H (0-3) /hpf Ur Squamous Epith Cells < 1 (0-5) /hpf Amorphous Sediment Rare H (<OCC) /ul Hyaline Casts 11-20 H (0-2) /hpf Rheumatoid Factor IgG (<=6) U Rheumatoid Factor IgA (<=6) U Rheumatoid Factor IgM (<=6) U Beta-(1,3)-D-Glucan 75 H (<60) pg/mL B-(1,3)-D-Glucan Intrp Indeterminate H 09/14/18 09/13/18 09/09/18 Range/Units 09:43 09:08 04:25 WBC (4.8-10.8) K/uL RBC (3.80-5.20) Mil/uL Hgb (12.0-16.0) g/dL Hct (34.0-47.0) % MCV (81.0-99.0) fl MCH (27.0-31.0) pg MCHC (33.0-37.0) g/dL RDW (11.5-14.5) % Plt Count (130-400) K/uL pCO2 (35-45) mm/Hg pO2 (80-100) mm/Hg HCO3 (21-28) mmol/L ABG pH (7.35-7.45) ABG Total CO2 (22-28) mmol/L ABG O2 Saturation (95-98) % ABG Base Excess (-2.0-3.0) mmol/L Masoud Test ABG Potassium (3.6-5.2) mmol/L A-a O2 Difference mm/Hg Glucose (65-105) mg/dL Lactate (0.7-2.1) mmol/L Vent Mode Mechanical Rate FiO2 % Tidal Volume PEEP Crit Value Called To Crit Value Called By Crit Value Read Back Blood Gas Notified Time Sodium (132-148) mmol/l Potassium (3.6-5.0) MMOL/L Chloride (98-107) mmol/L Carbon Dioxide (22-30) mmol/L Anion Gap (10-20) BUN (7-17) mg/dl Creatinine (0.7-1.2) mg/dl Est GFR ( Amer) Est GFR (Non-Af Amer) POC Glucose (mg/dL) (65-110) mg/dL Random Glucose (65-105) mg/dL Calcium (8.4-10.2) mg/dL RBC Magnesium 6.8 H 6.3 (4.0-6.4) mg/dL Arterial Blood Potassium (3.6-5.2) mmol/L Urine Color (YELLOW) Urine Clarity (Clear) Urine pH (5.0-8.0) Ur Specific [place] (1.003-1.030) Urine Protein (NEGATIVE) mg/dL Urine Glucose (UA) (NEGATIVE) mg/dL Urine Ketones (NEGATIVE) mg/dL Urine Blood (NEGATIVE) Urine Nitrate (NEGATIVE) Urine Bilirubin (NEGATIVE) Urine Urobilinogen (0.2-1.0) mg/dL Ur Leukocyte Esterase (Negative) Ct/uL Urine RBC (Auto) (0-3) /hpf Ur Squamous Epith Cells (0-5) /hpf Amorphous Sediment (<OCC) /ul Hyaline Casts (0-2) /hpf Rheumatoid Factor IgG <5 (<=6) U Rheumatoid Factor IgA <5 (<=6) U Rheumatoid Factor IgM <5 (<=6) U Beta-(1,3)-D-Glucan (<60) pg/mL B-(1,3)-D-Glucan [facility] Laboratory Results - last 24 hr 09/09/18 09/13/18 09/14/18 04:25 09:08 09:43 WBC RBC Hgb Hct MCV MCH MCHC RDW Plt Count pCO2 pO2 HCO3 ABG pH ABG Total CO2 ABG O2 Saturation ABG Base Excess Masoud Test ABG Potassium A-a O2 Difference Glucose Lactate Vent Mode Mechanical Rate FiO2 Tidal Volume PEEP Crit Value Called To Crit Value Called By Crit Value Read Back Blood Gas Notified Time Sodium Potassium Chloride Carbon Dioxide Anion Gap BUN Creatinine Est GFR ( Amer) Est GFR (Non-Af Amer) POC Glucose (mg/dL) Random Glucose Calcium RBC Magnesium 6.3 6.8 H Arterial Blood Potassium Urine Color Urine Clarity Urine pH Ur Specific [place] Urine Protein Urine Glucose (UA) Urine Ketones Urine Blood Urine Nitrate Urine Bilirubin Urine Urobilinogen Ur Leukocyte Esterase Urine RBC (Auto) Ur Squamous Epith Cells Amorphous Sediment Hyaline Casts Rheumatoid Factor IgG <5 Rheumatoid Factor IgA <5 Rheumatoid Factor IgM <5 Beta-(1,3)-D-Glucan B-(1,3)-D-Glucan Intrp 09/14/18 09/16/18 09/16/18 16:46 16:26 18:42 WBC RBC Hgb Hct MCV MCH MCHC RDW Plt Count pCO2 pO2 HCO3 ABG pH ABG Total CO2 ABG O2 Saturation ABG Base Excess Masoud Test ABG Potassium A-a O2 Difference Glucose Lactate Vent Mode Mechanical Rate FiO2 Tidal Volume PEEP Crit Value Called To Crit Value Called By Crit Value Read Back Blood Gas Notified Time Sodium Potassium Chloride Carbon Dioxide Anion Gap BUN Creatinine Est GFR ( Amer) Est GFR (Non-Af Amer) POC Glucose (mg/dL) 379 H Random Glucose Calcium RBC Magnesium Arterial Blood Potassium Urine Color Yellow Urine Clarity Cloudy Urine pH 5.0 Ur Specific [place] 1.014 Urine Protein 30 Urine Glucose (UA) >=500 Urine Ketones Negative Urine Blood Moderate Urine Nitrate Negative Urine Bilirubin Negative Urine Urobilinogen 0.2-1.0 Ur Leukocyte Esterase Trace Urine RBC (Auto) 18 H Ur Squamous Epith Cells < 1 Amorphous Sediment Rare H Hyaline Casts 11-20 H Rheumatoid Factor IgG Rheumatoid Factor IgA Rheumatoid Factor IgM Beta-(1,3)-D-Glucan 75 H B-(1,3)-D-Glucan Intrp Indeterminate H 09/16/18 09/17/18 09/17/18 21:23 03:56 04:45 WBC 30.1 H RBC 3.26 L Hgb 9.2 L Hct 28.8 L MCV 88.3 MCH 28.3 MCHC 32.0 L RDW 23.2 H Plt Count 171 pCO2 pO2 HCO3 ABG pH ABG Total CO2 ABG O2 Saturation ABG Base Excess Masoud Test ABG Potassium A-a O2 Difference Glucose Lactate Vent Mode Mechanical Rate FiO2 Tidal Volume PEEP Crit Value Called To Crit Value Called By Crit Value Read Back Blood Gas Notified Time Sodium Potassium Chloride Carbon Dioxide Anion Gap BUN Creatinine Est GFR ( Amer) Est GFR (Non-Af Amer) POC Glucose (mg/dL) 369 H 407 H* Random Glucose Calcium RBC Magnesium Arterial Blood Potassium Urine Color Urine Clarity Urine pH Ur Specific [place] Urine Protein Urine Glucose (UA) Urine Ketones Urine Blood Urine Nitrate Urine Bilirubin Urine Urobilinogen Ur Leukocyte Esterase Urine RBC (Auto) Ur Squamous Epith Cells Amorphous Sediment Hyaline Casts Rheumatoid Factor IgG Rheumatoid Factor IgA Rheumatoid Factor IgM Beta-(1,3)-D-Glucan B-(1,3)-D-Glucan Intrp 09/17/18 09/17/18 09/17/18 04:45 04:46 11:17 WBC RBC Hgb Hct MCV MCH MCHC RDW Plt Count pCO2 34 L pO2 113 H HCO3 26.7 ABG pH 7.48 H ABG Total CO2 26.3 ABG O2 Saturation 100.0 H ABG Base Excess 2.2 Masuod Test Yes ABG Potassium 3.7 A-a O2 Difference 94.0 Glucose 427 H* Lactate 3.9 H Vent Mode A/c Mechanical Rate 14 FiO2 35.0 Tidal Volume 400 PEEP 8 Crit Value Called To Alan gaming Crit Value Called By Logan Crit Value Read Back Y Blood Gas Notified Time 449 Sodium 147 145.0 Potassium 4.0 Chloride 110 H 113.0 H Carbon Dioxide 26 Anion Gap 15 BUN 87 H Creatinine 1.6 H Est GFR ( Amer) 38 Est GFR (Non-Af Amer) 31 POC Glucose (mg/dL) 386 H Random Glucose 384 H Calcium 7.6 L RBC Magnesium Arterial Blood Potassium 3.7 Urine Color Urine Clarity Urine pH Ur Specific [place] Urine Protein Urine Glucose (UA) Urine Ketones Urine Blood Urine Nitrate Urine Bilirubin Urine Urobilinogen Ur Leukocyte Esterase Urine RBC (Auto) Ur Squamous Epith Cells Amorphous Sediment Hyaline Casts Rheumatoid Factor IgG Rheumatoid Factor IgA Rheumatoid Factor IgM Beta-(1,3)-D-Glucan B-(1,3)-D-Glucan Intrp Radiology Impressions: Radiology Impressions Chest X-Ray 09/16/18 04:00 IMPRESSION: Almost complete resolution of bilateral airspace opacity. Bilateral pleural pigtail catheters. No pneumothorax. Fingerstick Blood Sugar Results: 407 Review of Systems - Review of Systems Systems not reviewed;Unavailable: Altered Mental Status Assessment/Plan - Assessment and Plan (Free Text) Assessment: Hypoxic respiratory faiure: CXR reveals copd, continue bronchodilators and taper off solumedrol (high BGM and high WBC), continue ventilation to keep sp2o >92 and pH b/w 7.35-7.45 -Sepsis: not in shock: continuer abx as per ID -b/l pig tail: mangement as per surgery d/c as minimal output -hughes: 2nd retention as per nursing, consider d/c -frequent fevers with broad spectrum abx and high WBC, heath culture, ceck C. diff -high BGM currently on high levamir 28 units (increased from yesterday 14), continue high dose ISS, lispro, (titrate off solumedrol) -continue dvt/pud ppx -possible central fever (diagnosis of exclusion) -aAnoxic brain injury: not repsponding to verbal stimuli or following commands, consider eraly trach/peg -contineu dvt/pud ppx -prognosis poor 2nd age adn anoxic brain injury + sepsis cc time 35 minutes -continue to monitor d/w ICU team - Date & Time Date: 09/17/18 Time: 12:04
[2018-09-17] MEDS ORDERED: MethylPREDNISolone 40 mg Vial IV SCH (12:15)
[2018-09-17] MEDS ORDERED: Sodium Chloride 0.9% 1,000 ML IV SCH (12:45)
--- NOTE | 2018-09-17 13:05 | CP.PCM.PN ---
Subjective - Date & Time of Evaluation Date of Evaluation: 09/17/18 Time of Evaluation: 13:03 - Subjective Subjective: Nephrology Consultation Note Assessment: critical acute kidney injury related to multifactorial including sepsis Respiratory failure Sepsis PR hypernatremia fever leukocytosis hypokalemia Plan no acute need for dialysis continue free water supplements management of infection antibiotics as per renal dose Respiratory management Kidney function fluctuating creatinine supplement lytes as needed maintain hemodynamics stable Dose meds/antibiotics for improved GFR. Glycemic control Further work up for as per primary team Thanks for allowing me to participate in care of your patient. Will follow patient with you. Please call if any Qs. had d/w team Dr Fabian Gallagher Office: [phone] Subjective: Noted events overnight. Patients intubated. unable to obtain ROS Physical Examination: General Appearance: orally intubated and non communicating Vitals reviewed and noted as below Head; Atraumatic, normocephalic Neck; supple no lymphadenopathy, no thyromegaly or bruit Lungs: Normal respiratory rate/effort. Breath sounds bilateral reduced at bases Heart: Normal rate. s1s2 normal. No rub or gallop. Extremities: no edema. No varicose veins Neurological: Patient is non communicating Skin: Warm and dry. Normal turgor. No rash. Palpitation: Normal elasticity for age Abdomen: Abdomen is soft. Bowel sounds +. There is no abdominal tenderness, no guarding/rigidity no organomegaly Psych: unable MSK: no joint tenderness or swelling. Digits and nails normal, no deformity : kidney or bladder not palpable Labs/imaging reviewed. Past medical history, past surgical history, family history, social history, allergy reviewed and noted as below Family hx: no hx of CKD. Rest non-contributory Objective - Vital Signs/Intake and Output Vital Signs (last 24 hours): Temp Pulse Resp BP Pulse Ox 99.7 F H 87 12 155/50 H 100 09/17/18 12:00 09/17/18 12:00 09/17/18 12:00 09/17/18 12:00 09/17/18 12:00 Intake and Output: 09/17/18 09/17/18 06:59 18:59 Intake Total 1399 800 Output Total 1150 Balance 249 800 - Medications Medications: Current Medications Acetaminophen (Tylenol 650mg/20.3ml Solution Ud) 650 mg NG Q6 PRN PRN Reason: Temperature Last Admin: 09/16/18 21:42 Dose: 650 mg Acetaminophen (Tylenol 650mg/20.3ml Solution Ud) 650 mg PO Q6 PRN PRN Reason: Pain, Mild (1-3) Last Admin: 09/02/18 05:54 Dose: 650 mg Albuterol/Ipratropium (Duoneb 3 Mg/0.5 Mg (3 Ml) Ud) 3 ml INH RQ6 CARMEN Last Admin: 09/17/18 08:33 Dose: 3 ml Aspirin (Aspirin Chewable) 81 mg NG DAILY CARMEN Last Admin: 09/12/18 08:18 Dose: 81 mg Dimethicone (Proshield Plus Skin Protectant) 1 applic TOP Q8 CARMEN Last Admin: 09/17/18 08:25 Dose: 1 applic Enoxaparin Sodium (Lovenox) 40 mg SC DAILY CARMEN; Protocol Last Admin: 09/17/18 08:23 Dose: 40 mg Hydralazine HCl (Apresoline) 10 mg IV Q6 PRN PRN Reason: Systolic Blood Pressure Last Admin: 09/16/18 12:15 Dose: 10 mg Linezolid (Zyvox 600mg/300ml D5w) 600 mg in 300 mls @ 300 mls/hr IVPB Q12 CARMEN; Protocol Last Admin: 09/17/18 09:54 Dose: 300 mls/hr Meropenem 1 gm/ Sodium (Chloride) 100 mls @ 100 mls/hr IVPB Q8 CARMEN; Protocol Last Admin: 09/17/18 08:23 Dose: 100 mls/hr Amphotericin B 70 mg/ Dextrose 500 mls @ 83.333 mls/hr IVPB DAILY@1800 CARMEN; Protocol Last Admin: 09/16/18 17:04 Dose: 83.333 mls/hr Metronidazole (Flagyl 500mg/100ml Ns) 100 mls @ 100 mls/hr IVPB Q8 CARMEN; Protocol Last Admin: 09/17/18 10:42 Dose: 100 mls/hr Sodium Chloride (Sodium Chloride 0.9%) 1,000 mls @ 999 mls/hr IV .Q1H1M CARMEN Stop: 09/17/18 13:45 Last Admin: 09/17/18 12:49 Dose: 999 mls/hr Insulin Detemir (Levemir) 28 units SC DAILY CARMEN Last Admin: 09/17/18 08:22 Dose: 28 units Insulin Human Lispro (Humalog) 0 units SC Q6 [facility]; Protocol Last Admin: 09/17/18 12:00 Dose: 10 unit Lorazepam (Ativan) 0.5 mg IVP Q4 PRN PRN Reason: Agitation Last Admin: 09/17/18 04:08 Dose: 0.5 mg Methylprednisolone (Solu-Medrol) 20 mg IV Q8H [facility] Metoprolol Tartrate (Lopressor) 25 mg PO Q6 [facility] Last Admin: 09/17/18 09:54 Dose: 25 mg Nystatin (Nystop Topical Powder) 1 applic TOP TID [facility] Last Admin: 09/17/18 12:48 Dose: 1 applic Pantoprazole Sodium (Protonix Susp) 40 mg NG DAILY [facility] Last Admin: 09/17/18 08:25 Dose: 40 mg Sucralfate (Carafate Oral Susp) 1 gm PO ACHS [facility] Last Admin: 08/18/18 22:07 Dose: 1 gm - Labs Labs: 09/17/18 04:45 09/17/18 04:45 PT 12.1 Seconds (9.8-13.1) 09/14/18 13:30 INR 1.1 09/14/18 13:30 APTT 24.8 Seconds (25.6-37.1) L 09/14/18 13:30
[2018-09-17] MEDS: MethylPREDNISolone 40 mg Vial IV SCH (16:18)
[2018-09-17] MEDS: WATER IVPB SCH (18:35)
[2018-09-17] MEDS: AMPHOTERICIN B IVPB SCH (18:35)
[2018-09-17] MEDS: DEXTROSE 5% IVPB SCH (18:35)
[2018-09-17] MEDS: Insulin Detemir 100 Units/ml Inj SC SCH (21:04)
--- NOTE | 2018-09-17 23:49 | CP.PCM.PN ---
Subjective - Date & Time of Evaluation Date of Evaluation: 09/15/18 Time of Evaluation: 15:00 - Subjective Subjective: Seen and examined at the bed side. Intubated on MV. Ativan and Morphine PRN. Objective - Vital Signs/Intake and Output Vital Signs (last 24 hours): Temp Pulse Resp BP Pulse Ox 97.2 F L 94 H 27 H 142/62 100 09/17/18 15:45 09/17/18 21:11 09/17/18 18:00 09/17/18 21:11 09/17/18 18:00 Intake and Output: 09/17/18 09/18/18 18:59 06:59 Intake Total 2900 83 Output Total 2020 Balance 880 83 - Medications Medications: Current Medications Acetaminophen (Tylenol 650mg/20.3ml Solution Ud) 650 mg NG Q6 PRN PRN Reason: Temperature Last Admin: 09/16/18 21:42 Dose: 650 mg Acetaminophen (Tylenol 650mg/20.3ml Solution Ud) 650 mg PO Q6 PRN PRN Reason: Pain, Mild (1-3) Last Admin: 09/02/18 05:54 Dose: 650 mg Albuterol/Ipratropium (Duoneb 3 Mg/0.5 Mg (3 Ml) Ud) 3 ml INH RQ6 [facility] Last Admin: 09/17/18 13:30 Dose: 3 ml Aspirin (Aspirin Chewable) 81 mg NG DAILY [facility] Last Admin: 09/12/18 08:18 Dose: 81 mg Dimethicone (Proshield Plus Skin Protectant) 1 applic TOP Q8 [facility] Last Admin: 09/17/18 16:17 Dose: 1 applic Enoxaparin Sodium (Lovenox) 40 mg SC DAILY [facility]; Protocol Last Admin: 09/17/18 08:23 Dose: 40 mg Hydralazine HCl (Apresoline) 10 mg IV Q6 PRN PRN Reason: Systolic Blood Pressure Last Admin: 09/16/18 12:15 Dose: 10 mg Meropenem 1 gm/ Sodium (Chloride) 100 mls @ 100 mls/hr IVPB Q8 [facility]; Protocol Last Admin: 09/17/18 16:16 Dose: 100 mls/hr Amphotericin B 70 mg/ Dextrose 500 mls @ 83.333 mls/hr IVPB DAILY@1800 [facility]; Protocol Last Admin: 09/17/18 18:35 Dose: 83.333 mls/hr Metronidazole (Flagyl 500mg/100ml Ns) 100 mls @ 100 mls/hr IVPB Q8 [facility]; Protocol Last Admin: 09/17/18 17:32 Dose: 100 mls/hr Insulin Detemir (Levemir) 20 units SC Q12 [facility] Last Admin: 09/17/18 21:04 Dose: 20 units Insulin Human Lispro (Humalog) 0 units SC Q6 [facility]; Protocol Last Admin: 09/17/18 21:05 Dose: 6 unit Lorazepam (Ativan) 0.5 mg IVP Q4 PRN PRN Reason: Agitation Last Admin: 09/17/18 21:13 Dose: 0.5 mg Methylprednisolone (Solu-Medrol) 20 mg IV 0100,0900,1700 [facility] Last Admin: 09/17/18 16:18 Dose: 20 mg Metoprolol Tartrate (Lopressor) 25 mg PO Q6 [facility] Last Admin: 09/17/18 21:11 Dose: 25 mg Nystatin (Nystop Topical Powder) 1 applic TOP TID [facility] Last Admin: 09/17/18 16:16 Dose: 1 applic Pantoprazole Sodium (Protonix Susp) 40 mg NG DAILY [facility] Last Admin: 09/17/18 08:25 Dose: 40 mg Sucralfate (Carafate Oral Susp) 1 gm PO ACHS [facility] Last Admin: 08/18/18 22:07 Dose: 1 gm - Labs Labs: 09/17/18 04:45 09/17/18 04:45 PT 12.1 Seconds (9.8-13.1) 09/14/18 13:30 INR 1.1 09/14/18 13:30 APTT 24.8 Seconds (25.6-37.1) L 09/14/18 13:30 Assessment and Plan (1) Acute respiratory failure Status: Resolved (2) Hypertensive urgency Status: Resolved (3) DVT (deep venous thrombosis) Status: Acute (4) Cardiac arrest Status: Acute (5) AURORA (acute kidney injury) Status: Acute (6) NSTEMI (non-ST elevated myocardial infarction) Status: Acute (7) Type 2 diabetes mellitus with hyperglycemia Status: Chronic (8) Acute gastroenteritis Status: Resolved (9) Abdominal pain in female Status: Resolved (10) Gallbladder disease Status: Acute (11) Severe anemia Status: Resolved (12) Aspiration pneumonia Status: Acute - Assessment and Plan (Free Text) Plan: Continue Current Care
--- NOTE | 2018-09-17 23:49 | CP.PCM.PN ---
Subjective - Date & Time of Evaluation Date of Evaluation: 09/14/18 Time of Evaluation: 06:45 - Subjective Subjective: Seen and examined at the bed side. Remains intubated and sedated. Continue to spike fever. Objective - Vital Signs/Intake and Output Vital Signs (last 24 hours): Temp Pulse Resp BP Pulse Ox 97.2 F L 94 H 27 H 142/62 100 09/17/18 15:45 09/17/18 21:11 09/17/18 18:00 09/17/18 21:11 09/17/18 18:00 Intake and Output: 09/17/18 09/18/18 18:59 06:59 Intake Total 2900 83 Output Total 2020 Balance 880 83 - Medications Medications: Current Medications Acetaminophen (Tylenol 650mg/20.3ml Solution Ud) 650 mg NG Q6 PRN PRN Reason: Temperature Last Admin: 09/16/18 21:42 Dose: 650 mg Acetaminophen (Tylenol 650mg/20.3ml Solution Ud) 650 mg PO Q6 PRN PRN Reason: Pain, Mild (1-3) Last Admin: 09/02/18 05:54 Dose: 650 mg Albuterol/Ipratropium (Duoneb 3 Mg/0.5 Mg (3 Ml) Ud) 3 ml INH RQ6 [facility] Last Admin: 09/17/18 13:30 Dose: 3 ml Aspirin (Aspirin Chewable) 81 mg NG DAILY [facility] Last Admin: 09/12/18 08:18 Dose: 81 mg Dimethicone (Proshield Plus Skin Protectant) 1 applic TOP Q8 [facility] Last Admin: 09/17/18 16:17 Dose: 1 applic Enoxaparin Sodium (Lovenox) 40 mg SC DAILY [facility]; Protocol Last Admin: 09/17/18 08:23 Dose: 40 mg Hydralazine HCl (Apresoline) 10 mg IV Q6 PRN PRN Reason: Systolic Blood Pressure Last Admin: 09/16/18 12:15 Dose: 10 mg Meropenem 1 gm/ Sodium (Chloride) 100 mls @ 100 mls/hr IVPB Q8 [facility]; Protocol Last Admin: 09/17/18 16:16 Dose: 100 mls/hr Amphotericin B 70 mg/ Dextrose 500 mls @ 83.333 mls/hr IVPB DAILY@1800 [facility]; Protocol Last Admin: 09/17/18 18:35 Dose: 83.333 mls/hr Metronidazole (Flagyl 500mg/100ml Ns) 100 mls @ 100 mls/hr IVPB Q8 [facility]; Protocol Last Admin: 09/17/18 17:32 Dose: 100 mls/hr Insulin Detemir (Levemir) 20 units SC Q12 [facility] Last Admin: 09/17/18 21:04 Dose: 20 units Insulin Human Lispro (Humalog) 0 units SC Q6 [facility]; Protocol Last Admin: 09/17/18 21:05 Dose: 6 unit Lorazepam (Ativan) 0.5 mg IVP Q4 PRN PRN Reason: Agitation Last Admin: 09/17/18 21:13 Dose: 0.5 mg Methylprednisolone (Solu-Medrol) 20 mg IV 0100,0900,1700 [facility] Last Admin: 09/17/18 16:18 Dose: 20 mg Metoprolol Tartrate (Lopressor) 25 mg PO Q6 [facility] Last Admin: 09/17/18 21:11 Dose: 25 mg Nystatin (Nystop Topical Powder) 1 applic TOP TID [facility] Last Admin: 09/17/18 16:16 Dose: 1 applic Pantoprazole Sodium (Protonix Susp) 40 mg NG DAILY [facility] Last Admin: 09/17/18 08:25 Dose: 40 mg Sucralfate (Carafate Oral Susp) 1 gm PO ACHS [facility] Last Admin: 08/18/18 22:07 Dose: 1 gm - Labs Labs: 09/17/18 04:45 09/17/18 04:45 PT 12.1 Seconds (9.8-13.1) 09/14/18 13:30 INR 1.1 09/14/18 13:30 APTT 24.8 Seconds (25.6-37.1) L 09/14/18 13:30 Assessment and Plan (1) Acute respiratory failure Status: Resolved (2) Hypertensive urgency Status: Resolved (3) DVT (deep venous thrombosis) Status: Acute (4) Cardiac arrest Status: Acute (5) AURORA (acute kidney injury) Status: Acute (6) NSTEMI (non-ST elevated myocardial infarction) Status: Acute (7) Type 2 diabetes mellitus with hyperglycemia Status: Chronic (8) Gallbladder disease Status: Acute (9) Severe anemia Status: Resolved (10) Aspiration pneumonia Status: Acute (11) Acute gastroenteritis Status: Resolved (12) Sepsis Status: Acute - Assessment and Plan (Free Text) Plan: Continue Current Care On IV Vancomyicn and Meropenem
--- NOTE | 2018-09-17 23:50 | CP.PCM.PN ---
Subjective - Date & Time of Evaluation Date of Evaluation: 09/16/18 Time of Evaluation: 07:15 - Subjective Subjective: Seen and examined at the bed side. Intubated on MV. Ativan and Morphine PRN. Patient not waking up despite some improvement on Respiration. Leukocytosis worsening due to worsening Sepsis. Objective - Vital Signs/Intake and Output Vital Signs (last 24 hours): Temp Pulse Resp BP Pulse Ox 97.2 F L 94 H 27 H 142/62 100 09/17/18 15:45 09/17/18 21:11 09/17/18 18:00 09/17/18 21:11 09/17/18 18:00 Intake and Output: 09/17/18 09/18/18 18:59 06:59 Intake Total 2900 83 Output Total 2020 Balance 880 83 - Medications Medications: Current Medications Acetaminophen (Tylenol 650mg/20.3ml Solution Ud) 650 mg NG Q6 PRN PRN Reason: Temperature Last Admin: 09/16/18 21:42 Dose: 650 mg Acetaminophen (Tylenol 650mg/20.3ml Solution Ud) 650 mg PO Q6 PRN PRN Reason: Pain, Mild (1-3) Last Admin: 09/02/18 05:54 Dose: 650 mg Albuterol/Ipratropium (Duoneb 3 Mg/0.5 Mg (3 Ml) Ud) 3 ml INH RQ6 [facility] Last Admin: 09/17/18 13:30 Dose: 3 ml Aspirin (Aspirin Chewable) 81 mg NG DAILY [facility] Last Admin: 09/12/18 08:18 Dose: 81 mg Dimethicone (Proshield Plus Skin Protectant) 1 applic TOP Q8 [facility] Last Admin: 09/17/18 16:17 Dose: 1 applic Enoxaparin Sodium (Lovenox) 40 mg SC DAILY [facility]; Protocol Last Admin: 09/17/18 08:23 Dose: 40 mg Hydralazine HCl (Apresoline) 10 mg IV Q6 PRN PRN Reason: Systolic Blood Pressure Last Admin: 09/16/18 12:15 Dose: 10 mg Meropenem 1 gm/ Sodium (Chloride) 100 mls @ 100 mls/hr IVPB Q8 [facility]; Protocol Last Admin: 09/17/18 16:16 Dose: 100 mls/hr Amphotericin B 70 mg/ Dextrose 500 mls @ 83.333 mls/hr IVPB DAILY@1800 [facility]; Protocol Last Admin: 09/17/18 18:35 Dose: 83.333 mls/hr Metronidazole (Flagyl 500mg/100ml Ns) 100 mls @ 100 mls/hr IVPB Q8 [facility]; Protocol Last Admin: 09/17/18 17:32 Dose: 100 mls/hr Insulin Detemir (Levemir) 20 units SC Q12 [facility] Last Admin: 09/17/18 21:04 Dose: 20 units Insulin Human Lispro (Humalog) 0 units SC Q6 [facility]; Protocol Last Admin: 09/17/18 21:05 Dose: 6 unit Lorazepam (Ativan) 0.5 mg IVP Q4 PRN PRN Reason: Agitation Last Admin: 09/17/18 21:13 Dose: 0.5 mg Methylprednisolone (Solu-Medrol) 20 mg IV 0100,0900,1700 [facility] Last Admin: 09/17/18 16:18 Dose: 20 mg Metoprolol Tartrate (Lopressor) 25 mg PO Q6 [facility] Last Admin: 09/17/18 21:11 Dose: 25 mg Nystatin (Nystop Topical Powder) 1 applic TOP TID [facility] Last Admin: 09/17/18 16:16 Dose: 1 applic Pantoprazole Sodium (Protonix Susp) 40 mg NG DAILY [facility] Last Admin: 09/17/18 08:25 Dose: 40 mg Sucralfate (Carafate Oral Susp) 1 gm PO ACHS [facility] Last Admin: 08/18/18 22:07 Dose: 1 gm - Labs Labs: 09/17/18 04:45 09/17/18 04:45 PT 12.1 Seconds (9.8-13.1) 09/14/18 13:30 INR 1.1 09/14/18 13:30 APTT 24.8 Seconds (25.6-37.1) L 09/14/18 13:30 Assessment and Plan (1) Acute respiratory failure Status: Resolved (2) Hypertensive urgency Status: Resolved (3) DVT (deep venous thrombosis) Status: Acute (4) Cardiac arrest Status: Acute (5) AURORA (acute kidney injury) Status: Acute (6) NSTEMI (non-ST elevated myocardial infarction) Status: Acute (7) Type 2 diabetes mellitus with hyperglycemia Status: Chronic (8) Acute gastroenteritis Status: Resolved (9) Abdominal pain in female Status: Resolved (10) Gallbladder disease Status: Acute (11) Severe anemia Status: Resolved (12) Aspiration pneumonia Status: Acute - Assessment and Plan (Free Text) Plan: D/w the Neurologist and Twisting Frame Changer, and C/w Current care
--- NOTE | 2018-09-17 23:51 | CP.PCM.PN ---
Subjective - Date & Time of Evaluation Date of Evaluation: 09/17/18 Time of Evaluation: 07:35 - Subjective Subjective: Seen and examined at the bed side. Intubated on MV. Ativan and Morphine PRN. Patient not waking up despite some improvement on Respiration. Leukocytosis worsening due to worsening Sepsis. Patient was started on Amphotericin B for fungal coverage. Objective - Vital Signs/Intake and Output Vital Signs (last 24 hours): Temp Pulse Resp BP Pulse Ox 97.2 F L 94 H 27 H 142/62 100 09/17/18 15:45 09/17/18 21:11 09/17/18 18:00 09/17/18 21:11 09/17/18 18:00 Intake and Output: 09/17/18 09/18/18 18:59 06:59 Intake Total 2900 83 Output Total 2020 Balance 880 83 - Medications Medications: Current Medications Acetaminophen (Tylenol 650mg/20.3ml Solution Ud) 650 mg NG Q6 PRN PRN Reason: Temperature Last Admin: 09/16/18 21:42 Dose: 650 mg Acetaminophen (Tylenol 650mg/20.3ml Solution Ud) 650 mg PO Q6 PRN PRN Reason: Pain, Mild (1-3) Last Admin: 09/02/18 05:54 Dose: 650 mg Albuterol/Ipratropium (Duoneb 3 Mg/0.5 Mg (3 Ml) Ud) 3 ml INH RQ6 [facility] Last Admin: 09/17/18 13:30 Dose: 3 ml Aspirin (Aspirin Chewable) 81 mg NG DAILY [facility] Last Admin: 09/12/18 08:18 Dose: 81 mg Dimethicone (Proshield Plus Skin Protectant) 1 applic TOP Q8 [facility] Last Admin: 09/17/18 16:17 Dose: 1 applic Enoxaparin Sodium (Lovenox) 40 mg SC DAILY [facility]; Protocol Last Admin: 09/17/18 08:23 Dose: 40 mg Hydralazine HCl (Apresoline) 10 mg IV Q6 PRN PRN Reason: Systolic Blood Pressure Last Admin: 09/16/18 12:15 Dose: 10 mg Meropenem 1 gm/ Sodium (Chloride) 100 mls @ 100 mls/hr IVPB Q8 [facility]; Protocol Last Admin: 09/17/18 16:16 Dose: 100 mls/hr Amphotericin B 70 mg/ Dextrose 500 mls @ 83.333 mls/hr IVPB DAILY@1800 [facility]; Protocol Last Admin: 09/17/18 18:35 Dose: 83.333 mls/hr Metronidazole (Flagyl 500mg/100ml Ns) 100 mls @ 100 mls/hr IVPB Q8 [facility]S [facility]; Protocol Last Admin: 09/17/18 17:32 Dose: 100 mls/hr Insulin Detemir (Levemir) 20 units SC Q12 [facility] Last Admin: 09/17/18 21:04 Dose: 20 units Insulin Human Lispro (Humalog) 0 units SC Q6 [facility]; Protocol Last Admin: 09/17/18 21:05 Dose: 6 unit Lorazepam (Ativan) 0.5 mg IVP Q4 PRN PRN Reason: Agitation Last Admin: 09/17/18 21:13 Dose: 0.5 mg Methylprednisolone (Solu-Medrol) 20 mg IV 0100,0900,1700 [facility] Last Admin: 09/17/18 16:18 Dose: 20 mg Metoprolol Tartrate (Lopressor) 25 mg PO Q6 [facility] Last Admin: 09/17/18 21:11 Dose: 25 mg Nystatin (Nystop Topical Powder) 1 applic TOP TID [facility] Last Admin: 09/17/18 16:16 Dose: 1 applic Pantoprazole Sodium (Protonix Susp) 40 mg NG DAILY [facility] Last Admin: 09/17/18 08:25 Dose: 40 mg Sucralfate (Carafate Oral Susp) 1 gm PO ACHS [facility] Last Admin: 08/18/18 22:07 Dose: 1 gm - Labs Labs: 09/17/18 04:45 09/17/18 04:45 PT 12.1 Seconds (9.8-13.1) 09/14/18 13:30 INR 1.1 09/14/18 13:30 APTT 24.8 Seconds (25.6-37.1) L 09/14/18 13:30 Assessment and Plan (1) Acute respiratory failure Status: Resolved (2) Hypertensive urgency Status: Resolved (3) DVT (deep venous thrombosis) Status: Acute (4) Cardiac arrest Status: Acute (5) AURORA (acute kidney injury) Status: Acute (6) NSTEMI (non-ST elevated myocardial infarction) Status: Acute (7) Type 2 diabetes mellitus with hyperglycemia Status: Chronic (8) Acute gastroenteritis Status: Resolved (9) Abdominal pain in female Status: Resolved (10) Gallbladder disease Status: Acute (11) Severe anemia Status: Resolved (12) Aspiration pneumonia Status: Acute (13) Pleural effusion Assessment & Plan: B/L Pigtail drainage, and will D/c for Minimal Drainage Status: Acute - Assessment and Plan (Free Text) Plan: Continue Current Care
[2018-09-18] MEDS: Albuterol-Ipratrop 3 mg / 0.5 (3 ml) UD INH SCH ×4 (01:12→19:49)
[2018-09-18] MEDS: Proshield Plus GEL TOP SCH ×3 (01:18→17:10)
[2018-09-18] MEDS: Meropenem 1 GM in Sodium Chloride 0.9% 100 ML IVPB SCH ×3 (01:18→17:10)
[2018-09-18] MEDS: MethylPREDNISolone 40 mg Vial IV SCH ×3 (01:18→17:10)
[2018-09-18] MEDS: metroNIDAZOLE 500mg/100ml NS 100 ML IVPB SCH ×3 (01:19→17:07)
[2018-09-18] MEDS: Insulin Lispro (humaLOG) 100 Units/ml Inj SC SCH ×4 (04:10→21:39)
[2018-09-18 05:35] LABS: BASO # 0.1 K/uL (0.0-0.2); BASO % 0.2 % (0.0-2.0); HEMOGLOBIN 8.9 g/dL (12.0-16.0); LYMPH # 0.5 K/uL (1.0-4.3); LYMPH % 1.5 % (20.0-40.0); MEAN CELL VOLUME 87.4 fl (81.0-99.0); MEAN CORPUSCULAR HEMOGLOBIN 28.4 pg (27.0-31.0); MEAN CORPUSCULAR HGB CONC 32.5 g/dL (33.0-37.0); MONO # 1.6 K/uL (0.0-0.8); NEUT # 30.7 K/uL (1.8-7.0); NEUT % 93.3 % (50.0-75.0); NRBC % 0.1 % (0.0-0.0); PLATELET COUNT 202 K/uL (130-400); RBC 3.13 Mil/uL (3.80-5.20); RED CELL DISTRIBUTION WIDTH 21.8 % (11.5-14.5); WHITE BLOOD COUNT 32.8 K/uL (4.8-10.8)
[2018-09-18 06:07] LABS: ALB/GLOB RATIO 0.9 (1.0-2.1); ALBUMIN 2.3 g/dL (3.5-5.0); CALCIUM 7.3 mg/dL (8.4-10.2)
[2018-09-18] MEDS ORDERED: Potassium Chloride 40 MEQ in Sodium Chloride 0.45% 1,000 ML IV SCH ×2 (06:30→10:15)
[2018-09-18] MEDS: Insulin Detemir 100 Units/ml Inj SC SCH ×2 (08:11→21:38)
[2018-09-18] MEDS: Pantoprazole 40 mg Susp UD NG SCH (08:14)
[2018-09-18] MEDS ORDERED: Potassium Chloride 20 mEq/15 ml LIQ UD PO SCH (09:00)
[2018-09-18] MEDS: Enoxaparin 40 mg Syringe SC SCH (10:12)
--- NOTE | 2018-09-18 11:34 | CP.PCM.PN ---
Subjective - Date & Time of Evaluation Date of Evaluation: 09/18/18 Time of Evaluation: 08:00 - Subjective Subjective: Nephrology Consultation Note Assessment: critical acute kidney injury related to multifactorial including sepsis Respiratory failure Sepsis [place] hypernatremia fever leukocytosis hypokalemia Plan no acute need for dialysis continue free water supplements management of infection antibiotics as per renal dose Respiratory management Kidney function fluctuating creatinine. pt started on amphotericin B, will need to monitor kidney fxn on it. supplement lytes as needed maintain hemodynamics stable Dose meds/antibiotics for reduced GFR. Glycemic control Further work up for as per primary team Thanks for allowing me to participate in care of your patient. Will follow patient with you. Please call if any Qs. had d/w team Dr Fabian Gallagher Office: [phone] Subjective: Noted events overnight. Patients intubated. unable to obtain ROS Physical Examination: General Appearance: orally intubated and non communicating Vitals reviewed and noted as below Head; Atraumatic, normocephalic Neck; supple no lymphadenopathy, no thyromegaly or bruit Lungs: Normal respiratory rate/effort. Breath sounds bilateral reduced at bases Heart: Normal rate. s1s2 normal. No rub or gallop. Extremities: no edema. No varicose veins Neurological: Patient is non communicating Skin: Warm and dry. Normal turgor. No rash. Palpitation: Normal elasticity for age Abdomen: Abdomen is soft. Bowel sounds +. There is no abdominal tenderness, no guarding/rigidity no organomegaly Psych: unable MSK: no joint tenderness or swelling. Digits and nails normal, no deformity : kidney or bladder not palpable Labs/imaging reviewed. Past medical history, past surgical history, family history, social history, allergy reviewed and noted as below Family hx: no hx of CKD. Rest non-contributory Objective - Vital Signs/Intake and Output Vital Signs (last 24 hours): Temp Pulse Resp BP Pulse Ox 98.8 F 92 H 22 163/68 H 100 09/18/18 08:00 09/18/18 10:12 09/18/18 10:00 09/18/18 10:12 09/18/18 10:00 Intake and Output: 09/18/18 09/18/18 06:59 18:59 Intake Total 1749 620 Output Total 1360 Balance 389 620 - Medications Medications: Current Medications Acetaminophen (Tylenol 650mg/20.3ml Solution Ud) 650 mg NG Q6 PRN PRN Reason: Temperature Last Admin: 09/16/18 21:42 Dose: 650 mg Acetaminophen (Tylenol 650mg/20.3ml Solution Ud) 650 mg PO Q6 PRN PRN Reason: Pain, Mild (1-3) Last Admin: 09/02/18 05:54 Dose: 650 mg Albuterol/Ipratropium (Duoneb 3 Mg/0.5 Mg (3 Ml) Ud) 3 ml INH RQ6 [facility] Last Admin: 09/18/18 07:29 Dose: 3 ml Aspirin (Aspirin Chewable) 81 mg NG DAILY [facility] Last Admin: 09/12/18 08:18 Dose: 81 mg Dimethicone (Proshield Plus Skin Protectant) 1 applic TOP Q8 [facility] Last Admin: 09/18/18 08:14 Dose: 1 applic Enoxaparin Sodium (Lovenox) 40 mg SC DAILY [facility]; Protocol Last Admin: 09/18/18 10:12 Dose: 40 mg Hydralazine HCl (Apresoline) 10 mg IV Q6 PRN PRN Reason: Systolic Blood Pressure Last Admin: 09/16/18 12:15 Dose: 10 mg Meropenem 1 gm/ Sodium (Chloride) 100 mls @ 100 mls/hr IVPB Q8 [facility]; Protocol Last Admin: 09/18/18 10:12 Dose: 100 mls/hr Amphotericin B 70 mg/ Dextrose 500 mls @ 83.333 mls/hr IVPB DAILY@1800 [facility]; Protocol Last Admin: 09/17/18 18:35 Dose: 83.333 mls/hr Metronidazole (Flagyl 500mg/100ml Ns) 100 mls @ 100 mls/hr IVPB Q8 [facility]; Protocol Last Admin: 09/18/18 08:10 Dose: 100 mls/hr Potassium Chloride 40 meq/ (Sodium Chloride) 1,020 mls @ 75 mls/hr IV .[id number] [facility] Stop: 09/19/18 10:11 Insulin Detemir (Levemir) 20 units SC Q12 [facility] Last Admin: 09/18/18 08:11 Dose: 20 units Insulin Human Lispro (Humalog) 0 units SC Q6 [facility]; Protocol Last Admin: 09/18/18 04:10 Dose: 4 unit Lorazepam (Ativan) 0.5 mg IVP Q4 PRN PRN Reason: Agitation Last Admin: 09/18/18 04:14 Dose: 0.5 mg Methylprednisolone (Solu-Medrol) 20 mg IV 0100,0900,1700 [facility] Last Admin: 09/18/18 08:14 Dose: 20 mg Metoprolol Tartrate (Lopressor) 25 mg PO Q6 [facility] Last Admin: 09/18/18 10:12 Dose: 25 mg Nystatin (Nystop Topical Powder) 1 applic TOP TID [facility] Last Admin: 09/18/18 08:13 Dose: 1 applic Pantoprazole Sodium (Protonix Susp) 40 mg NG DAILY [facility] Last Admin: 09/18/18 08:14 Dose: 40 mg Potassium Chloride (Potassium Chloride Oral Soln) 40 meq PO Q6H [facility] Stop: 09/19/18 04:16 Sucralfate (Carafate Oral Susp) 1 gm PO ACHS [facility] Last Admin: 08/18/18 22:07 Dose: 1 gm - Labs Labs: 09/18/18 04:20 09/18/18 04:20 PT 12.1 Seconds (9.8-13.1) 09/14/18 13:30 INR 1.1 09/14/18 13:30 APTT 24.8 Seconds (25.6-37.1) L 09/14/18 13:30
[2018-09-18] MEDS: Potassium Chloride 20 mEq/15 ml LIQ UD PO SCH ×3 (11:49→21:33)
[2018-09-18 12:13] LABS: ANISOCYTOSIS MODERATE; LYMPHOCYTE 2 % (20-50); MONOCYTE 6 % (0-10); NEUTROPHIL 92 % (42-75); PLATELET ESTIMATE NORMAL (NORMAL); TOTAL CELLS COUNTED 100
[2018-09-18 12:14] LABS: HYPOCHROMIC MODERATE; OVALOCYTES SLIGHT; SCHISTOCYTES SLIGHT; TEARDROP CELLS SLIGHT; TOXIC GRANULATION PRESENT
--- NOTE | 2018-09-18 12:38 | CP.PCM.CON ---
History of Present Illness - History of Present Illness History of Present Illness: 73 yo female admitted with sepsis and acute NSTEMI had cholecystitis but was not a surgical candidate developed VRE sepsis then pneumonia and septic shock now intubated comatose with bilateral chest tubes on multiple antibiotics- recent cultures negative all lines have been changed and repeat blood cultures negative prognosis remains poor from the outset Review of Systems - Review of Systems Systems not reviewed;Unavailable: Acuity of Condition, Altered Mental Status All systems: reviewed and no additional remarkable complaints except Past Patient History - Past Medical History & Family History Past Medical History?: Yes Past Family History: Reviewed and not pertinent - Past Social History Smoking Status: Never Smoked Alcohol: None Drugs: Denies Home Situation {Lives}: With Family - CARDIAC Hx Cardiac Disorders: Yes Hx Hypertension: Yes Hx Pacemaker: No - PULMONARY Hx Respiratory Disorders: No - NEUROLOGICAL Hx Neurological Disorder: Yes Hx Dizziness: Yes - HEENT Hx HEENT Problems: No - RENAL Hx Chronic Kidney Disease: No - ENDOCRINE/METABOLIC Hx Endocrine Disorders: Yes Hx Diabetes Mellitus Type 2: Yes - HEMATOLOGICAL/ONCOLOGICAL Hx Blood Disorders: No Hx Cancer: No - INTEGUMENTARY Hx Dermatological Problems: No - MUSCULOSKELETAL/RHEUMATOLOGICAL Hx Musculoskeletal Disorders: Yes Hx Falls: Yes - GASTROINTESTINAL Hx Gastrointestinal Disorders: Yes Hx Gastritis: Yes - GENITOURINARY/GYNECOLOGICAL Hx Genitourinary Disorders: No - PSYCHIATRIC Hx Psychophysiologic Disorder: No Hx Substance Use: No - SURGICAL HISTORY Hx Surgeries: No Hx Mastectomy: No - ANESTHESIA Hx Anesthesia: No Meds Allergies/Adverse Reactions: Allergies Allergy/AdvReac Type Severity Reaction Status Date / Time No Known Allergies Allergy Verified 09/20/17 08:57 - Medications Medications: Current Medications Acetaminophen (Tylenol 650mg/20.3ml Solution Ud) 650 mg NG Q6 PRN PRN Reason: Temperature Last Admin: 09/16/18 21:42 Dose: 650 mg Acetaminophen (Tylenol 650mg/20.3ml Solution Ud) 650 mg PO Q6 PRN PRN Reason: Pain, Mild (1-3) Last Admin: 09/02/18 05:54 Dose: 650 mg Albuterol/Ipratropium (Duoneb 3 Mg/0.5 Mg (3 Ml) Ud) 3 ml INH RQ6 [facility] Last Admin: 09/18/18 07:29 Dose: 3 ml Aspirin (Aspirin Chewable) 81 mg NG DAILY [facility] Last Admin: 09/12/18 08:18 Dose: 81 mg Dimethicone (Proshield Plus Skin Protectant) 1 applic TOP Q8 [facility] Last Admin: 09/18/18 08:14 Dose: 1 applic Hydralazine HCl (Apresoline) 10 mg IV Q6 PRN PRN Reason: Systolic Blood Pressure Last Admin: 09/16/18 12:15 Dose: 10 mg Meropenem 1 gm/ Sodium (Chloride) 100 mls @ 100 mls/hr IVPB Q8 [facility]; Protocol Last Admin: 09/18/18 10:12 Dose: 100 mls/hr Amphotericin B 70 mg/ Dextrose 500 mls @ 83.333 mls/hr IVPB DAILY@1800 [facility]; Protocol Last Admin: 09/17/18 18:35 Dose: 83.333 mls/hr Metronidazole (Flagyl 500mg/100ml Ns) 100 mls @ 100 mls/hr IVPB Q8 [facility]; Protocol Last Admin: 09/18/18 08:10 Dose: 100 mls/hr Potassium Chloride 40 meq/ (Sodium Chloride) 1,020 mls @ 75 mls/hr IV .[id number] [facility] Stop: 09/19/18 10:11 Insulin Detemir (Levemir) 20 units SC Q12 [facility] Last Admin: 09/18/18 08:11 Dose: 20 units Insulin Human Lispro (Humalog) 0 units SC Q6 [facility]; Protocol Last Admin: 09/18/18 11:48 Dose: 2 unit Methylprednisolone (Solu-Medrol) 20 mg IV 0100,0900,1700 [facility] Last Admin: 09/18/18 08:14 Dose: 20 mg Metoprolol Tartrate (Lopressor) 25 mg PO Q6 [facility] Last Admin: 09/18/18 10:12 Dose: 25 mg Nystatin (Nystop Topical Powder) 1 applic TOP TID [facility] Last Admin: 09/18/18 08:13 Dose: 1 applic Pantoprazole Sodium (Protonix Susp) 40 mg NG DAILY [facility] Last Admin: 09/18/18 08:14 Dose: 40 mg Potassium Chloride (Potassium Chloride Oral Soln) 40 meq PO Q6H [facility] Stop: 09/19/18 04:16 Last Admin: 09/18/18 11:49 Dose: 40 meq Sucralfate (Carafate Oral Susp) 1 gm PO ACHS [facility] Last Admin: 08/18/18 22:07 Dose: 1 gm Physical Exam - Constitutional Appears: No Acute Distress, Confused, Chronically Ill - Head Exam Head Exam: NORMOCEPHALIC - Eye Exam Eye Exam: absent: Scleral icterus - ENT Exam ENT Exam: Mucous Membranes Dry - Neck Exam Neck exam: Negative for: Lymphadenopathy - Respiratory Exam Respiratory Exam: Decreased Breath Sounds, Prolonged Expiratory Phase, Rhonchi Additional comments: bilat chest tubes - Cardiovascular Exam Cardiovascular Exam: REGULAR RHYTHM, +S1, +S2 - GI/Abdominal Exam GI & Abdominal Exam: Diminished Bowel Sounds, Soft. absent: Tenderness - Rectal Exam Rectal Exam: Deferred - Exam Exam: NORMAL INSPECTION - Extremities Exam Extremities exam: Positive for: pedal edema - Back Exam Back exam: absent: CVA tenderness (L), CVA tenderness (R) - Neurological Exam Neurological exam: Altered - Psychiatric Exam Psychiatric exam: Depressed - Skin Skin Exam: Dry Results - Vital Signs Recent Vital Signs: Last Vital Signs Temp 98.8 F 09/18/18 08:00 Pulse 92 H 09/18/18 10:12 Resp 22 09/18/18 10:00 BP 163/68 H 09/18/18 10:12 Pulse Ox 100 09/18/18 10:00 - Labs Result Diagrams: 09/18/18 04:20 09/18/18 04:20 Labs: Laboratory Results - last 24 hr 09/15/18 09/17/18 09/17/18 08:07 16:20 20:57 WBC RBC Hgb Hct MCV MCH MCHC RDW Plt Count MPV Neut % (Auto) Lymph % (Auto) Cottle % (Auto) Eos % (Auto) Baso % (Auto) Neut # (Auto) Lymph # (Auto) Cottle # (Auto) Eos # (Auto) Baso # (Auto) Neutrophils % (Manual) Lymphocytes % (Manual) Monocytes % (Manual) Toxic Granulation Platelet Estimate Hypochromasia (manual) Anisocytosis (manual) Tear Drop Cells Ovalocytes Schistocytes Sodium Potassium Chloride Carbon Dioxide Anion Gap BUN Creatinine Est GFR ( Amer) Est GFR (Non-Af Amer) POC Glucose (mg/dL) 354 H 283 H Random Glucose Hemoglobin A1c Calcium Phosphorus Magnesium RBC Magnesium 6.1 Total Bilirubin AST ALT Alkaline Phosphatase Total Protein Albumin Globulin Albumin/Globulin Ratio 09/18/18 09/18/18 09/18/18 03:48 04:20 04:20 WBC 32.8 H RBC 3.13 L Hgb 8.9 L Hct 27.4 L MCV 87.4 MCH 28.4 MCHC 32.5 L RDW 21.8 H Plt Count 202 MPV 11.0 Neut % (Auto) 93.3 H Lymph % (Auto) 1.5 L Cottle % (Auto) 5.0 Eos % (Auto) 0.0 Baso % (Auto) 0.2 Neut # (Auto) 30.7 H Lymph # (Auto) 0.5 L Cottle # (Auto) 1.6 H Eos # (Auto) 0.0 Baso # (Auto) 0.1 Neutrophils % (Manual) 92 H Lymphocytes % (Manual) 2 L Monocytes % (Manual) 6 Toxic Granulation Present Platelet Estimate Normal Hypochromasia (manual) Moderate Anisocytosis (manual) Moderate Tear Drop Cells Slight Ovalocytes Slight Schistocytes Slight Sodium 147 Potassium 3.1 L Chloride 112 H Carbon Dioxide 26 Anion Gap 12 BUN 85 H Creatinine 1.5 H Est GFR ( Amer) 41 Est GFR (Non-Af Amer) 34 POC Glucose (mg/dL) 222 H Random Glucose 221 H Hemoglobin A1c Calcium 7.3 L Phosphorus 4.9 H Magnesium 2.4 H RBC Magnesium Total Bilirubin 0.8 AST 48 H ALT 80 H D Alkaline Phosphatase 153 H Total Protein 4.8 L Albumin 2.3 L Globulin 2.5 Albumin/Globulin Ratio 0.9 L 09/18/18 09/18/18 04:20 11:42 WBC RBC Hgb Hct MCV MCH MCHC RDW Plt Count MPV Neut % (Auto) Lymph % (Auto) Cottle % (Auto) Eos % (Auto) Baso % (Auto) Neut # (Auto) Lymph # (Auto) Cottle # (Auto) Eos # (Auto) Baso # (Auto) Neutrophils % (Manual) Lymphocytes % (Manual) Monocytes % (Manual) Toxic Granulation Platelet Estimate Hypochromasia (manual) Anisocytosis (manual) Tear Drop Cells Ovalocytes Schistocytes Sodium Potassium Chloride Carbon Dioxide Anion Gap BUN Creatinine Est GFR ( Amer) Est GFR (Non-Af Amer) POC Glucose (mg/dL) 193 H Random Glucose Hemoglobin A1c 9.3 H Calcium Phosphorus Magnesium RBC Magnesium Total Bilirubin AST ALT Alkaline Phosphatase Total Protein Albumin Globulin Albumin/Globulin Ratio Assessment & Plan (1) Dehydration Status: Acute (2) NSTEMI (non-ST elevated myocardial infarction) Status: Resolved (3) Nausea & vomiting Status: Resolved (4) Type 2 diabetes mellitus with hyperglycemia Status: Chronic Priority: Medium (5) Abdominal pain Status: Acute (6) Gallbladder disease Status: Acute (7) Pneumonia Status: Acute - Assessment and Plan (Free Text) Assessment: 73 yo female admitted with sepsis and acute NSTEMI had cholecystitis but was not a surgical candidate developed VRE sepsis then pneumonia and septic shock now intubated comatose with bilateral chest tubes on multiple antibiotics- recent cultures negative all lines have been changed and repeat blood cultures negative prognosis remains poor from the outset
--- NOTE | 2018-09-18 12:53 | RAD ---
Date of service: 09/18/2018 HISTORY: intubated COMPARISON: No prior. FINDINGS: In situ ETT, tip of which lies approximately 3.6 cm above kevon. No change left-sided PICC line with tip in the SVC/brachiocephalic junction. Again noted is in situ right-sided pigtail chest tube catheter LUNGS: There appear to be pulmonary venous congestive changes with bilateral lower lobe alveolar-type infiltrates and bilateral effusions. PLEURA: As above. No pneumothorax apparent. CARDIOVASCULAR: Mild aortic atherosclerotic calcification present. Cardiac silhouette stable. No pulmonary vascular congestion. OSSEOUS STRUCTURES: No significant abnormalities. VISUALIZED UPPER ABDOMEN: Normal. OTHER FINDINGS: None. IMPRESSION: Support lines and tubes as above. Mild pulmonary venous congestive changes with bilateral lower lobe alveolar-type infiltrates and bilateral effusions.
[2018-09-18 16:16] LABS: ABG ALLEN TEST YES; ARTERIAL BLOOD GAS O2 SAT 99.8 % (95-98); ARTERIAL BLOOD GAS PCO2 35 mm/Hg (35-45); ARTERIAL BLOOD GAS PH 7.48 (7.35-7.45); ARTERIAL BLOOD GAS PO2 119 mm/Hg (80-100); ARTERIAL BLOOD GAS TCO2 27.2 mmol/L (22-28)
--- NOTE | 2018-09-18 16:59 | CP.PCM.PN ---
Subjective - Date & Time of Evaluation Date of Evaluation: 09/18/18 Time of Evaluation: 16:50 - Subjective Subjective: Seen and examined at the bed side. Intubated on MV. Ativan and Morphine PRN. Patient not waking up despite some improvement on Respiration. Leukocytosis worsening due to worsening Sepsis. Patient was started on Amphotericin B for fungal coverage. Objective - Vital Signs/Intake and Output Vital Signs (last 24 hours): Temp Pulse Resp BP Pulse Ox 99.6 F 95 H 19 140/73 100 09/18/18 12:00 09/18/18 14:00 09/18/18 14:00 09/18/18 14:00 09/18/18 14:00 Intake and Output: 09/18/18 09/18/18 06:59 18:59 Intake Total 1749 1420 Output Total 1360 Balance 389 1420 - Medications Medications: Current Medications Acetaminophen (Tylenol 650mg/20.3ml Solution Ud) 650 mg NG Q6 PRN PRN Reason: Temperature Last Admin: 09/16/18 21:42 Dose: 650 mg Acetaminophen (Tylenol 650mg/20.3ml Solution Ud) 650 mg PO Q6 PRN PRN Reason: Pain, Mild (1-3) Last Admin: 09/02/18 05:54 Dose: 650 mg Albuterol/Ipratropium (Duoneb 3 Mg/0.5 Mg (3 Ml) Ud) 3 ml INH RQ6 [facility] Last Admin: 09/18/18 13:10 Dose: 3 ml Aspirin (Aspirin Chewable) 81 mg NG DAILY [facility] Last Admin: 09/12/18 08:18 Dose: 81 mg Dimethicone (Proshield Plus Skin Protectant) 1 applic TOP Q8 [facility] Last Admin: 09/18/18 08:14 Dose: 1 applic Hydralazine HCl (Apresoline) 10 mg IV Q6 PRN PRN Reason: Systolic Blood Pressure Last Admin: 09/16/18 12:15 Dose: 10 mg Meropenem 1 gm/ Sodium (Chloride) 100 mls @ 100 mls/hr IVPB Q8 [facility]; Protocol Last Admin: 09/18/18 10:12 Dose: 100 mls/hr Amphotericin B 70 mg/ Dextrose 500 mls @ 83.333 mls/hr IVPB DAILY@1800 [facility]; Protocol Last Admin: 09/17/18 18:35 Dose: 83.333 mls/hr Metronidazole (Flagyl 500mg/100ml Ns) 100 mls @ 100 mls/hr IVPB Q8 [facility]; Protocol Last Admin: 09/18/18 08:10 Dose: 100 mls/hr Potassium Chloride 40 meq/ (Sodium Chloride) 1,020 mls @ 75 mls/hr IV .[id number] [facility] Stop: 09/19/18 10:11 Insulin Detemir (Levemir) 20 units SC Q12 [facility] Last Admin: 09/18/18 08:11 Dose: 20 units Insulin Human Lispro (Humalog) 0 units SC Q6 [facility]; Protocol Last Admin: 09/18/18 11:48 Dose: 2 unit Methylprednisolone (Solu-Medrol) 20 mg IV 0100,0900,1700 [facility] Last Admin: 09/18/18 08:14 Dose: 20 mg Metoprolol Tartrate (Lopressor) 25 mg PO Q6 [facility] Last Admin: 09/18/18 10:12 Dose: 25 mg Nystatin (Nystop Topical Powder) 1 applic TOP TID [facility] Last Admin: 09/18/18 08:13 Dose: 1 applic Pantoprazole Sodium (Protonix Susp) 40 mg NG DAILY [facility] Last Admin: 09/18/18 08:14 Dose: 40 mg Potassium Chloride (Potassium Chloride Oral Soln) 40 meq PO Q6H [facility] Stop: 09/19/18 04:16 Last Admin: 09/18/18 11:49 Dose: 40 meq Sucralfate (Carafate Oral Susp) 1 gm PO ACHS [facility] Last Admin: 08/18/18 22:07 Dose: 1 gm - Labs Labs: 09/18/18 04:20 09/18/18 04:20 PT 12.1 Seconds (9.8-13.1) 09/14/18 13:30 INR 1.1 09/14/18 13:30 APTT 24.8 Seconds (25.6-37.1) L 09/14/18 13:30 Assessment and Plan (1) Acute respiratory failure Status: Resolved (2) Hypertensive urgency Status: Resolved (3) DVT (deep venous thrombosis) Status: Acute (4) Cardiac arrest Status: Acute (5) AURORA (acute kidney injury) Status: Acute (6) NSTEMI (non-ST elevated myocardial infarction) Status: Acute (7) Type 2 diabetes mellitus with hyperglycemia Status: Chronic (8) Acute gastroenteritis Status: Resolved (9) Abdominal pain in female Status: Resolved (10) Gallbladder disease Status: Acute (11) Severe anemia Status: Resolved (12) Aspiration pneumonia Status: Acute (13) Pleural effusion Status: Acute - Assessment and Plan (Free Text) Plan: Continue Current Care
[2018-09-18] MEDS: DEXTROSE 5% IVPB SCH (18:44)
[2018-09-18] MEDS: AMPHOTERICIN B IVPB SCH (18:44)
[2018-09-18] MEDS: WATER IVPB SCH (18:44)
[2018-09-19] MEDS: Albuterol-Ipratrop 3 mg / 0.5 (3 ml) UD INH SCH ×4 (01:04→19:17)
[2018-09-19] MEDS: MethylPREDNISolone 40 mg Vial IV SCH ×3 (01:07→21:06)
[2018-09-19] MEDS: Meropenem 1 GM in Sodium Chloride 0.9% 100 ML IVPB SCH ×3 (01:09→18:15)
[2018-09-19] MEDS: Proshield Plus GEL TOP SCH ×3 (01:11→16:39)
[2018-09-19] MEDS: Acetaminophen 650mg/20.3ml solution UD NG PRN ×2 (03:26→21:20)
[2018-09-19] MEDS: Potassium Chloride 20 mEq/15 ml LIQ UD PO SCH (03:27)
[2018-09-19 04:41] LABS: ABG ALLEN TEST YES; ARTERIAL BLOOD GAS HCO3 21.5 mmol/L (21-28); ARTERIAL BLOOD GAS O2 SAT 99.5 % (95-98); ARTERIAL BLOOD GAS PCO2 27 mm/Hg (35-45); ARTERIAL BLOOD GAS PH 7.44 (7.35-7.45); ARTERIAL BLOOD GAS PO2 92 mm/Hg (80-100); ARTERIAL BLOOD GAS TCO2 19.1 mmol/L (22-28)
[2018-09-19] MEDS ORDERED: Sodium Chloride 0.45% 1,000 ML IV SCH (05:00)
[2018-09-19] MEDS: Insulin Lispro (humaLOG) 100 Units/ml Inj SC SCH ×4 (05:00→21:10)
[2018-09-19 07:53] LABS: BASO # 0.4 K/uL (0.0-0.2); BASO % 1.3 % (0.0-2.0); HEMOGLOBIN 8.5 g/dL (12.0-16.0); LYMPH # 0.2 K/uL (1.0-4.3); LYMPH % 0.7 % (20.0-40.0); MEAN CELL VOLUME 90.4 fl (81.0-99.0); MEAN CORPUSCULAR HEMOGLOBIN 28.3 pg (27.0-31.0); MEAN CORPUSCULAR HGB CONC 31.3 g/dL (33.0-37.0); MEAN PLATELET VOLUME 11.1 fl (7.2-11.7); MONO # 0.7 K/uL (0.0-0.8); MONO % 2.4 % (0.0-10.0); NEUT # 27.9 K/uL (1.8-7.0); NEUT % 95.6 % (50.0-75.0); NRBC % 0.2 % (0.0-0.0); PLATELET COUNT 203 K/uL (130-400); RBC 3.01 Mil/uL (3.80-5.20); RED CELL DISTRIBUTION WIDTH 22.3 % (11.5-14.5); WHITE BLOOD COUNT 29.2 K/uL (4.8-10.8)
[2018-09-19 08:00] LABS: ALB/GLOB RATIO 0.8 (1.0-2.1); ALBUMIN 1.9 g/dL (3.5-5.0); CALCIUM 6.7 mg/dL (8.4-10.2)
--- NOTE | 2018-09-19 08:18 | CP.CCUPN ---
CCU Subjective - Physician Review Subjective (Free Text): Sedated overnight and last evening with Morphine at approx. 10PM and Ativan at approx. 4 AM, remains at RASS neg 3. Breathing 22 on AC 14, SPo2 100% on 35% oxygen, ABG reviewed, still exhibits a significant lactate level. Febrile to 101.5F overnight, hemodynamics have been unremarkable despite current lactate level. Other vitals and I/O's reviewed, SBP 130s to 170s, HR 102; overall positive 1.5 L fluid balance. ROS: No other pertinent negs or positives on 10+ system review unobtainable on MV. PMSFH: DM II, HTN, Gastritis. All other Nursing and physician documentation reviewed to date; no new pertinent info noted relevant to current medical problems. EXAM- HEENT: no icterus, no gaze preference, Pupils 3 mm and reactive NECK: No JVD visible, supple, carotids equal upstroke bilat/no bruit CHEST: decreased BS at the bases, no wheezes audible HEART: regular, distant, S1S2, no rubs ABD: soft and nontender, no tympany, no guarding, no organomegaly, BS hypoactive EXT: trace LE edema, no calf tenderness or palpable cords, distal pulses intact and symmetrical. LUE PICC intact, no tenderness. NEURO: no focal motor weakness SKIN: no rashes, warm and dry LABS: WBC= 29.2 HGB= 8.5 PLTs= 203K 7.44/27/92 Na= 145 K= 5.0 IQ=494 HCO3= 18 BUN/Cr= 89/1.5 BS= 292 CXR: - ETT OK above kevon, bilateral pigtail catheters in place, no PTX seen, mild bibasilar interstitial chnages. ( my interp) IMPRESSION / MAJOR PROBLEMS NOW: 1. Acute Hypoxemic Resp Failure 2 non-resolving Pneumonia / Pneumonitis- unresponsive to multiple antibiotic / antifungal regimens and steroids. 2. Acute / Subacute NSTEMI 3. Coag neg Staph Bacteremia and VRE Bacteremia 4. s/p Azotemia / Dehydration, with Hypernatremia: Na levels slowly improving (recurrent free water deficit, has been on Diuretics) r/o AURORA ATN 5. Uncontrolled DM II PLAN: 1. FiO2 reduced to 35% for now. May still benefit from FOB/BAL for non- resolving pneumonia. Abx coverage changed again to Lisa/ Zyvox / AmphoB. Steroids weaned. 2. New ECHO results noted, any vegetations not definitively ruled out, other new findings noted; Covering [employer] has given clearance for Trach. 3. Ongoing free water, as per Nephro. Hypernatremia corrected. Glycemic co ntrol still not optimal. Levemir increased to 28 U QD. 4. Vasculitis w/u negative so far. 5. Trach still pending, cleared by Cardiology, now family undecided. 6. Will try to keep even fluid balance, MR on ECHO is worse. Lasix prn. CHELSEY consideration as per Cardios discretion. Stop IVFs with half saline and K @ 75 ml/hr. 7. Though narcotics and anxiolytics at very minimal dosing, HOLD unless excessive agitation, dysynchronous breathing affecting oxygenation, or other severe anxiety noted. 8. Significant amounts of pleural fluid drainage persist from bilateral pigtails.
[2018-09-19] MEDS: metroNIDAZOLE 500mg/100ml NS 100 ML IVPB SCH ×3 (08:44→16:43)
[2018-09-19] MEDS: Pantoprazole 40 mg Susp UD NG SCH (08:45)
--- NOTE | 2018-09-19 08:49 | RAD ---
Date of service: 09/19/2018 PROCEDURE: CHEST RADIOGRAPH, 1 VIEW HISTORY: ET tube COMPARISON: 09/18/2018. FINDINGS: The endotracheal tube terminates 3 cm proximal to the kevon. The nasogastric tube terminates in the stomach. LUNGS: The lungs are well inflated. There is bibasilar atelectasis. There is more confluent airspace disease in the left lower lobe. PLEURA: Stable position of bilateral chest tubes. Suspect small effusions. CARDIOVASCULAR: Mild cardiomegaly. There are aortic atherosclerotic calcifications present. OSSEOUS STRUCTURES: Within normal limits for the patient's age. VISUALIZED UPPER ABDOMEN: Normal. OTHER FINDINGS: None. IMPRESSION: Endotracheal tube terminates 3 cm proximal to the kevon. Stable position of bilateral chest tubes with suspected residual small effusions. Confluent airspace disease in the left lower lobe may represent superimposed pneumonia.
[2018-09-19] MEDS: Insulin Detemir 100 Units/ml Inj SC SCH ×2 (09:44→21:09)
[2018-09-19 10:30] LABS: BANDS 1 % (0-2); LYMPHOCYTE 2 % (20-50); MONOCYTE 3 % (0-10); NEUTROPHIL 94 % (42-75); PLATELET ESTIMATE NORMAL (NORMAL); TOTAL CELLS COUNTED 100
[2018-09-19 10:31] LABS: ANISOCYTOSIS MARKED
[2018-09-19 10:32] LABS: HYPOCHROMIC SLIGHT; LARGE PLATELETS PRESENT; OVALOCYTES SLIGHT; PLATELET CLUMPS PRESENT
[2018-09-19] MEDS: Enoxaparin 40 mg Syringe SC SCH (10:50)
[2018-09-19] MEDS: WATER IVPB SCH (11:04)
[2018-09-19] MEDS: AMPHOTERICIN B IVPB SCH (11:04)
[2018-09-19] MEDS: DEXTROSE 5% IVPB SCH (11:04)
[2018-09-19] MEDS: Acetaminophen 650mg/20.3ml solution UD PO PRN (12:18)
--- NOTE | 2018-09-19 14:23 | CP.PCM.PN ---
Subjective - Date & Time of Evaluation Date of Evaluation: 09/19/18 Time of Evaluation: 14:22 - Subjective Subjective: Nephrology Consultation Note Assessment: critical acute kidney injury related to multifactorial including sepsis Respiratory failure Sepsis [place] hypernatremia fever leukocytosis hypokalemia Plan no acute need for dialysis continue free water supplements management of infection antibiotics as per renal dose Respiratory management Kidney function fluctuating creatinine. pt started on amphotericin B, will need to monitor kidney fxn while on it. supplement lytes as needed maintain hemodynamics stable Dose meds/antibiotics for reduced GFR. Glycemic control Further work up for as per primary team Thanks for allowing me to participate in care of your patient. Will follow patient with you. Please call if any Qs. had d/w team Dr Fabian Gallagher Office: [phone] Subjective: Noted events overnight. Patients intubated. unable to obtain ROS Physical Examination: General Appearance: orally intubated and non communicating. restless today Vitals reviewed and noted as below Head; Atraumatic, normocephalic Neck; supple no lymphadenopathy, no thyromegaly or bruit Lungs: Normal respiratory rate/effort. Breath sounds bilateral reduced at bases Heart: Normal rate. s1s2 normal. No rub or gallop. Extremities: no edema. No varicose veins Neurological: Patient is non communicating Skin: Warm and dry. Normal turgor. No rash. Palpitation: Normal elasticity for age Abdomen: Abdomen is soft. Bowel sounds +. There is no abdominal tenderness, no guarding/rigidity no organomegaly Psych: unable MSK: no joint tenderness or swelling. Digits and nails normal, no deformity : kidney or bladder not palpable Labs/imaging reviewed. Past medical history, past surgical history, family history, social history, allergy reviewed and noted as below Family hx: no hx of CKD. Rest non-contributory Objective - Vital Signs/Intake and Output Vital Signs (last 24 hours): Temp Pulse Resp BP Pulse Ox 98.6 F 102 H 29 H 148/72 100 09/19/18 12:00 09/19/18 14:00 09/19/18 14:00 09/19/18 14:00 09/19/18 14:00 Intake and Output: 09/19/18 09/19/18 06:59 18:59 Intake Total 2338 2090 Output Total 1350 500 Balance 988 1590 - Medications Medications: Current Medications Acetaminophen (Tylenol 650mg/20.3ml Solution Ud) 650 mg NG Q6 PRN PRN Reason: Temperature Last Admin: 09/19/18 03:26 Dose: 650 mg Acetaminophen (Tylenol 650mg/20.3ml Solution Ud) 650 mg PO Q6 PRN PRN Reason: Pain, Mild (1-3) Last Admin: 09/19/18 12:18 Dose: 650 mg Albuterol/Ipratropium (Duoneb 3 Mg/0.5 Mg (3 Ml) Ud) 3 ml INH RQ6 [facility] Last Admin: 09/19/18 13:02 Dose: 3 ml Aspirin (Aspirin Chewable) 81 mg NG DAILY [facility] Last Admin: 09/12/18 08:18 Dose: 81 mg Dimethicone (Proshield Plus Skin Protectant) 1 applic TOP Q8 [facility] Last Admin: 09/19/18 08:46 Dose: 1 applic Enoxaparin Sodium (Lovenox) 40 mg SC DAILY [facility]; Protocol Last Admin: 09/19/18 10:50 Dose: 40 mg Hydralazine HCl (Apresoline) 10 mg IV Q6 PRN PRN Reason: Systolic Blood Pressure Last Admin: 09/19/18 12:14 Dose: 10 mg Meropenem 1 gm/ Sodium (Chloride) 100 mls @ 100 mls/hr IVPB Q8 [facility]; Protocol Last Admin: 09/19/18 09:46 Dose: 100 mls/hr Metronidazole (Flagyl 500mg/100ml Ns) 100 mls @ 100 mls/hr IVPB Q8 [facility]; Protocol Last Admin: 09/19/18 08:44 Dose: 100 mls/hr Amphotericin B 70 mg/ Dextrose 250 mls @ 42 mls/hr IVPB DAILY [facility]; Protocol Last Admin: 09/19/18 11:04 Dose: 42 mls/hr Insulin Detemir (Levemir) 28 units SC Q12 [facility] Last Admin: 09/19/18 09:44 Dose: 28 u Insulin Human Lispro (Humalog) 0 units SC Q6 [facility]; Protocol Last Admin: 09/19/18 10:55 Dose: 2 unit Methylprednisolone (Solu-Medrol) 20 mg IV Q12 [facility] Last Admin: 09/19/18 08:48 Dose: 20 mg Metoprolol Tartrate (Lopressor) 25 mg PO Q6 [facility] Last Admin: 09/19/18 09:04 Dose: 25 mg Nystatin (Nystop Topical Powder) 1 applic TOP TID [facility] Last Admin: 09/19/18 08:47 Dose: 1 applic Pantoprazole Sodium (Protonix Susp) 40 mg NG DAILY [facility] Last Admin: 09/19/18 08:45 Dose: 40 mg Sucralfate (Carafate Oral Susp) 1 gm PO ACHS [facility] Last Admin: 08/18/18 22:07 Dose: 1 gm - Labs Labs: 09/19/18 07:30 09/19/18 07:30 PT 12.1 Seconds (9.8-13.1) 09/14/18 13:30 INR 1.1 09/14/18 13:30 APTT 24.8 Seconds (25.6-37.1) L 09/14/18 13:30
[2018-09-20] MEDS: metroNIDAZOLE 500mg/100ml NS 100 ML IVPB SCH ×2 (00:28→10:10)
[2018-09-20] MEDS: Meropenem 1 GM in Sodium Chloride 0.9% 100 ML IVPB SCH ×2 (00:28→08:33)
[2018-09-20] MEDS: Proshield Plus GEL TOP SCH ×3 (00:29→16:08)
[2018-09-20] MEDS: Albuterol-Ipratrop 3 mg / 0.5 (3 ml) UD INH SCH ×5 (01:00→21:12)
--- NOTE | 2018-09-20 01:44 | CP.PCM.PN ---
Subjective - Date & Time of Evaluation Date of Evaluation: 09/19/18 Time of Evaluation: 22:15 - Subjective Subjective: Seen and examined at the bed side. Sedated Overnight with Ativan and Morphine. On MV AC 14 PEEP 5 and FIO2 35% sat 100%. Spiked fever 101.5 and high Lactate levell. B/L Pigtail draining straw colored pleural fluid. Objective - Vital Signs/Intake and Output Vital Signs (last 24 hours): Temp Pulse Resp BP Pulse Ox 100.4 F H 81 18 113/53 L 100 09/20/18 00:00 09/20/18 00:00 09/20/18 00:00 09/20/18 00:00 09/20/18 00:00 Intake and Output: 09/19/18 09/20/18 18:59 06:59 Intake Total 3030 Output Total 1470 Balance 1560 - Medications Medications: Current Medications Acetaminophen (Tylenol 650mg/20.3ml Solution Ud) 650 mg NG Q6 PRN PRN Reason: Temperature Last Admin: 09/19/18 21:20 Dose: 650 mg Acetaminophen (Tylenol 650mg/20.3ml Solution Ud) 650 mg PO Q6 PRN PRN Reason: Pain, Mild (1-3) Last Admin: 09/19/18 12:18 Dose: 650 mg Albuterol/Ipratropium (Duoneb 3 Mg/0.5 Mg (3 Ml) Ud) 3 ml INH RQ6 [facility] Last Admin: 09/19/18 19:17 Dose: 3 ml Aspirin (Aspirin Chewable) 81 mg NG DAILY [facility] Last Admin: 09/12/18 08:18 Dose: 81 mg Dimethicone (Proshield Plus Skin Protectant) 1 applic TOP Q8 [facility] Last Admin: 09/20/18 00:29 Dose: 1 applic Enoxaparin Sodium (Lovenox) 40 mg SC DAILY [facility]; Protocol Last Admin: 09/19/18 10:50 Dose: 40 mg Hydralazine HCl (Apresoline) 10 mg IV Q6 PRN PRN Reason: Systolic Blood Pressure Last Admin: 09/19/18 12:14 Dose: 10 mg Meropenem 1 gm/ Sodium (Chloride) 100 mls @ 100 mls/hr IVPB Q8 [facility]; Protocol Last Admin: 09/20/18 00:28 Dose: 100 mls/hr Metronidazole (Flagyl 500mg/100ml Ns) 100 mls @ 100 mls/hr IVPB Q8 [facility]; Protocol Last Admin: 09/20/18 00:28 Dose: 100 mls/hr Amphotericin B 70 mg/ Dextrose 250 mls @ 42 mls/hr IVPB DAILY [facility]; Protocol Last Admin: 09/19/18 11:04 Dose: 42 mls/hr Insulin Detemir (Levemir) 28 units SC Q12 [facility] Last Admin: 09/19/18 21:09 Dose: 28 u Insulin Human Lispro (Humalog) 0 units SC Q6 [facility]; Protocol Last Admin: 09/19/18 21:10 Dose: 4 unit Lorazepam (Ativan) 0.5 mg IVP Q8 PRN PRN Reason: Agitation Last Admin: 09/19/18 17:49 Dose: 0.5 mg Methylprednisolone (Solu-Medrol) 20 mg IV Q12 [facility] Last Admin: 09/19/18 21:06 Dose: 20 mg Metoprolol Tartrate (Lopressor) 25 mg PO Q6 [facility] Last Admin: 09/19/18 21:06 Dose: 25 mg Nystatin (Nystop Topical Powder) 1 applic TOP TID [facility] Last Admin: 09/19/18 16:38 Dose: 1 applic Pantoprazole Sodium (Protonix Susp) 40 mg NG DAILY [facility] Last Admin: 09/19/18 08:45 Dose: 40 mg Sucralfate (Carafate Oral Susp) 1 gm PO ACHS [facility] Last Admin: 08/18/18 22:07 Dose: 1 gm - Labs Labs: 09/19/18 07:30 09/19/18 07:30 PT 12.1 Seconds (9.8-13.1) 09/14/18 13:30 INR 1.1 09/14/18 13:30 APTT 24.8 Seconds (25.6-37.1) L 09/14/18 13:30 Assessment and Plan (1) Acute respiratory failure Assessment & Plan: on MV Status: Resolved (2) Hypertensive urgency Status: Resolved (3) DVT (deep venous thrombosis) Status: Acute (4) Cardiac arrest Status: Acute (5) AURORA (acute kidney injury) Status: Acute (6) NSTEMI (non-ST elevated myocardial infarction) Status: Acute (7) Type 2 diabetes mellitus with hyperglycemia Status: Chronic (8) Abdominal pain in female Status: Resolved (9) Gallbladder disease Status: Acute (10) Severe anemia Status: Resolved (11) Aspiration pneumonia Status: Acute (12) Pleural effusion Assessment & Plan: S/P Pigtail Status: Acute - Assessment and Plan (Free Text) Plan: Poor Prognosis C/w MV PRN Sedation discontinued by Cupola Tapper Continue free water supplements C/w IV Antibiotics and Antifungal Monitor I/O Supplement Lytes as needed Cupola Tapper, ID and Nephrology Input Appreciated
[2018-09-20] MEDS ORDERED: Sodium Chloride 0.9% 500 ML IV ONE ×3 (02:05→06:22)
[2018-09-20] MEDS: Insulin Lispro (humaLOG) 100 Units/ml Inj SC SCH ×3 (04:11→16:01)
[2018-09-20 05:48] LABS: BASO # 0.1 K/uL (0.0-0.2); BASO % 0.2 % (0.0-2.0); HEMOGLOBIN 7.6 g/dL (12.0-16.0); LYMPH # 0.4 K/uL (1.0-4.3); LYMPH % 1.2 % (20.0-40.0); MEAN CELL VOLUME 91.8 fl (81.0-99.0); MEAN CORPUSCULAR HEMOGLOBIN 28.5 pg (27.0-31.0); MEAN CORPUSCULAR HGB CONC 31.1 g/dL (33.0-37.0); MEAN PLATELET VOLUME 12.8 fl (7.2-11.7); MONO # 1.2 K/uL (0.0-0.8); MONO % 3.5 % (0.0-10.0); NEUT # 33.6 K/uL (1.8-7.0); NEUT % 95.1 % (50.0-75.0); NRBC % 0.2 % (0.0-0.0); PLATELET COUNT 98 K/uL (130-400); RBC 2.67 Mil/uL (3.80-5.20); RED CELL DISTRIBUTION WIDTH 22.7 % (11.5-14.5); WHITE BLOOD COUNT 35.3 K/uL (4.8-10.8)
[2018-09-20 06:16] LABS: ALB/GLOB RATIO 0.7 (1.0-2.1); ALBUMIN 1.5 g/dL (3.5-5.0); CALCIUM 6.3 mg/dL (8.4-10.2)
[2018-09-20] MEDS: MethylPREDNISolone 40 mg Vial IV SCH (08:38)
[2018-09-20] MEDS: Enoxaparin 40 mg Syringe SC SCH (08:40)
[2018-09-20] MEDS: Pantoprazole 40 mg Susp UD NG SCH (08:41)
[2018-09-20] MEDS: Insulin Detemir 100 Units/ml Inj SC SCH (08:44)
[2018-09-20 09:01] LABS: ANISOCYTOSIS SLIGHT; BANDS 5 % (0-2); LYMPHOCYTE 4 % (20-50); MONOCYTE 1 % (0-10); NEUTROPHIL 90 % (42-75); PLATELET ESTIMATE DECREASED (NORMAL); TOTAL CELLS COUNTED 100
[2018-09-20 09:02] LABS: HYPOCHROMIC SLIGHT; POIKILOCYTOSIS SLIGHT
[2018-09-20] MEDS ORDERED: Lactated Ringer's 1,000 ML IV SCH (09:45)
[2018-09-20] MEDS: Albumin Human 5% (12.5 gm/250 ml) IV SCH ×2 (10:21→14:12)
[2018-09-20] MEDS: Vancomycin 500 mg (Oral/Rectal USE) PO SCH ×2 (10:27→16:21)
[2018-09-20] MEDS: AMPHOTERICIN B IVPB SCH (11:46)
[2018-09-20] MEDS: WATER IVPB SCH (11:46)
[2018-09-20] MEDS: DEXTROSE 5% IVPB SCH (11:46)
--- NOTE | 2018-09-20 14:02 | CP.PCM.PN ---
Subjective - Date & Time of Evaluation Date of Evaluation: 09/20/18 Time of Evaluation: 11:00 - Subjective Subjective: Nephrology Consultation Note Assessment: critical acute kidney injury related to multifactorial including sepsis HAGMA with abnormal LFT ? hypoperfusion, low BP related, lactic acidosis Respiratory failure Sepsis AR hypernatremia fever leukocytosis hypokalemia Plan no acute need for dialysis started IVF as 0.45% saline with 75 meq bicarb management of infection antibiotics as per renal dose Respiratory management Kidney function fluctuating creatinine. pt started on amphotericin B, will need to monitor kidney fxn while on it. supplement lytes as needed maintain hemodynamics stable. may need pressors. Dose meds/antibiotics for reduced GFR. Glycemic control Further work up for as per primary team Thanks for allowing me to participate in care of your patient. Will follow patient with you. Please call if any Qs. had d/w team Dr Fabian Gallagher Office: [phone] Subjective: Noted events overnight. Patients intubated. unable to obtain ROS. increased stool outpt as per nursing staff Physical Examination: General Appearance: orally intubated and non communicating. restless today Vitals reviewed and noted as below Head; Atraumatic, normocephalic Neck; supple no lymphadenopathy, no thyromegaly or bruit Lungs: Normal respiratory rate/effort. Breath sounds bilateral reduced at bases Heart: Normal rate. s1s2 normal. No rub or gallop. Extremities: no edema. No varicose veins Neurological: Patient is non communicating Skin: Warm and dry. Normal turgor. No rash. Palpitation: Normal elasticity for age Abdomen: Abdomen is soft. Bowel sounds +. There is no abdominal tenderness, no guarding/rigidity no organomegaly Psych: unable MSK: no joint tenderness or swelling. Digits and nails normal, no deformity : kidney or bladder not palpable Labs/imaging reviewed. Past medical history, past surgical history, family history, social history, allergy reviewed and noted as below Family hx: no hx of CKD. Rest non-contributory Objective - Vital Signs/Intake and Output Vital Signs (last 24 hours): Temp Pulse Resp BP Pulse Ox 99.3 F 80 20 101/44 L 100 09/20/18 12:00 09/20/18 13:00 09/20/18 13:00 09/20/18 13:00 09/20/18 13:00 Intake and Output: 09/20/18 09/20/18 06:59 18:59 Intake Total 3030 440 Output Total 100 400 Balance 2930 40 - Medications Medications: Current Medications Acetaminophen (Tylenol 650mg/20.3ml Solution Ud) 650 mg NG Q6 PRN PRN Reason: Temperature Last Admin: 09/19/18 21:20 Dose: 650 mg Acetaminophen (Tylenol 650mg/20.3ml Solution Ud) 650 mg PO Q6 PRN PRN Reason: Pain, Mild (1-3) Last Admin: 09/19/18 12:18 Dose: 650 mg Albumin Human (Albumin Human 5% (12.5 Gm/250 Ml)) 12.5 gm IV Q5H [facility] Stop: 09/20/18 14:46 Last Admin: 09/20/18 10:21 Dose: 12.5 gm Albuterol/Ipratropium (Duoneb 3 Mg/0.5 Mg (3 Ml) Ud) 3 ml INH RQ6 [facility] Last Admin: 09/20/18 13:00 Dose: 3 ml Aspirin (Aspirin Chewable) 81 mg NG DAILY [facility] Last Admin: 09/12/18 08:18 Dose: 81 mg Dimethicone (Proshield Plus Skin Protectant) 1 applic TOP Q8 [facility] Last Admin: 09/20/18 08:36 Dose: 1 applic Enoxaparin Sodium (Lovenox) 40 mg SC DAILY [facility]; Protocol Last Admin: 09/20/18 08:40 Dose: 40 mg Hydralazine HCl (Apresoline) 10 mg IV Q6 PRN PRN Reason: Systolic Blood Pressure Last Admin: 09/19/18 12:14 Dose: 10 mg Meropenem 1 gm/ Sodium (Chloride) 100 mls @ 100 mls/hr IVPB Q8 [facility]; Protocol Last Admin: 09/20/18 08:33 Dose: 100 mls/hr Vasopressin 100 units/ Sodium (Chloride) 105 mls @ 1.89 mls/hr IV .Q24H [facility]; Protocol Sodium Bicarbonate 75 meq/ (Sodium Chloride) 1,075 mls @ 75 mls/hr IV .[id number] [facility] Stop: 09/22/18 11:46 Insulin Detemir (Levemir) 28 units SC Q12 [facility] Last Admin: 09/20/18 08:44 Dose: 28 u Insulin Human Lispro (Humalog) 0 units SC Q6 [facility]; Protocol Last Admin: 09/20/18 11:27 Dose: Not Given Lorazepam (Ativan) 0.5 mg IVP Q8 PRN PRN Reason: Agitation Last Admin: 09/19/18 17:49 Dose: 0.5 mg Methylprednisolone (Solu-Medrol) 20 mg IV Q12 [facility] Last Admin: 09/20/18 08:38 Dose: 20 mg Metoprolol Tartrate (Lopressor) 25 mg PO Q6 [facility] Last Admin: 09/20/18 10:40 Dose: Not Given Nystatin (Nystop Topical Powder) 1 applic TOP TID [facility] Last Admin: 09/20/18 13:47 Dose: 1 applic Pantoprazole Sodium (Protonix Susp) 40 mg NG DAILY [facility] Last Admin: 09/20/18 08:41 Dose: 40 mg Sucralfate (Carafate Oral Susp) 1 gm PO ACHS [facility] Last Admin: 08/18/18 22:07 Dose: 1 gm Vancomycin HCl (Vancocin (Oral/Rectal Use)) 250 mg PO Q8 [facility]; Protocol Last Admin: 09/20/18 10:27 Dose: 250 mg - Labs Labs: 09/20/18 05:13 09/20/18 05:13 PT 12.1 Seconds (9.8-13.1) 09/14/18 13:30 INR 1.1 09/14/18 13:30 APTT 24.8 Seconds (25.6-37.1) L 09/14/18 13:30
--- NOTE | 2018-09-20 14:09 | RAD ---
Date of service: 09/20/2018 HISTORY: chest tubes COMPARISON: Portable chest 09/19/2018 4:19 a.m.. FINDINGS: LUNGS: Endotracheal and nasogastric tubes do not appear significantly changed in position as well as bilateral pleural drainage catheters. Left PICC unchanged in position. Limited left infrahilar airspace disease suspected with remaining lung bertrand clear. PLEURA: No significant pleural effusion identified, no pneumothorax apparent. CARDIOVASCULAR: Calcific atherosclerotic changes are seen related to the thoracic aorta. Normal cardiac size. No pulmonary vascular congestion. OSSEOUS STRUCTURES: No significant abnormalities. VISUALIZED UPPER ABDOMEN: Normal. OTHER FINDINGS: None. IMPRESSION: Limited left infrahilar airspace disease suspected. Remaining lung bertrand clear. Tubes and catheters as discussed above. No interval pulmonary vascular congestion.
--- NOTE | 2018-09-20 14:49 | CP.CCUPN ---
CCU Subjective - Physician Review Events Since Last Encounter (Free Text): 09/20/18 14:03 73 yo F. PMHx HTN, DM. p/w possible acute cholecystitis (08/13/18). hospital course c/b cardiac arrest, NSTEMI, RLE DVT, unresolving bilateral multifocal pneumonia with recurrent extubation failures x 3. Neuro: ativan 05mg IV q8h prn for agitation Pulm: chronic respiratory failure, on vent. awaiting trach placement. placement slowed by daughter's indecisiveness and recurrent septic shock episodes. CV: relatively hypotensive, patient normally hypertensive. Holding antihypertensive meds metoprolol and hydralazine. Hem: anemia of critical illness Renal: oliguric acute kidney injury, starting albumin drip and fluids, 1/2NS+75 SB@75, to see if urine output picks up. if not may need to press higher, considering starting vasopressin. Endo: DM type 2, continue Levemir 28 units q12h. SISS for coverage GI: NPO, changing to Vital for diarrhea. ID: severe sepsis from multifocal pneumonia, continue Meropenem. Starting Vanco PO, high suspicion for c.diff colitis, despite negative stool toxin antigen. DVT proph - lovenox GI proph - protonix hughes for strict I/O's during acute illness Code status - full code Critical Care Time spent 35 minutes Multi-disciplinary rounds were performed with house staff, nursing, speech therapy, respiratory therapy, pharmacy and nutrition with integrated input from the primary team/attending and other consulting services. The documented time is cumulative and includes review of patient data/exams/labs/chart review and examination of the patient on rounds and throughout the day; time is exclusive of any procedures or teaching time. CCU Objective - Vital Signs / Intake & Output Vital Signs (Last 4 hours): Vital Signs Temp Pulse Resp BP Pulse Ox 09/20/18 14:00 87 21 96/52 L 100 09/20/18 13:00 80 20 101/44 L 100 09/20/18 12:00 99.3 F 77 20 96/39 L 100 09/20/18 11:00 78 22 98/56 L 98 09/20/18 10:40 85 94/44 L Intake and Output (Last 8hrs): Intake & Output 09/19/18 09/20/18 09/20/18 22:59 06:59 14:59 Intake Total 1410 2560 690 Output Total 1010 60 400 Balance 400 2500 290 Weight 176 lb 14.4 oz Intake: IV 20 1010 Intake, Piggyback 200 1000 200 Oral 500 Tube Feeding 200 300 Albumin 250 Free Water Flush 490 250 240 Output: Chest Tube Drainage 155 Left Posterior Chest 5 Right Posterior Chest 150 Urine 740 60 Urethral (Hughes) 740 60 Stool 100 400 Emesis 15 0 - Physical Exam Head: Positive for: Atraumatic, Normocephalic Pupils: Positive for: PERRL. Negative for: Sluggish, Non-Reactive, Pinpoint Conjunctiva: Positive for: Normal. Negative for: Injected, Icteric Mouth: Positive for: Moist Mucous Membranes Nose (External): Positive for: Atraumatic Neck: Positive for: Normal Range of Motion Respiratory/Chest: Positive for: Rhonchi Cardiovascular: Positive for: Regular Rate and Rhythm Abdomen: Positive for: Normal Bowel Sounds. Negative for: Tenderness, Distention, Peritoneal Signs Upper Extremity: Positive for: Normal Inspection, NORMAL PULSES, Capillary Refill < 2s. Negative for: Cyanosis, Edema Lower Extremity: Positive for: Normal Inspection. Negative for: Edema, CALF TENDERNESS Neurological: Positive for: Other (on ventilator, opens eyes to verbal stimuli). Negative for: GCS=15, CN II-XII Intact, Speech Normal, Motor Func Grossly Intact, Normal Sensory Function, Normal Cerebellar Funct, Norm Deep Tendon Reflexes, Gait Normal, Memory Normal, Normal 2Pt Descrimination Psychiatric: Negative for: Alert, Oriented x 3 - Medications Active Medications: Active Medications Generic Name Dose Route Start Last Admin Trade Name Jhonnyq PRN Reason Stop Dose Admin Acetaminophen 650 mg 08/24/18 10:29 09/19/18 21:20 Tylenol 650mg/20.3ml Solution Ud NG 650 mg Q6 PRN Administration Temperature Acetaminophen 650 mg 08/31/18 19:57 09/19/18 12:18 Tylenol 650mg/20.3ml Solution Ud PO 650 mg Q6 PRN Administration Pain, Mild (1-3) Albumin Human 12.5 gm 09/20/18 09:45 09/20/18 10:21 Albumin Human 5% (12.5 Gm/250 Ml) IV 09/20/18 14:46 12.5 gm Q5H [facility] Administration Albuterol/Ipratropium 3 ml 09/08/18 14:00 09/20/18 13:00 Duoneb 3 Mg/0.5 Mg (3 Ml) Ud INH 3 ml RQ6 [facility] Administration Aspirin 81 mg 09/06/18 09:00 09/12/18 08:18 Aspirin Chewable NG 81 mg DAILY [facility] Administration Dimethicone 1 applic 09/05/18 17:00 09/20/18 08:36 Proshield Plus Skin Protectant TOP 1 applic Q8 [facility] Administration Enoxaparin Sodium 40 mg 09/19/18 09:45 09/20/18 08:40 Lovenox SC 40 mg DAILY [facility] Administration Protocol Hydralazine HCl 10 mg 09/07/18 18:38 09/19/18 12:14 Apresoline IV 10 mg Q6 PRN Administration Systolic Blood Pressure Meropenem 1 gm/ Sodium 100 mls @ 100 mls/hr 09/14/18 17:00 09/20/18 08:33 Chloride IVPB 100 mls/hr Q8 [facility] Administration Protocol Vasopressin 100 units/ Sodium 105 mls @ 1.89 mls/hr 09/20/18 09:45 Chloride IV .Q24H [facility] Protocol 0.03 UNITS/MIN Sodium Bicarbonate 75 meq/ 1,075 mls @ 75 mls/hr 09/20/18 11:45 Sodium Chloride IV 09/22/18 11:46 .[id number] [facility] Insulin Detemir 28 units 09/19/18 09:00 09/20/18 08:44 Levemir SC 28 u Q12 [facility] Administration Insulin Human Lispro 0 units 09/12/18 10:00 09/20/18 11:27 Humalog SC Not Given Q6 [facility] Protocol Lorazepam 0.5 mg 09/19/18 17:33 09/19/18 17:49 Ativan IVP 0.5 mg Q8 PRN Administration Agitation Methylprednisolone 20 mg 09/19/18 09:00 09/20/18 08:38 Solu-Medrol IV 20 mg Q12 [facility] Administration Metoprolol Tartrate 25 mg 09/09/18 22:00 09/20/18 10:40 Lopressor PO Not Given Q6 [facility] Nystatin 1 applic 09/05/18 17:00 09/20/18 13:47 Nystop Topical Powder TOP 1 applic TID [facility] Administration Pantoprazole Sodium 40 mg 09/01/18 14:00 09/20/18 08:41 Protonix Susp NG 40 mg DAILY [facility] Administration Sucralfate 1 gm 08/14/18 20:30 08/18/18 22:07 Carafate Oral Susp PO 1 gm ACHS [facility] Administration Vancomycin HCl 250 mg 09/20/18 09:45 09/20/18 10:27 Vancocin (Oral/Rectal Use) PO 250 mg Q8 [facility] Administration Protocol - Patient Studies Lab Studies: Microbiology Studies 09/16/18 18:32 Blood Culture - Preliminary Blood-Venous NO GROWTH AFTER 3 DAYS 09/16/18 18:22 Blood Culture - Preliminary Blood-Venous NO GROWTH AFTER 3 DAYS Lab Studies 09/20/18 09/20/18 09/20/18 Range/Units 10:30 05:13 05:13 WBC 35.3 H (4.8-10.8) K/uL RBC 2.67 L (3.80-5.20) Mil/uL Hgb 7.6 L (12.0-16.0) g/dL Hct 24.5 L (34.0-47.0) % MCV 91.8 (81.0-99.0) fl MCH 28.5 (27.0-31.0) pg MCHC 31.1 L (33.0-37.0) g/dL RDW 22.7 H (11.5-14.5) % Plt Count 98 L D (130-400) K/uL MPV 12.8 H (7.2-11.7) fl Neut % (Auto) 95.1 H (50.0-75.0) % Lymph % (Auto) 1.2 L (20.0-40.0) % Loup % (Auto) 3.5 (0.0-10.0) % Eos % (Auto) 0.0 (0.0-4.0) % Baso % (Auto) 0.2 (0.0-2.0) % Neut # (Auto) 33.6 H (1.8-7.0) K/uL Lymph # (Auto) 0.4 L (1.0-4.3) K/uL Loup # (Auto) 1.2 H (0.0-0.8) K/uL Eos # (Auto) 0.0 (0.0-0.7) K/uL Baso # (Auto) 0.1 (0.0-0.2) K/uL Neutrophils % (Manual) 90 H (42-75) % Band Neutrophils % 5 H (0-2) % Lymphocytes % (Manual) 4 L (20-50) % Monocytes % (Manual) 1 (0-10) % Platelet Estimate Decreased L (NORMAL) Hypochromasia (manual) Slight Poikilocytosis (manual Slight Anisocytosis (manual) Slight Sodium 144 (132-148) mmol/l Potassium 5.1 H (3.6-5.0) MMOL/L Chloride 122 H (98-107) mmol/L Carbon Dioxide 10 L* D (22-30) mmol/L Anion Gap 17 (10-20) BUN 99 H (7-17) mg/dl Creatinine 1.9 H (0.7-1.2) mg/dl Est GFR ( Amer) 31 Est GFR (Non-Af Amer) 26 POC Glucose (mg/dL) (65-110) mg/dL Random Glucose 106 H (65-105) mg/dL Calcium 6.3 L (8.4-10.2) mg/dL Total Bilirubin 0.8 (0.2-1.3) mg/dl AST 2291 H (14-36) U/L ALT 1259 H (9-52) U/L Alkaline Phosphatase 80 (38-126) U/L Total Protein 3.5 L (6.3-8.2) G/DL Albumin 1.5 L D (3.5-5.0) g/dL Globulin 2.1 L (2.2-3.9) gm/dL Albumin/Globulin Ratio 0.7 L (1.0-2.1) C. difficile Ag & Toxin Negative (NEGATIVE) 09/20/18 09/19/18 09/19/18 Range/Units 05:09 21:08 16:37 WBC (4.8-10.8) K/uL RBC (3.80-5.20) Mil/uL Hgb (12.0-16.0) g/dL Hct (34.0-47.0) % MCV (81.0-99.0) fl MCH (27.0-31.0) pg MCHC (33.0-37.0) g/dL RDW (11.5-14.5) % Plt Count (130-400) K/uL MPV (7.2-11.7) fl Neut % (Auto) (50.0-75.0) % Lymph % (Auto) (20.0-40.0) % Loup % (Auto) (0.0-10.0) % Eos % (Auto) (0.0-4.0) % Baso % (Auto) (0.0-2.0) % Neut # (Auto) (1.8-7.0) K/uL Lymph # (Auto) (1.0-4.3) K/uL Loup # (Auto) (0.0-0.8) K/uL Eos # (Auto) (0.0-0.7) K/uL Baso # (Auto) (0.0-0.2) K/uL Neutrophils % (Manual) (42-75) % Band Neutrophils % (0-2) % Lymphocytes % (Manual) (20-50) % Monocytes % (Manual) (0-10) % Platelet Estimate (NORMAL) Hypochromasia (manual) Poikilocytosis (manual Anisocytosis (manual) Sodium (132-148) mmol/l Potassium (3.6-5.0) MMOL/L Chloride (98-107) mmol/L Carbon Dioxide (22-30) mmol/L Anion Gap (10-20) BUN (7-17) mg/dl Creatinine (0.7-1.2) mg/dl Est GFR ( Amer) Est GFR (Non-Af Amer) POC Glucose (mg/dL) 141 H 202 H 310 H (65-110) mg/dL Random Glucose (65-105) mg/dL Calcium (8.4-10.2) mg/dL Total Bilirubin (0.2-1.3) mg/dl AST (14-36) U/L ALT (9-52) U/L Alkaline Phosphatase (38-126) U/L Total Protein (6.3-8.2) G/DL Albumin (3.5-5.0) g/dL Globulin (2.2-3.9) gm/dL Albumin/Globulin Ratio (1.0-2.1) C. difficile Ag & Toxin (NEGATIVE) Laboratory Results - last 24 hr 09/19/18 09/19/18 09/20/18 16:37 21:08 05:09 WBC RBC Hgb Hct MCV MCH MCHC RDW Plt Count MPV Neut % (Auto) Lymph % (Auto) Loup % (Auto) Eos % (Auto) Baso % (Auto) Neut # (Auto) Lymph # (Auto) Loup # (Auto) Eos # (Auto) Baso # (Auto) Neutrophils % (Manual) Band Neutrophils % Lymphocytes % (Manual) Monocytes % (Manual) Platelet Estimate Hypochromasia (manual) Poikilocytosis (manual Anisocytosis (manual) Sodium Potassium Chloride Carbon Dioxide Anion Gap BUN Creatinine Est GFR ( Amer) Est GFR (Non-Af Amer) POC Glucose (mg/dL) 310 H 202 H 141 H Random Glucose Calcium Total Bilirubin AST ALT Alkaline Phosphatase Total Protein Albumin Globulin Albumin/Globulin Ratio C. difficile Ag & Toxin 09/20/18 09/20/18 09/20/18 05:13 05:13 10:30 WBC 35.3 H RBC 2.67 L Hgb 7.6 L Hct 24.5 L MCV 91.8 MCH 28.5 MCHC 31.1 L RDW 22.7 H Plt Count 98 L D MPV 12.8 H Neut % (Auto) 95.1 H Lymph % (Auto) 1.2 L Loup % (Auto) 3.5 Eos % (Auto) 0.0 Baso % (Auto) 0.2 Neut # (Auto) 33.6 H Lymph # (Auto) 0.4 L Loup # (Auto) 1.2 H Eos # (Auto) 0.0 Baso # (Auto) 0.1 Neutrophils % (Manual) 90 H Band Neutrophils % 5 H Lymphocytes % (Manual) 4 L Monocytes % (Manual) 1 Platelet Estimate Decreased L Hypochromasia (manual) Slight Poikilocytosis (manual Slight Anisocytosis (manual) Slight Sodium 144 Potassium 5.1 H Chloride 122 H Carbon Dioxide 10 L* D Anion Gap 17 BUN 99 H Creatinine 1.9 H Est GFR ( Amer) 31 Est GFR (Non-Af Amer) 26 POC Glucose (mg/dL) Random Glucose 106 H Calcium 6.3 L Total Bilirubin 0.8 AST 2291 H ALT 1259 H Alkaline Phosphatase 80 Total Protein 3.5 L Albumin 1.5 L D Globulin 2.1 L Albumin/Globulin Ratio 0.7 L C. difficile Ag & Toxin Negative Fingerstick Blood Sugar Results: 112
[2018-09-20 16:18] VITALS: BP 119/46; PULSE 97; RESP 19; TEMP 99; O2SAT 99
[2018-09-20 16:30] LABS: CALCIUM 7.3 mg/dL (8.4-10.2)
--- NOTE | 2018-09-20 17:47 | CP.PCM.PRO ---
Pronouncement of Note - Clinical Findings Physical Exam: No Response Verbal/Painful Stimuli, Absent Peripheral Puls es{Carotid & Femoral}, Absent Heart & Breath Sounds, No Pupillary Light Reflex, No Corneal Reflex, Pupils Fixed & Dilated, Absence of Vital Signs - Notifications Pronouncement Notifications: Family Notified, Atending Notified Cigar Head Piercer Notified: No - Autopsy Autopsy Requested: No - N.Jud Certificate [place]ED[place] Number: [id number]
--- NOTE | 2018-09-21 07:45 | CP.PCM.DIS ---
Provider - Provider Date of Admission: 08/13/18 04:56 Attending physician: Meghan Gore MD Consults: 08/16/18 11:21 Cardiology Consult Routine Comment: Consulting Provider: Marissa Mendoza Consulting Physician: Marissa Mendoza Reason for Consult: nstemi, positive trop x 1 Infectious Disease Consult Routine Comment: Consulting Provider: Delvin Garcia Consulting Physician: Delvin Garcia Reason for Consult: bacteremia 08/16/18 18:44 Nephrology Consult Routine Comment: elevated bun , creat. Consulting Provider: Grover Linares Consulting Physician: Grover Linares Reason for Consult: bun creat. positive trops. 08/17/18 11:44 Surgical [General Surgery Consult] Routine Comment: Consulting Provider: Carlos Whitfield Consulting Physician: Carlos Whitfield Reason for Consult: Distended GB, cholelithiasis 08/23/18 17:09 Neurology Consult Routine Comment: Consulting Provider: Franco Garibay Consulting Physician: Franco Garibay Reason for Consult: Cardiac arrest 08/31/18 03:50 Nursing Referral for Wound Care Routine Comment: incontinence associated Physician Instructions: Reason For Exam: excoriation/redness to rico rectal area 09/01/18 12:27 Pulmonology Consult Routine Comment: Consulting Provider: Alex Sheppard Consulting Physician: Alex Sheppard Reason for Consult: pneumonia, s/p Extubated 08/30 Time Spent in preparation of Discharge (in minutes): 25 Diagnosis - Discharge Diagnosis (1) Cardiac arrest Status: Acute (2) Hyperkalemia Status: Acute (3) Metabolic acidosis Status: Acute (4) Multiorgan failure Status: Acute (5) Acute renal failure (ARF) Status: Acute (6) Acute respiratory failure Status: Acute (7) Septic shock Status: Acute (8) NSTEMI (non-ST elevated myocardial infarction) Status: Acute (9) Acute gastroenteritis Status: Acute (10) Abdominal pain in female Status: Resolved Priority: Medium (11) Dizziness Status: Acute Priority: Medium (12) Type 2 diabetes mellitus with hyperglycemia Status: Chronic Priority: Medium (13) Gallbladder disease Status: Acute (14) DVT (deep venous thrombosis) Status: Acute Priority: High (15) Pleural effusion Status: Acute Priority: High (16) Pneumonia Status: Acute (17) Acute CVA (cerebrovascular accident) Status: Acute Hospital Course - Lab Results Lab Results: Micro Results 09/16/18 18:32 Blood-Venous Blood Culture - Preliminary NO GROWTH AFTER 4 DAYS 09/16/18 18:22 Blood-Venous Blood Culture - Preliminary NO GROWTH AFTER 4 DAYS 09/12/18 08:00 Blood Blood Culture - Final NO GROWTH AFTER 5 DAYS 09/12/18 08:00 Blood Gram Stain - Final TEST NOT PERFORMED 09/12/18 06:20 Blood Blood Culture - Final NO GROWTH AFTER 5 DAYS 09/12/18 06:20 Blood Gram Stain - Final TEST NOT PERFORMED 09/14/18 17:11 Sputum Gram Stain - Final 09/14/18 17:11 Sputum Sputum Culture - Final NORMAL ORAL SUKHI 09/06/18 14:30 Other: Please Indicate Mycobacterial Culture - Preliminary 09/06/18 14:30 Pleural Fluid Fungal Culture - Preliminary NO FUNGUS GROWTH IN 1 WEEK. 09/10/18 15:48 Stool Ova and Parasite Concentrate Exam - Final 09/06/18 14:30 Pleural Fluid Gram Stain - Final 09/06/18 14:30 Pleural Fluid Body Fluid Culture - Final No growth. 09/02/18 10:30 Blood-Thru Central Line Blood Culture - Final NO GROWTH AFTER 5 DAYS 09/02/18 10:30 Blood-Thru Central Line Gram Stain - Final TEST NOT PERFORMED 09/02/18 10:15 Blood-Thru Central Line Blood Culture - Final NO GROWTH AFTER 5 DAYS 09/02/18 10:15 Blood-Thru Central Line Gram Stain - Final TEST NOT PERFORMED 09/01/18 14:43 Trachasp Gram Stain - Final 09/01/18 14:43 Trachasp Sputum Culture - Final Yeast Species 09/02/18 11:00 Urine,Jin Urine Culture - Final Yeast Species 08/26/18 04:55 Blood-Venous Blood Culture - Final NO GROWTH AFTER 5 DAYS 08/26/18 04:55 Blood-Venous Gram Stain - Final TEST NOT PERFORMED 08/26/18 04:50 Blood-Venous Blood Culture - Final NO GROWTH AFTER 5 DAYS 08/26/18 04:50 Blood-Venous Gram Stain - Final TEST NOT PERFORMED 08/24/18 12:30 Blood-Venous Blood Culture - Final NO GROWTH AFTER 5 DAYS 08/24/18 12:30 Blood-Venous Gram Stain - Final TEST NOT PERFORMED 08/23/18 18:07 Blood-Venous Blood Culture - Final NO GROWTH AFTER 5 DAYS 08/23/18 18:07 Blood-Venous Gram Stain - Final TEST NOT PERFORMED 08/23/18 18:07 Blood-Venous Blood Culture - Final NO GROWTH AFTER 5 DAYS 08/23/18 18:07 Blood-Venous Gram Stain - Final TEST NOT PERFORMED 08/24/18 12:45 Blood-Venous S.aureus & Coag-Neg Staph PNA FISH - Final 08/24/18 12:45 Blood-Venous Blood Culture - Final Vancomycin Resistant E.faecium 08/24/18 12:45 Blood-Venous Gram Stain - Final 08/23/18 17:37 Urine,Jin Urine Culture - Final No Growth (<1,000 CFU/ML) 08/23/18 18:15 Trachasp Gram Stain - Final 08/23/18 18:15 Trachasp Sputum Culture - Final Yeast Species 08/19/18 11:13 Blood Blood Culture - Final NO GROWTH AFTER 5 DAYS 08/19/18 11:13 Blood Gram Stain - Final TEST NOT PERFORMED 08/16/18 12:57 Blood Blood Culture - Final NO GROWTH AFTER 5 DAYS 08/16/18 12:57 Blood Gram Stain - Final TEST NOT PERFORMED 08/19/18 11:11 Sputum Gram Stain - Final 08/19/18 11:11 Sputum Sputum Culture - Final NORMAL ORAL SUKHI 08/19/18 11:11 Naris MRSA Culture (Admit) - Final MRSA NOT DETECTED 08/19/18 11:11 Urine,Catheterized Urine Culture - Final No Growth (<1,000 CFU/ML) 08/14/18 14:30 Blood Blood Culture - Final NO GROWTH AFTER 5 DAYS 08/14/18 14:30 Blood Gram Stain - Final TEST NOT PERFORMED 08/13/18 05:52 Blood Blood Culture - Final Coagulase Neg Staphylococcus 08/13/18 05:52 Blood Gram Stain - Final 08/13/18 05:22 Blood S.aureus & Coag-Neg Staph PNA FISH - Final 08/13/18 05:22 Blood Blood Culture - Final Coagulase Neg Staphylococcus 08/13/18 05:22 Blood Gram Stain - Final Most Recent Lab Values WBC 35.3 K/uL (4.8-10.8) H 09/20/18 05:13 RBC 2.67 Mil/uL (3.80-5.20) L 09/20/18 05:13 Hgb 7.6 g/dL (12.0-16.0) L 09/20/18 05:13 Hct 24.5 % (34.0-47.0) L 09/20/18 05:13 MCV 91.8 fl (81.0-99.0) 09/20/18 05:13 MCH 28.5 pg (27.0-31.0) 09/20/18 05:13 MCHC 31.1 g/dL (33.0-37.0) L 09/20/18 05:13 RDW 22.7 % (11.5-14.5) H 09/20/18 05:13 Plt Count 98 K/uL (130-400) L D 09/20/18 05:13 MPV 12.8 fl (7.2-11.7) H 09/20/18 05:13 Neut % (Auto) 95.1 % (50.0-75.0) H 09/20/18 05:13 Lymph % (Auto) 1.2 % (20.0-40.0) L 09/20/18 05:13 [place] % (Auto) 3.5 % (0.0-10.0) 09/20/18 05:13 Eos % (Auto) 0.0 % (0.0-4.0) 09/20/18 05:13 Baso % (Auto) 0.2 % (0.0-2.0) 09/20/18 05:13 Neut # (Auto) 33.6 K/uL (1.8-7.0) H 09/20/18 05:13 Lymph # (Auto) 0.4 K/uL (1.0-4.3) L 09/20/18 05:13 [place] # (Auto) 1.2 K/uL (0.0-0.8) H 09/20/18 05:13 Eos # (Auto) 0.0 K/uL (0.0-0.7) 09/20/18 05:13 Baso # (Auto) 0.1 K/uL (0.0-0.2) 09/20/18 05:13 Neutrophils % (Manual) 90 % (42-75) H 09/20/18 05:13 Band Neutrophils % 5 % (0-2) H 09/20/18 05:13 Lymphocytes % (Manual) 4 % (20-50) L 09/20/18 05:13 Monocytes % (Manual) 1 % (0-10) 09/20/18 05:13 Eosinophils % (Manual) 1 % (0-7) 09/09/18 04:25 Nucleated RBC % 1 % (0-0) H 09/03/18 05:30 Toxic Granulation Present 09/18/18 04:20 Platelet Estimate Decreased (NORMAL) L 09/20/18 05:13 Plt Clumps, EDTA Present 09/19/18 07:30 Large Platelets Present 09/19/18 07:30 Giant Platelets Present 09/03/18 05:30 Hypochromasia (manual) Slight 09/20/18 05:13 Poikilocytosis (manual Slight 09/20/18 05:13 Anisocytosis (manual) Slight 09/20/18 05:13 Macrocytosis (manual) Slight 09/09/18 04:25 Spherocytes Slight 09/09/18 04:25 Tear Drop Cells Slight 09/18/18 04:20 Ovalocytes Slight 09/19/18 07:30 Schistocytes Slight 09/18/18 04:20 ESR 29 mm/hr (0-30) 09/15/18 08:07 Retic Count 3.9 % (0.5-1.5) H 08/22/18 12:39 Haptoglobin 251.1 mg/dL (30.0-200.0) H 08/22/18 12:39 PT 12.1 Seconds (9.8-13.1) 09/14/18 13:30 INR 1.1 09/14/18 13:30 APTT 24.8 Seconds (25.6-37.1) L 09/14/18 13:30 D-Dimer, Quantitative 1790 ng/mlDDU (0-230) H 08/17/18 13:05 Protein C Activity 141 % (70-180) 09/09/18 04:25 Protein S Activity 71 % (60-140) 09/09/18 04:25 pCO2 27 mm/Hg (35-45) L 09/19/18 04:21 pO2 92 mm/Hg (80-100) 09/19/18 04:21 HCO3 21.5 mmol/L (21-28) 09/19/18 04:21 ABG pH 7.44 (7.35-7.45) 09/19/18 04:21 ABG Total CO2 19.1 mmol/L (22-28) L 09/19/18 04:21 ABG O2 Saturation 99.5 % (95-98) H 09/19/18 04:21 ABG O2 Content 13.8 ML/dL (15-23) L 09/16/18 04:47 ABG Base Excess -4.4 mmol/L (-2.0-3.0) L 09/19/18 04:21 ABG Hemoglobin 9.8 g/dL (11.7-17.4) L 09/16/18 04:47 ABG Carboxyhemoglobin 1.4 % (0.5-1.5) 09/16/18 04:47 POC ABG HHb (Measured) -0.5 % (0.0-5.0) L 09/16/18 04:47 ABG Methemoglobin 1.6 % (0.0-3.0) 09/16/18 04:47 ABG O2 Capacity 13.7 mL/dL (16-24) L 09/16/18 04:47 Masoud Test Yes 09/19/18 04:21 ABG Potassium 6.0 mmol/L (3.6-5.2) H 09/19/18 04:21 VBG pH 7.48 (7.32-7.43) H 09/09/18 08:49 VBG pCO2 46 mmHg (40-60) 09/09/18 08:49 VBG HCO3 32.0 mmol/L 09/09/18 08:49 VBG Total CO2 35.7 mmol/L (22-28) H 09/09/18 08:49 VBG O2 Sat (Calc) 82.6 % (40-65) H 09/09/18 08:49 VBG Base Excess 9.6 mmol/L (0.0-2.0) H 09/09/18 08:49 VBG Potassium 3.7 mmol/L (3.6-5.2) 09/09/18 08:49 A-a O2 Difference 88.0 mm/Hg 09/19/18 04:21 Hgb O2 Saturation 97.5 % (95.0-98.0) 09/16/18 04:47 Sodium 149.0 mmol/L (132-148) H 09/19/18 04:21 Chloride 120.0 mmol/L (98-107) H 09/19/18 04:21 Glucose 405 mg/dL (65-105) H* D 09/19/18 04:21 Lactate 5.9 mmol/L (0.7-2.1) H* 09/19/18 04:21 Liter Flow 20 09/08/18 23:44 Vent Mode Prvc a/c 09/19/18 04:21 Mechanical Rate 14 09/19/18 04:21 FiO2 30.0 % 09/19/18 04:21 Tidal Volume 400 09/19/18 04:21 PEEP 5 09/19/18 04:21 Pressure Support 8 08/30/18 18:14 CPAP 5 08/30/18 18:14 Crit Value Called To Joselo giang rn 09/19/18 04:21 Crit Value Called By Peri 09/19/18 04:21 Crit Value Read Back Y 09/19/18 04:21 Blood Gas Notified Time 440 09/19/18 04:21 Sodium 145 mmol/l (132-148) 09/20/18 15:59 Potassium 7.1 MMOL/L (3.6-5.0) H* D 09/20/18 15:59 Chloride 117 mmol/L (98-107) H 09/20/18 15:59 Carbon Dioxide 8 mmol/L (22-30) L* 09/20/18 15:59 Anion Gap 27 (10-20) H 09/20/18 15:59 BUN 104 mg/dl (7-17) H* 09/20/18 15:59 Creatinine 2.7 mg/dl (0.7-1.2) H 09/20/18 15:59 Est GFR ( Amer) 21 09/20/18 15:59 Est GFR (Non-Af Amer) 17 09/20/18 15:59 POC Glucose (mg/dL) 141 mg/dL (65-110) H 09/20/18 05:09 Random Glucose 70 mg/dL (65-105) 09/20/18 15:59 Hemoglobin A1c 9.3 % (4.2-6.5) H 09/18/18 04:20 Lactic Acid 2.3 MMOL/L (0.7-2.1) H 09/15/18 08:06 Calcium 7.3 mg/dL (8.4-10.2) L 09/20/18 15:59 Phosphorus 13.4 mg/dl (2.5-4.5) H 09/20/18 15:59 Magnesium 2.8 MG/DL (1.6-2.3) H 09/20/18 15:59 RBC Magnesium 6.1 mg/dL (4.0-6.4) 09/15/18 08:07 Iron 28 ug/dL (37-170) L 08/22/18 12:39 TIBC 199 ug/dL (250-450) L 08/22/18 12:39 % Saturation 14 % (20-55) L 08/22/18 12:39 Ferritin 147.0 ng/Ml (11.1-264.0) 08/22/18 12:39 Total Bilirubin 0.8 mg/dl (0.2-1.3) 09/20/18 05:13 Direct Bilirubin 0.7 mg/ml (0.0-0.4) H 08/23/18 06:00 AST 2291 U/L (14-36) H 09/20/18 05:13 ALT 1259 U/L (9-52) H 09/20/18 05:13 Alkaline Phosphatase 80 U/L (38-126) 09/20/18 05:13 Troponin I 1.1800 ng/mL (0.00-0.120) H* 09/02/18 11:00 C-React Prot High Sens > 15.00 mg/L (1.00-3.00) H 09/09/18 05:00 NT-Pro-B Natriuret Pep 34410 pg/ml (0-900) H 09/15/18 08:07 Total Protein 3.5 G/DL (6.3-8.2) L 09/20/18 05:13 Albumin 1.5 g/dL (3.5-5.0) L D 09/20/18 05:13 Globulin 2.1 gm/dL (2.2-3.9) L 09/20/18 05:13 Albumin/Globulin Ratio 0.7 (1.0-2.1) L 09/20/18 05:13 Triglycerides 137 mg/DL (0-149) 08/19/18 04:45 Cholesterol 61 mg/dL (0-199) 08/19/18 04:45 LDL Cholesterol Direct < 30 mg/dL (0-129) 08/19/18 04:45 HDL Cholesterol 35 MG/DL (30-70) 08/19/18 04:45 Amylase 108 U/L (30-110) 09/09/18 04:25 Lipase 238 U/L (23-300) 09/09/18 04:25 Vitamin B12 760 pg/mL (239-931) 08/22/18 12:39 Procalcitonin 0.07 NG/ML (0.19-0.49) L 09/13/18 14:30 TSH 3rd Generation 1.00 mIU/ML (0.46-4.68) 09/09/18 04:25 Arterial Blood Potassium 6.0 mmol/L (3.6-5.2) H 09/19/18 04:21 Venous Blood Potassium 3.7 mmol/L (3.6-5.2) 09/09/18 08:49 Urine Color Yellow (YELLOW) 09/16/18 18:42 Urine Clarity Cloudy (Clear) 09/16/18 18:42 Urine pH 5.0 (5.0-8.0) 09/16/18 18:42 Ur Specific [place] 1.014 (1.003-1.030) 09/16/18 18:42 Urine Protein 30 mg/dL (NEGATIVE) 09/16/18 18:42 Urine Glucose (UA) >=500 mg/dL (NEGATIVE) 09/16/18 18:42 Urine Ketones Negative mg/dL (NEGATIVE) 09/16/18 18:42 Urine Blood Moderate (NEGATIVE) 09/16/18 18:42 Urine Nitrate Negative (NEGATIVE) 09/16/18 18:42 Urine Bilirubin Negative (NEGATIVE) 09/16/18 18:42 Urine Urobilinogen 0.2-1.0 mg/dL (0.2-1.0) 09/16/18 18:42 Ur Leukocyte Esterase Trace Ct/uL (Negative) 09/16/18 18:42 Urine RBC (Auto) 18 /hpf (0-3) H 09/16/18 18:42 Urine Microscopic WBC 15 /hpf (0-5) H 09/02/18 11:00 Ur Squamous Epith Cells < 1 /hpf (0-5) 09/16/18 18:42 Uric Acid Crystals Rare /hpf (<OCC) 08/19/18 11:11 Amorphous Sediment Rare /ul (<OCC) H 09/16/18 18:42 Urine Bacteria Occ (<OCC) H 09/02/18 11:00 Hyaline Casts 11-20 /hpf (0-2) H 09/16/18 18:42 Urine Yeast (Budding) Many /hpf (NEGATIVE) H 09/02/18 11:00 Fluid Source Pleural/thoracentesi 09/06/18 14:30 Fluid Appearance Clear (CLEAR) 09/06/18 14:30 Fluid WBC 53.0 /mm3 (0.0-300.0) 09/06/18 14:30 Fluid RBC 590.0 /mm3 (0.0-0.0) H 09/06/18 14:30 Fluid Tot Cell Count 100 (0-0) H 09/06/18 14:30 Fluid Neutrophils 34.0 % (0-0) H 09/06/18 14:30 Fluid Lymphocytes 22.0 % (0-0) H 09/06/18 14:30 Fld Monocyte/Macrophag 44 % (0-0) H 09/06/18 14:30 Fluid Glucose 315 mg/dL (NONE ESTABLISHED) 09/06/18 14:30 Fluid Total Protein < 2.0 g/dL (NONE ESTABLISHED) 09/06/18 14:30 Fluid LDH 303 IU (NONE ESTABLISHED) 09/06/18 14:30 Fluid Comment Clear 09/06/18 14:30 Stool Occult Blood Positive (NEGATIVE) H 08/22/18 17:21 Vancomycin Trough 9.9 ug/mL (5.0-10.0) 09/12/18 04:30 Random Vancomycin 10.2 ug/mL 08/18/18 05:00 Rheumatoid Factor IgG <5 U (<=6) 09/09/18 04:25 Rheumatoid Factor IgA <5 U (<=6) 09/09/18 04:25 Rheumatoid Factor IgM <5 U (<=6) 09/09/18 04:25 INNA Screen Negative (Negative) 09/09/18 04:25 ANCA Screen Negative (NEGATIVE) 09/09/18 04:25 c-ANCA Titer TNP 09/09/18 04:25 Proteinase 3 (PR3) <1.0 AI (<1.0) 09/09/18 04:25 p-ANCA Titer TNP 09/09/18 04:25 Atypical p-ANCA Titer TNP 09/09/18 04:25 Myeloperoxidase Ab <1.0 AI (<1.0) 09/09/18 04:25 Double Strand DNA Ab <1 IU/mL 09/13/18 04:25 Anti-Mitochondrial Ab Negative (Negative) 09/09/18 04:25 [id number]-2-[id number] Ab 37 HEVER (<=20) H 09/09/18 04:25 Beta-2 GPI IgG Ab <9 SGU (<=20) 09/09/18 04:25 Beta-2 GPI IgM Ab <9 SMU (<=20) 09/09/18 04:25 Phosphatidylserine IgG 13 U/mL (<10) H 09/09/18 04:25 Phosphatidylserine IgA <20 U/mL (<20) 09/09/18 04:25 Phosphatidylserine IgM <25 U/mL (<25) 09/09/18 04:25 Anti-Phospholipid Intrp see note 09/09/18 04:25 Anti-Cardiolipin IgG Ab <14 GPL (<=14) 09/09/18 04:25 Anti-Cardiolipin IgA Ab <11 APL (<=11) 09/09/18 04:25 Anti-Cardiolipin IgM Ab <12 MPL (<=12) 09/09/18 04:25 Tot Complement (CH50) >60 U/mL (31-60) H 09/09/18 04:25 Lyme IgG 18 kDa Band Nonreactive 09/09/18 04:25 Lyme IgG 23 kDa Band Nonreactive 09/09/18 04:25 Lyme IgG 28 kDa Band Nonreactive 09/09/18 04:25 Lyme IgG 30 kDa Band Nonreactive 09/09/18 04:25 Lyme IgG 39 kDa Band Nonreactive 09/09/18 04:25 Lyme IgG 41 kDa Band Reactive H 09/09/18 04:25 Lyme IgG 45 kDa Band Nonreactive 09/09/18 04:25 Lyme IgG 58 kDa Band Nonreactive 09/09/18 04:25 Lyme IgG 66 kDa Band Nonreactive 09/09/18 04:25 Lyme IgG 93 kDa Band Nonreactive 09/09/18 04:25 Lyme IgG W Blot Interp Negative (Negative) 09/09/18 04:25 Lyme IgM 23 kDa Band Nonreactive 09/09/18 04:25 Lyme IgM 39 kDa Band Nonreactive 09/09/18 04:25 Lyme IgM 41 kDa Band Nonreactive 09/09/18 04:25 Lyme IgM W Blot Interp Negative (Negative) 09/09/18 04:25 C. difficile Ag & Toxin Negative (NEGATIVE) 09/20/18 10:30 Ur L.pneumophila Ag Negative (NEGATIVE) 09/01/18 16:45 Beta-(1,3)-D-Glucan 75 pg/mL (<60) H 09/14/18 16:46 B-(1,3)-D-Glucan Intrp Indeterminate H 09/14/18 16:46 Blood Type O POSITIVE 09/02/18 10:15 Blood Type Confirm O POSITIVE 08/21/18 04:30 Antibody Screen Negative 09/02/18 10:15 Crossmatch See Detail 09/02/18 10:15 BBK History Checked Patient has bt 09/02/18 10:15 Discharge Exam - Head Exam Head Exam: NORMOCEPHALIC Discharge Plan - Follow Up Plan Condition: Disposition: WITH WITHOUT AUTOPSY Referrals: Lev Roy MD [Medical Doctor] - Meghan Gore MD [Staff Provider] -
--- NOTE | 2018-09-22 01:11 | PQF ---
PROVIDER RESPONSE TEXT: NSTEMI- Not Present on Admission REVIEWER QUERY TEXT: Present On Admission It is unclear whether a diagnosis was present on admission. Your help is needed. Please clarify the POA status of NSTEMI Such as: -- Present on admission -- Not present on admission The patient's Clinical Indicators include: NSTEMI Query created by: Miriam Rubalcava on 09/21/2018 2:08 PM Electronically signed by: Meghan Gore MD 09/22/2018 1:08 AM
--- NOTE | 2018-09-22 01:11 | PQF ---
PROVIDER RESPONSE TEXT: C. Diff Colitis- Unable to Confirm Diagnosis REVIEWER QUERY TEXT: Documentation Clarification Your help is requested in clarifying the following clinical documentation, if you can please further specify in the medical record and discharge summary if diagnosis of cdiff colitis was ruled in or out . The patient's Clinical Indicators include: 09/[address] Real "high suspicion for cdiff colitis." Query created by: Miriam Rubalcava on 09/21/2018 2:12 PM Electronically signed by: Meghan Gore MD 09/22/2018 1:08 AM
== END 2018-09-20 22:26 ==
LOC: H.ER 23:53 → H.ERHOLD 08-13 04:56 → H.TEL 08-13 09:07 → H.MEDSURG1 08-14 01:20 → H.TEL 08-14 21:51 → H.ICU/CCU 08-19 09:55
PROVIDERS: ADMIT Internal Medicine; ATTEND Internal Medicine
PROC: 5A1955Z Respiratory Ventilation, Greater than 96 Consecutive Hours (ICD-10-PCS; 2018-08-19)
PROC: 0BH17EZ Insertion of Endotracheal Airway into Trachea, Via Natural or Artificial Opening (ICD-10-PCS; 2018-08-19)
PROC: 30233N1 Transfusion of Nonautologous Red Blood Cells into Peripheral Vein, Percutaneous Approach (ICD-10-PCS; 2018-08-22)
PROC: 0BH17EZ Insertion of Endotracheal Airway into Trachea, Via Natural or Artificial Opening (ICD-10-PCS; 2018-09-01)
PROC: 0W9B3ZZ Drainage of Left Pleural Cavity, Percutaneous Approach (ICD-10-PCS; 2018-09-06)
PROC: 0W993ZZ Drainage of Right Pleural Cavity, Percutaneous Approach (ICD-10-PCS; 2018-09-06)
PROC: 0BH17EZ Insertion of Endotracheal Airway into Trachea, Via Natural or Artificial Opening (ICD-10-PCS; 2018-09-09)
PROC: 0W9B30Z Drainage of Left Pleural Cavity with Drainage Device, Percutaneous Approach (ICD-10-PCS; 2018-09-12)
PROC: 0W9930Z Drainage of Right Pleural Cavity with Drainage Device, Percutaneous Approach (ICD-10-PCS; 2018-09-12)
PROC: 3E033XZ Introduction of Vasopressor into Peripheral Vein, Percutaneous Approach (ICD-10-PCS; principal; 2018-09-20)
DX: I25.118 Atherosclerotic heart disease of native coronary artery with other forms of angina pectoris (principal); I21.4 Non-ST elevation (NSTEMI) myocardial infarction; N17.0 Acute kidney failure with tubular necrosis; I63.532 Cerebral infarction due to unspecified occlusion or stenosis of left posterior cerebral artery; J69.0 Pneumonitis due to inhalation of food and vomit; R65.21 Severe sepsis with septic shock; J96.21 Acute and chronic respiratory failure with hypoxia; A41.81 Sepsis due to Enterococcus; G93.41 Metabolic encephalopathy; J98.11 Atelectasis; J91.8 Pleural effusion in other conditions classified elsewhere; I82.411 Acute embolism and thrombosis of right femoral vein; R78.81 Bacteremia; G93.1 Anoxic brain damage, not elsewhere classified; T83.83XA Hemorrhage due to genitourinary prosthetic devices, implants and grafts, initial encounter; Z99.11 Dependence on respirator [ventilator] status; E87.2 Acidosis; E87.0 Hyperosmolality and hypernatremia; E86.0 Dehydration; K52.9 Noninfective gastroenteritis and colitis, unspecified; I46.9 Cardiac arrest, cause unspecified; I16.0 Hypertensive urgency; E11.65 Type 2 diabetes mellitus with hyperglycemia; E87.6 Hypokalemia; K29.70 Gastritis, unspecified, without bleeding; E78.00 Pure hypercholesterolemia, unspecified; Z79.84 Long term (current) use of oral hypoglycemic drugs; I11.0 Hypertensive heart disease with heart failure; I50.9 Heart failure, unspecified; Z16.21 Resistance to vancomycin; Z78.1 Physical restraint status; B95.7 Other staphylococcus as the cause of diseases classified elsewhere; D64.89 Other specified anemias; E87.8 Other disorders of electrolyte and fluid balance, not elsewhere classified; Y84.6 Urinary catheterization as the cause of abnormal reaction of the patient, or of later complication, without mention of misadventure at the time of the procedure; R31.9 Hematuria, unspecified; E87.5 Hyperkalemia; T50.8X5A Adverse effect of diagnostic agents, initial encounter